=== PATIENT | male | born 1965 | race Hispanic/Latino ===

== ENCOUNTER 2019-06-17 14:10 | Emergency (ER) | payer SELFPAY ==
[~2019-06-17] VITALS: Ht 177.8 cm; Wt 99.8 kg
[2019-06-17 15:20] LABS: ANION GAP 14.8 mmol/L (8-16); CALCIUM 9.2 mg/dL (8.4-10.2); CREATININE, SERUM 4.43 mg/dL (0.72-1.25); POTASSIUM 3.8 mmol/L (3.5-5.1)
== END 2019-06-17 17:32 | disposition home or self-care (01) ==
LOC: ER 14:10
DX: R94.4 Abnormal results of kidney function studies (principal); I12.0 Hypertensive chronic kidney disease with stage 5 chronic kidney disease or end stage renal disease; E11.22 Type 2 diabetes mellitus with diabetic chronic kidney disease; N18.6 End stage renal disease; Z99.2 Dependence on renal dialysis
CPT/HCPCS: 36415; 80048; 99284

== ENCOUNTER 2019-10-18 10:16 | Inpatient (IN) | payer MEDICARE, OTHER ==
[2019-10-17 19:47] VITALS: BP 150/76
[~2019-10-18] VITALS: Ht 177.8 cm; Wt 87.8 kg
[~2019-10-18 10:16] MED LIST: CARVEDILOL12.5 MG PO; FLOMAX0.4 MG PO; LISINOPRIL10 MG PO; METFORMIN HCL500 MG PO
[2019-10-18 12:58] LABS: BASOPHILS % 0.6 % (0.0-1.0); EOSINOPHILS % 0.6 % (0.0-6.0); LYMPHOCYTES # (AUTO) 0.3 (1.0-3.2); LYMPHOCYTES % 6.4 % (18.0-39.1); MEAN CORPUSCULAR HEMOGLOBIN 33.5 pg (28-32); MEAN CORPUSCULAR HGB CONC 33.7 g/dL (31-35); MEAN CORPUSCULAR VOLUME 99.5 fL (81-99); MONOCYTES # (AUTO) 0.7 (0.2-0.8); NEUTROPHILS # (AUTO) 3.8 (2.1-6.9); NEUTROPHILS % 77.4 % (38.7-80.0); PLATELET COUNT 103 x10e3/uL (140-360); RED BLOOD COUNT 1.82 x10e6/uL (4.3-5.7); RED CELL DISTRIBUTION WIDTH 20.3 % (11.7-14.4)
[2019-10-18 13:00] LABS: HEMOGLOBIN 6.1 g/dL (14.0-18.0)
[2019-10-18 13:01] LABS: HEMATOCRIT 18.1 % (38.2-49.6)
[2019-10-18 13:02] LABS: INR 1.11
[2019-10-18 13:03] LABS: PARTIAL THROMBOPLASTIN TIME 30.1 seconds (23.8-35.5)
[2019-10-18 13:09] LABS: ALBUMIN 2.6 g/dL (3.5-5.0); ALBUMIN/GLOBULIN RATIO 0.7 (0.8-2.0); ANION GAP 16.6 mmol/L (8-16); CALCIUM 8.7 mg/dL (8.4-10.2); CREATININE, SERUM 4.43 mg/dL (0.72-1.25); POTASSIUM 4.6 mmol/L (3.5-5.1)
[2019-10-18 14:56] LABS: CREATINE KINASE MB 1.2 ng/mL (0-5.0)
[2019-10-18 15:20] VITALS: BP 142/70
--- NOTE | 2019-10-18 15:20 | NUR ---
Received patient from ER lying in bed with eyes open. Respiration even and unlabored without SOB. Call light in reach.
--- NOTE | 2019-10-18 15:20 | NUR ---
Verbal order given by Dr. Medina to call Dialysis for stat HD and transfuse 2 Units PRBC with HD.
[2019-10-18 16:02] VITALS: BP 142/70
[2019-10-18] MEDS ORDERED: ONDANSETRON HCL INJ 2MG/ML 2ML 2 MG/ML VIAL IV PRN (16:15)
[2019-10-18] MEDS ORDERED: DIPHENHYDRAMINE HCL 25 MG CAP PO PRN (16:15)
[2019-10-18] MEDS ORDERED: DEXTROSE 50% SYRINGE 50 ML IV PRN (16:45)
[2019-10-18] MEDS ORDERED: NEOMYCIN/POLYMYXIN/BACITRACIN 15 GM TUBE TOP PRN (17:15)
[2019-10-18] MEDS: INSULIN LISPRO 100 UNIT/1 ML 3ML VIAL SQ SCH ×2 (17:20→22:32)
[2019-10-18] MEDS: SALINE 0.65% NAS SOLN 1 SPRAY BTL SCH ×2 (17:25→23:54)
[2019-10-18] MEDS: CARVEDILOL 3.125 MG TAB PO SCH (17:46)
[2019-10-18] MEDS: SODIUM CHLORIDE 0.9% 250ML 250 ML IV ONE ×2 (17:46→17:47)
[2019-10-18] MEDS ORDERED: SODIUM CHLORIDE 0.9% 1000ML 2,000 ML ONE (18:42)
--- NOTE | 2019-10-18 19:03 | NUR ---
Report given to shift production supervisor. Respiratory even and unlabored without SOB. Call light in reach.
[2019-10-18 19:47] VITALS: BP 150/76
--- NOTE | 2019-10-18 19:47 | NUR ---
NOTIFIED DR. BOWLES AT THIS TIME REGARDING TEMP READING 100.8. SAID TO GIVE TYLENOL PO 975MG ONCE AND PROCEED WITH BLOOD TRANSFUSION. ALSO ORDERED CXRAY.
[2019-10-18] MEDS ORDERED: ACETAMINOPHEN 325 MG TAB PO STA (19:48)
--- NOTE | 2019-10-18 20:15 | Consultation ---
DATE OF CONSULTATION: 10/18/2019 Hospital Consultation HISTORY OF PRESENT ILLNESS: I was kindly asked to see this 54-year-old man for evaluation of epistaxis. He is known to me from his recent hospitalization at [facility], where his epistaxis was treated with silver nitrate cautery, which failed to adequately control his symptoms followed by Surgicel packing. The patient reports he presented to another physician to have the packing removed and within a half hour after removal of the nasal packing, he began having intermittent right-sided nasal bleeding. He presented to [facility] Emergency Department with a complaint of weakness and was found to be anemic and was admitted for evaluation and treatment. PAST MEDICAL HISTORY AND PAST SURGICAL HISTORY: Reviewed in detail in the chart and is pertinent for end-stage renal disease, necessitating dialysis. PHYSICAL EXAMINATION: The tympanic membranes and external auditory canals are normal bilaterally. He has a moderate nasal septal deviation to the left. There is vasodilation of fresh blood in the right nasal cavity. The nose was anesthetized with 2% Pontocaine and decongested with Afrin. On fiberoptic diagnostic rhinoscopy, the only bleeding point identified was the right mid and anterior nasal septum. This area was cauterized with silver nitrate. Oral cavity and pharyngeal examination were unremarkable. There was no palpable cervical adenopathy. ASSESSMENT: 1. Epistaxis. 2. Nasal septal deviation. 3. Status post silver nitrate cautery of right anterior nasal septum. PLAN: 1. [place] nasal spray 2 puffs each side of nose q.4 hours while awake. 2. Neosporin ointment applied to each side of the nose t.i.d. Thank you very much for this consultation. MD ELIEL Tolentino/SABINEL /[id number]
[2019-10-18] MEDS ORDERED: SODIUM CHLORIDE 0.9% 1000ML 2,000 ML IV PRN (21:00)
[2019-10-18] MEDS ORDERED: SODIUM CHLORIDE 0.9% 250ML 500 ML IV PRN (21:00)
[2019-10-18] MEDS ORDERED: HEPARIN SOD (PORCINE) 1000 UNIT/ML SDV IV PRN (21:00)
--- NOTE | 2019-10-18 21:06 | Diagnostic Imaging Report ---
EXAM: CHEST SINGLE (PORTABLE) DATE: 10/18/2019 7:48 PM INDICATION: ^FEVER ^[id number] ^2034 COMPARISON: Chest x-ray, 07/11/2019 FINDINGS: Lines and tubes: Stable appearance of tunneled right IJ dialysis catheter. Wire sternotomy sutures are again noted. There is mild enlargement of the cardiac silhouette, stable from last exam. There is mild central pulmonary vascular prominence which appears increased. No peripheral consolidation or large pleural effusion. No pneumothorax. Upper abdomen unremarkable. No acute bony abnormality. IMPRESSION: Cardiomegaly with central pulmonary vascular prominence appears increased since last exam. Likely interstitial edema asymmetrically prominent in the right lung. Signed by: Dr. Hema Zapata M.D. on 10/18/2019 9:03 PM
[2019-10-18 22:19] LABS: % IRON SATURATION 21 % (15-50); IRON 47 ug/dL (65-175); TOTAL IRON BINDING CAPACITY 223 ug/dL (261-478); TRANSFERRIN 159 mg/dL (174-364)
[2019-10-18] MEDS: NEOMYCIN/POLYMYXIN/BACITRACIN 15 GM TUBE TOP SCH (22:32)
[2019-10-18 22:55] LABS: FOLATE 9.5 ng/mL (7.0-15.4)
[2019-10-18 23:09] LABS: FERRITIN > 2000.00 ng/mL (21.81-274.66)
[2019-10-19] VITALS (8 sets, daily range): BP systolic 153–171; BP diastolic 73–79
[2019-10-19 06:14] LABS: BASOPHILS % 0.4 % (0.0-1.0); EOSINOPHILS % 0.6 % (0.0-6.0); HEMATOCRIT 24.4 % (38.2-49.6); HEMOGLOBIN 8.1 g/dL (14.0-18.0); LYMPHOCYTES # (AUTO) 0.3 (1.0-3.2); LYMPHOCYTES % 6.4 % (18.0-39.1); MEAN CORPUSCULAR HEMOGLOBIN 31.9 pg (28-32); MEAN CORPUSCULAR HGB CONC 33.2 g/dL (31-35); MEAN CORPUSCULAR VOLUME 96.1 fL (81-99); MONOCYTES # (AUTO) 0.6 (0.2-0.8); MONOCYTES % 12.5 % (4.4-11.3); NEUTROPHILS # (AUTO) 4.1 (2.1-6.9); NEUTROPHILS % 78.9 % (38.7-80.0); PLATELET COUNT 103 x10e3/uL (140-360); RED BLOOD COUNT 2.54 x10e6/uL (4.3-5.7); RED CELL DISTRIBUTION WIDTH 19.9 % (11.7-14.4)
--- NOTE | 2019-10-19 06:14 | Diagnostic Imaging Report ---
EXAMINATION: Chest AP portable INDICATION: Pulmonary edema. COMPARISON: 10/18/19 FINDINGS: TUBES and LINES: Tiny old right IJ dialysis catheter is unchanged in position. LUNGS: There is mild prominence of the central pulmonary vasculature, consistent with pulmonary venous congestion. Bibasilar subsegmental atelectasis. PLEURA: No pleural effusion or pneumothorax. HEART AND MEDIASTINUM: Cardiac size is mildly enlarged. BONES AND SOFT TISSUES: No acute osseous lesion. Median sternotomy wires. UPPER ABDOMEN: No free air under the diaphragm. Metallic wire projected on the superior left hemithorax, likely outside the patient. IMPRESSION: Bilateral pulmonary venous congestion, unchanged. Signed by: Dr. Ricki Handley M.D. on 10/19/2019 6:10 AM
[2019-10-19 06:23] LABS: PROTHROMBIN TIME 13.8 seconds (11.9-14.5)
[2019-10-19 06:30] LABS: ANION GAP 12.6 mmol/L (8-16); CALCIUM 8.9 mg/dL (8.4-10.2); CREATININE, SERUM 2.98 mg/dL (0.72-1.25); POTASSIUM 3.6 mmol/L (3.5-5.1)
[2019-10-19] MEDS: SALINE 0.65% NAS SOLN 1 SPRAY BTL SCH ×5 (06:33→21:29)
--- NOTE | 2019-10-19 06:50 | NUR ---
Received patient lying in bed with eyes open. Respiration even and unlabored without SOB. At this time noted productive coughing on patient. Last oral temperature is 99.9F. Call light in reach.
--- NOTE | 2019-10-19 07:48 | NUR ---
Patient is transferred to room 176. Report given to RNDanna. Patient's brother Stefan is notified about the room transfer.
[2019-10-19 08:02] LABS: ANISOCYTOSIS MODE; EOSINOPHILS % (MANUAL) 3 % (0-7); LYMPHOCYTES % (MANUAL) 6 % (19-48); MONOCYTES % (MANUAL) 6 % (3.4-9.0); MYELOCYTES % (MANUAL) 1 % (0-0); NEUTROPHILS % (MANUAL) 83 % (40-74); PLATELET ESTIMATE MODERATELY DECREASED; PLATELET MORPHOLOGY COMMENT NORMAL; RBC MORPHOLOGY COMMENT ABNORMAL
[2019-10-19] MEDS: INSULIN LISPRO 100 UNIT/1 ML 3ML VIAL SQ SCH ×4 (09:15→21:00)
[2019-10-19] MEDS: NEOMYCIN/POLYMYXIN/BACITRACIN 15 GM TUBE TOP SCH ×3 (09:17→21:28)
[2019-10-19] MEDS: CARVEDILOL 3.125 MG TAB PO SCH ×2 (09:17→17:39)
[2019-10-19] MEDS: CYANOCOBALAMIN INJ 1,000 MCG/ML VIAL IM SCH (09:18)
--- NOTE | 2019-10-19 10:32 | Diagnostic Imaging Report ---
EXAMINATION: CHEST SINGLE (PORTABLE) INDICATION: Cough, fever. COMPARISON: Chest radiograph 10/19/2019. FINDINGS: TUBES and LINES: Right IJ tunneled hemodialysis catheter with tip terminating at the cavoatrial junction. LUNGS: Low lung volumes with central vascular congestion. Patchy bibasilar opacities. Mild interstitial opacities. PLEURA: No pleural effusion or pneumothorax. HEART AND MEDIASTINUM: The cardiomediastinal silhouette is mildly enlarged, likely accentuated by portable technique. BONES AND SOFT TISSUES: No acute osseous abnormality. Status post median sternotomy. UPPER ABDOMEN: No free air under the diaphragm. IMPRESSION: Low lung volumes with central vascular congestion. Patchy bibasilar opacities, which may represent atelectasis or infection in the appropriate clinical setting. Signed by: Dr. Navarro Sapp MD on 10/19/2019 10:28 AM
[2019-10-19] MEDS ORDERED: CEFTRIAXONE SOD 1 GM/NS 50 ML 50 ML IV ONE (12:30)
[2019-10-19] MEDS ORDERED: DIPHENHYDRAMINE HCL 25 MG CAP PO ONE (12:30)
[2019-10-19] MEDS ORDERED: VANCOMYCIN 1GM/NS 250 ML 250 ML IV ONE (12:30)
[2019-10-19] MEDS ORDERED: DIPHENHYDRAMINE HCL 25 MG CAP PO NR (12:45)
--- NOTE | 2019-10-19 13:21 | NUR ---
DPA DONE VIA PHONE AND THROUGH RECORDS DUE TO ISOLATION.
[2019-10-19] MEDS: AZITHROMYCIN 250 MG TAB PO SCH (14:03)
--- NOTE | 2019-10-19 16:28 | NUR ---
informed receiving nurse patient with elevated temperature and call placed to MD for medication orders, no answer.
[2019-10-19] MEDS: LACTOBACILLUS ACIDOPHILUS CAPSULE PO SCH (17:43)
[2019-10-19] MEDS: EPOETIN ALFA-EPBX 10,000 UNIT/ML VIAL SC SCH (21:28)
[2019-10-20] VITALS (10 sets, daily range): BP systolic 133–185; BP diastolic 63–84
--- NOTE | 2019-10-20 01:14 | NUR ---
Dr. Lita alejandro for elevated temp.
[2019-10-20 05:43] LABS: BASOPHILS % 0.2 % (0.0-1.0); EOSINOPHILS % 0.2 % (0.0-6.0); HEMATOCRIT 22.7 % (38.2-49.6); HEMOGLOBIN 7.6 g/dL (14.0-18.0); LYMPHOCYTES # (AUTO) 0.3 (1.0-3.2); LYMPHOCYTES % 6.3 % (18.0-39.1); MEAN CORPUSCULAR HEMOGLOBIN 32.3 pg (28-32); MEAN CORPUSCULAR HGB CONC 33.5 g/dL (31-35); MEAN CORPUSCULAR VOLUME 96.6 fL (81-99); MONOCYTES # (AUTO) 0.6 (0.2-0.8); MONOCYTES % 11.2 % (4.4-11.3); NEUTROPHILS % 81.5 % (38.7-80.0); PLATELET COUNT 89 x10e3/uL (140-360); RED BLOOD COUNT 2.35 x10e6/uL (4.3-5.7); RED CELL DISTRIBUTION WIDTH 20.1 % (11.7-14.4)
[2019-10-20 05:59] LABS: ANION GAP 14.8 mmol/L (8-16); CALCIUM 8.5 mg/dL (8.4-10.2); CREATININE, SERUM 4.07 mg/dL (0.72-1.25); POTASSIUM 3.8 mmol/L (3.5-5.1)
[2019-10-20] MEDS: SALINE 0.65% NAS SOLN 1 SPRAY BTL SCH ×5 (06:38→21:13)
--- NOTE | 2019-10-20 07:00 | NUR ---
BEDSIDE SHIFT REPORT RECEIVED FROM THE SENIOR MEDIA DIRECTOR RN. EDUCATED PT ABOUT FALL PRECAUTIONS. PT VERBALIZED UNDERSTANDING. CALL LIGHT WITH IN EASY REACH. INSTRUCTED PT TO USE CALL LIGHT FOR ALL THE NEEDS. BED IS LOW AND LOCKED. SIDE RAILS X2. FAMILY MEMBER AT BEDSIDE.BED ALARM IS ON. PT DENIES NEEDS AT THIS TIME.
[2019-10-20] MEDS: NEOMYCIN/POLYMYXIN/BACITRACIN 15 GM TUBE TOP SCH ×3 (09:00→21:12)
[2019-10-20] MEDS: IRON SUCROSE 100 MG in SODIUM CHLORIDE 0.9% 100 ML 100 ML IV SCH (09:00)
[2019-10-20] MEDS: LACTOBACILLUS ACIDOPHILUS CAPSULE PO SCH ×2 (09:11→16:49)
[2019-10-20] MEDS: AZITHROMYCIN 250 MG TAB PO SCH (09:11)
[2019-10-20] MEDS: CARVEDILOL 3.125 MG TAB PO SCH ×2 (09:11→16:49)
[2019-10-20] MEDS: CYANOCOBALAMIN INJ 1,000 MCG/ML VIAL IM SCH (09:12)
[2019-10-20] MEDS: INSULIN LISPRO 100 UNIT/1 ML 3ML VIAL SQ SCH ×4 (09:29→21:00)
--- NOTE | 2019-10-20 12:10 | Consultation ---
DATE OF CONSULTATION: REASON FOR CONSULTATION: Pneumonia, bronchitis, viral. HISTORY OF PRESENT ILLNESS: This patient who is a 54-year-old male, history of diabetes mellitus, end-stage renal disease on hemodialysis, legally blind, on hemodialysis, Monday, Monday, Monday. He was recently diagnosed with liver cirrhosis. The patient comes in with nosebleed. Because of nose bleed the patient was admitted. He was already seen by ENT, by GI. Of interest, the patient also complained of cough and fever. Because we are in the mid of COVID-19 there was concern about that, so respiratory panel was sent and it came back, his human metapneumovirus was positive. The rest were all negative. The patient who is currently lying in bed comfortably. LABORATORY DATA: Reviewed. His white count is 4.86, hemoglobin 6.1 on admission, today is 7.6. He received 2 units of blood. Platelet 103, dropped to 89. His sodium 132, potassium 3.8, and creatinine 4.07. The patient was currently on insulin, probiotic, azithromycin and he received also a dose of Rocephin. His chest x-ray on October 18 showed low lung volume, congestion, patchy bibasilar opacities which may represent atelectasis. The patient is currently lying in bed comfortably. PHYSICAL EXAMINATION: GENERAL: He is currently alert, oriented, does not seem in acute distress. VITAL SIGNS: His T-max is 101.4. HEENT: Normocephalic. NECK: Supple. CHEST: Few crackles bilateral. COR: S1 and S2. No S3, S4, or murmur. ABDOMEN: Soft. Bowel sounds present. No tenderness. EXTREMITIES: No edema. SKIN: No rash. IMPRESSION: 1. Fever and the patient with liver cirrhosis, end-stage renal disease. Continue with Rocephin. Obtain blood culture. We probably have a viral pneumonitis on top of his other medical problem. 2. Liver cirrhosis. 3. End-stage renal disease, on hemodialysis. 4. Legally blind. 5. We will keep the patient on droplet isolation for the time being. We will follow. MD NERISSA Chang/MODL /[id number]
[2019-10-20] MEDS ORDERED: SODIUM CHLORIDE 0.9% 250ML 250 ML ONE (12:14)
[2019-10-20] MEDS: VANCOMYCIN 1GM/NS 250 ML 250 ML IV SCH (12:25)
[2019-10-20] MEDS: CEFTRIAXONE SOD 1 GM/NS 50 ML 50 ML IV SCH (12:25)
--- NOTE | 2019-10-20 19:45 | NUR ---
Received patient from day nurse, patient is alert and oriented x3. patient is legally blind and hence extreme fall precautions maintained.
[2019-10-21] VITALS (8 sets, daily range): BP systolic 128–159; BP diastolic 61–79
[2019-10-21] MEDS: PANTOPRAZOLE 40 MG 10ML VIAL IV SCH ×2 (02:44→10:50)
[2019-10-21 05:31] LABS: BASOPHILS % 0.1 % (0.0-1.0); HEMATOCRIT 21.6 % (38.2-49.6); HEMOGLOBIN 7.1 g/dL (14.0-18.0); LYMPHOCYTES # (AUTO) 0.4 (1.0-3.2); LYMPHOCYTES % 5.5 % (18.0-39.1); MEAN CORPUSCULAR HEMOGLOBIN 32.1 pg (28-32); MEAN CORPUSCULAR HGB CONC 32.9 g/dL (31-35); MEAN CORPUSCULAR VOLUME 97.7 fL (81-99); MONOCYTES # (AUTO) 0.6 (0.2-0.8); NEUTROPHILS # (AUTO) 6.8 (2.1-6.9); NEUTROPHILS % 86.8 % (38.7-80.0); PLATELET COUNT 81 x10e3/uL (140-360); RED BLOOD COUNT 2.21 x10e6/uL (4.3-5.7); RED CELL DISTRIBUTION WIDTH 18.9 % (11.7-14.4)
[2019-10-21 05:51] LABS: ALBUMIN 2.4 g/dL (3.5-5.0); ANION GAP 18.1 mmol/L (8-16); BILIRUBIN,DIRECT 6.8 mg/dL (0.0-0.5); CALCIUM 8.4 mg/dL (8.4-10.2); POTASSIUM 4.1 mmol/L (3.5-5.1)
--- NOTE | 2019-10-21 07:13 | NUR ---
Patient condition throughout the night was stable, patient endorsed to next shift for continuity of care.
--- NOTE | 2019-10-21 07:52 | NUR ---
Paged to notify of Hgb 7.1
[2019-10-21] MEDS ORDERED: SODIUM CHLORIDE 0.9% 250ML 250 ML IV ONE (08:30)
[2019-10-21] MEDS: AZITHROMYCIN 250 MG TAB PO SCH (08:56)
[2019-10-21] MEDS: LACTOBACILLUS ACIDOPHILUS CAPSULE PO SCH ×2 (08:56→16:38)
[2019-10-21] MEDS: NEOMYCIN/POLYMYXIN/BACITRACIN 15 GM TUBE TOP SCH ×2 (08:56→12:43)
[2019-10-21] MEDS: IRON SUCROSE 100 MG in SODIUM CHLORIDE 0.9% 100 ML 100 ML IV SCH (08:57)
[2019-10-21] MEDS: CYANOCOBALAMIN INJ 1,000 MCG/ML VIAL IM SCH (08:57)
[2019-10-21] MEDS: CARVEDILOL 3.125 MG TAB PO SCH ×2 (08:57→16:38)
[2019-10-21] MEDS: SALINE 0.65% NAS SOLN 1 SPRAY BTL SCH ×4 (09:05→22:00)
[2019-10-21] MEDS: INSULIN LISPRO 100 UNIT/1 ML 3ML VIAL SQ SCH ×4 (09:05→21:00)
[2019-10-21] MEDS ORDERED: NEOMYCIN/POLYMYXIN/BACITRACIN 15 GM TUBE TOP PRN (15:00)
[2019-10-21 15:56] LABS: ALPHA-1-ANTITRYPSIN 171 mg/dL (101-187)
[2019-10-21] MEDS: CEFTRIAXONE SOD 1 GM/NS 50 ML 50 ML IV SCH (16:38)
[2019-10-21] MEDS: EPOETIN ALFA-EPBX 10,000 UNIT/ML VIAL SC SCH (16:39)
[2019-10-21] MEDS: VANCOMYCIN 1GM/NS 250 ML 250 ML IV SCH (17:00)
--- NOTE | 2019-10-21 19:20 | NUR ---
BEDSIDE NURSING SHIFT REPORT COMPLETED WITH MORNING NURSE. PT ALERT AND ORIENTED, LYING IN BED HOB 45 DEGREES. DENIES PAIN AT THIS TIME. CALL LIGHT WITHIN REACH. WILL CONTINUE TO MONITOR.
--- NOTE | 2019-10-21 19:29 | NUR ---
Report given to oncoming nurse. No s/s of acute distress noted. Side rails upx2, call light within reach, bed alarm on.
[2019-10-22] VITALS (8 sets, daily range): BP systolic 150–169; BP diastolic 71–81
--- NOTE | 2019-10-22 00:30 | NUR ---
ROUNDS WITH DR. Alice GRAMAJO, INQUIRED ABOUT US ABDOMEN ORDERED PREVIOUSLY.
[2019-10-22] MEDS: PANTOPRAZOLE 40 MG 10ML VIAL IV SCH ×2 (00:45→12:24)
[2019-10-22] MEDS: SALINE 0.65% NAS SOLN 1 SPRAY BTL SCH ×5 (06:00→21:49)
--- NOTE | 2019-10-22 06:00 | NUR ---
SPOKE WITH SENIOR VISUAL DESIGNER X2 REGARDING US ABDOMEN ORDERED BY DR. Alice GRAMAJO. SENIOR VISUAL DESIGNER STATED HE WILL INFORM [facility] TECH THAT DOES ULTRASOUND TO FOLLOW UP WITH US ABDOMEN ORDER.
[2019-10-22] MEDS: INSULIN LISPRO 100 UNIT/1 ML 3ML VIAL SQ SCH ×4 (07:30→21:00)
--- NOTE | 2019-10-22 09:02 | Diagnostic Imaging Report ---
TECHNIQUE: Grayscale ultrasound of the right abdomen. INDICATION: 54-year-old man with jaundice. COMPARISON: Chest, abdomen, and pelvis CT 07/12/2019. FINDINGS: MIDLINE VASCULATURE: The visualized inferior vena cava is patent. Portal vein is patent. The maximum visualized aortic diameter is 2.1 cm. LIVER: The liver is normal in echogenicity with smooth contour. No focal lesions. BILIARY: Gallbladder: Small amount of sludge in the gallbladder. Gallbladder wall is thickened and measures 0.5 cm. No pericholecystic fluid or distention. Negative sonographic Fonseca sign. Common bile duct measures 0.4 cm, within normal limits. No intrahepatic biliary ductal dilatation. PANCREAS: Visualized portions of the pancreas are unremarkable. PERITONEUM: Trace ascites. RIGHT KIDNEY: The right kidney is normal in size. No hydronephrosis. No sonographically evident solid mass lesion. IMPRESSION: No biliary ductal dilatation. Small amount of gallbladder sludge. Nonspecific thickened gallbladder wall. Trace ascites. Signed by: Ana Lazo MD on 10/22/2019 8:58 AM
[2019-10-22] MEDS: CYANOCOBALAMIN INJ 1,000 MCG/ML VIAL IM SCH (09:11)
[2019-10-22] MEDS: LACTOBACILLUS ACIDOPHILUS CAPSULE PO SCH ×2 (09:13→16:34)
[2019-10-22] MEDS: CARVEDILOL 3.125 MG TAB PO SCH ×2 (09:13→16:34)
[2019-10-22] MEDS: AZITHROMYCIN 250 MG TAB PO SCH (09:13)
[2019-10-22] MEDS: IRON SUCROSE 100 MG in SODIUM CHLORIDE 0.9% 100 ML 100 ML IV SCH (09:21)
[2019-10-22] MEDS ORDERED: ONDANSETRON HCL 4 MG ORAL DISINTEGRATING TAB PO PRN (10:45)
[2019-10-22] MEDS: CEFTRIAXONE SOD 1 GM/NS 50 ML 50 ML IV SCH (11:15)
--- NOTE | 2019-10-22 19:21 | NUR ---
REPORT GIVEN TO ONCOMING NURSE, WALKING ROUNDS COMPLETE.
--- NOTE | 2019-10-22 19:32 | NUR ---
Patient received sitting up in bed. AAO x 3. Patient had no complaints of pain. No signs of respiratory distress. Fall precautions implemented. Patient instructed to call for assistance when needed. Call light within reach.
[2019-10-23] VITALS: BP 165/79
[2019-10-23] MEDS: PANTOPRAZOLE 40 MG 10ML VIAL IV SCH (03:22)
[2019-10-23 04:00] VITALS: BP 167/79
[2019-10-23 06:00] LABS: EOSINOPHILS # (AUTO) 0.1 (0.0-0.4); EOSINOPHILS % 2.1 % (0.0-6.0); HEMOGLOBIN 8.3 g/dL (14.0-18.0); LYMPHOCYTES # (AUTO) 0.5 (1.0-3.2); LYMPHOCYTES % 12.6 % (18.0-39.1); MEAN CORPUSCULAR HEMOGLOBIN 32.5 pg (28-32); MEAN CORPUSCULAR HGB CONC 33.2 g/dL (31-35); MONOCYTES # (AUTO) 0.4 (0.2-0.8); MONOCYTES % 8.6 % (4.4-11.3); NEUTROPHILS # (AUTO) 3.2 (2.1-6.9); NEUTROPHILS % 76.2 % (38.7-80.0); PLATELET COUNT 86 x10e3/uL (140-360); RED BLOOD COUNT 2.55 x10e6/uL (4.3-5.7); RED CELL DISTRIBUTION WIDTH 17.8 % (11.7-14.4)
[2019-10-23] MEDS: SALINE 0.65% NAS SOLN 1 SPRAY BTL SCH ×2 (06:13→09:49)
[2019-10-23 06:38] LABS: ALBUMIN 2.2 g/dL (3.5-5.0); ALBUMIN/GLOBULIN RATIO 0.6 (0.8-2.0); ANION GAP 12.9 mmol/L (8-16); CALCIUM 7.8 mg/dL (8.4-10.2); CREATININE, SERUM 4.25 mg/dL (0.72-1.25); POTASSIUM 3.9 mmol/L (3.5-5.1)
--- NOTE | 2019-10-23 06:57 | NUR ---
Patient resting comfortably. Walking rounds done. BSSR given to oncoming nurse.
[2019-10-23] MEDS: INSULIN LISPRO 100 UNIT/1 ML 3ML VIAL SQ SCH (07:30)
[2019-10-23 08:00] VITALS: BP 162/83
[2019-10-23 08:49] VITALS: BP 162/83
--- NOTE | 2019-10-23 09:14 | NUR ---
GOT VERBAL CONSENT DUE TO ISOLATION TO START [facility] FOR OUTPATIENT DIALYSIS FILED IN CHART. LEFT COVID LETTER ON CHART FOR DR FRIED. WILL FAX CLINICALS TO [facility] ADMISSIONS.
--- NOTE | 2019-10-23 10:53 | NUR ---
SPOKE WITH AARON [place] [facility], THIS PT IS ALREADY A [facility] PT, HE MOVED TO THIS AREA FROM [place] THIS PAST JUNE. HE HAS BEEN LIVING IN THIS AREA SINCE THEN AND HAS ESTABLISHED A RESIDENT AT THIS POINT. HE WILL RESUME HIS REGULAR TIME AND CHAIR UPON DISCHARGE FOR DIALYSIS BUT SHE WILL CALL BACK WITH THAT INFORMATION AT A LATER TIME. SW WILL CONTINUE TO MONITOR.
[2019-10-23 12:00] VITALS: BP 163/86
--- NOTE | 2019-10-23 15:22 | NUR ---
WAS CONTACTED BY [facility] REP. SHE STATES THE FAMILY REACHED OUT TO THEM TO CONSULT FOR SERVICES. LET THEM KNOW I WOULD LET THE DOCTOR AND CM KNOW.
--- NOTE | 2019-10-23 15:31 | Discharge Summary ---
PRIMARY CARE DOCTOR: Dr. Adin Faustin. FINAL DIAGNOSES: 1. Likely viral pneumonia. Cannot rule out bacterial. 2. Acute blood loss anemia due to epistaxis. 3. Recently diagnosed idiopathic cirrhosis. 4. End-stage renal disease. CONSULTANTS: 1. Dr. Murry, ENT. 2. Dr. Ritchie Boone, GI. 3. Dr. London, Infectious Disease. 4. Dr. Olivera, Nephrology. PROCEDURES AND STUDIES PERFORMED: Abdominal ultrasound. HISTORY: Per H and P. HOSPITAL COURSE: The patient was admitted for acute blood loss anemia due to epistaxis, 3 units of blood was given. His nosebleed was cauterized by Dr. Murry and currently the patient has not had any more epistaxis for 48 hours now. The patient also had a fever with cough. The patient was evaluated by Infectious Disease. His respiratory viral panel came back positive for human metapneumovirus, however empirically, the patient did get some IV antibiotics. Currently, his cough is better. I have discussed with Dr. London today. The patient will go home on three more doses of Levaquin. The patient was also dialyzed for his ESRD as far as his recently diagnosed cirrhosis, etiology is still unclear. However, his total bilirubin is coming down from 10 to 5. The patient will follow up with Dr. Murry and Dr. Boone as an outpatient. The patient was seen and examined today. It took 32 minutes in total to discharge this patient. CONDITION ON DISCHARGE: Improved. DISCHARGE MEDICATIONS: Please see medication reconciliation form. MD DEVEN Neal/FIDENCIO /[id number] cc: Adin Faustin
== END 2019-10-23 15:50 | disposition home or self-care (01) | DRG 811 ==
LOC: ER 10:16 → ERHOLD 13:12 → MED/SURG 15:37 → OBSVTOIN 22:29 → IMCU 10-19 07:55 → MED/SURG2 10-19 16:17
PROVIDERS: ADMIT Internal Medicine; ATTEND Internal Medicine
PROC: 30233N1 Transfusion of Nonautologous Red Blood Cells into Peripheral Vein, Percutaneous Approach (ICD-10-PCS; principal; 2019-10-18)
PROC: 5A1D70Z Performance of Urinary Filtration, Intermittent, Less than 6 Hours Per Day (ICD-10-PCS; 2019-10-18)
PROC: 093K8ZZ Control Bleeding in Nasal Mucosa and Soft Tissue, Via Natural or Artificial Opening Endoscopic (ICD-10-PCS; 2019-10-18)
DX: D62 Acute posthemorrhagic anemia (principal); J12.9 Viral pneumonia, unspecified; N18.6 End stage renal disease; R04.0 Epistaxis; I25.10 Atherosclerotic heart disease of native coronary artery without angina pectoris; Z95.1 Presence of aortocoronary bypass graft; Z99.2 Dependence on renal dialysis; H54.7 Unspecified visual loss; K74.60 Unspecified cirrhosis of liver; D63.1 Anemia in chronic kidney disease; J34.2 Deviated nasal septum
CPT/HCPCS: 36415; 71045; 76705; 80048; 80053; 80076; 82103; 82248; 82390; 82550; 82553; 82607; 82728; 82746; 82948; 83540; 84080; 84155; 84466; 84484; 85025; 85045; 85610; 85730; 86039; 86255; 86704; 86705; 86707; 86850; 86900; 86920; 87040; 87340; 87400; 87633; 90962; 99284; J0696; J1644; J1756; J2405; J3370; J3420; J7030; J7050; P9016

== ENCOUNTER 2019-12-23 10:09 | Emergency (ER) | payer MEDICARE, OTHER ==
[~2019-12-23] VITALS: Ht 177.8 cm; Wt 87.5 kg
--- OUTSIDE RECORDS SUMMARY | 2019-12-23 10:13 | XMS REPORT ---
Author Author [facility] t Organization [facility] Address [address] [place] [address] Phone Unavailable Care Team Providers Care Elect Equip Maint Eng Name Role Phone ADIN FAUSTIN PCP Alissa SALVADOR Attphys Unavailable CINDY ALVAREZ Attphys Unavailable Alissa SALVADORCHING Admphys Unavailable CINDY ALVAREZ Admphys Unavailable Payers Payer Name Policy Type Policy Number Effective Date Expiration Date Sarita jocelyn [facility] Medicare Complete [id number] 2019 00:00:00 [facility] [employer] [facility] [id number] 2018 00:00:00 [facility] Problems This patient has no known problems. Allergies, Adverse Reactions, Alerts Allergy Name Allergy Type Status Severity Reaction(s) Onset Date Inacti ve Date Treating Clinician Comments Source No Known Allergies DA Active U 2019-10-07 00:00:00 [facility] No Known Allergies DA Active U 2019-09-09 00:00:00 [facility] Medications Ordered Medication Name Filled Medication Name Start Date Stop Da te Current Medication? Ordering Clinician Indication Dosage Frequency Signature (SIG) Comments Components Source Carvedilol 12.5 Mg Tablet Carvedilol 12.5 Mg Tablet Yes 25 Twice A Day [facility] Lisinopril 10 Mg Tablet Lisinopril 10 Mg Tablet Yes [address] [facility] Metformin Hcl 500 Mg Tablet Metformin Hcl 500 Mg Tablet Yes 500 Daily [facility] Tamsulosin Hcl (Flomax*) 0.4 Mg Cap Tamsulosin Hcl (Flomax*) 0.4 Mg C ap Yes .4 Daily [facility] Procedures Procedure Date / Time Performed Performing Clinician Sour e US Abdomen limited 2019-10-22 00:00:00 YAJAIRA GRAMAJO [facility] Computed tomography of chest without contrast 2019-07-12 00:00:0 0 [address] [facility] CT of abdomen and pelvis without contrast 2019-07-12 00:00:00 YORDY RTUONG [facility] PERFORMANCE OF URINARY FILTRATION, <6 HRS/DAY 2019-07-12 00:00:[address] [facility] Encounters Start Date/Time End Date/Time Encounter Type Admission Type [facility] Facility Care Department Encounter ID Source 2019-10-18 22:29:00 2019-10-23 15:50:00 Discharged Inpatient 1 WES SALVADORKATELYNN [facility] [id number] [facility] 2019-09-24 15:47:00 2019-09-24 15:47:00 Outpatient [facility] [id number] [facility] 2019-08-07 08:54:00 2019-08-07 08:54:00 Registered Clinic [facility] [id number] [facility] 2019-07-12 09:43:00 2019-07-17 18:30:00 Discharged Inpatient 1 CINDY ALVAREZ [facility] [id number] [facility] 2019-06-17 14:10:00 2019-06-17 17:32:00 Departed Emergency Room [facility] [id number] [facility] Results Test Description Test Time Test Comments Results Result Comments Source Blood Culture 2019-10-25 11:35:00 Test Item Blood Culture (test code = 61821885) NO GROWTH AFTER 5 DAYS, FINAL REPORT [facility] CenterBedside Ngezrqj2195-67-54 11:41:00* Test Item Value Reference Range Interpretation Comments Bedside Glucose (test code = 45709-5) 131 70-120 Meter ID: [id number] Scott & White [facility] – BrenhamPlatelet Morphology Nngfirt1441-31-34 11:02:00* Test Item Value Reference Range Interpretation Comments Platelet Morphology Comment (test code = 30154-3) NO EDTA PLT CLUMP [facility] Dtesu8761-92-23 06:43:00* Test Item Value Reference Range Interpretation Comments Sodium Level (test code = 2951-2) 133 136-145 [facility] CenterPotassium Fsmpv4762-82-41 06:43:00* Test Item Value Reference Range Interpretation Comments Potassium Level (test code = 2823-3) 3.9 3.5-5.1 [facility] CenterChloride Vfagq2803-43-00 06:43:00* Test Item Value Reference Range Interpretation Comments Chloride Level (test code = 2075-0) 100 98-107 [facility] Medical CenterCarbon Dioxide Emhcj7784-58-55 06:43:00* Test Item Value Reference Range Interpretation Comments Carbon Dioxide Level (test code = 2028-9) 24 22-29 [facility] Medical CenterAnion Bxm7225-15-51 06:43:00* Test Item Value Reference Range Interpretation Comments Anion Gap (test code = 43304-1) 12.9 8-16 [facility] Medical CenterBlood Urea Hkkcddfu4496-63-67 06:43:00* Test Item Value Reference Range Interpretation Comments Blood Urea Nitrogen (test code = 3094-0) 54 7-26 [facility] Medical CenterCreatinine2020-03-25 06:43:00* Test Item Value Reference Range Interpretation Comments Creatinine (test code = 2160-0) 4.25 0.72-1.25 [facility] CenterBUN/Creatinine Uzznd5395-55-53 06:43:00* Test Item Value Reference Range Interpretation Comments BUN/Creatinine Ratio (test code = 3097-3) 13 6-25 [facility] Medical CenterEstimat Glomerular Filtration Rate 2019-10-23 06:43:00* Test Item Value Reference Range Interpretation Comments Estimat Glomerular Filtration Rate (test code = 334280566) 15 >60 Ranges were taken from the National Kidney Disease Education Program and the [facility] Kidney Foundation literature.Reference ranges:60 or greater: Ccdewz32-91 ( for 3 consecutive months): Chronic kidney disease 15 or less: Kidney failureSt. Luke's Health – Baylor St. Luke's Medical CenterGlucose Btuzg2532-42-36 06:43:00* Test Item Value Reference Range Interpretation Comments Glucose Level (test code = HKH6657) 158 74-118 [facility] CenterCalcium Jfeeb9563-26-36 06:43:00* Test Item Value Reference Range Interpretation Comments Calcium Level (test code = 12115-7) 7.8 8.4-10.2 [facility] Medical CenterTotal Fgakvbmqb9720-91-16 06:43:00* Test Item Value Reference Range Interpretation Comments Total Bilirubin (test code = 1975-2) 5.3 0.2-1.2 [facility] Medical CenterAspartate Amino Transf (AST/SGOT) 2019-10-23 06:43:00* Test Item Value Reference Range Interpretation Comments Aspartate Amino Transf (AST/SGOT) (test code = Aspartate Amino Transf (AST/SGOT)) 31 5-34 [facility] Medical CenterAlanine Aminotransferase (ALT/SGPT) 2019-10-23 06:43:00* Test Item Value Reference Range Interpretation Comments Alanine Aminotransferase (ALT/SGPT) (test code = 1742-6) 36 0-55 [facility] Medical CenterTotal Skkwllv4375-64-23 06:43:00* Test Item Value Reference Range Interpretation Comments Total Protein (test code = 2885-2) 5.8 6.5-8.1 [facility] Medical CenterAlbumin2020-03-25 06:43:00* Test Item Value Reference Range Interpretation Comments Albumin (test code = 1751-7) 2.2 3.5-5.0 [facility] Medical CenterGlobulin2020-03-25 06:43:00* Test Item Value Reference Range Interpretation Comments Globulin (test code = 05325-9) 3.6 2.3-3.5 [facility] Medical CenterAlbumin/Globulin Wapui0543-81-27 06:43:00 * Test Item Value Reference Range Interpretation Comments Albumin/Globulin Ratio (test code = 1759-0) 0.6 0.8-2.0 [facility] Medical CenterAlkaline Lnlpepslsfp9585-68-38 06:43:00* Test Item Value Reference Range Interpretation Comments Alkaline Phosphatase (test code = 6768-6) 630 40-150 [facility] Medical CenterWhite Blood Hrkgn7670-76-62 06:07:00* Test Item Value Reference Range Interpretation Comments White Blood Count (test code = 6690-2) 4.19 4.8-10.8 [facility] Medical CenterRed Blood Vhwwc6633-71-39 06:07:00* Test Item Value Reference Range Interpretation Comments Red Blood Count (test code = 789-8) 2.55 4.3-5.7 [facility] Medical CenterHemoglobin2020-03-25 06:07:00* Test Item Value Reference Range Interpretation Comments Hemoglobin (test code = 79497-8) 8.3 14.0-18.0 [facility] Medical CenterHematocrit2020-03-25 06:07:00* Test Item Value Reference Range Interpretation Comments Hematocrit (test code = 4544-3) 25.0 38.2-49.6 [facility] Medical CenterMean Corpuscular Mroynm0634-24-57 06:07:00* Test Item Value Reference Range Interpretation Comments Mean Corpuscular Volume (test code = 787-2) 98.0 81-99 [facility] Medical CenterMean Corpuscular Gaxvuuxukc5381-43-88 06:07:00* Test Item Value Reference Range Interpretation Comments Mean Corpuscular Hemoglobin (test code = 785-6) 32.5 28-32 [facility] Medical CenterMean Corpuscular Hemoglobin Concent 2019-10-23 06:07:00* Test Item Value Reference Range Interpretation Comments Mean Corpuscular Hemoglobin Concent (test code = 786-4) 33.2 31-35 [facility] Medical CenterRed Cell Distribution Qyoyb3494-74-01 06:07:00* Test Item Value Reference Range Interpretation Comments Red Cell Distribution Width (test code = 84737-2) 17.8 11.7 -14.4 [facility] Medical CenterPlatelet Gnxne6450-24-06 06:07:00* Test Item Value Reference Range Interpretation Comments Platelet Count (test code = 777-3) 86 140-360 [facility] Medical CenterNeutrophils (%) (Auto)2019-10-23 06:07:00 * Test Item Value Reference Range Interpretation Comments Neutrophils (%) (Auto) (test code = 68317-9) 76.2 38.7-80.0 [facility] Medical CenterLymphocytes (%) (Auto)2019-10-23 06:07:00 * Test Item Value Reference Range Interpretation Comments Lymphocytes (%) (Auto) (test code = 736-9) 12.6 18.0-39.1 [facility] Medical CenterMonocytes (%) (Auto)2019-10-23 06:07:00* Test Item Value Reference Range Interpretation Comments Monocytes (%) (Auto) (test code = 5905-5) 8.6 4.4-11.3 [facility] Medical CenterEosinophils (%) (Auto)2019-10-23 06:07:00 * Test Item Value Reference Range Interpretation Comments Eosinophils (%) (Auto) (test code = 713-8) 2.1 0.0-6.0 [facility] Medical CenterBasophils (%) (Auto)2019-10-23 06:07:00* Test Item Value Reference Range Interpretation Comments Basophils (%) (Auto) (test code = 706-2) 0.0 0.0-1.0 [facility] Medical CenterIM GRANULOCYTES %2019-10-23 06:07:00* Test Item Value Reference Range Interpretation Comments IM GRANULOCYTES % (test code = IM GRANULOCYTES %) 0.5 0.0- 1.0 [facility] Medical CenterNeutrophils # (Auto)2019-10-23 06:07:00* Test Item Value Reference Range Interpretation Comments Neutrophils # (Auto) (test code = 751-8) 3.2 2.1-6.9 [facility] Medical CenterLymphocytes # (Auto)2019-10-23 06:07:00* Test Item Value Reference Range Interpretation Comments Lymphocytes # (Auto) (test code = 45325-8) 0.5 1.0-3.2 [facility] Medical CenterMonocytes # (Auto)2019-10-23 06:07:00* Test Item Value Reference Range Interpretation Comments Monocytes # (Auto) (test code = 742-7) 0.4 0.2-0.8 [facility] Medical CenterEosinophils # (Auto)2019-10-23 06:07:00* Test Item Value Reference Range Interpretation Comments Eosinophils # (Auto) (test code = 711-2) 0.1 0.0-0.4 [facility] Medical CenterBasophils # (Auto)2019-10-23 06:07:00* Test Item Value Reference Range Interpretation Comments Basophils # (Auto) (test code = 704-7) 0.0 0.0-0.1 [facility] Medical CenterAbsolute Immature Granulocyte (auto 2019-10-23 06:07:00* Test Item Value Reference Range Interpretation Comments Absolute Immature Granulocyte (auto (rupinder t code = Absolute Immature Granulocyte (auto) 0.02 0-0.1 [facility] Medical CenterAlkaline Sqrgpxityms3914-64-29 03:42:00* Test Item Value Reference Range Interpretation Comments Alkaline Phosphatase (test code = 6768-6) 865 39-117 [facility] Medical CenterAlkaline Phosphatase Iso-Intestine 2019-10-23 03:42:00* Test Item Value Reference Range Interpretation Comments Alkaline Phosphatase Iso-Intestine (test code = 65026-7) 0 0-18 Performed at: [facility] Lab[address] [id number] Director: Roe Contreras MD, Phone: [phone] at: [address] [id number] Director: Dasha Lr MD, Ph one: [phone]. Luke's Health – [facility]lor St. Luke's Medical CenterAlkaline Phosphatase Dfa-Ksnw7375-17-25 03:42:00* Test Item Value Reference Range Interpretation Comments Alkaline Phosphatase Iso-Bone (test code = 58019-4) [address] [facility] Medical CenterAlkaline Phosphatase Vxi-Pycqt7228-90-25 03:42:00* Test Item Value Reference Range Interpretation Comments Alkaline Phosphatase Iso-Liver (test code = 53329-5) 79 1 3-88 [facility] Medical CenterHepatitis Be Oacqtvin2029-57-91 22:13:00 * Test Item Value Reference Range Interpretation Comments Hepatitis Be Antibody (test code = 92408-5) Negative Negative Performed at: [address] [id number] Hog Stomach Preparer: Dasha Lr MD, Phone: [phone]. Luke's Health – [facility]lor St. Luke's Medical CenterHepatitis B Core Total Sfplvfre0667-73-25 22:13:00* Test Item Value Reference Range Interpretation Comments Hepatitis B Core Total Antibody (test code = 41265-3) Negative Negative [facility] B Surface Zauxfmy2847-14-16 22:13:00* Test Item Value Reference Range Interpretation Comments Hepatitis B Surface Antigen (test code = 5196-1) Negative Negat [facility] B Core IgM Yjokvrio4897-92-28 22:13:00* Test Item Value Reference Range Interpretation Comments Hepatitis B Core IgM Antibody (test code = 74632-6) Negative Ne gative Performed at: - [facility] [id number] Director: Roe Contreras MD, Phone: [phone]. Luke's Health – [facility]lor St. Luke's Medical CenterAnti-Mitochondrial Smyfzxoz4715-61-20 22:13:00* Test Item Value Reference Range Interpretation Comments Anti-Mitochondrial Antibody (test code = 26118-6) <20.0 0.0- 20.0 Negative 0.0 - 20.0 Equivocal 20.1 - 24.9 Positive > 24.9Mitochondrial (M2) Antibodies are found in 90-96% ofpatients with primary bi liary cirrhosis.Performed at: - [facility] [id number] Director: Dasha Lr MD, Phone: [phone] [facility]evilleUS ABDOMEN YAYMCPF9180-59-87 08:51:00 [place] [address] Patient Name: VIOLETTE LAMB MR #: [id number] : 1965 Age/Sex: 54/M Req #: [id number] Adm Physician: PAWEL SALVADOR MD Ordered by: YAJAIRA GRAMAJO MD Report #: [id number] Location: [place] [address] Room/Bed: [facility] Procedure: 032 [id number] US/US ABDOMEN LIMITED Exam Date: 10/22/19 Exa m Time: 0745 REPORT STATUS: Signed TECHNIQUE: Grayscale ultrasound of the right abdomen. INDICATION: 54-yea r-old man with jaundice. COMPARISON: Chest, abdomen, and pelvis CT 07/12/20. FINDINGS: MIDLINE VASCULATURE: The visualized inferior vena cav a is patent. Portal vein is patent. The maximum visualized aortic diameter is 2.1 cm. LIVER: The liver is normal in echogenicity with smooth contour. No focal lesions. BILIARY: Gallbladder: Small amount of sludge in the gall bladder. Gallbladder wall is thickened and measures 0.5 cm. No pericholecystic fluid or distention. Negative sonographic Fonseca sign. Common bile duct yaya sures 0.4 cm, within normal limits. No intrahepatic biliary ductal dilatation. PANCREAS: Visualized portions of the pancreas are unremarkable. PERIT ONEUM: Trace ascites. RIGHT KIDNEY: The right kidney is normal in size. No hydronephrosis. No sonographically evident solid mass lesion. IMPRESSI ON: No biliary ductal dilatation. Small amount of gallbladder sludge. Non specific thickened gallbladder wall. Trace ascites. Signed by: Jim Lazo MD on 10/22/2019 8:58 AM Dictated By: JIM LAZO MD Electron ically Signed By: JIM LAZO MD on 10/22/19 0858 Transcribed By: DARRON on 10/22/19 0858 COPY TO: YAJAIRA GRAMAJO MD Hpzge-3-Twpfeeldhzp 2019-10-21 15:56:00* Test Item Value Reference Range Interpretation Comments Hranj-2-Ewnfefjwytr (test code = 1825-9) 171 101-187 Performed at: [facility], [place], [place] [id number] 4Lab Director: RACHELLE Singh MD, Phone: [phone]. Luke's Health – [facility]lor St. Luke's Medical CenterCeruloplasmin2020-03-23 15:56:00* Test Item Value Reference Range Interpretation Comments Ceruloplasmin (test code = 2064-4) 41.0 16.0-31.0 [facility] Medical CenterDirect Gswcbovzv9501-62-38 06:00:00* Test Item Value Reference Range Interpretation Comments Direct Bilirubin (test code = 41511-7) 6.8 0.0-0.5 [facility] Medical CenterChlamydia pneumoniae DNA (PCR)2019-10-20 05:32:00* Test Item Value Reference Range Interpretation Comments Chlamydia pneumoniae DNA (PCR) (test code = Chlamydia pneumoniae DNA (PCR)) NOT DETECTED NOT DETECT [facility] Medical CenterInfluenza Type A (RT-PCR)2019-10-20 05:32:00* Test Item Value Reference Range Interpretation Comments Influenza Type A (RT-PCR) (test code = 429861690) NOT DETECTED NOT DETECT [facility] Medical CenterMycoplasma pneumoniae (PCR)2019-10-20 05:32:00* Test Item Value Reference Range Interpretation Comments Mycoplasma pneumoniae (PCR) (test code = Mycoplasma pn eumoniae (PCR)) NOT DETECTED NOT DETECT [facility] Medical CenterInfluenza Type B (RT-PCR)2019-10-20 05:32:00* Test Item Value Reference Range Interpretation Comments Influenza Type B (RT-PCR) (test code = 011680724) NOT DETECTED NOT DETECT [facility] Medical CenterRespiratory Syncytial Virus (PCR) 2019-10-20 05:32:00* Test Item Value Reference Range Interpretation Comments Respiratory Syncytial Virus (PCR) (test code = 628144119) NO T DETECTED NOT DETECT [facility] Medical CenterBordetella pertussis DNA (PCR)2019-10-20 05:32:00* Test Item Value Reference Range Interpretation Comments Bordetella pertussis DNA (PCR) (test code = 211825190) NOT DETEC SHAGGY NOT DETECT [facility] Medical CenterParainfluenza Type 1 (PCR)2019-10-20 05:32:00* Test Item Value Reference Range Interpretation Comments Parainfluenza Type 1 (PCR) (test code = 437330619) NOT DETECTED NOT DETECT [facility] Medical CenterParainfluenza Type 2 (PCR)2019-10-20 05:32:00* Test Item Value Reference Range Interpretation Comments Parainfluenza Type 2 (PCR) (test code = 513514020) NOT DETECTED NOT DETECT [facility] Medical CenterParainfluenza Type 3 (PCR)2019-10-20 05:32:00* Test Item Value Reference Range Interpretation Comments Parainfluenza Type 3 (PCR) (test code = 523199161) NOT DETECTED NOT DETECT [facility] CenterParainfluenza Type 4 (PCR)2019-10-20 05:32:00* Test Item Value Reference Range Interpretation Comments Parainfluenza Type 4 (PCR) (test code = Parainfluenza Type 4 (PCR)) NOT DETECTED NOT DETECT [facility] Medical CenterRhinovirus (PCR)2019-10-20 05:32:00* Test Item Value Reference Range Interpretation Comments Rhinovirus (PCR) (test code = 080819424) NOT DETECTED NOT DETECT [facility] CenterHuman Metapneumovirus (PCR)2019-10-20 05:32:00* Test Item Value Reference Range Interpretation Comments Human Metapneumovirus (PCR) (test code = 579477240) DETECTED NO T DETECT [facility] CenterAden[facility] (PCR)2019-10-20 05:32:00* Test Item Value Reference Range Interpretation Comments Adenovirus (PCR) (test code = 283075161) NOT DETECTED NOT DETECT [facility] Medical CenterCoronavirus Type HKU1 (PCR)2019-10-20 05:32:00* Test Item Value Reference Range Interpretation Comments Coronavirus Type HKU1 (PCR) (test code = Coronavirus T ype HKU1 (PCR)) NOT DETECTED NOT DETECT [facility] CenterCoronavirus Type NL63 (PCR)2019-10-20 05:32:00* Test Item Value Reference Range Interpretation Comments Coronavirus Type NL63 (PCR) (test code = Coronavirus T ype NL63 (PCR)) NOT DETECTED NOT DETECT [facility] Medical CenterCoronavirus Type OC43 (PCR)2019-10-20 05:32:00* Test Item Value Reference Range Interpretation Comments Coronavirus Type OC43 (PCR) (test code = Coronavirus T ype OC43 (PCR)) NOT DETECTED NOT DETECT [facility] Medical CenterCoronavirus Type 229E (PCR)2019-10-20 05:32:00* Test Item Value Reference Range Interpretation Comments Coronavirus Type 229E (PCR) (test code = Coronavirus T ype 229E (PCR)) NOT DETECTED NOT DETECT Test performed at [facility] [place] [address] 7 1930RESULTS HAVE BEEN CALLED TO THE [facility] ([facility])2019-10-19 10:26:00 [place] [address] Patient Name: VIOLETTE LAMB MR #: [id number] : 1965 Age/Sex: 54/M Req #: [id number] Adm Physician: PAWEL SALVADOR MD Ordered by: PAWEL SALVADOR MD Report #: [id number] Location: [facility] Room/Bed: [place] [address] Procedure: [id number] -[id number] DX/CHEST SINGLE (PORTABLE) Exam Date: 10/19/19 Exam Time: 1000 REPORT STATUS: Sig nicole EXAMINATION: CHEST SINGLE (PORTABLE) INDICATION: Cough, fever. COMPARISON: Chest radiograph 10/19/2019. FINDINGS: TUBES and LI ROMAN: Right IJ tunneled hemodialysis catheter with tip terminating at the cavo atrial junction. LUNGS: Low lung volumes with central vascular congestion. Patchy bibasilar opacities. Mild interstitial opacities. PLEURA: No pleu ral effusion or pneumothorax. HEART AND MEDIASTINUM: The cardiomediastina l silhouette is mildly enlarged, likely accentuated by portable technique. BONES AND SOFT TISSUES: No acute osseous abnormality. Status post median st ernotomy. UPPER ABDOMEN: No free air under the diaphragm. IMPRESSI ON: Low lung volumes with central vascular congestion. Patchy bibasilar opaci ties, which may represent atelectasis or infection in the appropriate clinical setting. Signed by: Dr. Stephon Cortes MD on 10/19/2019 10:28 AM Dict ated By: STEPHON CORTES MD 1028 Transcribed By: DARRON on 10/19/19 1028 COPY TO: PAWEL SALVADOR MD Influenza Virus Types A,B Qugfxjc6303-70-70 09:17:00* Test Item Value Reference Range Interpretation Comments Influenza Virus Types A,B Antigen (test code = 88948-9) NEGATIVE NEGATIVE [facility] CenterDifferential Total Cells Counted 2019-10-19 08:02:00* Test Item Value Reference Range Interpretation Comments Differential Total Cells Counted (test code = Differen tial Total Cells Counted) 100 [facility] CenterNeutrophils % (Manual)2019-10-19 08:02:00 * Test Item Value Reference Range Interpretation Comments Neutrophils % (Manual) (test code = 61262-7) 83 40-74 [facility] CenterLymphocytes % (Manual)2019-10-19 08:02:00 * Test Item Value Reference Range Interpretation Comments Lymphocytes % (Manual) (test code = 737-7) 6 19-48 [facility] CenterMonocytes % (Manual)2019-10-19 08:02:00* Test Item Value Reference Range Interpretation Comments Monocytes % (Manual) (test code = 744-3) 6 3.4-9.0 [facility] CenterEosinophils % (Manual)2019-10-19 08:02:00 * Test Item Value Reference Range Interpretation Comments Eosinophils % (Manual) (test code = 714-6) 3 0-7 [facility] CenterBasophils % (Manual)2019-10-19 08:02:00* Test Item Value Reference Range Interpretation Comments Basophils % (Manual) (test code = 87797-7) 1 0-1.5 [facility] CenterMyelocytes %2019-10-19 08:02:00* Test Item Value Reference Range Interpretation Comments Myelocytes % (test code = 749-2) 1 0-0 [facility] CenterPlatelet [id number] 08:02:00* Test Item Value Reference Range Interpretation Comments Platelet Estimate (test code = 80127-2) MODERATELY DECREASED [facility] CenterAnisocytosis2020-03-21 08:02:00* Test Item Value Reference Range Interpretation Comments Anisocytosis (test code = 702-1) MODE [facility] CenterMacrocytosis2020-03-21 08:02:00* Test Item Value Reference Range Interpretation Comments Macrocytosis (test code = 738-5) SLIGHT [facility] CenterRed Cell Morphology [id number] 08:02:00* Test Item Value Reference Range Interpretation Comments Red Cell Morphology Comment (test code = 6742-1) ABNORMAL [facility] CenterProthrombin [id number] 06:23:00* Test Item Value Reference Range Interpretation Comments Prothrombin Time (test code = 5902-2) 13.8 11.9-14.5 [facility] CenterProthromb Time International Ratio 2019-10-19 06:23:00* Test Item Value Reference Range Interpretation Comments Prothromb Time International Ratio (test code = 6301-6) 1.00 Oral Anticoagulant Therapy INR Values:1. Low Intensity Therapy 1.5 - 2.02 . Moderate Intensity Therapy 2.0 - 3.03. High Intensity Therapy(1) 2.5 - 3. 54. High Intensity Therapy(2) 3.0 - 4.05. Panic Value INR > 5.0 [facility] CenterCHEST SINGLE (PORTABLE)2019-10-19 06:04:00 [place] [address] Patient Name: VIOLETTE LAMB MR #: [id number] : 1965 Age/Sex: 54/M Req #: [id number] Adm Physician: PAWEL SALVADOR MD Ordered by: PAWEL SALVADOR MD Report #: [id number] Location: MED/SURG Room/Bed: [facility] Procedure: [id number] DX/CHEST SINGLE (PORTABLE) Exam Date: 10/19/19 Exam Time: 0530 REPORT STATUS: Sig nicole EXAMINATION: Chest AP portable INDICATION: Pulmonary edema. CO MPARISON: 10/18/19 FINDINGS: TUBES and LINES: Tiny old right IJ milton lysis catheter is unchanged in position. LUNGS: There is mild prominence o f the central pulmonary vasculature, consistent with pulmonary venous congesti on. Bibasilar subsegmental atelectasis. PLEURA: No pleural effusion or p neumothorax. HEART AND MEDIASTINUM: Cardiac size is mildly enlarged. BONES AND SOFT TISSUES: No acute osseous lesion. Median sternotomy wires. UPPER ABDOMEN: No free air under the diaphragm. Metallic wire projected on the superior left hemithorax, likely outside the patient. IMPRESSION: Bilateral pulmonary venous congestion, unchanged. Signed by: Dr. Ricki Villanueva M.D. on 10/19/2019 6:10 AM Dictated By: MYRA VILLANUEVA MD, MD 9 Transc ribed By: DARRON on 10/19/19 0610 COPY TO: PAWEL SALVADOR MD Indirect [id number] 03:39:00* Test Item Value Reference Range Interpretation Comments Indirect Bilirubin (test code = 1971-1) 2.9 0.3-1.2 [facility] CenterFerritin2020-03-20 23:10:00* Test Item Value Reference Range Interpretation Comments Ferritin (test code = 2276-4) > 2000.00 21.81-274.66 [facility] CenterVitamin B12 [id number] 23:09:00* Test Item Value Reference Range Interpretation Comments Vitamin B12 Level (test code = 25635-2) 401 213-816 [facility] CenterFolate2020-03-20 23:09:00* Test Item Value Reference Range Interpretation Comments Folate (test code = 2284-8) 9.5 7.0-15.4 [facility] CenterPercent Reticulocyte [id number] 22:26:00* Test Item Value Reference Range Interpretation Comments Percent Reticulocyte Count (test code = 01763-7) 5.5 0.8-[address] CenterIron [id number] 22:25:00* Test Item Value Reference Range Interpretation Comments Iron Level (test code = 2498-4) 47 65-175 [facility] CenterTotal Iron Binding [id number] 22:25:00* Test Item Value Reference Range Interpretation Comments Total Iron Binding Capacity (test code = 2500-7) 223 261-[address] [facility] CenterPercent Iron [id number] 22:25:00* Test Item Value Reference Range Interpretation Comments Percent Iron Saturation (test code = 2502-3) 21 15-50 [facility] CenterTransferrin2020-03-20 22:25:00* Test Item Value Reference Range Interpretation Comments Transferrin (test code = 3034-6) 159 174-364 [facility] CenterCHEST SINGLE (PORTABLE)2019-10-18 21:01:00 [facility] [address] [place] [address] Patient Name: VIOLETTE LAMB MR #: [id number] : 1965 Age/Sex: 54/M Req #: [id number] Adm Physician: PAWEL SALVADOR MD Ordered by: PAWEL SALVADOR MD Report #: [id number] Location: MED/SURG Room/Bed: [facility] Procedure: [id number] DX/CHEST SINGLE (PORTABLE) Exam Date: 10/18/19 Exam Time: 2034 REPORT STATUS: Sig nicole EXAM: CHEST SINGLE (PORTABLE) DATE: 10/18/2019 7:48 PM INDICA TION: FEVER [id number] COMPARISON: Chest x-ray, 2018 FINDINGS: Lines and tubes: Stable appearance of tunneled right IJ dialysis catheter. Wire sternotomy sutures are again noted. There is mild enlargement of the cardiac silhouette, stable from last exam. There is mild central pulmonary vascular prominence which appears increased. No peripheral consolidation or large pleural effusion. No pneumothorax. Upper abdomen u nremarkable. No acute bony abnormality. IMPRESSION: Cardiomegaly with jennifer tral pulmonary vascular prominence appears increased since last exam. Likely i nterstitial edema asymmetrically prominent in the right lung. Signed by: Dr. Conrad Zapata M.D. on 10/18/2019 9:03 PM Dictated By: CONRAD ZAPATA MD 02 Transcribed By: DARRON on 10/18/192102 COPY TO: PAWEL SALVADOR MD Creatine [id number] 14:56:00* Test Item Value Reference Range Interpretation Comments Creatine Kinase (test code = 2157-6) 38 30-200 [facility] CenterCreatine Kinase [id number] 14:56:00* Test Item Value Reference Range Interpretation Comments Creatine Kinase MB (test code = 95985-5) 1.20 0-5.0 [facility] CenterTroponin [id number] 14:56:00* Test Item Value Reference Range Interpretation Comments Troponin I (test code = OWP0522) 0.059 0-0.300 [facility] CenterActivated Partial Thromboplast Time 2019-10-18 13:15:00* Test Item Value Reference Range Interpretation Comments Activated Partial Thromboplast Time (test code = 98063-4) 30.1 23.8-35.5 [facility] CenterGLUBED2020-03-14 20:09:00* Test Item Value Reference Range Interpretation Comments GLUBED (test code = GLUBED) 118 mg/dL 74-106 H Performed by certified rubber roller grinder operator at [facility] ANTINUCLEAR ANTIBODIES [id number] 18:07:00* Test Item Value Reference Range Interpretation Comments BRIDGETT SCREEN (test code = ANASCR) Negative Negative Performed At: [facility] [id number] Kyle L MD Ph:[phone] REFAB [id number] 18:07:00* Test Item Value Reference Range Interpretation Comments AB MITOCHONDRIAL (test code = MITOCHAB) <20.0 Units 0.0-20.0 Negative 0.0 - 20.0 Equivocal 20.1 - 24.9 Positive >24.9Mitochondrial (M2) Antibodies are found in 90-96% ofpatients with primary biliary cirrhosis.Performed At: [address] [id number] Lou MD Ph:[phone] [id number] 11:29:00* Test Item Value Reference Range Interpretation Comments GLUBED (test code = GLUBED) 133 mg/dL 74-106 H Performed by certified rubber roller grinder operator at [facility] [id number] 11:02:00* Test Item Value Reference Range Interpretation Comments GLUBED (test code = GLUBED) 146 mg/dL 74-106 H Performed by certified rubber roller grinder operator at [facility] AB HIV 1 09:51:00* Test Item Value Reference Range Interpretation Comments AB HIV 1 2 (test code = WLH28RX) Nonreactive NonReactive It is recognized that currently available assays for thedetection of antibodies to HIV-1 and/or HIV-2 may notdetect all infected individuals. A negative test result doesnot exclude the possibility of exposure to or infection withHIV. HIV antibodies may be undetectable in some stages ofthe infection and in some clinical conditions. AB HEPATITIS B [id number] 07:12:00* Test Item Value Reference Range Interpretation Comments AB HEPATITIS B SURFACE (test code = HBSAB) Reactive () Non Reactive: Inconsistent with immunity, less than 10 mIU/mL Reactive: Consistent with immunity, greater than 9.9 mIU/mLPerformed At: [facility] [id number] Palencia MD Ph:[phone] HEPATITIS B CORE ANTIBODY,[id number] 07:12:00* Test Item Value Reference Range Interpretation Comments HEPATITIS B CORE ANTIBODY,TOT (test code = HBCAB) Negative Nega tive Performed At: [facility] [id number] Roe Palencia MD Ph:[phone] [id number] 05:31:00* Test Item Value Reference Range Interpretation Comments HEMOGLOBIN (test code = HGB) 8.0 gram/dL 13.0-17.5 L [id number] 20:08:00* Test Item Value Reference Range Interpretation Comments GLUBED (test code = GLUBED) 135 mg/dL 74-106 H Performed by certified rubber roller grinder operator at [facility] [id number] 17:42:00* Test Item Value Reference Range Interpretation Comments GLUBED (test code = GLUBED) 237 mg/dL 74-106 H Performed by certified rubber roller grinder operator at [facility] BASIC METABOLIC [id number] 13:54:00* Test Item Value Reference Range Interpretation Comments SODIUM (test code = NA) 134 mmol/L 136-145 L POTASSIUM (test code = K) 4.3 mmol/L 3.5-5.1 N CHLORIDE (test code = CL) 101.0 mmol/L 98-107 N CARBON DIOXIDE (test code = CO2) 27.0 mmol/L 21-32 N ANION GAP (test code = GAP) 10.3 10-20 N GLUCOSE (test code = GLU) 147 mg/dL 74-106 H BLOOD UREA NITROGEN (test code = BUN) 66 mg/dL 7-18 H GLOMERULAR FILTRATION RATE (test code = GFR) 12 mL/min >=60 Estimated GFR by using Modified MDRD formula.Chronic kidney disease is defined as either kidney damageor GFR <60 mL/min/1.73 m2 for >3 months. CREATININE (test code = CREAT) 5.10 mg/dL 0.7-1.3 H BUN/CREATININE RATIO (test code = BUN/CREA) 12.9 10-20 N CALCIUM (test code = CA) 8.7 mg/dL 8.5-10.1 N BASIC METABOLIC [id number] 13:49:00* Test Item Value Reference Range Interpretation Comments SODIUM (test code = NA) 134 mmol/L 136-145 L POTASSIUM (test code = K) 4.3 mmol/L 3.5-5.1 N CHLORIDE (test code = CL) 101.0 mmol/L 98-107 N CARBON DIOXIDE (test code = CO2) mmol/L 21-32 ANION GAP (test code = GAP) 10-20 GLUCOSE (test code = GLU) mg/dL 74-106 BLOOD UREA NITROGEN (test code = BUN) mg/dL 7-18 GLOMERULAR FILTRATION RATE (test code = GFR) mL/min >=60 CREATININE (test code = CREAT) mg/dL 0.7-1.3 BUN/CREATININE RATIO (test code = BUN/CREA) 10-20 CALCIUM (test code = CA) mg/dL 8.5-10.1 CBC W/AUTO [id number] 12:42:00* Test Item Value Reference Range Interpretation Comments WHITE BLOOD CELL (test code = WBC) 5.5 K/mm3 4.5-12.5 N RED BLOOD CELL (test code = RBC) 2.55 mill/mm3 4.0-5.8 L HEMOGLOBIN (test code = HGB) 8.0 gram/dL 13.0-17.5 L HEMATOCRIT (test code = HCT) 23.8 % 42.0-52.0 L MEAN CELL VOLUME (test code = MCV) 93.3 fL 80-98 N MEAN CELL HGB (test code = MCH) 31.4 picogram 27.0-33.0 N MEAN CELL HGB CONCETRATION (test code = MCHC) 33.6 gram/dL 33.0-36. 0 N RED CELL DISTRIBUTION WIDTH (test code = RDW) 21.2 % 11.6-16. 2 H RED CELL DISTRIBUTION WIDTH SD (test code = RDW-SD) 71.8 fL 37 .0-51.0 H PLATELET COUNT (test code = PLT) 101 K/mm3 150-450 L MEAN PLATELET VOLUME (test code = MPV) 12.1 fL 6.7-11.0 H NEUTROPHIL % (test code = NT%) 78.1 % 39.0-69.0 H IMMATURE GRANULOCYTE % (test code = IG%) 0.5 % 0.0-5.0 N LYMPHOCYTE % (test code = LY%) 6.7 % 25.0-55.0 L MONOCYTE % (test code = MO%) 10.4 % 0.0-10.0 H EOSINOPHIL % (test code = EO%) 3.6 % 0.0-5.0 N BASOPHIL % (test code = BA%) 0.7 % 0.0-1.0 N NUCLEATED RBC % (test code = NRBC%) 0.0 % 0-0 N NEUTROPHIL # (test code = NT#) 4.29 K/mm3 1.8-7.7 N IMMATURE GRANULOCYTE # (test code = IG#) 0.03 x10 3/uL 0-0.03 N LYMPHOCYTE # (test code = LY#) 0.37 K/mm3 1.0-5.0 L MONOCYTE # (test code = MO#) 0.57 K/mm3 0-0.8 N EOSINOPHIL # (test code = EO#) 0.20 K/mm3 0.0-0.5 N BASOPHIL # (test code = BA#) 0.04 K/mm3 0.0-0.2 N NUCLEATED RBC # (test code = NRBC#) 0.00 K/mm3 0.0-0.1 N MANUAL DIFF REQUIRED (test code = MDIFF) NO, ONLY SCAN NEEDED DIFFERENTIAL [id number] 12:42:00* Test Item Value Reference Range Interpretation Comments STAIN ACCEPTABILITY (test code = STN ACCEPTABLE) STAIN ACCEPTABLE POLYCHROMASIA (test code = POLC) 1+ ANISOCYTOSIS (test code = ANISO) 3+ MACROCYTOSIS (test code = MACR) 3+ PLATELET ESTIMATE (test code = PLTEST) SLIGHTLY DECREASED PLATELET MORPHOLOGY (test code = PLTMORPH) NORMAL [id number] 12:13:00* Test Item Value Reference Range Interpretation Comments GLUBED (test code = GLUBED) 142 mg/dL 74-106 H Performed by certified rubber roller grinder operator at [facility] CBC W/AUTO [id number] 11:55:00* Test Item Value Reference Range Interpretation Comments WHITE BLOOD CELL (test code = WBC) 5.5 K/mm3 4.5-12.5 N RED BLOOD CELL (test code = RBC) 2.55 mill/mm3 4.0-5.8 L HEMOGLOBIN (test code = HGB) 8.0 gram/dL 13.0-17.5 L HEMATOCRIT (test code = HCT) 23.8 % 42.0-52.0 L MEAN CELL VOLUME (test code = MCV) 93.3 fL 80-98 N MEAN CELL HGB (test code = MCH) 31.4 picogram 27.0-33.0 N MEAN CELL HGB CONCETRATION (test code = MCHC) 33.6 gram/dL 33.0-36. 0 N RED CELL DISTRIBUTION WIDTH (test code = RDW) 21.2 % 11.6-16. 2 H RED CELL DISTRIBUTION WIDTH SD (test code = RDW-SD) 71.8 fL 37 .0-51.0 H PLATELET COUNT (test code = PLT) 101 K/mm3 150-450 L MEAN PLATELET VOLUME (test code = MPV) 12.1 fL 6.7-11.0 H NEUTROPHIL % (test code = NT%) 78.1 % 39.0-69.0 H IMMATURE GRANULOCYTE % (test code = IG%) 0.5 % 0.0-5.0 N LYMPHOCYTE % (test code = LY%) 6.7 % 25.0-55.0 L MONOCYTE % (test code = MO%) 10.4 % 0.0-10.0 H EOSINOPHIL % (test code = EO%) 3.6 % 0.0-5.0 N BASOPHIL % (test code = BA%) 0.7 % 0.0-1.0 N NUCLEATED RBC % (test code = NRBC%) 0.0 % 0-0 N NEUTROPHIL # (test code = NT#) 4.29 K/mm3 1.8-7.7 N IMMATURE GRANULOCYTE # (test code = IG#) 0.03 x10 3/uL 0-0.03 N LYMPHOCYTE # (test code = LY#) 0.37 K/mm3 1.0-5.0 L MONOCYTE # (test code = MO#) 0.57 K/mm3 0-0.8 N EOSINOPHIL # (test code = EO#) 0.20 K/mm3 0.0-0.5 N BASOPHIL # (test code = BA#) 0.04 K/mm3 0.0-0.2 N NUCLEATED RBC # (test code = NRBC#) 0.00 K/mm3 0.0-0.1 N MANUAL DIFF REQUIRED (test code = MDIFF) NO, ONLY SCAN NEEDED DIFFERENTIAL [id number] 11:55:00* Test Item Value Reference Range Interpretation Comments STAIN ACCEPTABILITY (test code = STN ACCEPTABLE) CABOT RINGS (test code = CAB) MORPHOLOGY COMMENT (test code = MOC) PLATELET ESTIMATE (test code = PLTEST) PLATELET MORPHOLOGY (test code = PLTMORPH) CBC W/AUTO [id number] 11:55:00* Test Item Value Reference Range Interpretation Comments WHITE BLOOD CELL (test code = WBC) 5.5 K/mm3 4.5-12.5 N RED BLOOD CELL (test code = RBC) 2.55 mill/mm3 4.0-5.8 L HEMOGLOBIN (test code = HGB) 8.0 gram/dL 13.0-17.5 L HEMATOCRIT (test code = HCT) 23.8 % 42.0-52.0 L MEAN CELL VOLUME (test code = MCV) 93.3 fL 80-98 N MEAN CELL HGB (test code = MCH) 31.4 picogram 27.0-33.0 N MEAN CELL HGB CONCETRATION (test code = MCHC) 33.6 gram/dL 33.0-36. 0 N RED CELL DISTRIBUTION WIDTH (test code = RDW) 21.2 % 11.6-16. 2 H RED CELL DISTRIBUTION WIDTH SD (test code = RDW-SD) 71.8 fL 37 .0-51.0 H PLATELET COUNT (test code = PLT) 101 K/mm3 150-450 L MEAN PLATELET VOLUME (test code = MPV) 12.1 fL 6.7-11.0 H NEUTROPHIL % (test code = NT%) 78.1 % 39.0-69.0 H IMMATURE GRANULOCYTE % (test code = IG%) 0.5 % 0.0-5.0 N LYMPHOCYTE % (test code = LY%) 6.7 % 25.0-55.0 L MONOCYTE % (test code = MO%) 10.4 % 0.0-10.0 H EOSINOPHIL % (test code = EO%) 3.6 % 0.0-5.0 N BASOPHIL % (test code = BA%) 0.7 % 0.0-1.0 N NUCLEATED RBC % (test code = NRBC%) 0.0 % 0-0 N NEUTROPHIL # (test code = NT#) 4.29 K/mm3 1.8-7.7 N IMMATURE GRANULOCYTE # (test code = IG#) 0.03 x10 3/uL 0-0.03 N LYMPHOCYTE # (test code = LY#) 0.37 K/mm3 1.0-5.0 L MONOCYTE # (test code = MO#) 0.57 K/mm3 0-0.8 N EOSINOPHIL # (test code = EO#) 0.20 K/mm3 0.0-0.5 N BASOPHIL # (test code = BA#) 0.04 K/mm3 0.0-0.2 N NUCLEATED RBC # (test code = NRBC#) 0.00 K/mm3 0.0-0.1 N MANUAL DIFF REQUIRED (test code = MDIFF) NO, ONLY SCAN NEEDED DIFFERENTIAL [id number] 11:55:00* Test Item Value Reference Range Interpretation Comments STAIN ACCEPTABILITY (test code = STN ACCEPTABLE) CABOT RINGS (test code = CAB) MORPHOLOGY COMMENT (test code = MOC) PLATELET ESTIMATE (test code = PLTEST) PLATELET MORPHOLOGY (test code = PLTMORPH) CBC W/AUTO [id number] 11:55:00* Test Item Value Reference Range Interpretation Comments WHITE BLOOD CELL (test code = WBC) 5.5 K/mm3 4.5-12.5 N RED BLOOD CELL (test code = RBC) 2.55 mill/mm3 4.0-5.8 L HEMOGLOBIN (test code = HGB) 8.0 gram/dL 13.0-17.5 L HEMATOCRIT (test code = HCT) 23.8 % 42.0-52.0 L MEAN CELL VOLUME (test code = MCV) 93.3 fL 80-98 N MEAN CELL HGB (test code = MCH) 31.4 picogram 27.0-33.0 N MEAN CELL HGB CONCETRATION (test code = MCHC) 33.6 gram/dL 33.0-36. 0 N RED CELL DISTRIBUTION WIDTH (test code = RDW) 21.2 % 11.6-16. 2 H RED CELL DISTRIBUTION WIDTH SD (test code = RDW-SD) 71.8 fL 37 .0-51.0 H PLATELET COUNT (test code = PLT) 101 K/mm3 150-450 L MEAN PLATELET VOLUME (test code = MPV) 12.1 fL 6.7-11.0 H NEUTROPHIL % (test code = NT%) 78.1 % 39.0-69.0 H IMMATURE GRANULOCYTE % (test code = IG%) 0.5 % 0.0-5.0 N LYMPHOCYTE % (test code = LY%) 6.7 % 25.0-55.0 L MONOCYTE % (test code = MO%) 10.4 % 0.0-10.0 H EOSINOPHIL % (test code = EO%) 3.6 % 0.0-5.0 N BASOPHIL % (test code = BA%) 0.7 % 0.0-1.0 N NUCLEATED RBC % (test code = NRBC%) 0.0 % 0-0 N NEUTROPHIL # (test code = NT#) 4.29 K/mm3 1.8-7.7 N IMMATURE GRANULOCYTE # (test code = IG#) 0.03 x10 3/uL 0-0.03 N LYMPHOCYTE # (test code = LY#) 0.37 K/mm3 1.0-5.0 L MONOCYTE # (test code = MO#) 0.57 K/mm3 0-0.8 N EOSINOPHIL # (test code = EO#) 0.20 K/mm3 0.0-0.5 N BASOPHIL # (test code = BA#) 0.04 K/mm3 0.0-0.2 N NUCLEATED RBC # (test code = NRBC#) 0.00 K/mm3 0.0-0.1 N MANUAL DIFF REQUIRED (test code = MDIFF) NO, ONLY SCAN NEEDED DIFFERENTIAL [id number] 11:55:00* Test Item Value Reference Range Interpretation Comments STAIN ACCEPTABILITY (test code = STN ACCEPTABLE) MORPHOLOGY COMMENT (test code = MOC) PLATELET ESTIMATE (test code = PLTEST) PLATELET MORPHOLOGY (test code = PLTMORPH) CBC W/AUTO [id number] 11:55:00* Test Item Value Reference Range Interpretation Comments WHITE BLOOD CELL (test code = WBC) 5.5 K/mm3 4.5-12.5 N RED BLOOD CELL (test code = RBC) 2.55 mill/mm3 4.0-5.8 L HEMOGLOBIN (test code = HGB) 8.0 gram/dL 13.0-17.5 L HEMATOCRIT (test code = HCT) 23.8 % 42.0-52.0 L MEAN CELL VOLUME (test code = MCV) 93.3 fL 80-98 N MEAN CELL HGB (test code = MCH) 31.4 picogram 27.0-33.0 N MEAN CELL HGB CONCETRATION (test code = MCHC) 33.6 gram/dL 33.0-36. 0 N RED CELL DISTRIBUTION WIDTH (test code = RDW) 21.2 % 11.6-16. 2 H RED CELL DISTRIBUTION WIDTH SD (test code = RDW-SD) 71.8 fL 37 .0-51.0 H PLATELET COUNT (test code = PLT) 101 K/mm3 150-450 L MEAN PLATELET VOLUME (test code = MPV) 12.1 fL 6.7-11.0 H NEUTROPHIL % (test code = NT%) 78.1 % 39.0-69.0 H IMMATURE GRANULOCYTE % (test code = IG%) 0.5 % 0.0-5.0 N LYMPHOCYTE % (test code = LY%) 6.7 % 25.0-55.0 L MONOCYTE % (test code = MO%) 10.4 % 0.0-10.0 H EOSINOPHIL % (test code = EO%) 3.6 % 0.0-5.0 N BASOPHIL % (test code = BA%) 0.7 % 0.0-1.0 N NUCLEATED RBC % (test code = NRBC%) 0.0 % 0-0 N NEUTROPHIL # (test code = NT#) 4.29 K/mm3 1.8-7.7 N IMMATURE GRANULOCYTE # (test code = IG#) 0.03 x10 3/uL 0-0.03 N LYMPHOCYTE # (test code = LY#) 0.37 K/mm3 1.0-5.0 L MONOCYTE # (test code = MO#) 0.57 K/mm3 0-0.8 N EOSINOPHIL # (test code = EO#) 0.20 K/mm3 0.0-0.5 N BASOPHIL # (test code = BA#) 0.04 K/mm3 0.0-0.2 N NUCLEATED RBC # (test code = NRBC#) 0.00 K/mm3 0.0-0.1 N MANUAL DIFF REQUIRED (test code = MDIFF) NO, ONLY SCAN NEEDED DIFFERENTIAL [id number] 11:55:00* Test Item Value Reference Range Interpretation Comments STAIN ACCEPTABILITY (test code = STN ACCEPTABLE) CABOT RINGS (test code = CAB) MORPHOLOGY COMMENT (test code = MOC) PLATELET ESTIMATE (test code = PLTEST) PLATELET MORPHOLOGY (test code = PLTMORPH) CBC W/AUTO [id number] 07:58:00* Test Item Value Reference Range Interpretation Comments WHITE BLOOD CELL (test code = WBC) 5.2 K/mm3 4.5-12.5 N RED BLOOD CELL (test code = RBC) 2.63 mill/mm3 4.0-5.8 L HEMOGLOBIN (test code = HGB) 8.3 gram/dL 13.0-17.5 L HEMATOCRIT (test code = HCT) 24.5 % 42.0-52.0 L MEAN CELL VOLUME (test code = MCV) 93.2 fL 80-98 N MEAN CELL HGB (test code = MCH) 31.6 picogram 27.0-33.0 N MEAN CELL HGB CONCETRATION (test code = MCHC) 33.9 gram/dL 33.0-36. 0 N RED CELL DISTRIBUTION WIDTH (test code = RDW) 21.1 % 11.6-16. 2 H RED CELL DISTRIBUTION WIDTH SD (test code = RDW-SD) 71.3 fL 37 .0-51.0 H PLATELET COUNT (test code = PLT) 104 K/mm3 150-450 L MEAN PLATELET VOLUME (test code = MPV) 12.6 fL 6.7-11.0 H NEUTROPHIL % (test code = NT%) 74.7 % 39.0-69.0 H IMMATURE GRANULOCYTE % (test code = IG%) 0.6 % 0.0-5.0 N LYMPHOCYTE % (test code = LY%) 8.8 % 25.0-55.0 L MONOCYTE % (test code = MO%) 11.1 % 0.0-10.0 H EOSINOPHIL % (test code = EO%) 4.0 % 0.0-5.0 N BASOPHIL % (test code = BA%) 0.8 % 0.0-1.0 N NUCLEATED RBC % (test code = NRBC%) 0.0 % 0-0 N NEUTROPHIL # (test code = NT#) 3.92 K/mm3 1.8-7.7 N IMMATURE GRANULOCYTE # (test code = IG#) 0.03 x10 3/uL 0-0.03 N LYMPHOCYTE # (test code = LY#) 0.46 K/mm3 1.0-5.0 L MONOCYTE # (test code = MO#) 0.58 K/mm3 0-0.8 N EOSINOPHIL # (test code = EO#) 0.21 K/mm3 0.0-0.5 N BASOPHIL # (test code = BA#) 0.04 K/mm3 0.0-0.2 N NUCLEATED RBC # (test code = NRBC#) 0.00 K/mm3 0.0-0.1 N MANUAL DIFF REQUIRED (test code = MDIFF) NO, ONLY SCAN NEEDED DIFFERENTIAL [id number] 07:58:00* Test Item Value Reference Range Interpretation Comments STAIN ACCEPTABILITY (test code = STN ACCEPTABLE) STAIN ACCEPTABLE POLYCHROMASIA (test code = POLC) 1+ ANISOCYTOSIS (test code = ANISO) 3+ MACROCYTOSIS (test code = MACR) 3+ PLATELET ESTIMATE (test code = PLTEST) SLIGHTLY DECREASED PLATELET MORPHOLOGY (test code = PLTMORPH) NORMAL CBC W/AUTO [id number] 07:44:00* Test Item Value Reference Range Interpretation Comments WHITE BLOOD CELL (test code = WBC) 5.2 K/mm3 4.5-12.5 N RED BLOOD CELL (test code = RBC) 2.63 mill/mm3 4.0-5.8 L HEMOGLOBIN (test code = HGB) 8.3 gram/dL 13.0-17.5 L HEMATOCRIT (test code = HCT) 24.5 % 42.0-52.0 L MEAN CELL VOLUME (test code = MCV) 93.2 fL 80-98 N MEAN CELL HGB (test code = MCH) 31.6 picogram 27.0-33.0 N MEAN CELL HGB CONCETRATION (test code = MCHC) 33.9 gram/dL 33.0-36. 0 N RED CELL DISTRIBUTION WIDTH (test code = RDW) 21.1 % 11.6-16. 2 H RED CELL DISTRIBUTION WIDTH SD (test code = RDW-SD) 71.3 fL 37 .0-51.0 H PLATELET COUNT (test code = PLT) 104 K/mm3 150-450 L MEAN PLATELET VOLUME (test code = MPV) 12.6 fL 6.7-11.0 H NEUTROPHIL % (test code = NT%) 74.7 % 39.0-69.0 H IMMATURE GRANULOCYTE % (test code = IG%) 0.6 % 0.0-5.0 N LYMPHOCYTE % (test code = LY%) 8.8 % 25.0-55.0 L MONOCYTE % (test code = MO%) 11.1 % 0.0-10.0 H EOSINOPHIL % (test code = EO%) 4.0 % 0.0-5.0 N BASOPHIL % (test code = BA%) 0.8 % 0.0-1.0 N NUCLEATED RBC % (test code = NRBC%) 0.0 % 0-0 N NEUTROPHIL # (test code = NT#) 3.92 K/mm3 1.8-7.7 N IMMATURE GRANULOCYTE # (test code = IG#) 0.03 x10 3/uL 0-0.03 N LYMPHOCYTE # (test code = LY#) 0.46 K/mm3 1.0-5.0 L MONOCYTE # (test code = MO#) 0.58 K/mm3 0-0.8 N EOSINOPHIL # (test code = EO#) 0.21 K/mm3 0.0-0.5 N BASOPHIL # (test code = BA#) 0.04 K/mm3 0.0-0.2 N NUCLEATED RBC # (test code = NRBC#) 0.00 K/mm3 0.0-0.1 N MANUAL DIFF REQUIRED (test code = MDIFF) NO, ONLY SCAN NEEDED DIFFERENTIAL [id number] 07:44:00* Test Item Value Reference Range Interpretation Comments STAIN ACCEPTABILITY (test code = STN ACCEPTABLE) CABOT RINGS (test code = CAB) MORPHOLOGY COMMENT (test code = MOC) PLATELET ESTIMATE (test code = PLTEST) PLATELET MORPHOLOGY (test code = PLTMORPH) CBC W/AUTO [id number] 07:44:00* Test Item Value Reference Range Interpretation Comments WHITE BLOOD CELL (test code = WBC) 5.2 K/mm3 4.5-12.5 N RED BLOOD CELL (test code = RBC) 2.63 mill/mm3 4.0-5.8 L HEMOGLOBIN (test code = HGB) 8.3 gram/dL 13.0-17.5 L HEMATOCRIT (test code = HCT) 24.5 % 42.0-52.0 L MEAN CELL VOLUME (test code = MCV) 93.2 fL 80-98 N MEAN CELL HGB (test code = MCH) 31.6 picogram 27.0-33.0 N MEAN CELL HGB CONCETRATION (test code = MCHC) 33.9 gram/dL 33.0-36. 0 N RED CELL DISTRIBUTION WIDTH (test code = RDW) 21.1 % 11.6-16. 2 H RED CELL DISTRIBUTION WIDTH SD (test code = RDW-SD) 71.3 fL 37 .0-51.0 H PLATELET COUNT (test code = PLT) 104 K/mm3 150-450 L MEAN PLATELET VOLUME (test code = MPV) 12.6 fL 6.7-11.0 H NEUTROPHIL % (test code = NT%) 74.7 % 39.0-69.0 H IMMATURE GRANULOCYTE % (test code = IG%) 0.6 % 0.0-5.0 N LYMPHOCYTE % (test code = LY%) 8.8 % 25.0-55.0 L MONOCYTE % (test code = MO%) 11.1 % 0.0-10.0 H EOSINOPHIL % (test code = EO%) 4.0 % 0.0-5.0 N BASOPHIL % (test code = BA%) 0.8 % 0.0-1.0 N NUCLEATED RBC % (test code = NRBC%) 0.0 % 0-0 N NEUTROPHIL # (test code = NT#) 3.92 K/mm3 1.8-7.7 N IMMATURE GRANULOCYTE # (test code = IG#) 0.03 x10 3/uL 0-0.03 N LYMPHOCYTE # (test code = LY#) 0.46 K/mm3 1.0-5.0 L MONOCYTE # (test code = MO#) 0.58 K/mm3 0-0.8 N EOSINOPHIL # (test code = EO#) 0.21 K/mm3 0.0-0.5 N BASOPHIL # (test code = BA#) 0.04 K/mm3 0.0-0.2 N NUCLEATED RBC # (test code = NRBC#) 0.00 K/mm3 0.0-0.1 N MANUAL DIFF REQUIRED (test code = MDIFF) NO, ONLY SCAN NEEDED DIFFERENTIAL [id number] 07:44:00* Test Item Value Reference Range Interpretation Comments STAIN ACCEPTABILITY (test code = STN ACCEPTABLE) CABOT RINGS (test code = CAB) MORPHOLOGY COMMENT (test code = MOC) PLATELET ESTIMATE (test code = PLTEST) PLATELET MORPHOLOGY (test code = PLTMORPH) CBC W/AUTO [id number] 07:44:00* Test Item Value Reference Range Interpretation Comments WHITE BLOOD CELL (test code = WBC) 5.2 K/mm3 4.5-12.5 N RED BLOOD CELL (test code = RBC) 2.63 mill/mm3 4.0-5.8 L HEMOGLOBIN (test code = HGB) 8.3 gram/dL 13.0-17.5 L HEMATOCRIT (test code = HCT) 24.5 % 42.0-52.0 L MEAN CELL VOLUME (test code = MCV) 93.2 fL 80-98 N MEAN CELL HGB (test code = MCH) 31.6 picogram 27.0-33.0 N MEAN CELL HGB CONCETRATION (test code = MCHC) 33.9 gram/dL 33.0-36. 0 N RED CELL DISTRIBUTION WIDTH (test code = RDW) 21.1 % 11.6-16. 2 H RED CELL DISTRIBUTION WIDTH SD (test code = RDW-SD) 71.3 fL 37 .0-51.0 H PLATELET COUNT (test code = PLT) 104 K/mm3 150-450 L MEAN PLATELET VOLUME (test code = MPV) 12.6 fL 6.7-11.0 H NEUTROPHIL % (test code = NT%) 74.7 % 39.0-69.0 H IMMATURE GRANULOCYTE % (test code = IG%) 0.6 % 0.0-5.0 N LYMPHOCYTE % (test code = LY%) 8.8 % 25.0-55.0 L MONOCYTE % (test code = MO%) 11.1 % 0.0-10.0 H EOSINOPHIL % (test code = EO%) 4.0 % 0.0-5.0 N BASOPHIL % (test code = BA%) 0.8 % 0.0-1.0 N NUCLEATED RBC % (test code = NRBC%) 0.0 % 0-0 N NEUTROPHIL # (test code = NT#) 3.92 K/mm3 1.8-7.7 N IMMATURE GRANULOCYTE # (test code = IG#) 0.03 x10 3/uL 0-0.03 N LYMPHOCYTE # (test code = LY#) 0.46 K/mm3 1.0-5.0 L MONOCYTE # (test code = MO#) 0.58 K/mm3 0-0.8 N EOSINOPHIL # (test code = EO#) 0.21 K/mm3 0.0-0.5 N BASOPHIL # (test code = BA#) 0.04 K/mm3 0.0-0.2 N NUCLEATED RBC # (test code = NRBC#) 0.00 K/mm3 0.0-0.1 N MANUAL DIFF REQUIRED (test code = MDIFF) NO, ONLY SCAN NEEDED DIFFERENTIAL [id number] 07:44:00* Test Item Value Reference Range Interpretation Comments STAIN ACCEPTABILITY (test code = STN ACCEPTABLE) MORPHOLOGY COMMENT (test code = MOC) PLATELET ESTIMATE (test code = PLTEST) PLATELET MORPHOLOGY (test code = PLTMORPH) CBC W/AUTO [id number] 07:44:00* Test Item Value Reference Range Interpretation Comments WHITE BLOOD CELL (test code = WBC) 5.2 K/mm3 4.5-12.5 N RED BLOOD CELL (test code = RBC) 2.63 mill/mm3 4.0-5.8 L HEMOGLOBIN (test code = HGB) 8.3 gram/dL 13.0-17.5 L HEMATOCRIT (test code = HCT) 24.5 % 42.0-52.0 L MEAN CELL VOLUME (test code = MCV) 93.2 fL 80-98 N MEAN CELL HGB (test code = MCH) 31.6 picogram 27.0-33.0 N MEAN CELL HGB CONCETRATION (test code = MCHC) 33.9 gram/dL 33.0-36. 0 N RED CELL DISTRIBUTION WIDTH (test code = RDW) 21.1 % 11.6-16. 2 H RED CELL DISTRIBUTION WIDTH SD (test code = RDW-SD) 71.3 fL 37 .0-51.0 H PLATELET COUNT (test code = PLT) 104 K/mm3 150-450 L MEAN PLATELET VOLUME (test code = MPV) 12.6 fL 6.7-11.0 H NEUTROPHIL % (test code = NT%) 74.7 % 39.0-69.0 H IMMATURE GRANULOCYTE % (test code = IG%) 0.6 % 0.0-5.0 N LYMPHOCYTE % (test code = LY%) 8.8 % 25.0-55.0 L MONOCYTE % (test code = MO%) 11.1 % 0.0-10.0 H EOSINOPHIL % (test code = EO%) 4.0 % 0.0-5.0 N BASOPHIL % (test code = BA%) 0.8 % 0.0-1.0 N NUCLEATED RBC % (test code = NRBC%) 0.0 % 0-0 N NEUTROPHIL # (test code = NT#) 3.92 K/mm3 1.8-7.7 N IMMATURE GRANULOCYTE # (test code = IG#) 0.03 x10 3/uL 0-0.03 N LYMPHOCYTE # (test code = LY#) 0.46 K/mm3 1.0-5.0 L MONOCYTE # (test code = MO#) 0.58 K/mm3 0-0.8 N EOSINOPHIL # (test code = EO#) 0.21 K/mm3 0.0-0.5 N BASOPHIL # (test code = BA#) 0.04 K/mm3 0.0-0.2 N NUCLEATED RBC # (test code = NRBC#) 0.00 K/mm3 0.0-0.1 N MANUAL DIFF REQUIRED (test code = MDIFF) NO, ONLY SCAN NEEDED DIFFERENTIAL [id number] 07:44:00* Test Item Value Reference Range Interpretation Comments STAIN ACCEPTABILITY (test code = STN ACCEPTABLE) CABOT RINGS (test code = CAB) MORPHOLOGY COMMENT (test code = MOC) PLATELET ESTIMATE (test code = PLTEST) PLATELET MORPHOLOGY (test code = PLTMORPH) [id number] 07:34:00* Test Item Value Reference Range Interpretation Comments GLUBED (test code = GLUBED) 204 mg/dL 74-106 H Performed by certified rubber roller grinder operator at [facility] [id number] 20:20:00* Test Item Value Reference Range Interpretation Comments GLUBED (test code = GLUBED) 234 mg/dL 74-106 H Performed by certified rubber roller grinder operator at [facility] PROTHROMBIN [id number] 17:59:00* Test Item Value Reference Range Interpretation Comments PROTHROMBIN TIME PATIENT (test code = PTP) 12.9 seconds 9.0-14.0 N INTERNATIONAL NORMAL RATIO (test code = INR) 1.1 0.8-1.2 N The therapeutic range for oral anticoagulant therapy formost indications is an international normalized ratio (INR)of between 2.0 and 3.0. The recommended therapeutic INRrange for various clinical situations is listed below: Clinical Situation INR range Pulmonary e mbolism treatment (2.0-3.0)Venous thrombosis treatmentVenous thrombosis prophylaxis (high risk surgery)Prevention of systemic embolism from: Acute myocardial infarction Valvular heart disease Atrial fibrillation Mechanical prosthetic heart valves (2.5-3.5) IS PATIENT ON ANTICOAGULANTS? NCBC W/O [id number] 17:49:00* Test Item Value Reference Range Interpretation Comments WHITE BLOOD CELL (test code = WBC) 5.3 K/mm3 4.5-12.5 N RED BLOOD CELL (test code = RBC) 2.67 mill/mm3 4.0-5.8 L HEMOGLOBIN (test code = HGB) 8.4 gram/dL 13.0-17.5 L HEMATOCRIT (test code = HCT) 25.0 % 42.0-52.0 L MEAN CELL VOLUME (test code = MCV) 93.6 fL 80-98 N MEAN CELL HGB (test code = MCH) 31.5 picogram 27.0-33.0 N MEAN CELL HGB CONCETRATION (test code = MCHC) 33.6 gram/dL 33.0-36. 0 N RED CELL DISTRIBUTION WIDTH (test code = RDW) 22.0 % 11.6-16. 2 H PLATELET COUNT (test code = PLT) 100 K/mm3 150-450 L MEAN PLATELET VOLUME (test code = MPV) 12.2 fL 6.7-11.0 H [id number] 17:21:00* Test Item Value Reference Range Interpretation Comments GLUBED (test code = GLUBED) 146 mg/dL 74-106 H Performed by certified rubber roller grinder operator at [facility] [id number] 12:20:00* Test Item Value Reference Range Interpretation Comments GLUBED (test code = GLUBED) 194 mg/dL 74-106 H Performed by certified rubber roller grinder operator at [facility] ANTINUCLEAR ANTIBODIES [id number] 11:09:00* Test Item Value Reference Range Interpretation Comments BRIDGETT SCREEN (test code = ANASCR) Negative Negative Performed At: [address] [id number] Kyle L MD Ph:[phone] REFAB [id number] 11:09:00* Test Item Value Reference Range Interpretation Comments AB MITOCHONDRIAL (test code = MITOCHAB) EIA <1.0 [id number] 08:13:00* Test Item Value Reference Range Interpretation Comments GLUBED (test code = GLUBED) 188 mg/dL 74-106 H Performed by certified rubber roller grinder operator at [facility] ALPHA FETOPROTEIN TUMOR [id number] 08:10:00* Test Item Value Reference Range Interpretation Comments ALPHA FETOPROTEIN TUMOR MARKER (test code = AFPTM) 3.9 ng/mL 0.0 -8.3 [facility] Electrochemiluminescence Immunoassay(ECLIA)Values obtained with different assay methods or kits cannotbe used interchangeably. Results cannot be interpreted asabsolute evidence of the presence or absence of malignantdisease.This test is not interpretable in females.Performed At: [facility] [id number] Palencia MD Ph:[phone] [id number] 08:07:00* Test Item Value Reference Range Interpretation Comments HEMOGLOBIN (test code = HGB) 8.3 gram/dL 13.0-17.5 L [id number] 20:38:00* Test Item Value Reference Range Interpretation Comments GLUBED (test code = GLUBED) 168 mg/dL 74-106 H Performed by certified rubber roller grinder operator at [facility] [id number] 17:29:00* Test Item Value Reference Range Interpretation Comments GLUBED (test code = GLUBED) 192 mg/dL 74-106 H Performed by certified rubber roller grinder operator at [facility] HGB [id number] 16:55:00* Test Item Value Reference Range Interpretation Comments HEMOGLOBIN (test code = HGB) 8.6 gram/dL 13.0-17.5 L RESULT VERIFIED BY REPEAT ANALYSIS HEMATOCRIT (test code = HCT) 25.4 % 42.0-52.0 L [id number] 13:43:00* Test Item Value Reference Range Interpretation Comments GLUBED (test code = GLUBED) 224 mg/dL 74-106 H Performed by certified rubber roller grinder operator at [facility] ACUTE HEPATITIS [id number] 08:10:00* Test Item Value Reference Range Interpretation Comments AB HEPATITIS A IGM (test code = HAVMAB) Negative Negative AG HEPAT B SURF (test code = HBSAG) Negative Negative HEPATITIS B CORE ANTIBODY,IGM (test code = HBCMAB) Negative Neg ative AB HEPATITIS C (test code = HCVAB) <0.1 0.0-0.9 INFCE Result Units: s/co ratio Negative: < 0.8 Indeterminate: 0.8 - 0.9 Positive: > 0.9 The CDC recommends that a positive HCV antibody result be followed up with a HCV Nucleic Acid Amplification test (063214).Performed At: [facility] [address] [place], [place] [id number] Roe Palencia MD Ph:[phone] [id number] 08:02:00* Test Item Value Reference Range Interpretation Comments GLUBED (test code = GLUBED) 197 mg/dL 74-106 H Performed by certified rubber roller grinder operator at [facility] AG HEPAT B [id number] 07:41:00* Test Item Value Reference Range Interpretation Comments AG HEPAT B SURF (test code = HBSAG) Nonreactive Index Nonreactive BASIC METABOLIC [id number] 03:15:00* Test Item Value Reference Range Interpretation Comments SODIUM (test code = NA) 138 mmol/L 136-145 N POTASSIUM (test code = K) 4.1 mmol/L 3.5-5.1 N CHLORIDE (test code = CL) 102.0 mmol/L 98-107 N CARBON DIOXIDE (test code = CO2) 29.0 mmol/L 21-32 N ANION GAP (test code = GAP) 11.1 10-20 N GLUCOSE (test code = GLU) 206 mg/dL 74-106 H BLOOD UREA NITROGEN (test code = BUN) 53 mg/dL 7-18 H RESULT VERIFIED BY REPEAT ANALYSIS GLOMERULAR FILTRATION RATE (test code = GFR) 14 mL/min >=60 Estimated GFR by using Modified MDRD formula.Chronic kidney disease is defined as either kidney damageor GFR <60 mL/min/1.73 m2 for >3 months. CREATININE (test code = CREAT) 4.50 mg/dL 0.7-1.3 H BUN/CREATININE RATIO (test code = BUN/CREA) 11.8 10-20 N CALCIUM (test code = CA) 8.8 mg/dL 8.5-10.1 N HEPATIC FUNCTION [id number] 03:15:00* Test Item Value Reference Range Interpretation Comments TOTAL PROTEIN (test code = PROT) 7.0 gram/dL 6.4-8.2 N ALBUMIN (test code = ALB) 2.7 g/dL 3.4-5.0 L GLOBULIN (test code = GLOB) 4.3 gram/dL 2.7-4.2 H ALBUMIN/GLOBULIN RATIO (test code = A/G) 0.6 0.75-1.50 L BILIRUBIN TOTAL (test code = BILT) 10.30 mg/dL 0.0-1.0 H BILIRUBIN DIRECT (test code = BILD) 8.92 mg/dL 0.0-0.20 H SGOT/AST (test code = AST) 41 IUnit/L 15-37 H SGPT/ALT (test code = ALT) 54 IUnit/L 12-78 N ALKALINE PHOSPHATASE TOTAL (test code = ALKP) 817 IUnit/L 45-117 H Note change in reference range due to change in reagent. CBC W/AUTO [id number] 02:51:00* Test Item Value Reference Range Interpretation Comments WHITE BLOOD CELL (test code = WBC) 5.2 K/mm3 4.5-12.5 N RED BLOOD CELL (test code = RBC) 2.04 mill/mm3 4.0-5.8 L HEMOGLOBIN (test code = HGB) 6.6 gram/dL 13.0-17.5 L HEMATOCRIT (test code = HCT) 19.9 % 42.0-52.0 Results called to [id number] by MORENO 10/09/19 0220Critical results verified and read back by Nurse? YES MEAN CELL VOLUME (test code = MCV) 97.5 fL 80-98 N MEAN CELL HGB (test code = MCH) 32.4 picogram 27.0-33.0 N MEAN CELL HGB CONCETRATION (test code = MCHC) 33.2 gram/dL 33.0-36. 0 N RED CELL DISTRIBUTION WIDTH (test code = RDW) 21.9 % 11.6-16. 2 H RED CELL DISTRIBUTION WIDTH SD (test code = RDW-SD) 77.4 fL 37 .0-51.0 H PLATELET COUNT (test code = PLT) 91 K/mm3 150-450 L MEAN PLATELET VOLUME (test code = MPV) 12.6 fL 6.7-11.0 H NEUTROPHIL % (test code = NT%) 79.1 % 39.0-69.0 H IMMATURE GRANULOCYTE % (test code = IG%) 1.0 % 0.0-5.0 N LYMPHOCYTE % (test code = LY%) 6.6 % 25.0-55.0 L MONOCYTE % (test code = MO%) 10.4 % 0.0-10.0 H EOSINOPHIL % (test code = EO%) 2.3 % 0.0-5.0 N BASOPHIL % (test code = BA%) 0.6 % 0.0-1.0 N NUCLEATED RBC % (test code = NRBC%) 0.0 % 0-0 N NEUTROPHIL # (test code = NT#) 4.10 K/mm3 1.8-7.7 N IMMATURE GRANULOCYTE # (test code = IG#) 0.05 x10 3/uL 0-0.03 H LYMPHOCYTE # (test code = LY#) 0.34 K/mm3 1.0-5.0 L MONOCYTE # (test code = MO#) 0.54 K/mm3 0-0.8 N EOSINOPHIL # (test code = EO#) 0.12 K/mm3 0.0-0.5 N BASOPHIL # (test code = BA#) 0.03 K/mm3 0.0-0.2 N NUCLEATED RBC # (test code = NRBC#) 0.00 K/mm3 0.0-0.1 N MANUAL DIFF REQUIRED (test code = MDIFF) NO, ONLY SCAN NEEDED DIFFERENTIAL [id number] 02:51:00* Test Item Value Reference Range Interpretation Comments STAIN ACCEPTABILITY (test code = STN ACCEPTABLE) STAIN ACCEPTABLE POLYCHROMASIA (test code = POLC) 1+ HYPOCHROMIA (test code = HYPO) 2+ POIKILOCYTOSIS (test code = POIK) 1+ ANISOCYTOSIS (test code = ANISO) 3+ MICROCYTOSIS (test code = MICR) 1+ MACROCYTOSIS (test code = MACR) 2+ TARGET CELLS (test code = TGT) 2+ STOMATOCYTES (test code = STO) 1+ PLATELET ESTIMATE (test code = PLTEST) DECREASED PLATELET MORPHOLOGY (test code = PLTMORPH) NORMAL BASIC METABOLIC [id number] 02:50:00* Test Item Value Reference Range Interpretation Comments SODIUM (test code = NA) 138 mmol/L 136-145 N POTASSIUM (test code = K) 4.1 mmol/L 3.5-5.1 N CHLORIDE (test code = CL) 102.0 mmol/L 98-107 N CARBON DIOXIDE (test code = CO2) mmol/L 21-32 ANION GAP (test code = GAP) 10-20 GLUCOSE (test code = GLU) mg/dL 74-106 BLOOD UREA NITROGEN (test code = BUN) mg/dL 7-18 GLOMERULAR FILTRATION RATE (test code = GFR) mL/min >=60 CREATININE (test code = CREAT) mg/dL 0.7-1.3 BUN/CREATININE RATIO (test code = BUN/CREA) 10-20 CALCIUM (test code = CA) mg/dL 8.5-10.1 HEPATIC FUNCTION [id number] 02:50:00* Test Item Value Reference Range Interpretation Comments TOTAL PROTEIN (test code = PROT) gram/dL 6.4-8.2 ALBUMIN (test code = ALB) g/dL 3.4-5.0 GLOBULIN (test code = GLOB) gram/dL 2.7-4.2 ALBUMIN/GLOBULIN RATIO (test code = A/G) 0.75-1.50 BILIRUBIN TOTAL (test code = BILT) mg/dL 0.0-1.0 BILIRUBIN DIRECT (test code = BILD) mg/dL 0.0-0.20 SGOT/AST (test code = AST) IUnit/L 15-37 SGPT/ALT (test code = ALT) IUnit/L 12-78 ALKALINE PHOSPHATASE TOTAL (test code = ALKP) IUnit/L 45-117 CBC W/AUTO [id number] 02:20:00* Test Item Value Reference Range Interpretation Comments WHITE BLOOD CELL (test code = WBC) 5.2 K/mm3 4.5-12.5 N RED BLOOD CELL (test code = RBC) 2.04 mill/mm3 4.0-5.8 L HEMOGLOBIN (test code = HGB) 6.6 gram/dL 13.0-17.5 L HEMATOCRIT (test code = HCT) 19.9 % 42.0-52.0 LL Results called to [id number] by [email or web address] 10/09/19 0220Critical results verified and read back by Nurse? YES MEAN CELL VOLUME (test code = MCV) 97.5 fL 80-98 N MEAN CELL HGB (test code = MCH) 32.4 picogram 27.0-33.0 N MEAN CELL HGB CONCETRATION (test code = MCHC) 33.2 gram/dL 33.0-36. 0 N RED CELL DISTRIBUTION WIDTH (test code = RDW) 21.9 % 11.6-16. 2 H RED CELL DISTRIBUTION WIDTH SD (test code = RDW-SD) 77.4 fL 37 .0-51.0 H PLATELET COUNT (test code = PLT) 91 K/mm3 150-450 L MEAN PLATELET VOLUME (test code = MPV) 12.6 fL 6.7-11.0 H NEUTROPHIL % (test code = NT%) 79.1 % 39.0-69.0 H IMMATURE GRANULOCYTE % (test code = IG%) 1.0 % 0.0-5.0 N LYMPHOCYTE % (test code = LY%) 6.6 % 25.0-55.0 L MONOCYTE % (test code = MO%) 10.4 % 0.0-10.0 H EOSINOPHIL % (test code = EO%) 2.3 % 0.0-5.0 N BASOPHIL % (test code = BA%) 0.6 % 0.0-1.0 N NUCLEATED RBC % (test code = NRBC%) 0.0 % 0-0 N NEUTROPHIL # (test code = NT#) 4.10 K/mm3 1.8-7.7 N IMMATURE GRANULOCYTE # (test code = IG#) 0.05 x10 3/uL 0-0.03 H LYMPHOCYTE # (test code = LY#) 0.34 K/mm3 1.0-5.0 L MONOCYTE # (test code = MO#) 0.54 K/mm3 0-0.8 N EOSINOPHIL # (test code = EO#) 0.12 K/mm3 0.0-0.5 N BASOPHIL # (test code = BA#) 0.03 K/mm3 0.0-0.2 N NUCLEATED RBC # (test code = NRBC#) 0.00 K/mm3 0.0-0.1 N MANUAL DIFF REQUIRED (test code = MDIFF) NO, ONLY SCAN NEEDED DIFFERENTIAL [id number] 02:20:00* Test Item Value Reference Range Interpretation Comments STAIN ACCEPTABILITY (test code = STN ACCEPTABLE) CABOT RINGS (test code = CAB) MORPHOLOGY COMMENT (test code = MOC) PLATELET ESTIMATE (test code = PLTEST) PLATELET MORPHOLOGY (test code = PLTMORPH) CBC W/AUTO [id number] 02:20:00* Test Item Value Reference Range Interpretation Comments WHITE BLOOD CELL (test code = WBC) 5.2 K/mm3 4.5-12.5 N RED BLOOD CELL (test code = RBC) 2.04 mill/mm3 4.0-5.8 L HEMOGLOBIN (test code = HGB) 6.6 gram/dL 13.0-17.5 L HEMATOCRIT (test code = HCT) 19.9 % 42.0-52.0 LL Results called to [id number] by [email or web address] 10/09/19 0220Critical results verified and read back by Nurse? YES MEAN CELL VOLUME (test code = MCV) 97.5 fL 80-98 N MEAN CELL HGB (test code = MCH) 32.4 picogram 27.0-33.0 N MEAN CELL HGB CONCETRATION (test code = MCHC) 33.2 gram/dL 33.0-36. 0 N RED CELL DISTRIBUTION WIDTH (test code = RDW) 21.9 % 11.6-16. 2 H RED CELL DISTRIBUTION WIDTH SD (test code = RDW-SD) 77.4 fL 37 .0-51.0 H PLATELET COUNT (test code = PLT) 91 K/mm3 150-450 L MEAN PLATELET VOLUME (test code = MPV) 12.6 fL 6.7-11.0 H NEUTROPHIL % (test code = NT%) 79.1 % 39.0-69.0 H IMMATURE GRANULOCYTE % (test code = IG%) 1.0 % 0.0-5.0 N LYMPHOCYTE % (test code = LY%) 6.6 % 25.0-55.0 L MONOCYTE % (test code = MO%) 10.4 % 0.0-10.0 H EOSINOPHIL % (test code = EO%) 2.3 % 0.0-5.0 N BASOPHIL % (test code = BA%) 0.6 % 0.0-1.0 N NUCLEATED RBC % (test code = NRBC%) 0.0 % 0-0 N NEUTROPHIL # (test code = NT#) 4.10 K/mm3 1.8-7.7 N IMMATURE GRANULOCYTE # (test code = IG#) 0.05 x10 3/uL 0-0.03 H LYMPHOCYTE # (test code = LY#) 0.34 K/mm3 1.0-5.0 L MONOCYTE # (test code = MO#) 0.54 K/mm3 0-0.8 N EOSINOPHIL # (test code = EO#) 0.12 K/mm3 0.0-0.5 N BASOPHIL # (test code = BA#) 0.03 K/mm3 0.0-0.2 N NUCLEATED RBC # (test code = NRBC#) 0.00 K/mm3 0.0-0.1 N MANUAL DIFF REQUIRED (test code = MDIFF) NO, ONLY SCAN NEEDED DIFFERENTIAL [id number] 02:20:00* Test Item Value Reference Range Interpretation Comments STAIN ACCEPTABILITY (test code = STN ACCEPTABLE) CABOT RINGS (test code = CAB) MORPHOLOGY COMMENT (test code = MOC) PLATELET ESTIMATE (test code = PLTEST) PLATELET MORPHOLOGY (test code = PLTMORPH) CBC W/AUTO [id number] 02:20:00* Test Item Value Reference Range Interpretation Comments WHITE BLOOD CELL (test code = WBC) 5.2 K/mm3 4.5-12.5 N RED BLOOD CELL (test code = RBC) 2.04 mill/mm3 4.0-5.8 L HEMOGLOBIN (test code = HGB) 6.6 gram/dL 13.0-17.5 L HEMATOCRIT (test code = HCT) 19.9 % 42.0-52.0 LL Results called to [id number] by [email or web address] 10/09/19 0220Critical results verified and read back by Nurse? YES MEAN CELL VOLUME (test code = MCV) 97.5 fL 80-98 N MEAN CELL HGB (test code = MCH) 32.4 picogram 27.0-33.0 N MEAN CELL HGB CONCETRATION (test code = MCHC) 33.2 gram/dL 33.0-36. 0 N RED CELL DISTRIBUTION WIDTH (test code = RDW) 21.9 % 11.6-16. 2 H RED CELL DISTRIBUTION WIDTH SD (test code = RDW-SD) 77.4 fL 37 .0-51.0 H PLATELET COUNT (test code = PLT) 91 K/mm3 150-450 L MEAN PLATELET VOLUME (test code = MPV) 12.6 fL 6.7-11.0 H NEUTROPHIL % (test code = NT%) 79.1 % 39.0-69.0 H IMMATURE GRANULOCYTE % (test code = IG%) 1.0 % 0.0-5.0 N LYMPHOCYTE % (test code = LY%) 6.6 % 25.0-55.0 L MONOCYTE % (test code = MO%) 10.4 % 0.0-10.0 H EOSINOPHIL % (test code = EO%) 2.3 % 0.0-5.0 N BASOPHIL % (test code = BA%) 0.6 % 0.0-1.0 N NUCLEATED RBC % (test code = NRBC%) 0.0 % 0-0 N NEUTROPHIL # (test code = NT#) 4.10 K/mm3 1.8-7.7 N IMMATURE GRANULOCYTE # (test code = IG#) 0.05 x10 3/uL 0-0.03 H LYMPHOCYTE # (test code = LY#) 0.34 K/mm3 1.0-5.0 L MONOCYTE # (test code = MO#) 0.54 K/mm3 0-0.8 N EOSINOPHIL # (test code = EO#) 0.12 K/mm3 0.0-0.5 N BASOPHIL # (test code = BA#) 0.03 K/mm3 0.0-0.2 N NUCLEATED RBC # (test code = NRBC#) 0.00 K/mm3 0.0-0.1 N MANUAL DIFF REQUIRED (test code = MDIFF) NO, ONLY SCAN NEEDED DIFFERENTIAL [id number] 02:20:00* Test Item Value Reference Range Interpretation Comments STAIN ACCEPTABILITY (test code = STN ACCEPTABLE) MORPHOLOGY COMMENT (test code = MOC) PLATELET ESTIMATE (test code = PLTEST) PLATELET MORPHOLOGY (test code = PLTMORPH) CBC W/AUTO [id number] 02:20:00* Test Item Value Reference Range Interpretation Comments WHITE BLOOD CELL (test code = WBC) 5.2 K/mm3 4.5-12.5 N RED BLOOD CELL (test code = RBC) 2.04 mill/mm3 4.0-5.8 L HEMOGLOBIN (test code = HGB) 6.6 gram/dL 13.0-17.5 L HEMATOCRIT (test code = HCT) 19.9 % 42.0-52.0 LL Results called to [id number] by [email or web address] 10/09/19 0220Critical results verified and read back by Nurse? YES MEAN CELL VOLUME (test code = MCV) 97.5 fL 80-98 N MEAN CELL HGB (test code = MCH) 32.4 picogram 27.0-33.0 N MEAN CELL HGB CONCETRATION (test code = MCHC) 33.2 gram/dL 33.0-36. 0 N RED CELL DISTRIBUTION WIDTH (test code = RDW) 21.9 % 11.6-16. 2 H RED CELL DISTRIBUTION WIDTH SD (test code = RDW-SD) 77.4 fL 37 .0-51.0 H PLATELET COUNT (test code = PLT) 91 K/mm3 150-450 L MEAN PLATELET VOLUME (test code = MPV) 12.6 fL 6.7-11.0 H NEUTROPHIL % (test code = NT%) 79.1 % 39.0-69.0 H IMMATURE GRANULOCYTE % (test code = IG%) 1.0 % 0.0-5.0 N LYMPHOCYTE % (test code = LY%) 6.6 % 25.0-55.0 L MONOCYTE % (test code = MO%) 10.4 % 0.0-10.0 H EOSINOPHIL % (test code = EO%) 2.3 % 0.0-5.0 N BASOPHIL % (test code = BA%) 0.6 % 0.0-1.0 N NUCLEATED RBC % (test code = NRBC%) 0.0 % 0-0 N NEUTROPHIL # (test code = NT#) 4.10 K/mm3 1.8-7.7 N IMMATURE GRANULOCYTE # (test code = IG#) 0.05 x10 3/uL 0-0.03 H LYMPHOCYTE # (test code = LY#) 0.34 K/mm3 1.0-5.0 L MONOCYTE # (test code = MO#) 0.54 K/mm3 0-0.8 N EOSINOPHIL # (test code = EO#) 0.12 K/mm3 0.0-0.5 N BASOPHIL # (test code = BA#) 0.03 K/mm3 0.0-0.2 N NUCLEATED RBC # (test code = NRBC#) 0.00 K/mm3 0.0-0.1 N MANUAL DIFF REQUIRED (test code = MDIFF) NO, ONLY SCAN NEEDED DIFFERENTIAL [id number] 02:20:00* Test Item Value Reference Range Interpretation Comments STAIN ACCEPTABILITY (test code = STN ACCEPTABLE) CABOT RINGS (test code = CAB) MORPHOLOGY COMMENT (test code = MOC) PLATELET ESTIMATE (test code = PLTEST) PLATELET MORPHOLOGY (test code = PLTMORPH) [id number] 20:19:00* Test Item Value Reference Range Interpretation Comments GLUBED (test code = GLUBED) 252 mg/dL 74-106 H Performed by certified rubber roller grinder operator at [facility] [id number] 16:04:00* Test Item Value Reference Range Interpretation Comments GLUBED (test code = GLUBED) 216 mg/dL 74-106 H Performed by certified rubber roller grinder operator at [facility] HGB [id number] 14:10:00* Test Item Value Reference Range Interpretation Comments HEMOGLOBIN (test code = HGB) 6.8 gram/dL 13.0-17.5 L HEMATOCRIT (test code = HCT) 20.7 % 42.0-52.0 LL Results called to [id number] by LESLIE 10/08/19 1410Critical results verified and read back by Nurse? Y [id number] 11:49:00* Test Item Value Reference Range Interpretation Comments GLUBED (test code = GLUBED) 197 mg/dL 74-106 H Performed by certified rubber roller grinder operator at [facility] [id number] 08:14:00* Test Item Value Reference Range Interpretation Comments GLUBED (test code = GLUBED) 222 mg/dL 74-106 H Performed by certified rubber roller grinder operator at [facility] CBC W/AUTO [id number] 08:14:00* Test Item Value Reference Range Interpretation Comments WHITE BLOOD CELL (test code = WBC) 5.4 K/mm3 4.5-12.5 N RED BLOOD CELL (test code = RBC) 2.02 mill/mm3 4.0-5.8 L HEMOGLOBIN (test code = HGB) 6.6 gram/dL 13.0-17.5 L HEMATOCRIT (test code = HCT) 19.4 % 42.0-52.0 LL Results called to [id number] by LESLIE 10/08/19 0701Critical results verified and read back by Nurse? Y MEAN CELL VOLUME (test code = MCV) 96.0 fL 80-98 N MEAN CELL HGB (test code = MCH) 32.7 picogram 27.0-33.0 N MEAN CELL HGB CONCETRATION (test code = MCHC) 34.0 gram/dL 33.0-36. 0 N RED CELL DISTRIBUTION WIDTH (test code = RDW) 21.6 % 11.6-16. 2 H RED CELL DISTRIBUTION WIDTH SD (test code = RDW-SD) 77.2 fL 37 .0-51.0 H PLATELET COUNT (test code = PLT) 91 K/mm3 150-450 L MEAN PLATELET VOLUME (test code = MPV) 12.3 fL 6.7-11.0 H NEUTROPHIL % (test code = NT%) 80.5 % 39.0-69.0 H IMMATURE GRANULOCYTE % (test code = IG%) 1.1 % 0.0-5.0 N LYMPHOCYTE % (test code = LY%) 5.8 % 25.0-55.0 L MONOCYTE % (test code = MO%) 9.6 % 0.0-10.0 N EOSINOPHIL % (test code = EO%) 2.4 % 0.0-5.0 N BASOPHIL % (test code = BA%) 0.6 % 0.0-1.0 N NUCLEATED RBC % (test code = NRBC%) 0.0 % 0-0 N NEUTROPHIL # (test code = NT#) 4.34 K/mm3 1.8-7.7 N IMMATURE GRANULOCYTE # (test code = IG#) 0.06 x10 3/uL 0-0.03 H LYMPHOCYTE # (test code = LY#) 0.31 K/mm3 1.0-5.0 L MONOCYTE # (test code = MO#) 0.52 K/mm3 0-0.8 N EOSINOPHIL # (test code = EO#) 0.13 K/mm3 0.0-0.5 N BASOPHIL # (test code = BA#) 0.03 K/mm3 0.0-0.2 N NUCLEATED RBC # (test code = NRBC#) 0.00 K/mm3 0.0-0.1 N MANUAL DIFF REQUIRED (test code = MDIFF) NO, ONLY SCAN NEEDED DIFFERENTIAL [id number] 08:14:00* Test Item Value Reference Range Interpretation Comments STAIN ACCEPTABILITY (test code = STN ACCEPTABLE) STAIN ACCEPTABLE POLYCHROMASIA (test code = POLC) 2+ HYPOCHROMIA (test code = HYPO) 2+ POIKILOCYTOSIS (test code = POIK) 2+ ANISOCYTOSIS (test code = ANISO) 2+ TARGET CELLS (test code = TGT) 2+ PLATELET ESTIMATE (test code = PLTEST) DECREASED PLATELET MORPHOLOGY (test code = PLTMORPH) NORMAL BASIC METABOLIC [id number] 07:45:00* Test Item Value Reference Range Interpretation Comments SODIUM (test code = NA) 139 mmol/L 136-145 N POTASSIUM (test code = K) 3.8 mmol/L 3.5-5.1 N CHLORIDE (test code = CL) 103.0 mmol/L 98-107 N CARBON DIOXIDE (test code = CO2) 29.0 mmol/L 21-32 N ANION GAP (test code = GAP) 10.8 10-20 N GLUCOSE (test code = GLU) 246 mg/dL 74-106 H BLOOD UREA NITROGEN (test code = BUN) 43 mg/dL 7-18 H RESULT VERIFIED BY REPEAT ANALYSIS GLOMERULAR FILTRATION RATE (test code = GFR) 16 mL/min >=60 Estimated GFR by using Modified MDRD formula.Chronic kidney disease is defined as either kidney damageor GFR <60 mL/min/1.73 m2 for >3 months. CREATININE (test code = CREAT) 4.00 mg/dL 0.7-1.3 H BUN/CREATININE RATIO (test code = BUN/CREA) 10.8 10-20 N CALCIUM (test code = CA) 8.4 mg/dL 8.5-10.1 L HEPATIC FUNCTION [id number] 07:45:00* Test Item Value Reference Range Interpretation Comments TOTAL PROTEIN (test code = PROT) 6.7 gram/dL 6.4-8.2 N ALBUMIN (test code = ALB) 2.6 g/dL 3.4-5.0 L GLOBULIN (test code = GLOB) 4.1 gram/dL 2.7-4.2 N ALBUMIN/GLOBULIN RATIO (test code = A/G) 0.6 0.75-1.50 L BILIRUBIN TOTAL (test code = BILT) 9.30 mg/dL 0.0-1.0 H BILIRUBIN DIRECT (test code = BILD) 7.99 mg/dL 0.0-0.20 H SGOT/AST (test code = AST) 39 IUnit/L 15-37 H SGPT/ALT (test code = ALT) 53 IUnit/L 12-78 N ALKALINE PHOSPHATASE TOTAL (test code = ALKP) 795 IUnit/L 45-117 H Note change in reference range due to change in reagent. BASIC METABOLIC [id number] 07:37:00* Test Item Value Reference Range Interpretation Comments SODIUM (test code = NA) 139 mmol/L 136-145 N POTASSIUM (test code = K) 3.8 mmol/L 3.5-5.1 N CHLORIDE (test code = CL) 103.0 mmol/L 98-107 N CARBON DIOXIDE (test code = CO2) mmol/L 21-32 ANION GAP (test code = GAP) 10-20 GLUCOSE (test code = GLU) mg/dL 74-106 BLOOD UREA NITROGEN (test code = BUN) mg/dL 7-18 GLOMERULAR FILTRATION RATE (test code = GFR) mL/min >=60 CREATININE (test code = CREAT) mg/dL 0.7-1.3 BUN/CREATININE RATIO (test code = BUN/CREA) 10-20 CALCIUM (test code = CA) mg/dL 8.5-10.1 HEPATIC FUNCTION [id number] 07:37:00* Test Item Value Reference Range Interpretation Comments TOTAL PROTEIN (test code = PROT) gram/dL 6.4-8.2 ALBUMIN (test code = ALB) g/dL 3.4-5.0 GLOBULIN (test code = GLOB) gram/dL 2.7-4.2 ALBUMIN/GLOBULIN RATIO (test code = A/G) 0.75-1.50 BILIRUBIN TOTAL (test code = BILT) mg/dL 0.0-1.0 BILIRUBIN DIRECT (test code = BILD) mg/dL 0.0-0.20 SGOT/AST (test code = AST) IUnit/L 15-37 SGPT/ALT (test code = ALT) IUnit/L 12-78 ALKALINE PHOSPHATASE TOTAL (test code = ALKP) IUnit/L 45-117 CBC W/AUTO [id number] 07:01:00* Test Item Value Reference Range Interpretation Comments WHITE BLOOD CELL (test code = WBC) 5.4 K/mm3 4.5-12.5 N RED BLOOD CELL (test code = RBC) 2.02 mill/mm3 4.0-5.8 L HEMOGLOBIN (test code = HGB) 6.6 gram/dL 13.0-17.5 L HEMATOCRIT (test code = HCT) 19.4 % 42.0-52.0 LL Results called to [id number] by LESLIE 10/08/19 0701Critical results verified and read back by Nurse? Y MEAN CELL VOLUME (test code = MCV) 96.0 fL 80-98 N MEAN CELL HGB (test code = MCH) 32.7 picogram 27.0-33.0 N MEAN CELL HGB CONCETRATION (test code = MCHC) 34.0 gram/dL 33.0-36. 0 N RED CELL DISTRIBUTION WIDTH (test code = RDW) 21.6 % 11.6-16. 2 H RED CELL DISTRIBUTION WIDTH SD (test code = RDW-SD) 77.2 fL 37 .0-51.0 H PLATELET COUNT (test code = PLT) 91 K/mm3 150-450 L MEAN PLATELET VOLUME (test code = MPV) 12.3 fL 6.7-11.0 H NEUTROPHIL % (test code = NT%) 80.5 % 39.0-69.0 H IMMATURE GRANULOCYTE % (test code = IG%) 1.1 % 0.0-5.0 N LYMPHOCYTE % (test code = LY%) 5.8 % 25.0-55.0 L MONOCYTE % (test code = MO%) 9.6 % 0.0-10.0 N EOSINOPHIL % (test code = EO%) 2.4 % 0.0-5.0 N BASOPHIL % (test code = BA%) 0.6 % 0.0-1.0 N NUCLEATED RBC % (test code = NRBC%) 0.0 % 0-0 N NEUTROPHIL # (test code = NT#) 4.34 K/mm3 1.8-7.7 N IMMATURE GRANULOCYTE # (test code = IG#) 0.06 x10 3/uL 0-0.03 H LYMPHOCYTE # (test code = LY#) 0.31 K/mm3 1.0-5.0 L MONOCYTE # (test code = MO#) 0.52 K/mm3 0-0.8 N EOSINOPHIL # (test code = EO#) 0.13 K/mm3 0.0-0.5 N BASOPHIL # (test code = BA#) 0.03 K/mm3 0.0-0.2 N NUCLEATED RBC # (test code = NRBC#) 0.00 K/mm3 0.0-0.1 N MANUAL DIFF REQUIRED (test code = MDIFF) NO, ONLY SCAN NEEDED DIFFERENTIAL [id number] 07:01:00* Test Item Value Reference Range Interpretation Comments STAIN ACCEPTABILITY (test code = STN ACCEPTABLE) CABOT RINGS (test code = CAB) MORPHOLOGY COMMENT (test code = MOC) PLATELET ESTIMATE (test code = PLTEST) PLATELET MORPHOLOGY (test code = PLTMORPH) CBC W/AUTO [id number] 07:01:00* Test Item Value Reference Range Interpretation Comments WHITE BLOOD CELL (test code = WBC) 5.4 K/mm3 4.5-12.5 N RED BLOOD CELL (test code = RBC) 2.02 mill/mm3 4.0-5.8 L HEMOGLOBIN (test code = HGB) 6.6 gram/dL 13.0-17.5 L HEMATOCRIT (test code = HCT) 19.4 % 42.0-52.0 LL Results called to [id number] by LORENE.TYSON 10/08/19 0701Critical results verified and read back by Nurse? Y MEAN CELL VOLUME (test code = MCV) 96.0 fL 80-98 N MEAN CELL HGB (test code = MCH) 32.7 picogram 27.0-33.0 N MEAN CELL HGB CONCETRATION (test code = MCHC) 34.0 gram/dL 33.0-36. 0 N RED CELL DISTRIBUTION WIDTH (test code = RDW) 21.6 % 11.6-16. 2 H RED CELL DISTRIBUTION WIDTH SD (test code = RDW-SD) 77.2 fL 37 .0-51.0 H PLATELET COUNT (test code = PLT) 91 K/mm3 150-450 L MEAN PLATELET VOLUME (test code = MPV) 12.3 fL 6.7-11.0 H NEUTROPHIL % (test code = NT%) 80.5 % 39.0-69.0 H IMMATURE GRANULOCYTE % (test code = IG%) 1.1 % 0.0-5.0 N LYMPHOCYTE % (test code = LY%) 5.8 % 25.0-55.0 L MONOCYTE % (test code = MO%) 9.6 % 0.0-10.0 N EOSINOPHIL % (test code = EO%) 2.4 % 0.0-5.0 N BASOPHIL % (test code = BA%) 0.6 % 0.0-1.0 N NUCLEATED RBC % (test code = NRBC%) 0.0 % 0-0 N NEUTROPHIL # (test code = NT#) 4.34 K/mm3 1.8-7.7 N IMMATURE GRANULOCYTE # (test code = IG#) 0.06 x10 3/uL 0-0.03 H LYMPHOCYTE # (test code = LY#) 0.31 K/mm3 1.0-5.0 L MONOCYTE # (test code = MO#) 0.52 K/mm3 0-0.8 N EOSINOPHIL # (test code = EO#) 0.13 K/mm3 0.0-0.5 N BASOPHIL # (test code = BA#) 0.03 K/mm3 0.0-0.2 N NUCLEATED RBC # (test code = NRBC#) 0.00 K/mm3 0.0-0.1 N MANUAL DIFF REQUIRED (test code = MDIFF) NO, ONLY SCAN NEEDED DIFFERENTIAL [id number] 07:01:00* Test Item Value Reference Range Interpretation Comments STAIN ACCEPTABILITY (test code = STN ACCEPTABLE) CABOT RINGS (test code = CAB) MORPHOLOGY COMMENT (test code = MOC) PLATELET ESTIMATE (test code = PLTEST) PLATELET MORPHOLOGY (test code = PLTMORPH) CBC W/AUTO [id number] 07:01:00* Test Item Value Reference Range Interpretation Comments WHITE BLOOD CELL (test code = WBC) 5.4 K/mm3 4.5-12.5 N RED BLOOD CELL (test code = RBC) 2.02 mill/mm3 4.0-5.8 L HEMOGLOBIN (test code = HGB) 6.6 gram/dL 13.0-17.5 L HEMATOCRIT (test code = HCT) 19.4 % 42.0-52.0 LL Results called to [id number] by LESLIE 10/08/19 0701Critical results verified and read back by Nurse? Y MEAN CELL VOLUME (test code = MCV) 96.0 fL 80-98 N MEAN CELL HGB (test code = MCH) 32.7 picogram 27.0-33.0 N MEAN CELL HGB CONCETRATION (test code = MCHC) 34.0 gram/dL 33.0-36. 0 N RED CELL DISTRIBUTION WIDTH (test code = RDW) 21.6 % 11.6-16. 2 H RED CELL DISTRIBUTION WIDTH SD (test code = RDW-SD) 77.2 fL 37 .0-51.0 H PLATELET COUNT (test code = PLT) 91 K/mm3 150-450 L MEAN PLATELET VOLUME (test code = MPV) 12.3 fL 6.7-11.0 H NEUTROPHIL % (test code = NT%) 80.5 % 39.0-69.0 H IMMATURE GRANULOCYTE % (test code = IG%) 1.1 % 0.0-5.0 N LYMPHOCYTE % (test code = LY%) 5.8 % 25.0-55.0 L MONOCYTE % (test code = MO%) 9.6 % 0.0-10.0 N EOSINOPHIL % (test code = EO%) 2.4 % 0.0-5.0 N BASOPHIL % (test code = BA%) 0.6 % 0.0-1.0 N NUCLEATED RBC % (test code = NRBC%) 0.0 % 0-0 N NEUTROPHIL # (test code = NT#) 4.34 K/mm3 1.8-7.7 N IMMATURE GRANULOCYTE # (test code = IG#) 0.06 x10 3/uL 0-0.03 H LYMPHOCYTE # (test code = LY#) 0.31 K/mm3 1.0-5.0 L MONOCYTE # (test code = MO#) 0.52 K/mm3 0-0.8 N EOSINOPHIL # (test code = EO#) 0.13 K/mm3 0.0-0.5 N BASOPHIL # (test code = BA#) 0.03 K/mm3 0.0-0.2 N NUCLEATED RBC # (test code = NRBC#) 0.00 K/mm3 0.0-0.1 N MANUAL DIFF REQUIRED (test code = MDIFF) NO, ONLY SCAN NEEDED DIFFERENTIAL [id number] 07:01:00* Test Item Value Reference Range Interpretation Comments STAIN ACCEPTABILITY (test code = STN ACCEPTABLE) MORPHOLOGY COMMENT (test code = MOC) PLATELET ESTIMATE (test code = PLTEST) PLATELET MORPHOLOGY (test code = PLTMORPH) CBC W/AUTO [id number] 07:01:00* Test Item Value Reference Range Interpretation Comments WHITE BLOOD CELL (test code = WBC) 5.4 K/mm3 4.5-12.5 N RED BLOOD CELL (test code = RBC) 2.02 mill/mm3 4.0-5.8 L HEMOGLOBIN (test code = HGB) 6.6 gram/dL 13.0-17.5 L HEMATOCRIT (test code = HCT) 19.4 % 42.0-52.0 LL Results called to [id number] by LESLIE 10/08/19 0701Critical results verified and read back by Nurse? Y MEAN CELL VOLUME (test code = MCV) 96.0 fL 80-98 N MEAN CELL HGB (test code = MCH) 32.7 picogram 27.0-33.0 N MEAN CELL HGB CONCETRATION (test code = MCHC) 34.0 gram/dL 33.0-36. 0 N RED CELL DISTRIBUTION WIDTH (test code = RDW) 21.6 % 11.6-16. 2 H RED CELL DISTRIBUTION WIDTH SD (test code = RDW-SD) 77.2 fL 37 .0-51.0 H PLATELET COUNT (test code = PLT) 91 K/mm3 150-450 L MEAN PLATELET VOLUME (test code = MPV) 12.3 fL 6.7-11.0 H NEUTROPHIL % (test code = NT%) 80.5 % 39.0-69.0 H IMMATURE GRANULOCYTE % (test code = IG%) 1.1 % 0.0-5.0 N LYMPHOCYTE % (test code = LY%) 5.8 % 25.0-55.0 L MONOCYTE % (test code = MO%) 9.6 % 0.0-10.0 N EOSINOPHIL % (test code = EO%) 2.4 % 0.0-5.0 N BASOPHIL % (test code = BA%) 0.6 % 0.0-1.0 N NUCLEATED RBC % (test code = NRBC%) 0.0 % 0-0 N NEUTROPHIL # (test code = NT#) 4.34 K/mm3 1.8-7.7 N IMMATURE GRANULOCYTE # (test code = IG#) 0.06 x10 3/uL 0-0.03 H LYMPHOCYTE # (test code = LY#) 0.31 K/mm3 1.0-5.0 L MONOCYTE # (test code = MO#) 0.52 K/mm3 0-0.8 N EOSINOPHIL # (test code = EO#) 0.13 K/mm3 0.0-0.5 N BASOPHIL # (test code = BA#) 0.03 K/mm3 0.0-0.2 N NUCLEATED RBC # (test code = NRBC#) 0.00 K/mm3 0.0-0.1 N MANUAL DIFF REQUIRED (test code = MDIFF) NO, ONLY SCAN NEEDED DIFFERENTIAL [id number] 07:01:00* Test Item Value Reference Range Interpretation Comments STAIN ACCEPTABILITY (test code = STN ACCEPTABLE) CABOT RINGS (test code = CAB) MORPHOLOGY COMMENT (test code = MOC) PLATELET ESTIMATE (test code = PLTEST) PLATELET MORPHOLOGY (test code = PLTMORPH) [id number] 23:25:00* Test Item Value Reference Range Interpretation Comments GLUBED (test code = GLUBED) 187 mg/dL 74-106 H Performed by certified rubber roller grinder operator at [facility] - US ABDOMEN [id number] 20:26:00 Name: [facility]E [facility] : 1965 Age/S: 54 / M [address] [facility] Unit #: [id number] Loc: [place] [address] Phys: Pawel Salvador MD Acct: [id number] Dis Date: Status: ADM IN PHONE #: [phone] Exam Date: 10/07/20192003 FAX #: [phone] Reason: jaundice EXAMS: CPT CODE: [id number] US ABDOMEN COMPLETE [id number] REASON FOR EXAM: jaundice EXAM ORDER DATE: 10/07/2019 7:23 PM Ordering: Pawel Salvador MD Attending:Pawel Salvador MD Location:[facility] PROCEDURE: - US ABDOMEN COMPLETE FINDINGS: The liver is mildly echogenic and nodular in contour. There is no evidence of focal mass identified. The pancreas is within normal limits. The right kidney measures 12.9 x 5.2 cm. The left kidney measures 13.3 x 6.5 cm. There is no evidence of hydronephrosis. There is no evidence of nephrolithiasis. There is no evidence of renal mass. The spleen measures 15.3 cm. The gallbladder is contracted without evidence of gallstone. No evidence of gallbladder wall thickening or pericholecystic fluid. The common bile duct measures 0.2 cm. The aorta and IVC are within normal limits. 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, spl enomegaly and minimal ascites at 2025 Reported and signed by: Mac Kemp CC: Pawel Salvador MD; Adin Faustin MD Technol ogist: Francisco Xie Trnscb Date/Time: 10/07/2019 (2025) [email or web address] Orig Print D/T: S: 10/07/2019 (2028) Probe: PAGE 1 Signed Re port - XR CHEST 1 [id number] 20:24:00 FAX: Pawel Beasley MD [place]: St: [facility] FAX: Adin Kim MD [phone] Name: VIOLETTE L[facility] : 1965 Age/S: 54/M [address] [facility] Unit #: [id number] Loc: [place] [address] Phys: Pawel Salvador MD Acct: [id number] Dis Date: Status: ADM IN PHONE #: [phone] Exam Date: 10/07/20192010 FAX #: [phone] Reason: h/o chf EXAMS: CPT CODE: [id number] XR CHEST 1 V 11467 REASON FOR EXAM: h/o chf EXAM ORDER DATE: 10/07/2019 7:34 PM Ordering: Pawel Salvador MD Attending:Joselyn Salvador MD Location: PROCEDURE: - XR CHEST 1 V COMPARISON: FINDINGS: Portable AP frontal view of the chest obtained at 8:11 PM shows clear lungs without evidence of consolidation. There is no evidence of effusion. The heart size is minimally enlarged. Pu lmonary vasculatures are minimally congested. Right IJ dialysis catheter tip is in the SVC. IMPRESSION: Minimal cardiomegaly and p ulmonary venous congestion at 2023 Reported and signed by: Jamal Peralta M.D. CC: Pawel Salvador MD; Adin Faustin MD echnologist: Thao Shelby RT(R); Ethan Harvey RT(R Trnscrd Date /Time/By: 10/07/2019 (2023) : By: KassiVTL Orig Print D/T: S: 020 (2026) PAGE 1 Signed Report FE W/TOTAL IRON BINDING CAP.2019-10-07 19:51:00* Test Item Value Reference Range Interpretation Comments SERUM IRON (test code = IRON) 87 ug/dL 50-175 N TOTAL IRON BINDING CAPACITY (test code = TIBC) 220 mcg/dL 250-450 L IRON SATURATION (test code = FESAT) 39.55 % 13-45 N HEPATIC FUNCTION [id number] 19:19:00* Test Item Value Reference Range Interpretation Comments TOTAL PROTEIN (test code = PROT) 7.3 gram/dL 6.4-8.2 N ALBUMIN (test code = ALB) 2.9 g/dL 3.4-5.0 L GLOBULIN (test code = GLOB) 4.4 gram/dL 2.7-4.2 H ALBUMIN/GLOBULIN RATIO (test code = A/G) 0.7 0.75-1.50 L BILIRUBIN TOTAL (test code = BILT) 10.80 mg/dL 0.0-1.0 H BILIRUBIN DIRECT (test code = BILD) 9.33 mg/dL 0.0-0.20 H SGOT/AST (test code = AST) 54 IUnit/L 15-37 H SGPT/ALT (test code = ALT) 64 IUnit/L 12-78 N ALKALINE PHOSPHATASE TOTAL (test code = ALKP) 941 IUnit/L 45-117 H Note change in reference range due to change in reagent. [id number] 19:19:00* Test Item Value Reference Range Interpretation Comments LIPASE (test code = LIP) 166 U/L 73.0-393.0 N [id number] 19:19:00* Test Item Value Reference Range Interpretation Comments TROPONIN-I (test code = TROPI) 0.030 ng/mL 0-0.045 N BASIC METABOLIC [id number] 18:22:00* Test Item Value Reference Range Interpretation Comments SODIUM (test code = NA) 138 mmol/L 136-145 N POTASSIUM (test code = K) 3.7 mmol/L 3.5-5.1 N CHLORIDE (test code = CL) 100.0 mmol/L 98-107 N CARBON DIOXIDE (test code = CO2) 29.0 mmol/L 21-32 N ANION GAP (test code = GAP) 12.7 10-20 N GLUCOSE (test code = GLU) 219 mg/dL 74-106 H BLOOD UREA NITROGEN (test code = BUN) 30 mg/dL 7-18 H GLOMERULAR FILTRATION RATE (test code = GFR) 20 mL/min >=60 Estimated GFR by using Modified MDRD formula.Chronic kidney disease is defined as either kidney damageor GFR <60 mL/min/1.73 m2 for >3 months. CREATININE (test code = CREAT) 3.20 mg/dL 0.7-1.3 H BUN/CREATININE RATIO (test code = BUN/CREA) 9.4 10-20 L CALCIUM (test code = CA) 8.8 mg/dL 8.5-10.1 N BASIC METABOLIC [id number] 18:18:00* Test Item Value Reference Range Interpretation Comments SODIUM (test code = NA) 138 mmol/L 136-145 N POTASSIUM (test code = K) 3.7 mmol/L 3.5-5.1 N CHLORIDE (test code = CL) 100.0 mmol/L 98-107 N CARBON DIOXIDE (test code = CO2) mmol/L 21-32 ANION GAP (test code = GAP) 10-20 GLUCOSE (test code = GLU) mg/dL 74-106 BLOOD UREA NITROGEN (test code = BUN) mg/dL 7-18 GLOMERULAR FILTRATION RATE (test code = GFR) mL/min >=60 CREATININE (test code = CREAT) mg/dL 0.7-1.3 BUN/CREATININE RATIO (test code = BUN/CREA) 10-20 CALCIUM (test code = CA) mg/dL 8.5-10.1 PROTHROMBIN [id number] 18:15:00* Test Item Value Reference Range Interpretation Comments PROTHROMBIN TIME PATIENT (test code = PTP) 12.0 seconds 9.0-14.0 N INTERNATIONAL NORMAL RATIO (test code = INR) 1.0 0.8-1.2 N The therapeutic range for oral anticoagulant therapy formost indications is an international normalized ratio (INR)of between 2.0 and 3.0. The recommended therapeutic INRrange for various clinical situations is listed below: Clinical Situation INR range Pulmonary e mbolism treatment (2.0-3.0)Venous thrombosis treatmentVenous thrombosis prophylaxis (high risk surgery)Prevention of systemic embolism from: Acute myocardial infarction Valvular heart disease Atrial fibrillation Mechanical prosthetic heart valves (2.5-3.5) IS PATIENT ON ANTICOAGULANTS? NTHROMBOPLASTIN TIME [id number] 18:15:00* Test Item Value Reference Range Interpretation Comments THROMBOPLASTIN TIME PARTIAL (test code = PTT) 34.2 seconds 25.0-36. 5 N IS PATIENT ON ANTICOAGULANTS? NCBC W/O [id number] 18:07:00* Test Item Value Reference Range Interpretation Comments WHITE BLOOD CELL (test code = WBC) 4.6 K/mm3 4.5-12.5 N RED BLOOD CELL (test code = RBC) 2.22 mill/mm3 4.0-5.8 L HEMOGLOBIN (test code = HGB) 7.2 gram/dL 13.0-17.5 L HEMATOCRIT (test code = HCT) 20.8 % 42.0-52.0 LL Results called to [id number] by MICHELET 10/07/19 1804Critical results verified and read back by Nurse? Y MEAN CELL VOLUME (test code = MCV) 93.7 fL 80-98 N MEAN CELL HGB (test code = MCH) 32.4 picogram 27.0-33.0 N MEAN CELL HGB CONCETRATION (test code = MCHC) 34.6 gram/dL 33.0-36. 0 N RED CELL DISTRIBUTION WIDTH (test code = RDW) 21.2 % 11.6-16. 2 H PLATELET COUNT (test code = PLT) 99 K/mm3 150-450 L MEAN PLATELET VOLUME (test code = MPV) 12.1 fL 6.7-11.0 H [id number] 09:59:00* Test Item Value Reference Range Interpretation Comments GLUBED (test code = GLUBED) 100 mg/dL 74-106 N Performed by certified rubber roller grinder operator at [facility] CBC W/AUTO [id number] 19:58:00* Test Item Value Reference Range Interpretation Comments WHITE BLOOD CELL (test code = WBC) 3.8 K/mm3 4.5-12.5 L RED BLOOD CELL (test code = RBC) 3.51 mill/mm3 4.0-5.8 L HEMOGLOBIN (test code = HGB) 11.1 gram/dL 13.0-17.5 L HEMATOCRIT (test code = HCT) 34.2 % 42.0-52.0 L MEAN CELL VOLUME (test code = MCV) 97.4 fL 80-98 N MEAN CELL HGB (test code = MCH) 31.6 picogram 27.0-33.0 N MEAN CELL HGB CONCETRATION (test code = MCHC) 32.5 gram/dL 33.0-36. 0 L RED CELL DISTRIBUTION WIDTH (test code = RDW) 16.9 % 11.6-16. 2 H RED CELL DISTRIBUTION WIDTH SD (test code = RDW-SD) 60.7 fL 37 .0-51.0 H PLATELET COUNT (test code = PLT) 95 K/mm3 150-450 L RESULT VERIFIED BY REPEAT ANALYSIS MEAN PLATELET VOLUME (test code = MPV) 11.8 fL 6.7-11.0 H NEUTROPHIL % (test code = NT%) 74.3 % 39.0-69.0 H IMMATURE GRANULOCYTE % (test code = IG%) 0.5 % 0.0-5.0 N LYMPHOCYTE % (test code = LY%) 9.0 % 25.0-55.0 L MONOCYTE % (test code = MO%) 11.1 % 0.0-10.0 H EOSINOPHIL % (test code = EO%) 4.0 % 0.0-5.0 N BASOPHIL % (test code = BA%) 1.1 % 0.0-1.0 H NUCLEATED RBC % (test code = NRBC%) 0.0 % 0-0 N NEUTROPHIL # (test code = NT#) 2.82 K/mm3 1.8-7.7 N IMMATURE GRANULOCYTE # (test code = IG#) 0.02 x10 3/uL 0-0.03 N LYMPHOCYTE # (test code = LY#) 0.34 K/mm3 1.0-5.0 L MONOCYTE # (test code = MO#) 0.42 K/mm3 0-0.8 N EOSINOPHIL # (test code = EO#) 0.15 K/mm3 0.0-0.5 N BASOPHIL # (test code = BA#) 0.04 K/mm3 0.0-0.2 N NUCLEATED RBC # (test code = NRBC#) 0.00 K/mm3 0.0-0.1 N MANUAL DIFF REQUIRED (test code = MDIFF) NO, ONLY SCAN NEEDED DIFFERENTIAL [id number] 19:58:00* Test Item Value Reference Range Interpretation Comments STAIN ACCEPTABILITY (test code = STN ACCEPTABLE) STAIN ACCEPTABLE ANISOCYTOSIS (test code = ANISO) 1+ PLATELET ESTIMATE (test code = PLTEST) DECREASED PLATELET MORPHOLOGY (test code = PLTMORPH) NORMAL COMPREHENSIVE METABOLIC [id number] 18:51:00* Test Item Value Reference Range Interpretation Comments SODIUM (test code = NA) 141 mmol/L 136-145 N POTASSIUM (test code = K) 3.9 mmol/L 3.5-5.1 N CHLORIDE (test code = CL) 104.0 mmol/L 98-107 N CARBON DIOXIDE (test code = CO2) 28.0 mmol/L 21-32 N ANION GAP (test code = GAP) 12.9 10-20 N GLUCOSE (test code = GLU) 111 mg/dL 74-106 H BLOOD UREA NITROGEN (test code = BUN) 31 mg/dL 7-18 H GLOMERULAR FILTRATION RATE (test code = GFR) 23 mL/min >=60 Estimated GFR by using Modified MDRD formula.Chronic kidney disease is defined as either kidney damageor GFR <60 mL/min/1.73 m2 for >3 months. CREATININE (test code = CREAT) 2.90 mg/dL 0.7-1.3 H BUN/CREATININE RATIO (test code = BUN/CREA) 10.7 10-20 N TOTAL PROTEIN (test code = PROT) 7.7 gram/dL 6.4-8.2 N ALBUMIN (test code = ALB) 3.3 g/dL 3.4-5.0 L GLOBULIN (test code = GLOB) 4.4 gram/dL 2.7-4.2 H ALBUMIN/GLOBULIN RATIO (test code = A/G) 0.8 0.75-1.50 N CALCIUM (test code = CA) 8.9 mg/dL 8.5-10.1 N BILIRUBIN TOTAL (test code = BILT) 4.80 mg/dL 0.0-1.0 H SGOT/AST (test code = AST) 71 IUnit/L 15-37 H SGPT/ALT (test code = ALT) 72 IUnit/L 12-78 N ALKALINE PHOSPHATASE TOTAL (test code = ALKP) 913 IUnit/L 45-117 H Note change in reference range due to change in reagent. LIPID PROFILE (CORONARY RISK)2019-09-09 18:51:00* Test Item Value Reference Range Interpretation Comments TRIGLYCERIDES (test code = TRIG) 83 mg/dL 20-150 N CHOLESTEROL (test code = CHOL) 261 mg/dL 0-200 H CHOLESTEROL/HDL RATIO (test code = CHOLHDL) 5.0 RATIO 0-4.9 H RISK ASSOCIATED WITH CHOL/HDL RATIOS: Risk Male Female1/2 AVERAGE 3.43 3.27AVERAGE 4.97 4.442X AVERAGE 9.55 7.053X AVERAGE 23.39 11.04 REFERENCE VALUE IS RELATED TO RISK LEVELS ASRECOMMENDED BY THE [facility]. HEART, LUNG, AND BLOOD INST. HDL CHOLESTEROL (test code = HDL) 45 mg/dL 40-60 N LIPOPROTEIN LDL (test code = LDL) 147 mg/dL 100-129 H RN PERSONNEL, CONTACT PHYSICIAN IMMEDIATELY IF THIS IS A STROKE, AMI OR CAROTID STENOSIS PATIENT WHEN THE LDL >100 (1ST OCCURENCE, THIS ADMISSION) Reference Interval: mg/dL mmol/L Optimal <100 <2.6Near/above optimal 100-129 2.6- 3.3Borderline High 130-159 3.4-4.1High 160-189 4.1-4.9Very High >=190 >=4.9========= This LDL result is a direct measurement.========= PROTHROMBIN [id number] 18:47:00* Test Item Value Reference Range Interpretation Comments PROTHROMBIN TIME PATIENT (test code = PTP) 11.4 seconds 9.0-14.0 N INTERNATIONAL NORMAL RATIO (test code = INR) 1.0 0.8-1.2 N The therapeutic range for oral anticoagulant therapy formost indications is an international normalized ratio (INR)of between 2.0 and 3.0. The recommended therapeutic INRrange for various clinical situations is listed below: Clinical Situation INR range Pulmonary e mbolism treatment (2.0-3.0)Venous thrombosis treatmentVenous thrombosis prophylaxis (high risk surgery)Prevention of systemic embolism from: Acute myocardial infarction Valvular heart disease Atrial fibrillation Mechanical prosthetic heart valves (2.5-3.5) THROMBOPLASTIN TIME [id number] 18:47:00* Test Item Value Reference Range Interpretation Comments THROMBOPLASTIN TIME PARTIAL (test code = PTT) 35.7 seconds 25.0-36. 5 N COMPREHENSIVE METABOLIC [id number] 18:43:00* Test Item Value Reference Range Interpretation Comments SODIUM (test code = NA) 141 mmol/L 136-145 N POTASSIUM (test code = K) 3.9 mmol/L 3.5-5.1 N CHLORIDE (test code = CL) 104.0 mmol/L 98-107 N CARBON DIOXIDE (test code = CO2) 28.0 mmol/L 21-32 N ANION GAP (test code = GAP) 12.9 10-20 N GLUCOSE (test code = GLU) mg/dL 74-106 BLOOD UREA NITROGEN (test code = BUN) 31 mg/dL 7-18 H GLOMERULAR FILTRATION RATE (test code = GFR) 23 mL/min >=60 Estimated GFR by using Modified MDRD formula.Chronic kidney disease is defined as either kidney damageor GFR <60 mL/min/1.73 m2 for >3 months. CREATININE (test code = CREAT) 2.90 mg/dL 0.7-1.3 H BUN/CREATININE RATIO (test code = BUN/CREA) 10.7 10-20 N TOTAL PROTEIN (test code = PROT) 7.7 gram/dL 6.4-8.2 N ALBUMIN (test code = ALB) 3.3 g/dL 3.4-5.0 L GLOBULIN (test code = GLOB) 4.4 gram/dL 2.7-4.2 H ALBUMIN/GLOBULIN RATIO (test code = A/G) 0.8 0.75-1.50 N CALCIUM (test code = CA) 8.9 mg/dL 8.5-10.1 N BILIRUBIN TOTAL (test code = BILT) 4.80 mg/dL 0.0-1.0 H SGOT/AST (test code = AST) 71 IUnit/L 15-37 H SGPT/ALT (test code = ALT) 72 IUnit/L 12-78 N ALKALINE PHOSPHATASE TOTAL (test code = ALKP) 913 IUnit/L 45-117 H Note change in reference range due to change in reagent. LIPID PROFILE (CORONARY RISK)2019-09-09 18:43:00* Test Item Value Reference Range Interpretation Comments TRIGLYCERIDES (test code = TRIG) 83 mg/dL 20-150 N CHOLESTEROL (test code = CHOL) 261 mg/dL 0-200 H CHOLESTEROL/HDL RATIO (test code = CHOLHDL) 5.0 RATIO 0-4.9 H RISK ASSOCIATED WITH CHOL/HDL RATIOS: Risk Male Female1/2 AVERAGE 3.43 3.27AVERAGE 4.97 4.442X AVERAGE 9.55 7.053X AVERAGE 23.39 11.04 REFERENCE VALUE IS RELATED TO RISK LEVELS ASRECOMMENDED BY THE [facility]. HEART, LUNG, AND BLOOD INST. HDL CHOLESTEROL (test code = HDL) 45 mg/dL 40-60 N LIPOPROTEIN LDL (test code = LDL) 147 mg/dL 100-129 H RN PERSONNEL, CONTACT PHYSICIAN IMMEDIATELY IF THIS IS A STROKE, AMI OR CAROTID STENOSIS PATIENT WHEN THE LDL >100 (1ST OCCURENCE, THIS ADMISSION) Reference Interval: mg/dL mmol/L Optimal <100 <2.6Near/above optimal 100-129 2.6- 3.3Borderline High 130-159 3.4-4.1High 160-189 4.1-4.9Very High >=190 >=4.9========= This LDL result is a direct measurement.========= CBC W/AUTO [id number] 18:39:00* Test Item Value Reference Range Interpretation Comments WHITE BLOOD CELL (test code = WBC) 3.8 K/mm3 4.5-12.5 L RED BLOOD CELL (test code = RBC) 3.51 mill/mm3 4.0-5.8 L HEMOGLOBIN (test code = HGB) 11.1 gram/dL 13.0-17.5 L HEMATOCRIT (test code = HCT) 34.2 % 42.0-52.0 L MEAN CELL VOLUME (test code = MCV) 97.4 fL 80-98 N MEAN CELL HGB (test code = MCH) 31.6 picogram 27.0-33.0 N MEAN CELL HGB CONCETRATION (test code = MCHC) 32.5 gram/dL 33.0-36. 0 L RED CELL DISTRIBUTION WIDTH (test code = RDW) 16.9 % 11.6-16. 2 H RED CELL DISTRIBUTION WIDTH SD (test code = RDW-SD) 60.7 fL 37 .0-51.0 H PLATELET COUNT (test code = PLT) 95 K/mm3 150-450 L RESULT VERIFIED BY REPEAT ANALYSIS MEAN PLATELET VOLUME (test code = MPV) 11.8 fL 6.7-11.0 H NEUTROPHIL % (test code = NT%) 74.3 % 39.0-69.0 H IMMATURE GRANULOCYTE % (test code = IG%) 0.5 % 0.0-5.0 N LYMPHOCYTE % (test code = LY%) 9.0 % 25.0-55.0 L MONOCYTE % (test code = MO%) 11.1 % 0.0-10.0 H EOSINOPHIL % (test code = EO%) 4.0 % 0.0-5.0 N BASOPHIL % (test code = BA%) 1.1 % 0.0-1.0 H NUCLEATED RBC % (test code = NRBC%) 0.0 % 0-0 N NEUTROPHIL # (test code = NT#) 2.82 K/mm3 1.8-7.7 N IMMATURE GRANULOCYTE # (test code = IG#) 0.02 x10 3/uL 0-0.03 N LYMPHOCYTE # (test code = LY#) 0.34 K/mm3 1.0-5.0 L MONOCYTE # (test code = MO#) 0.42 K/mm3 0-0.8 N EOSINOPHIL # (test code = EO#) 0.15 K/mm3 0.0-0.5 N BASOPHIL # (test code = BA#) 0.04 K/mm3 0.0-0.2 N NUCLEATED RBC # (test code = NRBC#) 0.00 K/mm3 0.0-0.1 N MANUAL DIFF REQUIRED (test code = MDIFF) NO, ONLY SCAN NEEDED DIFFERENTIAL [id number] 18:39:00* Test Item Value Reference Range Interpretation Comments STAIN ACCEPTABILITY (test code = STN ACCEPTABLE) CABOT RINGS (test code = CAB) MORPHOLOGY COMMENT (test code = MOC) PLATELET ESTIMATE (test code = PLTEST) PLATELET MORPHOLOGY (test code = PLTMORPH) CBC W/AUTO [id number] 18:39:00* Test Item Value Reference Range Interpretation Comments WHITE BLOOD CELL (test code = WBC) 3.8 K/mm3 4.5-12.5 L RED BLOOD CELL (test code = RBC) 3.51 mill/mm3 4.0-5.8 L HEMOGLOBIN (test code = HGB) 11.1 gram/dL 13.0-17.5 L HEMATOCRIT (test code = HCT) 34.2 % 42.0-52.0 L MEAN CELL VOLUME (test code = MCV) 97.4 fL 80-98 N MEAN CELL HGB (test code = MCH) 31.6 picogram 27.0-33.0 N MEAN CELL HGB CONCETRATION (test code = MCHC) 32.5 gram/dL 33.0-36. 0 L RED CELL DISTRIBUTION WIDTH (test code = RDW) 16.9 % 11.6-16. 2 H RED CELL DISTRIBUTION WIDTH SD (test code = RDW-SD) 60.7 fL 37 .0-51.0 H PLATELET COUNT (test code = PLT) 95 K/mm3 150-450 L RESULT VERIFIED BY REPEAT ANALYSIS MEAN PLATELET VOLUME (test code = MPV) 11.8 fL 6.7-11.0 H NEUTROPHIL % (test code = NT%) 74.3 % 39.0-69.0 H IMMATURE GRANULOCYTE % (test code = IG%) 0.5 % 0.0-5.0 N LYMPHOCYTE % (test code = LY%) 9.0 % 25.0-55.0 L MONOCYTE % (test code = MO%) 11.1 % 0.0-10.0 H EOSINOPHIL % (test code = EO%) 4.0 % 0.0-5.0 N BASOPHIL % (test code = BA%) 1.1 % 0.0-1.0 H NUCLEATED RBC % (test code = NRBC%) 0.0 % 0-0 N NEUTROPHIL # (test code = NT#) 2.82 K/mm3 1.8-7.7 N IMMATURE GRANULOCYTE # (test code = IG#) 0.02 x10 3/uL 0-0.03 N LYMPHOCYTE # (test code = LY#) 0.34 K/mm3 1.0-5.0 L MONOCYTE # (test code = MO#) 0.42 K/mm3 0-0.8 N EOSINOPHIL # (test code = EO#) 0.15 K/mm3 0.0-0.5 N BASOPHIL # (test code = BA#) 0.04 K/mm3 0.0-0.2 N NUCLEATED RBC # (test code = NRBC#) 0.00 K/mm3 0.0-0.1 N MANUAL DIFF REQUIRED (test code = MDIFF) NO, ONLY SCAN NEEDED DIFFERENTIAL [id number] 18:39:00* Test Item Value Reference Range Interpretation Comments STAIN ACCEPTABILITY (test code = STN ACCEPTABLE) MORPHOLOGY COMMENT (test code = MOC) PLATELET ESTIMATE (test code = PLTEST) PLATELET MORPHOLOGY (test code = PLTMORPH) CBC W/AUTO [id number] 18:39:00* Test Item Value Reference Range Interpretation Comments WHITE BLOOD CELL (test code = WBC) 3.8 K/mm3 4.5-12.5 L RED BLOOD CELL (test code = RBC) 3.51 mill/mm3 4.0-5.8 L HEMOGLOBIN (test code = HGB) 11.1 gram/dL 13.0-17.5 L HEMATOCRIT (test code = HCT) 34.2 % 42.0-52.0 L MEAN CELL VOLUME (test code = MCV) 97.4 fL 80-98 N MEAN CELL HGB (test code = MCH) 31.6 picogram 27.0-33.0 N MEAN CELL HGB CONCETRATION (test code = MCHC) 32.5 gram/dL 33.0-36. 0 L RED CELL DISTRIBUTION WIDTH (test code = RDW) 16.9 % 11.6-16. 2 H RED CELL DISTRIBUTION WIDTH SD (test code = RDW-SD) 60.7 fL 37 .0-51.0 H PLATELET COUNT (test code = PLT) 95 K/mm3 150-450 L RESULT VERIFIED BY REPEAT ANALYSIS MEAN PLATELET VOLUME (test code = MPV) 11.8 fL 6.7-11.0 H NEUTROPHIL % (test code = NT%) 74.3 % 39.0-69.0 H IMMATURE GRANULOCYTE % (test code = IG%) 0.5 % 0.0-5.0 N LYMPHOCYTE % (test code = LY%) 9.0 % 25.0-55.0 L MONOCYTE % (test code = MO%) 11.1 % 0.0-10.0 H EOSINOPHIL % (test code = EO%) 4.0 % 0.0-5.0 N BASOPHIL % (test code = BA%) 1.1 % 0.0-1.0 H NUCLEATED RBC % (test code = NRBC%) 0.0 % 0-0 N NEUTROPHIL # (test code = NT#) 2.82 K/mm3 1.8-7.7 N IMMATURE GRANULOCYTE # (test code = IG#) 0.02 x10 3/uL 0-0.03 N LYMPHOCYTE # (test code = LY#) 0.34 K/mm3 1.0-5.0 L MONOCYTE # (test code = MO#) 0.42 K/mm3 0-0.8 N EOSINOPHIL # (test code = EO#) 0.15 K/mm3 0.0-0.5 N BASOPHIL # (test code = BA#) 0.04 K/mm3 0.0-0.2 N NUCLEATED RBC # (test code = NRBC#) 0.00 K/mm3 0.0-0.1 N MANUAL DIFF REQUIRED (test code = MDIFF) NO, ONLY SCAN NEEDED DIFFERENTIAL [id number] 18:39:00* Test Item Value Reference Range Interpretation Comments STAIN ACCEPTABILITY (test code = STN ACCEPTABLE) MORPHOLOGY COMMENT (test code = MOC) PLATELET ESTIMATE (test code = PLTEST) PLATELET MORPHOLOGY (test code = PLTMORPH) CBC W/AUTO [id number] 18:39:00* Test Item Value Reference Range Interpretation Comments WHITE BLOOD CELL (test code = WBC) 3.8 K/mm3 4.5-12.5 L RED BLOOD CELL (test code = RBC) 3.51 mill/mm3 4.0-5.8 L HEMOGLOBIN (test code = HGB) 11.1 gram/dL 13.0-17.5 L HEMATOCRIT (test code = HCT) 34.2 % 42.0-52.0 L MEAN CELL VOLUME (test code = MCV) 97.4 fL 80-98 N MEAN CELL HGB (test code = MCH) 31.6 picogram 27.0-33.0 N MEAN CELL HGB CONCETRATION (test code = MCHC) 32.5 gram/dL 33.0-36. 0 L RED CELL DISTRIBUTION WIDTH (test code = RDW) 16.9 % 11.6-16. 2 H RED CELL DISTRIBUTION WIDTH SD (test code = RDW-SD) 60.7 fL 37 .0-51.0 H PLATELET COUNT (test code = PLT) 95 K/mm3 150-450 L RESULT VERIFIED BY REPEAT ANALYSIS MEAN PLATELET VOLUME (test code = MPV) 11.8 fL 6.7-11.0 H NEUTROPHIL % (test code = NT%) 74.3 % 39.0-69.0 H IMMATURE GRANULOCYTE % (test code = IG%) 0.5 % 0.0-5.0 N LYMPHOCYTE % (test code = LY%) 9.0 % 25.0-55.0 L MONOCYTE % (test code = MO%) 11.1 % 0.0-10.0 H EOSINOPHIL % (test code = EO%) 4.0 % 0.0-5.0 N BASOPHIL % (test code = BA%) 1.1 % 0.0-1.0 H NUCLEATED RBC % (test code = NRBC%) 0.0 % 0-0 N NEUTROPHIL # (test code = NT#) 2.82 K/mm3 1.8-7.7 N IMMATURE GRANULOCYTE # (test code = IG#) 0.02 x10 3/uL 0-0.03 N LYMPHOCYTE # (test code = LY#) 0.34 K/mm3 1.0-5.0 L MONOCYTE # (test code = MO#) 0.42 K/mm3 0-0.8 N EOSINOPHIL # (test code = EO#) 0.15 K/mm3 0.0-0.5 N BASOPHIL # (test code = BA#) 0.04 K/mm3 0.0-0.2 N NUCLEATED RBC # (test code = NRBC#) 0.00 K/mm3 0.0-0.1 N MANUAL DIFF REQUIRED (test code = MDIFF) NO, ONLY SCAN NEEDED DIFFERENTIAL [id number] 18:39:00* Test Item Value Reference Range Interpretation Comments STAIN ACCEPTABILITY (test code = STN ACCEPTABLE) CABOT RINGS (test code = CAB) MORPHOLOGY COMMENT (test code = MOC) PLATELET ESTIMATE (test code = PLTEST) PLATELET MORPHOLOGY (test code = PLTMORPH) COMPREHENSIVE METABOLIC [id number] 18:28:00* Test Item Value Reference Range Interpretation Comments SODIUM (test code = NA) 141 mmol/L 136-145 N POTASSIUM (test code = K) 3.9 mmol/L 3.5-5.1 N CHLORIDE (test code = CL) 104.0 mmol/L 98-107 N CARBON DIOXIDE (test code = CO2) mmol/L 21-32 ANION GAP (test code = GAP) 10-20 GLUCOSE (test code = GLU) mg/dL 74-106 BLOOD UREA NITROGEN (test code = BUN) mg/dL 7-18 GLOMERULAR FILTRATION RATE (test code = GFR) mL/min >=60 CREATININE (test code = CREAT) mg/dL 0.7-1.3 BUN/CREATININE RATIO (test code = BUN/CREA) 10-20 TOTAL PROTEIN (test code = PROT) gram/dL 6.4-8.2 ALBUMIN (test code = ALB) g/dL 3.4-5.0 GLOBULIN (test code = GLOB) gram/dL 2.7-4.2 ALBUMIN/GLOBULIN RATIO (test code = A/G) 0.75-1.50 CALCIUM (test code = CA) mg/dL 8.5-10.1 BILIRUBIN TOTAL (test code = BILT) mg/dL 0.0-1.0 SGOT/AST (test code = AST) IUnit/L 15-37 SGPT/ALT (test code = ALT) IUnit/L 12-78 ALKALINE PHOSPHATASE TOTAL (test code = ALKP) IUnit/L 45-117 LIPID PROFILE (CORONARY RISK)2019-09-09 18:28:00* Test Item Value Reference Range Interpretation Comments TRIGLYCERIDES (test code = TRIG) mg/dL 20-150 CHOLESTEROL (test code = CHOL) mg/dL 0-200 CHOLESTEROL/HDL RATIO (test code = CHOLHDL) RATIO 0-4.9 HDL CHOLESTEROL (test code = HDL) mg/dL 40-60 LIPOPROTEIN LDL (test code = LDL) mg/dL 100-129 Hepatitis B Surface Antibody, [id number] 10:55:00* Test Item Value Reference Range Interpretation Comments Hepatitis B Surface Antibody, Quant (test code = 5194-6) <3.0 Reference Range: Immunity>9.9 mIU/mLStatus of Immunity Anti-HBs Level Inconsistent with Immunity 0.0 - 9.9Consistent with Immunity >9.9[facility] [id number] 10:55:00* Test Item Value Reference Range Interpretation Comments Hepatitis Be Antigen (test code = 19373-5) Negative [facility] [id number] 09:51:00* Test Item Value Reference Range Interpretation Comments Stool Occult Blood (test code = 2335-8) NEGATIVE NEGATIVE [facility] Neutrophils %2019-07-13 08:32:00* Test Item Value Reference Range Interpretation Comments Band Neutrophils % (test code = 764-1) 1 [facility] CenterHemoglobin A1c [id number] 06:33:00 * Test Item Value Reference Range Interpretation Comments Hemoglobin A1c Percent (test code = Hemoglobin A1c Percent) 6.7 4.0-7.0 [facility] CenterCT ABDOMEN/PELVIS [id number] 15:37:00 [place] [address] Patient Name: VIOLETTE LAMB MR #: [id number] : 1965 Age/Sex: 54/M Req #: [id number] Adm Physician: CINDY ALVAREZ MD Ordered by: CINDY ALVAREZ MD Report #: [id number] Location: MED/SURG3 Room/Bed: [facility] Procedure: [id number]/CT ABDOMEN/PELVIS WO Exam Date: 07/12/19 Exam T ksenia: 1444 REPORT STATUS: Signed CT of the chest, abdomen, and pelvis History: Shortness of breath, pain, an emia Comparison: None available. Technique: Multidetector CT scanning of the ch est, abdomen and pelvis was performed from the level of the thoracic inlet to the inferior pubic ramus, without contrast DOSE REDUCTION: The examinatio n was performed according to departmental dose-optimization program which incl udes automated exposure control, adjustment of the mA and/or kV according to p atient size and/or use of iterative reconstruction technique. Discussion: Chest f indings: There is no axillary, mediastinal, or hilar lymphadenopathy. The re is a right internal jugular hemodialysis catheter placed with the distal ca theter tip terminating at the cavoatrial junction. The heart is mildly enla rged. There is no pericardial effusion. Coronary artery calcifications are not ed. The thoracic aorta is of normal course and caliber. The trachea and jennifer tral airways are clear. Small bilateral pleural effusions are present. There is mild interstitial edema. No focal consolidation is present. Dependent atelectasis is present in the bilateral lower lobes. A 6 mm pulmo nary nodule is identified in the right lower lobe on axial image 33/128. Abdomen and pelvis findings: No focal hepatic lesions are identified. The g allbladder is contracted. No radiopaque gallstones are identified. There is no intrahepatic or extrahepatic ductal dilatation. The spleen is mildly enl arged measuring 14 cm in craniocaudal dimension. The bilateral adrenal glan ds are normal. The pancreas is normal in attenuation. There is no pancreati c ductal dilatation. There is no hydroureteronephrosis bilaterally. No re nal stones are identified. The stomach, small, and large bowel are nondiste nded. There is no evidence of obstruction. The appendix is normal. The ab dominal aorta is of normal course and caliber and demonstrates moderate athero sclerotic calcifications. Moderate ascites is present. No free intraperiton eal air. The urinary bladder is normal. No acute osseous abnormalities are identified. There is diffuse soft tissue anasarca. IMPRESSION: 1. Mild cardiomegaly, interstitial edema, and small bilateral pleural effus ions. 2. Mild splenomegaly. The spleen measures 14 cm in craniocaudal dimensio n. 3. Moderate ascites. Diffuse soft tissue anasarca. 4. 6 mm right lower lo be pulmonary nodule. Recommend follow-up chest CT at 6-12 months and then at 1 8-24 months. Signed by: Cory Caputo MD on 07/12/2019 3:50 PM D ictated By: CORY CAPUTO MD 155 COPY TO: CINDY ALVAREZ MD CT CHEST [id number] 15:37:00 [place] [address] Patient Name: VIOLETTE LAMB MR #: [id number] : 1965 Age/Sex: 54/M Req #: [id number] Adm Physician: CINDY ALVAREZ MD Ordered by: CINDY ALVAREZ MD Report #: [id number] Location: [facility] Room/Bed: [facility] Procedure: [id number]/CT CHEST WO Exam Date: 07/12/19 Exam Time: 1444 REPORT STATUS: Signed CT of the chest, abdomen, and pelvis History: Shortness of breath, pain, anemia Comparison: None available. Technique: Multidetector CT scanning of the chest, abdo men and pelvis was performed from the level of the thoracic inlet to the infer ior pubic ramus, without contrast DOSE REDUCTION: The examination was per formed according to departmental dose-optimization program which includes auto mated exposure control, adjustment of the mA and/or kV according to patient si ze and/or use of iterative reconstruction technique. Discussion: Chest findings: There is no axillary, mediastinal, or hilar lymphadenopathy. There is a r ight internal jugular hemodialysis catheter placed with the distal catheter ti p terminating at the cavoatrial junction. The heart is mildly enlarged. The re is no pericardial effusion. Coronary artery calcifications are noted. The t horacic aorta is of normal course and caliber. The trachea and central airw ays are clear. Small bilateral pleural effusions are present. There is mild interstitial edema. No focal consolidation is present. Dependent atelectasis is present in the bilateral lower lobes. A 6 mm pulmonary nodu le is identified in the right lower lobe on axial image 33/128. Abdomen a nd pelvis findings: No focal hepatic lesions are identified. The gallbladde r is contracted. No radiopaque gallstones are identified. There is no intrahep atic or extrahepatic ductal dilatation. The spleen is mildly enlarged yaya suring 14 cm in craniocaudal dimension. The bilateral adrenal glands are no rmal. The pancreas is normal in attenuation. There is no pancreatic ductal dilatation. There is no hydroureteronephrosis bilaterally. No renal stones are identified. The stomach, small, and large bowel are nondistended. There is no evidence of obstruction. The appendix is normal. The abdominal a troy is of normal course and caliber and demonstrates moderate atherosclerotic calcifications. Moderate ascites is present. No free intraperitoneal air. The urinary bladder is normal. No acute osseous abnormalities are iden tified. There is diffuse soft tissue anasarca. IMPRESSION: 1. Mil d cardiomegaly, interstitial edema, and small bilateral pleural effusions. 2 . Mild splenomegaly. The spleen measures 14 cm in craniocaudal dimension. 3. M oderate ascites. Diffuse soft tissue anasarca. 4. 6 mm right lower lobe pulmon riki nodule. Recommend follow-up chest CT at 6-12 months and then at 18-24 gladis hs. Signed by: Cory Caputo MD on 07/12/2019 3:50 PM Dictated B y: CORY CAPUTO MD 1550 COPY TO: CINDY ALVAREZ MD Thyroid Stimulating Hormone (TSH)2019-07-12 10:29:00* Test Item Value Reference Range Interpretation Comments Thyroid Stimulating Hormone (TSH) (test code = 40531-2) 1.875 0.350-4.940 [facility] CenterB-Type Natriuretic [id number] 12:48:00* Test Item Value Reference Range Interpretation Comments B-Type Natriuretic Peptide (test code = 04681-1) 3663.2 0-100 [facility] CenterUrine [id number] 12:46:00* Test Item Value Reference Range Interpretation Comments Urine WBC (test code = 5821-4) 6-10 0-5 [facility] CenterUrine [id number] 12:46:00* Test Item Value Reference Range Interpretation Comments Urine RBC (test code = 20632-2) 0-5 0-5 [facility] CenterUrine [id number] 12:46:00* Test Item Value Reference Range Interpretation Comments Urine Bacteria (test code = 30535-8) FEW NONE [facility] CenterUrine Epithelial [id number] 12:46:00 * Test Item Value Reference Range Interpretation Comments Urine Epithelial Cells (test code = 49892-5) FEW NONE [facility] CenterUrine [id number] 12:43:00* Test Item Value Reference Range Interpretation Comments Urine Color (test code = 5778-6) YELLOW YELLOW [facility] CenterUrine [id number] 12:43:00* Test Item Value Reference Range Interpretation Comments Urine Clarity (test code = 52614-6) SL CLOUDY CLEAR [facility] CenterUrine Specific [id number] 12:43:00 * Test Item Value Reference Range Interpretation Comments Urine Specific [place] (test code = 5811-5) 1.025 1.010-1.[address] [facility] CenterUrine [id number] 12:43:00* Test Item Value Reference Range Interpretation Comments Urine pH (test code = 40931-9) 6 5-7 [facility] CenterUrine Leukocyte [id number] 12:43:00* Test Item Value Reference Range Interpretation Comments Urine Leukocyte Esterase (test code = 5799-2) MODERATE NEGATIVE [facility] CenterUrine [id number] 12:43:00* Test Item Value Reference Range Interpretation Comments Urine Nitrite (test code = 61992-8) NEGATIVE NEGATIVE [facility] CenterUrine [id number] 12:43:00* Test Item Value Reference Range Interpretation Comments Urine Protein (test code = 5804-0) 2+ NEGATIVE [facility] CenterUrine Glucose (UA)2019-07-11 12:43:00* Test Item Value Reference Range Interpretation Comments Urine Glucose (UA) (test code = 2349-9) 1+ NEGATIVE [facility] CenterUrine [id number] 12:43:00* Test Item Value Reference Range Interpretation Comments Urine Ketones (test code = 66029-3) NEGATIVE NEGATIVE [facility] CenterUrine [id number] 12:43:00* Test Item Value Reference Range Interpretation Comments Urine Urobilinogen (test code = 79632-2) 0.2 0.2-1 [facility] Igegaphqi6796-99-50 12:43:00* Test Item Value Reference Range Interpretation Comments Urine Bilirubin (test code = 1978-6) SMALL NEGATIVE [facility] Sjdia9480-92-40 12:43:00* Test Item Value Reference Range Interpretation Comments Urine Blood (test code = 51979-3) MODERATE NEGATIVE [facility] CenterMagnesium Fnahu4053-52-04 12:41:00* Test Item Value Reference Range Interpretation Comments Magnesium Level (test code = 93950-3) 2.0 1.3-2.1 [facility] Streptococcus Uzuugo8577-27-27 12:41:00* Test Item Value Reference Range Interpretation Comments Group A Streptococcus Screen (test code = 95516-3) NEGATIVE NEG ATIVE [facility] CenterCHEST SINGLE (PORTABLE)2019-07-11 11:31:00 [facility] [address] [address] Patient Name: VIOLETTE LAMB MR #: [id number] : 1965 Age/Sex: 54/M Req #: [id number] Adm Physician: Ordered by: GERALDINE GIRON NP Report #: [id number] Location: ER Room/Bed: Procedure: DX/CHEST SINGLE (PORTABLE) Exam Date: 07/11/19 Exam Time: 1115 REPORT STATUS: S igned Chest, 1 view, 07/11/2019. History: Shortness of breath. Comparison: None available. Findings: The cardiomediastinal silhouette and pulmonary vasculature are prominent. There is no focal consolidation or pl eural effusion. Right IJ tunneled dialysis catheter is present terminating in the superior right atrium. Median sternotomy wires are present. There are no a cute osseous or soft tissue abnormalities. Impression: Cardiomegaly a nd pulmonary vascular congestion. Signed by: Hayden Cannon on 07/11/2019 11 :32 AM Dictated By: HAYDEN CANNON MD [id number] Transcribed By: DARRON on 07/11/19 1132 COPY TO : GERALDINE GRION NP
[2019-12-23] MEDS ORDERED: OXYMETAZOLINE HCL 0.05% NAS 1 SPRAY BTL ONE ×2 (11:00→11:15)
--- NOTE | 2019-12-23 11:21 | Emergency Department Note ---
History of Present Illnes History of Present Illness Chief Complaint: General Medicine Complaints History of Present Illness This is a 54 year old male arrived to the ED for a nose bleed that happened at 3am, resolved now. Patient legally blind Historian: Patient Arrival Mode: Car Onset (how long ago): hour(s) Onset quality: sudden Past Medical/Family History Physician Review I have reviewed the patient's past medical and family history. Any updates have been documented here. Past Medical History Recent Fever: No Clinical Suspicion of Infectio: No New/Unexplained Change in Ment: No Past Medical History: Hypertension, Diabetes, ESRD, Chronic Kidney Disease Other Medical History: ESRD, dialysis, legally blind Other Surgery: Heart Surgery Other Last Tetanus: UTD Review of Systems Review of Systems Constitutional: no symptoms EENTM: other (nose bleed) Cardiovascular: no symptoms Respiratory: no symptoms Gastrointestinal: no symptoms Genitourinary: no symptoms Musculoskeletal: no symptoms Neurological: no symptoms Psychological: no symptoms Endocrine: no symptoms Hematological/Lymphatic: no symptoms Review of other systems All other systems reviewed and negative. Physical Exam Related Data Allergies: Coded Allergies: No Known Allergies (Unverified , 06/17/19) Triage Vital Signs Vital Signs Date Time Temp Pulse Resp B/P (MAP) Pulse Ox O2 Delivery O2 Flow Rate FiO2 12/23/19 10:48 98.4 61 16 147/73 100 Vital signs reviewed: Yes Physical Exam CONSTITUTIONAL Constitutional: well-developed, well-nourished HENT HENT: normocephalic, atraumatic, oropharynx clear/moist, nose normal, other HENT L/R: left ext ear normal, right ext ear normal EYES Eyes: PERRL, conjunctivae normal NECK Neck: ROM normal PULMONARY Pulmonary: effort normal, breath sounds normal CARDIOVASCULAR Cardiovascular: regular rhythm, heart sounds normal, capillary refill normal, normal rate GASTROINTESTINAL Abdominal: soft, nontender, bowel sounds normal GENITOURINARY Genitourinary: exam deferred SKIN Skin: warm, dry MUSCULOSKELETAL Musculoskeletal: ROM normal NEUROLOGICAL Neurological: alert, oriented x 3, no gross motor or sensory deficits PSYCHOLOGICAL Psychological: mood/affect normal, judgement normal Critical Care Time Subsequent provider I assumed direction of critical care for this patient from another provider of my specialty. Assessment & Plan Assessment & Plan Final Impression: (1) Epistaxis Assessment & Plan no active bleeding afrin sprayed patient educated Depart Disposition: HOME, SELF-CARE Last Vital Signs Date Time Temp Pulse Resp B/P (MAP) Pulse Ox O2 Delivery O2 Flow Rate FiO2 12/23/19 10:48 98.4 61 16 147/73 100 Home Meds Reported Medications Lisinopril (LISINOPRIL) 10 Mg Tablet, 20 MG PO DAILY, #30 TAB 07/11/19 Tamsulosin Hcl* (FLOMAX*) 0.4 Mg Cap, 0.4 MG PO DAILY, #30 CAP 07/11/19 Carvedilol (CARVEDILOL) 12.5 Mg Tablet, 25 MG PO BID, #60 TAB 07/11/19 Metformin Hcl (METFORMIN HCL) 500 Mg Tablet, 500 MG PO DAILY, #60 TAB 07/11/19 BONNIE GOVEA, December 23, 2019 11:21
== END 2019-12-23 11:07 | disposition home or self-care (01) ==
LOC: ER 10:09
DX: R04.0 Epistaxis (principal); I12.0 Hypertensive chronic kidney disease with stage 5 chronic kidney disease or end stage renal disease; E11.22 Type 2 diabetes mellitus with diabetic chronic kidney disease; N18.6 End stage renal disease; Z99.2 Dependence on renal dialysis
CPT/HCPCS: 99283

== ENCOUNTER 2019-12-25 09:16 | Emergency (ER) | payer MEDICARE ==
[~2019-12-25] VITALS: Ht 177.8 cm; Wt 87.5 kg
--- OUTSIDE RECORDS SUMMARY | 2019-12-25 09:19 | XMS REPORT ---
Author Author [facility] t Organization [facility] Address [address] [place] [address] Phone Unavailable Care Team Providers Care Plate Hanger Name Role Phone MANE FAUSTIN PCP Alissa SALVADOR Attphys Unavailable CINDY ALVAREZ Attphycristi Unavailable Alissa SALVADOR Admphys Unavailable CINDY ALVAREZ Admphys Unavailable Payers Payer Name Policy Type Policy Number Effective Date Expiration Date Cristi Ayala Medicare Complete [id number] 2019 00:00:00 [facility] Ness Mendes [facility] [id number] 2018 00:00:00 [facility] Advance Directives Directive Decision Effective Date Termination Date Comments Sour ce Yes N/A [facility] Problems Condition Name Condition Details Condition Category Status Onset Date Resolution Date Last Treatment Date Treating Clinician Comments Source Epistaxis Problem [facility] Allergies, Adverse Reactions, Alerts Allergy Name Allergy Type Status Severity Reaction(s) Onset Date Inacti ve Date Treating Clinician Comments Source No Known Allergies DA Active U 2019-10-07 00:00:00 [facility] No Known Allergies DA Active U 2019-09-09 00:00:00 [facility] Social History Social Habit Start Date Stop Date Quantity Comments Source Sex Ass[birth year] At 1965 00:00:00 1965 00:00:00 Male [facility] Medications Ordered Medication Name Filled Medication Name Start Date Stop Da te Current Medication? Ordering Clinician Indication Dosage Frequency Signature (SIG) Comments Components Source Carvedilol Carvedilol Yes 25 [facility] Lisinopril Lisinopril Yes 20 [facility] Metformin Hcl Metformin Hcl Yes 500 [facility] Tamsulosin Hcl (Flomax*) 0.4 Mg CAP Tamsulosin Hcl (Flomax*) 0.4 Mg C AP Yes .4 [facility] Vital Signs Vital Name Observation Time Observation Value Comments Source Weight 2019-12-23 10:48:00 193 [lb_av] [facility] BMI (Body Mass Index) 2019-12-23 10:48:00 27.7 kg/m2 [facility] Body Temperature 2019-10-23 12:00:00 97.6 [degF] [facility] Procedures Procedure Date / Time Performed Performing Clinician Sourc e US Abdomen limited 2019-10-22 00:00:00 YAJAIRA GRAMAJO [facility] TRANSFUSE NONAUT RED BLOOD CELLS IN PERIPH VEIN, PERC 2019-10-18 00:00:00 [facility] PERFORMANCE OF URINARY FILTRATION, <6 HRS/DAY 2019-10-18 00:00:0 0 [facility] CONTROL BLEEDING IN NASAL MUCOSA AND SOFT TISSUE, ENDO 2019-09-30 0 00:00:00 [facility] Computed tomography of chest without contrast 2019-07-12 00:00:0 0 CINDY ALVAREZ [facility] PERFORMANCE OF URINARY FILTRATION, <6 HRS/DAY 2019-07-12 00:00:0 [address] [facility] [address] of abdomen and pelvis without contrast 2019-07-12 00:00:00 [facility] Plan of Care Planned Activity Planned Date Details Comments Source Goal Patient referral [code = [id number] ] [facility] Encounters Start Date/Time End Date/Time Encounter Type Admission Type Attendi [facility] Care Department Encounter ID Source 2019-12-23 10:09:00 2019-12-23 11:07:00 Departed Emergency Room [facility] [id number] [facility] [place] 2019-10-18 22:29:00 2019-10-23 15:50:00 Discharged Inpatient [address] [facility] [id number] [facility] 2019-09-24 15:47:00 2019-09-24 15:47:00 Outpatient [facility] [id number] [facility] 2019-08-07 07:54:00 2019-08-07 07:54:00 Registered Clinic [facility] [id number] [facility] 2019-07-12 08:43:00 2019-07-17 17:30:00 Discharged Inpatient 1 CINDY ALVAREZ [facility] [id number] [facility] 2019-06-17 13:10:00 2019-06-17 16:32:00 Departed Emergency Room [facility] [id number] [facility] Results Test Description Test Time Test Comments Results Result Comments Source Capillary blood glucose measurement by glucometer (mas s/volume) 2019-10-23 10:59:00 Test Item Bedside Glucose (test code = 98865-2) 131 [facility] leukocytes automated count (number/volume)2019-10-23 05:20:00* Test Item Value Reference Range Interpretation Comments White Blood Count (test code = 6690-2) 4.19 [facility] erythrocytes automated count (number/volume)2019-10-23 05:20:00* Test Item Value Reference Range Interpretation Comments Red Blood Count (test code = 789-8) 2.55 [facility] hemoglobin measurement (moles/volume)2019-10-23 05:20:00* Test Item Value Reference Range Interpretation Comments Hemoglobin (test code = 92243-7) 8.3 [facility] CenterAutomated blood hematocrit (volume fraction)2019-10-23 05:20:00* Test Item Value Reference Range Interpretation Comments Hematocrit (test code = 4544-3) 25.0 [facility] CenterAutomated erythrocyte mean corpuscular bqcajl1800-45-35 05:20:00* Test Item Value Reference Range Interpretation Comments Mean Corpuscular Volume (test code = 787-2) 98.0 [facility] CenterAutomated erythrocyte mean corpuscular hemoglobin (mass per erythrocyte)2019-10-23 05:20:00* Test Item Value Reference Range Interpretation Comments Mean Corpuscular Hemoglobin (test code = 785-6) 32.5 [facility] CenterAutomated erythrocyte mean corpuscular hemoglobin concentration measurement (mass/volume)2019-10-23 05:20:00* Test Item Value Reference Range Interpretation Comments Mean Corpuscular Hemoglobin Concent (test code = 786-4) 33.2 [facility] CenterRDW JyuPt-Ifr1114-05-25 05:20:00* Test Item Value Reference Range Interpretation Comments Red Cell Distribution Width (test code = 02558-5) 17.8 [facility] CenterAutomated blood platelet count (count/volume)2019-10-23 05:20:00* Test Item Value Reference Range Interpretation Comments Platelet Count (test code = 777-3) 86 [facility] CenterAutomated blood segmented neutrophil count as percentage of total qcloidbjof7826-52-15 05:20:00* Test Item Value Reference Range Interpretation Comments Neutrophils (%) (Auto) (test code = 40136-0) 76.2 [facility] CenterAutomated blood lymphocyte count as percentage ot total qayucvtnif9265-07-05 05:20:00* Test Item Value Reference Range Interpretation Comments Lymphocytes (%) (Auto) (test code = 736-9) 12.6 [facility] CenterAutomated blood monocyte count as percentage of total qpdgdlgucg3548-40-63 05:20:00* Test Item Value Reference Range Interpretation Comments Monocytes (%) (Auto) (test code = 5905-5) 8.6 [facility] CenterAutformerly [facility]ed blood eosinophil count as percentage of total lkcodfhlje9061-39-74 05:20:00* Test Item Value Reference Range Interpretation Comments Eosinophils (%) (Auto) (test code = 713-8) 2.1 [facility] CenterAutomated blood basophil count as percentage of total kxyvexzsip0843-95-43 05:20:00* Test Item Value Reference Range Interpretation Comments Basophils (%) (Auto) (test code = 706-2) 0.0 [facility] CenterFluoroscopic procedure less than one hour usrpbhcq7867-26-06 05:20:00* Test Item Value Reference Range Interpretation Comments IM GRANULOCYTES % (test code = IM GRANULOCYTES %) 0.5 [facility] CenterAutomated blood neutrophil count 2019-10-23 05:20:00* Test Item Value Reference Range Interpretation Comments Neutrophils # (Auto) (test code = 751-8) 3.2 [facility] CenterBlood lymphocytes count (number/volume) 2019-10-23 05:20:00* Test Item Value Reference Range Interpretation Comments Lymphocytes # (Auto) (test code = 15966-8) 0.[address] [facility] monocytes automated count (number/volume)2019-10-23 05:20:00* Test Item Value Reference Range Interpretation Comments Monocytes # (Auto) (test code = 742-7) 0.4 [facility] CenterAutomated blood eosinophil count 2019-10-23 05:20:00* Test Item Value Reference Range Interpretation Comments Eosinophils # (Auto) (test code = 711-2) 0.1 [facility] CenterAutomated blood basophil count (count/volume)2019-10-23 05:20:00* Test Item Value Reference Range Interpretation Comments Basophils # (Auto) (test code = 704-7) 0.0 [facility] CenterFluoroscopic procedure less than one hour umaduihm2696-07-94 05:20:00* Test Item Value Reference Range Interpretation Comments Absolute Immature Granulocyte (auto (rupindre t code = Absolute Immature Granulocyte (auto) 0.02 [facility] sodium measurement (moles/volume)2019-10-23 05:20:00* Test Item Value Reference Range Interpretation Comments Sodium Level (test code = 2951-2) 133 [facility] plasma potassium measurement (moles/volume)2019-10-23 05:20:00* Test Item Value Reference Range Interpretation Comments Potassium Level (test code = 2823-3) 3.9 [facility] or plasma chloride measurement (moles/volume)2019-10-23 05:20:00* Test Item Value Reference Range Interpretation Comments Chloride Level (test code = 2075-0) 100 [facility] or plasma carbon dioxide, total measurement (moles/volume)2019-10-23 05:20:00* Test Item Value Reference Range Interpretation Comments Carbon Dioxide Level (test code = 2028-9) 24 [facility]ererum or plasma anion cqe2672-28-46 05:20:00* Test Item Value Reference Range Interpretation Comments Anion Gap (test code = 64488-2) 12.9 [facility] or plasma urea nitrogen measurement (mass/volume)2019-10-23 05:20:00* Test Item Value Reference Range Interpretation Comments Blood Urea Nitrogen (test code = 3094-0) 54 [facility]ere[facility] or plasma creatinine measurement (mass/volume)2019-10-23 05:20:00* Test Item Value Reference Range Interpretation Comments Creatinine (test code = 2160-0) 4.25 [facility] or plasma urea nitrogen/creatinine mass zahwl3615-71-03 05:20:00* Test Item Value Reference Range Interpretation Comments BUN/Creatinine Ratio (test code = 3097-3) 13 [facility] CenterEstimated glomerular filtration rate (GFR) wngjxkcmtskuf0376-15-98 05:20:00* Test Item Value Reference Range Interpretation Comments Estimat Glomerular Filtration Rate (test code = 502540445) 15 [facility] CenterGlucose xoqerwwyzhk6239-07-05 05:20:00* Test Item Value Reference Range Interpretation Comments Glucose Level (test code = YCP1895) 158 [facility]ere[facility] or plasma calcium measurement (mass/volume)2019-10-23 05:20:00* Test Item Value Reference Range Interpretation Comments Calcium Level (test code = 73349-4) 7.8 [facility]ererum or plasma total bilirubin measurement (mass/volume)2019-10-23 05:20:00* Test Item Value Reference Range Interpretation Comments Total Bilirubin (test code = 1975-2) 5.3 [facility] CenterFluoroscopic procedure less than one hour gtsntgrc7466-10-68 05:20:00* Test Item Value Reference Range Interpretation Comments Aspartate Amino Transf (AST/SGOT) (test code = Aspartate Amino Transf (AST/SGOT)) 31 [facility]ererum or plasma alanine aminotransferase measurement (enzymatic activity/volume)2019-10-23 05:20:00* Test Item Value Reference Range Interpretation Comments Alanine Aminotransferase (ALT/SGPT) (test code = 1742-6) 36 [facility]ererum or plasma protein measurement (mass/volume)2019-10-23 05:20:00* Test Item Value Reference Range Interpretation Comments Total Protein (test code = 2885-2) 5.8 [facility]ererum or plasma albumin measurement (mass/volume)2019-10-23 05:20:00* Test Item Value Reference Range Interpretation Comments Albumin (test code = 1751-7) 2.2 [facility] CenterPlasma globulin measurement (mass/volume) 2019-10-23 05:20:00* Test Item Value Reference Range Interpretation Comments Globulin (test code = 45445-1) 3.6 [facility]ere[facility] or plasma albumin/globulin mass ilbkt6741-91-46 05:20:00* Test Item Value Reference Range Interpretation Comments Albumin/Globulin Ratio (test code = 1759-0) 0.6 [facility]ererum or plasma alkaline phosphatase measurement (enzymatic activity/volume)2019-10-23 05:20:00* Test Item Value Reference Range Interpretation Comments Alkaline Phosphatase (test code = 6768-6) 630 [facility] CenterUS ABDOMEN TXUEVQP9337-68-55 08:51:00 [place] [address] Patient Name: VIOLETTE LAMB MR #: [id number] : 1965 Age/Sex: 54/M Req #: [id number] Adm Physician: LOUIE SALVADOR MD Ordered by: YAJAIRA GRAMAJO MD Report #: [id number] [facility]: [facility] Room[facility]Bed: [facility] Procedure: 032 4-0001 US/US ABDOMEN LIMITED Exam Date: 10/22/19 Exa m Time: 0745 REPORT STATUS: Signed TECHNIQUE: Grayscale ultrasound of the right abdomen. INDICATION: 54-yea r-old man with jaundice. COMPARISON: Chest, abdomen, and pelvis CT 07/12/20 19. FINDINGS: MIDLINE VASCULATURE: The visualized inferior vena [...] ically Signed By: JIM LAZO MD on 10/22/19857 Transcribed By: DARRON on 10/22/19857 COPY TO: YAJAIRA GRAMAJO MD Serum or plasma conjugated bilirubin measurement (mass/volume)2019-10-21 05:15:00* Test Item Value Reference Range Interpretation Comments Direct Bilirubin (test code = 84604-0) 6.8 [facility] CenterBlood kvadvzk6437-11-27 11:35:00* Test Item Value Reference Range Interpretation Comments Blood Culture (test code = 21559582) NO GROWTH AFTER 5 DAYS, FINAL REPORT [facility] CenterCHEST SINGLE (PORTABLE)2019-10-19 10:26:00 [place] [address] Patient Name: VIOLETTE LAMB MR #: [id number] : 1965 Age/Sex: 54/M Req #: [id number] Adm Physician: LOUIE SALVADOR MD Ordered by: LOUIE SALVADOR MD Report #: [id number] Location: [facility] Room/Bed: [place] [address] Procedure: 0321 -0009 DX/CHEST SINGLE (PORTABLE) Exam [...] By: DARRON on 10/19/19 1028 COPY TO: LOUIE SALVADOR MD Influenza virus A and B antigen identification by immunofluorescence 2019-10-19 08:45:00* Test Item Value Reference Range Interpretation Comments Influenza Virus Types A,B Antigen (test code = 80663-7) NEGATIVE [facility] CenterFluoroscopic procedure less than one hour mipwvifv7526-97-97 08:45:00* Test Item Value Reference Range Interpretation Comments Chlamydia pneumoniae DNA (PCR) (test code = Chlamydia pneumoniae DNA (PCR)) NOT DETECTED [facility] CenterRespiratory virus vpdhq1994-66-47 08:45:00* Test Item Value Reference Range Interpretation Comments Influenza Type A (RT-PCR) (test code = 656403866) NOT DETECTED [facility] CenterFluoroscopic procedure less than one hour uhubgkao7825-73-82 08:45:00* Test Item Value Reference Range Interpretation Comments Mycoplasma pneumoniae (PCR) (test code = Mycoplasma pn eumoniae (PCR)) NOT DETECTED [facility] CenterRespiratory virus hsomm2634-75-24 08:45:00* Test Item Value Reference Range Interpretation Comments Influenza Type B (RT-PCR) (test code = 957569248) NOT DETECTED [facility] CenterRespiratory virus nbyfe8513-89-09 08:45:00* Test Item Value Reference Range Interpretation Comments Respiratory Syncytial Virus (PCR) (test code = 945549758) NOT DETEC SHAGGY [facility] CenterRespiratory virus ssuwb4374-26-93 08:45:00* Test Item Value Reference Range Interpretation Comments Bordetella pertussis DNA (PCR) (test code = 148131261) NOT DETECTED [facility] CenterRespiratory virus jzcth9599-02-36 08:45:00* Test Item Value Reference Range Interpretation Comments Parainfluenza Type 1 (PCR) (test code = 630673106) NOT DETECTED [facility] CenterRespiratory virus biusw7166-84-74 08:45:00* Test Item Value Reference Range Interpretation Comments Parainfluenza Type 2 (PCR) (test code = 282518820) NOT DETECTED [facility] CenterRespiratory virus lghxe0438-71-43 08:45:00* Test Item Value Reference Range Interpretation Comments Parainfluenza Type 3 (PCR) (test code = 964507081) NOT DETECTED [facility] CenterFluoroscopic procedure less than one hour fkhfokhh4360-87-83 08:45:00* Test Item Value Reference Range Interpretation Comments Parainfluenza Type 4 (PCR) (test code = Parainfluenza Type 4 (PCR)) NOT DETECTED [facility] CenterRespiratory virus duvbf7766-54-42 08:45:00* Test Item Value Reference Range Interpretation Comments Rhinovirus (PCR) (test code = 477514967) NOT DETECTED [facility] CenterRespiratory virus uofhu0995-17-13 08:45:00* Test Item Value Reference Range Interpretation Comments Human Metapneumovirus (PCR) (test code = 055193911) DETECTED [facility] CenterRespiratory virus ufifv3291-26-15 08:45:00* Test Item Value Reference Range Interpretation Comments Adenovirus (PCR) (test code = 423330833) NOT DETECTED [facility] CenterFluoroscopic procedure less than one hour krqrkyqg3866-84-78 08:45:00* Test Item Value Reference Range Interpretation Comments Coronavirus Type 229E (PCR) (test code = Coronavirus T ype 229E (PCR)) NOT DETECTED [facility] CenterFluoroscopic procedure less than one hour skmtvogd2317-18-53 08:45:00* Test Item Value Reference Range Interpretation Comments Coronavirus Type HKU1 (PCR) (test code = Coronavirus T ype HKU1 (PCR)) NOT DETECTED [facility] CenterFluoroscopic procedure less than one hour dcqwaxjo9825-18-91 08:45:00* Test Item Value Reference Range Interpretation Comments Coronavirus Type NL63 (PCR) (test code = Coronavirus T ype NL63 (PCR)) NOT DETECTED [facility] CenterFluoroscopic procedure less than one hour vvrriwso8508-08-24 08:45:00* Test Item Value Reference Range Interpretation Comments Coronavirus Type OC43 (PCR) (test code = Coronavirus T ype OC43 (PCR)) NOT DETECTED [facility] CenterCHEST SINGLE (PORTABLE)2019-10-19 06:04:00 [place] [address] Patient Name: VIOLETTE LAMB MR #: [id number] : 1965 Age/Sex: 54/M Req #: [id number] Adm Physician: LOUIE SALVADOR MD Ordered by: LOUIE SALVADOR MD Report #: [id number] Location: [facility] Room/Bed: [facility] Procedure: 0321 -0006 DX/CHEST SINGLE (PORTABLE) Exam [...] MD 9 Transc ribed By: DARRON on 10/19/19609 COPY TO: LOUIE SALVADOR MD Fluoroscopic procedure less than one hour bzjgxhsn5026-74-04 05:30:00* Test Item Value Reference Range Interpretation Comments Differential Total Cells Counted (test code = Differen tial Total Cells Counted) 100 [facility] blood neutrophils/100 leukocytes 2019-10-19 05:30:00* Test Item Value Reference Range Interpretation Comments Neutrophils % (Manual) (test code = 01858-7) 83 [facility] blood lymphocytes/100 leukocytes 2019-10-19 05:30:00* Test Item Value Reference Range Interpretation Comments Lymphocytes % (Manual) (test code = 737-7) 6 [facility] blood monocytes/100 leukocytes 2019-10-19 05:30:00* Test Item Value Reference Range Interpretation Comments Monocytes % (Manual) (test code = 744-3) 6 [facility] eosinophil count as percentage of total povjsymqpb7571-51-90 05:30:00* Test Item Value Reference Range Interpretation Comments Eosinophils % (Manual) (test code = 714-6) 3 [facility] CenterManual basophil uwzaggkopc6165-05-99 05:30:00* Test Item Value Reference Range Interpretation Comments Basophils % (Manual) (test code = 54345-1) 1 [facility] blood myelocytes/100 leukocytes 2019-10-19 05:30:00* Test Item Value Reference Range Interpretation Comments Myelocytes % (test code = 749-2) 1 [facility] platelets count by estimate (number/volume)2019-10-19 05:30:00* Test Item Value Reference Range Interpretation Comments Platelet Estimate (test code = 53468-6) MODERATELY DECREASED [facility] anisocytosis detection by light ljrjqucfbn1371-61-54 05:30:00* Test Item Value Reference Range Interpretation Comments Anisocytosis (test code = 702-1) MODE [facility] macrocytes detection by light eylqfgwsus0871-34-71 05:30:00* Test Item Value Reference Range Interpretation Comments Macrocytosis (test code = 738-5) SLIGHT [facility] CenterRB rohllurhca1927-61-86 05:30:00* Test Item Value Reference Range Interpretation Comments Red Cell Morphology Comment (test code = 6742-1) ABNORMAL [facility] CenterProthrombin time (PT) in platelet poor plasma by coagulation mlyql9897-65-43 05:25:00* Test Item Value Reference Range Interpretation Comments Prothrombin Time (test code = 5902-2) 13.8 [facility] CenterINR in Platelet poor plasma by Coagulation gsspo4993-93-86 05:25:00* Test Item Value Reference Range Interpretation Comments Prothromb Time International Ratio (test code = 6301-6) 1.00 [facility] CenterQualitative serum or plasma hepatitis B virus e antibody by enzyme ujdzdbwqygo0862-23-92 21:30:00* Test Item Value Reference Range Interpretation Comments Hepatitis Be Antibody (test code = 44728-6) Negative [facility] alpha 1 antitrypsin measurement (mass/volume)2019-10-18 21:30:00* Test Item Value Reference Range Interpretation Comments Pxrou-6-Ortjlgsvhxs (test code = 1825-9) 171 [facility]ere[facility] or plasma ceruloplasmin measurement (mass/volume)2019-10-18 21:30:00* Test Item Value Reference Range Interpretation Comments Ceruloplasmin (test code = 2064-4) 41.0 [facility]ererum or plasma hepatitis B virus core antibody detection by umetbphglso1296-67-80 21:30:00* Test Item Value Reference Range Interpretation Comments Hepatitis B Core Total Antibody (test code = 74899-4) Negative [facility]ere[facility] or plasma hepatitis A virus IgM antibody detection by krdhxwmbzem4581-87-66 21:30:00* Test Item Value Reference Range Interpretation Comments Hepatitis A IgM Antibody (test code = 32657-0) Negative [facility] or plasma hepatitis B virus surface antigen detection by uwaddyririf0932-39-67 21:30:00* Test Item Value Reference Range Interpretation Comments Hepatitis B Surface Antigen (test code = 5196-1) Negative [facility]ere[facility] or plasma hepatitis B virus core IgM antibody detection by ciqchhksthz0484-23-92 21:30:00* Test Item Value Reference Range Interpretation Comments Hepatitis B Core IgM Antibody (test code = 64142-1) Negative [facility] hepatitis C virus antibody mmlgexbqh0441-30-74 21:30:00* Test Item Value Reference Range Interpretation Comments Hepatitis C Antibody (test code = 43761-4) <0.1 [facility]ererum mitochondria M2 IgG antibody assay (units/volume)2019-10-18 21:30:00* Test Item Value Reference Range Interpretation Comments Anti-Mitochondrial Antibody (test code = 54931-4) <20.0 [facility]ere[facility] nuclear antibody titer by clkzegvuviixnlipys7178-84-92 21:30:00* Test Item Value Reference Range Interpretation Comments Anti-Nuclear Antibody Screen (test code = 5048-4) Negative [facility]ererum or plasma alkaline phosphatase measurement (enzymatic activity/volume)2019-10-18 21:30:00* Test Item Value Reference Range Interpretation Comments Alkaline Phosphatase (test code = 6768-6) 865 [facility] Centererum or plasma intestinal alkaline phosphatase/total alkaline phosphatase axfqa5903-63-53 21:30:00* Test Item Value Reference Range Interpretation Comments Alkaline Phosphatase Iso-Intestine (test code = 93004-0) 0 [facility] alkaline phosphatase/alkaline phosphatase.[id number] 21:30:00* Test Item Value Reference Range Interpretation Comments Alkaline Phosphatase Iso-Bone (test code = 57651-1) 21 [facility] liver alkaline phosphatase/total alkaline phosphatase [id number] 21:30:00* Test Item Value Reference Range Interpretation Comments Alkaline Phosphatase Iso-Liver (test code = 24917-6) 79 [facility] 21:01:00 [facility] [address] [place] [address] Patient Name: VIOLETTE LAMB MR #: [id number] : 1965 Age/Sex: 54/M Req #: [id number] Adm Physician: LOUIE SALVADOR MD Ordered by: LOUIE SALVADOR MD Report #: [id number] Location: MED/SURG Room/Bed: [facility] Procedure: [id number] DX/CHEST SINGLE (PORTABLE) Exam Date: 10/18/19 Exam Time: 2034 REPORT STATUS: Sig nicole EXAM: CHEST SINGLE (PORTABLE) DATE: 10/18/2019 7:48 PM INDICA TION: FEVER [id number] COMPARISON: Chest x-ray, 2018 FINDINGS: Lines and [...] in the right lung. Signed by: Dr. Hema Zapata M.D. on 10/18/2019 9:03 PM Dictated By: HEMA ZAPATA MD 02 Transcribed By: DARRON on 10/18/192102 COPY TO: LOUIE SALVADOR MD Automated reticulocyte count as percentage of total [id number] 12:40:00* Test Item Value Reference Range Interpretation Comments Percent Reticulocyte Count (test code = 58564-9) 5.5 [facility] CenterAct[facility]oplast[facility] (aPTT) in platelet poor plasma by coagulation [id number] 12:40:00* Test Item Value Reference Range Interpretation Comments Activated Partial Thromboplast Time (test code = 67687-2) 30.1 [facility] iron measurement (mass/volume)2019-10-18 12:40:00* Test Item Value Reference Range Interpretation Comments Iron Level (test code = 2498-4) 47 [facility] iron binding capacity measurement (mass/volume)2019-10-18 12:40:00* Test Item Value Reference Range Interpretation Comments Total Iron Binding Capacity (test code = 2500-7) 223 [facility] iron saturation measurement (mass fraction)2019-10-18 12:40:00* Test Item Value Reference Range Interpretation Comments Percent Iron Saturation (test code = 2502-3) 21 [facility] transferrin measurement (mass/volume)2019-10-18 12:40:00* Test Item Value Reference Range Interpretation Comments Transferrin (test code = 3034-6) 159 [facility] ferritin measurement (mass/volume)2019-10-18 12:40:00* Test Item Value Reference Range Interpretation Comments Ferritin (test code = 2276-4) > 2000.00 [facility] indirect bilirubin measurement (mass/volume)2019-10-18 12:40:00* Test Item Value Reference Range Interpretation Comments Indirect Bilirubin (test code = 1971-1) 2.9 [facility] creatine kinase measurement (enzymatic activity/volume)2019-10-18 12:40:00* Test Item Value Reference Range Interpretation Comments Creatine Kinase (test code = 2157-6) 38 [facility] creatine kinase MB measurement (mass/volume)2019-10-18 12:40:00* Test Item Value Reference Range Interpretation Comments Creatine Kinase MB (test code = 57664-2) 1.20 [facility] CenterTroponin I measurement by highly sensitive enzyme areaycqqzns1142-88-31 12:40:00* Test Item Value Reference Range Interpretation Comments Troponin I (test code = 60195-5) 0.059 [facility] Center[facility] cobalamin (vitamin B12) measurement (mass/volume)2019-10-18 12:40:00* Test Item Value Reference Range Interpretation Comments Vitamin B12 Level (test code = 87657-1) 401 [facility] folate measurement (mass/volume)2019-10-18 12:40:00* Test Item Value Reference Range Interpretation Comments Folate (test code = 2284-8) 9.5 [facility] CenterGLUBED2020-03-14 20:09:00* Test Item Value Reference Range Interpretation Comments GLUBED (test code = GLUBED) 118 mg/dL 74-106 H Performed by certified vacuum plastic forming machine operator at [facility] ANTINUCLEAR ANTIBODIES [id number] 18:07:00* Test Item Value Reference Range Interpretation Comments BRIDGETT SCREEN (test code = ANASCR) Negative Negative Performed At: [facility] [id number] Kyle L MD Ph:[phone] REFAB [id number] 18:07:00* Test Item Value Reference Range Interpretation Comments AB MITOCHONDRIAL (test code = MITOCHAB) <20.0 Units 0.0-20.0 Negative 0.0 - 20.0 Equivocal 20.1 - 24.9 Positive >24.9Mitochondrial (M2) Antibodies are found in 90-96% ofpatients with primary biliary cirrhosis.Performed At: [address] [id number] Sanjai MD Ph:[phone] [id number] 11:29:00* Test Item Value Reference Range Interpretation Comments GLUBED (test code = GLUBED) 133 mg/dL 74-106 H Performed by certified vacuum plastic forming machine operator at [facility] [id number] 11:02:00* Test Item Value Reference Range Interpretation Comments GLUBED (test code = GLUBED) 146 mg/dL 74-106 H Performed by certified vacuum plastic forming machine operator at [facility] AB HIV 1 09:51:00* Test Item Value Reference Range Interpretation Comments AB HIV 1 2 (test code = FZT49CG) Nonreactive NonReactive It is recognized that currently available assays for thedetection of antibodies to HIV-1 and/or HIV-2 may notdetect all infected individuals. A negative test result doesnot exclude the possibility of exposure to or infection withHIV. HIV antibodies may be undetectable in some stages ofthe infection and in some clinical conditions. AB HEPATITIS B [id number] 07:12:00* Test Item Value Reference Range Interpretation Comments AB HEPATITIS B SURFACE (test code = HBSAB) Reactive () Non Reactive: Inconsistent with immunity, less than 10 mIU/mL Reactive: Consistent with immunity, greater than 9.9 mIU/mLPerformed At: [facility] [id number] Kyle L MD Ph:[phone] HEPATITIS B CORE ANTIBODY,[id number] 07:12:00* Test Item Value Reference Range Interpretation Comments HEPATITIS B CORE ANTIBODY,TOT (test code = HBCAB) Negative Nega tive Performed At: [facility] [id number] Palencia MD Ph:[phone] [id number] 05:31:00* Test Item Value Reference Range Interpretation Comments HEMOGLOBIN (test code = HGB) 8.0 gram/dL 13.0-17.5 L [id number] 20:08:00* Test Item Value Reference Range Interpretation Comments GLUBED (test code = GLUBED) 135 mg/dL 74-106 H Performed by certified vacuum plastic forming machine operator at [facility] [id number] 17:42:00* Test Item Value Reference Range Interpretation Comments GLUBED (test code = GLUBED) 237 mg/dL 74-106 H Performed by certified vacuum plastic forming machine operator at [facility] BASIC METABOLIC [id number] 13:54:00* Test Item Value Reference Range Interpretation [...] CA) 8.7 mg/dL 8.5-10.1 N BASIC METABOLIC [id number] 13:49:00* Test Item Value Reference Range Interpretation [...] code = CA) mg/dL 8.5-10.1 CBC W/AUTO [id number] 12:42:00* Test Item Value Reference Range Interpretation [...] = MDIFF) NO, ONLY SCAN NEEDED DIFFERENTIAL [id number] 12:42:00* Test Item Value Reference Range Interpretation Comments STAIN ACCEPTABILITY (test code = STN ACCEPTABLE) STAIN ACCEPTABLE POLYCHROMASIA (test code = POLC) 1+ ANISOCYTOSIS (test code = ANISO) 3+ MACROCYTOSIS (test code = MACR) 3+ PLATELET ESTIMATE (test code = PLTEST) SLIGHTLY DECREASED PLATELET MORPHOLOGY (test code = PLTMORPH) NORMAL [id number] 12:13:00* Test Item Value Reference Range Interpretation Comments GLUBED (test code = GLUBED) 142 mg/dL 74-106 H Performed by certified vacuum plastic forming machine operator at [facility] CBC W/AUTO [id number] 11:55:00* Test Item Value Reference Range Interpretation [...] = MDIFF) NO, ONLY SCAN NEEDED DIFFERENTIAL [id number] 11:55:00* Test Item Value Reference Range Interpretation Comments STAIN ACCEPTABILITY (test code = STN ACCEPTABLE) CABOT RINGS (test code = CAB) MORPHOLOGY COMMENT (test code = MOC) PLATELET ESTIMATE (test code = PLTEST) PLATELET MORPHOLOGY (test code = PLTMORPH) CBC W/AUTO [id number] 11:55:00* Test Item Value Reference Range Interpretation [...] = MDIFF) NO, ONLY SCAN NEEDED DIFFERENTIAL [id number] 11:55:00* Test Item Value Reference Range Interpretation Comments STAIN ACCEPTABILITY (test code = STN ACCEPTABLE) CABOT RINGS (test code = CAB) MORPHOLOGY COMMENT (test code = MOC) PLATELET ESTIMATE (test code = PLTEST) PLATELET MORPHOLOGY (test code = PLTMORPH) CBC W/AUTO [id number] 11:55:00* Test Item Value Reference Range Interpretation [...] = MDIFF) NO, ONLY SCAN NEEDED DIFFERENTIAL [id number] 11:55:00* Test Item Value Reference Range Interpretation Comments STAIN ACCEPTABILITY (test code = STN ACCEPTABLE) MORPHOLOGY COMMENT (test code = MOC) PLATELET ESTIMATE (test code = PLTEST) PLATELET MORPHOLOGY (test code = PLTMORPH) CBC W/AUTO [id number] 11:55:00* Test Item Value Reference Range Interpretation [...] = MDIFF) NO, ONLY SCAN NEEDED DIFFERENTIAL [id number] 11:55:00* Test Item Value Reference Range Interpretation Comments STAIN ACCEPTABILITY (test code = STN ACCEPTABLE) CABOT RINGS (test code = CAB) MORPHOLOGY COMMENT (test code = MOC) PLATELET ESTIMATE (test code = PLTEST) PLATELET MORPHOLOGY (test code = PLTMORPH) CBC W/AUTO [id number] 07:58:00* Test Item Value Reference Range Interpretation [...] = MDIFF) NO, ONLY SCAN NEEDED DIFFERENTIAL [id number] 07:58:00* Test Item Value Reference Range Interpretation Comments STAIN ACCEPTABILITY (test code = STN ACCEPTABLE) STAIN ACCEPTABLE POLYCHROMASIA (test code = POLC) 1+ ANISOCYTOSIS (test code = ANISO) 3+ MACROCYTOSIS (test code = MACR) 3+ PLATELET ESTIMATE (test code = PLTEST) SLIGHTLY DECREASED PLATELET MORPHOLOGY (test code = PLTMORPH) NORMAL CBC W/AUTO [id number] 07:44:00* Test Item Value Reference Range Interpretation [...] = MDIFF) NO, ONLY SCAN NEEDED DIFFERENTIAL [id number] 07:44:00* Test Item Value Reference Range Interpretation Comments STAIN ACCEPTABILITY (test code = STN ACCEPTABLE) CABOT RINGS (test code = CAB) MORPHOLOGY COMMENT (test code = MOC) PLATELET ESTIMATE (test code = PLTEST) PLATELET MORPHOLOGY (test code = PLTMORPH) CBC W/AUTO [id number] 07:44:00* Test Item Value Reference Range Interpretation [...] = MDIFF) NO, ONLY SCAN NEEDED DIFFERENTIAL [id number] 07:44:00* Test Item Value Reference Range Interpretation Comments STAIN ACCEPTABILITY (test code = STN ACCEPTABLE) CABOT RINGS (test code = CAB) MORPHOLOGY COMMENT (test code = MOC) PLATELET ESTIMATE (test code = PLTEST) PLATELET MORPHOLOGY (test code = PLTMORPH) CBC W/AUTO [id number] 07:44:00* Test Item Value Reference Range Interpretation [...] = MDIFF) NO, ONLY SCAN NEEDED DIFFERENTIAL [id number] 07:44:00* Test Item Value Reference Range Interpretation Comments STAIN ACCEPTABILITY (test code = STN ACCEPTABLE) MORPHOLOGY COMMENT (test code = MOC) PLATELET ESTIMATE (test code = PLTEST) PLATELET MORPHOLOGY (test code = PLTMORPH) CBC W/AUTO [id number] 07:44:00* Test Item Value Reference Range Interpretation [...] = MDIFF) NO, ONLY SCAN NEEDED DIFFERENTIAL [id number] 07:44:00* Test Item Value Reference Range Interpretation Comments STAIN ACCEPTABILITY (test code = STN ACCEPTABLE) CABOT RINGS (test code = CAB) MORPHOLOGY COMMENT (test code = MOC) PLATELET ESTIMATE (test code = PLTEST) PLATELET MORPHOLOGY (test code = PLTMORPH) [id number] 07:34:00* Test Item Value Reference Range Interpretation Comments GLUBED (test code = GLUBED) 204 mg/dL 74-106 H Performed by certified vacuum plastic forming machine operator at [facility] [id number] 20:20:00* Test Item Value Reference Range Interpretation Comments GLUBED (test code = GLUBED) 234 mg/dL 74-106 H Performed by certified vacuum plastic forming machine operator at [facility] PROTHROMBIN [id number] 17:59:00* Test Item Value Reference Range Interpretation [...] (2.5-3.5) IS PATIENT ON ANTICOAGULANTS? NCBC W/O [id number] 17:49:00* Test Item Value Reference Range Interpretation [...] code = MPV) 12.2 fL 6.7-11.0 H [id number] 17:21:00* Test Item Value Reference Range Interpretation Comments GLUBED (test code = GLUBED) 146 mg/dL 74-106 H Performed by certified vacuum plastic forming machine operator at [facility] [id number] 12:20:00* Test Item Value Reference Range Interpretation Comments GLUBED (test code = GLUBED) 194 mg/dL 74-106 H Performed by certified vacuum plastic forming machine operator at [facility] ANTINUCLEAR ANTIBODIES [id number] 11:09:00* Test Item Value Reference Range Interpretation Comments BRIDGETT SCREEN (test code = ANASCR) Negative Negative Performed At: [address] [id number] Kyle L MD Ph:[phone] REFAB [id number] 11:09:00* Test Item Value Reference Range Interpretation Comments AB MITOCHONDRIAL (test code = MITOCHAB) EIA <1.0 [id number] 08:13:00* Test Item Value Reference Range Interpretation Comments GLUBED (test code = GLUBED) 188 mg/dL 74-106 H Performed by certified vacuum plastic forming machine operator at [facility] ALPHA FETOPROTEIN TUMOR [id number] 08:10:00* Test Item Value Reference Range Interpretation Comments ALPHA FETOPROTEIN TUMOR MARKER (test code = AFPTM) 3.9 ng/mL 0.0 -8.3 [facility] Electrochemiluminescence Immunoassay(ECLIA)Values obtained with different assay methods or kits cannotbe used interchangeably. Results cannot be interpreted asabsolute evidence of the presence or absence of malignantdisease.This test is not interpretable in females.Performed At: [facility] [id number] Palencia MD Ph:[phone] [id number] 08:07:00* Test Item Value Reference Range Interpretation Comments HEMOGLOBIN (test code = HGB) 8.3 gram/dL 13.0-17.5 L [id number] 20:38:00* Test Item Value Reference Range Interpretation Comments GLUBED (test code = GLUBED) 168 mg/dL 74-106 H Performed by certified vacuum plastic forming machine operator at [facility] [id number] 17:29:00* Test Item Value Reference Range Interpretation Comments GLUBED (test code = GLUBED) 192 mg/dL 74-106 H Performed by certified vacuum plastic forming machine operator at [facility] HGB [id number] 16:55:00* Test Item Value Reference Range Interpretation Comments HEMOGLOBIN (test code = HGB) 8.6 gram/dL 13.0-17.5 L RESULT VERIFIED BY REPEAT ANALYSIS HEMATOCRIT (test code = HCT) 25.4 % 42.0-52.0 L [id number] 13:43:00* Test Item Value Reference Range Interpretation Comments GLUBED (test code = GLUBED) 224 mg/dL 74-106 H Performed by certified vacuum plastic forming machine operator at [facility] ACUTE HEPATITIS [id number] 08:10:00* Test Item Value Reference Range Interpretation [...] with a HCV Nucleic Acid Amplification test ([id number]).Performed At: [facility] [address] [id number] Roe Palencia MD Ph:[phone] [id number] 08:02:00* Test Item Value Reference Range Interpretation Comments GLUBED (test code = GLUBED) 197 mg/dL 74-106 H Performed by certified vacuum plastic forming machine operator at [facility] AG HEPAT B [id number] 07:41:00* Test Item Value Reference Range Interpretation Comments AG HEPAT B SURF (test code = HBSAG) Nonreactive Index Nonreactive BASIC METABOLIC [id number] 03:15:00* Test Item Value Reference Range Interpretation [...] CA) 8.8 mg/dL 8.5-10.1 N HEPATIC FUNCTION [id number] 03:15:00* Test Item Value Reference Range Interpretation [...] due to change in reagent. CBC W/AUTO [id number] 02:51:00* Test Item Value Reference Range Interpretation Comments WHITE BLOOD CELL (test code = WBC) 5.2 K/mm3 4.5-12.5 N RED BLOOD CELL (test code = RBC) 2.04 mill/mm3 4.0-5.8 L HEMOGLOBIN (test code = HGB) 6.6 gram/dL 13.0-17.5 L HEMATOCRIT (test code = HCT) 19.9 % 42.0-52.0 Results called to [id number] by LORENE.MINAL 10/09/19 0220Critical results verified and read back [...] = MDIFF) NO, ONLY SCAN NEEDED DIFFERENTIAL [id number] 02:51:00* Test Item Value Reference Range Interpretation [...] (test code = PLTMORPH) NORMAL BASIC METABOLIC [id number] 02:50:00* Test Item Value Reference Range Interpretation [...] code = CA) mg/dL 8.5-10.1 HEPATIC FUNCTION [id number] 02:50:00* Test Item Value Reference Range Interpretation [...] code = ALKP) IUnit/L 45-117 CBC W/AUTO [id number] 02:20:00* Test Item Value Reference Range Interpretation Comments WHITE BLOOD CELL (test code = WBC) 5.2 K/mm3 4.5-12.5 N RED BLOOD CELL (test code = RBC) 2.04 mill/mm3 4.0-5.8 L HEMOGLOBIN (test code = HGB) 6.6 gram/dL 13.0-17.5 L HEMATOCRIT (test code = HCT) 19.9 % 42.0-52.0 LL Results called to [id number] by DENIJP1 10/09/19 0220Critical results verified and [...] = MDIFF) NO, ONLY SCAN NEEDED DIFFERENTIAL [id number] 02:20:00* Test Item Value Reference Range Interpretation Comments STAIN ACCEPTABILITY (test code = STN ACCEPTABLE) CABOT RINGS (test code = CAB) MORPHOLOGY COMMENT (test code = MOC) PLATELET ESTIMATE (test code = PLTEST) PLATELET MORPHOLOGY (test code = PLTMORPH) CBC W/AUTO [id number] 02:20:00* Test Item Value Reference Range Interpretation Comments WHITE BLOOD CELL (test code = WBC) 5.2 K/mm3 4.5-12.5 N RED BLOOD CELL (test code = RBC) 2.04 mill/mm3 4.0-5.8 L HEMOGLOBIN (test code = HGB) 6.6 gram/dL 13.0-17.5 L HEMATOCRIT (test code = HCT) 19.9 % 42.0-52.0 LL Results called to [id number] by DENIJP1 10/09/19 0220Critical results verified and [...] = MDIFF) NO, ONLY SCAN NEEDED DIFFERENTIAL [id number] 02:20:00* Test Item Value Reference Range Interpretation Comments STAIN ACCEPTABILITY (test code = STN ACCEPTABLE) CABOT RINGS (test code = CAB) MORPHOLOGY COMMENT (test code = MOC) PLATELET ESTIMATE (test code = PLTEST) PLATELET MORPHOLOGY (test code = PLTMORPH) CBC W/AUTO [id number] 02:20:00* Test Item Value Reference Range Interpretation Comments WHITE BLOOD CELL (test code = WBC) 5.2 K/mm3 4.5-12.5 N RED BLOOD CELL (test code = RBC) 2.04 mill/mm3 4.0-5.8 L HEMOGLOBIN (test code = HGB) 6.6 gram/dL 13.0-17.5 L HEMATOCRIT (test code = HCT) 19.9 % 42.0-52.0 Results called to [id number] by LORENE.JP1 10/09/19 0220Critical results verified and [...] = MDIFF) NO, ONLY SCAN NEEDED DIFFERENTIAL [id number] 02:20:00* Test Item Value Reference Range Interpretation Comments STAIN ACCEPTABILITY (test code = STN ACCEPTABLE) MORPHOLOGY COMMENT (test code = MOC) PLATELET ESTIMATE (test code = PLTEST) PLATELET MORPHOLOGY (test code = PLTMORPH) CBC W/AUTO [id number] 02:20:00* Test Item Value Reference Range Interpretation Comments WHITE BLOOD CELL (test code = WBC) 5.2 K/mm3 4.5-12.5 N RED BLOOD CELL (test code = RBC) 2.04 mill/mm3 4.0-5.8 L HEMOGLOBIN (test code = HGB) 6.6 gram/dL 13.0-17.5 L HEMATOCRIT (test code = HCT) 19.9 % 42.0-52.0 LL Results called to [id number] by DENIJP1 10/09/19 0220Critical results verified and [...] = MDIFF) NO, ONLY SCAN NEEDED DIFFERENTIAL [id number] 02:20:00* Test Item Value Reference Range Interpretation Comments STAIN ACCEPTABILITY (test code = STN ACCEPTABLE) CABOT RINGS (test code = CAB) MORPHOLOGY COMMENT (test code = MOC) PLATELET ESTIMATE (test code = PLTEST) PLATELET MORPHOLOGY (test code = PLTMORPH) [id number] 20:19:00* Test Item Value Reference Range Interpretation Comments GLUBED (test code = GLUBED) 252 mg/dL 74-106 H Performed by certified vacuum plastic forming machine operator at [facility] [id number] 16:04:00* Test Item Value Reference Range Interpretation Comments GLUBED (test code = GLUBED) 216 mg/dL 74-106 H Performed by certified vacuum plastic forming machine operator at [facility] HGB [id number] 14:10:00* Test Item Value Reference Range Interpretation Comments HEMOGLOBIN (test code = HGB) 6.8 gram/dL 13.0-17.5 L HEMATOCRIT (test code = HCT) 20.7 % 42.0-52.0 LL Results called to [place] [address] by VAnushaLABYANN 10/08/19 1410Critical results verified and read back by Nurse? Y [id number] 11:49:00* Test Item Value Reference Range Interpretation Comments GLUBED (test code = GLUBED) 197 mg/dL 74-106 H Performed by certified vacuum plastic forming machine operator at [facility] [id number] 08:14:00* Test Item Value Reference Range Interpretation Comments GLUBED (test code = GLUBED) 222 mg/dL 74-106 H Performed by certified vacuum plastic forming machine operator at [facility] CBC W/AUTO [id number] 08:14:00* Test Item Value Reference Range Interpretation Comments WHITE BLOOD CELL (test code = WBC) 5.4 K/mm3 4.5-12.5 N RED BLOOD CELL (test code = RBC) 2.02 mill/mm3 4.0-5.8 L HEMOGLOBIN (test code = HGB) 6.6 gram/dL 13.0-17.5 L HEMATOCRIT (test code = HCT) 19.4 % 42.0-52.0 LL Results called to [id number] by LESLIE 10/08/19 0701Critical results verified and [...] = MDIFF) NO, ONLY SCAN NEEDED DIFFERENTIAL [id number] 08:14:00* Test Item Value Reference Range Interpretation [...] (test code = PLTMORPH) NORMAL BASIC METABOLIC [id number] 07:45:00* Test Item Value Reference Range Interpretation [...] CA) 8.4 mg/dL 8.5-10.1 L HEPATIC FUNCTION [id number] 07:45:00* Test Item Value Reference Range Interpretation [...] due to change in reagent. BASIC METABOLIC [id number] 07:37:00* Test Item Value Reference Range Interpretation [...] code = CA) mg/dL 8.5-10.1 HEPATIC FUNCTION [id number] 07:37:00* Test Item Value Reference Range Interpretation [...] code = ALKP) IUnit/L 45-117 CBC W/AUTO [id number] 07:01:00* Test Item Value Reference Range Interpretation Comments WHITE BLOOD CELL (test code = WBC) 5.4 K/mm3 4.5-12.5 N RED BLOOD CELL (test code = RBC) 2.02 mill/mm3 4.0-5.8 L HEMOGLOBIN (test code = HGB) 6.6 gram/dL 13.0-17.5 L HEMATOCRIT (test code = HCT) 19.4 % 42.0-52.0 LL Results called to [id number] by LESLIE 10/08/19 0701Critical results verified and [...] = MDIFF) NO, ONLY SCAN NEEDED DIFFERENTIAL [id number] 07:01:00* Test Item Value Reference Range Interpretation Comments STAIN ACCEPTABILITY (test code = STN ACCEPTABLE) CABOT RINGS (test code = CAB) MORPHOLOGY COMMENT (test code = MOC) PLATELET ESTIMATE (test code = PLTEST) PLATELET MORPHOLOGY (test code = PLTMORPH) CBC W/AUTO [id number] 07:01:00* Test Item Value Reference Range Interpretation Comments WHITE BLOOD CELL (test code = WBC) 5.4 K/mm3 4.5-12.5 N RED BLOOD CELL (test code = RBC) 2.02 mill/mm3 4.0-5.8 L HEMOGLOBIN (test code = HGB) 6.6 gram/dL 13.0-17.5 L HEMATOCRIT (test code = HCT) 19.4 % 42.0-52.0 LL Results called to [id number] by LESLIE 10/08/19 0701Critical results verified and [...] = MDIFF) NO, ONLY SCAN NEEDED DIFFERENTIAL [id number] 07:01:00* Test Item Value Reference Range Interpretation Comments STAIN ACCEPTABILITY (test code = STN ACCEPTABLE) CABOT RINGS (test code = CAB) MORPHOLOGY COMMENT (test code = MOC) PLATELET ESTIMATE (test code = PLTEST) PLATELET MORPHOLOGY (test code = PLTMORPH) CBC W/AUTO [id number] 07:01:00* Test Item Value Reference Range Interpretation Comments WHITE BLOOD CELL (test code = WBC) 5.4 K/mm3 4.5-12.5 N RED BLOOD CELL (test code = RBC) 2.02 mill/mm3 4.0-5.8 L HEMOGLOBIN (test code = HGB) 6.6 gram/dL 13.0-17.5 L HEMATOCRIT (test code = HCT) 19.4 % 42.0-52.0 LL Results called to [id number] by LESLIE 10/08/19 0701Critical results verified and [...] = MDIFF) NO, ONLY SCAN NEEDED DIFFERENTIAL [id number] 07:01:00* Test Item Value Reference Range Interpretation Comments STAIN ACCEPTABILITY (test code = STN ACCEPTABLE) MORPHOLOGY COMMENT (test code = MOC) PLATELET ESTIMATE (test code = PLTEST) PLATELET MORPHOLOGY (test code = PLTMORPH) CBC W/AUTO [id number] 07:01:00* Test Item Value Reference Range Interpretation Comments WHITE BLOOD CELL (test code = WBC) 5.4 K/mm3 4.5-12.5 N RED BLOOD CELL (test code = RBC) 2.02 mill/mm3 4.0-5.8 L HEMOGLOBIN (test code = HGB) 6.6 gram/dL 13.0-17.5 L HEMATOCRIT (test code = HCT) 19.4 % 42.0-52.0 LL Results called to [id number] by LESLIE 10/08/19 0701Critical results verified and [...] = MDIFF) NO, ONLY SCAN NEEDED DIFFERENTIAL [id number] 07:01:00* Test Item Value Reference Range Interpretation Comments STAIN ACCEPTABILITY (test code = STN ACCEPTABLE) CABOT RINGS (test code = CAB) MORPHOLOGY COMMENT (test code = MOC) PLATELET ESTIMATE (test code = PLTEST) PLATELET MORPHOLOGY (test code = PLTMORPH) [id number] 23:25:00* Test Item Value Reference Range Interpretation Comments GLUBED (test code = GLUBED) 187 mg/dL 74-106 H Performed by certified vacuum plastic forming machine operator at [facility] - US ABDOMEN [id number] 20:26:00 Name: VIOLETTE LAMB [facility] : 1965 Age/S: 54 / M [address] [facility] Unit #: [id number] [place] [address] Phys: Louie Salvador MD Acct: [id number] Dis Date: Status: ADM IN PHONE #: [phone] Exam Date: 10/07/20192003 FAX #: [phone] Reason: jaundice EXAMS: CPT CODE: [id number] US ABDOMEN COMPLETE 29703 REASON FOR EXAM: jaundice EXAM ORDER DATE: 10/07/2019 7:23 PM Ordering: Louie Salvador MD Attending:Louie Salvador MD Location:[facility] PROCEDURE: - US ABDOMEN COMPLETE FINDINGS: [...] Reported and signed by: Mac Kemp CC: Louie Salvador MD; Mane Faustin MD Technol ogist: Francisco Xie Trnscb Date/Time: 10/07/2019 (2025) t.SDR.VTL Orig Print D/T: S: 10/07/2019 (2028) Probe: PAGE 1 Signed Re port - XR CHEST 1 [id number] 20:24:00 FAX: Louie Beasley MD [place]: B St: [facility] FAX: Mane Kim MD [phone] Name: VIOLETTE LAMB [facility] : 1965 Age/S: 54/M [address] [facility] Unit #: [id number] Loc: [place] [address] Phys: Louie Salvador MD Acct: [id number] Dis Date: Status: ADM IN PHONE #: [phone] Exam Date: 10/07/20192010 FAX #: [phone] Reason: h/o chf EXAMS: CPT CODE: [id number] XR CHEST 1 V 56630 REASON FOR EXAM: h/o chf EXAM ORDER DATE: 10/07/2019 7:34 PM Ordering: Louie Salvador MD Attending:Joselyn Salvador MD Location: PROCEDURE: [...] and signed by: Jamal Peralta M.D. CC: Louie Salvador MD; Mane Faustin MD echnologist: Thao Shelby RT(R); Ethan Harvey RT(R Trnscrd Date /Time/By: 10/07/2019 (2023) : By: ThorL Orig Print D/T: S: 020 (2026) PAGE 1 Signed Report FE W/TOTAL IRON BINDING CAP.2019-10-07 19:51:00* Test Item Value Reference Range Interpretation Comments SERUM IRON (test code = IRON) 87 ug/dL 50-175 N TOTAL IRON BINDING CAPACITY (test code = TIBC) 220 mcg/dL 250-450 L IRON SATURATION (test code = FESAT) 39.55 % 13-45 N HEPATIC FUNCTION [id number] 19:19:00* Test Item Value Reference Range Interpretation [...] reference range due to change in reagent. [id number] 19:19:00* Test Item Value Reference Range Interpretation Comments LIPASE (test code = LIP) 166 U/L 73.0-393.0 N [id number] 19:19:00* Test Item Value Reference Range Interpretation Comments TROPONIN-I (test code = TROPI) 0.030 ng/mL 0-0.045 N BASIC METABOLIC [id number] 18:22:00* Test Item Value Reference Range Interpretation [...] CA) 8.8 mg/dL 8.5-10.1 N BASIC METABOLIC [id number] 18:18:00* Test Item Value Reference Range Interpretation [...] (test code = CA) mg/dL 8.5-10.1 PROTHROMBIN [id number] 18:15:00* Test Item Value Reference Range Interpretation [...] (2.5-3.5) IS PATIENT ON ANTICOAGULANTS? NTHROMBOPLASTIN TIME [id number] 18:15:00* Test Item Value Reference Range Interpretation Comments THROMBOPLASTIN TIME PARTIAL (test code = PTT) 34.2 seconds 25.0-36. 5 N IS PATIENT ON ANTICOAGULANTS? NCBC W/O [id number] 18:07:00* Test Item Value Reference Range Interpretation Comments WHITE BLOOD CELL (test code = WBC) 4.6 K/mm3 4.5-12.5 N RED BLOOD CELL (test code = RBC) 2.22 mill/mm3 4.0-5.8 L HEMOGLOBIN (test code = HGB) 7.2 gram/dL 13.0-17.5 L HEMATOCRIT (test code = HCT) 20.8 % 42.0-52.0 LL Results called to [id number] by MICHELET 10/07/19 1804Critical results verified and [...] code = MPV) 12.1 fL 6.7-11.0 H [id number] 09:59:00* Test Item Value Reference Range Interpretation Comments GLUBED (test code = GLUBED) 100 mg/dL 74-106 N Performed by certified vacuum plastic forming machine operator at [facility] CBC W/AUTO [id number] 19:58:00* Test Item Value Reference Range Interpretation [...] = MDIFF) NO, ONLY SCAN NEEDED DIFFERENTIAL [id number] 19:58:00* Test Item Value Reference Range Interpretation Comments STAIN ACCEPTABILITY (test code = STN ACCEPTABLE) STAIN ACCEPTABLE ANISOCYTOSIS (test code = ANISO) 1+ PLATELET ESTIMATE (test code = PLTEST) DECREASED PLATELET MORPHOLOGY (test code = PLTMORPH) NORMAL COMPREHENSIVE METABOLIC [id number] 18:51:00* Test Item Value Reference Range Interpretation [...] LDL result is a direct measurement.========= PROTHROMBIN [id number] 18:47:00* Test Item Value Reference Range Interpretation [...] Mechanical prosthetic heart valves (2.5-3.5) THROMBOPLASTIN TIME [id number] 18:47:00* Test Item Value Reference Range Interpretation Comments THROMBOPLASTIN TIME PARTIAL (test code = PTT) 35.7 seconds 25.0-36. 5 N COMPREHENSIVE METABOLIC [id number] 18:43:00* Test Item Value Reference Range Interpretation [...] result is a direct measurement.========= CBC W/AUTO [id number] 18:39:00* Test Item Value Reference Range Interpretation [...] = MDIFF) NO, ONLY SCAN NEEDED DIFFERENTIAL [id number] 18:39:00* Test Item Value Reference Range Interpretation Comments STAIN ACCEPTABILITY (test code = STN ACCEPTABLE) CABOT RINGS (test code = CAB) MORPHOLOGY COMMENT (test code = MOC) PLATELET ESTIMATE (test code = PLTEST) PLATELET MORPHOLOGY (test code = PLTMORPH) CBC W/AUTO [id number] 18:39:00* Test Item Value Reference Range Interpretation [...] = MDIFF) NO, ONLY SCAN NEEDED DIFFERENTIAL [id number] 18:39:00* Test Item Value Reference Range Interpretation Comments STAIN ACCEPTABILITY (test code = STN ACCEPTABLE) MORPHOLOGY COMMENT (test code = MOC) PLATELET ESTIMATE (test code = PLTEST) PLATELET MORPHOLOGY (test code = PLTMORPH) CBC W/AUTO [id number] 18:39:00* Test Item Value Reference Range Interpretation [...] = MDIFF) NO, ONLY SCAN NEEDED DIFFERENTIAL [id number] 18:39:00* Test Item Value Reference Range Interpretation Comments STAIN ACCEPTABILITY (test code = STN ACCEPTABLE) MORPHOLOGY COMMENT (test code = MOC) PLATELET ESTIMATE (test code = PLTEST) PLATELET MORPHOLOGY (test code = PLTMORPH) CBC W/AUTO [id number] 18:39:00* Test Item Value Reference Range Interpretation [...] = MDIFF) NO, ONLY SCAN NEEDED DIFFERENTIAL [id number] 18:39:00* Test Item Value Reference Range Interpretation Comments STAIN ACCEPTABILITY (test code = STN ACCEPTABLE) CABOT RINGS (test code = CAB) MORPHOLOGY COMMENT (test code = MOC) PLATELET ESTIMATE (test code = PLTEST) PLATELET MORPHOLOGY (test code = PLTMORPH) COMPREHENSIVE METABOLIC [id number] 18:28:00* Test Item Value Reference Range Interpretation [...] LDL (test code = LDL) mg/dL 100-129 Stool gastrointestinal hemoglobin [id number] 05:30:00* Test Item Value Reference Range Interpretation Comments Stool Occult Blood (test code = 2335-8) NEGATIVE [facility] neutrophils form/100 [id number] 04:15:00* Test Item Value Reference Range Interpretation Comments Band Neutrophils % (test code = 764-1) 1 [facility] CenterFluoroscopic procedure less than one hour [id number] 04:15:00* Test Item Value Reference Range Interpretation Comments Hemoglobin A1c Percent (test code = Hemoglobin A1c Percent) 6.7 [facility] [id number] 15:37:00 [place] [address] Patient Name: VIOLETTE LAMB MR #: [id number] : 1965 Age/Sex: 54/M Req #: [id number] Adm Physician: CINDY ALVAREZ MD Ordered by: CINDY ALVAREZ MD Report #: [id number] Location: [facility] Room/Bed: [facility] Procedure: 1213-[address]/CT ABDOMEN/PELVIS WO Exam [...] PM D ictated By: CORY CAPUTO MD 1550 COPY TO: CINDY ALVAREZ MD CT CHEST [id number] 15:37:00 [place] [address] Patient Name: VIOLETTE LAMB MR #: [id number] : 1965 Age/Sex: 54/M Req #: [id number] Adm Physician: CINDY ALVAREZ MD Ordered by: CINDY ALVAREZ MD Report #: [id number] Location: MED/SURG3 Room/Bed: [facility] Procedure: 1213-[address]/CT CHEST WO Exam [...] MD 1550 COPY TO: CINDY ALVAREZ MD Serum or plasma thyrotropin measurement by detection limit <= 0.005 miu/l (units/volume)2019-07-12 04:15:00* Test Item Value Reference Range Interpretation Comments Thyroid Stimulating Hormone (TSH) (test code = 06446-3) 1.875 [facility] surface antibody assay by radioimmunoassay (units/volume)2019-07-11 19:36:00* Test Item Value Reference Range Interpretation Comments Hepatitis B Surface Antibody, Quant (test code = 5194-6) <3.0 [facility] virus e antigen detection by enzyme [id number] 19:36:00* Test Item Value Reference Range Interpretation Comments Hepatitis Be Antigen (test code = 37381-8) Negative [facility]LE ([facility]ABLE)2019-07-11 11:31:00 [facility] [address] [place] [address] Patient Name: VIOLETTE LAMB MR #: [id number] : 1965 Age/Sex: 54/M Req #: [id number] Adm Physician: Ordered by: GERALDINE GIRON NP Report #: [id number] Location: ER Room/Bed: Procedure: DX/CHEST SINGLE (PORTABLE) [...] on 07/11/19 1132 COPY TO : GERALDINE GIRON NP Serum or plasma magnesium measurement (mass/volume)2019-07-11 11:00:00* Test Item Value Reference Range Interpretation Comments Magnesium Level (test code = 05392-0) 2.0 [facility] Center[facility] [id number] 11:00:00* Test Item Value Reference Range Interpretation Comments B-Type Natriuretic Peptide (test code = 63587-7) 3663.2 [facility] pyogenes antigen detection in [id number] 11:00:00* Test Item Value Reference Range Interpretation Comments Group A Streptococcus Screen (test code = 78161-9) NEGATIVE [facility] Center[facility] color wekcqfxuutvct3149-16-78 10:51:00* Test Item Value Reference Range Interpretation Comments Urine Color (test code = 5778-6) YELLOW [facility] [id number] 10:51:00* Test Item Value Reference Range Interpretation Comments Urine Clarity (test code = 50683-5) SL CLOUDY [facility] Centerpecific gravity of Urine by Test strip 2019-07-11 10:51:00* Test Item Value Reference Range Interpretation Comments Urine Specific Alliance (test code = 5811-5) 1.025 [facility] pH measurement by automated test [id number] 10:51:00* Test Item Value Reference Range Interpretation Comments Urine pH (test code = 96207-2) 6 [facility] leukocyte esterase detection by mczejzgv7804-96-27 10:51:00* Test Item Value Reference Range Interpretation Comments Urine Leukocyte Esterase (test code = 5799-2) MODERATE [facility] nitrite [id number] 10:51:00* Test Item Value Reference Range Interpretation Comments Urine Nitrite (test code = 74271-9) NEGATIVE [facility] CenterU[facility] protein measurement by test strip (mass/volume)2019-07-11 10:51:00* Test Item Value Reference Range Interpretation Comments Urine Protein (test code = 5804-0) 2+ [facility] glucose [id number] 10:51:00* Test Item Value Reference Range Interpretation Comments Urine Glucose (UA) (test code = 2349-9) 1+ [facility] ketones detection by automated test [id number] 10:51:00* Test Item Value Reference Range Interpretation Comments Urine Ketones (test code = 23504-6) NEGATIVE [facility] CenterU[facility] urobilinogen measurement by test strip (mass/volume)2019-07-11 10:51:00* Test Item Value Reference Range Interpretation Comments Urine Urobilinogen (test code = 01675-4) 0.2 [facility] total bilirubin measurement (mass/volume)2019-07-11 10:51:00* Test Item Value Reference Range Interpretation Comments Urine Bilirubin (test code = 1978-6) SMALL [facility] Center[facility] erythrocytes [id number] 10:51:00* Test Item Value Reference Range Interpretation Comments Urine Blood (test code = 82392-8) MODERATE [facility] CenterAutomated urine sediment leukocyte count by microscopy (number/high power field)2019-07-11 10:51:00* Test Item Value Reference Range Interpretation Comments Urine WBC (test code = 5821-4) 6-10 [facility] CenterErythrocytes detection in urine sediment by light [id number] 10:51:00* Test Item Value Reference Range Interpretation Comments Urine RBC (test code = 98646-3) 0-5 [facility] CenterBacteria detection in urine sediment by light ddrdidgpwk9208-97-59 10:51:00* Test Item Value Reference Range Interpretation Comments Urine Bacteria (test code = 03988-4) FEW [facility] CenterEpithelial cells detection in urine sediment by light iwllmigjnm2537-41-34 10:51:00* Test Item Value Reference Range Interpretation Comments Urine Epithelial Cells (test code = 34088-0) FEW [facility]
--- NOTE | 2019-12-25 09:45 | Emergency Department Note ---
History of Present Illnes History of Present Illness Chief Complaint: rgt nose bleed History of Present Illness This is a 54 year old male. was doing well until 1 week ago then rgt nosebleed. seen here at this er, and had a nasal packing. then pt saw ent doctor and he removed the packing. then 7 hours ago pt had a minor rgt nosebleed that resolved in 5 minutes. Historian: Patient Arrival Mode: Car Hot Kettle Tender Required: Yes (pt's son) Onset (how long ago): hour(s) (7) Location: rgt nare Quality: minor Radiation: non-radiation Severity: mild Onset quality: sudden Duration (how long): hour(s) (08/11 of an hour) Timing of current episode: other (duration= 5minutes) Progression: resolved Chronicity: recurrent Context: recent illness, recent surgery, recent immobilization, recent travel, trauma/injury, new medications, hx of DVT/PE, non-compliance w/ medications Relieving factors: none Associated symptoms: denies other symptoms Treatments prior to arrival: none Past Medical/Family History Physician Review I have reviewed the patient's past medical and family history. Any updates have been documented here. Past Medical History Recent Fever: No Clinical Suspicion of Infectio: No New/Unexplained Change in Ment: No Past Medical History: Hypertension, Diabetes, ESRD, Chronic Kidney Disease Other Medical History: ESRD, dialysis, legally blind Other Surgery: Heart Surgery Social History Smoking Cessation: Former smoker Alcohol Use: None Any Illegal Drug Use: No TB Exposure/Symptoms: No Physically hurt or threatened: No Other Last Tetanus: UTD Any Pre-Existing Lines (PICC,: No Is patient up to date on immun: Yes Last Flu: utd Last Pneumovax: utd Review of Systems Review of Systems Constitutional: no symptoms EENTM: as per HPI Cardiovascular: no symptoms Respiratory: no symptoms Gastrointestinal: no symptoms Genitourinary: no symptoms Musculoskeletal: no symptoms Neurological: no symptoms Psychological: no symptoms Endocrine: no symptoms Hematological/Lymphatic: no symptoms Review of other systems All other systems reviewed and negative. Physical Exam Related Data Allergies: Coded Allergies: No Known Allergies (Unverified , 06/17/19) Triage Vital Signs Vital Signs Date Time Temp Pulse Resp B/P (MAP) Pulse Ox O2 Delivery O2 Flow Rate FiO2 12/25/19 09:38 97.0 73 18 148/72 97 Vital signs reviewed: Yes Physical Exam CONSTITUTIONAL Constitutional: well-developed, well-nourished HENT HENT: normocephalic, atraumatic, oropharynx clear/moist, nose normal, other (+ dry blood rgt nare) HENT L/R: left ext ear normal, right ext ear normal EYES Eyes: PERRL, conjunctivae normal NECK Neck: ROM normal PULMONARY Pulmonary: effort normal, breath sounds normal CARDIOVASCULAR Cardiovascular: regular rhythm, heart sounds normal, capillary refill normal, normal rate GASTROINTESTINAL Abdominal: soft, nontender, bowel sounds normal GENITOURINARY Genitourinary: exam deferred SKIN Skin: warm, dry MUSCULOSKELETAL Musculoskeletal: ROM normal NEUROLOGICAL Neurological: alert, oriented x 3, no gross motor or sensory deficits PSYCHOLOGICAL Psychological: mood/affect normal, judgement normal Critical Care Time Subsequent provider I assumed direction of critical care for this patient from another provider of my specialty. Assessment & Plan Assessment & Plan Final Impression: (1) Epistaxis Assessment & Plan f/u with ent steve Depart Disposition: HOME, SELF-CARE Last Vital Signs Date Time Temp Pulse Resp B/P (MAP) Pulse Ox O2 Delivery O2 Flow Rate FiO2 12/25/19 09:38 97.0 73 18 148/72 97 Home Meds Reported Medications Lisinopril (LISINOPRIL) 10 Mg Tablet, 20 MG PO DAILY, #30 TAB 07/11/19 Tamsulosin Hcl* (FLOMAX*) 0.4 Mg Cap, 0.4 MG PO DAILY, #30 CAP 07/11/19 Carvedilol (CARVEDILOL) 12.5 Mg Tablet, 25 MG PO BID, #60 TAB 07/11/19 Metformin Hcl (METFORMIN HCL) 500 Mg Tablet, 500 MG PO DAILY, #60 TAB 07/11/19 DELMAR MARSHALL December 25, 2019 09:45
[2019-12-25 09:47] VITALS: BP 148/72
== END 2019-12-25 09:50 | disposition home or self-care (01) ==
LOC: ER 09:16
DX: R04.0 Epistaxis (principal); I12.0 Hypertensive chronic kidney disease with stage 5 chronic kidney disease or end stage renal disease; E11.22 Type 2 diabetes mellitus with diabetic chronic kidney disease; N18.6 End stage renal disease; Z99.2 Dependence on renal dialysis; Z79.84 Long term (current) use of oral hypoglycemic drugs; H54.8 Legal blindness, as defined in USA
CPT/HCPCS: 99282

== ENCOUNTER 2019-12-26 08:15 | Emergency (ER) | payer MEDICARE, OTHER ==
[~2019-12-26] VITALS: Ht 177.8 cm; Wt 87.5 kg
--- OUTSIDE RECORDS SUMMARY | 2019-12-26 08:20 | XMS REPORT ---
Author Author [facility] t Organization [facility] Address [address] [place] [address] Phone Unavailable Care Team Providers Care Ux Design Manager Name Role Phone MANE FAUSTIN PCP Alissa SALVADOR Attphys Unavailable ALVAREZ, CINDY Attphys Unavailable Alissa SALVADOR YICHING Admphys Unavailable ALVAREZ, CINDY Admphys Unavailable Payers Payer Name Policy Type Policy Number Effective Date Expiration Date Sarita jocelyn [facility] Medicare Complete NA 2019 00:00:00 [facility] [id number] 2018 00:00:00 [facility] Problems Condition Name Condition Details Condition Category Status Onset Date Resolution Date Last Treatment Date Treating Clinician Comments Source Epistaxis Problem Active [facility] Allergies, Adverse Reactions, Alerts Allergy Name Allergy Type Status Severity Reaction(s) Onset Date Inacti ve Date Treating Clinician Comments Source No Known Allergies DA Active U 2019-10-07 00:00:00 [facility] No Known Allergies DA Active U 2019-09-09 00:00:00 [facility] Social History Social Habit Start Date Stop Date Quantity Comments Source Sex Assigned At 1965 00:00:00 1965 00:00:[address] [facility] Medications Ordered Medication Name Filled Medication Name Start Date Stop Da te Current Medication? Ordering Clinician Indication Dosage Frequency Signature (SIG) Comments Components Source Carvedilol Carvedilol Yes 25 Twice A Day [facility] Lisinopril Lisinopril Yes 20 Daily [facility] Metformin Hcl Metformin Hcl Yes 500 Daily [facility] Tamsulosin Hcl (Flomax*) 0.4 Mg CAP Tamsulosin Hcl (Flomax*) 0.4 Mg C AP Yes .4 Daily [facility] Vital Signs Vital Name Observation Time Observation Value Comments Source Weight 2019-12-25 09:38:00 193 [lb_av] [facility] BMI (Body Mass Index) 2019-12-25 09:38:00 27.7 kg/m2 [facility] Weight 2019-12-23 10:48:00 193 [lb_av] [facility] BMI (Body Mass Index) 2019-12-23 10:48:00 27.7 kg/m2 [facility] Body Temperature 2019-10-23 12:00:00 97.6 [degF] [facility] Procedures Procedure Date / Time Performed Performing Clinician [facility] e US Abdomen limited 2019-10-22 00:00:00 YAJAIRA GRAMAJO [facility] TRANSFUSE NONAUT RED BLOOD CELLS IN PERIPH VEIN, PERC 2019-10-18 00:00:00 [facility] PERFORMANCE OF URINARY FILTRATION, <6 HRS/DAY 2019-10-18 00:00:0 0 [facility] CONTROL BLEEDING IN NASAL MUCOSA AND SOFT TISSUE, ENDO 2019-09-30 0 00:00:00 [facility] Computed tomography of chest without contrast 2019-07-12 00:00:0 0 CINDY ALVAREZ [facility] PERFORMANCE OF URINARY FILTRATION, <6 HRS/DAY 2019-07-12 00:00:0 [address] [facility] [address] of abdomen and pelvis without contrast 2019-07-12 00:00:00 [facility] Plan of Care Planned Activity Planned Date Details Comments Source Instructions Epistaxis - Adult [facility] Encounters Start Date/Time End Date/Time Encounter Type Admission Type Attendi [facility] Care Department Encounter ID Source 2019-12-25 09:16:00 2019-12-25 09:50:00 Departed Emergency Room [facility] [id number] [facility] Patients [facility] 2019-12-23 10:09:00 2019-12-23 11:07:00 Departed Emergency Room [facility] [id number] [facility] Patients [facility] 2019-10-18 22:29:00 2019-10-23 15:50:00 Discharged Inpatient 1 LOUIE SALVADOR [facility] [id number] [facility] 2019-09-24 15:47:00 2019-09-24 15:47:00 Outpatient [facility] [id number] [facility] 2019-08-07 07:54:00 2019-08-07 07:54:00 Registered Clinic [facility] [id number] [facility] 2019-07-12 08:43:00 2019-07-17 17:30:00 Discharged Inpatient 1 CINDY ALVAREZ [facility] [id number] [facility] 2019-06-17 13:10:00 2019-06-17 16:32:00 Departed Emergency Room [facility] [id number] [facility] Results Test Description Test Time Test Comments Results Result Comments Source Blood Culture 2019-10-25 11:35:00 Test Item Blood Culture (test code = 24788541) NO GROWTH AFTER 5 DAYS, FINAL REPORT [facility]eville[facility] [id number] 11:41:00* Test Item Value Reference Range Interpretation Comments Bedside Glucose (test code = 31057-1) 131 70-120 H Meter ID: [id number] Medical CenterPlatelet Morphology Wbmnywi7269-20-65 11:02:00* Test Item Value Reference Range Interpretation Comments Platelet Morphology Comment (test code = 35569-1) NO EDTA PLT CLUMP S SEEN [facility]evilleCapillary blood glucose measurement by glucometer (mass/volume)2019-10-23 10:59:00* Test Item Value Reference Range Interpretation Comments Bedside Glucose (test code = 82188-4) 131 70-120 Meter ID: [id number] [facility] Hospital[facility] glucose measurement by glucometer (mass/volume)2019-10-23 10:59:00* Test Item Value Reference Range Interpretation Comments Bedside Glucose (test code = 04086-4) 131 70-120 Meter ID: [id number] [facility] 2019-10-23 06:43:00* Test Item Value Reference Range Interpretation Comments Sodium Level (test code = 2951-2) 133 136-145 L [facility]evillePotassium Ihpog5410-99-88 06:43:00* Test Item Value Reference Range Interpretation Comments Potassium Level (test code = 2823-3) 3.9 3.5-5.1 [facility]evilleChloride Ghhdh7106-48-66 06:43:00* Test Item Value Reference Range Interpretation Comments Chloride Level (test code = 2075-0) 100 98-107 [facility]evilleCarbon Dioxide Jvckk2345-15-22 06:43:00* Test Item Value Reference Range Interpretation Comments Carbon Dioxide Level (test code = 2028-9) 24 22-29 [facility]evilleAnion Liu5376-52-71 06:43:00* Test Item Value Reference Range Interpretation Comments Anion Gap (test code = 20027-6) 12.9 8-16 [facility] Urea Eoukindt2078-28-73 06:43:00* Test Item Value Reference Range Interpretation Comments Blood Urea Nitrogen (test code = 3094-0) 54 7-26 H [facility]evilleCreatinine2020-03-25 06:43:00* Test Item Value Reference Range Interpretation Comments Creatinine (test code = 2160-0) 4.25 0.72-1.25 H [facility]evilleBUN/Creatinine Mwsti2774-64-32 06:43:00* Test Item Value Reference Range Interpretation Comments BUN/Creatinine Ratio (test code = 3097-3) 13 6-25 [facility]at Glomerular Filtration Rate 2019-10-23 06:43:00* Test Item Value Reference Range Interpretation Comments Estimat Glomerular Filtration Rate (test code = 918999243) 15 >60 L Ranges were taken from the National Kidney Disease Education Program and the [employer] [facility] [employer] literature.Reference ranges:60 or greater: Rijiry02-46 ( for 3 consecutive months): Chronic kidney disease 15 or less: Kidney failureCHI Midland Memorial HospitalGlucose Bujzj3574-13-24 06:43:00* Test Item Value Reference Range Interpretation Comments Glucose Level (test code = RKJ0253) 158 74-118 H [facility]evilleCalcium Bjuhe6618-70-69 06:43:00* Test Item Value Reference Range Interpretation Comments Calcium Level (test code = 59637-8) 7.8 8.4-10.2 L [facility]evilleTotal Qcocdjfxc0114-86-84 06:43:00* Test Item Value Reference Range Interpretation Comments Total Bilirubin (test code = 1975-2) 5.3 0.2-1.2 H [facility]evilleAspartate Amino Transf (AST/SGOT) 2019-10-23 06:43:00* Test Item Value Reference Range Interpretation Comments Aspartate Amino Transf (AST/SGOT) (test code = Aspartate Amino Transf (AST/SGOT)) 31 5-34 [facility]evilleAlanine Aminotransferase (ALT/SGPT) 2019-10-23 06:43:00* Test Item Value Reference Range Interpretation Comments Alanine Aminotransferase (ALT/SGPT) (test code = 1742-6) 36 0-55 [facility]evilleTotal Bebcths3284-65-62 06:43:00* Test Item Value Reference Range Interpretation Comments Total Protein (test code = 2885-2) 5.8 6.5-8.1 L [facility]evilleAlbumin2020-03-25 06:43:00* Test Item Value Reference Range Interpretation Comments Albumin (test code = 1751-7) 2.2 3.5-5.0 L [facility]evilleGlobulin2020-03-25 06:43:00* Test Item Value Reference Range Interpretation Comments Globulin (test code = 18812-2) 3.6 2.3-3.5 H [facility]evilleAlbumin/Globulin Rqgmy4152-20-93 06:43:00 * Test Item Value Reference Range Interpretation Comments Albumin/Globulin Ratio (test code = 1759-0) 0.6 0.8-2.0 L [facility]evilleAlkaline Abjlofdleue2991-74-41 06:43:00* Test Item Value Reference Range Interpretation Comments Alkaline Phosphatase (test code = 6768-6) 630 40-150 H [facility]evilleWhite Blood Nipdz0428-81-66 06:07:00* Test Item Value Reference Range Interpretation Comments White Blood Count (test code = 6690-2) 4.19 4.8-10.8 L [facility]evilleRed Blood Quqbx3200-56-50 06:07:00* Test Item Value Reference Range Interpretation Comments Red Blood Count (test code = 789-8) 2.55 4.3-5.7 L [facility]evilleHemoglobin2020-03-25 06:07:00* Test Item Value Reference Range Interpretation Comments Hemoglobin (test code = 63987-7) 8.3 14.0-18.0 L [facility]evilleHematocrit2020-03-25 06:07:00* Test Item Value Reference Range Interpretation Comments Hematocrit (test code = 4544-3) 25.0 38.2-49.6 L [facility]evilleMean Corpuscular Yysznt1605-88-18 06:07:00* Test Item Value Reference Range Interpretation Comments Mean Corpuscular Volume (test code = 787-2) 98.0 81-99 [facility]evilleMean Corpuscular Ygqwefbvqh7206-94-52 06:07:00* Test Item Value Reference Range Interpretation Comments Mean Corpuscular Hemoglobin (test code = 785-6) 32.5 28-32 H [facility]evilleMean Corpuscular Hemoglobin Concent 2019-10-23 06:07:00* Test Item Value Reference Range Interpretation Comments Mean Corpuscular Hemoglobin Concent (test code = 786-4) 33.2 31-35 [facility]evilleRed Cell Distribution Tfhqz5075-28-07 06:07:00* Test Item Value Reference Range Interpretation Comments Red Cell Distribution Width (test code = 75067-7) 17.8 11.7 -14.4 H [facility]evillePlatelet Rkugz2918-98-31 06:07:00* Test Item Value Reference Range Interpretation Comments Platelet Count (test code = 777-3) 86 140-360 L [facility]evilleNeutrophils (%) (Auto)2019-10-23 06:07:00 * Test Item Value Reference Range Interpretation Comments Neutrophils (%) (Auto) (test code = 02171-4) 76.2 38.7-80.0 [facility]evilleLymphocytes (%) (Auto)2019-10-23 06:07:00 * Test Item Value Reference Range Interpretation Comments Lymphocytes (%) (Auto) (test code = 736-9) 12.6 18.0-39.1 L [facility]evilleMonocytes (%) (Auto)2019-10-23 06:07:00* Test Item Value Reference Range Interpretation Comments Monocytes (%) (Auto) (test code = 5905-5) 8.6 4.4-11.3 [facility]evilleEosinophils (%) (Auto)2019-10-23 06:07:00 * Test Item Value Reference Range Interpretation Comments Eosinophils (%) (Auto) (test code = 713-8) 2.1 0.0-6.0 [facility]evilleBasophils (%) (Auto)2019-10-23 06:07:00* Test Item Value Reference Range Interpretation Comments Basophils (%) (Auto) (test code = 706-2) 0.0 0.0-1.0 [facility]evilleIM GRANULOCYTES %2019-10-23 06:07:00* Test Item Value Reference Range Interpretation Comments IM GRANULOCYTES % (test code = IM GRANULOCYTES %) 0.5 0.0- 1.0 [facility]evilleNeutrophils # (Auto)2019-10-23 06:07:00* Test Item Value Reference Range Interpretation Comments Neutrophils # (Auto) (test code = 751-8) 3.2 2.1-6.9 [facility]evilleLymphocytes # (Auto)2019-10-23 06:07:00* Test Item Value Reference Range Interpretation Comments Lymphocytes # (Auto) (test code = 90484-6) 0.5 1.0-3.2 L [facility]evilleMonocytes # (Auto)2019-10-23 06:07:00* Test Item Value Reference Range Interpretation Comments Monocytes # (Auto) (test code = 742-7) 0.4 0.2-0.8 [facility]Eosinophils # (Auto)2019-10-23 06:07:00* Test Item Value Reference Range Interpretation Comments Eosinophils # (Auto) (test code = 711-2) 0.1 0.0-0.4 [facility]evilleBasophils # (Auto)2019-10-23 06:07:00* Test Item Value Reference Range Interpretation Comments Basophils # (Auto) (test code = 704-7) 0.0 0.0-0.1 [facility]evilleAbsolute Immature Granulocyte (auto 2019-10-23 06:07:00* Test Item Value Reference Range Interpretation Comments Absolute Immature Granulocyte (auto (rupinder t code = Absolute Immature Granulocyte (auto) 0.02 0-0.1 [facility]evilleBlood leukocytes automated count (number/volume)2019-10-23 05:20:00* Test Item Value Reference Range Interpretation Comments White Blood Count (test code = 6690-2) 4.19 4.8-10.8 [facility]evilleB[facility] erythrocytes automated count (number/volume)2019-10-23 05:20:00* Test Item Value Reference Range Interpretation Comments Red Blood Count (test code = 789-8) 2.55 4.3-5.7 [facility]evilleBlood hemoglobin measurement (moles/volume)2019-10-23 05:20:00* Test Item Value Reference Range Interpretation Comments Hemoglobin (test code = 42939-8) 8.3 14.0-18.0 [facility]evilleAutomated blood hematocrit (volume fraction)2019-10-23 05:20:00* Test Item Value Reference Range Interpretation Comments Hematocrit (test code = 4544-3) 25.0 38.2-49.6 [facility]evilleAutomated erythrocyte mean corpuscular fcbdwl6542-80-17 05:20:00* Test Item Value Reference Range Interpretation Comments Mean Corpuscular Volume (test code = 787-2) 98.0 81-99 [facility]evilleAutomated erythrocyte mean corpuscular hemoglobin (mass per erythrocyte)2019-10-23 05:20:00* Test Item Value Reference Range Interpretation Comments Mean Corpuscular Hemoglobin (test code = 785-6) 32.5 28-32 [facility]evilleAutomated erythrocyte mean corpuscular hemoglobin concentration measurement (mass/volume)2019-10-23 05:20:00* Test Item Value Reference Range Interpretation Comments Mean Corpuscular Hemoglobin Concent (test code = 786-4) 33.2 31-35 [facility] BeevilleRDW FndCo-Ckj7225-11-25 05:20:00* Test Item Value Reference Range Interpretation Comments Red Cell Distribution Width (test code = 28728-0) 17.8 11.7 -14.4 [facility]evilleAutomated blood platelet count (count/volume)2019-10-23 05:20:00* Test Item Value Reference Range Interpretation Comments Platelet Count (test code = 777-3) 86 140-360 [facility]ed [facility] segmented neutrophil count as percentage of total puzwvumzpr6970-09-33 05:20:00* Test Item Value Reference Range Interpretation Comments Neutrophils (%) (Auto) (test code = 68886-8) 76.2 38.7-80.0 [facility]evilleAutnovant health new hanover orthopedic hospitaled blood lymphocyte count as percentage ot total zjoemnitnb6347-26-82 05:20:00* Test Item Value Reference Range Interpretation Comments Lymphocytes (%) (Auto) (test code = 736-9) 12.6 18.0-39.1 [facility]evilleAutomated blood monocyte count as percentage of total fgjcndetqg6469-36-42 05:20:00* Test Item Value Reference Range Interpretation Comments Monocytes (%) (Auto) (test code = 5905-5) 8.6 4.4-11.3 [facility]evilleAutomated blood eosinophil count as percentage of total gmfkyfirwb8621-01-39 05:20:00* Test Item Value Reference Range Interpretation Comments Eosinophils (%) (Auto) (test code = 713-8) 2.1 0.0-6.0 [facility] Hospitaled blood basophil count as percentage of total kmnrjhxsio2501-51-29 05:20:00* Test Item Value Reference Range Interpretation Comments Basophils (%) (Auto) (test code = 706-2) 0.0 0.0-1.0 [facility]evilleFluoroscopic procedure less than one hour fiojjwpr7913-71-17 05:20:00* Test Item Value Reference Range Interpretation Comments IM GRANULOCYTES % (test code = IM GRANULOCYTES %) 0.5 0.0- 1.0 [facility]evilleAutomated blood neutrophil count 2019-10-23 05:20:00* Test Item Value Reference Range Interpretation Comments Neutrophils # (Auto) (test code = 751-8) 3.2 2.1-6.9 [facility]evilleBlood lymphocytes count (number/volume) 2019-10-23 05:20:00* Test Item Value Reference Range Interpretation Comments Lymphocytes # (Auto) (test code = 64823-1) 0.5 1.0-3.2 [facility]evilleBlaustin [facility] monocytes automated count (number/volume)2019-10-23 05:20:00* Test Item Value Reference Range Interpretation Comments Monocytes # (Auto) (test code = 742-7) 0.4 0.2-0.8 [facility]evilleAutomated blood eosinophil count 2019-10-23 05:20:00* Test Item Value Reference Range Interpretation Comments Eosinophils # (Auto) (test code = 711-2) 0.1 0.0-0.4 [facility]evilleAutomated blood basophil count (count/volume)2019-10-23 05:20:00* Test Item Value Reference Range Interpretation Comments Basophils # (Auto) (test code = 704-7) 0.0 0.0-0.1 [facility]evilleFluoroscopic procedure less than one hour dnxgpozg7119-79-11 05:20:00* Test Item Value Reference Range Interpretation Comments Absolute Immature Granulocyte (auto (rupinder t code = Absolute Immature Granulocyte (auto) 0.02 0-0.1 [facility]evillePlatelet kcbacbbodk3573-30-61 05:20:00* Test Item Value Reference Range Interpretation Comments Platelet Morphology Comment (test code = 35020-9) See Comment NO EDTA PLT [facility] Southerum or plasma sodium measurement (moles/volume)2019-10-23 05:20:00* Test Item Value Reference Range Interpretation Comments Sodium Level (test code = 2951-2) 133 136-145 [facility] Southerum or plasma potassium measurement (moles/volume)2019-10-23 05:20:00* Test Item Value Reference Range Interpretation Comments Potassium Level (test code = 2823-3) 3.9 3.5-5.1 [facility] Southerum or plasma chloride measurement (moles/volume)2019-10-23 05:20:00* Test Item Value Reference Range Interpretation Comments Chloride Level (test code = 2075-0) 100 98-107 [facility] Southerum or plasma carbon dioxide, total measurement (moles/volume)2019-10-23 05:20:00* Test Item Value Reference Range Interpretation Comments Carbon Dioxide Level (test code = 2028-9) 24 22-29 [facility] Southerum or plasma anion qqh5253-35-44 05:20:00* Test Item Value Reference Range Interpretation Comments Anion Gap (test code = 16869-8) 12.9 8-16 [facility] Southerum or plasma urea nitrogen measurement (mass/volume)2019-10-23 05:20:00* Test Item Value Reference Range Interpretation Comments Blood Urea Nitrogen (test code = 3094-0) 54 7-26 [facility] Southerum or plasma creatinine measurement (mass/volume)2019-10-23 05:20:00* Test Item Value Reference Range Interpretation Comments Creatinine (test code = 2160-0) 4.25 0.72-1.25 [facility] Southerum or plasma urea nitrogen/creatinine mass lkawf1508-66-69 05:20:00* Test Item Value Reference Range Interpretation Comments BUN/Creatinine Ratio (test code = 3097-3) 13 6-25 [facility]evilleEstimated glomerular filtration rate (GFR) iezakplhslhjc9599-35-92 05:20:00* Test Item Value Reference Range Interpretation Comments Estimat Glomerular Filtration Rate (test code = 813215862) 15 >60 Ranges were taken from the National Kidney Disease Education Program and the [employer] [employer] literature.Reference ranges:60 or greater: Ytotmk49-71 ( for 3 consecutive months): Chronic kidney disease 15 or less: Kidney failureCHRISTUS Spohn Hospital BeevilleGlucose irwzrcoogff3525-00-96 05:20:00* Test Item Value Reference Range Interpretation Comments Glucose Level (test code = QVX9537) 158 74-118 [facility] Southerum or plasma calcium measurement (mass/volume)2019-10-23 05:20:00* Test Item Value Reference Range Interpretation Comments Calcium Level (test code = 78268-1) 7.8 8.4-10.2 [facility] Southerum or plasma total bilirubin measurement (mass/volume)2019-10-23 05:20:00* Test Item Value Reference Range Interpretation Comments Total Bilirubin (test code = 1975-2) 5.3 0.2-1.2 [facility]evilleFluoroscopic procedure less than one hour onymmmqy5237-99-27 05:20:00* Test Item Value Reference Range Interpretation Comments Aspartate Amino Transf (AST/SGOT) (test code = Aspartate Amino Transf (AST/SGOT)) 31 5-34 [facility] Southerum or plasma alanine aminotransferase measurement (enzymatic activity/volume)2019-10-23 05:20:00* Test Item Value Reference Range Interpretation Comments Alanine Aminotransferase (ALT/SGPT) (test code = 1742-6) 36 0-55 [facility] Southerum or plasma protein measurement (mass/volume)2019-10-23 05:20:00* Test Item Value Reference Range Interpretation Comments Total Protein (test code = 2885-2) 5.8 6.5-8.1 [facility] Southerum or plasma albumin measurement (mass/volume)2019-10-23 05:20:00* Test Item Value Reference Range Interpretation Comments Albumin (test code = 1751-7) 2.2 3.5-5.0 [facility]evillePlasma globulin measurement (mass/volume) 2019-10-23 05:20:00* Test Item Value Reference Range Interpretation Comments Globulin (test code = 86708-8) 3.6 2.3-3.5 [facility] Southerum or plasma albumin/globulin mass kauxw9196-27-76 05:20:00* Test Item Value Reference Range Interpretation Comments Albumin/Globulin Ratio (test code = 1759-0) 0.6 0.8-2.0 [facility] Southerum or plasma alkaline phosphatase measurement (enzymatic activity/volume)2019-10-23 05:20:00* Test Item Value Reference Range Interpretation Comments Alkaline Phosphatase (test code = 6768-6) 630 40-150 [facility]evilleBlood leukocytes automated count (number/volume)2019-10-23 05:20:00* Test Item Value Reference Range Interpretation Comments White Blood Count (test code = 6690-2) 4.19 4.8-10.8 [facility]evilleBlood erythrocytes automated count (number/volume)2019-10-23 05:20:00* Test Item Value Reference Range Interpretation Comments Red Blood Count (test code = 789-8) 2.55 4.3-5.7 [facility]evilleBlood hemoglobin measurement (moles/volume)2019-10-23 05:20:00* Test Item Value Reference Range Interpretation Comments Hemoglobin (test code = 60840-1) 8.3 14.0-18.0 [facility] BeevilleAutomated blood hematocrit (volume fraction)2019-10-23 05:20:00* Test Item Value Reference Range Interpretation Comments Hematocrit (test code = 4544-3) 25.0 38.2-49.6 [facility] BeevilleAutomated erythrocyte mean corpuscular bcqqrc6999-64-04 05:20:00* Test Item Value Reference Range Interpretation Comments Mean Corpuscular Volume (test code = 787-2) 98.0 81-99 [facility] BeevilleAutomated erythrocyte mean corpuscular hemoglobin (mass per erythrocyte)2019-10-23 05:20:00* Test Item Value Reference Range Interpretation Comments Mean Corpuscular Hemoglobin (test code = 785-6) 32.5 28-32 [facility] BeevilleAutomated erythrocyte mean corpuscular hemoglobin concentration measurement (mass/volume)2019-10-23 05:20:00* Test Item Value Reference Range Interpretation Comments Mean Corpuscular Hemoglobin Concent (test code = 786-4) 33.2 31-35 [facility] BeevilleRDW KyjSp-Wdx4074-23-25 05:20:00* Test Item Value Reference Range Interpretation Comments Red Cell Distribution Width (test code = 60324-4) 17.8 11.7 -14.4 [facility] BeevilleAutomated blood platelet count (count/volume)2019-10-23 05:20:00* Test Item Value Reference Range Interpretation Comments Platelet Count (test code = 777-3) 86 140-360 [facility]evilleAutomated blood segmented neutrophil count as percentage of total ulpkthciwp6620-42-95 05:20:00* Test Item Value Reference Range Interpretation Comments Neutrophils (%) (Auto) (test code = 01576-0) 76.2 38.7-80.0 [facility] BeevilleAutomated blood lymphocyte count as percentage ot total houukyhehj3213-48-23 05:20:00* Test Item Value Reference Range Interpretation Comments Lymphocytes (%) (Auto) (test code = 736-9) 12.6 18.0-39.1 [facility]evilleAutomated blood monocyte count as percentage of total fhtwcshxrn3038-00-25 05:20:00* Test Item Value Reference Range Interpretation Comments Monocytes (%) (Auto) (test code = 5905-5) 8.6 4.4-11.3 [facility]evilleAutomated blood eosinophil count as percentage of total vkaywitedb8281-83-99 05:20:00* Test Item Value Reference Range Interpretation Comments Eosinophils (%) (Auto) (test code = 713-8) 2.1 0.0-6.0 [facility]evilleAutomated blood basophil count as percentage of total gtwlnxfnps8867-05-19 05:20:00* Test Item Value Reference Range Interpretation Comments Basophils (%) (Auto) (test code = 706-2) 0.0 0.0-1.0 [facility] BeevilleFluoroscopic procedure less than one hour soiwugld2355-72-66 05:20:00* Test Item Value Reference Range Interpretation Comments IM GRANULOCYTES % (test code = IM GRANULOCYTES %) 0.5 0.0- 1.0 [facility]evilleAutomated blood neutrophil count 2019-10-23 05:20:00* Test Item Value Reference Range Interpretation Comments Neutrophils # (Auto) (test code = 751-8) 3.2 2.1-6.9 [facility]evilleBlood lymphocytes count (number/volume) 2019-10-23 05:20:00* Test Item Value Reference Range Interpretation Comments Lymphocytes # (Auto) (test code = 57111-7) 0.5 1.0-3.2 [facility]evilleBlood monocytes automated count (number/volume)2019-10-23 05:20:00* Test Item Value Reference Range Interpretation Comments Monocytes # (Auto) (test code = 742-7) 0.4 0.2-0.8 [facility]evilleAutomated blood eosinophil count 2019-10-23 05:20:00* Test Item Value Reference Range Interpretation Comments Eosinophils # (Auto) (test code = 711-2) 0.1 0.0-0.4 [facility]evilleAutomated blood basophil count (count/volume)2019-10-23 05:20:00* Test Item Value Reference Range Interpretation Comments Basophils # (Auto) (test code = 704-7) 0.0 0.0-0.1 [facility] BeevilleFluoroscopic procedure less than one hour ppttcbtc9883-28-29 05:20:00* Test Item Value Reference Range Interpretation Comments Absolute Immature Granulocyte (auto (rupinder t code = Absolute Immature Granulocyte (auto) 0.02 0-0.1 [facility] BeevillePlatelet srfdskwiva4253-66-58 05:20:00* Test Item Value Reference Range Interpretation Comments Platelet Morphology Comment (test code = 60605-2) See Comment NO EDTA PL[facility] Southerum or plasma sodium measurement (moles/volume)2019-10-23 05:20:00* Test Item Value Reference Range Interpretation Comments Sodium Level (test code = 2951-2) 133 136-145 [facility] Southerum or plasma potassium measurement (moles/volume)2019-10-23 05:20:00* Test Item Value Reference Range Interpretation Comments Potassium Level (test code = 2823-3) 3.9 3.5-5.1 [facility] Southerum or plasma chloride measurement (moles/volume)2019-10-23 05:20:00* Test Item Value Reference Range Interpretation Comments Chloride Level (test code = 2075-0) 100 98-107 [facility] Southerum or plasma carbon dioxide, total measurement (moles/volume)2019-10-23 05:20:00* Test Item Value Reference Range Interpretation Comments Carbon Dioxide Level (test code = 2028-9) 24 22-29 [facility] Southerum or plasma anion nqk1035-68-82 05:20:00* Test Item Value Reference Range Interpretation Comments Anion Gap (test code = 52144-6) 12.9 8-16 [facility] Southerum or plasma urea nitrogen measurement (mass/volume)2019-10-23 05:20:00* Test Item Value Reference Range Interpretation Comments Blood Urea Nitrogen (test code = 3094-0) 54 7-26 [facility] Southerum or plasma creatinine measurement (mass/volume)2019-10-23 05:20:00* Test Item Value Reference Range Interpretation Comments Creatinine (test code = 2160-0) 4.25 0.72-1.25 [facility] Southerum or plasma urea nitrogen/creatinine mass diods4694-08-79 05:20:00* Test Item Value Reference Range Interpretation Comments BUN/Creatinine Ratio (test code = 3097-3) 13 6-25 [facility] BeevilleEstimated glomerular filtration rate (GFR) xhvclkucwzvkp2080-33-80 05:20:00* Test Item Value Reference Range Interpretation Comments Estimat Glomerular Filtration Rate (test code = 571121403) 15 >60 Ranges were taken from the National Kidney Disease Education Program and the [employer] [facility] [employer] literature.Reference ranges:60 or greater: Ycazpr92-32 ( for 3 consecutive months): Chronic kidney disease 15 or less: Kidney failureCHRISTUS Spohn Hospital BeevilleGlucose xkkxfkaoyku3019-57-42 05:20:00* Test Item Value Reference Range Interpretation Comments Glucose Level (test code = EIN5840) 158 74-118 [facility] Southerum or plasma calcium measurement (mass/volume)2019-10-23 05:20:00* Test Item Value Reference Range Interpretation Comments Calcium Level (test code = 19063-3) 7.8 8.4-10.2 [facility] Southerum or plasma total bilirubin measurement (mass/volume)2019-10-23 05:20:00* Test Item Value Reference Range Interpretation Comments Total Bilirubin (test code = 1975-2) 5.3 0.2-1.2 [facility] BeevilleFluoroscopic procedure less than one hour fzcutknp9168-02-11 05:20:00* Test Item Value Reference Range Interpretation Comments Aspartate Amino Transf (AST/SGOT) (test code = Aspartate Amino Transf (AST/SGOT)) 31 5-34 [facility] Southerum or plasma alanine aminotransferase measurement (enzymatic activity/volume)2019-10-23 05:20:00* Test Item Value Reference Range Interpretation Comments Alanine Aminotransferase (ALT/SGPT) (test code = 1742-6) 36 0-55 [facility] Southerum or plasma protein measurement (mass/volume)2019-10-23 05:20:00* Test Item Value Reference Range Interpretation Comments Total Protein (test code = 2885-2) 5.8 6.5-8.1 [facility] Southerum or plasma albumin measurement (mass/volume)2019-10-23 05:20:00* Test Item Value Reference Range Interpretation Comments Albumin (test code = 1751-7) 2.2 3.5-5.0 [facility] BeevillePlasma globulin measurement (mass/volume) 2019-10-23 05:20:00* Test Item Value Reference Range Interpretation Comments Globulin (test code = 13427-7) 3.6 2.3-3.5 [facility] Southerum or plasma albumin/globulin mass ybugz7798-92-70 05:20:00* Test Item Value Reference Range Interpretation Comments Albumin/Globulin Ratio (test code = 1759-0) 0.6 0.8-2.0 [facility] Southerum or plasma alkaline phosphatase measurement (enzymatic activity/volume)2019-10-23 05:20:00* Test Item Value Reference Range Interpretation Comments Alkaline Phosphatase (test code = 6768-6) 630 40-150 [facility] BeevilleAlkaline Vvqlimffyde8547-42-18 03:42:00* Test Item Value Reference Range Interpretation Comments Alkaline Phosphatase (test code = 6768-6) 865 39-117 H [facility] BeevilleAlkaline Phosphatase Iso-Intestine 2019-10-23 03:42:00* Test Item Value Reference Range Interpretation Comments Alkaline Phosphatase Iso-Intestine (test code = 73482-9) 0 0-18 Performed at: - [facility] [address] [id number] Director: Roe Contreras MD, Phone: [phone] at: - [facility] [address] [place] [id number] Director: Dasha Lr MD, Ph one: [phone] Spohn Hospital BeevilleAlkaline Phosphatase Wsr-Mupu1049-91-25 03:42:00* Test Item Value Reference Range Interpretation Comments Alkaline Phosphatase Iso-Bone (test code = 16056-2) 21 12 -68 [facility] BeevilleAlkaline Phosphatase Nix-Ijnix5667-85-25 03:42:00* Test Item Value Reference Range Interpretation Comments Alkaline Phosphatase Iso-Liver (test code = 95491-5) 79 1 3-88 [facility] BeevilleHepatitis Be Memazmnt9909-09-34 22:13:00 * Test Item Value Reference Range Interpretation Comments Hepatitis Be Antibody (test code = 63694-3) Negative Negative Performed at: [address] [id number] [employer] Integrator: Dasha Lr MD, Phone: [phone] Spohn Hospital BeevilleHepatitis B Core Total Qxulmqau0957-79-37 22:13:00* Test Item Value Reference Range Interpretation Comments Hepatitis B Core Total Antibody (test code = 07168-3) Negative Negative [facility] B Surface Ymqityq1863-18-64 22:13:00* Test Item Value Reference Range Interpretation Comments Hepatitis B Surface Antigen (test code = 5196-1) Negative Negat [place] [facility] B Core IgM Xqjslcdj1776-27-40 22:13:00* Test Item Value Reference Range Interpretation Comments Hepatitis B Core IgM Antibody (test code = 71391-3) Negative Ne gative Performed at: [facility] [address] [id number] Director: Roe Contreras MD, Phone: [phone] Spohn Hospital BeevilleAnti-Mitochondrial Ggqccpsv5892-04-29 22:13:00* Test Item Value Reference Range Interpretation Comments Anti-Mitochondrial Antibody (test code = 71846-1) <20.0 0.0- 20.0 Negative 0.0 - 20.0 Equivocal 20.1 - 24.9 Positive > 24.9Mitochondrial (M2) Antibodies are found in 90-96% ofpatients with primary bi liary cirrhosis.Performed at: [address] [id number] Director: Dasha Lr MD, Phone: [phone] Spohn Hospital BeevilleUS ABDOMEN UNBUSYL0500-98-20 08:51:00 [place] [address] Patient Name: VIOLETTE LAMB MR #: [id number] : 1965 Age/Sex: 54/M Req #: [id number] [facility] Physician: LOUIE SALVADOR MD Ordered by: YAJAIRA GRAMAJO MD Report #: [id number] Location: MED/SURG2 Room/Bed: [facility] Procedure: 032 4-0001 US/US ABDOMEN LIMITED Exam Date: 10/22/19 Josiah alicea Time: 0745 REPORT STATUS: Signed TECHNIQUE: Grayscale [...] on 10/22/19857 COPY TO: YAJAIRA GRAMAJO MD Bvvil-2-Yhjdfpjziay 2019-10-21 15:56:00* Test Item Value Reference Range Interpretation Comments Nglwv-9-Xdwloqbwlno (test code = 1825-9) 171 101-187 Performed at: [facility] [facility] [address], [place], [place] [id number] 4Lab Director: RACHELLE Singh MD, Phone: [phone] Spohn Hospital BeevilleCeruloplasmin2020-03-23 15:56:00* Test Item Value Reference Range Interpretation Comments Ceruloplasmin (test code = 2064-4) 41.0 16.0-31.0 H [facility] BeevilleDirect Onxtiiseb7889-18-61 06:00:00* Test Item Value Reference Range Interpretation Comments Direct Bilirubin (test code = 38801-4) 6.8 0.0-0.5 H [facility] Southerum or plasma conjugated bilirubin measurement (mass/volume)2019-10-21 05:15:00* Test Item Value Reference Range Interpretation Comments Direct Bilirubin (test code = 75578-6) 6.8 0.0-0.5 [facility] Southerum or plasma conjugated bilirubin measurement (mass/volume)2019-10-21 05:15:00* Test Item Value Reference Range Interpretation Comments Direct Bilirubin (test code = 19108-9) 6.8 0.0-0.5 [facility] BeevilleBlood tewuxkh4418-15-03 11:35:00* Test Item Value Reference Range Interpretation Comments Blood Culture (test code = 95227154) NO GROWTH AFTER 5 DAYS, FINAL REPORT [facility] BeevilleBlood vvaoaut2324-70-84 11:35:00* Test Item Value Reference Range Interpretation Comments Blood Culture (test code = 33277658) NO GROWTH AFTER 5 DAYS, FINAL REPORT [facility] BeevilleChlamydia pneumoniae DNA (PCR)2019-10-20 05:32:00* Test Item Value Reference Range Interpretation Comments Chlamydia pneumoniae DNA (PCR) (test code = Chlamydia pneumoniae DNA (PCR)) NOT DETECTED NOT DETECT [facility] BeevilleInfluenza Type A (RT-PCR)2019-10-20 05:32:00* Test Item Value Reference Range Interpretation Comments Influenza Type A (RT-PCR) (test code = 514379969) NOT DETECTED NOT DETECT [facility] ([facility])2019-10-20 05:32:00* Test Item Value Reference Range Interpretation Comments Mycoplasma pneumoniae (PCR) (test code = Mycoplasma pn eumoniae (PCR)) NOT DETECTED NOT DETECT [facility] HospitalInfluenza Type B (RT-PCR)2019-10-20 05:32:00* Test Item Value Reference Range Interpretation Comments Influenza Type B (RT-PCR) (test code = 247895538) NOT DETECTED NOT DETECT [facility] HospitalRespiratory Syncytial Virus (PCR) 2019-10-20 05:32:00* Test Item Value Reference Range Interpretation Comments Respiratory Syncytial Virus (PCR) (test code = 536444491) NO T DETECTED NOT DETECT [facility] HospitalBordetella pertussis DNA (PCR)2019-10-20 05:32:00* Test Item Value Reference Range Interpretation Comments Bordetella pertussis DNA (PCR) (test code = 779779373) NOT DETEC SHAGGY NOT DETECT [facility] HospitalParainfluenza Type 1 (PCR)2019-10-20 05:32:00* Test Item Value Reference Range Interpretation Comments Parainfluenza Type 1 (PCR) (test code = 428612782) NOT DETECTED NOT DETECT [facility] HospitalParainfluenza Type 2 (PCR)2019-10-20 05:32:00* Test Item Value Reference Range Interpretation Comments Parainfluenza Type 2 (PCR) (test code = 184292793) NOT DETECTED NOT DETECT [facility] 3 (PCR)2019-10-20 05:32:00* Test Item Value Reference Range Interpretation Comments Parainfluenza Type 3 (PCR) (test code = 960765388) NOT DETECTED NOT DETECT [facility]Parainfluenza Type 4 (PCR)2019-10-20 05:32:00* Test Item Value Reference Range Interpretation Comments Parainfluenza Type 4 (PCR) (test code = Parainfluenza Type 4 (PCR)) NOT DETECTED NOT DETECT [facility]evilleRhinovirus (PCR)2019-10-20 05:32:00* Test Item Value Reference Range Interpretation Comments Rhinovirus (PCR) (test code = 227435169) NOT DETECTED NOT DETECT [facility] BeevilleHuman Metapneumovirus (PCR)2019-10-20 05:32:00* Test Item Value Reference Range Interpretation Comments Human Metapneumovirus (PCR) (test code = 657401068) DETECTED NO T DETECT ABNORMALCHRISTUS Spohn Hospital BeevilleAdenovirus (PCR)2019-10-20 05:32:00* Test Item Value Reference Range Interpretation Comments Adenovirus (PCR) (test code = 633051066) NOT DETECTED NOT DETECT [facility]evilleCoronavirus Type HKU1 (PCR)2019-10-20 05:32:00* Test Item Value Reference Range Interpretation Comments Coronavirus Type HKU1 (PCR) (test code = Coronavirus T ype HKU1 (PCR)) NOT DETECTED NOT DETECT [facility]evilleCoronavirus Type NL63 (PCR)2019-10-20 05:32:00* Test Item Value Reference Range Interpretation Comments Coronavirus Type NL63 (PCR) (test code = Coronavirus T ype NL63 (PCR)) NOT DETECTED NOT DETECT [facility]evilleCoronavirus Type OC43 (PCR)2019-10-20 05:32:00* Test Item Value Reference Range Interpretation Comments Coronavirus Type OC43 (PCR) (test code = Coronavirus T ype OC43 (PCR)) NOT DETECTED NOT DETECT [facility]evilleCoronavirus Type 229E (PCR)2019-10-20 05:32:00* Test Item Value Reference Range Interpretation Comments Coronavirus Type 229E (PCR) (test code = Coronavirus T ype 229E (PCR)) NOT DETECTED NOT DETECT Test performed at [facility] [place] [address] 7 2245RESULTS HAVE BEEN CALLED [facility] THE [facility] Center[facility] ([facility])2019-10-19 10:26:00 [facility] [address] [place] [address] Patient Name: VIOLETTE LAMB MR #: [id number] : 1965 Age/Sex: 54/M Req #: [id number] Adm Physician: LOUIE SALVADOR MD Ordered by: LOUIE SALVADOR MD Report #: [id number] Location: [facility] Room/Bed: [place] [address] Procedure: [id number] -[id number] DX/CHEST SINGLE (PORTABLE) Exam [...] 1028 COPY TO: LOUIE SALVADOR MD Influenza Virus Types A,B Zredbbu0679-14-29 09:17:00* Test Item Value Reference Range Interpretation Comments Influenza Virus Types A,B Antigen (test code = 71030-9) NEGATIVE NEGATIVE [facility] BeevilleInfluenza virus A and B antigen identification by wzwdzckivqfjvorbkx4186-31-07 08:45:00* Test Item Value Reference Range Interpretation Comments Influenza Virus Types A,B Antigen (test code = 81510-6) NEGATIVE NEGATIVE [facility] BeevilleFluoroscopic procedure less than one hour lpcajryx7705-35-76 08:45:00* Test Item Value Reference Range Interpretation Comments Chlamydia pneumoniae DNA (PCR) (test code = Chlamydia pneumoniae DNA (PCR)) NOT DETECTED NOT DETECT [facility]evilleRespiratory virus yturx7631-03-01 08:45:00* Test Item Value Reference Range Interpretation Comments Influenza Type A (RT-PCR) (test code = 920994236) NOT DETECTED NOT DETECT [facility] BeevilleFluoroscopic procedure less than one hour xkyaayot6223-18-91 08:45:00* Test Item Value Reference Range Interpretation Comments Mycoplasma pneumoniae (PCR) (test code = Mycoplasma pn eumoniae (PCR)) NOT DETECTED NOT DETECT [facility]evilleRespiratory virus jrxxe2982-43-08 08:45:00* Test Item Value Reference Range Interpretation Comments Influenza Type B (RT-PCR) (test code = 813287277) NOT DETECTED NOT DETECT [facility] BeevilleRespiratory virus ouuop7007-26-72 08:45:00* Test Item Value Reference Range Interpretation Comments Respiratory Syncytial Virus (PCR) (test code = 507201843) NO T DETECTED NOT DETECT [facility] BeevilleRespiratory virus hqdsx1976-41-02 08:45:00* Test Item Value Reference Range Interpretation Comments Bordetella pertussis DNA (PCR) (test code = 530779183) NOT DETEC SHAGGY NOT DETECT [facility] BeevilleRespiratory virus bcqdu4184-93-86 08:45:00* Test Item Value Reference Range Interpretation Comments Parainfluenza Type 1 (PCR) (test code = 309674747) NOT DETECTED NOT DETECT [facility] HospitalRespiratory virus qycns5718-94-36 08:45:00* Test Item Value Reference Range Interpretation Comments Parainfluenza Type 2 (PCR) (test code = 241614504) NOT DETECTED NOT DETECT [facility]evilleRespiratory virus lvwsf0850-89-05 08:45:00* Test Item Value Reference Range Interpretation Comments Parainfluenza Type 3 (PCR) (test code = 691882366) NOT DETECTED NOT DETECT [facility] BeevilleFluoroscopic procedure less than one hour vfqfxful9738-25-06 08:45:00* Test Item Value Reference Range Interpretation Comments Parainfluenza Type 4 (PCR) (test code = Parainfluenza Type 4 (PCR)) NOT DETECTED NOT DETECT [facility]evilleRespiratory virus xowij3111-61-12 08:45:00* Test Item Value Reference Range Interpretation Comments Rhinovirus (PCR) (test code = 058282940) NOT DETECTED NOT DETECT [facility] BeevilleRespiratory virus ksvvl4914-47-19 08:45:00* Test Item Value Reference Range Interpretation Comments Human Metapneumovirus (PCR) (test code = 337570284) DETECTED NO T DETECT ABNORMALCHRISTUS Spohn Hospital BeevilleRespiratory virus lyeuq6629-22-21 08:45:00* Test Item Value Reference Range Interpretation Comments Adenovirus (PCR) (test code = 373285461) NOT DETECTED NOT DETECT [facility] BeevilleFluoroscopic procedure less than one hour tzxokzum4711-98-09 08:45:00* Test Item Value Reference Range Interpretation Comments Coronavirus Type 229E (PCR) (test code = Coronavirus T ype 229E (PCR)) NOT DETECTED NOT DETECT Test performed at [place] [address]RESULTS HAVE BEEN CALLED TO THE PHYSICIANCHRISTUS Spohn Hospital BeevilleFluoroscopic procedure less than one hour muipmqdt5726-22-27 08:45:00* Test Item Value Reference Range Interpretation Comments Coronavirus Type HKU1 (PCR) (test code = Coronavirus T ype HKU1 (PCR)) NOT DETECTED NOT DETECT [facility] BeevilleFluoroscopic procedure less than one hour qaypupxt7779-18-93 08:45:00* Test Item Value Reference Range Interpretation Comments Coronavirus Type NL63 (PCR) (test code = Coronavirus T ype NL63 (PCR)) NOT DETECTED NOT DETECT [facility] BeevilleFluoroscopic procedure less than one hour qyvpttaw6379-07-85 08:45:00* Test Item Value Reference Range Interpretation Comments Coronavirus Type OC43 (PCR) (test code = Coronavirus T ype OC43 (PCR)) NOT DETECTED NOT DETECT [facility] BeevilleInfluenza virus A and B antigen identification by ngmwozcitxodgepelh5556-97-88 08:45:00* Test Item Value Reference Range Interpretation Comments Influenza Virus Types A,B Antigen (test code = 74712-4) NEGATIVE NEGATIVE [facility] BeevilleFluoroscopic procedure less than one hour topamvlx8700-63-06 08:45:00* Test Item Value Reference Range Interpretation Comments Chlamydia pneumoniae DNA (PCR) (test code = Chlamydia pneumoniae DNA (PCR)) NOT DETECTED NOT DETECT [facility]evilleRespiratory virus gdiko4751-19-20 08:45:00* Test Item Value Reference Range Interpretation Comments Influenza Type A (RT-PCR) (test code = 625214982) NOT DETECTED NOT DETECT [facility] BeevilleFluoroscopic procedure less than one hour qjxmfgwn8827-30-29 08:45:00* Test Item Value Reference Range Interpretation Comments Mycoplasma pneumoniae (PCR) (test code = Mycoplasma pn eumoniae (PCR)) NOT DETECTED NOT DETECT [facility] BeevilleRespiratory virus xgmcv2045-23-80 08:45:00* Test Item Value Reference Range Interpretation Comments Influenza Type B (RT-PCR) (test code = 054173114) NOT DETECTED NOT DETECT [facility] BeevilleRespiratory virus gthgp6606-84-33 08:45:00* Test Item Value Reference Range Interpretation Comments Respiratory Syncytial Virus (PCR) (test code = 073717133) NO T DETECTED NOT DETECT [facility] BeevilleRespiratory virus zmnuv6879-91-20 08:45:00* Test Item Value Reference Range Interpretation Comments Bordetella pertussis DNA (PCR) (test code = 584824696) NOT DETEC SHAGGY NOT DETECT [facility] BeevilleRespiratory virus aduxn8883-83-19 08:45:00* Test Item Value Reference Range Interpretation Comments Parainfluenza Type 1 (PCR) (test code = 086247652) NOT DETECTED NOT DETECT [facility] BeevilleRespiratory virus ynxhy4407-17-50 08:45:00* Test Item Value Reference Range Interpretation Comments Parainfluenza Type 2 (PCR) (test code = 592367090) NOT DETECTED NOT DETECT [facility] BeevilleRespiratory virus zwiib6576-04-76 08:45:00* Test Item Value Reference Range Interpretation Comments Parainfluenza Type 3 (PCR) (test code = 290419915) NOT DETECTED NOT DETECT [facility] BeevilleFluoroscopic procedure less than one hour qxsvcayv8042-35-35 08:45:00* Test Item Value Reference Range Interpretation Comments Parainfluenza Type 4 (PCR) (test code = Parainfluenza Type 4 (PCR)) NOT DETECTED NOT DETECT [facility] BeevilleRespiratory virus ouige1646-51-21 08:45:00* Test Item Value Reference Range Interpretation Comments Rhinovirus (PCR) (test code = 638048996) NOT DETECTED NOT [facility]ECT [facility]evilleRespiratory virus tvzcd5611-10-49 08:45:00* Test Item Value Reference Range Interpretation Comments Human Metapneumovirus (PCR) (test code = 454496301) DETECTED NO T DETECT ABNORMALCHRISTUS Spohn Hospital BeevilleRespiratory virus fjidj4967-06-18 08:45:00* Test Item Value Reference Range Interpretation Comments Adenovirus (PCR) (test code = 217251607) NOT DETECTED NOT DETECT [facility] BeevilleFluoroscopic procedure less than one hour axogixbn9582-22-65 08:45:00* Test Item Value Reference Range Interpretation Comments Coronavirus Type 229E (PCR) (test code = Coronavirus T ype 229E (PCR)) NOT DETECTED NOT DETECT Test performed at [place] [address] 22[address]RESULTS HAVE BEEN CALLED TO THE PHYSICIANCHRISTUS Spohn Hospital BeevilleFluoroscopic procedure less than one hour cntlmzvk0600-28-04 08:45:00* Test Item Value Reference Range Interpretation Comments Coronavirus Type HKU1 (PCR) (test code = Coronavirus T ype HKU1 (PCR)) NOT DETECTED NOT DETECT [facility] BeevilleFluoroscopic procedure less than one hour idbmltyt4812-12-03 08:45:00* Test Item Value Reference Range Interpretation Comments Coronavirus Type NL63 (PCR) (test code = Coronavirus T ype NL63 (PCR)) NOT DETECTED NOT DETECT [facility] BeevilleFluoroscopic procedure less than one hour slebgmek7564-89-98 08:45:00* Test Item Value Reference Range Interpretation Comments Coronavirus Type OC43 (PCR) (test code = Coronavirus T ype OC43 (PCR)) NOT DETECTED NOT DETECT [facility] BeevilleDifferential Total Cells Counted 2019-10-19 08:02:00* Test Item Value Reference Range Interpretation Comments Differential Total Cells Counted (test code = Differen tial Total Cells Counted) 100 [facility] BeevilleNeutrophils % (Manual)2019-10-19 08:02:00 * Test Item Value Reference Range Interpretation Comments Neutrophils % (Manual) (test code = 82520-2) 83 40-74 H [facility] BeevilleLymphocytes % (Manual)2019-10-19 08:02:00 * Test Item Value Reference Range Interpretation Comments Lymphocytes % (Manual) (test code = 737-7) 6 19-48 L [facility]evilleMonocytes % (Manual)2019-10-19 08:02:00* Test Item Value Reference Range Interpretation Comments Monocytes % (Manual) (test code = 744-3) 6 3.4-9.0 [facility]evilleEosinophils % (Manual)2019-10-19 08:02:00 * Test Item Value Reference Range Interpretation Comments Eosinophils % (Manual) (test code = 714-6) 3 0-7 [facility]evilleBasophils % (Manual)2019-10-19 08:02:00* Test Item Value Reference Range Interpretation Comments Basophils % (Manual) (test code = 07304-3) 1 0-1.5 [facility]evilleMyelocytes %2019-10-19 08:02:00* Test Item Value Reference Range Interpretation Comments Myelocytes % (test code = 749-2) 1 0-0 H [facility] BeevillePlatelet Nqzkjyoc9986-62-87 08:02:00* Test Item Value Reference Range Interpretation Comments Platelet Estimate (test code = 30406-6) MODERATELY DECREASED [facility] BeevilleAnisocytosis2020-03-21 08:02:00* Test Item Value Reference Range Interpretation Comments Anisocytosis (test code = 702-1) MODE [facility] BeevilleMacrocytosis2020-03-21 08:02:00* Test Item Value Reference Range Interpretation Comments Macrocytosis (test code = 738-5) SLIGHT [facility] BeevilleRed Cell Morphology Hosedjn9413-43-05 08:02:00* Test Item Value Reference Range Interpretation Comments Red Cell Morphology Comment (test code = 6742-1) ABNORMAL [facility] BeevilleProthrombin Uypr0909-69-74 06:23:00* Test Item Value Reference Range Interpretation Comments Prothrombin Time (test code = 5902-2) 13.8 11.9-14.5 [facility] BeevilleProthromb Time International Ratio 2019-10-19 06:23:00* Test Item Value Reference Range Interpretation Comments Prothromb Time International Ratio (test code = 6301-6) 1.00 Oral Anticoagulant Therapy INR Values:1. Low Intensity Therapy 1.5 - 2.02 . Moderate Intensity Therapy 2.0 - 3.03. High Intensity Therapy(1) 2.5 - 3. 54. High Intensity Therapy(2) 3.0 - 4.05. Panic Value INR > 5.0 [facility]evilleCHEST SINGLE (PORTABLE)2019-10-19 06:04:00 [place] [address] Patient Name: VIOLETTE LAMB MR #: [id number] : 1965 Age/Sex: 54/M Req #: [id number] Adm Physician: LOUIE SALVADOR MD Ordered by: LOUIE SALVADOR MD Report #: [id number] Location: MED/SURG Room/Bed: [facility] Procedure: [id number] -[id number] DX/CHEST SINGLE (PORTABLE) [...] free air under the diaphragm. Metallic wire project ed on the superior left hemithorax, likely outside the patient. IMPRESSIO N: Bilateral pulmonary venous congestion, unchanged. Signed by: Dr. Talha Villanueva M.D. on 10/19/2019 6:10 AM Dictated By: MYRA Ray MD, MD 9 Transc ribed By: DARRON on 10/19/19609 COPY TO: LOUIE SALVADOR MD Fluoroscopic procedure less than one hour ybtfqzfh1588-15-30 05:30:00* Test Item Value Reference Range Interpretation Comments Differential Total Cells Counted (test code = Differen tial Total Cells Counted) 100 [facility] blood neutrophils/100 leukocytes 2019-10-19 05:30:00* Test Item Value Reference Range Interpretation Comments Neutrophils % (Manual) (test code = 93808-0) 83 40-74 [facility] blood lymphocytes/100 leukocytes 2019-10-19 05:30:00* Test Item Value Reference Range Interpretation Comments Lymphocytes % (Manual) (test code = 737-7) 6 19-48 [facility] blood monocytes/100 leukocytes 2019-10-19 05:30:00* Test Item Value Reference Range Interpretation Comments Monocytes % (Manual) (test code = 744-3) 6 3.4-9.0 [facility] blood eosinophil count as percentage of total tmlxkziqzi6107-09-23 05:30:00* Test Item Value Reference Range Interpretation Comments Eosinophils % (Manual) (test code = 714-6) 3 0-7 [facility] ryztavojbr9810-91-98 05:30:00* Test Item Value Reference Range Interpretation Comments Basophils % (Manual) (test code = 85428-6) 1 0-1.5 [facility] blood myelocytes/100 leukocytes 2019-10-19 05:30:00* Test Item Value Reference Range Interpretation Comments Myelocytes % (test code = 749-2) 1 0-0 [facility] platelets count by estimate (number/volume)2019-10-19 05:30:00* Test Item Value Reference Range Interpretation Comments Platelet Estimate (test code = 93047-8) MODERATELY DECREASED [facility] anisocytosis detection by light qzkvocvmwf8893-83-37 05:30:00* Test Item Value Reference Range Interpretation Comments Anisocytosis (test code = 702-1) MODE [facility] macrocytes detection by light qwlaicabsx0449-06-22 05:30:00* Test Item Value Reference Range Interpretation Comments Macrocytosis (test code = 738-5) SLIGHT [facility] BeevilleRBC zsmkpiklcr9885-42-56 05:30:00* Test Item Value Reference Range Interpretation Comments Red Cell Morphology Comment (test code = 6742-1) ABNORMAL [facility] BeevilleFluoroscopic procedure less than one hour jelpkrdk2876-14-99 05:30:00* Test Item Value Reference Range Interpretation Comments Differential Total Cells Counted (test code = Jarret tial Total Cells Counted) 100 [facility] blood neutrophils/100 leukocytes 2019-10-19 05:30:00* Test Item Value Reference Range Interpretation Comments Neutrophils % (Manual) (test code = 25958-2) 83 40-74 [facility] blood lymphocytes/100 leukocytes 2019-10-19 05:30:00* Test Item Value Reference Range Interpretation Comments Lymphocytes % (Manual) (test code = 737-7) 6 19-48 [facility] blood monocytes/100 leukocytes 2019-10-19 05:30:00* Test Item Value Reference Range Interpretation Comments Monocytes % (Manual) (test code = 744-3) 6 3.4-9.0 [facility] blood eosinophil count as percentage of total iviaclxdou5712-82-82 05:30:00* Test Item Value Reference Range Interpretation Comments Eosinophils % (Manual) (test code = 714-6) 3 0-7 [facility] basophil hqdvausfay2938-01-91 05:30:00* Test Item Value Reference Range Interpretation Comments Basophils % (Manual) (test code = 18579-6) 1 0-1.5 [facility] blood myelocytes/100 leukocytes 2019-10-19 05:30:00* Test Item Value Reference Range Interpretation Comments Myelocytes % (test code = 749-2) 1 0-0 [facility] platelets count by estimate (number/volume)2019-10-19 05:30:00* Test Item Value Reference Range Interpretation Comments Platelet Estimate (test code = 61440-8) MODERATELY DECREASED [facility] anisocytosis detection by light mvpcnlhsrk0235-48-73 05:30:00* Test Item Value Reference Range Interpretation Comments Anisocytosis (test code = 702-1) MODE [facility] macrocytes detection by light getcladcfg3332-92-42 05:30:00* Test Item Value Reference Range Interpretation Comments Macrocytosis (test code = 738-5) SLIGHT [facility]evilleRB ptabvxqbcr7098-65-58 05:30:00* Test Item Value Reference Range Interpretation Comments Red Cell Morphology Comment (test code = 6742-1) ABNORMAL [facility] BeevilleProthrombin time (PT) in platelet poor plasma by coagulation ufzsb1107-02-77 05:25:00* Test Item Value Reference Range Interpretation Comments Prothrombin Time (test code = 5902-2) 13.8 11.9-14.5 [facility] BeevilleINR in Platelet poor plasma by Coagulation bscth2048-89-08 05:25:00* Test Item Value Reference Range Interpretation Comments Prothromb Time International Ratio (test code = 6301-6) 1.00 Oral Anticoagulant Therapy INR Values:1. Low Intensity Therapy 1.5 - 2.02 . Moderate Intensity Therapy 2.0 - 3.03. High Intensity Therapy(1) 2.5 - 3. 54. High Intensity Therapy(2) 3.0 - 4.05. Panic Value INR > 5.0 [facility] BeevilleProthrombin time (PT) in platelet poor plasma by coagulation lvckb9994-92-67 05:25:00* Test Item Value Reference Range Interpretation Comments Prothrombin Time (test code = 5902-2) 13.8 11.9-14.5 [facility] BeevilleINR in Platelet poor plasma by Coagulation comxe9857-98-31 05:25:00* Test Item Value Reference Range Interpretation Comments Prothromb Time International Ratio (test code = 6301-6) 1.00 Oral Anticoagulant Therapy INR Values:1. Low Intensity Therapy 1.5 - 2.02 . Moderate Intensity Therapy 2.0 - 3.03. High Intensity Therapy(1) 2.5 - 3. 54. High Intensity Therapy(2) 3.0 - 4.05. Panic Value INR > 5.0 [facility] BeevilleIndirect Iclxfzcpp6003-67-72 03:39:00* Test Item Value Reference Range Interpretation Comments Indirect Bilirubin (test code = 1971-1) 2.9 0.3-1.2 H [facility] BeevilleFerritin2020-03-20 23:10:00* Test Item Value Reference Range Interpretation Comments Ferritin (test code = 2276-4) > 2000.00 21.81-274.66 H [facility] BeevilleVitamin B12 Ohlsc6968-76-02 23:09:00* Test Item Value Reference Range Interpretation Comments Vitamin B12 Level (test code = 70205-7) 401 213-816 [facility] BeevilleFolate2020-03-20 23:09:00* Test Item Value Reference Range Interpretation Comments Folate (test code = 2284-8) 9.5 7.0-15.4 [facility] BeevillePercent Reticulocyte Akfey9067-17-02 22:26:00* Test Item Value Reference Range Interpretation Comments Percent Reticulocyte Count (test code = 11480-5) 5.5 0.8-2 .2 H [facility] BeevilleIron Juohs7843-88-78 22:25:00* Test Item Value Reference Range Interpretation Comments Iron Level (test code = 2498-4) 47 65-175 L [facility] BeevilleTotal Iron Binding Pntmvorf2094-79-83 22:25:00* Test Item Value Reference Range Interpretation Comments Total Iron Binding Capacity (test code = 2500-7) 223 261-4 78 L [facility] BeevillePercent Iron Rybpgpnerd6104-01-67 22:25:00* Test Item Value Reference Range Interpretation Comments Percent Iron Saturation (test code = 2502-3) 21 15-50 [facility] BeevilleTransferrin2020-03-20 22:25:00* Test Item Value Reference Range Interpretation Comments Transferrin (test code = 3034-6) 159 174-364 L [facility] BeevilleQualitative serum or plasma hepatitis B virus e antibody by enzyme tawxcuimmjj3561-79-16 21:30:00* Test Item Value Reference Range Interpretation Comments Hepatitis Be Antibody (test code = 83036-5) Negative Negative Performed at: [facility] Submittable[address] [id number] [employer] Integrator: Dasha Lr MD, Phone: [phone] Health Huguley Hospital Fort Worth Southerum or plasma alpha 1 antitrypsin measurement (mass/volume) 2019-10-18 21:30:00* Test Item Value Reference Range Interpretation Comments Xnvpr-3-Bbjxfgyyuvz (test code = 1825-9) 171 101-187 Performed at: [facility] Lab[address], [place], [place] [id number] 4Lab Director: RACHELLE Singh MD, Phone: [phone] Health Huguley Hospital [facility] Worth Southerum or plasma ceruloplasmin measurement (mass/volume)2019-10-18 21:30:00* Test Item Value Reference Range Interpretation Comments Ceruloplasmin (test code = 2064-4) 41.0 16.0-31.0 [facility] Southerum or plasma hepatitis B virus core antibody detection by berahwjiaxj9789-74-96 21:30:00* Test Item Value Reference Range Interpretation Comments Hepatitis B Core Total Antibody (test code = 80906-3) Negative Negative [facility] Southerum or plasma hepatitis A virus IgM antibody detection by btgdscyvorj0955-73-29 21:30:00* Test Item Value Reference Range Interpretation Comments Hepatitis A IgM Antibody (test code = 08828-7) Negative [facility] Southerum or plasma hepatitis B virus surface antigen detection by ceqoxxdmeje7926-55-67 21:30:00* Test Item Value Reference Range Interpretation Comments Hepatitis B Surface Antigen (test code = 5196-1) Negative [facility] Southerum or plasma hepatitis B virus core IgM antibody detection by nclzniqcekn8694-43-73 21:30:00* Test Item Value Reference Range Interpretation Comments Hepatitis B Core IgM Antibody (test code = 24849-3) Negative [facility] Southerum hepatitis C virus antibody qdajxryhc3416-67-61 21:30:00* Test Item Value Reference Range Interpretation Comments Hepatitis C Antibody (test code = 21934-5) <0.1 Reference Range: 0.0 - 0.9 s/co ratioNegative: < 0.8Indeterminate: 0.8 - 0.9Positive: > 0.9The CDC recommends that a positive HCV antibody resultbe followed up with a HCV Nucleic Acid Amplificationtest (970205).Testing performed by:LabBigTreeR[facility] HospitalKdpkjey38[address] [place], [place] [id number]: Roe Contreras [facility] Centererum mitochondria M2 IgG antibody assay (units/volume)2019-10-18 21:30:00* Test Item Value Reference Range Interpretation Comments Anti-Mitochondrial Antibody (test code = 46171-9) <20.0 0.0- 20.0 Negative 0.0 - 20.0 Equivocal 20.1 - 24.9 Positive > 24.9Mitochondrial (M2) Antibodies are found in 90-96% ofpatients with primary bi liary cirrhosis.Performed at: [facility] [id number] Director: Dasha Lr MD, Phone: [phone] Health Hugule[facility] Hospital [facility] Southerum nuclear antibody titer by xppnzphylgxcjykjhl4404-04-56 21:30:00* Test Item Value Reference Range Interpretation Comments Anti-Nuclear Antibody Screen (test code = 5048-4) Negative [facility] Southerum or plasma alkaline phosphatase measurement (enzymatic activity/volume)2019-10-18 21:30:00* Test Item Value Reference Range Interpretation Comments Alkaline Phosphatase (test code = 6768-6) 865 39-117 [facility] Southerum or plasma intestinal alkaline phosphatase/total alkaline phosphatase qizhh3525-20-35 21:30:00* Test Item Value Reference Range Interpretation Comments Alkaline Phosphatase Iso-Intestine (test code = 92115-1) 0 0-18 Performed at: [facility] Submittable[address] [id number] Director: Roe Contreras MD, Phone: [phone] at: [facility] Submittable[address] [id number] Director: Dasha Lr MD, Ph one: [phone] Health Hugule[facility] Hospital [facility] Southerum or plasma bone alkaline phosphatase/alkaline phosphatase.nzmba2273-12-65 21:30:00* Test Item Value Reference Range Interpretation Comments Alkaline Phosphatase Iso-Bone (test code = 36670-8) 21 12 -68 [facility] Southerum or plasma liver alkaline phosphatase/total alkaline phosphatase wqvta5730-89-85 21:30:00* Test Item Value Reference Range Interpretation Comments Alkaline Phosphatase Iso-Liver (test code = 63814-1) 79 1 3-88 [facility] BeevilleQualitative serum or plasma hepatitis B virus e antibody by enzyme gnnveakorbx6937-86-74 21:30:00* Test Item Value Reference Range Interpretation Comments Hepatitis Be Antibody (test code = 12887-0) Negative Negative Performed at: [facility] [id number] [employer] Integrator: Dasha Lr MD, Phone: [phone] Health Hugule[facility] Hospital [facility] Southerum or plasma alpha 1 antitrypsin measurement (mass/volume) 2019-10-18 21:30:00* Test Item Value Reference Range Interpretation Comments Joxbj-2-Llcbfkbhasb (test code = 1825-9) 171 101-187 Performed at: [facility] Lab[address], [place], [place] [id number] 4Lab Director: RACHELLE Singh MD, Phone: [phone] Health Huguley Hospital [facility] Southerum or plasma ceruloplasmin measurement (mass/volume)2019-10-18 21:30:00* Test Item Value Reference Range Interpretation Comments Ceruloplasmin (test code = 2064-4) 41.0 16.0-31.0 [facility] Southerum or plasma hepatitis B virus core antibody detection by cfawcrmcerw5543-96-93 21:30:00* Test Item Value Reference Range Interpretation Comments Hepatitis B Core Total Antibody (test code = 24814-0) Negative Negative [facility] Southerum or plasma hepatitis A virus IgM antibody detection by ikqxyqmalwq6009-26-92 21:30:00* Test Item Value Reference Range Interpretation Comments Hepatitis A IgM Antibody (test code = 09469-1) Negative [facility] Southerum or plasma hepatitis B virus surface antigen detection by pzchdqacuri6214-07-67 21:30:00* Test Item Value Reference Range Interpretation Comments Hepatitis B Surface Antigen (test code = 5196-1) Negative [facility] Southerum or plasma hepatitis B virus core IgM antibody detection by znwlztsozcr1807-73-14 21:30:00* Test Item Value Reference Range Interpretation Comments Hepatitis B Core IgM Antibody (test code = 66431-3) Negative [facility] Southerum hepatitis C virus antibody rskkppcda4364-28-14 21:30:00* Test Item Value Reference Range Interpretation Comments Hepatitis C Antibody (test code = 93772-7) <0.1 Reference Range: 0.0 - 0.9 s/co ratioNegative: < 0.8Indeterminate: 0.8 - 0.9Positive: > 0.9The CDC recommends that a positive HCV antibody resultbe followed up with a HCV Nucleic Acid Amplificationtest (624179).Testing performed by:[facility] [id number]: Roe Contreras [facility] Centererum mitochondria M2 IgG antibody assay (units/volume)2019-10-18 21:30:00* Test Item Value Reference Range Interpretation Comments Anti-Mitochondrial Antibody (test code = 36788-2) <20.0 0.0- 20.0 Negative 0.0 - 20.0 Equivocal 20.1 - 24.9 Positive > 24.9Mitochondrial (M2) Antibodies are found in 90-96% ofpatients with primary bi liary cirrhosis.Performed at: [address] [id number] Director: Dasha Lr MD, Phone: [phone] Health Huguley Hospital [facility] Southerum nuclear antibody titer by fspyugrnpuojnyseiy6758-00-89 21:30:00* Test Item Value Reference Range Interpretation Comments Anti-Nuclear Antibody Screen (test code = 5048-4) Negative [facility] Southerum or plasma alkaline phosphatase measurement (enzymatic activity/volume)2019-10-18 21:30:00* Test Item Value Reference Range Interpretation Comments Alkaline Phosphatase (test code = 6768-6) 865 39-117 [facility] Southerum or plasma intestinal alkaline phosphatase/total alkaline phosphatase ayqkg3675-14-31 21:30:00* Test Item Value Reference Range Interpretation Comments Alkaline Phosphatase Iso-Intestine (test code = 62635-7) 0 0-18 Performed at: [facility] Sub[address] [id number] Director: Roe Contreras MD, Phone: [phone] at: [facility] [address] [place] [id number] Director: Dasha Lr MD, Ph one: [phone] Health Hug[facility] Southerum or plasma bone alkaline phosphatase/alkaline phosphatase.pesvk3573-89-31 21:30:00* Test Item Value Reference Range Interpretation Comments Alkaline Phosphatase Iso-Bone (test code = 41297-4) 21 12 -68 [facility] Southerum or plasma liver alkaline phosphatase/total alkaline phosphatase kzynk9958-82-56 21:30:00* Test Item Value Reference Range Interpretation Comments Alkaline Phosphatase Iso-Liver (test code = 10014-8) 79 1 3-88 [facility]evilleCHEST [facility]INGLE ([facility]ABLE)2019-10-18 21:01:00 [facility] [address] [place] [address] Patient Name: VIOLETTE LAMB MR #: [id number] : 1965 Age/Sex: 54/M Req #: [id number] Adm Physician: LOUIE SALVADOR MD Ordered by: LOUIE SALVADOR MD Report #: [id number] Location: MED/SURG Room/Bed: [facility] Procedure: [id number] -[id number] DX/CHEST SINGLE (PORTABLE) Exam Date: 10/18/19 Exam Time: 2034 REPORT STATUS: Sig nicole EXAM: CHEST SINGLE (PORTABLE) DATE: 10/18/2019 7:48 PM INDICA TION: FEVER [id number] COMPARISON: Chest x-ray, 2018 FINDINGS: Lines and tubes: Stable appearance of tunneled right IJ dialysis catheter. Wire sternotomy sutures are again noted. There is mil d enlargement of the cardiac silhouette, stable from last exam. There is mi ld central pulmonary vascular prominence which appears increased. No periphera l consolidation or large pleural effusion. No pneumothorax. [...] on 10/18/192102 COPY TO: LOUIE SALVADOR MD Creatine Fdwgsk3133-05-39 14:56:00* Test Item Value Reference Range Interpretation Comments Creatine Kinase (test code = 2157-6) 38 30-200 [facility]evilleCreatine Kinase RW9043-42-86 14:56:00* Test Item Value Reference Range Interpretation Comments Creatine Kinase MB (test code = 43411-0) 1.20 0-5.0 [facility] BeevilleTroponin E5899-62-47 14:56:00* Test Item Value Reference Range Interpretation Comments Troponin I (test code = KYW7433) 0.059 0-0.300 [facility] BeevilleActivated Partial Thromboplast Time 2019-10-18 13:15:00* Test Item Value Reference Range Interpretation Comments Activated Partial Thromboplast Time (test code = 25606-0) 30.1 23.8-35.5 [facility] BeevilleAutomated reticulocyte count as percentage of total lisxcvwootyv8487-71-27 12:40:00* Test Item Value Reference Range Interpretation Comments Percent Reticulocyte Count (test code = 67926-6) 5.5 0.8-2 .2 [facility] BeevilleActivated partial thromboplastin time (aPTT) in platelet poor plasma by coagulation vqrgf2192-06-67 12:40:00* Test Item Value Reference Range Interpretation Comments Activated Partial Thromboplast Time (test code = 24923-1) 30.1 23.8-35.5 [facility] Southerum or plasma iron measurement (mass/volume)2019-10-18 12:40:00* Test Item Value Reference Range Interpretation Comments Iron Level (test code = 2498-4) 47 65-175 [facility] Southerum or plasma iron binding capacity measurement (mass/volume)2019-10-18 12:40:00* Test Item Value Reference Range Interpretation Comments Total Iron Binding Capacity (test code = 2500-7) 223 261-4 78 [facility] Southerum or plasma iron saturation measurement (mass fraction)2019-10-18 12:40:00* Test Item Value Reference Range Interpretation Comments Percent Iron Saturation (test code = 2502-3) 21 15-50 [facility] plasma transferrin measurement (mass/volume)2019-10-18 12:40:00* Test Item Value Reference Range Interpretation Comments Transferrin (test code = 3034-6) 159 174-364 [facility] or plasma ferritin measurement (mass/volume)2019-10-18 12:40:00* Test Item Value Reference Range Interpretation Comments Ferritin (test code = 2276-4) > 2000.00 21.81-274.66 [facility] or plasma indirect bilirubin measurement (mass/volume)2019-10-18 12:40:00* Test Item Value Reference Range Interpretation Comments Indirect Bilirubin (test code = 1971-1) 2.9 0.3-1.2 [facility] or plasma creatine kinase measurement (enzymatic activity/volume)2019-10-18 12:40:00* Test Item Value Reference Range Interpretation Comments Creatine Kinase (test code = 2157-6) 38 30-200 [facility] or plasma creatine kinase MB measurement (mass/volume)2019-10-18 12:40:00* Test Item Value Reference Range Interpretation Comments Creatine Kinase MB (test code = 77370-0) 1.20 0-5.0 [facility] by highly sensitive enzyme [id number] 12:40:00* Test Item Value Reference Range Interpretation Comments Troponin I (test code = 23500-1) 0.059 0-0.300 [facility] cobalamin (vitamin B12) measurement (mass/volume)2019-10-18 12:40:00* Test Item Value Reference Range Interpretation Comments Vitamin B12 Level (test code = 51685-9) 401 213-816 [facility] or plasma folate measurement (mass/volume)2019-10-18 12:40:00* Test Item Value Reference Range Interpretation Comments Folate (test code = 2284-8) 9.5 7.0-15.4 [facility] reticulocyte count as percentage of total [id number] 12:40:00* Test Item Value Reference Range Interpretation Comments Percent Reticulocyte Count (test code = 36288-5) 5.5 0.8-2 .2 [facility]evilleActivated partial thromboplastin time (aPTT) in platelet poor plasma by coagulation [id number] 12:40:00* Test Item Value Reference Range Interpretation Comments Activated Partial Thromboplast Time (test code = 99252-3) 30.1 23.8-35.5 [facility] plasma iron measurement (mass/volume)2019-10-18 12:40:00* Test Item Value Reference Range Interpretation Comments Iron Level (test code = 2498-4) 47 65-175 [facility] plasma iron binding capacity measurement (mass/volume)2019-10-18 12:40:00* Test Item Value Reference Range Interpretation Comments Total Iron Binding Capacity (test code = 2500-7) 223 261-4 78 [facility] plasma iron saturation measurement (mass fraction)2019-10-18 12:40:00* Test Item Value Reference Range Interpretation Comments Percent Iron Saturation (test code = 2502-3) 21 15-50 [facility] or plasma transferrin measurement (mass/volume)2019-10-18 12:40:00* Test Item Value Reference Range Interpretation Comments Transferrin (test code = 3034-6) 159 174-364 [facility] or plasma ferritin measurement (mass/volume)2019-10-18 12:40:00* Test Item Value Reference Range Interpretation Comments Ferritin (test code = 2276-4) > 2000.00 21.81-274.66 [facility] or plasma indirect bilirubin measurement (mass/volume)2019-10-18 12:40:00* Test Item Value Reference Range Interpretation Comments Indirect Bilirubin (test code = 1971-1) 2.9 0.3-1.2 [facility] plasma creatine kinase measurement (enzymatic activity/volume)2019-10-18 12:40:00* Test Item Value Reference Range Interpretation Comments Creatine Kinase (test code = 2157-6) 38 30-200 [facility] or plasma creatine kinase MB measurement (mass/volume)2019-10-18 12:40:00* Test Item Value Reference Range Interpretation Comments Creatine Kinase MB (test code = 55481-7) 1.20 0-5.0 [facility] measurement by highly sensitive enzyme kgdecmparxs1036-26-90 12:40:00* Test Item Value Reference Range Interpretation Comments Troponin I (test code = 04524-4) 0.059 0-0.300 [facility] cobalamin (vitamin B12) measurement (mass/volume)2019-10-18 12:40:00* Test Item Value Reference Range Interpretation Comments Vitamin B12 Level (test code = 21384-7) 401 213-816 [facility] or plasma folate measurement (mass/volume)2019-10-18 12:40:00* Test Item Value Reference Range Interpretation Comments Folate (test code = 2284-8) 9.5 7.0-15.4 [facility]2020-[facility]-14 20:09:00* Test Item Value Reference Range Interpretation Comments GLUBED (test code = GLUBED) 118 mg/dL 74-106 H Performed by certified coagulation operator at [facility] ANTINUCLEAR ANTIBODIES [id number] 18:07:00* Test Item Value Reference Range Interpretation Comments BRIDGETT SCREEN (test code = ANASCR) Negative Negative Performed At: [facility] [address] [id number] Kyle L MD Ph:[phone] REFAB [id number] 18:07:00* Test Item Value Reference Range Interpretation Comments AB MITOCHONDRIAL (test code = MITOCHAB) <20.0 Units 0.0-20.0 Negative 0.0 - 20.0 Equivocal 20.1 - 24.9 Positive >24.9Mitochondrial (M2) Antibodies are found in 90-96% ofpatients with primary biliary cirrhosis.Performed At: [facility] [address] [id number] Lou MD Ph:[phone] [id number] 11:29:00* Test Item Value Reference Range Interpretation Comments GLUBED (test code = GLUBED) 133 mg/dL 74-106 H Performed by certified coagulation operator at [facility] [id number] 11:02:00* Test Item Value Reference Range Interpretation Comments GLUBED (test code = GLUBED) 146 mg/dL 74-106 H Performed by certified coagulation operator at [facility] AB HIV 1 09:51:00* Test Item Value Reference Range Interpretation Comments AB HIV 1 2 (test code = IZJ09LK) Nonreactive NonReactive It is recognized that currently available assays for thedetection of antibodies to HIV-1 and/or HIV-2 may notdetect all infected individuals. A negative test result doesnot exclude the possibility of exposure to or infection withHIV. HIV antibodies may be undetectable in some stages ofthe infection and in some clinical conditions. AB HEPATITIS B [id number] 07:12:00* Test Item Value Reference Range Interpretation Comments AB HEPATITIS B SURFACE (test code = HBSAB) Reactive () Non Reactive: Inconsistent with immunity, less than 10 mIU/mL Reactive: Consistent with immunity, greater than 9.9 mIU/mLPerformed At: [facility] [address] [id number] Palencia MD Ph:[phone] HEPATITIS B CORE ANTIBODY,[id number] 07:12:00* Test Item Value Reference Range Interpretation Comments HEPATITIS B CORE ANTIBODY,TOT (test code = HBCAB) Negative Nega tive Performed At: [facility] [address] [id number] Palencia MD Ph:[phone] [id number] 05:31:00* Test Item Value Reference Range Interpretation Comments HEMOGLOBIN (test code = HGB) 8.0 gram/dL 13.0-17.5 L [id number] 20:08:00* Test Item Value Reference Range Interpretation Comments GLUBED (test code = GLUBED) 135 mg/dL 74-106 H Performed by certified coagulation operator at [facility] [id number] 17:42:00* Test Item Value Reference Range Interpretation Comments GLUBED (test code = GLUBED) 237 mg/dL 74-106 H Performed by certified coagulation operator at [facility] BASIC METABOLIC [id number] 13:54:00* Test Item Value Reference Range Interpretation [...] CA) 8.7 mg/dL 8.5-10.1 N BASIC METABOLIC [id number] 13:49:00* Test Item Value Reference Range Interpretation [...] code = CA) mg/dL 8.5-10.1 CBC W/AUTO [id number] 12:42:00* Test Item Value Reference Range Interpretation [...] = MDIFF) NO, ONLY SCAN NEEDED DIFFERENTIAL [id number] 12:42:00* Test Item Value Reference Range Interpretation Comments STAIN ACCEPTABILITY (test code = STN ACCEPTABLE) STAIN ACCEPTABLE POLYCHROMASIA (test code = POLC) 1+ ANISOCYTOSIS (test code = ANISO) 3+ MACROCYTOSIS (test code = MACR) 3+ PLATELET ESTIMATE (test code = PLTEST) SLIGHTLY DECREASED PLATELET MORPHOLOGY (test code = PLTMORPH) NORMAL [id number] 12:13:00* Test Item Value Reference Range Interpretation Comments GLUBED (test code = GLUBED) 142 mg/dL 74-106 H Performed by certified coagulation operator at [facility] CBC W/AUTO [id number] 11:55:00* Test Item Value Reference Range Interpretation [...] = MDIFF) NO, ONLY SCAN NEEDED DIFFERENTIAL [id number] 11:55:00* Test Item Value Reference Range Interpretation Comments STAIN ACCEPTABILITY (test code = STN ACCEPTABLE) CABOT RINGS (test code = CAB) MORPHOLOGY COMMENT (test code = MOC) PLATELET ESTIMATE (test code = PLTEST) PLATELET MORPHOLOGY (test code = PLTMORPH) CBC W/AUTO [id number] 11:55:00* Test Item Value Reference Range Interpretation [...] = MDIFF) NO, ONLY SCAN NEEDED DIFFERENTIAL [id number] 11:55:00* Test Item Value Reference Range Interpretation Comments STAIN ACCEPTABILITY (test code = STN ACCEPTABLE) CABOT RINGS (test code = CAB) MORPHOLOGY COMMENT (test code = MOC) PLATELET ESTIMATE (test code = PLTEST) PLATELET MORPHOLOGY (test code = PLTMORPH) CBC W/AUTO [id number] 11:55:00* Test Item Value Reference Range Interpretation [...] = MDIFF) NO, ONLY SCAN NEEDED DIFFERENTIAL [id number] 11:55:00* Test Item Value Reference Range Interpretation Comments STAIN ACCEPTABILITY (test code = STN ACCEPTABLE) MORPHOLOGY COMMENT (test code = MOC) PLATELET ESTIMATE (test code = PLTEST) PLATELET MORPHOLOGY (test code = PLTMORPH) CBC W/AUTO [id number] 11:55:00* Test Item Value Reference Range Interpretation [...] = MDIFF) NO, ONLY SCAN NEEDED DIFFERENTIAL [id number] 11:55:00* Test Item Value Reference Range Interpretation Comments STAIN ACCEPTABILITY (test code = STN ACCEPTABLE) CABOT RINGS (test code = CAB) MORPHOLOGY COMMENT (test code = MOC) PLATELET ESTIMATE (test code = PLTEST) PLATELET MORPHOLOGY (test code = PLTMORPH) CBC W/AUTO [id number] 07:58:00* Test Item Value Reference Range Interpretation [...] = MDIFF) NO, ONLY SCAN NEEDED DIFFERENTIAL [id number] 07:58:00* Test Item Value Reference Range Interpretation Comments STAIN ACCEPTABILITY (test code = STN ACCEPTABLE) STAIN ACCEPTABLE POLYCHROMASIA (test code = POLC) 1+ ANISOCYTOSIS (test code = ANISO) 3+ MACROCYTOSIS (test code = MACR) 3+ PLATELET ESTIMATE (test code = PLTEST) SLIGHTLY DECREASED PLATELET MORPHOLOGY (test code = PLTMORPH) NORMAL CBC W/AUTO [id number] 07:44:00* Test Item Value Reference Range Interpretation [...] = MDIFF) NO, ONLY SCAN NEEDED DIFFERENTIAL [id number] 07:44:00* Test Item Value Reference Range Interpretation Comments STAIN ACCEPTABILITY (test code = STN ACCEPTABLE) CABOT RINGS (test code = CAB) MORPHOLOGY COMMENT (test code = MOC) PLATELET ESTIMATE (test code = PLTEST) PLATELET MORPHOLOGY (test code = PLTMORPH) CBC W/AUTO [id number] 07:44:00* Test Item Value Reference Range Interpretation [...] = MDIFF) NO, ONLY SCAN NEEDED DIFFERENTIAL [id number] 07:44:00* Test Item Value Reference Range Interpretation Comments STAIN ACCEPTABILITY (test code = STN ACCEPTABLE) CABOT RINGS (test code = CAB) MORPHOLOGY COMMENT (test code = MOC) PLATELET ESTIMATE (test code = PLTEST) PLATELET MORPHOLOGY (test code = PLTMORPH) CBC W/AUTO [id number] 07:44:00* Test Item Value Reference Range Interpretation [...] = MDIFF) NO, ONLY SCAN NEEDED DIFFERENTIAL [id number] 07:44:00* Test Item Value Reference Range Interpretation Comments STAIN ACCEPTABILITY (test code = STN ACCEPTABLE) MORPHOLOGY COMMENT (test code = MOC) PLATELET ESTIMATE (test code = PLTEST) PLATELET MORPHOLOGY (test code = PLTMORPH) CBC W/AUTO [id number] 07:44:00* Test Item Value Reference Range Interpretation [...] = MDIFF) NO, ONLY SCAN NEEDED DIFFERENTIAL [id number] 07:44:00* Test Item Value Reference Range Interpretation Comments STAIN ACCEPTABILITY (test code = STN ACCEPTABLE) CABOT RINGS (test code = CAB) MORPHOLOGY COMMENT (test code = MOC) PLATELET ESTIMATE (test code = PLTEST) PLATELET MORPHOLOGY (test code = PLTMORPH) [id number] 07:34:00* Test Item Value Reference Range Interpretation Comments GLUBED (test code = GLUBED) 204 mg/dL 74-106 H Performed by certified coagulation operator at [facility] [id number] 20:20:00* Test Item Value Reference Range Interpretation Comments GLUBED (test code = GLUBED) 234 mg/dL 74-106 H Performed by certified coagulation operator at [facility] PROTHROMBIN [id number] 17:59:00* Test Item Value Reference Range Interpretation [...] (2.5-3.5) IS PATIENT ON ANTICOAGULANTS? NCBC W/O [id number] 17:49:00* Test Item Value Reference Range Interpretation [...] code = MPV) 12.2 fL 6.7-11.0 H [id number] 17:21:00* Test Item Value Reference Range Interpretation Comments GLUBED (test code = GLUBED) 146 mg/dL 74-106 H Performed by certified coagulation operator at [facility] [id number] 12:20:00* Test Item Value Reference Range Interpretation Comments GLUBED (test code = GLUBED) 194 mg/dL 74-106 H Performed by certified coagulation operator at [facility] ANTINUCLEAR ANTIBODIES [id number] 11:09:00* Test Item Value Reference Range Interpretation Comments BRIDGETT SCREEN (test code = ANASCR) Negative Negative Performed At: [facility] [id number] Kyle L MD Ph:[phone] REFAB [id number] 11:09:00* Test Item Value Reference Range Interpretation Comments AB MITOCHONDRIAL (test code = MITOCHAB) EIA <1.0 [id number] 08:13:00* Test Item Value Reference Range Interpretation Comments GLUBED (test code = GLUBED) 188 mg/dL 74-106 H Performed by certified coagulation operator at [facility] ALPHA FETOPROTEIN TUMOR [id number] 08:10:00* Test Item Value Reference Range Interpretation Comments ALPHA FETOPROTEIN TUMOR MARKER (test code = AFPTM) 3.9 ng/mL 0.0 -8.3 [facility] Electrochemiluminescence Immunoassay(ECLIA)Values obtained with different assay methods or kits cannotbe used interchangeably. Results cannot be interpreted asabsolute evidence of the presence or absence of malignantdisease.This test is not interpretable in females.Performed At: [facility] [address] [id number] Roe Palencia MD Ph:[phone] [id number] 08:07:00* Test Item Value Reference Range Interpretation Comments HEMOGLOBIN (test code = HGB) 8.3 gram/dL 13.0-17.5 L [id number] 20:38:00* Test Item Value Reference Range Interpretation Comments GLUBED (test code = GLUBED) 168 mg/dL 74-106 H Performed by certified coagulation operator at [facility] [id number] 17:29:00* Test Item Value Reference Range Interpretation Comments GLUBED (test code = GLUBED) 192 mg/dL 74-106 H Performed by certified coagulation operator at [facility] HGB [id number] 16:55:00* Test Item Value Reference Range Interpretation Comments HEMOGLOBIN (test code = HGB) 8.6 gram/dL 13.0-17.5 L RESULT VERIFIED BY REPEAT ANALYSIS HEMATOCRIT (test code = HCT) 25.4 % 42.0-52.0 L [id number] 13:43:00* Test Item Value Reference Range Interpretation Comments GLUBED (test code = GLUBED) 224 mg/dL 74-106 H Performed by certified coagulation operator at [facility] ACUTE HEPATITIS [id number] 08:10:00* Test Item Value Reference Range Interpretation [...] with a HCV Nucleic Acid Amplification test ([id number]).Performed At: [facility] [address], [place] [id number] Roe Palencia MD Ph:[phone] [id number] 08:02:00* Test Item Value Reference Range Interpretation Comments GLUBED (test code = GLUBED) 197 mg/dL 74-106 H Performed by certified coagulation operator at [facility] AG HEPAT B [id number] 07:41:00* Test Item Value Reference Range Interpretation Comments AG HEPAT B SURF (test code = HBSAG) Nonreactive Index Nonreactive BASIC METABOLIC [id number] 03:15:00* Test Item Value Reference Range Interpretation [...] CA) 8.8 mg/dL 8.5-10.1 N HEPATIC FUNCTION [id number] 03:15:00* Test Item Value Reference Range Interpretation [...] due to change in reagent. CBC W/AUTO [id number] 02:51:00* Test Item Value Reference Range Interpretation Comments WHITE BLOOD CELL (test code = WBC) 5.2 K/mm3 4.5-12.5 N RED BLOOD CELL (test code = RBC) 2.04 mill/mm3 4.0-5.8 L HEMOGLOBIN (test code = HGB) 6.6 gram/dL 13.0-17.5 L HEMATOCRIT (test code = HCT) 19.9 % 42.0-52.0 LL Results called to [id number] by VERONICA1 10/09/19 0220Critical results verified and [...] = MDIFF) NO, ONLY SCAN NEEDED DIFFERENTIAL [id number] 02:51:00* Test Item Value Reference Range Interpretation [...] (test code = PLTMORPH) NORMAL BASIC METABOLIC [id number] 02:50:00* Test Item Value Reference Range Interpretation [...] code = CA) mg/dL 8.5-10.1 HEPATIC FUNCTION [id number] 02:50:00* Test Item Value Reference Range Interpretation [...] code = ALKP) IUnit/L 45-117 CBC W/AUTO [id number] 02:20:00* Test Item Value Reference Range Interpretation Comments WHITE BLOOD CELL (test code = WBC) 5.2 K/mm3 4.5-12.5 N RED BLOOD CELL (test code = RBC) 2.04 mill/mm3 4.0-5.8 L HEMOGLOBIN (test code = HGB) 6.6 gram/dL 13.0-17.5 L HEMATOCRIT (test code = HCT) 19.9 % 42.0-52.0 Results called to [id number] by MORENO 10/09/19 0220Critical results verified and [...] = MDIFF) NO, ONLY SCAN NEEDED DIFFERENTIAL [id number] 02:20:00* Test Item Value Reference Range Interpretation Comments STAIN ACCEPTABILITY (test code = STN ACCEPTABLE) CABOT RINGS (test code = CAB) MORPHOLOGY COMMENT (test code = MOC) PLATELET ESTIMATE (test code = PLTEST) PLATELET MORPHOLOGY (test code = PLTMORPH) CBC W/AUTO [id number] 02:20:00* Test Item Value Reference Range Interpretation Comments WHITE BLOOD CELL (test code = WBC) 5.2 K/mm3 4.5-12.5 N RED BLOOD CELL (test code = RBC) 2.04 mill/mm3 4.0-5.8 L HEMOGLOBIN (test code = HGB) 6.6 gram/dL 13.0-17.5 L HEMATOCRIT (test code = HCT) 19.9 % 42.0-52.0 LL Results called to [id number] by VERONICA1 10/09/19 0220Critical results verified and [...] = MDIFF) NO, ONLY SCAN NEEDED DIFFERENTIAL [id number] 02:20:00* Test Item Value Reference Range Interpretation Comments STAIN ACCEPTABILITY (test code = STN ACCEPTABLE) CABOT RINGS (test code = CAB) MORPHOLOGY COMMENT (test code = MOC) PLATELET ESTIMATE (test code = PLTEST) PLATELET MORPHOLOGY (test code = PLTMORPH) CBC W/AUTO [id number] 02:20:00* Test Item Value Reference Range Interpretation Comments WHITE BLOOD CELL (test code = WBC) 5.2 K/mm3 4.5-12.5 N RED BLOOD CELL (test code = RBC) 2.04 mill/mm3 4.0-5.8 L HEMOGLOBIN (test code = HGB) 6.6 gram/dL 13.0-17.5 L HEMATOCRIT (test code = HCT) 19.9 % 42.0-52.0 LL Results called to [id number] by VERONICA1 10/09/19 0220Critical results verified and [...] = MDIFF) NO, ONLY SCAN NEEDED DIFFERENTIAL [id number] 02:20:00* Test Item Value Reference Range Interpretation Comments STAIN ACCEPTABILITY (test code = STN ACCEPTABLE) MORPHOLOGY COMMENT (test code = MOC) PLATELET ESTIMATE (test code = PLTEST) PLATELET MORPHOLOGY (test code = PLTMORPH) CBC W/AUTO [id number] 02:20:00* Test Item Value Reference Range Interpretation Comments WHITE BLOOD CELL (test code = WBC) 5.2 K/mm3 4.5-12.5 N RED BLOOD CELL (test code = RBC) 2.04 mill/mm3 4.0-5.8 L HEMOGLOBIN (test code = HGB) 6.6 gram/dL 13.0-17.5 L HEMATOCRIT (test code = HCT) 19.9 % 42.0-52.0 Results called to [id number] by MORENO 10/09/19 0220Critical results verified and [...] = MDIFF) NO, ONLY SCAN NEEDED DIFFERENTIAL [id number] 02:20:00* Test Item Value Reference Range Interpretation Comments STAIN ACCEPTABILITY (test code = STN ACCEPTABLE) CABOT RINGS (test code = CAB) MORPHOLOGY COMMENT (test code = MOC) PLATELET ESTIMATE (test code = PLTEST) PLATELET MORPHOLOGY (test code = PLTMORPH) [id number] 20:19:00* Test Item Value Reference Range Interpretation Comments GLUBED (test code = GLUBED) 252 mg/dL 74-106 H Performed by certified coagulation operator at [facility] [id number] 16:04:00* Test Item Value Reference Range Interpretation Comments GLUBED (test code = GLUBED) 216 mg/dL 74-106 H Performed by certified coagulation operator at [facility] HGB [id number] 14:10:00* Test Item Value Reference Range Interpretation Comments HEMOGLOBIN (test code = HGB) 6.8 gram/dL 13.0-17.5 L HEMATOCRIT (test code = HCT) 20.7 % 42.0-52.0 LL Results called to [id number] by V.LAB.JQ 10/08/19 1410Critical results verified and read back by Nurse? Y [id number] 11:49:00* Test Item Value Reference Range Interpretation Comments GLUBED (test code = GLUBED) 197 mg/dL 74-106 H Performed by certified coagulation operator at [facility] [id number] 08:14:00* Test Item Value Reference Range Interpretation Comments GLUBED (test code = GLUBED) 222 mg/dL 74-106 H Performed by certified coagulation operator at [facility] CBC W/AUTO [id number] 08:14:00* Test Item Value Reference Range Interpretation Comments WHITE BLOOD CELL (test code = WBC) 5.4 K/mm3 4.5-12.5 N RED BLOOD CELL (test code = RBC) 2.02 mill/mm3 4.0-5.8 L HEMOGLOBIN (test code = HGB) 6.6 gram/dL 13.0-17.5 L HEMATOCRIT (test code = HCT) 19.4 % 42.0-52.0 LL Results called to [id number] by V.LAB.JQ 10/08/19 0701Critical results verified and read back [...] = MDIFF) NO, ONLY SCAN NEEDED DIFFERENTIAL [id number] 08:14:00* Test Item Value Reference Range Interpretation [...] (test code = PLTMORPH) NORMAL BASIC METABOLIC [id number] 07:45:00* Test Item Value Reference Range Interpretation [...] CA) 8.4 mg/dL 8.5-10.1 L HEPATIC FUNCTION [id number] 07:45:00* Test Item Value Reference Range Interpretation [...] due to change in reagent. BASIC METABOLIC [id number] 07:37:00* Test Item Value Reference Range Interpretation [...] code = CA) mg/dL 8.5-10.1 HEPATIC FUNCTION [id number] 07:37:00* Test Item Value Reference Range Interpretation [...] code = ALKP) IUnit/L 45-117 CBC W/AUTO [id number] 07:01:00* Test Item Value Reference Range Interpretation Comments WHITE BLOOD CELL (test code = WBC) 5.4 K/mm3 4.5-12.5 N RED BLOOD CELL (test code = RBC) 2.02 mill/mm3 4.0-5.8 L HEMOGLOBIN (test code = HGB) 6.6 gram/dL 13.0-17.5 L HEMATOCRIT (test code = HCT) 19.4 % 42.0-52.0 Results called to [id number] by LESLIE 10/08/19 0701Critical results verified and [...] = MDIFF) NO, ONLY SCAN NEEDED DIFFERENTIAL [id number] 07:01:00* Test Item Value Reference Range Interpretation Comments STAIN ACCEPTABILITY (test code = STN ACCEPTABLE) CABOT RINGS (test code = CAB) MORPHOLOGY COMMENT (test code = MOC) PLATELET ESTIMATE (test code = PLTEST) PLATELET MORPHOLOGY (test code = PLTMORPH) CBC W/AUTO [id number] 07:01:00* Test Item Value Reference Range Interpretation Comments WHITE BLOOD CELL (test code = WBC) 5.4 K/mm3 4.5-12.5 N RED BLOOD CELL (test code = RBC) 2.02 mill/mm3 4.0-5.8 L HEMOGLOBIN (test code = HGB) 6.6 gram/dL 13.0-17.5 L HEMATOCRIT (test code = HCT) 19.4 % 42.0-52.0 LL Results called to [id number] by LESLIE 10/08/19 0701Critical results verified and [...] = MDIFF) NO, ONLY SCAN NEEDED DIFFERENTIAL [id number] 07:01:00* Test Item Value Reference Range Interpretation Comments STAIN ACCEPTABILITY (test code = STN ACCEPTABLE) CABOT RINGS (test code = CAB) MORPHOLOGY COMMENT (test code = MOC) PLATELET ESTIMATE (test code = PLTEST) PLATELET MORPHOLOGY (test code = PLTMORPH) CBC W/AUTO [id number] 07:01:00* Test Item Value Reference Range Interpretation Comments WHITE BLOOD CELL (test code = WBC) 5.4 K/mm3 4.5-12.5 N RED BLOOD CELL (test code = RBC) 2.02 mill/mm3 4.0-5.8 L HEMOGLOBIN (test code = HGB) 6.6 gram/dL 13.0-17.5 L HEMATOCRIT (test code = HCT) 19.4 % 42.0-52.0 Results called to [id number] by LESLIE 10/08/19 0701Critical results verified and [...] = MDIFF) NO, ONLY SCAN NEEDED DIFFERENTIAL [id number] 07:01:00* Test Item Value Reference Range Interpretation Comments STAIN ACCEPTABILITY (test code = STN ACCEPTABLE) MORPHOLOGY COMMENT (test code = MOC) PLATELET ESTIMATE (test code = PLTEST) PLATELET MORPHOLOGY (test code = PLTMORPH) CBC W/AUTO [id number] 07:01:00* Test Item Value Reference Range Interpretation Comments WHITE BLOOD CELL (test code = WBC) 5.4 K/mm3 4.5-12.5 N RED BLOOD CELL (test code = RBC) 2.02 mill/mm3 4.0-5.8 L HEMOGLOBIN (test code = HGB) 6.6 gram/dL 13.0-17.5 L HEMATOCRIT (test code = HCT) 19.4 % 42.0-52.0 LL Results called to [id number] by LESLIE 10/08/19 0701Critical results verified and [...] = MDIFF) NO, ONLY SCAN NEEDED DIFFERENTIAL [id number] 07:01:00* Test Item Value Reference Range Interpretation Comments STAIN ACCEPTABILITY (test code = STN ACCEPTABLE) CABOT RINGS (test code = CAB) MORPHOLOGY COMMENT (test code = MOC) PLATELET ESTIMATE (test code = PLTEST) PLATELET MORPHOLOGY (test code = PLTMORPH) [id number] 23:25:00* Test Item Value Reference Range Interpretation Comments GLUBED (test code = GLUBED) 187 mg/dL 74-106 H Performed by certified coagulation operator at [facility] - US ABDOMEN [id number] 20:26:00 Name: VIOLETTE LAMB [facility] : 1965 Age/S: 54 / M [address] [facility] Unit #: [id number] Loc: [place] [address] Phys: Louie Salvador MD Acct: [id number] Dis Date: Status: ADM IN PHONE #: [phone] Exam Date: 10/07/20192003 FAX #: [phone] Reason: jaundice EXAMS: CPT CODE: [id number] US ABDOMEN COMPLETE 48549 REASON FOR EXAM: jaundice EXAM ORDER DATE: 10/07/2019 7:23 PM Ordering: Louie Salvador MD Attending:Louie Salvador MD Location:[facility] PROCEDURE: - US ABDOMEN COMPLETE FINDINGS: The [...] Signed Re port - XR CHEST 1 [id number] 20:24:00 FAX: Louie Beasley MD [place]: St: [facility] FAX: Mane Kim MD [phone] Name: SAGE JOSEPHVIOLETTE Kenny [facility] : 1965 Age/S: 54/M [address] [facility] Unit #: [id number] Loc: [place] [address] Phys: Louie Salvador MD Acct: [id number] Dis Date: Status: ADM IN PHONE #: [phone] Exam Date: 10/07/20192010 FAX #: [phone] Reason: h/o chf EXAMS: CPT CODE: [id number] XR CHEST 1 V 76966 REASON FOR EXAM: h/o chf EXAM ORDER [...] Trnscrd Date /Time/By: 10/07/2019 (2023) : By: Ignacio Orig Print D/T: S: 020 (2026) PAGE 1 Signed Report FE W/TOTAL IRON BINDING CAP.2019-10-07 19:51:00* Test Item Value Reference Range Interpretation Comments SERUM IRON (test code = IRON) 87 ug/dL 50-175 N TOTAL IRON BINDING CAPACITY (test code = TIBC) 220 mcg/dL 250-450 L IRON SATURATION (test code = FESAT) 39.55 % 13-45 N HEPATIC FUNCTION [id number] 19:19:00* Test Item Value Reference Range Interpretation [...] reference range due to change in reagent. [id number] 19:19:00* Test Item Value Reference Range Interpretation Comments LIPASE (test code = LIP) 166 U/L 73.0-393.0 N [id number]-[id number] 19:19:00* Test Item Value Reference Range Interpretation Comments TROPONIN-I (test code = TROPI) 0.030 ng/mL 0-0.045 N BASIC METABOLIC [id number] 18:22:00* Test Item Value Reference Range Interpretation [...] CA) 8.8 mg/dL 8.5-10.1 N BASIC METABOLIC [id number] 18:18:00* Test Item Value Reference Range Interpretation [...] (test code = CA) mg/dL 8.5-10.1 PROTHROMBIN [id number] 18:15:00* Test Item Value Reference Range Interpretation [...] (2.5-3.5) IS PATIENT ON ANTICOAGULANTS? NTHROMBOPLASTIN TIME [id number] 18:15:00* Test Item Value Reference Range Interpretation Comments THROMBOPLASTIN TIME PARTIAL (test code = PTT) 34.2 seconds 25.0-36. 5 N IS PATIENT ON ANTICOAGULANTS? NCBC W/O [id number] 18:07:00* Test Item Value Reference Range Interpretation Comments WHITE BLOOD CELL (test code = WBC) 4.6 K/mm3 4.5-12.5 N RED BLOOD CELL (test code = RBC) 2.22 mill/mm3 4.0-5.8 L HEMOGLOBIN (test code = HGB) 7.2 gram/dL 13.0-17.5 L HEMATOCRIT (test code = HCT) 20.8 % 42.0-52.0 LL Results called to [id number] by MICHELET 10/07/19 1804Critical results verified and [...] code = MPV) 12.1 fL 6.7-11.0 H [id number] 09:59:00* Test Item Value Reference Range Interpretation Comments GLUBED (test code = GLUBED) 100 mg/dL 74-106 N Performed by certified coagulation operator at [facility] CBC W/AUTO [id number] 19:58:00* Test Item Value Reference Range Interpretation [...] = MDIFF) NO, ONLY SCAN NEEDED DIFFERENTIAL [id number] 19:58:00* Test Item Value Reference Range Interpretation Comments STAIN ACCEPTABILITY (test code = STN ACCEPTABLE) STAIN ACCEPTABLE ANISOCYTOSIS (test code = ANISO) 1+ PLATELET ESTIMATE (test code = PLTEST) DECREASED PLATELET MORPHOLOGY (test code = PLTMORPH) NORMAL COMPREHENSIVE METABOLIC [id number] 18:51:00* Test Item Value Reference Range Interpretation [...] RELATED TO RISK LEVELS ASRECOMMENDED BY THE JOYCE. HEART, LUNG, AND BLOOD INST. HDL CHOLESTEROL [...] LDL result is a direct measurement.========= PROTHROMBIN [id number] 18:47:00* Test Item Value Reference Range Interpretation [...] Mechanical prosthetic heart valves (2.5-3.5) THROMBOPLASTIN TIME [id number] 18:47:00* Test Item Value Reference Range Interpretation Comments THROMBOPLASTIN TIME PARTIAL (test code = PTT) 35.7 seconds 25.0-36. 5 N COMPREHENSIVE METABOLIC [id number] 18:43:00* Test Item Value Reference Range Interpretation [...] RELATED TO RISK LEVELS ASRECOMMENDED BY THE JOYCE. HEART, LUNG, AND BLOOD INST. HDL CHOLESTEROL [...] result is a direct measurement.========= CBC W/AUTO [id number] 18:39:00* Test Item Value Reference Range Interpretation [...] = MDIFF) NO, ONLY SCAN NEEDED DIFFERENTIAL [id number] 18:39:00* Test Item Value Reference Range Interpretation Comments STAIN ACCEPTABILITY (test code = STN ACCEPTABLE) CABOT RINGS (test code = CAB) MORPHOLOGY COMMENT (test code = MOC) PLATELET ESTIMATE (test code = PLTEST) PLATELET MORPHOLOGY (test code = PLTMORPH) CBC W/AUTO [id number] 18:39:00* Test Item Value Reference Range Interpretation [...] = MDIFF) NO, ONLY SCAN NEEDED DIFFERENTIAL [id number] 18:39:00* Test Item Value Reference Range Interpretation Comments STAIN ACCEPTABILITY (test code = STN ACCEPTABLE) MORPHOLOGY COMMENT (test code = MOC) PLATELET ESTIMATE (test code = PLTEST) PLATELET MORPHOLOGY (test code = PLTMORPH) CBC W/AUTO [id number] 18:39:00* Test Item Value Reference Range Interpretation [...] = MDIFF) NO, ONLY SCAN NEEDED DIFFERENTIAL [id number] 18:39:00* Test Item Value Reference Range Interpretation Comments STAIN ACCEPTABILITY (test code = STN ACCEPTABLE) MORPHOLOGY COMMENT (test code = MOC) PLATELET ESTIMATE (test code = PLTEST) PLATELET MORPHOLOGY (test code = PLTMORPH) CBC W/AUTO [id number] 18:39:00* Test Item Value Reference Range Interpretation [...] = MDIFF) NO, ONLY SCAN NEEDED DIFFERENTIAL [id number] 18:39:00* Test Item Value Reference Range Interpretation Comments STAIN ACCEPTABILITY (test code = STN ACCEPTABLE) CABOT RINGS (test code = CAB) MORPHOLOGY COMMENT (test code = MOC) PLATELET ESTIMATE (test code = PLTEST) PLATELET MORPHOLOGY (test code = PLTMORPH) COMPREHENSIVE METABOLIC [id number] 18:28:00* Test Item Value Reference Range Interpretation [...] LDL (test code = LDL) mg/dL 100-129 Bedside Uikhrzy3920-01-57 07:27:00* Test Item Value Reference Range Interpretation Comments Bedside Glucose (test code = 33357-8) 111 70-120 Meter ID: [id number] [facility] Antibody, Dstko4159-12-92 10:55:00* Test Item Value Reference Range Interpretation Comments Hepatitis B Surface Antibody, Quant (test code = 5194-6) <3.0 Reference Range: Immunity>9.9 mIU/mLStatus of Immunity Anti-HBs Level Inconsistent with Immunity 0.0 - 9.9Consistent with Immunity >9.9[facility] Be Ywwykth0716-31-35 10:55:00* Test Item Value Reference Range Interpretation Comments Hepatitis Be Antigen (test code = 28254-9) Negative [facility] B Core Total Ccxpingo1669-46-70 10:55:00* Test Item Value Reference Range Interpretation Comments Hepatitis B Core Total Antibody (test code = 53988-0) Negative [facility] B Core IgM Zwziwcus4181-58-83 10:55:00* Test Item Value Reference Range Interpretation Comments Hepatitis B Core IgM Antibody (test code = 33051-3) Negative [facility] B Surface Antibody, Quant 2019-07-16 10:55:00* Test Item Value Reference Range Interpretation Comments Hepatitis B Surface Antibody, Quant (test code = 5194-6) <3.0 Reference Range: Immunity>9.9 mIU/mLStatus of Immunity Anti-HBs Level Inconsistent with Immunity 0.0 - 9.9Consistent with Immunity >9.9[facility] Be Uqiepqp1810-30-88 10:55:00* Test Item Value Reference Range Interpretation Comments Hepatitis Be Antigen (test code = 03151-8) Negative [facility] B Surface Zwkfasj1460-77-78 08:44:00* Test Item Value Reference Range Interpretation Comments Hepatitis B Surface Antigen (test code = 5196-1) Negative Negat [place] [facility] Be Siwsxafl6199-45-08 22:26:00 * Test Item Value Reference Range Interpretation Comments Hepatitis Be Antibody (test code = 72172-6) Negative Negative Performed at: [address] [id number] [employer] Integrator: Dasha Lr MD, Phone: [phone] [facility] Southtool Occult Ffpuu4334-58-64 09:51:00* Test Item Value Reference Range Interpretation Comments Stool Occult Blood (test code = 2335-8) NEGATIVE NEGATIVE [facility] Twphm3204-07-25 09:51:00* Test Item Value Reference Range Interpretation Comments Stool Occult Blood (test code = 2335-8) NEGATIVE NEGATIVE [facility] Southodium Cscff6940-33-22 06:41:00* Test Item Value Reference Range Interpretation Comments Sodium Level (test code = 2951-2) 136 136-145 [facility]evillePotassium Fmpga5887-71-65 06:41:00* Test Item Value Reference Range Interpretation Comments Potassium Level (test code = 2823-3) 4.5 3.5-5.1 [facility] BeevilleChloride Jqylz8710-52-21 06:41:00* Test Item Value Reference Range Interpretation Comments Chloride Level (test code = 2075-0) 102 98-107 [facility] BeevilleCarbon Dioxide Ojamp0509-13-67 06:41:00* Test Item Value Reference Range Interpretation Comments Carbon Dioxide Level (test code = 2028-9) 23 22-29 [facility] BeevilleAnion [id number] 06:41:00* Test Item Value Reference Range Interpretation Comments Anion Gap (test code = 66118-5) 15.5 8-16 [facility] BeevilleBlood Urea Zvioasko7673-33-62 06:41:00* Test Item Value Reference Range Interpretation Comments Blood Urea Nitrogen (test code = 3094-0) 53 7-26 H [facility] BeevilleCreatinine2019-12-16 06:41:00* Test Item Value Reference Range Interpretation Comments Creatinine (test code = 2160-0) 4.01 0.72-1.25 H [facility]evilleBUN/Creatinine Qymnj2282-74-69 06:41:00* Test Item Value Reference Range Interpretation Comments BUN/Creatinine Ratio (test code = 3097-3) 13 6-25 [facility] BeevilleEstimat Glomerular Filtration Rate 2019-07-15 06:41:00* Test Item Value Reference Range Interpretation Comments Estimat Glomerular Filtration Rate (test code = 368653635) 16 >60 L Ranges were taken from the National Kidney Disease Education Program and the [employer] advent[employer]al [employer] literature.Reference ranges:60 or greater: Wsmtjn23-75 ( for 3 consecutive months): Chronic kidney disease 15 or less: Kidney failureCHRISTUS Spohn Hospital BeevilleGlucose Jzddw6255-47-04 06:41:00* Test Item Value Reference Range Interpretation Comments Glucose Level (test code = ADT9355) 184 74-118 H [facility] BeevilleCalcium Otwso7984-25-87 06:41:00* Test Item Value Reference Range Interpretation Comments Calcium Level (test code = 52167-4) 8.4 8.4-10.2 [facility] Southto gastrointestinal hemoglobin zhhjgiaci6296-27-53 05:30:00* Test Item Value Reference Range Interpretation Comments Stool Occult Blood (test code = 2335-8) NEGATIVE NEGATIVE [facility] Southto gastrointestinal hemoglobin hwhchzwpg4821-10-01 05:30:00* Test Item Value Reference Range Interpretation Comments Stool Occult Blood (test code = 2335-8) NEGATIVE NEGATIVE [facility] BeevilleWhite Blood Gxjry8716-76-96 08:59:00* Test Item Value Reference Range Interpretation Comments White Blood Count (test code = 6690-2) 4.18 4.8-10.8 L [facility] BeevilleRed Blood Tyoew8372-12-46 08:59:00* Test Item Value Reference Range Interpretation Comments Red Blood Count (test code = 789-8) 2.65 4.3-5.7 L [facility] BeevilleHemoglobin2019-12-15 08:59:00* Test Item Value Reference Range Interpretation Comments Hemoglobin (test code = 32882-4) 8.2 14.0-18.0 L [facility] BeevilleHematocrit2019-12-15 08:59:00* Test Item Value Reference Range Interpretation Comments Hematocrit (test code = 4544-3) 26.0 38.2-49.6 L [facility] BeevilleMean Corpuscular Zubmzf2084-85-73 08:59:00* Test Item Value Reference Range Interpretation Comments Mean Corpuscular Volume (test code = 787-2) 98.1 81-99 [facility] BeevilleMean Corpuscular Zlmukphbkm4303-59-32 08:59:00* Test Item Value Reference Range Interpretation Comments Mean Corpuscular Hemoglobin (test code = 785-6) 30.9 28-32 [facility] BeevilleMean Corpuscular Hemoglobin Concent 2019-07-14 08:59:00* Test Item Value Reference Range Interpretation Comments Mean Corpuscular Hemoglobin Concent (test code = 786-4) 31.5 31-35 [facility] BeevilleRed Cell Distribution Chylv3897-56-05 08:59:00* Test Item Value Reference Range Interpretation Comments Red Cell Distribution Width (test code = 21268-9) 18.4 11.7 -14.4 H [facility] BeevillePlatelet Nmvfm5923-11-28 08:59:00* Test Item Value Reference Range Interpretation Comments Platelet Count (test code = 777-3) 90 140-360 L [facility] BeevilleNeutrophils (%) (Auto)2019-07-14 08:59:00 * Test Item Value Reference Range Interpretation Comments Neutrophils (%) (Auto) (test code = 27910-1) 72.3 38.7-80.0 [facility] BeevilleLymphocytes (%) (Auto)2019-07-14 08:59:00 * Test Item Value Reference Range Interpretation Comments Lymphocytes (%) (Auto) (test code = 736-9) 12.2 18.0-39.1 L [facility] BeevilleMonocytes (%) (Auto)2019-07-14 08:59:00* Test Item Value Reference Range Interpretation Comments Monocytes (%) (Auto) (test code = 5905-5) 10.3 4.4-11.3 [facility]evilleEosinophils (%) (Auto)2019-07-14 08:59:00 * Test Item Value Reference Range Interpretation Comments Eosinophils (%) (Auto) (test code = 713-8) 4.5 0.0-6.0 [facility]evilleBasophils (%) (Auto)2019-07-14 08:59:00* Test Item Value Reference Range Interpretation Comments Basophils (%) (Auto) (test code = 706-2) 0.5 0.0-1.0 [facility] BeevilleIM GRANULOCYTES %2019-07-14 08:59:00* Test Item Value Reference Range Interpretation Comments IM GRANULOCYTES % (test code = IM GRANULOCYTES %) 0.2 0.0- 1.0 [facility]evilleNeutrophils # (Auto)2019-07-14 08:59:00* Test Item Value Reference Range Interpretation Comments Neutrophils # (Auto) (test code = 751-8) 3.0 2.1-6.9 [facility] BeevilleLymphocytes # (Auto)2019-07-14 08:59:00* Test Item Value Reference Range Interpretation Comments Lymphocytes # (Auto) (test code = 18807-3) 0.5 1.0-3.2 L [facility] BeevilleMonocytes # (Auto)2019-07-14 08:59:00* Test Item Value Reference Range Interpretation Comments Monocytes # (Auto) (test code = 742-7) 0.4 0.2-0.8 [facility]evilleEosinophils # (Auto)2019-07-14 08:59:00* Test Item Value Reference Range Interpretation Comments Eosinophils # (Auto) (test code = 711-2) 0.2 0.0-0.4 [facility]evilleBasophils # (Auto)2019-07-14 08:59:00* Test Item Value Reference Range Interpretation Comments Basophils # (Auto) (test code = 704-7) 0.0 0.0-0.1 [facility] BeevilleAbsolute Immature Granulocyte (auto 2019-07-14 08:59:00* Test Item Value Reference Range Interpretation Comments Absolute Immature Granulocyte (auto (rupinder t code = Absolute Immature Granulocyte (auto) 0.01 0-0.1 [facility] BeevilleFerritin2019-12-14 09:20:00* Test Item Value Reference Range Interpretation Comments Ferritin (test code = 2276-4) 225.81 21.81-274.66 [facility] BeevilleDifferential Total Cells Counted 2019-07-13 08:32:00* Test Item Value Reference Range Interpretation Comments Differential Total Cells Counted (test code = Jarret morrisl Total Cells Counted) 100 [facility] BeevilleNeutrophils % (Manual)2019-07-13 08:32:00 * Test Item Value Reference Range Interpretation Comments Neutrophils % (Manual) (test code = 63641-7) 80 40-74 H [facility] BeevilleBand Neutrophils %2019-07-13 08:32:00* Test Item Value Reference Range Interpretation Comments Band Neutrophils % (test code = 764-1) 1 [facility] BeevilleLymphocytes % (Manual)2019-07-13 08:32:00 * Test Item Value Reference Range Interpretation Comments Lymphocytes % (Manual) (test code = 737-7) 12 19-48 L [facility] BeevilleMonocytes % (Manual)2019-07-13 08:32:00* Test Item Value Reference Range Interpretation Comments Monocytes % (Manual) (test code = 744-3) 5 3.4-9.0 [facility]evilleEosinophils % (Manual)2019-07-13 08:32:00 * Test Item Value Reference Range Interpretation Comments Eosinophils % (Manual) (test code = 714-6) 2 0-7 [facility] BeevillePlatelet Ydidmfxc5508-85-68 08:32:00* Test Item Value Reference Range Interpretation Comments Platelet Estimate (test code = 52773-9) MODERATELY DECREASED [facility] BeevillePlatelet Morphology Ngbkrjz3044-25-66 08:32:00* Test Item Value Reference Range Interpretation Comments Platelet Morphology Comment (test code = 68790-6) NORMAL [facility] BeevilleRed Cell Morphology Rkfmvgo6712-58-95 08:32:00* Test Item Value Reference Range Interpretation Comments Red Cell Morphology Comment (test code = 6742-1) NORMAL [facility] BeevilleBand Neutrophils %2019-07-13 08:32:00* Test Item Value Reference Range Interpretation Comments Band Neutrophils % (test code = 764-1) 1 [facility] BeevilleIron Rdapl8056-68-29 06:35:00* Test Item Value Reference Range Interpretation Comments Iron Level (test code = 2498-4) 37 65-175 L [facility] BeevilleTotal Iron Binding Lzjcxbtj2011-88-32 06:35:00* Test Item Value Reference Range Interpretation Comments Total Iron Binding Capacity (test code = 2500-7) 246 261-4 78 L [facility] BeevillePercent Iron Yamjfivgvk7522-80-24 06:35:00* Test Item Value Reference Range Interpretation Comments Percent Iron Saturation (test code = 2502-3) 15 15-50 [facility] BeevilleTransferrin2019-12-14 06:35:00* Test Item Value Reference Range Interpretation Comments Transferrin (test code = 3034-6) 176 174-364 [facility] BeevilleHemoglobin A1c Gmthydi2026-30-52 06:33:00 * Test Item Value Reference Range Interpretation Comments Hemoglobin A1c Percent (test code = Hemoglobin A1c Percent) 6.7 4.0-7.0 [facility] BeevilleHemoglobin A1c Ydqlgat8841-26-17 06:33:00 * Test Item Value Reference Range Interpretation Comments Hemoglobin A1c Percent (test code = Hemoglobin A1c Percent) 6.7 4.0-7.0 [facility] BeevilleManual blood band neutrophils form/100 ctadxlkzxh4470-94-12 04:15:00* Test Item Value Reference Range Interpretation Comments Band Neutrophils % (test code = 764-1) 1 [facility] BeevilleFluoroscopic procedure less than one hour hiittutu3560-90-63 04:15:00* Test Item Value Reference Range Interpretation Comments Hemoglobin A1c Percent (test code = Hemoglobin A1c Percent) 6.7 4.0-7.0 [facility] BeevilleManual blood band neutrophils form/100 gknrieyive0732-64-93 04:15:00* Test Item Value Reference Range Interpretation Comments Band Neutrophils % (test code = 764-1) 1 [facility] BeevilleFluoroscopic procedure less than one hour uzujvdrw3651-12-40 04:15:00* Test Item Value Reference Range Interpretation Comments Hemoglobin A1c Percent (test code = Hemoglobin A1c Percent) 6.7 4.0-7.0 [facility] XZ3504-88-41 15:37:00 [facility] [address] [address] Patient Name: DIGNA LAMB MR #: [id number] : 1965 Age/Sex: 54/M Req #: [id number] Adm Physician: CINDY ALVAREZ MD Ordered by: CINDY ALVAREZ MD Report #: [id number] Location: MED/SURG3 Room/Bed: [facility] Procedure: 1213-[address]/CT ABDOMEN/PELVIS WO Exam [...] PM D ictated By: CORY CAPUTO MD 7969 COPY TO: CINDY ALVAREZ MD CT CHEST EZ4511-54-26 15:37:[address] [place] [address] Patient Name: VIOLETTE LAMB MR #: [id number] : 1965 Age/Sex: 54/M Req #: [id number] Adm Physician: CINYD ALVAREZ MD Ordered by: CINDY ALVAREZ MD Report #: [id number] Location: MED/SURG3 Room/Bed: 295-1 Procedure: 1213-[address]/CT CHEST WO Exam [...] There is no hydroureteronephrosis bilaterally. No renal stone s are identified. The stomach, small, and large bowel are nondistended. The re is no evidence of obstruction. The appendix [...] MD 1550 COPY TO: CINDY ALVAREZ MD Vitamin B12 Zeefa3685-23-38 10:47:00* Test Item Value Reference Range Interpretation Comments Vitamin B12 Level (test code = 65303-0) 710 213-816 [facility] BeevilleThyroid Stimulating Hormone (TSH) 2019-07-12 10:29:00* Test Item Value Reference Range Interpretation Comments Thyroid Stimulating Hormone (TSH) (test code = 29210-9) 1.875 0.350-4.940 [facility] BeevilleThyroid Stimulating Hormone (TSH) 2019-07-12 10:29:00* Test Item Value Reference Range Interpretation Comments Thyroid Stimulating Hormone (TSH) (test code = 63633-9) 1.875 0.350-4.940 [facility] Southerum or plasma thyrotropin measurement by detection limit <= 0.005 miu/l (units/volume)2019-07-12 04:15:00* Test Item Value Reference Range Interpretation Comments Thyroid Stimulating Hormone (TSH) (test code = 82737-8) 1.875 0.350-4.940 [facility] Southerum or plasma thyrotropin measurement by detection limit <= 0.005 miu/l (units/volume)2019-07-12 04:15:00* Test Item Value Reference Range Interpretation Comments Thyroid Stimulating Hormone (TSH) (test code = 29755-1) 1.875 0.350-4.940 [facility] BeevilleTotal Pdfprdwqj5082-01-10 21:11:00* Test Item Value Reference Range Interpretation Comments Total Bilirubin (test code = 1975-2) 1.7 0.2-1.2 H [facility] BeevilleDirect Quroatkit8635-11-07 21:11:00* Test Item Value Reference Range Interpretation Comments Direct Bilirubin (test code = 17443-6) 1.4 0.0-0.5 H [facility] BeevilleAspartate Amino Transf (AST/SGOT) 2019-07-11 21:11:00* Test Item Value Reference Range Interpretation Comments Aspartate Amino Transf (AST/SGOT) (test code = Aspartate Amino Transf (AST/SGOT)) 28 5-34 [facility] BeevilleAlanine Aminotransferase (ALT/SGPT) 2019-07-11 21:11:00* Test Item Value Reference Range Interpretation Comments Alanine Aminotransferase (ALT/SGPT) (test code = 1742-6) 50 0-55 [facility] BeevilleTotal Hnhmxpt6111-19-31 21:11:00* Test Item Value Reference Range Interpretation Comments Total Protein (test code = 2885-2) 6.5 6.5-8.1 [facility] BeevilleAlbumin2019-12-12 21:11:00* Test Item Value Reference Range Interpretation Comments Albumin (test code = 1751-7) 2.7 3.5-5.0 L [facility] BeevilleAlkaline Miwefbgurzz8984-98-24 21:11:00* Test Item Value Reference Range Interpretation Comments Alkaline Phosphatase (test code = 6768-6) 714 40-150 H [facility] Southerum hepatitis B virus surface antibody assay by radioimmunoassay (units/volume)2019-07-11 19:36:00* Test Item Value Reference Range Interpretation Comments Hepatitis B Surface Antibody, Quant (test code = 5194-6) <3.0 Reference Range: Immunity>9.9 mIU/mLStatus of Immunity Anti-HBs Level Inconsistent with Immunity 0.0 - 9.9Consistent with Immunity >9.9[facility] hepatitis B virus e antigen detection by enzyme immunoassay 2019-07-11 19:36:00* Test Item Value Reference Range Interpretation Comments Hepatitis Be Antigen (test code = 37943-4) Negative [facility] hepatitis B virus surface antibody assay by radioimmunoassay (units/volume)2019-07-11 19:36:00* Test Item Value Reference Range Interpretation Comments Hepatitis B Surface Antibody, Quant (test code = 5194-6) <3.0 Reference Range: Immunity>9.9 mIU/mLStatus of Immunity Anti-HBs Level Inconsistent with Immunity 0.0 - 9.9Consistent with Immunity >9.9[facility] hepatitis B virus e antigen detection by enzyme immunoassay 2019-07-11 19:36:00* Test Item Value Reference Range Interpretation Comments Hepatitis Be Antigen (test code = 44164-1) Negative [facility] PF6520-45-03 12:55:00* Test Item Value Reference Range Interpretation Comments Creatine Kinase MB (test code = 00904-0) 4.00 0-5.0 [facility]eville[facility]roponin [id number] 12:55:00* Test Item Value Reference Range Interpretation Comments Troponin I (test code = KXJ2618) 0.032 0-0.300 [facility] Natriuretic Sqrbqwv2681-17-15 12:48:00* Test Item Value Reference Range Interpretation Comments B-Type Natriuretic Peptide (test code = 56983-1) 3663.2 0-100 H [facility] Natri[facility]tic Joezmft8476-70-58 12:48:00* Test Item Value Reference Range Interpretation Comments B-Type Natriuretic Peptide (test code = 72135-2) 3663.2 0-100 H [facility]eville[facility]rine XFH2106-75-30 12:46:00* Test Item Value Reference Range Interpretation Comments Urine WBC (test code = 5821-4) 6-10 0-5 H [facility]eville[facility] DMH8689-40-16 12:46:00* Test Item Value Reference Range Interpretation Comments Urine RBC (test code = 26834-6) 0-5 0-5 [facility] Ibxqykfa3310-17-00 12:46:00* Test Item Value Reference Range Interpretation Comments Urine Bacteria (test code = 69989-0) FEW NONE [facility]eville[facility] Epithelial Jtzgp3886-67-94 12:46:00 * Test Item Value Reference Range Interpretation Comments Urine Epithelial Cells (test code = 33658-3) FEW NONE [facility]eville[facility] SOE3913-67-56 12:46:00* Test Item Value Reference Range Interpretation Comments Urine WBC (test code = 5821-4) 6-10 0-5 H [facility]eville[facility] WXF1290-09-76 12:46:00* Test Item Value Reference Range Interpretation Comments Urine RBC (test code = 24879-6) 0-5 0-5 [facility] Ogjusefl7856-48-84 12:46:00* Test Item Value Reference Range Interpretation Comments Urine Bacteria (test code = 46350-8) FEW NONE [facility]eville[facility] Epithelial Ecntq5801-40-04 12:46:00 * Test Item Value Reference Range Interpretation Comments Urine Epithelial Cells (test code = 70556-3) FEW NONE [facility]eville[facility] Ecssy7489-92-58 12:43:00* Test Item Value Reference Range Interpretation Comments Urine Color (test code = 5778-6) YELLOW YELLOW [facility] Jcglfbd1250-01-88 12:43:00* Test Item Value Reference Range Interpretation Comments Urine Clarity (test code = 04804-1) SL CLOUDY CLEAR H [facility]evilleU[facility] Specific Xuwczxs1451-39-16 12:43:00 * Test Item Value Reference Range Interpretation Comments Urine Specific [place] (test code = 5811-5) 1.025 1.010-1.02 5 [facility]eville[facility] oW0980-02-83 12:43:00* Test Item Value Reference Range Interpretation Comments Urine pH (test code = 64885-2) 6 5-7 [facility] Leukocyte Npbiknvo1567-30-59 12:43:00* Test Item Value Reference Range Interpretation Comments Urine Leukocyte Esterase (test code = 5799-2) MODERATE NEGATIVE [facility]eville[facility] Uxpvwwb1676-62-80 12:43:00* Test Item Value Reference Range Interpretation Comments Urine Nitrite (test code = 60821-3) NEGATIVE NEGATIVE [facility] Xuwmfbg2138-11-52 12:43:00* Test Item Value Reference Range Interpretation Comments Urine Protein (test code = 5804-0) 2+ NEGATIVE H [facility] Glucose (UA)2019-07-11 12:43:00* Test Item Value Reference Range Interpretation Comments Urine Glucose (UA) (test code = 2349-9) 1+ NEGATIVE H [facility] Idnnzyy4416-72-88 12:43:00* Test Item Value Reference Range Interpretation Comments Urine Ketones (test code = 69997-2) NEGATIVE NEGATIVE [facility] Favdqxlhesta5035-65-87 12:43:00* Test Item Value Reference Range Interpretation Comments Urine Urobilinogen (test code = 82467-9) 0.2 0.2-1 [facility] Ohreavmkz0498-72-59 12:43:00* Test Item Value Reference Range Interpretation Comments Urine Bilirubin (test code = 1978-6) SMALL NEGATIVE [facility] Xmqmo9218-59-94 12:43:00* Test Item Value Reference Range Interpretation Comments Urine Blood (test code = 61865-6) MODERATE NEGATIVE [facility]eville[facility] Rurgj3961-59-37 12:43:00* Test Item Value Reference Range Interpretation Comments Urine Color (test code = 5778-6) YELLOW YELLOW [facility] Dsrvszx4649-90-12 12:43:00* Test Item Value Reference Range Interpretation Comments Urine Clarity (test code = 90808-1) SL CLOUDY CLEAR H [facility]eville[facility] Specific Yotcqyp6241-61-23 12:43:00 * Test Item Value Reference Range Interpretation Comments Urine Specific [place] (test code = 5811-5) 1.025 1.010-1.02 5 [facility] uU2534-71-20 12:43:00* Test Item Value Reference Range Interpretation Comments Urine pH (test code = 31042-7) 6 5-7 [facility] Leukocyte Xoniqxgw5966-67-04 12:43:00* Test Item Value Reference Range Interpretation Comments Urine Leukocyte Esterase (test code = 5799-2) MODERATE NEGATIVE [facility] Bfmlutg7804-64-04 12:43:00* Test Item Value Reference Range Interpretation Comments Urine Nitrite (test code = 37312-3) NEGATIVE NEGATIVE [facility] Sdevrxr0871-50-06 12:43:00* Test Item Value Reference Range Interpretation Comments Urine Protein (test code = 5804-0) 2+ NEGATIVE H [facility] Glucose (UA)2019-07-11 12:43:00* Test Item Value Reference Range Interpretation Comments Urine Glucose (UA) (test code = 2349-9) 1+ NEGATIVE H [facility] Bzqfdww2126-07-18 12:43:00* Test Item Value Reference Range Interpretation Comments Urine Ketones (test code = 46666-4) NEGATIVE NEGATIVE [facility] Cmkiwulzojjv8907-71-75 12:43:00* Test Item Value Reference Range Interpretation Comments Urine Urobilinogen (test code = 35164-9) 0.2 0.2-1 [facility] Xbahizdvh4019-84-32 12:43:00* Test Item Value Reference Range Interpretation Comments Urine Bilirubin (test code = 1978-6) SMALL NEGATIVE [facility] Kbxoo8256-89-09 12:43:00* Test Item Value Reference Range Interpretation Comments Urine Blood (test code = 08854-1) MODERATE NEGATIVE [facility]evilleInfluenza Virus Types A,B Antigen 2019-07-11 12:41:00* Test Item Value Reference Range Interpretation Comments Influenza Virus Types A,B Antigen (test code = 69978-0) NEGATIVE NEGATIVE [facility]evilleMagnesium Ufcsu0267-97-54 12:41:00* Test Item Value Reference Range Interpretation Comments Magnesium Level (test code = 25465-8) 2.0 1.3-2.1 [facility]evilleGlobulin2019-12-12 12:41:00* Test Item Value Reference Range Interpretation Comments Globulin (test code = 01904-9) 3.9 2.3-3.5 H [facility]evilleAlbumin/Globulin Mpscr2295-85-00 12:41:00 * Test Item Value Reference Range Interpretation Comments Albumin/Globulin Ratio (test code = 1759-0) 0.7 0.8-2.0 L [facility]evilleCreatine Lrwosj9589-75-80 12:41:00* Test Item Value Reference Range Interpretation Comments Creatine Kinase (test code = 2157-6) 97 30-200 [facility]evilleGroup A Streptococcus Wupuab4620-13-36 12:41:00* Test Item Value Reference Range Interpretation Comments Group A Streptococcus Screen (test code = 45491-7) NEGATIVE NEG ATIVE [facility]evilleMagnesium Qtgtu1892-61-71 12:41:00* Test Item Value Reference Range Interpretation Comments Magnesium Level (test code = 49592-1) 2.0 1.3-2.1 [facility]eville[facility] A Streptococcus Kfovwm0550-03-16 12:41:00* Test Item Value Reference Range Interpretation Comments Group A Streptococcus Screen (test code = 73704-7) NEGATIVE NEG ATIVE [facility]evilleProthrombin Prca3463-89-15 12:22:00* Test Item Value Reference Range Interpretation Comments Prothrombin Time (test code = 5902-2) 14.6 11.9-14.5 H [facility]evilleProthromb Time International Ratio 2019-07-11 12:22:00* Test Item Value Reference Range Interpretation Comments Prothromb Time International Ratio (test code = 6301-6) 1.09 Oral Anticoagulant Therapy INR Values:1. Low Intensity Therapy 1.5 - 2.02 . Moderate Intensity Therapy 2.0 - 3.03. High Intensity Therapy(1) 2.5 - 3. 54. High Intensity Therapy(2) 3.0 - 4.05. Panic Value INR > 5.0 [facility]evilleAct[facility] Partial Thromboplast Time 2019-07-11 12:22:00* Test Item Value Reference Range Interpretation Comments Activated Partial Thromboplast Time (test code = 32020-7) 28.9 23.8-35.5 [facility]eville[facility]ST [facility]INGLE ([facility]ABLE)2019-07-11 11:31:00 [place] [address] Patient Name: VIOLETTE LAMB MR #: [id number] : 1965 Age/Sex: 54/M Req #: [id number] Adm Physician: Ordered by: GERALDINE GIRON TRANSPORTATION MAINTENANCE SPECIALIST Report #: [id number] Location: ER Room/Bed: Procedure: DX/CHEST SINGLE (PORTABLE) [...] :32 AM Dictated By: HAYDEN CANNON MD 31 Transcribed By: DARRON on 07/11/191131 COPY TO : GERALDINE GIRON NP Serum or plasma magnesium measurement (mass/volume)2019-07-11 11:00:00* Test Item Value Reference Range Interpretation Comments Magnesium Level (test code = 77102-1) 2.0 1.3-2.1 [facility]-xPnn9743-41-94 11:00:00* Test Item Value Reference Range Interpretation Comments B-Type Natriuretic Peptide (test code = 84013-5) 3663.2 0-100 [facility] Southtreptococcus pyogenes antigen detection in eurwvw7526-10-19 11:00:00* Test Item Value Reference Range Interpretation Comments Group A Streptococcus Screen (test code = 17560-0) NEGATIVE NEG ATIVE [facility] Southerum or plasma magnesium measurement (mass/volume)2019-07-11 11:00:00* Test Item Value Reference Range Interpretation Comments Magnesium Level (test code = 53881-4) 2.0 1.3-2.1 [facility]-dEad0088-35-22 11:00:00* Test Item Value Reference Range Interpretation Comments B-Type Natriuretic Peptide (test code = 24272-6) 3663.2 0-100 [facility] Southtreptococcus pyogenes antigen detection in xyqdeh5728-49-68 11:00:00* Test Item Value Reference Range Interpretation Comments Group A Streptococcus Screen (test code = 86053-5) NEGATIVE NEG ATIVE [facility]evilleUrine color zejiqpsfcrmzq5155-76-04 10:51:00* Test Item Value Reference Range Interpretation Comments Urine Color (test code = 5778-6) YELLOW YELLOW [facility]evilleU[facility] aiomqyx5261-98-08 10:51:00* Test Item Value Reference Range Interpretation Comments Urine Clarity (test code = 34192-8) SL CLOUDY CLEAR [facility] Southpecific gravity of Urine by Test strip 2019-07-11 10:51:00* Test Item Value Reference Range Interpretation Comments Urine Specific [place] (test code = 5811-5) 1.025 1.010-1.02 5 [facility]eville[facility] pH measurement by automated test grcdu1856-28-71 10:51:00* Test Item Value Reference Range Interpretation Comments Urine pH (test code = 33900-4) 6 5-7 [facility]eville[facility] leukocyte esterase detection by ptygtdzz8034-91-18 10:51:00* Test Item Value Reference Range Interpretation Comments Urine Leukocyte Esterase (test code = 5799-2) MODERATE NEGATIVE [facility]evilleU[facility] nitrite dmyfsjray7158-43-54 10:51:00* Test Item Value Reference Range Interpretation Comments Urine Nitrite (test code = 64209-1) NEGATIVE NEGATIVE [facility]eville[facility] protein measurement by test strip (mass/volume)2019-07-11 10:51:00* Test Item Value Reference Range Interpretation Comments Urine Protein (test code = 5804-0) 2+ NEGATIVE [facility]eville[facility] glucose qwiqcyvdf7706-01-01 10:51:00* Test Item Value Reference Range Interpretation Comments Urine Glucose (UA) (test code = 2349-9) 1+ NEGATIVE [facility]eville[facility] ketones detection by automated test drbwd2823-92-76 10:51:00* Test Item Value Reference Range Interpretation Comments Urine Ketones (test code = 71942-8) NEGATIVE NEGATIVE [facility]evilleUrine urobilinogen measurement by test strip (mass/volume)2019-07-11 10:51:00* Test Item Value Reference Range Interpretation Comments Urine Urobilinogen (test code = 75965-1) 0.2 0.2-1 [facility]eville[facility] total bilirubin measurement (mass/volume)2019-07-11 10:51:00* Test Item Value Reference Range Interpretation Comments Urine Bilirubin (test code = 1978-6) SMALL NEGATIVE [facility]evilleU[facility] erythrocytes udwqnsxur7038-17-24 10:51:00* Test Item Value Reference Range Interpretation Comments Urine Blood (test code = 48318-7) MODERATE NEGATIVE [facility]evilleAutomated urine sediment leukocyte count by microscopy (number/high power field)2019-07-11 10:51:00* Test Item Value Reference Range Interpretation Comments Urine WBC (test code = 5821-4) 6-10 0-5 [facility]evilleErythrocytes detection in urine sediment by light neiupvrgsc0710-65-43 10:51:00* Test Item Value Reference Range Interpretation Comments Urine RBC (test code = 84828-2) 0-5 0-5 [facility]evilleBacteria detection in urine sediment by light shboxddobl3733-77-54 10:51:00* Test Item Value Reference Range Interpretation Comments Urine Bacteria (test code = 99529-8) FEW NONE [facility]evilleEpithelial cells detection in urine sediment by light fzymxevsua0111-06-24 10:51:00* Test Item Value Reference Range Interpretation Comments Urine Epithelial Cells (test code = 88190-0) FEW NONE [facility]evilleUrine color gvfxtlazjcwsh7066-12-78 10:51:00* Test Item Value Reference Range Interpretation Comments Urine Color (test code = 5778-6) YELLOW YELLOW [facility]evilleUrine fmzadva9355-57-16 10:51:00* Test Item Value Reference Range Interpretation Comments Urine Clarity (test code = 08046-0) SL CLOUDY CLEAR [facility] Southpecific gravity of Urine by Test strip 2019-07-11 10:51:00* Test Item Value Reference Range Interpretation Comments Urine Specific [place] (test code = 5811-5) 1.025 1.010-1.02 5 [facility]evilleU[facility] pH measurement by automated test xcumt7073-22-46 10:51:00* Test Item Value Reference Range Interpretation Comments Urine pH (test code = 52899-5) 6 5-7 [facility]evilleU[facility] leukocyte esterase detection by whtvhxkv5293-90-69 10:51:00* Test Item Value Reference Range Interpretation Comments Urine Leukocyte Esterase (test code = 5799-2) MODERATE NEGATIVE [facility]evilleU[facility] nitrite upzwbyptm2743-03-61 10:51:00* Test Item Value Reference Range Interpretation Comments Urine Nitrite (test code = 49120-4) NEGATIVE NEGATIVE [facility]evilleUrine protein measurement by test strip (mass/volume)2019-07-11 10:51:00* Test Item Value Reference Range Interpretation Comments Urine Protein (test code = 5804-0) 2+ NEGATIVE [facility]evilleU[facility] glucose pbysolsbz3353-38-00 10:51:00* Test Item Value Reference Range Interpretation Comments Urine Glucose (UA) (test code = 2349-9) 1+ NEGATIVE [facility]evilleUrine ketones detection by automated test vnzpt8499-35-12 10:51:00* Test Item Value Reference Range Interpretation Comments Urine Ketones (test code = 46703-2) NEGATIVE NEGATIVE [facility]evilleUrine urobilinogen measurement by test strip (mass/volume)2019-07-11 10:51:00* Test Item Value Reference Range Interpretation Comments Urine Urobilinogen (test code = 68067-4) 0.2 0.2-1 [facility]eville[facility] total bilirubin measurement (mass/volume)2019-07-11 10:51:00* Test Item Value Reference Range Interpretation Comments Urine Bilirubin (test code = 1978-6) SMALL NEGATIVE [facility]evilleU[facility] erythrocytes gfpqtphkw7138-28-43 10:51:00* Test Item Value Reference Range Interpretation Comments Urine Blood (test code = 80202-8) MODERATE NEGATIVE [facility] BeevilleAutomated urine sediment leukocyte count by microscopy (number/high power field)2019-07-11 10:51:00* Test Item Value Reference Range Interpretation Comments Urine WBC (test code = 5821-4) 6-10 0-5 [facility]evilleErythrocytes detection in urine sediment by light rvmcbfiykb0705-63-59 10:51:00* Test Item Value Reference Range Interpretation Comments Urine RBC (test code = 91487-2) 0-5 0-5 [facility]evilleBacteria detection in urine sediment by light yqkrdmivfr9023-27-33 10:51:00* Test Item Value Reference Range Interpretation Comments Urine Bacteria (test code = 48353-2) FEW NONE [facility] BeevilleEpithelial cells detection in urine sediment by light ghhgkzvzvr8538-40-96 10:51:00* Test Item Value Reference Range Interpretation Comments Urine Epithelial Cells (test code = 57169-9) FEW NONE [facility] Southodium Gvlgv4224-10-02 15:21:00* Test Item Value Reference Range Interpretation Comments Sodium Level (test code = 2951-2) 137 136-145 [facility]evillePotassium Zppqy7512-37-75 15:21:00* Test Item Value Reference Range Interpretation Comments Potassium Level (test code = 2823-3) 3.8 3.5-5.1 [facility]evilleChloride Ekihs0844-30-77 15:21:00* Test Item Value Reference Range Interpretation Comments Chloride Level (test code = 2075-0) 97 98-107 L [facility] BeevilleCarbon Dioxide Jgfip7355-08-68 15:21:00* Test Item Value Reference Range Interpretation Comments Carbon Dioxide Level (test code = 2028-9) 29 22-29 [facility] BeevilleAnion Zmz9702-87-33 15:21:00* Test Item Value Reference Range Interpretation Comments Anion Gap (test code = 05311-3) 14.8 8-16 [facility]evilleBlood Urea Ikymjyct8487-39-07 15:21:00* Test Item Value Reference Range Interpretation Comments Blood Urea Nitrogen (test code = 3094-0) 28 7-26 H [facility] BeevilleCreatinine2019-11-18 15:21:00* Test Item Value Reference Range Interpretation Comments Creatinine (test code = 2160-0) 4.43 0.72-1.25 H [facility]evilleBUN/Creatinine Qqqcm5726-33-75 15:21:00* Test Item Value Reference Range Interpretation Comments BUN/Creatinine Ratio (test code = 3097-3) 6 6-25 [facility] BeevilleEstimat Glomerular Filtration Rate 2019-06-17 15:21:00* Test Item Value Reference Range Interpretation Comments Estimat Glomerular Filtration Rate (test code = 141040088) 14 >60 L Ranges were taken from the National Kidney Disease Education Program and the [employer] literature.Reference ranges:60 or greater: Jqkrwp96-86 ( for 3 consecutive months): Chronic kidney disease 15 or less: Kidney failureCHRISTUS [facility] BeevilleGlucose Wfips0312-35-12 15:21:00* Test Item Value Reference Range Interpretation Comments Glucose Level (test code = VWR0177) 125 74-118 H [facility] BeevilleCalcium Ssbka1616-00-39 15:21:00* Test Item Value Reference Range Interpretation Comments Calcium Level (test code = 58958-1) 9.2 8.4-10.2 [facility]
[2019-12-26] MEDS ORDERED: PHENYLEPHRINE HCL 1% NA SPR 15 ML BTL ONE ×2 (08:25→08:30)
[2019-12-26] MEDS ORDERED: OXYMETAZOLINE HCL 0.05% NAS 1 SPRAY BTL ONE (08:30)
[2019-12-26 08:54] LABS: BASOPHILS % 0.5 % (0.0-1.0); EOSINOPHILS # (AUTO) 0.2 (0.0-0.4); EOSINOPHILS % 2.3 % (0.0-6.0); HEMATOCRIT 24.8 % (38.2-49.6); HEMOGLOBIN 8.2 g/dL (14.0-18.0); LYMPHOCYTES # (AUTO) 0.5 (1.0-3.2); LYMPHOCYTES % 8.2 % (18.0-39.1); MEAN CORPUSCULAR HEMOGLOBIN 32.7 pg (28-32); MEAN CORPUSCULAR HGB CONC 33.1 g/dL (31-35); MEAN CORPUSCULAR VOLUME 98.8 fL (81-99); MONOCYTES # (AUTO) 0.6 (0.2-0.8); MONOCYTES % 9.8 % (4.4-11.3); NEUTROPHILS # (AUTO) 5.2 (2.1-6.9); NEUTROPHILS % 78.9 % (38.7-80.0); PLATELET COUNT 136 x10e3/uL (140-360); RED BLOOD COUNT 2.51 x10e6/uL (4.3-5.7); RED CELL DISTRIBUTION WIDTH 13.9 % (11.7-14.4)
[2019-12-26 09:10] LABS: INR 1.03; PROTHROMBIN TIME 14.1 seconds (11.9-14.5)
[2019-12-26 09:11] LABS: PARTIAL THROMBOPLASTIN TIME 31.2 seconds (23.8-35.5)
--- NOTE | 2019-12-26 09:52 | Emergency Department Note ---
History of Present Illnes History of Present Illness Chief Complaint: General Medicine Complaints History of Present Illness This is a 54 year old male pt here yesterday d/c'd with instructions to follow up with [facility] and PCP; states he went and Dr Faustin sent pt here today for ultrasound and pt nose started to bleed pt sent to er for further eval. Historian: Patient Arrival Mode: Car Acid Bath Mixer Required: No Onset (how long ago): minute(s) (15 MINS) Location: RIGHT NARE Quality: BLEEDING Radiation: non-radiation Severity: moderate Onset quality: sudden Timing of current episode: intermittent (X SEVERAL DAYS, SEEN TWICE HERE IN ED ALREADY THIS WEEK) Progression: waxing and waning Chronicity: new Context: recent illness Relieving factors: none Exacerbating factors: none Associated symptoms: denies other symptoms Treatments prior to arrival: none Past Medical/Family History Physician Review I have reviewed the patient's past medical and family history. Any updates have been documented here. Past Medical History Recent Fever: No Clinical Suspicion of Infectio: No New/Unexplained Change in Ment: No Past Medical History: Hypertension, Diabetes, ESRD, Chronic Kidney Disease Other Medical History: ESRD, dialysis, legally blind Other Surgery: Heart Surgery Social History Smoking Cessation: Former smoker Alcohol Use: Occasional Any Illegal Drug Use: No TB Exposure/Symptoms: No Physically hurt or threatened: No Other Last Tetanus: UTD Any Pre-Existing Lines (PICC,: No Is patient up to date on immun: Yes Last Flu: UTD Last Pneumovax: none Review of Systems Review of Systems Constitutional: no symptoms EENTM: as per HPI Cardiovascular: no symptoms Respiratory: no symptoms Gastrointestinal: other (ABD DISTENSION) Genitourinary: no symptoms Musculoskeletal: no symptoms Neurological: no symptoms Psychological: no symptoms Endocrine: no symptoms Hematological/Lymphatic: no symptoms Review of other systems All other systems reviewed and negative. Physical Exam Related Data Allergies: Coded Allergies: No Known Allergies (Unverified , 06/17/19) Triage Vital Signs Vital Signs Date Time Temp Pulse Resp B/P (MAP) Pulse Ox O2 Delivery O2 Flow Rate FiO2 12/26/19 08:25 98.5 71 16 154/78 98 Vital signs reviewed: Yes Physical Exam CONSTITUTIONAL Constitutional: well-developed, well-nourished HENT HENT: other (RIGHT NARE WITH MILD ACTIVE BLEEDING IN TRIAGE ) HENT L/R: left ext ear normal, right ext ear normal EYES Eyes: PERRL, conjunctivae normal NECK Neck: ROM normal PULMONARY Pulmonary: effort normal, breath sounds normal CARDIOVASCULAR Cardiovascular: regular rhythm, heart sounds normal, capillary refill normal, normal rate GASTROINTESTINAL Abdominal: nontender, bowel sounds normal, distension (MILD WITH ? FLUID WAVE) GENITOURINARY Genitourinary: exam deferred SKIN Skin: warm, dry MUSCULOSKELETAL Musculoskeletal: ROM normal NEUROLOGICAL Neurological: alert, oriented x 3, no gross motor or sensory deficits PSYCHOLOGICAL Psychological: mood/affect normal, judgement normal Results Laboratory Result Diagram: 12/26/19 0845 Laboratory Laboratory Tests Test 12/26/19 08:45 White Blood Count 6.56 x10e3/uL (4.8-10.8) Red Blood Count 2.51 x10e6/uL (4.3-5.7) Hemoglobin 8.2 g/dL (14.0-18.0) Hematocrit 24.8 % (38.2-49.6) Mean Corpuscular Volume 98.8 fL (81-99) Mean Corpuscular Hemoglobin 32.7 pg (28-32) Mean Corpuscular Hemoglobin Concent 33.1 g/dL (31-35) Red Cell Distribution Width 13.9 % (11.7-14.4) Platelet Count 136 x10e3/uL (140-360) Neutrophils (%) (Auto) 78.9 % (38.7-80.0) Lymphocytes (%) (Auto) 8.2 % (18.0-39.1) Monocytes (%) (Auto) 9.8 % (4.4-11.3) Eosinophils (%) (Auto) 2.3 % (0.0-6.0) Basophils (%) (Auto) 0.5 % (0.0-1.0) Neutrophils # (Auto) 5.2 (2.1-6.9) Lymphocytes # (Auto) 0.5 (1.0-3.2) Monocytes # (Auto) 0.6 (0.2-0.8) Eosinophils # (Auto) 0.2 (0.0-0.4) Basophils # (Auto) 0.0 (0.0-0.1) Absolute Immature Granulocyte (auto 0.02 x10e3/uL (0-0.1) Prothrombin Time 14.1 seconds (11.9-14.5) Prothromb Time International Ratio 1.03 Activated Partial Thromboplast Time 31.2 seconds (23.8-35.5) Lab results reviewed: Yes Laboratory comments CHRONIC ANEMIA, NORMAL COAG'S Diagnostics Tests Diagnostic test(s) reviewed: Yes Procedures Epistaxis Control Time out performed: Yes Nostril: right Nose prepped with: phenylephrine Direct inspection: unable to visualize Inspection method: otoscope Results of treatment: bleeding controlled, treatment well tolerated Complications: none Critical Care Time Subsequent provider I assumed direction of critical care for this patient from another provider of my specialty. Assessment & Plan Assessment & Plan Final Impression: (1) Epistaxis Assessment & Plan I SPOKE WITH DR Talha CONDON - HE WILL SEE PT NOW IN OFFICE PT WITH NO BLEEDING AFTER AFRIN, LABS STABLE Depart Disposition: HOME, SELF-CARE Last Vital Signs Date Time Temp Pulse Resp B/P (MAP) Pulse Ox O2 Delivery O2 Flow Rate FiO2 12/26/19 08:25 98.5 71 16 154/78 98 Home Meds Reported Medications Lisinopril (LISINOPRIL) 10 Mg Tablet, 20 MG PO DAILY, #30 TAB 07/11/19 Tamsulosin Hcl* (FLOMAX*) 0.4 Mg Cap, 0.4 MG PO DAILY, #30 CAP 07/11/19 Carvedilol (CARVEDILOL) 12.5 Mg Tablet, 25 MG PO BID, #60 TAB 07/11/19 Metformin Hcl (METFORMIN HCL) 500 Mg Tablet, 500 MG PO DAILY, #60 TAB 07/11/19 Medications in the ED Phenylephrine HCl 15 spray STK-MED ONCE .ROUTE ; Start 12/26/19 at 08:25; Stop 12/26/19 at 08:20; Status DC Phenylephrine HCl 2 spray ONCE ONCE NA Last administered on 12/26/19at 08:29; Admin Dose 3 SPRAY; Start 12/26/19 at 08:30; Stop 12/26/19 at 08:38; Status DC Oxymetazoline HCl ONCE ONCE NA ; Start 12/26/19 at 08:30; Stop 12/26/19 at 08:38; Status DC EMETERIO BRYANT MD December 26, 2019 09:51
== END 2019-12-26 10:08 | disposition home or self-care (01) ==
LOC: ER 08:15
DX: R04.0 Epistaxis (principal); I12.0 Hypertensive chronic kidney disease with stage 5 chronic kidney disease or end stage renal disease; E11.22 Type 2 diabetes mellitus with diabetic chronic kidney disease; N18.6 End stage renal disease; Z99.2 Dependence on renal dialysis; Z79.84 Long term (current) use of oral hypoglycemic drugs
CPT/HCPCS: 36415; 85025; 85610; 85730; 99284

== ENCOUNTER → 2019-12-26 | Outpatient (CLI) | payer MEDICARE ==
--- NOTE | 2019-12-26 09:45 | Diagnostic Imaging Report ---
EXAM: US ABDOMEN COMPLETE DATE: 12/26/2019 8:01 AM INDICATION: Liver cirrhosis COMPARISON: Chest CT 07/12/2019 TECHNIQUE: Transverse and longitudinal godlberg scale and color doppler sonographic images of the upper abdomen were obtained. FINDINGS: LIVER 18.1 cm in the right midclavicular line. Normal echogenicity of the liver with normal contour, no masses. SPLEEN 15.0 cm in maximum diameter. Normal echogenicity, no masses. GALLBLADDER 3 mm gallbladder polyp. No gallbladder wall thickening, distension, stone, or pericholecystic fluid. Negative reported sonographic Fonseca's sign. The gallbladder wall measures 4mm BILE DUCTS No intra nor extra-hepatic biliary dilation. Common bile duct measures 4mm PANCREAS: Visualized portions are normal. RIGHT KIDNEY: 13.3 cm Echogenicity: Normal Collecting System: No hydronephrosis Stones: None Cyst/Mass: None LEFT KIDNEY: 12.9 cm Echogenicity: Normal Collecting System: No hydronephrosis Stones: None Cyst/Mass: None VESSELS: Aorta: Visualized portions are within normal size limits Inferior Vena Cava: Visualized portions are normal Main Portal Vein: 1.2 cm, normal size with hepatopetal flow. FREE FLUID: Trace ascites. IMPRESSION: Hepatomegaly and splenomegaly. No definite cirrhotic liver morphology. 3 mm gallbladder polyp. Signed by: Jami Angelo MD on 12/26/2019 9:42 AM
== END ==
LOC: US 07:33
PROVIDERS: ATTEND Family Medicine
DX: K74.60 Unspecified cirrhosis of liver (principal)
CPT/HCPCS: 76700

== ENCOUNTER 2019-12-29 10:51 | Emergency (ER) | payer MEDICARE, OTHER ==
[~2019-12-29] VITALS: Ht 177.8 cm; Wt 87.5 kg
--- OUTSIDE RECORDS SUMMARY | 2019-12-29 10:54 | XMS REPORT ---
Author Author [facility] t Organization [facility] Address [address] [place] [address] Phone Unavailable Care Team Providers Care Care Process Manager Name Role Phone ADIN FAUSTIN PCP Prieto FAUSTIN MD Attphys Unavailable Alissa SALVADOR Attphys Unavailable CINDY ALVAREZ Attphys Unavailable Alissa SALVADOR Admphys Unavailable CINDY ALVAREZ Admphys Unavailable Payers Payer Name Policy Type Policy Number Effective Date Expiration Date Sarita Hoffmanp Medicare Complete NA 2019 00:00:00 [id number] 2018 00:00:00 [facility] Problems Condition Name Condition Details Condition Category Status Onset Date Resolution Date Last Treatment Date Treating Clinician Comments Source Epistaxis Problem Active [facility] Allergies, Adverse Reactions, Alerts Allergy Name Allergy Type Status Severity Reaction(s) Onset Date Inacti ve Date Treating Clinician Comments Source No Known Allergies DA Active U 2019-10-07 00:00:00 [facility] No Known Allergies DA Active U 2019-09-09 00:00:00 [facility] Social History Social Habit Start Date Stop Date Quantity Comments Source Sex Assigned At 1965 00:00:00 1965 00:00:00 Male [facility] Medications Ordered Medication Name Filled Medication Name Start Date Stop Da te Current Medication? Ordering Clinician Indication Dosage Frequency Signature (SIG) Comments Components Source Carvedilol Carvedilol Yes 25 Twice A Day [facility] Lisinopril Lisinopril Yes 20 Daily [facility] Metformin Hcl Metformin Hcl Yes 500 Daily [facility] Tamsulosin Hcl (Flomax*) 0.4 Mg CAP Tamsulosin Hcl (Flomax*) 0.4 Mg C AP Yes .4 Daily [facility] Vital Signs Vital Name Observation Time Observation Value Comments Source Weight 2019-12-26 08:25:00 193 [lb_av] [facility] BMI (Body Mass Index) 2019-12-26 08:25:00 27.7 kg/m2 [facility] Weight 2019-12-25 09:38:00 193 [lb_av] [facility] BMI (Body Mass Index) 2019-12-25 09:38:00 27.7 kg/m2 [facility] Weight 2019-12-23 10:48:00 193 [lb_av] [facility] BMI (Body Mass Index) 2019-12-23 10:48:00 27.7 kg/m2 [facility] Body Temperature 2019-10-23 12:00:00 97.6 [degF] [facility] Procedures Procedure Date / Time Performed Performing Clinician Vivien e US abdomen complete 2019-12-26 00:00:00 [facility] US Abdomen limited 2019-10-22 00:00:00 YAJAIRA GRAMAJO [facility] TRANSFUSE NONAUT RED BLOOD CELLS IN PERIPH VEIN, PERC 2019-10-18 00:00:00 [facility] PERFORMANCE OF URINARY FILTRATION, <6 HRS/DAY 2019-10-18 00:00:0 0 [facility] CONTROL BLEEDING IN NASAL MUCOSA AND SOFT TISSUE, ENDO 2019-09-30 0 00:00:00 [facility] Computed tomography of chest without contrast 2019-07-12 00:00:0 0 CINDY ALVAREZ [facility] PERFORMANCE OF URINARY FILTRATION, <6 HRS/DAY 2019-07-12 00:00:[address] [facility] [address] of abdomen and pelvis without contrast 2019-07-12 00:00:00 [facility] Plan of Care Planned Activity Planned Date Details Comments Source Instructions Epistaxis - Adult [facility] Encounters Start Date/Time End Date/Time Encounter Type Admission Type Attendi [facility] Care Department Encounter ID Source 2019-12-26 08:15:00 2019-12-26 10:08:00 Departed Emergency Room [facility] [id number] [facility] 2019-12-26 07:33:00 2019-12-26 07:33:00 Registered Clinic 3 OMKAR WILSON ADIN [facility] [id number] [facility]. Denise kes [facility] 2019-12-25 09:16:00 2019-12-25 09:50:00 Departed Emergency Room [facility] [id number] [facility] - Patients [facility] 2019-12-23 10:09:00 2019-12-23 11:07:00 Departed Emergency Room [facility] [id number] [facility] 2019-10-18 22:29:00 2019-10-23 15:50:00 Discharged Inpatient 1 PAWEL SALVADOR [facility] [id number] [facility]. Denise kes - Patients [facility] 2019-09-24 15:47:00 2019-09-24 15:47:00 Outpatient [id number] 2019-08-07 07:54:00 2019-08-07 07:54:00 Registered Clinic [facility] [id number] [facility] 2019-07-12 08:43:00 2019-07-17 17:30:00 [facility]charged [facility] 1 [facility] [id number] [facility] 2019-06-17 13:10:00 2019-06-17 16:32:00 [facility] [id number] [facility] Results Test Description Test Time Test Comments Results Result Comments Source US ABDOMEN COMPLETE 2019-12-26 09:40:00 [facility] [address] [address] Patient Name: VIOLETTE LAMB MR #: [id number] : 1965 Age/Sex: 54/M Req #: [id number] Adm Physician: Ordered by: OMKAR WILSON, ADIN Moreau MD Report #: [id number] Location: US Room/Bed: Procedure: [id number] US/US ABDOMEN COMPLETE Exam Date: 12/26/19 Exam Time: 0801 REPORT STATUS: Signed EXAM: US ABDOMEN COMPLETE DATE: 12/26/2019 8:01 AM INDICATION: Liver cirrhosis COMPARISON: Chest CT 07/12/2019 TECHNIQUE: Transverse and longitudinal goldberg scale and color doppler sonographic images of the upper abdomen were obtained. FINDINGS: LIVER 18.1 cm in the right midclavicular line. Normal echogenicity of the liver with normal contour, no masses. SPLEEN 15.0 cm in maximum diameter. Normal echogenicity, no masses. GALLBLADDER 3 mm gallbladder polyp. No gallbladder wall thickening, distension, stone, or pericholecystic fluid. Negative reported sonographic Fnoseca's sign. The gallbladder wall measures 4mm BILE DUCTS No intra nor extra-hepatic biliary dilation. Common bile duct measures 4mm PANCREAS: Visualized portions are normal. RIGHT KIDNEY: 13.3 cm Echogenicity: Normal Collecting System: No hydronephrosis Stones: None Cyst/Mass: None LEFT KIDNEY: 12.9 cm Echogenicity: Normal Collecting System: No hydronephrosis Stones: None Cyst/Mass: None VESSELS: Aorta: Visualized portions are within normal size limits Inferior Vena Cava: Visualized portions are normal Main Portal Vein: 1.2 cm, normal size with hepatopetal flow. FREE FLUID: Trace ascites. IMPRESSION: Hepatomegaly and splenomegaly. No definite cirrhotic liver morphology. 3 mm gallbladder polyp. Signed by: Lisseth Jones MD on 12/26/2019 9:42 AM Dictated By: LSISETH JONES MD 1 Transcribed By: DARRON on 12/26/19941 COPY TO: ADIN FAUSTIN leukocytes automated count (number/volume) 2019-12-26 08:45:00 Test Item White Blood Count (test code = 6690-2) 6.56 4.8-10.8 [facility] erythrocytes automated count (number/volume)2019-12-26 08:45:00* Test Item Value Reference Range Interpretation Comments Red Blood Count (test code = 789-8) 2.51 4.3-5.7 [facility]Blood hemoglobin measurement (moles/volume)2019-12-26 08:45:00* Test Item Value Reference Range Interpretation Comments Hemoglobin (test code = 97898-7) 8.2 14.0-18.0 [facility] HospitalAutomated blood hematocrit (volume fraction)2019-12-26 08:45:00* Test Item Value Reference Range Interpretation Comments Hematocrit (test code = 4544-3) 24.8 38.2-49.6 [facility] HospitalAutomated erythrocyte mean corpuscular iwopkq5370-21-49 08:45:00* Test Item Value Reference Range Interpretation Comments Mean Corpuscular Volume (test code = 787-2) 98.8 81-99 [facility] HospitalAutomated erythrocyte mean corpuscular hemoglobin (mass per erythrocyte)2019-12-26 08:45:00* Test Item Value Reference Range Interpretation Comments Mean Corpuscular Hemoglobin (test code = 785-6) 32.7 28-32 [facility] HospitalAutomated erythrocyte mean corpuscular hemoglobin concentration measurement (mass/volume)2019-12-26 08:45:00* Test Item Value Reference Range Interpretation Comments Mean Corpuscular Hemoglobin Concent (test code = 786-4) 33.1 31-35 [facility] HospitalRDW RekFj-Fqu6500-88-28 08:45:00* Test Item Value Reference Range Interpretation Comments Red Cell Distribution Width (test code = 76358-4) 13.9 11.7 -14.4 [facility] HospitalAutomated blood platelet count (count/volume)2019-12-26 08:45:00* Test Item Value Reference Range Interpretation Comments Platelet Count (test code = 777-3) 136 140-360 [facility] HospitalAutomated blood segmented neutrophil count as percentage of total msfwaggrsy4397-90-40 08:45:00* Test Item Value Reference Range Interpretation Comments Neutrophils (%) (Auto) (test code = 66450-7) 78.9 38.7-80.0 [facility] HospitalAutomated blood lymphocyte count as percentage ot total sggsrremmc8127-41-01 08:45:00* Test Item Value Reference Range Interpretation Comments Lymphocytes (%) (Auto) (test code = 736-9) 8.2 18.0-39.1 [facility] HospitalAutomated blood monocyte count as percentage of total pchflgihii3950-35-70 08:45:00* Test Item Value Reference Range Interpretation Comments Monocytes (%) (Auto) (test code = 5905-5) 9.8 4.4-11.3 [facility] HospitalAutomated blood eosinophil count as percentage of total zohisihwru5508-93-30 08:45:00* Test Item Value Reference Range Interpretation Comments Eosinophils (%) (Auto) (test code = 713-8) 2.3 0.0-6.0 [facility] HospitalAutomated blood basophil count as percentage of total buchjbrluf5059-00-54 08:45:00* Test Item Value Reference Range Interpretation Comments Basophils (%) (Auto) (test code = 706-2) 0.5 0.0-1.0 [facility] HospitalFluoroscopic procedure less than one hour aahvwsbm4456-27-32 08:45:00* Test Item Value Reference Range Interpretation Comments IM GRANULOCYTES % (test code = IM GRANULOCYTES %) 0.3 0.0- 1.0 [facility] HospitalAutomated blood neutrophil count 2019-12-26 08:45:00* Test Item Value Reference Range Interpretation Comments Neutrophils # (Auto) (test code = 751-8) 5.2 2.1-6.9 [facility] HospitalBlood lymphocytes count (number/volume) 2019-12-26 08:45:00* Test Item Value Reference Range Interpretation Comments Lymphocytes # (Auto) (test code = 93138-1) 0.5 1.0-3.2 [facility] HospitalBlood monocytes automated count (number/volume)2019-12-26 08:45:00* Test Item Value Reference Range Interpretation Comments Monocytes # (Auto) (test code = 742-7) 0.6 0.2-0.8 [facility] HospitalAutomated blood eosinophil count 2019-12-26 08:45:00* Test Item Value Reference Range Interpretation Comments Eosinophils # (Auto) (test code = 711-2) 0.2 0.0-0.4 [facility] HospitalAutomated blood basophil count (count/volume)2019-12-26 08:45:00* Test Item Value Reference Range Interpretation Comments Basophils # (Auto) (test code = 704-7) 0.0 0.0-0.1 [facility] HospitalFluoroscopic procedure less than one hour prhilugp4532-16-74 08:45:00* Test Item Value Reference Range Interpretation Comments Absolute Immature Granulocyte (auto (rupinder t code = Absolute Immature Granulocyte (auto) 0.02 0-0.1 [facility] HospitalProthrombin time (PT) in platelet poor plasma by coagulation ihbhp9789-37-41 08:45:00* Test Item Value Reference Range Interpretation Comments Prothrombin Time (test code = 5902-2) 14.1 11.9-14.5 [facility] HospitalINR in Platelet poor plasma by Coagulation jzpnw3516-33-83 08:45:00* Test Item Value Reference Range Interpretation Comments Prothromb Time International Ratio (test code = 6301-6) 1.03 Oral Anticoagulant Therapy INR Values:1. Low Intensity Therapy 1.5 - 2.02 . Moderate Intensity Therapy 2.0 - 3.03. High Intensity Therapy(1) 2.5 - 3. 54. High Intensity Therapy(2) 3.0 - 4.05. Panic Value INR > 5.0 [facility] HospitalActivated partial thromboplastin time (aPTT) in platelet poor plasma by coagulation hmkyt9254-51-38 08:45:00* Test Item Value Reference Range Interpretation Comments Activated Partial Thromboplast Time (test code = 72087-2) 31.2 23.8-35.5 [facility] HospitalBlood Fvxtoby7141-25-99 11:35:00* Test Item Value Reference Range Interpretation Comments Blood Culture (test code = 23749514) NO GROWTH AFTER 5 DAYS, FINAL REPORT [facility] HospitalBedside Irkohkh8233-50-43 11:41:00* Test Item Value Reference Range Interpretation Comments Bedside Glucose (test code = 24938-6) 131 70-120 H Meter ID: [id number] E. DeBakey Department of Veterans Affairs Medical CenterPlatelet Morphology Dxslfwr9406-76-88 11:02:00* Test Item Value Reference Range Interpretation Comments Platelet Morphology Comment (test code = 88440-7) NO EDTA PLT CLUMP S SEEN [facility] HospitalCapillary blood glucose measurement by glucometer (mass/volume)2019-10-23 10:59:00* Test Item Value Reference Range Interpretation Comments Bedside Glucose (test code = 53528-3) 131 70-120 Meter ID: [id number] E. DeBakey Department of Veterans Affairs Medical CenterCapillary blood glucose measurement by glucometer (mass/volume)2019-10-23 10:59:00* Test Item Value Reference Range Interpretation Comments Bedside Glucose (test code = 64027-9) 131 70-120 Meter ID: [id number] E. DeBakey [facility] of [facility] Affairs Medical CenterCapillary blood glucose measurement by glucometer (mass/volume)2019-10-23 10:59:00* Test Item Value Reference Range Interpretation Comments Bedside Glucose (test code = 08184-5) 131 70-120 Meter ID: [id number] [facility] Planoodium Level 2019-10-23 06:43:00* Test Item Value Reference Range Interpretation Comments Sodium Level (test code = 2951-2) 133 136-145 L [facility] HospitalPotassium Auvcf6924-21-75 06:43:00* Test Item Value Reference Range Interpretation Comments Potassium Level (test code = 2823-3) 3.9 3.5-5.1 [facility] HospitalChloride Opmef1942-41-03 06:43:00* Test Item Value Reference Range Interpretation Comments Chloride Level (test code = 2075-0) 100 98-107 [facility] HospitalCarbon Dioxide Ahqbd4725-38-38 06:43:00* Test Item Value Reference Range Interpretation Comments Carbon Dioxide Level (test code = 2028-9) 24 22-29 [facility] HospitalAnion Rxk3646-53-79 06:43:00* Test Item Value Reference Range Interpretation Comments Anion Gap (test code = 34093-8) 12.9 8-16 [facility] HospitalBlood Urea Bopfmlav8963-95-92 06:43:00* Test Item Value Reference Range Interpretation Comments Blood Urea Nitrogen (test code = 3094-0) 54 7-26 H [facility] HospitalCreatinine2020-03-25 06:43:00* Test Item Value Reference Range Interpretation Comments Creatinine (test code = 2160-0) 4.25 0.72-1.25 H [facility] HospitalBUN/Creatinine Yufvh9251-70-26 06:43:00* Test Item Value Reference Range Interpretation Comments BUN/Creatinine Ratio (test code = 3097-3) 13 6-25 [facility] HospitalEstimat Glomerular Filtration Rate 2019-10-23 06:43:00* Test Item Value Reference Range Interpretation Comments Estimat Glomerular Filtration Rate (test code = 433911648) 15 >60 L Ranges were taken from the National Kidney Disease Education Program and the [place] [employer] literature.Reference ranges:60 or greater: Pynfyg06-52 ( for 3 consecutive months): Chronic kidney disease 15 or less: Kidney failureResolute Health HospitalGlucose Jrkar5795-54-23 06:43:00* Test Item Value Reference Range Interpretation Comments Glucose Level (test code = OYT0939) 158 74-118 H [facility] HospitalCalcium Thpqn6730-29-52 06:43:00* Test Item Value Reference Range Interpretation Comments Calcium Level (test code = 06529-0) 7.8 8.4-10.2 L [facility] HospitalTotal Wjgjwigwt8774-71-46 06:43:00* Test Item Value Reference Range Interpretation Comments Total Bilirubin (test code = 1975-2) 5.3 0.2-1.2 H [facility] HospitalAspartate Amino Transf (AST/SGOT) 2019-10-23 06:43:00* Test Item Value Reference Range Interpretation Comments Aspartate Amino Transf (AST/SGOT) (test code = Aspartate Amino Transf (AST/SGOT)) 31 5-34 [facility] HospitalAlanine Aminotransferase (ALT/SGPT) 2019-10-23 06:43:00* Test Item Value Reference Range Interpretation Comments Alanine Aminotransferase (ALT/SGPT) (test code = 1742-6) 36 0-55 [facility] HospitalTotal Yasawyz8666-04-19 06:43:00* Test Item Value Reference Range Interpretation Comments Total Protein (test code = 2885-2) 5.8 6.5-8.1 L [facility] HospitalAlbumin2020-03-25 06:43:00* Test Item Value Reference Range Interpretation Comments Albumin (test code = 1751-7) 2.2 3.5-5.0 L [facility] HospitalGlobulin2020-03-25 06:43:00* Test Item Value Reference Range Interpretation Comments Globulin (test code = 79104-3) 3.6 2.3-3.5 H [facility] HospitalAlbumin/Globulin Ovtkc9933-20-49 06:43:00 * Test Item Value Reference Range Interpretation Comments Albumin/Globulin Ratio (test code = 1759-0) 0.6 0.8-2.0 L [facility] HospitalAlkaline Kbmgzxkbvdx7864-86-64 06:43:00* Test Item Value Reference Range Interpretation Comments Alkaline Phosphatase (test code = 6768-6) 630 40-150 H [facility] HospitalWhite Blood Lzfak4412-23-17 06:07:00* Test Item Value Reference Range Interpretation Comments White Blood Count (test code = 6690-2) 4.19 4.8-10.8 L [facility] HospitalRed Blood Vlrxk8097-22-78 06:07:00* Test Item Value Reference Range Interpretation Comments Red Blood Count (test code = 789-8) 2.55 4.3-5.7 L [facility] HospitalHemoglobin2020-03-25 06:07:00* Test Item Value Reference Range Interpretation Comments Hemoglobin (test code = 07477-0) 8.3 14.0-18.0 L [facility] HospitalHematocrit2020-03-25 06:07:00* Test Item Value Reference Range Interpretation Comments Hematocrit (test code = 4544-3) 25.0 38.2-49.6 L [facility] HospitalMean Corpuscular Ahvdhk8991-55-62 06:07:00* Test Item Value Reference Range Interpretation Comments Mean Corpuscular Volume (test code = 787-2) 98.0 81-99 [facility] HospitalMean Corpuscular Tovitcezck0172-16-76 06:07:00* Test Item Value Reference Range Interpretation Comments Mean Corpuscular Hemoglobin (test code = 785-6) 32.5 28-32 H [facility] HospitalMean Corpuscular Hemoglobin Concent 2019-10-23 06:07:00* Test Item Value Reference Range Interpretation Comments Mean Corpuscular Hemoglobin Concent (test code = 786-4) 33.2 31-35 [facility] HospitalRed Cell Distribution Apcig0017-21-29 06:07:00* Test Item Value Reference Range Interpretation Comments Red Cell Distribution Width (test code = 39051-2) 17.8 11.7 -14.4 H [facility] HospitalPlatelet Veszb5902-07-02 06:07:00* Test Item Value Reference Range Interpretation Comments Platelet Count (test code = 777-3) 86 140-360 L [facility] HospitalNeutrophils (%) (Auto)2019-10-23 06:07:00 * Test Item Value Reference Range Interpretation Comments Neutrophils (%) (Auto) (test code = 55367-2) 76.2 38.7-80.0 [facility] HospitalLymphocytes (%) (Auto)2019-10-23 06:07:00 * Test Item Value Reference Range Interpretation Comments Lymphocytes (%) (Auto) (test code = 736-9) 12.6 18.0-39.1 L [facility] HospitalMonocytes (%) (Auto)2019-10-23 06:07:00* Test Item Value Reference Range Interpretation Comments Monocytes (%) (Auto) (test code = 5905-5) 8.6 4.4-11.3 [facility] HospitalEosinophils (%) (Auto)2019-10-23 06:07:00 * Test Item Value Reference Range Interpretation Comments Eosinophils (%) (Auto) (test code = 713-8) 2.1 0.0-6.0 [facility] HospitalBasophils (%) (Auto)2019-10-23 06:07:00* Test Item Value Reference Range Interpretation Comments Basophils (%) (Auto) (test code = 706-2) 0.0 0.0-1.0 [facility] HospitalIM GRANULOCYTES %2019-10-23 06:07:00* Test Item Value Reference Range Interpretation Comments IM GRANULOCYTES % (test code = IM GRANULOCYTES %) 0.5 0.0- 1.0 [facility] HospitalNeutrophils # (Auto)2019-10-23 06:07:00* Test Item Value Reference Range Interpretation Comments Neutrophils # (Auto) (test code = 751-8) 3.2 2.1-6.9 [facility] HospitalLymphocytes # (Auto)2019-10-23 06:07:00* Test Item Value Reference Range Interpretation Comments Lymphocytes # (Auto) (test code = 95258-3) 0.5 1.0-3.2 L [facility] HospitalMonocytes # (Auto)2019-10-23 06:07:00* Test Item Value Reference Range Interpretation Comments Monocytes # (Auto) (test code = 742-7) 0.4 0.2-0.8 [facility] HospitalEosinophils # (Auto)2019-10-23 06:07:00* Test Item Value Reference Range Interpretation Comments Eosinophils # (Auto) (test code = 711-2) 0.1 0.0-0.4 [facility] HospitalBasophils # (Auto)2019-10-23 06:07:00* Test Item Value Reference Range Interpretation Comments Basophils # (Auto) (test code = 704-7) 0.0 0.0-0.1 [facility] HospitalAbsolute Immature Granulocyte (auto 2019-10-23 06:07:00* Test Item Value Reference Range Interpretation Comments Absolute Immature Granulocyte (auto (rupinder t code = Absolute Immature Granulocyte (auto) 0.02 0-0.1 [facility] HospitalBlood leukocytes automated count (number/volume)2019-10-23 05:20:00* Test Item Value Reference Range Interpretation Comments White Blood Count (test code = 6690-2) 4.19 4.8-10.8 [facility] HospitalBlwin[facility] erythrocytes automated count (number/volume)2019-10-23 05:20:00* Test Item Value Reference Range Interpretation Comments Red Blood Count (test code = 789-8) 2.55 4.3-5.7 [facility] HospitalBlood hemoglobin measurement (moles/volume)2019-10-23 05:20:00* Test Item Value Reference Range Interpretation Comments Hemoglobin (test code = 51679-7) 8.3 14.0-18.0 [facility] HospitalAutomated blood hematocrit (volume fraction)2019-10-23 05:20:00* Test Item Value Reference Range Interpretation Comments Hematocrit (test code = 4544-3) 25.0 38.2-49.6 [facility] HospitalAutomated erythrocyte mean corpuscular uvfmmh9475-45-53 05:20:00* Test Item Value Reference Range Interpretation Comments Mean Corpuscular Volume (test code = 787-2) 98.0 81-99 [facility] HospitalAutomated erythrocyte mean corpuscular hemoglobin (mass per erythrocyte)2019-10-23 05:20:00* Test Item Value Reference Range Interpretation Comments Mean Corpuscular Hemoglobin (test code = 785-6) 32.5 28-32 [facility] HospitalAutomated erythrocyte mean corpuscular hemoglobin concentration measurement (mass/volume)2019-10-23 05:20:00* Test Item Value Reference Range Interpretation Comments Mean Corpuscular Hemoglobin Concent (test code = 786-4) 33.2 31-35 [facility] HospitalRDW VkrVb-Qci2139-97-25 05:20:00* Test Item Value Reference Range Interpretation Comments Red Cell Distribution Width (test code = 21632-8) 17.8 11.7 -14.4 [facility] HospitalAutomated blood platelet count (count/volume)2019-10-23 05:20:00* Test Item Value Reference Range Interpretation Comments Platelet Count (test code = 777-3) 86 140-360 [facility] HospitalAutomated blood segmented neutrophil count as percentage of total gucoqfehgp6832-91-29 05:20:00* Test Item Value Reference Range Interpretation Comments Neutrophils (%) (Auto) (test code = 87159-2) 76.2 38.7-80.0 [facility] HospitalAutomated blood lymphocyte count as percentage ot total qcfnuadjex8028-30-33 05:20:00* Test Item Value Reference Range Interpretation Comments Lymphocytes (%) (Auto) (test code = 736-9) 12.6 18.0-39.1 [facility] HospitalAutomated blood monocyte count as percentage of total dgxjorertx5252-14-06 05:20:00* Test Item Value Reference Range Interpretation Comments Monocytes (%) (Auto) (test code = 5905-5) 8.6 4.4-11.3 [facility] HospitalAutomated blood eosinophil count as percentage of total ozrmufzxyb5813-00-23 05:20:00* Test Item Value Reference Range Interpretation Comments Eosinophils (%) (Auto) (test code = 713-8) 2.1 0.0-6.0 [facility] HospitalAutomated blood basophil count as percentage of total kdkhblqvuv7830-54-15 05:20:00* Test Item Value Reference Range Interpretation Comments Basophils (%) (Auto) (test code = 706-2) 0.0 0.0-1.0 [facility] HospitalFluoroscopic procedure less than one hour lvjlcjbj6887-04-84 05:20:00* Test Item Value Reference Range Interpretation Comments IM GRANULOCYTES % (test code = IM GRANULOCYTES %) 0.5 0.0- 1.0 [facility] HospitalAutomated blood neutrophil count 2019-10-23 05:20:00* Test Item Value Reference Range Interpretation Comments Neutrophils # (Auto) (test code = 751-8) 3.2 2.1-6.9 [facility] HospitalBlood lymphocytes count (number/volume) 2019-10-23 05:20:00* Test Item Value Reference Range Interpretation Comments Lymphocytes # (Auto) (test code = 29800-6) 0.5 1.0-3.2 [facility] monocytes automated count (number/volume)2019-10-23 05:20:00* Test Item Value Reference Range Interpretation Comments Monocytes # (Auto) (test code = 742-7) 0.4 0.2-0.8 [facility] HospitalAutomated blood eosinophil count 2019-10-23 05:20:00* Test Item Value Reference Range Interpretation Comments Eosinophils # (Auto) (test code = 711-2) 0.1 0.0-0.4 [facility] HospitalAutomated blood basophil count (count/volume)2019-10-23 05:20:00* Test Item Value Reference Range Interpretation Comments Basophils # (Auto) (test code = 704-7) 0.0 0.0-0.1 [facility] HospitalFluoroscopic procedure less than one hour qxplowbv4548-03-41 05:20:00* Test Item Value Reference Range Interpretation Comments Absolute Immature Granulocyte (auto (rupinder t code = Absolute Immature Granulocyte (auto) 0.02 0-0.1 [facility] HospitalPlatelet ckecaupfam0449-56-12 05:20:00* Test Item Value Reference Range Interpretation Comments Platelet Morphology Comment (test code = 48108-3) See Comment NO EDTA PLT CLUMPS SEENFormerly [facility] Hospitalerum or plasma sodium measurement (moles/volume)2019-10-23 05:20:00* Test Item Value Reference Range Interpretation Comments Sodium Level (test code = 2951-2) 133 136-145 [facility] Hospitalerum or plasma potassium measurement (moles/volume)2019-10-23 05:20:00* Test Item Value Reference Range Interpretation Comments Potassium Level (test code = 2823-3) 3.9 3.5-5.1 [facility] Hospitalerum or plasma chloride measurement (moles/volume)2019-10-23 05:20:00* Test Item Value Reference Range Interpretation Comments Chloride Level (test code = 2075-0) 100 98-107 [facility] Hospitalerum or plasma carbon dioxide, total measurement (moles/volume)2019-10-23 05:20:00* Test Item Value Reference Range Interpretation Comments Carbon Dioxide Level (test code = 2028-9) 24 22-29 [facility] Hospitalerum or plasma anion qqk5448-54-98 05:20:00* Test Item Value Reference Range Interpretation Comments Anion Gap (test code = 00096-4) 12.9 8-16 [facility] Hospitalerum or plasma urea nitrogen measurement (mass/volume)2019-10-23 05:20:00* Test Item Value Reference Range Interpretation Comments Blood Urea Nitrogen (test code = 3094-0) 54 7-26 [facility] Hospitalerum or plasma creatinine measurement (mass/volume)2019-10-23 05:20:00* Test Item Value Reference Range Interpretation Comments Creatinine (test code = 2160-0) 4.25 0.72-1.25 [facility] Hospitalerum or plasma urea nitrogen/creatinine mass mpyxs9126-50-52 05:20:00* Test Item Value Reference Range Interpretation Comments BUN/Creatinine Ratio (test code = 3097-3) 13 6-25 [facility] HospitalEstimated glomerular filtration rate (GFR) foiqkbnmqhskk9241-31-32 05:20:00* Test Item Value Reference Range Interpretation Comments Estimat Glomerular Filtration Rate (test code = 479259549) 15 >60 Ranges were taken from the National Kidney Disease Education Program and the [facility] Kid[facility] Foundation literature.Reference ranges:60 or greater: Aycjpq53-67 ( for 3 consecutive months): Chronic kidney disease 15 or less: Kidney failureResolute Health HospitalGlucose qbiyasacydx8630-06-41 05:20:00* Test Item Value Reference Range Interpretation Comments Glucose Level (test code = ARL0568) 158 74-118 [facility]er[facility] or plasma calcium measurement (mass/volume)2019-10-23 05:20:00* Test Item Value Reference Range Interpretation Comments Calcium Level (test code = 80829-7) 7.8 8.4-10.2 [facility]erum or plasma total bilirubin measurement (mass/volume)2019-10-23 05:20:00* Test Item Value Reference Range Interpretation Comments Total Bilirubin (test code = 1975-2) 5.3 0.2-1.2 [facility] HospitalFluoroscopic procedure less than one hour vibnnrzw5597-72-11 05:20:00* Test Item Value Reference Range Interpretation Comments Aspartate Amino Transf (AST/SGOT) (test code = Aspartate Amino Transf (AST/SGOT)) 31 5-34 [facility] Hospitalerum or plasma alanine aminotransferase measurement (enzymatic activity/volume)2019-10-23 05:20:00* Test Item Value Reference Range Interpretation Comments Alanine Aminotransferase (ALT/SGPT) (test code = 1742-6) 36 0-55 [facility] Hospitalerum or plasma protein measurement (mass/volume)2019-10-23 05:20:00* Test Item Value Reference Range Interpretation Comments Total Protein (test code = 2885-2) 5.8 6.5-8.1 [facility]er[facility] or plasma albumin measurement (mass/volume)2019-10-23 05:20:00* Test Item Value Reference Range Interpretation Comments Albumin (test code = 1751-7) 2.2 3.5-5.0 [facility] HospitalPlasma globulin measurement (mass/volume) 2019-10-23 05:20:00* Test Item Value Reference Range Interpretation Comments Globulin (test code = 02257-1) 3.6 2.3-3.5 [facility] Hospitalerum or plasma albumin/globulin mass xdsbh2810-49-34 05:20:00* Test Item Value Reference Range Interpretation Comments Albumin/Globulin Ratio (test code = 1759-0) 0.6 0.8-2.0 [facility] Hospitalerum or plasma alkaline phosphatase measurement (enzymatic activity/volume)2019-10-23 05:20:00* Test Item Value Reference Range Interpretation Comments Alkaline Phosphatase (test code = 6768-6) 630 40-150 [facility] HospitalBlood leukocytes automated count (number/volume)2019-10-23 05:20:00* Test Item Value Reference Range Interpretation Comments White Blood Count (test code = 6690-2) 4.19 4.8-10.8 [facility] HospitalBlood erythrocytes automated count (number/volume)2019-10-23 05:20:00* Test Item Value Reference Range Interpretation Comments Red Blood Count (test code = 789-8) 2.55 4.3-5.7 [facility] HospitalBlood hemoglobin measurement (moles/volume)2019-10-23 05:20:00* Test Item Value Reference Range Interpretation Comments Hemoglobin (test code = 98003-2) 8.3 14.0-18.0 [facility] HospitalAutomated blood hematocrit (volume fraction)2019-10-23 05:20:00* Test Item Value Reference Range Interpretation Comments Hematocrit (test code = 4544-3) 25.0 38.2-49.6 [facility] HospitalAutomated erythrocyte mean corpuscular gqvwdd5211-59-32 05:20:00* Test Item Value Reference Range Interpretation Comments Mean Corpuscular Volume (test code = 787-2) 98.0 81-99 [facility] HospitalAutomated erythrocyte mean corpuscular hemoglobin (mass per erythrocyte)2019-10-23 05:20:00* Test Item Value Reference Range Interpretation Comments Mean Corpuscular Hemoglobin (test code = 785-6) 32.5 28-32 [facility] HospitalAutec[facility] erythrocyte mean corpuscular hemoglobin concentration measurement (mass/volume)2019-10-23 05:20:00* Test Item Value Reference Range Interpretation Comments Mean Corpuscular Hemoglobin Concent (test code = 786-4) 33.2 31-35 [facility] HospitalRDW EbfAv-Bju8958-54-25 05:20:00* Test Item Value Reference Range Interpretation Comments Red Cell Distribution Width (test code = 88852-2) 17.8 11.7 -14.4 [facility] blood platelet count (count/volume)2019-10-23 05:20:00* Test Item Value Reference Range Interpretation Comments Platelet Count (test code = 777-3) 86 140-360 [facility] count as percentage of total mgnltzcyzm9450-23-82 05:20:00* Test Item Value Reference Range Interpretation Comments Neutrophils (%) (Auto) (test code = 61217-8) 76.2 38.7-80.0 [facility] blood lymphocyte count as percentage ot total mjgjvydtdo9554-78-16 05:20:00* Test Item Value Reference Range Interpretation Comments Lymphocytes (%) (Auto) (test code = 736-9) 12.6 18.0-39.1 [facility] HospitalAut[facility] blood monocyte count as percentage of total iajjqravfr8327-01-90 05:20:00* Test Item Value Reference Range Interpretation Comments Monocytes (%) (Auto) (test code = 5905-5) 8.6 4.4-11.3 [facility] blood eosinophil count as percentage of total xvdsnjczgp1285-40-30 05:20:00* Test Item Value Reference Range Interpretation Comments Eosinophils (%) (Auto) (test code = 713-8) 2.1 0.0-6.[address] [facility] basophil count as percentage of total zpojtcirpk3245-52-39 05:20:00* Test Item Value Reference Range Interpretation Comments Basophils (%) (Auto) (test code = 706-2) 0.0 0.0-1.0 [facility] HospitalFluoroscopic procedure less than one hour vldzmkoa0210-39-25 05:20:00* Test Item Value Reference Range Interpretation Comments IM GRANULOCYTES % (test code = IM GRANULOCYTES %) 0.5 0.0- 1.0 [facility] HospitalAutomated blood neutrophil count 2019-10-23 05:20:00* Test Item Value Reference Range Interpretation Comments Neutrophils # (Auto) (test code = 751-8) 3.2 2.1-6.9 [facility] count (number/volume) 2019-10-23 05:20:00* Test Item Value Reference Range Interpretation Comments Lymphocytes # (Auto) (test code = 21513-7) 0.5 1.0-3.2 [facility] monocytes automated count (number/volume)2019-10-23 05:20:00* Test Item Value Reference Range Interpretation Comments Monocytes # (Auto) (test code = 742-7) 0.4 0.2-0.8 [facility] HospitalAutomated blood eosinophil count 2019-10-23 05:20:00* Test Item Value Reference Range Interpretation Comments Eosinophils # (Auto) (test code = 711-2) 0.1 0.0-0.4 [facility] HospitalAutomated blood basophil count (count/volume)2019-10-23 05:20:00* Test Item Value Reference Range Interpretation Comments Basophils # (Auto) (test code = 704-7) 0.0 0.0-0.1 [facility] HospitalFluoroscopic procedure less than one hour dkdzgyax8139-09-99 05:20:00* Test Item Value Reference Range Interpretation Comments Absolute Immature Granulocyte (auto (rupinder t code = Absolute Immature Granulocyte (auto) 0.02 0-0.1 [facility] HospitalPlatelet dbtqjhiazz6038-66-77 05:20:00* Test Item Value Reference Range Interpretation Comments Platelet Morphology Comment (test code = 68937-7) See Comment NO EDTA PLT CLUMPS SEENFormerly [facility] Hospitalerum or plasma sodium measurement (moles/volume)2019-10-23 05:20:00* Test Item Value Reference Range Interpretation Comments Sodium Level (test code = 2951-2) 133 136-145 [facility] Hospitalerum or plasma potassium measurement (moles/volume)2019-10-23 05:20:00* Test Item Value Reference Range Interpretation Comments Potassium Level (test code = 2823-3) 3.9 3.5-5.1 [facility] Hospitalerum or plasma chloride measurement (moles/volume)2019-10-23 05:20:00* Test Item Value Reference Range Interpretation Comments Chloride Level (test code = 2075-0) 100 98-107 [facility] Hospitalerum or plasma carbon dioxide, total measurement (moles/volume)2019-10-23 05:20:00* Test Item Value Reference Range Interpretation Comments Carbon Dioxide Level (test code = 2028-9) 24 22-29 [facility] Hospitalerum or plasma anion fup1190-48-41 05:20:00* Test Item Value Reference Range Interpretation Comments Anion Gap (test code = 22715-9) 12.9 8-16 [facility] Hospitalerum or plasma urea nitrogen measurement (mass/volume)2019-10-23 05:20:00* Test Item Value Reference Range Interpretation Comments Blood Urea Nitrogen (test code = 3094-0) 54 7-26 [facility] Hospitalerum or plasma creatinine measurement (mass/volume)2019-10-23 05:20:00* Test Item Value Reference Range Interpretation Comments Creatinine (test code = 2160-0) 4.25 0.72-1.25 [facility] Hospitalerum or plasma urea nitrogen/creatinine mass frwkk6930-72-20 05:20:00* Test Item Value Reference Range Interpretation Comments BUN/Creatinine Ratio (test code = 3097-3) 13 6-25 [facility] HospitalEstimated glomerular filtration rate (GFR) wgpdiaprrdpif3097-19-74 05:20:00* Test Item Value Reference Range Interpretation Comments Estimat Glomerular Filtration Rate (test code = 547310100) 15 >60 Ranges were taken from the National Kidney Disease Education Program and the [facility] Foundation literature.Reference ranges:60 or greater: Teexxy78-57 ( for 3 consecutive months): Chronic kidney disease 15 or less: Kidney failureResolute Health HospitalGlucose egwpqtfvcyv6443-03-04 05:20:00* Test Item Value Reference Range Interpretation Comments Glucose Level (test code = RSH9975) 158 74-118 [facility]er[facility] or plasma calcium measurement (mass/volume)2019-10-23 05:20:00* Test Item Value Reference Range Interpretation Comments Calcium Level (test code = 95483-4) 7.8 8.4-10.2 [facility] Hospitalerum or plasma total bilirubin measurement (mass/volume)2019-10-23 05:20:00* Test Item Value Reference Range Interpretation Comments Total Bilirubin (test code = 1975-2) 5.3 0.2-1.2 [facility] HospitalFluoroscopic procedure less than one hour qtyoqhlj1754-42-67 05:20:00* Test Item Value Reference Range Interpretation Comments Aspartate Amino Transf (AST/SGOT) (test code = Aspartate Amino Transf (AST/SGOT)) 31 5-34 [facility] Hospitalerum or plasma alanine aminotransferase measurement (enzymatic activity/volume)2019-10-23 05:20:00* Test Item Value Reference Range Interpretation Comments Alanine Aminotransferase (ALT/SGPT) (test code = 1742-6) 36 0-55 [facility] Hospitalerum or plasma protein measurement (mass/volume)2019-10-23 05:20:00* Test Item Value Reference Range Interpretation Comments Total Protein (test code = 2885-2) 5.8 6.5-8.1 [facility]erum or plasma albumin measurement (mass/volume)2019-10-23 05:20:00* Test Item Value Reference Range Interpretation Comments Albumin (test code = 1751-7) 2.2 3.5-5.0 [facility] HospitalPlasma globulin measurement (mass/volume) 2019-10-23 05:20:00* Test Item Value Reference Range Interpretation Comments Globulin (test code = 06077-1) 3.6 2.3-3.5 [facility] Hospitalerum or plasma albumin/globulin mass satyg5957-45-67 05:20:00* Test Item Value Reference Range Interpretation Comments Albumin/Globulin Ratio (test code = 1759-0) 0.6 0.8-2.0 [facility] Hospitalerum or plasma alkaline phosphatase measurement (enzymatic activity/volume)2019-10-23 05:20:00* Test Item Value Reference Range Interpretation Comments Alkaline Phosphatase (test code = 6768-6) 630 40-150 [facility] HospitalPlatelet edebplsbdp9286-76-59 05:20:00* Test Item Value Reference Range Interpretation Comments Platelet Morphology Comment (test code = 67808-8) See Comment NO EDTA PLT CLUMPS SEENFormerly [facility] Hospitalerum or plasma sodium measurement (moles/volume)2019-10-23 05:20:00* Test Item Value Reference Range Interpretation Comments Sodium Level (test code = 2951-2) 133 136-145 [facility] Hospitalerum or plasma potassium measurement (moles/volume)2019-10-23 05:20:00* Test Item Value Reference Range Interpretation Comments Potassium Level (test code = 2823-3) 3.9 3.5-5.1 [facility] Hospitalerum or plasma chloride measurement (moles/volume)2019-10-23 05:20:00* Test Item Value Reference Range Interpretation Comments Chloride Level (test code = 2075-0) 100 98-107 [facility] Hospitalerum or plasma carbon dioxide, total measurement (moles/volume)2019-10-23 05:20:00* Test Item Value Reference Range Interpretation Comments Carbon Dioxide Level (test code = 2028-9) 24 22-29 [facility] Hospitalerum or plasma anion gwr4344-61-60 05:20:00* Test Item Value Reference Range Interpretation Comments Anion Gap (test code = 47974-5) 12.9 8-16 [facility]erum or plasma urea nitrogen measurement (mass/volume)2019-10-23 05:20:00* Test Item Value Reference Range Interpretation Comments Blood Urea Nitrogen (test code = 3094-0) 54 7-26 [facility]erum or plasma creatinine measurement (mass/volume)2019-10-23 05:20:00* Test Item Value Reference Range Interpretation Comments Creatinine (test code = 2160-0) 4.25 0.72-1.25 [facility] Hospitalerum or plasma urea nitrogen/creatinine mass cxoyw7305-49-33 05:20:00* Test Item Value Reference Range Interpretation Comments BUN/Creatinine Ratio (test code = 3097-3) 13 6-25 [facility] HospitalEstimated glomerular filtration rate (GFR) purilmfbyjvra8190-52-12 05:20:00* Test Item Value Reference Range Interpretation Comments Estimat Glomerular Filtration Rate (test code = 740014555) 15 >60 Ranges were taken from the National Kidney Disease Education Program and the [facility] literature.Reference ranges:60 or greater: Cfztxc76-50 ( for 3 consecutive months): Chronic kidney disease 15 or less: Kidney failureResolute Health HospitalGlucose bimeryauynz3733-31-99 05:20:00* Test Item Value Reference Range Interpretation Comments Glucose Level (test code = QDN6657) 158 74-118 [facility]er[facility] or plasma calcium measurement (mass/volume)2019-10-23 05:20:00* Test Item Value Reference Range Interpretation Comments Calcium Level (test code = 96747-1) 7.8 8.4-10.2 [facility]erum or plasma total bilirubin measurement (mass/volume)2019-10-23 05:20:00* Test Item Value Reference Range Interpretation Comments Total Bilirubin (test code = 1975-2) 5.3 0.2-1.2 [facility] HospitalFluoroscopic procedure less than one hour pjlwyumv5293-54-71 05:20:00* Test Item Value Reference Range Interpretation Comments Aspartate Amino Transf (AST/SGOT) (test code = Aspartate Amino Transf (AST/SGOT)) 31 5-34 [facility] Hospitalerum or plasma alanine aminotransferase measurement (enzymatic activity/volume)2019-10-23 05:20:00* Test Item Value Reference Range Interpretation Comments Alanine Aminotransferase (ALT/SGPT) (test code = 1742-6) 36 0-55 [facility]erum or plasma protein measurement (mass/volume)2019-10-23 05:20:00* Test Item Value Reference Range Interpretation Comments Total Protein (test code = 2885-2) 5.8 6.5-8.1 [facility]er[facility] or plasma albumin measurement (mass/volume)2019-10-23 05:20:00* Test Item Value Reference Range Interpretation Comments Albumin (test code = 1751-7) 2.2 3.5-5.0 [facility] HospitalPlasma globulin measurement (mass/volume) 2019-10-23 05:20:00* Test Item Value Reference Range Interpretation Comments Globulin (test code = 72511-7) 3.6 2.3-3.5 [facility]er[facility] or plasma albumin/globulin mass ovyll6772-08-92 05:20:00* Test Item Value Reference Range Interpretation Comments Albumin/Globulin Ratio (test code = 1759-0) 0.6 0.8-2.0 [facility]erum or plasma alkaline phosphatase measurement (enzymatic activity/volume)2019-10-23 05:20:00* Test Item Value Reference Range Interpretation Comments Alkaline Phosphatase (test code = 6768-6) 630 40-150 [facility] HospitalAlkaline Sqkisilmrtj9498-65-34 03:42:00* Test Item Value Reference Range Interpretation Comments Alkaline Phosphatase (test code = 6768-6) 865 39-117 H [facility] HospitalAlkaline Phosphatase Iso-Intestine 2019-10-23 03:42:00* Test Item Value Reference Range Interpretation Comments Alkaline Phosphatase Iso-Intestine (test code = 10327-5) 0 0-18 Performed at: - [facility] [address] [id number] Director: Roe Contreras MD, Phone: [phone] at: - [facility] [id number] [place] [id number] Director: Dasha Lr MD, Ph one: [phone] Health HospitalAlkaline Phosphatase Ged-Yfui2137-29-25 03:42:00* Test Item Value Reference Range Interpretation Comments Alkaline Phosphatase Iso-Bone (test code = 27025-5) 21 12 -68 [facility] HospitalAlkaline Phosphatase Ugq-Bfzrq9246-12-25 03:42:00* Test Item Value Reference Range Interpretation Comments Alkaline Phosphatase Iso-Liver (test code = 89943-0) 79 1 3-88 [facility] HospitalHepatitis Be Bigskpec3932-35-61 22:13:00 * Test Item Value Reference Range Interpretation Comments Hepatitis Be Antibody (test code = 60152-7) Negative Negative Performed at: [facility] [address] [id number] [employer] Cementer: Dasha Lr MD, Phone: [phone] Health HospitalHesharp [place] B Core Total Dpqcjotc5943-90-43 22:13:00* Test Item Value Reference Range Interpretation Comments Hepatitis B Core Total Antibody (test code = 94834-3) Negative Negative [facility] B Surface Mwphdrm9448-65-42 22:13:00* Test Item Value Reference Range Interpretation Comments Hepatitis B Surface Antigen (test code = 5196-1) Negative Negat [place] [facility] B Core IgM Ivbhvyly7507-98-82 22:13:00* Test Item Value Reference Range Interpretation Comments Hepatitis B Core IgM Antibody (test code = 31164-5) Negative Ne gative Performed at: [facility] [address] [id number] Director: Roe Contreras MD, Phone: [phone] Health HospitalAnti-Mitochondrial Xfqmeshh7843-69-46 22:13:00* Test Item Value Reference Range Interpretation Comments Anti-Mitochondrial Antibody (test code = 96701-4) <20.0 0.0- 20.0 Negative 0.0 - 20.0 Equivocal 20.1 - 24.9 Positive > 24.9Mitochondrial (M2) Antibodies are found in 90-96% ofpatients with primary bi liary cirrhosis.Performed at: [facility] [address] [id number] Director: Dasha Lr MD, Phone: [phone] Health HospitalUS ABDOMEN YPOOEKY8008-35-31 08:51:00 [facility] [address] [address] Patient Name: VIOLETTE LAMB MR #: [id number] : 1965 Age/Sex: 54/M Req #: [id number] Adm Physician: PAWEL SALVADOR MD Ordered by: YAJAIRA GRAMAJO MD Report #: [id number] Location: MED/SURG2 Room/Bed: [facility] Procedure: [id number] US/US ABDOMEN LIMITED Exam Date: 10/22/19 Exalissa m Time: 0745 REPORT STATUS: Signed TECHNIQUE: [...] on 10/22/19857 COPY TO: YAJAIRA GRAMAJO MD Xodzt-3-Wtompxdtqzg 2019-10-21 15:56:00* Test Item Value Reference Range Interpretation Comments Ceawp-1-Eghnamqnacl (test code = 1825-9) 171 101-187 Performed at: [facility] [address], [place], [place] [id number] 4Lab Director: RACHELLE Singh MD, Phone: [phone] Health HospitalCeruloplasmin2020-03-23 15:56:00* Test Item Value Reference Range Interpretation Comments Ceruloplasmin (test code = 2064-4) 41.0 16.0-31.0 H [facility] HospitalDirect Uqpxpacip5927-15-94 06:00:00* Test Item Value Reference Range Interpretation Comments Direct Bilirubin (test code = 04165-4) 6.8 0.0-0.5 H [facility] Hospitalerum or plasma conjugated bilirubin measurement (mass/volume)2019-10-21 05:15:00* Test Item Value Reference Range Interpretation Comments Direct Bilirubin (test code = 56209-9) 6.8 0.0-0.5 [facility] plasma conjugated bilirubin measurement (mass/volume)2019-10-21 05:15:00* Test Item Value Reference Range Interpretation Comments Direct Bilirubin (test code = 78065-3) 6.8 0.0-0.5 [facility]er[facility] plasma conjugated bilirubin measurement (mass/volume)2019-10-21 05:15:00* Test Item Value Reference Range Interpretation Comments Direct Bilirubin (test code = 56677-5) 6.8 0.0-0.5 [facility] HospitalBlood acxglxl7498-16-01 11:35:00* Test Item Value Reference Range Interpretation Comments Blood Culture (test code = 73787614) NO GROWTH AFTER 5 DAYS, FINAL REPORT [facility] ktowvfa9415-32-59 11:35:00* Test Item Value Reference Range Interpretation Comments Blood Culture (test code = 99910559) NO GROWTH AFTER 5 DAYS, FINAL REPORT [facility] HospitalBlood vajdlay9919-80-09 11:35:00* Test Item Value Reference Range Interpretation Comments Blood Culture (test code = 43915619) NO GROWTH AFTER 5 DAYS, FINAL REPORT [facility] HospitalChlamydia pneumoniae DNA (PCR)2019-10-20 05:32:00* Test Item Value Reference Range Interpretation Comments Chlamydia pneumoniae DNA (PCR) (test code = Chlamydia pneumoniae DNA (PCR)) NOT DETECTED NOT DETECT [facility] HospitalInfluenza Type A (RT-PCR)2019-10-20 05:32:00* Test Item Value Reference Range Interpretation Comments Influenza Type A (RT-PCR) (test code = 884015651) NOT DETECTED NOT DETECT [facility] HospitalMycoplasma pneumoniae (PCR)2019-10-20 05:32:00* Test Item Value Reference Range Interpretation Comments Mycoplasma pneumoniae (PCR) (test code = Mycoplasma pn eumoniae (PCR)) NOT DETECTED NOT DETECT [facility] HospitalInfluenza Type B (RT-PCR)2019-10-20 05:32:00* Test Item Value Reference Range Interpretation Comments Influenza Type B (RT-PCR) (test code = 200454438) NOT DETECTED NOT DETECT [facility] HospitalRespiratory Syncytial Virus (PCR) 2019-10-20 05:32:00* Test Item Value Reference Range Interpretation Comments Respiratory Syncytial Virus (PCR) (test code = 418795969) NO T DETECTED NOT DETECT [facility] HospitalBordetella pertussis DNA (PCR)2019-10-20 05:32:00* Test Item Value Reference Range Interpretation Comments Bordetella pertussis DNA (PCR) (test code = 163446703) NOT DETEC SHAGGY NOT DETECT [facility] HospitalParainfluenza Type 1 (PCR)2019-10-20 05:32:00* Test Item Value Reference Range Interpretation Comments Parainfluenza Type 1 (PCR) (test code = 230162802) NOT DETECTED NOT DETECT [facility] HospitalParainfluenza Type 2 (PCR)2019-10-20 05:32:00* Test Item Value Reference Range Interpretation Comments Parainfluenza Type 2 (PCR) (test code = 629613740) NOT DETECTED NOT DETECT [facility] HospitalParainfluenza Type 3 (PCR)2019-10-20 05:32:00* Test Item Value Reference Range Interpretation Comments Parainfluenza Type 3 (PCR) (test code = 545251852) NOT DETECTED NOT DETECT [facility] HospitalParainfluenza Type 4 (PCR)2019-10-20 05:32:00* Test Item Value Reference Range Interpretation Comments Parainfluenza Type 4 (PCR) (test code = Parainfluenza Type 4 (PCR)) NOT DETECTED NOT DETECT [facility] HospitalRhinovirus (PCR)2019-10-20 05:32:00* Test Item Value Reference Range Interpretation Comments Rhinovirus (PCR) (test code = 649850608) NOT DETECTED NOT DETECT [facility] HospitalHuhonolulu Metapneumovirus (PCR)2019-10-20 05:32:00* Test Item Value Reference Range Interpretation Comments Human Metapneumovirus (PCR) (test code = 023197940) DETECTED NO T DETECT ABNORMALCHI [facility]Adenovirus (PCR)2019-10-20 05:32:00* Test Item Value Reference Range Interpretation Comments Adenovirus (PCR) (test code = 697157852) NOT DETECTED NOT DETECT [facility] HospitalCoronavirus Type HKU1 (PCR)2019-10-20 05:32:00* Test Item Value Reference Range Interpretation Comments Coronavirus Type HKU1 (PCR) (test code = Coronavirus T ype HKU1 (PCR)) NOT DETECTED NOT DETECT [facility] HospitalCoronavirus Type NL63 (PCR)2019-10-20 05:32:00* Test Item Value Reference Range Interpretation Comments Coronavirus Type NL63 (PCR) (test code = Coronavirus T ype NL63 (PCR)) NOT DETECTED NOT DETECT [facility] HospitalCoronavirus Type OC43 (PCR)2019-10-20 05:32:00* Test Item Value Reference Range Interpretation Comments Coronavirus Type OC43 (PCR) (test code = Coronavirus T ype OC43 (PCR)) NOT DETECTED NOT DETECT [facility] HospitalCoronavirus Type 229E (PCR)2019-10-20 05:32:00* Test Item Value Reference Range Interpretation Comments Coronavirus Type 229E (PCR) (test code = Coronavirus T ype 229E (PCR)) NOT DETECTED NOT DETECT Test performed at [facility] [place] [address]RESULTS HAVE BEEN CALLED TO THE PHYSICIANResolute Health HospitalCHEST SINGLE (PORTABLE)2019-10-19 10:26:00 [facility] [address] [place] [address] Patient Name: VIOLETTE LAMB MR #: [id number] : 1965 Age/Sex: 54/M Req #: [id number] Adm Physician: PAWEL SALVADOR MD Ordered by: PAWEL SALVADOR MD Report #: [id number] Location: [facility] Room/Bed: [place] [address] Procedure: [id number] DX/CHEST SINGLE (PORTABLE) Exam [...] PAWEL SALVADOR MD Influenza Virus Types A,B Llgqzcb0284-44-61 09:17:00* Test Item Value Reference Range Interpretation Comments Influenza Virus Types A,B Antigen (test code = 05725-0) NEGATIVE NEGATIVE [facility] HospitalInfluenza virus A and B antigen identification by pnqtsyfuzhxrlwufco4970-82-45 08:45:00* Test Item Value Reference Range Interpretation Comments Influenza Virus Types A,B Antigen (test code = 62715-0) NEGATIVE NEGATIVE [facility] HospitalFluoroscopic procedure less than one hour tibtlvsr1620-66-60 08:45:00* Test Item Value Reference Range Interpretation Comments Chlamydia pneumoniae DNA (PCR) (test code = Chlamydia pneumoniae DNA (PCR)) NOT DETECTED NOT DETECT [facility] HospitalRespiratory virus jsinj1487-75-64 08:45:00* Test Item Value Reference Range Interpretation Comments Influenza Type A (RT-PCR) (test code = 119048333) NOT DETECTED NOT DETECT [facility] HospitalFluoroscopic procedure less than one hour siulqudu2183-67-19 08:45:00* Test Item Value Reference Range Interpretation Comments Mycoplasma pneumoniae (PCR) (test code = Mycoplasma pn eumoniae (PCR)) NOT DETECTED NOT DETECT [facility] HospitalRespiratory virus ozgri8245-97-14 08:45:00* Test Item Value Reference Range Interpretation Comments Influenza Type B (RT-PCR) (test code = 142992625) NOT DETECTED NOT DETECT [facility] HospitalRespiratory virus vhyza5571-84-21 08:45:00* Test Item Value Reference Range Interpretation Comments Respiratory Syncytial Virus (PCR) (test code = 339391093) NO T DETECTED NOT DETECT [facility] HospitalRespiratory virus oqidd9620-82-42 08:45:00* Test Item Value Reference Range Interpretation Comments Bordetella pertussis DNA (PCR) (test code = 724060343) NOT DETEC [facility] NOT [facility]ECT [facility] bgtvh6365-83-87 08:45:00* Test Item Value Reference Range Interpretation Comments Parainfluenza Type 1 (PCR) (test code = 084186837) NOT DETECTED NOT DETECT [facility] HospitalRespiratory virus bjujs6547-46-16 08:45:00* Test Item Value Reference Range Interpretation Comments Parainfluenza Type 2 (PCR) (test code = 213213245) NOT DETECTED NOT DETECT [facility] dzyji5077-88-93 08:45:00* Test Item Value Reference Range Interpretation Comments Parainfluenza Type 3 (PCR) (test code = 117238009) NOT DETECTED NOT DETECT [facility] HospitalFluoroscopic procedure less than one hour zdogjkna9614-75-89 08:45:00* Test Item Value Reference Range Interpretation Comments Parainfluenza Type 4 (PCR) (test code = Parainfluenza Type 4 (PCR)) NOT DETECTED NOT DETECT [facility] HospitalRespiratory virus mujse8625-71-93 08:45:00* Test Item Value Reference Range Interpretation Comments Rhinovirus (PCR) (test code = 289478118) NOT DETECTED NOT DETECT [facility] HospitalRespiratory virus pgqfy4022-50-56 08:45:00* Test Item Value Reference Range Interpretation Comments Human Metapneumovirus (PCR) (test code = 517061594) DETECTED NO T DETECT ABNORMALCHI [facility] SouthRespiratory virus xhcrp6554-27-07 08:45:00* Test Item Value Reference Range Interpretation Comments Adenovirus (PCR) (test code = 995351334) NOT DETECTED NOT DETECT [facility] HospitalFluoroscopic procedure less than one hour yeaiwvja5798-03-84 08:45:00* Test Item Value Reference Range Interpretation Comments Coronavirus Type 229E (PCR) (test code = Coronavirus T ype 229E (PCR)) NOT DETECTED NOT DETECT Test performed at [facility] [place], [place] [address]RESULTS HAVE BEEN CALLED TO THE PHYSICIANResolute Health HospitalFluoroscopic procedure less than one hour jlwjhijn8751-41-44 08:45:00* Test Item Value Reference Range Interpretation Comments Coronavirus Type HKU1 (PCR) (test code = Coronavirus T ype HKU1 (PCR)) NOT DETECTED NOT DETECT [facility] HospitalFluoroscopic procedure less than one hour auvdtmyx5448-21-55 08:45:00* Test Item Value Reference Range Interpretation Comments Coronavirus Type NL63 (PCR) (test code = Coronavirus T ype NL63 (PCR)) NOT DETECTED NOT DETECT [facility] HospitalFluoroscopic procedure less than one hour hjdegire5170-20-83 08:45:00* Test Item Value Reference Range Interpretation Comments Coronavirus Type OC43 (PCR) (test code = Coronavirus T ype OC43 (PCR)) NOT DETECTED NOT DETECT [facility] HospitalInfluenza virus A and B antigen identification by lheotsstzdykulfmjd9080-46-08 08:45:00* Test Item Value Reference Range Interpretation Comments Influenza Virus Types A,B Antigen (test code = 07508-9) NEGATIVE NEGATIVE [facility] HospitalFluoroscopic procedure less than one hour mgxxwjnk1182-47-70 08:45:00* Test Item Value Reference Range Interpretation Comments Chlamydia pneumoniae DNA (PCR) (test code = Chlamydia pneumoniae DNA (PCR)) NOT DETECTED NOT DETECT [facility] HospitalRespiratory virus yrowm6493-45-59 08:45:00* Test Item Value Reference Range Interpretation Comments Influenza Type A (RT-PCR) (test code = 604615749) NOT DETECTED NOT DETECT [facility] HospitalFluoroscopic procedure less than one hour utromnie3666-19-32 08:45:00* Test Item Value Reference Range Interpretation Comments Mycoplasma pneumoniae (PCR) (test code = Mycoplasma pn eumoniae (PCR)) NOT DETECTED NOT DETECT [facility] HospitalRespiratory virus pildy1332-37-79 08:45:00* Test Item Value Reference Range Interpretation Comments Influenza Type B (RT-PCR) (test code = 109636448) NOT DETECTED NOT DETECT [facility] HospitalRespiratory virus hymyt3004-40-04 08:45:00* Test Item Value Reference Range Interpretation Comments Respiratory Syncytial Virus (PCR) (test code = 535823093) NO T DETECTED NOT DETECT [facility] blhvx5521-79-85 08:45:00* Test Item Value Reference Range Interpretation Comments Bordetella pertussis DNA (PCR) (test code = 554693793) NOT DETEC SHAGGY NOT DETECT [facility] HospitalRespiratory virus jymir5817-76-59 08:45:00* Test Item Value Reference Range Interpretation Comments Parainfluenza Type 1 (PCR) (test code = 678009257) NOT DETECTED NOT DETECT [facility] HospitalRespiratory virus qmsjv3788-73-64 08:45:00* Test Item Value Reference Range Interpretation Comments Parainfluenza Type 2 (PCR) (test code = 647575437) NOT DETECTED NOT DETECT [facility] HospitalRespiratory virus goatz8235-12-43 08:45:00* Test Item Value Reference Range Interpretation Comments Parainfluenza Type 3 (PCR) (test code = 920105001) NOT DETECTED NOT DETECT [facility] HospitalFluoroscopic procedure less than one hour jahomdnu9166-62-41 08:45:00* Test Item Value Reference Range Interpretation Comments Parainfluenza Type 4 (PCR) (test code = Parainfluenza Type 4 (PCR)) NOT DETECTED NOT DETECT [facility] HospitalRespiratory virus zoskl0334-81-43 08:45:00* Test Item Value Reference Range Interpretation Comments Rhinovirus (PCR) (test code = 614151983) NOT DETECTED NOT DETECT [facility] HospitalRespiratory virus uuaxc1020-03-92 08:45:00* Test Item Value Reference Range Interpretation Comments Human Metapneumovirus (PCR) (test code = 311870436) DETECTED NO T DETECT ABNORMALCHI [facility] SouthRespiratory virus bfrfu8886-89-66 08:45:00* Test Item Value Reference Range Interpretation Comments Adenovirus (PCR) (test code = 671819490) NOT DETECTED NOT DETECT [facility] HospitalFluoroscopic procedure less than one hour rkdsbbby8553-54-00 08:45:00* Test Item Value Reference Range Interpretation Comments Coronavirus Type 229E (PCR) (test code = Coronavirus T ype 229E (PCR)) NOT DETECTED NOT DETECT Test performed at [facility] [place], [place] [address]RESULTS HAVE BEEN CALLED TO THE PHYSICIANCHI [facility] SouthFluoroscopic procedure less than one hour fvhqjbee4590-43-10 08:45:00* Test Item Value Reference Range Interpretation Comments Coronavirus Type HKU1 (PCR) (test code = Coronavirus T ype HKU1 (PCR)) NOT DETECTED NOT DETECT [facility] HospitalFluoroscopic procedure less than one hour uqnokasr9828-68-09 08:45:00* Test Item Value Reference Range Interpretation Comments Coronavirus Type NL63 (PCR) (test code = Coronavirus T ype NL63 (PCR)) NOT DETECTED NOT DETECT [facility] HospitalFluoroscopic procedure less than one hour whdfanbx1019-36-32 08:45:00* Test Item Value Reference Range Interpretation Comments Coronavirus Type OC43 (PCR) (test code = Coronavirus T ype OC43 (PCR)) NOT DETECTED NOT DETECT [facility] HospitalInfluenza virus A and B antigen identification by zqkwqgnccutnyjyteg6176-84-36 08:45:00* Test Item Value Reference Range Interpretation Comments Influenza Virus Types A,B Antigen (test code = 34857-4) NEGATIVE NEGATIVE [facility] HospitalFluoroscopic procedure less than one hour mjqgshui0676-14-49 08:45:00* Test Item Value Reference Range Interpretation Comments Chlamydia pneumoniae DNA (PCR) (test code = Chlamydia pneumoniae DNA (PCR)) NOT DETECTED NOT DETECT [facility] HospitalRespiratory virus nmbwl0114-24-32 08:45:00* Test Item Value Reference Range Interpretation Comments Influenza Type A (RT-PCR) (test code = 193267706) NOT DETECTED NOT DETECT [facility] HospitalFluoroscopic procedure less than one hour wxwbfabt0026-22-21 08:45:00* Test Item Value Reference Range Interpretation Comments Mycoplasma pneumoniae (PCR) (test code = Mycoplasma pn eumoniae (PCR)) NOT DETECTED NOT DETECT [facility] HospitalRespiratory virus rgtzy6541-67-00 08:45:00* Test Item Value Reference Range Interpretation Comments Influenza Type B (RT-PCR) (test code = 934642787) NOT DETECTED NOT DETECT [facility] HospitalRespiratory virus swbvx5061-20-95 08:45:00* Test Item Value Reference Range Interpretation Comments Respiratory Syncytial Virus (PCR) (test code = 597131595) NO T DETECTED NOT DETECT [facility] HospitalRespiratory virus tysuy4633-15-93 08:45:00* Test Item Value Reference Range Interpretation Comments Bordetella pertussis DNA (PCR) (test code = 919584959) NOT DETEC SHAGGY NOT DETECT [facility] HospitalRespiratory virus jdrlq2104-27-94 08:45:00* Test Item Value Reference Range Interpretation Comments Parainfluenza Type 1 (PCR) (test code = 743263977) NOT DETECTED NOT DETECT [facility] HospitalRespiratory virus eccop5162-19-60 08:45:00* Test Item Value Reference Range Interpretation Comments Parainfluenza Type 2 (PCR) (test code = 391474931) NOT DETECTED NOT DETECT [facility] HospitalRespiratory virus gbluu9623-07-26 08:45:00* Test Item Value Reference Range Interpretation Comments Parainfluenza Type 3 (PCR) (test code = 862478301) NOT DETECTED NOT DETECT [facility] HospitalFluoroscopic procedure less than one hour swfekznb2203-64-60 08:45:00* Test Item Value Reference Range Interpretation Comments Parainfluenza Type 4 (PCR) (test code = Parainfluenza Type 4 (PCR)) NOT DETECTED NOT DETECT [facility] HospitalRespiratory virus vqstl0158-15-75 08:45:00* Test Item Value Reference Range Interpretation Comments Rhinovirus (PCR) (test code = 588699503) NOT DETECTED NOT DETECT [facility] HospitalRespiratory virus uzlpo6615-39-75 08:45:00* Test Item Value Reference Range Interpretation Comments Human Metapneumovirus (PCR) (test code = 216181369) DETECTED NO T DETECT ABNORMALResolute Health HospitalRespiratory virus ifczi3867-62-33 08:45:00* Test Item Value Reference Range Interpretation Comments Adenovirus (PCR) (test code = 066938967) NOT DETECTED NOT DETECT [facility] HospitalFluoroscopic procedure less than one hour vlshetvv6185-61-50 08:45:00* Test Item Value Reference Range Interpretation Comments Coronavirus Type 229E (PCR) (test code = Coronavirus T ype 229E (PCR)) NOT DETECTED NOT DETECT Test performed at [facility] [place] [address]RESULTS [facility] BEEN [facility]Fluoroscopic procedure less than one hour myiqqldx9457-19-41 08:45:00* Test Item Value Reference Range Interpretation Comments Coronavirus Type HKU1 (PCR) (test code = Coronavirus T ype HKU1 (PCR)) NOT DETECTED NOT DETECT [facility] HospitalFluoroscopic procedure less than one hour becsgxeq5996-81-62 08:45:00* Test Item Value Reference Range Interpretation Comments Coronavirus Type NL63 (PCR) (test code = Coronavirus T ype NL63 (PCR)) NOT DETECTED NOT DETECT [facility] HospitalFluoroscopic procedure less than one hour hhdvsxfo4110-58-33 08:45:00* Test Item Value Reference Range Interpretation Comments Coronavirus Type OC43 (PCR) (test code = Coronavirus T ype OC43 (PCR)) NOT DETECTED NOT DETECT [facility] HospitalDifferential Total Cells Counted 2019-10-19 08:02:00* Test Item Value Reference Range Interpretation Comments Differential Total Cells Counted (test code = Differen tial Total Cells Counted) 100 [facility] HospitalNeutrophils % (Manual)2019-10-19 08:02:00 * Test Item Value Reference Range Interpretation Comments Neutrophils % (Manual) (test code = 37326-3) 83 40-74 H [facility] HospitalLymphocytes % (Manual)2019-10-19 08:02:00 * Test Item Value Reference Range Interpretation Comments Lymphocytes % (Manual) (test code = 737-7) 6 19-48 L [facility] HospitalMonocytes % (Manual)2019-10-19 08:02:00* Test Item Value Reference Range Interpretation Comments Monocytes % (Manual) (test code = 744-3) 6 3.4-9.0 [facility] HospitalEosinophils % (Manual)2019-10-19 08:02:00 * Test Item Value Reference Range Interpretation Comments Eosinophils % (Manual) (test code = 714-6) 3 0-7 [facility] HospitalBasophils % (Manual)2019-10-19 08:02:00* Test Item Value Reference Range Interpretation Comments Basophils % (Manual) (test code = 80463-0) 1 0-1.5 [facility] HospitalMyelocytes %2019-10-19 08:02:00* Test Item Value Reference Range Interpretation Comments Myelocytes % (test code = 749-2) 1 0-0 H [facility] HospitalPlatelet Vudxzcub7635-21-60 08:02:00* Test Item Value Reference Range Interpretation Comments Platelet Estimate (test code = 29583-3) MODERATELY DECREASED [facility] HospitalAnisocytosis2020-03-21 08:02:00* Test Item Value Reference Range Interpretation Comments Anisocytosis (test code = 702-1) MODE [facility] HospitalMacrocytosis2020-03-21 08:02:00* Test Item Value Reference Range Interpretation Comments Macrocytosis (test code = 738-5) SLIGHT [facility] HospitalRed Cell Morphology Qahszxo3197-65-63 08:02:00* Test Item Value Reference Range Interpretation Comments Red Cell Morphology Comment (test code = 6742-1) ABNORMAL [facility] HospitalProthrombin Zuiy0339-21-54 06:23:00* Test Item Value Reference Range Interpretation Comments Prothrombin Time (test code = 5902-2) 13.8 11.9-14.5 [facility] HospitalProthromb Time International Ratio 2019-10-19 06:23:00* Test Item Value Reference Range Interpretation Comments Prothromb Time International Ratio (test code = 6301-6) 1.00 Oral Anticoagulant Therapy INR Values:1. Low Intensity Therapy 1.5 - 2.02 . Moderate Intensity Therapy 2.0 - 3.03. High Intensity Therapy(1) 2.5 - 3. 54. High Intensity Therapy(2) 3.0 - 4.05. Panic Value INR > 5.0 [facility] SINGLE (PORTABLE)2019-10-19 06:04:00 [facility] [address] [place] [address] Patient Name: VIOLETTE LAMB MR #: [id number] : 1965 Age/Sex: 54/M Req #: [id number] Adm Physician: PAWEL SALVADOR MD Ordered by: PAWEL SALVADOR MD Report #: [id number] Location: MED/SURG Room/Bed: [facility] Procedure: [...] ribed By: DARRON on 10/19/19609 COPY TO: PAWEL SALVADOR MD Fluoroscopic procedure less than one hour ruiighds8193-98-88 05:30:00* Test Item Value Reference Range Interpretation Comments Differential Total Cells Counted (test code = Differen tial Total Cells Counted) [address] [facility] [place] blood neutrophils/100 leukocytes 2019-10-19 05:30:00* Test Item Value Reference Range Interpretation Comments Neutrophils % (Manual) (test code = 62910-9) 83 40-[address] [facility] [place] blood lymphocytes/100 leukocytes 2019-10-19 05:30:00* Test Item Value Reference Range Interpretation Comments Lymphocytes % (Manual) (test code = 737-7) 6 19-[address] [facility] [place] blood monocytes/100 leukocytes 2019-10-19 05:30:00* Test Item Value Reference Range Interpretation Comments Monocytes % (Manual) (test code = 744-3) 6 3.4-9.[address] [facility] [place] blood eosinophil count as percentage of total gycjzkamtg4111-77-21 05:30:00* Test Item Value Reference Range Interpretation Comments Eosinophils % (Manual) (test code = 714-6) 3 0-[address] [facility] [place] basophil tyqojthzsz6870-54-83 05:30:00* Test Item Value Reference Range Interpretation Comments Basophils % (Manual) (test code = 37000-6) 1 0-1.[address] [facility] [place] blood myelocytes/100 leukocytes 2019-10-19 05:30:00* Test Item Value Reference Range Interpretation Comments Myelocytes % (test code = 749-2) 1 0-0 [facility] platelets count by estimate (number/volume)2019-10-19 05:30:00* Test Item Value Reference Range Interpretation Comments Platelet Estimate (test code = 66118-0) MODERATELY DECREASED [facility] anisocytosis detection by light topudiabff4261-05-93 05:30:00* Test Item Value Reference Range Interpretation Comments Anisocytosis (test code = 702-1) MODE [facility] HospitalBl[facility] macrocytes detection by light wcpqostxec2211-06-05 05:30:00* Test Item Value Reference Range Interpretation Comments Macrocytosis (test code = 738-5) SLIGHT [facility] HospitalRBC pwmtrskkyo8860-21-10 05:30:00* Test Item Value Reference Range Interpretation Comments Red Cell Morphology Comment (test code = 6742-1) ABNORMAL [facility] HospitalFluoroscopic procedure less than one hour bvtrwjpg5696-81-00 05:30:00* Test Item Value Reference Range Interpretation Comments Differential Total Cells Counted (test code = Differherbert tial Total Cells Counted) [address] [facility] [place] [place] blood neutrophils/100 leukocytes 2019-10-19 05:30:00* Test Item Value Reference Range Interpretation Comments Neutrophils % (Manual) (test code = 44456-5) 83 40-[address] [facility] [place] [place] blood lymphocytes/100 leukocytes 2019-10-19 05:30:00* Test Item Value Reference Range Interpretation Comments Lymphocytes % (Manual) (test code = 737-7) 6 19-[address] [facility] [place] [place] blood monocytes/100 leukocytes 2019-10-19 05:30:00* Test Item Value Reference Range Interpretation Comments Monocytes % (Manual) (test code = 744-3) 6 3.4-9.[address] [facility] [place] blood eosinophil count as percentage of total nkzwientpb4465-38-95 05:30:00* Test Item Value Reference Range Interpretation Comments Eosinophils % (Manual) (test code = 714-6) 3 0-7 [facility] nfcjzpstaw0260-39-01 05:30:00* Test Item Value Reference Range Interpretation Comments Basophils % (Manual) (test code = 57503-1) 1 0-1.[address] [facility] [place], [place] blood myelocytes/100 leukocytes 2019-10-19 05:30:00* Test Item Value Reference Range Interpretation Comments Myelocytes % (test code = 749-2) 1 0-0 [facility] platelets count by estimate (number/volume)2019-10-19 05:30:00* Test Item Value Reference Range Interpretation Comments Platelet Estimate (test code = 56612-5) MODERATELY DECREASED [facility] anisocytosis detection by light aovplckcjr9929-93-47 05:30:00* Test Item Value Reference Range Interpretation Comments Anisocytosis (test code = 702-1) MODE [facility] macrocytes detection by light pcfvnvhnxz5229-63-01 05:30:00* Test Item Value Reference Range Interpretation Comments Macrocytosis (test code = 738-5) SLIGHT [facility] HospitalRBC cpdznfhmor3251-84-24 05:30:00* Test Item Value Reference Range Interpretation Comments Red Cell Morphology Comment (test code = 6742-1) ABNORMAL [facility] HospitalFluoroscopic procedure less than one hour sqbdrars8484-93-43 05:30:00* Test Item Value Reference Range Interpretation Comments Differential Total Cells Counted (test code = Jarret tial Total Cells Counted) [address] [facility] [place] blood neutrophils/100 leukocytes 2019-10-19 05:30:00* Test Item Value Reference Range Interpretation Comments Neutrophils % (Manual) (test code = 76008-2) 83 40-[address] [facility] [place] blood lymphocytes/100 leukocytes 2019-10-19 05:30:00* Test Item Value Reference Range Interpretation Comments Lymphocytes % (Manual) (test code = 737-7) 6 19-[address] [facility] [place] blood monocytes/100 leukocytes 2019-10-19 05:30:00* Test Item Value Reference Range Interpretation Comments Monocytes % (Manual) (test code = 744-3) 6 3.4-9.[address] [facility] [place] blood eosinophil count as percentage of total smgidymjpn1713-33-80 05:30:00* Test Item Value Reference Range Interpretation Comments Eosinophils % (Manual) (test code = 714-6) 3 0-[address] [facility] [place] basophil tvqgvbaxht4645-47-16 05:30:00* Test Item Value Reference Range Interpretation Comments Basophils % (Manual) (test code = 55764-0) 1 0-1.[address] [facility] [place] blood myelocytes/100 leukocytes 2019-10-19 05:30:00* Test Item Value Reference Range Interpretation Comments Myelocytes % (test code = 749-2) 1 0-0 [facility] platelets count by estimate (number/volume)2019-10-19 05:30:00* Test Item Value Reference Range Interpretation Comments Platelet Estimate (test code = 79090-6) MODERATELY DECREASED [facility] anisocytosis detection by light jdunyqcthr6113-68-26 05:30:00* Test Item Value Reference Range Interpretation Comments Anisocytosis (test code = 702-1) MODE [facility] macrocytes detection by light dksobystxf8831-75-95 05:30:00* Test Item Value Reference Range Interpretation Comments Macrocytosis (test code = 738-5) SLIGHT [facility] HospitalRB usfhkfuitj8688-07-41 05:30:00* Test Item Value Reference Range Interpretation Comments Red Cell Morphology Comment (test code = 6742-1) ABNORMAL [facility] HospitalProthrombin time (PT) in platelet poor plasma by coagulation bgwal1509-96-77 05:25:00* Test Item Value Reference Range Interpretation Comments Prothrombin Time (test code = 5902-2) 13.8 11.9-14.5 [facility] HospitalINR in Platelet poor plasma by Coagulation xhrhf2071-55-83 05:25:00* Test Item Value Reference Range Interpretation Comments Prothromb Time International Ratio (test code = 6301-6) 1.00 Oral Anticoagulant Therapy INR Values:1. Low Intensity Therapy 1.5 - 2.02 . Moderate Intensity Therapy 2.0 - 3.03. High Intensity Therapy(1) 2.5 - 3. 54. High Intensity Therapy(2) 3.0 - 4.05. Panic Value INR > 5.0 [facility] HospitalProthrombin time (PT) in platelet poor plasma by coagulation iltrj1217-84-92 05:25:00* Test Item Value Reference Range Interpretation Comments Prothrombin Time (test code = 5902-2) 13.8 11.9-14.5 [facility] HospitalINR in Platelet poor plasma by Coagulation szhpr4924-36-89 05:25:00* Test Item Value Reference Range Interpretation Comments Prothromb Time International Ratio (test code = 6301-6) 1.00 Oral Anticoagulant Therapy INR Values:1. Low Intensity Therapy 1.5 - 2.02 . Moderate Intensity Therapy 2.0 - 3.03. High Intensity Therapy(1) 2.5 - 3. 54. High Intensity Therapy(2) 3.0 - 4.05. Panic Value INR > 5.0 [facility] HospitalIndirect Hazxnjruh0666-46-08 03:39:00* Test Item Value Reference Range Interpretation Comments Indirect Bilirubin (test code = 1971-1) 2.9 0.3-1.2 H [facility] HospitalFerritin2020-03-20 23:10:00* Test Item Value Reference Range Interpretation Comments Ferritin (test code = 2276-4) > 2000.00 21.81-274.66 H [facility] HospitalVitamin B12 Gtluz0356-26-45 23:09:00* Test Item Value Reference Range Interpretation Comments Vitamin B12 Level (test code = 28834-6) 401 213-816 [facility] HospitalFolate2020-03-20 23:09:00* Test Item Value Reference Range Interpretation Comments Folate (test code = 2284-8) 9.5 7.0-15.4 [facility] HospitalPercent Reticulocyte Gqinh2816-92-16 22:26:00* Test Item Value Reference Range Interpretation Comments Percent Reticulocyte Count (test code = 20817-2) 5.5 0.8-2 .2 H [facility] HospitalIron Dhrvs8354-41-94 22:25:00* Test Item Value Reference Range Interpretation Comments Iron Level (test code = 2498-4) 47 65-175 L [facility] HospitalTotal Iron Binding Qubwydwk0042-64-64 22:25:00* Test Item Value Reference Range Interpretation Comments Total Iron Binding Capacity (test code = 2500-7) 223 261-4 78 L [facility] HospitalPercent Iron Raggpjotgc7267-85-58 22:25:00* Test Item Value Reference Range Interpretation Comments Percent Iron Saturation (test code = 2502-3) 21 15-50 [facility] HospitalTransferrin2020-03-20 22:25:00* Test Item Value Reference Range Interpretation Comments Transferrin (test code = 3034-6) 159 174-364 L [facility] HospitalQualitative serum or plasma hepatitis B virus e antibody by enzyme muwkrkbeoqw0318-77-52 21:30:00* Test Item Value Reference Range Interpretation Comments Hepatitis Be Antibody (test code = 71552-0) Negative Negative Performed at: [facility] [id number] [employer]er: Dasha Lr MD, Phone: [phone] [facility] Hospitalerum or plasma alpha 1 antitrypsin measurement (mass/volume) 2019-10-18 21:30:00* Test Item Value Reference Range Interpretation Comments Tpivi-8-Netgbeleisi (test code = 1825-9) 171 101-187 Performed at: [facility] [id number] 4Lab Director: RACHELLE Singh MD, Phone: [phone] [facility] Hospitalerum or plasma ceruloplasmin measurement (mass/volume)2019-10-18 21:30:00* Test Item Value Reference Range Interpretation Comments Ceruloplasmin (test code = 2064-4) 41.0 16.0-31.0 [facility] Hospitalerum or plasma hepatitis B virus core antibody detection by rgsdgnxcgha4472-76-74 21:30:00* Test Item Value Reference Range Interpretation Comments Hepatitis B Core Total Antibody (test code = 30182-7) Negative Negative [facility] Hospitalerum or plasma hepatitis A virus IgM antibody detection by ajhnmcfafzb0410-91-43 21:30:00* Test Item Value Reference Range Interpretation Comments Hepatitis A IgM Antibody (test code = 75121-0) Negative [facility] Hospitalerum or plasma hepatitis B virus surface antigen detection by yikvnllbjyz5003-93-64 21:30:00* Test Item Value Reference Range Interpretation Comments Hepatitis B Surface Antigen (test code = 5196-1) Negative [facility] Hospitalerum or plasma hepatitis B virus core IgM antibody detection by dmvzfjyhimw8997-50-20 21:30:00* Test Item Value Reference Range Interpretation Comments Hepatitis B Core IgM Antibody (test code = 51402-7) Negative [facility] Hospitalerum hepatitis C virus antibody mtbnformv8303-37-52 21:30:00* Test Item Value Reference Range Interpretation Comments Hepatitis C Antibody (test code = 57124-7) <0.1 Reference Range: 0.0 - 0.9 s/co ratioNegative: < 0.8Indeterminate: 0.8 - 0.9Positive: > 0.9The CDC recommends that a positive HCV antibody resultbe followed up with a HCV Nucleic Acid Amplificationtest (141271).Testing performed by:[employer] [address] [id number]: Roe Contreras [facility] Centererum mitochondria M2 IgG antibody assay (units/volume)2019-10-18 21:30:00* Test Item Value Reference Range Interpretation Comments Anti-Mitochondrial Antibody (test code = 40324-5) <20.0 0.0- 20.0 Negative 0.0 - 20.0 Equivocal 20.1 - 24.9 Positive > 24.9Mitochondrial (M2) Antibodies are found in 90-96% ofpatients with primary bi liary cirrhosis.Performed at: [facility] [id number] Director: Dasha Lr MD, Phone: [phone] [facility] Hospitalerum nuclear antibody titer by idmltooqcngxctixby0643-37-06 21:30:00* Test Item Value Reference Range Interpretation Comments Anti-Nuclear Antibody Screen (test code = 5048-4) Negative [facility] Hospitalerum or plasma alkaline phosphatase measurement (enzymatic activity/volume)2019-10-18 21:30:00* Test Item Value Reference Range Interpretation Comments Alkaline Phosphatase (test code = 6768-6) 865 39-117 [facility] Hospitalerum or plasma intestinal alkaline phosphatase/total alkaline phosphatase bznqm3296-40-26 21:30:00* Test Item Value Reference Range Interpretation Comments Alkaline Phosphatase Iso-Intestine (test code = 25817-1) 0 0-18 Performed at: [facility] [address] [place], [place] [id number] Director: Roe Contreras MD, Phone: [phone] at: [address] [id number] Director: Dasha Lr MD, Ph one: [phone] [facility] Hospitalerum or plasma bone alkaline phosphatase/alkaline phosphatase.ppayc2122-23-13 21:30:00* Test Item Value Reference Range Interpretation Comments Alkaline Phosphatase Iso-Bone (test code = 27476-2) 21 [facility] Hospitalerum or plasma liver alkaline phosphatase/total alkaline phosphatase ktura4384-14-98 21:30:00* Test Item Value Reference Range Interpretation Comments Alkaline Phosphatase Iso-Liver (test code = 75673-1) 79 1 [facility] HospitalQualitative serum or plasma hepatitis B virus e antibody by enzyme mjzlmztsgnr9740-79-61 21:30:00* Test Item Value Reference Range Interpretation Comments Hepatitis Be Antibody (test code = 54562-1) Negative Negative Performed at: [address] [id number] [employer]: Dasha Lr MD, Phone: [phone] [facility] Hospitalerum or plasma alpha 1 antitrypsin measurement (mass/volume) 2019-10-18 21:30:00* Test Item Value Reference Range Interpretation Comments Sdtxb-7-Vdpollgggyo (test code = 1825-9) 171 101-187 Performed at: [facility] [facility] [address], [place] [id number] 4Lab Director: RACHELLE Singh MD, Phone: [phone] [facility] Hospitalerum or plasma ceruloplasmin measurement (mass/volume)2019-10-18 21:30:00* Test Item Value Reference Range Interpretation Comments Ceruloplasmin (test code = 2064-4) 41.0 16.0-31.0 [facility] Hospitalerum or plasma hepatitis B virus core antibody detection by gpdbxlsdqpc5647-00-39 21:30:00* Test Item Value Reference Range Interpretation Comments Hepatitis B Core Total Antibody (test code = 04528-3) Negative Negative [facility] Hospitalerum or plasma hepatitis A virus IgM antibody detection by latrwdmaquh1628-00-30 21:30:00* Test Item Value Reference Range Interpretation Comments Hepatitis A IgM Antibody (test code = 87543-0) Negative [facility] Hospitalerum or plasma hepatitis B virus surface antigen detection by wpmdupobagl5883-87-70 21:30:00* Test Item Value Reference Range Interpretation Comments Hepatitis B Surface Antigen (test code = 5196-1) Negative [facility] Hospitalerum or plasma hepatitis B virus core IgM antibody detection by mwchiblcrdx7022-26-21 21:30:00* Test Item Value Reference Range Interpretation Comments Hepatitis B Core IgM Antibody (test code = 33573-7) Negative [facility] Hospitalerum hepatitis C virus antibody jenjcbrnq1344-21-31 21:30:00* Test Item Value Reference Range Interpretation Comments Hepatitis C Antibody (test code = 58700-3) <0.1 Reference Range: 0.0 - 0.9 s/co ratioNegative: < 0.8Indeterminate: 0.8 - 0.9Positive: > 0.9The CDC recommends that a positive HCV antibody resultbe followed up with a HCV Nucleic Acid Amplificationtest (601454).Testing performed by:[employer] [address] [id number]: Roe Contreras [facility] Centererum mitochondria M2 IgG antibody assay (units/volume)2019-10-18 21:30:00* Test Item Value Reference Range Interpretation Comments Anti-Mitochondrial Antibody (test code = 94660-1) <20.0 0.0- 20.0 Negative 0.0 - 20.0 Equivocal 20.1 - 24.9 Positive > 24.9Mitochondrial (M2) Antibodies are found in 90-96% ofpatients with primary bi liary cirrhosis.Performed at: [address] [id number] Director: Dasha Lr MD, Phone: [phone] [facility] Hospitalerum nuclear antibody titer by xxkzgsoyggmgcrwjhu6731-78-24 21:30:00* Test Item Value Reference Range Interpretation Comments Anti-Nuclear Antibody Screen (test code = 5048-4) Negative [facility] Hospitalerum or plasma alkaline phosphatase measurement (enzymatic activity/volume)2019-10-18 21:30:00* Test Item Value Reference Range Interpretation Comments Alkaline Phosphatase (test code = 6768-6) 865 39-117 [facility] Hospitalerum or plasma intestinal alkaline phosphatase/total alkaline phosphatase fmmau4896-92-09 21:30:00* Test Item Value Reference Range Interpretation Comments Alkaline Phosphatase Iso-Intestine (test code = 57317-5) 0 0-18 Performed at: [employer] [id number] Director: Roe Contreras MD, Phone: [phone] at: [employer] [id number] Director: Dasha Lr MD, Ph one: [phone] [facility] Hospitalerum or plasma bone alkaline phosphatase/alkaline phosphatase.idfkv4772-90-49 21:30:00* Test Item Value Reference Range Interpretation Comments Alkaline Phosphatase Iso-Bone (test code = 59165-9) 21 12 -68 [facility] Hospitalerum or plasma liver alkaline phosphatase/total alkaline phosphatase imoax9451-09-71 21:30:00* Test Item Value Reference Range Interpretation Comments Alkaline Phosphatase Iso-Liver (test code = 06405-8) 79 1 3-88 [facility] HospitalQualitative serum or plasma hepatitis B virus e antibody by enzyme repkcmpkuul0465-73-78 21:30:00* Test Item Value Reference Range Interpretation Comments Hepatitis Be Antibody (test code = 28607-9) Negative Negative Performed at: [employer] [id number] [employer]er: Dasha Lr MD, Phone: [phone] [facility] Hospitalerum or plasma alpha 1 antitrypsin measurement (mass/volume) 2019-10-18 21:30:00* Test Item Value Reference Range Interpretation Comments Woqap-3-Ihhyudxyinl (test code = 1825-9) 171 101-187 Performed at: [employer], [place], [place] [id number] 4Lab Director: RACHELLE Singh MD, Phone: [phone] [facility] Hospitalerum or plasma ceruloplasmin measurement (mass/volume)2019-10-18 21:30:00* Test Item Value Reference Range Interpretation Comments Ceruloplasmin (test code = 2064-4) 41.0 16.0-31.0 [facility] Hospitalerum or plasma hepatitis B virus core antibody detection by phourmcycfd5424-06-53 21:30:00* Test Item Value Reference Range Interpretation Comments Hepatitis B Core Total Antibody (test code = 49642-5) Negative Negative [facility] Hospitalerum or plasma hepatitis A virus IgM antibody detection by zshbdvarqro4987-59-72 21:30:00* Test Item Value Reference Range Interpretation Comments Hepatitis A IgM Antibody (test code = 23233-5) Negative [facility] Hospitalerum or plasma hepatitis B virus surface antigen detection by dyvczmenmny6653-49-12 21:30:00* Test Item Value Reference Range Interpretation Comments Hepatitis B Surface Antigen (test code = 5196-1) Negative [facility] Hospitalerum or plasma hepatitis B virus core IgM antibody detection by ttxcviugwhq0951-58-00 21:30:00* Test Item Value Reference Range Interpretation Comments Hepatitis B Core IgM Antibody (test code = 09859-6) Negative [facility] Hospitalerum hepatitis C virus antibody pksenmtpc8844-73-63 21:30:00* Test Item Value Reference Range Interpretation Comments Hepatitis C Antibody (test code = 27169-1) <0.1 Reference Range: 0.0 - 0.9 s/co ratioNegative: < 0.8Indeterminate: 0.8 - 0.9Positive: > 0.9The CDC recommends that a positive HCV antibody resultbe followed up with a HCV Nucleic Acid Amplificationtest (632846).Testing performed by:[employer] [address] [place], [place] [id number]: Roe Contreras [facility] Centererum mitochondria M2 IgG antibody assay (units/volume)2019-10-18 21:30:00* Test Item Value Reference Range Interpretation Comments Anti-Mitochondrial Antibody (test code = 51067-9) <20.0 0.0- 20.0 Negative 0.0 - 20.0 Equivocal 20.1 - 24.9 Positive > 24.9Mitochondrial (M2) Antibodies are found in 90-96% ofpatients with primary bi liary cirrhosis.Performed at: [employer] [id number] Director: Dasha Lr MD, Phone: [phone] [facility] Hospitalerum nuclear antibody titer by lqbbwcffnslqawddgi0938-29-70 21:30:00* Test Item Value Reference Range Interpretation Comments Anti-Nuclear Antibody Screen (test code = 5048-4) Negative [facility] Hospitalerum or plasma alkaline phosphatase measurement (enzymatic activity/volume)2019-10-18 21:30:00* Test Item Value Reference Range Interpretation Comments Alkaline Phosphatase (test code = 6768-6) 865 39-117 [facility] Hospitalerum or plasma intestinal alkaline phosphatase/total alkaline phosphatase uvuhq3961-54-57 21:30:00* Test Item Value Reference Range Interpretation Comments Alkaline Phosphatase Iso-Intestine (test code = 66119-3) 0 0-18 Performed at: [facility] [id number] Director: Roe Contreras MD, Phone: [phone] at: [facility] [address] [place], [place] [id number] Director: Dasha Lr MD, Ph one: [phone] [facility] Hospitalerum or plasma bone alkaline phosphatase/alkaline phosphatase.jmgng0100-65-87 21:30:00* Test Item Value Reference Range Interpretation Comments Alkaline Phosphatase Iso-Bone (test code = 37110-1) 21 12 -68 [facility] Hospitalerum or plasma liver alkaline phosphatase/total alkaline phosphatase kzjsq4742-38-75 21:30:00* Test Item Value Reference Range Interpretation Comments Alkaline Phosphatase Iso-Liver (test code = 80820-1) 79 1 3-88 [facility] HospitalCHEST SINGLE (PORTABLE)2019-10-18 21:01:00 [facility] [address] [address] Patient Name: VIOLETTE LAMB MR #: [id number] : 1965 Age/Sex: 54/M Req #: [id number] [facility] Physician: PAWEL SALVADOR MD Ordered by: PAWEL SALVADOR MD Report #: [id number] Location: MED/SURG Room/Bed: [facility] Procedure: [...] 10/18/192102 COPY TO: PAWEL SALVADOR MD Creatine Jhkwsx6274-61-68 14:56:00* Test Item Value Reference Range Interpretation Comments Creatine Kinase (test code = 2157-6) 38 30-200 [facility] HospitalCreatine Kinase WK4308-38-14 14:56:00* Test Item Value Reference Range Interpretation Comments Creatine Kinase MB (test code = 60793-7) 1.20 0-5.0 [facility] HospitalTroponin N0218-44-11 14:56:00* Test Item Value Reference Range Interpretation Comments Troponin I (test code = QGF0751) 0.059 0-0.300 [facility] HospitalActivated Partial Thromboplast Time 2019-10-18 13:15:00* Test Item Value Reference Range Interpretation Comments Activated Partial Thromboplast Time (test code = 78517-2) 30.1 23.8-35.5 [facility] HospitalAutomated reticulocyte count as percentage of total mfzimjizcfuf2582-06-19 12:40:00* Test Item Value Reference Range Interpretation Comments Percent Reticulocyte Count (test code = 59465-8) 5.5 0.8-2 .2 [facility] HospitalActivated partial thromboplastin time (aPTT) in platelet poor plasma by coagulation nkjvj4907-72-98 12:40:00* Test Item Value Reference Range Interpretation Comments Activated Partial Thromboplast Time (test code = 64215-0) 30.1 23.8-35.5 [facility] Hospitalerum or plasma iron measurement (mass/volume)2019-10-18 12:40:00* Test Item Value Reference Range Interpretation Comments Iron Level (test code = 2498-4) 47 65-175 [facility] Hospitalerum or plasma iron binding capacity measurement (mass/volume)2019-10-18 12:40:00* Test Item Value Reference Range Interpretation Comments Total Iron Binding Capacity (test code = 2500-7) 223 261-4 78 [facility] Hospitalerum or plasma iron saturation measurement (mass fraction)2019-10-18 12:40:00* Test Item Value Reference Range Interpretation Comments Percent Iron Saturation (test code = 2502-3) 21 15-50 [facility] Hospitalerum or plasma transferrin measurement (mass/volume)2019-10-18 12:40:00* Test Item Value Reference Range Interpretation Comments Transferrin (test code = 3034-6) 159 174-364 [facility] Hospitalerum or plasma ferritin measurement (mass/volume)2019-10-18 12:40:00* Test Item Value Reference Range Interpretation Comments Ferritin (test code = 2276-4) > 2000.00 21.81-274.66 [facility] Hospitalerum or plasma indirect bilirubin measurement (mass/volume)2019-10-18 12:40:00* Test Item Value Reference Range Interpretation Comments Indirect Bilirubin (test code = 1971-1) 2.9 0.3-1.2 [facility] Hospitalerum or plasma creatine kinase measurement (enzymatic activity/volume)2019-10-18 12:40:00* Test Item Value Reference Range Interpretation Comments Creatine Kinase (test code = 2157-6) 38 30-200 [facility] Hospitalerum or plasma creatine kinase MB measurement (mass/volume)2019-10-18 12:40:00* Test Item Value Reference Range Interpretation Comments Creatine Kinase MB (test code = 65968-7) 1.20 0-5.0 [facility] HospitalTroponin I measurement by highly sensitive enzyme ineelxittfe1132-49-82 12:40:00* Test Item Value Reference Range Interpretation Comments Troponin I (test code = 82051-0) 0.059 0-0.300 [facility] HospitalBlood cobalamin (vitamin B12) measurement (mass/volume)2019-10-18 12:40:00* Test Item Value Reference Range Interpretation Comments Vitamin B12 Level (test code = 38492-7) 401 213-816 [facility] Hospitalerum or plasma folate measurement (mass/volume)2019-10-18 12:40:00* Test Item Value Reference Range Interpretation Comments Folate (test code = 2284-8) 9.5 7.0-15.4 [facility] HospitalAutomated reticulocyte count as percentage of total urouomzeubut1513-23-25 12:40:00* Test Item Value Reference Range Interpretation Comments Percent Reticulocyte Count (test code = 91953-9) 5.5 0.8-2 .2 [facility] HospitalActivated partial thromboplastin time (aPTT) in platelet poor plasma by coagulation [id number] 12:40:00* Test Item Value Reference Range Interpretation Comments Activated Partial Thromboplast Time (test code = 09042-9) 30.1 23.8-35.5 [facility] (mass/volume)2019-10-18 12:40:00* Test Item Value Reference Range Interpretation Comments Iron Level (test code = 2498-4) 47 65-175 [facility] iron binding capacity measurement (mass/volume)2019-10-18 12:40:00* Test Item Value Reference Range Interpretation Comments Total Iron Binding Capacity (test code = 2500-7) 223 261-4 78 [facility] iron saturation measurement (mass fraction)2019-10-18 12:40:00* Test Item Value Reference Range Interpretation Comments Percent Iron Saturation (test code = 2502-3) 21 15-50 [facility] transferrin measurement (mass/volume)2019-10-18 12:40:00* Test Item Value Reference Range Interpretation Comments Transferrin (test code = 3034-6) 159 174-364 [facility] ferritin measurement (mass/volume)2019-10-18 12:40:00* Test Item Value Reference Range Interpretation Comments Ferritin (test code = 2276-4) > 2000.00 21.81-274.66 [facility] indirect bilirubin measurement (mass/volume)2019-10-18 12:40:00* Test Item Value Reference Range Interpretation Comments Indirect Bilirubin (test code = 1971-1) 2.9 0.3-1.2 [facility] creatine kinase measurement (enzymatic activity/volume)2019-10-18 12:40:00* Test Item Value Reference Range Interpretation Comments Creatine Kinase (test code = 2157-6) 38 30-200 [facility] creatine kinase MB measurement (mass/volume)2019-10-18 12:40:00* Test Item Value Reference Range Interpretation Comments Creatine Kinase MB (test code = 54277-1) 1.20 0-5.0 [facility] by highly sensitive enzyme [id number] 12:40:00* Test Item Value Reference Range Interpretation Comments Troponin I (test code = 29469-0) 0.059 0-0.300 [facility]Blood cobalamin (vitamin B12) measurement (mass/volume)2019-10-18 12:40:00* Test Item Value Reference Range Interpretation Comments Vitamin B12 Level (test code = 93801-1) 401 213-816 [facility] folate measurement (mass/volume)2019-10-18 12:40:00* Test Item Value Reference Range Interpretation Comments Folate (test code = 2284-8) 9.5 7.0-15.4 [facility] HospitalAutomated reticulocyte count as percentage of total [id number] 12:40:00* Test Item Value Reference Range Interpretation Comments Percent Reticulocyte Count (test code = 52159-7) 5.5 0.8-2 .2 [facility] iron measurement (mass/volume)2019-10-18 12:40:00* Test Item Value Reference Range Interpretation Comments Iron Level (test code = 2498-4) 47 65-175 [facility] iron binding capacity measurement (mass/volume)2019-10-18 12:40:00* Test Item Value Reference Range Interpretation Comments Total Iron Binding Capacity (test code = 2500-7) 223 261-4 78 [facility] iron saturation measurement (mass fraction)2019-10-18 12:40:00* Test Item Value Reference Range Interpretation Comments Percent Iron Saturation (test code = 2502-3) 21 15-50 [facility] transferrin measurement (mass/volume)2019-10-18 12:40:00* Test Item Value Reference Range Interpretation Comments Transferrin (test code = 3034-6) 159 174-364 [facility] ferritin measurement (mass/volume)2019-10-18 12:40:00* Test Item Value Reference Range Interpretation Comments Ferritin (test code = 2276-4) > 2000.00 21.81-274.66 [facility] indirect bilirubin measurement (mass/volume)2019-10-18 12:40:00* Test Item Value Reference Range Interpretation Comments Indirect Bilirubin (test code = 1971-1) 2.9 0.3-1.2 [facility] creatine kinase measurement (enzymatic activity/volume)2019-10-18 12:40:00* Test Item Value Reference Range Interpretation Comments Creatine Kinase (test code = 2157-6) 38 30-200 [facility] creatine kinase MB measurement (mass/volume)2019-10-18 12:40:00* Test Item Value Reference Range Interpretation Comments Creatine Kinase MB (test code = 78172-4) 1.20 0-5.0 [facility] HospitalTroponin I measurement by highly sensitive enzyme [id number] 12:40:00* Test Item Value Reference Range Interpretation Comments Troponin I (test code = 79334-4) 0.059 0-0.300 [facility] HospitalBlood cobalamin (vitamin B12) measurement (mass/volume)2019-10-18 12:40:00* Test Item Value Reference Range Interpretation Comments Vitamin B12 Level (test code = 68916-8) 401 213-816 [facility] folate measurement (mass/volume)2019-10-18 12:40:00* Test Item Value Reference Range Interpretation Comments Folate (test code = 2284-8) 9.5 7.0-15.4 [facility] HospitalGLUBED2020-03-14 20:09:00* Test Item Value Reference Range Interpretation Comments GLUBED (test code = GLUBED) 118 mg/dL 74-106 H Performed by certified electronic operator at [facility] ANTINUCLEAR ANTIBODIES [id number] 18:07:00* Test Item Value Reference Range Interpretation Comments BRIDGETT SCREEN (test code = ANASCR) Negative Negative Performed At: [facility] [id number] Kyle L MD Ph:[phone] REFAB [id number] 18:07:00* Test Item Value Reference Range Interpretation Comments AB MITOCHONDRIAL (test code = MITOCHAB) <20.0 Units 0.0-20.0 Negative 0.0 - 20.0 Equivocal 20.1 - 24.9 Positive >24.9Mitochondrial (M2) Antibodies are found in 90-96% ofpatients with primary biliary cirrhosis.Performed At: [address] [id number] Sanjai MD Ph:[phone] [id number] 11:29:00* Test Item Value Reference Range Interpretation Comments GLUBED (test code = GLUBED) 133 mg/dL 74-106 H Performed by certified electronic operator at [facility] [id number] 11:02:00* Test Item Value Reference Range Interpretation Comments GLUBED (test code = GLUBED) 146 mg/dL 74-106 H Performed by certified electronic operator at [facility] AB HIV 1 09:51:00* Test Item Value Reference Range Interpretation Comments AB HIV 1 2 (test code = KXR55WS) Nonreactive NonReactive It is recognized that currently available assays for thedetection of antibodies to HIV-1 and/or HIV-2 may notdetect all infected individuals. A negative test result doesnot exclude the possibility of exposure to or infection withHIV. HIV antibodies may be undetectable in some stages ofthe infection and in some clinical conditions. AB HEPATITIS B [id number] 07:12:00* Test Item Value Reference Range Interpretation Comments AB HEPATITIS B SURFACE (test code = HBSAB) Reactive () Non Reactive: Inconsistent with immunity, less than 10 mIU/mL Reactive: Consistent with immunity, greater than 9.9 mIU/mLPerformed At: [facility] [id number] Palencia MD Ph:[phone] HEPATITIS B CORE ANTIBODY,[id number] 07:12:00* Test Item Value Reference Range Interpretation Comments HEPATITIS B CORE ANTIBODY,TOT (test code = HBCAB) Negative Nega tive Performed At: [facility] [id number] Palencia MD Ph:[phone] [id number] 05:31:00* Test Item Value Reference Range Interpretation Comments HEMOGLOBIN (test code = HGB) 8.0 gram/dL 13.0-17.5 L [id number] 20:08:00* Test Item Value Reference Range Interpretation Comments GLUBED (test code = GLUBED) 135 mg/dL 74-106 H Performed by certified electronic operator at [facility] [id number] 17:42:00* Test Item Value Reference Range Interpretation Comments GLUBED (test code = GLUBED) 237 mg/dL 74-106 H Performed by certified electronic operator at [facility] BASIC METABOLIC [id number] 13:54:00* Test Item Value Reference Range Interpretation [...] CA) 8.7 mg/dL 8.5-10.1 N BASIC METABOLIC [id number] 13:49:00* Test Item Value Reference Range Interpretation [...] code = CA) mg/dL 8.5-10.1 CBC W/AUTO [id number] 12:42:00* Test Item Value Reference Range Interpretation [...] = MDIFF) NO, ONLY SCAN NEEDED DIFFERENTIAL [id number] 12:42:00* Test Item Value Reference Range Interpretation Comments STAIN ACCEPTABILITY (test code = STN ACCEPTABLE) STAIN ACCEPTABLE POLYCHROMASIA (test code = POLC) 1+ ANISOCYTOSIS (test code = ANISO) 3+ MACROCYTOSIS (test code = MACR) 3+ PLATELET ESTIMATE (test code = PLTEST) SLIGHTLY DECREASED PLATELET MORPHOLOGY (test code = PLTMORPH) NORMAL [id number] 12:13:00* Test Item Value Reference Range Interpretation Comments GLUBED (test code = GLUBED) 142 mg/dL 74-106 H Performed by certified electronic operator at [facility] CBC W/AUTO [id number] 11:55:00* Test Item Value Reference Range Interpretation [...] = MDIFF) NO, ONLY SCAN NEEDED DIFFERENTIAL [id number] 11:55:00* Test Item Value Reference Range Interpretation Comments STAIN ACCEPTABILITY (test code = STN ACCEPTABLE) CABOT RINGS (test code = CAB) MORPHOLOGY COMMENT (test code = MOC) PLATELET ESTIMATE (test code = PLTEST) PLATELET MORPHOLOGY (test code = PLTMORPH) CBC W/AUTO [id number] 11:55:00* Test Item Value Reference Range Interpretation [...] = MDIFF) NO, ONLY SCAN NEEDED DIFFERENTIAL [id number] 11:55:00* Test Item Value Reference Range Interpretation Comments STAIN ACCEPTABILITY (test code = STN ACCEPTABLE) CABOT RINGS (test code = CAB) MORPHOLOGY COMMENT (test code = MOC) PLATELET ESTIMATE (test code = PLTEST) PLATELET MORPHOLOGY (test code = PLTMORPH) CBC W/AUTO [id number] 11:55:00* Test Item Value Reference Range Interpretation [...] = MDIFF) NO, ONLY SCAN NEEDED DIFFERENTIAL [id number] 11:55:00* Test Item Value Reference Range Interpretation Comments STAIN ACCEPTABILITY (test code = STN ACCEPTABLE) MORPHOLOGY COMMENT (test code = MOC) PLATELET ESTIMATE (test code = PLTEST) PLATELET MORPHOLOGY (test code = PLTMORPH) CBC W/AUTO [id number] 11:55:00* Test Item Value Reference Range Interpretation [...] = MDIFF) NO, ONLY SCAN NEEDED DIFFERENTIAL [id number] 11:55:00* Test Item Value Reference Range Interpretation Comments STAIN ACCEPTABILITY (test code = STN ACCEPTABLE) CABOT RINGS (test code = CAB) MORPHOLOGY COMMENT (test code = MOC) PLATELET ESTIMATE (test code = PLTEST) PLATELET MORPHOLOGY (test code = PLTMORPH) CBC W/AUTO [id number] 07:58:00* Test Item Value Reference Range Interpretation [...] = MDIFF) NO, ONLY SCAN NEEDED DIFFERENTIAL [id number] 07:58:00* Test Item Value Reference Range Interpretation Comments STAIN ACCEPTABILITY (test code = STN ACCEPTABLE) STAIN ACCEPTABLE POLYCHROMASIA (test code = POLC) 1+ ANISOCYTOSIS (test code = ANISO) 3+ MACROCYTOSIS (test code = MACR) 3+ PLATELET ESTIMATE (test code = PLTEST) SLIGHTLY DECREASED PLATELET MORPHOLOGY (test code = PLTMORPH) NORMAL CBC W/AUTO [id number] 07:44:00* Test Item Value Reference Range Interpretation [...] = MDIFF) NO, ONLY SCAN NEEDED DIFFERENTIAL [id number] 07:44:00* Test Item Value Reference Range Interpretation Comments STAIN ACCEPTABILITY (test code = STN ACCEPTABLE) CABOT RINGS (test code = CAB) MORPHOLOGY COMMENT (test code = MOC) PLATELET ESTIMATE (test code = PLTEST) PLATELET MORPHOLOGY (test code = PLTMORPH) CBC W/AUTO [id number] 07:44:00* Test Item Value Reference Range Interpretation [...] = MDIFF) NO, ONLY SCAN NEEDED DIFFERENTIAL [id number] 07:44:00* Test Item Value Reference Range Interpretation Comments STAIN ACCEPTABILITY (test code = STN ACCEPTABLE) CABOT RINGS (test code = CAB) MORPHOLOGY COMMENT (test code = MOC) PLATELET ESTIMATE (test code = PLTEST) PLATELET MORPHOLOGY (test code = PLTMORPH) CBC W/AUTO [id number] 07:44:00* Test Item Value Reference Range Interpretation [...] = MDIFF) NO, ONLY SCAN NEEDED DIFFERENTIAL [id number] 07:44:00* Test Item Value Reference Range Interpretation Comments STAIN ACCEPTABILITY (test code = STN ACCEPTABLE) MORPHOLOGY COMMENT (test code = MOC) PLATELET ESTIMATE (test code = PLTEST) PLATELET MORPHOLOGY (test code = PLTMORPH) CBC W/AUTO [id number] 07:44:00* Test Item Value Reference Range Interpretation [...] = MDIFF) NO, ONLY SCAN NEEDED DIFFERENTIAL [id number] 07:44:00* Test Item Value Reference Range Interpretation Comments STAIN ACCEPTABILITY (test code = STN ACCEPTABLE) CABOT RINGS (test code = CAB) MORPHOLOGY COMMENT (test code = MOC) PLATELET ESTIMATE (test code = PLTEST) PLATELET MORPHOLOGY (test code = PLTMORPH) [id number] 07:34:00* Test Item Value Reference Range Interpretation Comments GLUBED (test code = GLUBED) 204 mg/dL 74-106 H Performed by certified electronic operator at [facility] [id number] 20:20:00* Test Item Value Reference Range Interpretation Comments GLUBED (test code = GLUBED) 234 mg/dL 74-106 H Performed by certified electronic operator at [facility] PROTHROMBIN [id number] 17:59:00* Test Item Value Reference Range Interpretation [...] (2.5-3.5) IS PATIENT ON ANTICOAGULANTS? NCBC W/O [id number] 17:49:00* Test Item Value Reference Range Interpretation [...] code = MPV) 12.2 fL 6.7-11.0 H [id number] 17:21:00* Test Item Value Reference Range Interpretation Comments GLUBED (test code = GLUBED) 146 mg/dL 74-106 H Performed by certified electronic operator at [facility] [id number] 12:20:00* Test Item Value Reference Range Interpretation Comments GLUBED (test code = GLUBED) 194 mg/dL 74-106 H Performed by certified electronic operator at [facility] ANTINUCLEAR ANTIBODIES [id number] 11:09:00* Test Item Value Reference Range Interpretation Comments BRIDGETT SCREEN (test code = ANASCR) Negative Negative Performed At: [facility] [id number] Kyle L MD Ph:[phone] REFAB [id number] 11:09:00* Test Item Value Reference Range Interpretation Comments AB MITOCHONDRIAL (test code = MITOCHAB) EIA <1.0 [id number] 08:13:00* Test Item Value Reference Range Interpretation Comments GLUBED (test code = GLUBED) 188 mg/dL 74-106 H Performed by certified electronic operator at [facility] ALPHA FETOPROTEIN TUMOR [id number] 08:10:00* Test Item Value Reference Range Interpretation Comments ALPHA FETOPROTEIN TUMOR MARKER (test code = AFPTM) 3.9 ng/mL 0.0 -8.3 [facility] Electrochemiluminescence Immunoassay(ECLIA)Values obtained with different assay methods or kits cannotbe used interchangeably. Results cannot be interpreted asabsolute evidence of the presence or absence of malignantdisease.This test is not interpretable in females.Performed At: [facility] [id number] Roe Palencia MD Ph:[phone] [id number] 08:07:00* Test Item Value Reference Range Interpretation Comments HEMOGLOBIN (test code = HGB) 8.3 gram/dL 13.0-17.5 L [id number] 20:38:00* Test Item Value Reference Range Interpretation Comments GLUBED (test code = GLUBED) 168 mg/dL 74-106 H Performed by certified electronic operator at [facility] [id number] 17:29:00* Test Item Value Reference Range Interpretation Comments GLUBED (test code = GLUBED) 192 mg/dL 74-106 H Performed by certified electronic operator at [facility] HGB [id number] 16:55:00* Test Item Value Reference Range Interpretation Comments HEMOGLOBIN (test code = HGB) 8.6 gram/dL 13.0-17.5 L RESULT VERIFIED BY REPEAT ANALYSIS HEMATOCRIT (test code = HCT) 25.4 % 42.0-52.0 L [id number] 13:43:00* Test Item Value Reference Range Interpretation Comments GLUBED (test code = GLUBED) 224 mg/dL 74-106 H Performed by certified electronic operator at [facility] ACUTE HEPATITIS [id number] 08:10:00* Test Item Value Reference Range Interpretation [...] with a HCV Nucleic Acid Amplification test ([id number]).Performed At: [facility] [address] [id number] Kyle L MD Ph:[phone] [id number] 08:02:00* Test Item Value Reference Range Interpretation Comments GLUBED (test code = GLUBED) 197 mg/dL 74-106 H Performed by certified electronic operator at [facility] AG HEPAT B [id number] 07:41:00* Test Item Value Reference Range Interpretation Comments AG HEPAT B SURF (test code = HBSAG) Nonreactive Index Nonreactive BASIC METABOLIC [id number] 03:15:00* Test Item Value Reference Range Interpretation [...] CA) 8.8 mg/dL 8.5-10.1 N HEPATIC FUNCTION [id number] 03:15:00* Test Item Value Reference Range Interpretation [...] due to change in reagent. CBC W/AUTO [id number] 02:51:00* Test Item Value Reference Range Interpretation Comments WHITE BLOOD CELL (test code = WBC) 5.2 K/mm3 4.5-12.5 N RED BLOOD CELL (test code = RBC) 2.04 mill/mm3 4.0-5.8 L HEMOGLOBIN (test code = HGB) 6.6 gram/dL 13.0-17.5 L HEMATOCRIT (test code = HCT) 19.9 % 42.0-52.0 LL Results called to [id number] by DENIJP1 10/09/19 0220Critical results verified and [...] = MDIFF) NO, ONLY SCAN NEEDED DIFFERENTIAL [id number] 02:51:00* Test Item Value Reference Range Interpretation [...] (test code = PLTMORPH) NORMAL BASIC METABOLIC [id number] 02:50:00* Test Item Value Reference Range Interpretation [...] code = CA) mg/dL 8.5-10.1 HEPATIC FUNCTION [id number] 02:50:00* Test Item Value Reference Range Interpretation [...] code = ALKP) IUnit/L 45-117 CBC W/AUTO [id number] 02:20:00* Test Item Value Reference Range Interpretation Comments WHITE BLOOD CELL (test code = WBC) 5.2 K/mm3 4.5-12.5 N RED BLOOD CELL (test code = RBC) 2.04 mill/mm3 4.0-5.8 L HEMOGLOBIN (test code = HGB) 6.6 gram/dL 13.0-17.5 L HEMATOCRIT (test code = HCT) 19.9 % 42.0-52.0 LL Results called to [id number] by DENIJP1 10/09/19 0220Critical results verified and [...] = MDIFF) NO, ONLY SCAN NEEDED DIFFERENTIAL [id number] 02:20:00* Test Item Value Reference Range Interpretation Comments STAIN ACCEPTABILITY (test code = STN ACCEPTABLE) CABOT RINGS (test code = CAB) MORPHOLOGY COMMENT (test code = MOC) PLATELET ESTIMATE (test code = PLTEST) PLATELET MORPHOLOGY (test code = PLTMORPH) CBC W/AUTO [id number] 02:20:00* Test Item Value Reference Range Interpretation Comments WHITE BLOOD CELL (test code = WBC) 5.2 K/mm3 4.5-12.5 N RED BLOOD CELL (test code = RBC) 2.04 mill/mm3 4.0-5.8 L HEMOGLOBIN (test code = HGB) 6.6 gram/dL 13.0-17.5 L HEMATOCRIT (test code = HCT) 19.9 % 42.0-52.0 LL Results called to [id number] by VERONICA1 10/09/19 0220Critical results verified and [...] = MDIFF) NO, ONLY SCAN NEEDED DIFFERENTIAL [id number] 02:20:00* Test Item Value Reference Range Interpretation Comments STAIN ACCEPTABILITY (test code = STN ACCEPTABLE) CABOT RINGS (test code = CAB) MORPHOLOGY COMMENT (test code = MOC) PLATELET ESTIMATE (test code = PLTEST) PLATELET MORPHOLOGY (test code = PLTMORPH) CBC W/AUTO [id number] 02:20:00* Test Item Value Reference Range Interpretation Comments WHITE BLOOD CELL (test code = WBC) 5.2 K/mm3 4.5-12.5 N RED BLOOD CELL (test code = RBC) 2.04 mill/mm3 4.0-5.8 L HEMOGLOBIN (test code = HGB) 6.6 gram/dL 13.0-17.5 L HEMATOCRIT (test code = HCT) 19.9 % 42.0-52.0 LL Results called to [id number] by LORENE.JP1 10/09/19 0220Critical results verified and [...] = MDIFF) NO, ONLY SCAN NEEDED DIFFERENTIAL [id number] 02:20:00* Test Item Value Reference Range Interpretation Comments STAIN ACCEPTABILITY (test code = STN ACCEPTABLE) MORPHOLOGY COMMENT (test code = MOC) PLATELET ESTIMATE (test code = PLTEST) PLATELET MORPHOLOGY (test code = PLTMORPH) CBC W/AUTO [id number] 02:20:00* Test Item Value Reference Range Interpretation Comments WHITE BLOOD CELL (test code = WBC) 5.2 K/mm3 4.5-12.5 N RED BLOOD CELL (test code = RBC) 2.04 mill/mm3 4.0-5.8 L HEMOGLOBIN (test code = HGB) 6.6 gram/dL 13.0-17.5 L HEMATOCRIT (test code = HCT) 19.9 % 42.0-52.0 LL Results called to [id number] by LORENE.JP1 10/09/19 0220Critical results verified and [...] = MDIFF) NO, ONLY SCAN NEEDED DIFFERENTIAL [id number] 02:20:00* Test Item Value Reference Range Interpretation Comments STAIN ACCEPTABILITY (test code = STN ACCEPTABLE) CABOT RINGS (test code = CAB) MORPHOLOGY COMMENT (test code = MOC) PLATELET ESTIMATE (test code = PLTEST) PLATELET MORPHOLOGY (test code = PLTMORPH) [id number] 20:19:00* Test Item Value Reference Range Interpretation Comments GLUBED (test code = GLUBED) 252 mg/dL 74-106 H Performed by certified electronic operator at [facility] [id number] 16:04:00* Test Item Value Reference Range Interpretation Comments GLUBED (test code = GLUBED) 216 mg/dL 74-106 H Performed by certified electronic operator at [facility] HGB [id number] 14:10:00* Test Item Value Reference Range Interpretation Comments HEMOGLOBIN (test code = HGB) 6.8 gram/dL 13.0-17.5 L HEMATOCRIT (test code = HCT) 20.7 % 42.0-52.0 LL Results called to [id number] by [employer].JQ 10/08/19 1410Critical results verified and read back by Nurse? Y [id number] 11:49:00* Test Item Value Reference Range Interpretation Comments GLUBED (test code = GLUBED) 197 mg/dL 74-106 H Performed by certified electronic operator at [facility] [id number] 08:14:00* Test Item Value Reference Range Interpretation Comments GLUBED (test code = GLUBED) 222 mg/dL 74-106 H Performed by certified electronic operator at [facility] CBC W/AUTO [id number] 08:14:00* Test Item Value Reference Range Interpretation Comments WHITE BLOOD CELL (test code = WBC) 5.4 K/mm3 4.5-12.5 N RED BLOOD CELL (test code = RBC) 2.02 mill/mm3 4.0-5.8 L HEMOGLOBIN (test code = HGB) 6.6 gram/dL 13.0-17.5 L HEMATOCRIT (test code = HCT) 19.4 % 42.0-52.0 LL Results called to [id number] by V.LAB.JQ 10/08/19 0701Critical results verified and [...] = MDIFF) NO, ONLY SCAN NEEDED DIFFERENTIAL [id number] 08:14:00* Test Item Value Reference Range Interpretation [...] (test code = PLTMORPH) NORMAL BASIC METABOLIC [id number] 07:45:00* Test Item Value Reference Range Interpretation [...] CA) 8.4 mg/dL 8.5-10.1 L HEPATIC FUNCTION [id number] 07:45:00* Test Item Value Reference Range Interpretation [...] due to change in reagent. BASIC METABOLIC [id number] 07:37:00* Test Item Value Reference Range Interpretation [...] code = CA) mg/dL 8.5-10.1 HEPATIC FUNCTION [id number] 07:37:00* Test Item Value Reference Range Interpretation [...] code = ALKP) IUnit/L 45-117 CBC W/AUTO [id number] 07:01:00* Test Item Value Reference Range Interpretation Comments WHITE BLOOD CELL (test code = WBC) 5.4 K/mm3 4.5-12.5 N RED BLOOD CELL (test code = RBC) 2.02 mill/mm3 4.0-5.8 L HEMOGLOBIN (test code = HGB) 6.6 gram/dL 13.0-17.5 L HEMATOCRIT (test code = HCT) 19.4 % 42.0-52.0 LL Results called to [id number] by LESLIE 10/08/19 0701Critical results verified and [...] = MDIFF) NO, ONLY SCAN NEEDED DIFFERENTIAL [id number] 07:01:00* Test Item Value Reference Range Interpretation Comments STAIN ACCEPTABILITY (test code = STN ACCEPTABLE) CABOT RINGS (test code = CAB) MORPHOLOGY COMMENT (test code = MOC) PLATELET ESTIMATE (test code = PLTEST) PLATELET MORPHOLOGY (test code = PLTMORPH) CBC W/AUTO [id number] 07:01:00* Test Item Value Reference Range Interpretation Comments WHITE BLOOD CELL (test code = WBC) 5.4 K/mm3 4.5-12.5 N RED BLOOD CELL (test code = RBC) 2.02 mill/mm3 4.0-5.8 L HEMOGLOBIN (test code = HGB) 6.6 gram/dL 13.0-17.5 L HEMATOCRIT (test code = HCT) 19.4 % 42.0-52.0 LL Results called to [id number] by V.LAB.TYSON 10/08/19 0701Critical results verified and read back [...] = MDIFF) NO, ONLY SCAN NEEDED DIFFERENTIAL [id number] 07:01:00* Test Item Value Reference Range Interpretation Comments STAIN ACCEPTABILITY (test code = STN ACCEPTABLE) CABOT RINGS (test code = CAB) MORPHOLOGY COMMENT (test code = MOC) PLATELET ESTIMATE (test code = PLTEST) PLATELET MORPHOLOGY (test code = PLTMORPH) CBC W/AUTO [id number] 07:01:00* Test Item Value Reference Range Interpretation Comments WHITE BLOOD CELL (test code = WBC) 5.4 K/mm3 4.5-12.5 N RED BLOOD CELL (test code = RBC) 2.02 mill/mm3 4.0-5.8 L HEMOGLOBIN (test code = HGB) 6.6 gram/dL 13.0-17.5 L HEMATOCRIT (test code = HCT) 19.4 % 42.0-52.0 LL Results called to [id number] by LESLIE 10/08/19 0701Critical results verified and [...] = MDIFF) NO, ONLY SCAN NEEDED DIFFERENTIAL [id number] 07:01:00* Test Item Value Reference Range Interpretation Comments STAIN ACCEPTABILITY (test code = STN ACCEPTABLE) MORPHOLOGY COMMENT (test code = MOC) PLATELET ESTIMATE (test code = PLTEST) PLATELET MORPHOLOGY (test code = PLTMORPH) CBC W/AUTO [id number] 07:01:00* Test Item Value Reference Range Interpretation Comments WHITE BLOOD CELL (test code = WBC) 5.4 K/mm3 4.5-12.5 N RED BLOOD CELL (test code = RBC) 2.02 mill/mm3 4.0-5.8 L HEMOGLOBIN (test code = HGB) 6.6 gram/dL 13.0-17.5 L HEMATOCRIT (test code = HCT) 19.4 % 42.0-52.0 LL Results called to [id number] by LESLIE 10/08/19 0701Critical results verified and [...] = MDIFF) NO, ONLY SCAN NEEDED DIFFERENTIAL [id number] 07:01:00* Test Item Value Reference Range Interpretation Comments STAIN ACCEPTABILITY (test code = STN ACCEPTABLE) CABOT RINGS (test code = CAB) MORPHOLOGY COMMENT (test code = MOC) PLATELET ESTIMATE (test code = PLTEST) PLATELET MORPHOLOGY (test code = PLTMORPH) [id number] 23:25:00* Test Item Value Reference Range Interpretation Comments GLUBED (test code = GLUBED) 187 mg/dL 74-106 H Performed by certified electronic operator at [facility] - US ABDOMEN [id number] 20:26:00 Name: VIOLETTE LAMB [facility] : 1965 Age/S: 54 / M [address] Unit #: [id number] Loc: [place] [address] Phys: Pawel Salvador MD Acct: [id number] Dis Date: Status: ADM IN PHONE #: [phone] Exam Date: 10/07/20192003 FAX #: [phone] Reason: jaundice EXAMS: CPT CODE: [id number] US ABDOMEN COMPLETE 71696 REASON FOR EXAM: jaundice EXAM ORDER DATE: 10/07/2019 7:23 PM Ordering: Pawel Salvador MD Attending:Pawel Salvador MD Location:[facility] PROCEDURE: - US ABDOMEN COMPLETE FINDINGS: The [...] ogist: Francisco Xie Trnscb Date/Time: 10/07/2019 (2025) [email or web address] Orig Print D/T: S: 10/07/2019 (2028) Probe: PAGE 1 Signed Re port - XR CHEST 1 [id number] 20:24:00 FAX: Pawel Beasley MD [place]: B St: [facility] FAX: Adin Kim MD [phone] Name: VIOLETTE LAMB [facility] : 1965 Age/S: 54/M [address] [facility] Unit #: [id number] Loc: [place] [address] Phys: Pawel Salvador MD Acct: [id number] Dis Date: Status: ADM IN PHONE #: [phone] Exam Date: 10/07/20192010 FAX #: [phone] Reason: h/o chf EXAMS: CPT CODE: [id number] XR CHEST 1 V 38775 REASON FOR EXAM: h/o chf EXAM ORDER [...] echnologist: Thao Shelby RT(R); Ethan Harvey RT(R Trngard Date /Time/By: 10/07/2019 (2023) : By: KassiVTL [...] FESAT) 39.55 % 13-45 N HEPATIC FUNCTION [id number] 19:19:00* Test Item Value Reference Range Interpretation [...] reference range due to change in reagent. [id number] 19:19:00* Test Item Value Reference Range Interpretation Comments LIPASE (test code = LIP) 166 U/L 73.0-393.0 N [id number] 19:19:00* Test Item Value Reference Range Interpretation Comments TROPONIN-I (test code = TROPI) 0.030 ng/mL 0-0.045 N BASIC METABOLIC [id number] 18:22:00* Test Item Value Reference Range Interpretation [...] CA) 8.8 mg/dL 8.5-10.1 N BASIC METABOLIC [id number] 18:18:00* Test Item Value Reference Range Interpretation [...] (test code = CA) mg/dL 8.5-10.1 PROTHROMBIN [id number] 18:15:00* Test Item Value Reference Range Interpretation [...] (2.5-3.5) IS PATIENT ON ANTICOAGULANTS? NTHROMBOPLASTIN TIME [id number] 18:15:00* Test Item Value Reference Range Interpretation Comments THROMBOPLASTIN TIME PARTIAL (test code = PTT) 34.2 seconds 25.0-36. 5 N IS PATIENT ON ANTICOAGULANTS? NCBC W/O [id number] 18:07:00* Test Item Value Reference Range Interpretation Comments WHITE BLOOD CELL (test code = WBC) 4.6 K/mm3 4.5-12.5 N RED BLOOD CELL (test code = RBC) 2.22 mill/mm3 4.0-5.8 L HEMOGLOBIN (test code = HGB) 7.2 gram/dL 13.0-17.5 L HEMATOCRIT (test code = HCT) 20.8 % 42.0-52.0 LL Results called to [id number] by MICHELET 10/07/19 1804Critical results verified and [...] code = MPV) 12.1 fL 6.7-11.0 H [id number] 09:59:00* Test Item Value Reference Range Interpretation Comments GLUBED (test code = GLUBED) 100 mg/dL 74-106 N Performed by certified electronic operator at [facility] CBC W/AUTO [id number] 19:58:00* Test Item Value Reference Range Interpretation [...] = MDIFF) NO, ONLY SCAN NEEDED DIFFERENTIAL [id number] 19:58:00* Test Item Value Reference Range Interpretation Comments STAIN ACCEPTABILITY (test code = STN ACCEPTABLE) STAIN ACCEPTABLE ANISOCYTOSIS (test code = ANISO) 1+ PLATELET ESTIMATE (test code = PLTEST) DECREASED PLATELET MORPHOLOGY (test code = PLTMORPH) NORMAL COMPREHENSIVE METABOLIC [id number] 18:51:00* Test Item Value Reference Range Interpretation [...] LDL result is a direct measurement.========= PROTHROMBIN [id number] 18:47:00* Test Item Value Reference Range Interpretation [...] Mechanical prosthetic heart valves (2.5-3.5) THROMBOPLASTIN TIME [id number] 18:47:00* Test Item Value Reference Range Interpretation Comments THROMBOPLASTIN TIME PARTIAL (test code = PTT) 35.7 seconds 25.0-36. 5 N COMPREHENSIVE METABOLIC [id number] 18:43:00* Test Item Value Reference Range Interpretation [...] result is a direct measurement.========= CBC W/AUTO [id number] 18:39:00* Test Item Value Reference Range Interpretation [...] = MDIFF) NO, ONLY SCAN NEEDED DIFFERENTIAL [id number] 18:39:00* Test Item Value Reference Range Interpretation Comments STAIN ACCEPTABILITY (test code = STN ACCEPTABLE) CABOT RINGS (test code = CAB) MORPHOLOGY COMMENT (test code = MOC) PLATELET ESTIMATE (test code = PLTEST) PLATELET MORPHOLOGY (test code = PLTMORPH) CBC W/AUTO [id number] 18:39:00* Test Item Value Reference Range Interpretation [...] = MDIFF) NO, ONLY SCAN NEEDED DIFFERENTIAL [id number] 18:39:00* Test Item Value Reference Range Interpretation Comments STAIN ACCEPTABILITY (test code = STN ACCEPTABLE) MORPHOLOGY COMMENT (test code = MOC) PLATELET ESTIMATE (test code = PLTEST) PLATELET MORPHOLOGY (test code = PLTMORPH) CBC W/AUTO [id number] 18:39:00* Test Item Value Reference Range Interpretation [...] = MDIFF) NO, ONLY SCAN NEEDED DIFFERENTIAL [id number] 18:39:00* Test Item Value Reference Range Interpretation Comments STAIN ACCEPTABILITY (test code = STN ACCEPTABLE) MORPHOLOGY COMMENT (test code = MOC) PLATELET ESTIMATE (test code = PLTEST) PLATELET MORPHOLOGY (test code = PLTMORPH) CBC W/AUTO [id number] 18:39:00* Test Item Value Reference Range Interpretation [...] = MDIFF) NO, ONLY SCAN NEEDED DIFFERENTIAL [id number] 18:39:00* Test Item Value Reference Range Interpretation Comments STAIN ACCEPTABILITY (test code = STN ACCEPTABLE) CABOT RINGS (test code = CAB) MORPHOLOGY COMMENT (test code = MOC) PLATELET ESTIMATE (test code = PLTEST) PLATELET MORPHOLOGY (test code = PLTMORPH) COMPREHENSIVE METABOLIC [id number] 18:28:00* Test Item Value Reference Range Interpretation [...] (test code = LDL) mg/dL 100-129 Bedside Qkcwqzu4854-51-71 07:27:00* Test Item Value Reference Range Interpretation Comments Bedside Glucose (test code = 55645-6) 111 70-120 Meter ID: [id number] [facility] [place] B Surface Antibody, Aithb6217-00-90 10:55:00* Test Item Value Reference Range Interpretation Comments Hepatitis B Surface Antibody, Quant (test code = 5194-6) <3.0 Reference Range: Immunity>9.9 mIU/mLStatus of Immunity Anti-HBs Level Inconsistent with Immunity 0.0 - 9.9Consistent with Immunity >9.9[facility] Be Yigllbn0482-45-79 10:55:00* Test Item Value Reference Range Interpretation Comments Hepatitis Be Antigen (test code = 38289-4) Negative [facility] B Core Total Ftucibjk0554-71-70 10:55:00* Test Item Value Reference Range Interpretation Comments Hepatitis B Core Total Antibody (test code = 13649-1) Negative [facility] B Core IgM Wcycfxzl0763-31-11 10:55:00* Test Item Value Reference Range Interpretation Comments Hepatitis B Core IgM Antibody (test code = 28092-6) Negative [facility] B Surface Antibody, Quant 2019-07-16 10:55:00* Test Item Value Reference Range Interpretation Comments Hepatitis B Surface Antibody, Quant (test code = 5194-6) <3.0 Reference Range: Immunity>9.9 mIU/mLStatus of Immunity Anti-HBs Level Inconsistent with Immunity 0.0 - 9.9Consistent with Immunity >9.9[facility] Be Rhcbvzt7470-03-90 10:55:00* Test Item Value Reference Range Interpretation Comments Hepatitis Be Antigen (test code = 75903-8) Negative [facility] B Surface Elvoltf6138-30-66 08:44:00* Test Item Value Reference Range Interpretation Comments Hepatitis B Surface Antigen (test code = 5196-1) Negative Negat [place] [facility] HospitalHep[facility] Be Cfoikywt5253-02-91 22:26:00 * Test Item Value Reference Range Interpretation Comments Hepatitis Be Antibody (test code = 33745-9) Negative Negative Performed at: [address] [id number] [employer] Cementer: Dasha Lr MD, Phone: [phone] [facility] Hospitaltool Occult Eqxmt1950-46-45 09:51:00* Test Item Value Reference Range Interpretation Comments Stool Occult Blood (test code = 2335-8) NEGATIVE NEGATIVE [facility] Occult Chiis0994-69-49 09:51:00* Test Item Value Reference Range Interpretation Comments Stool Occult Blood (test code = 2335-8) NEGATIVE NEGATIVE [facility] Hospitalodium Bllhg8649-32-30 06:41:00* Test Item Value Reference Range Interpretation Comments Sodium Level (test code = 2951-2) 136 136-145 [facility] HospitalPotassium Gznba1303-53-13 06:41:00* Test Item Value Reference Range Interpretation Comments Potassium Level (test code = 2823-3) 4.5 3.5-5.1 [facility] HospitalChloride Hecen1614-51-74 06:41:00* Test Item Value Reference Range Interpretation Comments Chloride Level (test code = 2075-0) 102 98-107 [facility] HospitalCarbon Dioxide Pofrn4502-28-00 06:41:00* Test Item Value Reference Range Interpretation Comments Carbon Dioxide Level (test code = 2028-9) 23 22-29 [facility] HospitalAnion Llb1016-68-98 06:41:00* Test Item Value Reference Range Interpretation Comments Anion Gap (test code = 70603-2) 15.5 8-16 [facility] HospitalBlood Urea Xczurfpg8305-25-52 06:41:00* Test Item Value Reference Range Interpretation Comments Blood Urea Nitrogen (test code = 3094-0) 53 7-26 H [facility] HospitalCreatinine2019-12-16 06:41:00* Test Item Value Reference Range Interpretation Comments Creatinine (test code = 2160-0) 4.01 0.72-1.25 H [facility] HospitalBUN/Creatinine Wwvnt7254-47-62 06:41:00* Test Item Value Reference Range Interpretation Comments BUN/Creatinine Ratio (test code = 3097-3) 13 6-25 [facility] HospitalEstimat Glomerular Filtration Rate 2019-07-15 06:41:00* Test Item Value Reference Range Interpretation Comments Estimat Glomerular Filtration Rate (test code = 815528503) 16 >60 L Ranges were taken from the National Kidney Disease Education Program and the [facility] literature.Reference ranges:60 or greater: Xztcue30-40 ( for 3 consecutive months): Chronic kidney disease 15 or less: Kidney failureResolute Health HospitalGlucose Pjyqx3958-13-91 06:41:00* Test Item Value Reference Range Interpretation Comments Glucose Level (test code = VFJ0550) 184 74-118 H [facility] HospitalCalcium Ckjrn1738-57-40 06:41:00* Test Item Value Reference Range Interpretation Comments Calcium Level (test code = 65534-9) 8.4 8.4-10.2 [facility] Hospitalto gastrointestinal hemoglobin zoribejia2633-93-49 05:30:00* Test Item Value Reference Range Interpretation Comments Stool Occult Blood (test code = 2335-8) NEGATIVE NEGATIVE [facility] gastrointestinal hemoglobin mwvkclrgo3886-85-39 05:30:00* Test Item Value Reference Range Interpretation Comments Stool Occult Blood (test code = 2335-8) NEGATIVE NEGATIVE [facility] gastrointestinal hemoglobin slqylibba3927-47-76 05:30:00* Test Item Value Reference Range Interpretation Comments Stool Occult Blood (test code = 2335-8) NEGATIVE NEGATIVE [facility] HospitalWhite Blood Cszdv8766-84-16 08:59:00* Test Item Value Reference Range Interpretation Comments White Blood Count (test code = 6690-2) 4.18 4.8-10.8 L [facility] HospitalRed Blood Wcsuy5288-96-11 08:59:00* Test Item Value Reference Range Interpretation Comments Red Blood Count (test code = 789-8) 2.65 4.3-5.7 L [facility] HospitalHemoglobin2019-12-15 08:59:00* Test Item Value Reference Range Interpretation Comments Hemoglobin (test code = 32971-6) 8.2 14.0-18.0 L [facility] HospitalHematocrit2019-12-15 08:59:00* Test Item Value Reference Range Interpretation Comments Hematocrit (test code = 4544-3) 26.0 38.2-49.6 L [facility] HospitalMean Corpuscular Irfiam6388-67-46 08:59:00* Test Item Value Reference Range Interpretation Comments Mean Corpuscular Volume (test code = 787-2) 98.1 81-99 [facility] HospitalMean Corpuscular Plswzdfreo9341-69-58 08:59:00* Test Item Value Reference Range Interpretation Comments Mean Corpuscular Hemoglobin (test code = 785-6) 30.9 28-32 [facility] HospitalMean Corpuscular Hemoglobin Concent 2019-07-14 08:59:00* Test Item Value Reference Range Interpretation Comments Mean Corpuscular Hemoglobin Concent (test code = 786-4) 31.5 31-35 [facility] HospitalRed Cell Distribution Ckamz7303-34-38 08:59:00* Test Item Value Reference Range Interpretation Comments Red Cell Distribution Width (test code = 75359-7) 18.4 11.7 -14.4 H [facility] HospitalPlatelet Muims1257-32-08 08:59:00* Test Item Value Reference Range Interpretation Comments Platelet Count (test code = 777-3) 90 140-360 L [facility] HospitalNeutrophils (%) (Auto)2019-07-14 08:59:00 * Test Item Value Reference Range Interpretation Comments Neutrophils (%) (Auto) (test code = 22816-4) 72.3 38.7-80.0 [facility] HospitalLymphocytes (%) (Auto)2019-07-14 08:59:00 * Test Item Value Reference Range Interpretation Comments Lymphocytes (%) (Auto) (test code = 736-9) 12.2 18.0-39.1 L [facility] HospitalMonocytes (%) (Auto)2019-07-14 08:59:00* Test Item Value Reference Range Interpretation Comments Monocytes (%) (Auto) (test code = 5905-5) 10.3 4.4-11.3 [facility] HospitalEosinophils (%) (Auto)2019-07-14 08:59:00 * Test Item Value Reference Range Interpretation Comments Eosinophils (%) (Auto) (test code = 713-8) 4.5 0.0-6.0 [facility] HospitalBasophils (%) (Auto)2019-07-14 08:59:00* Test Item Value Reference Range Interpretation Comments Basophils (%) (Auto) (test code = 706-2) 0.5 0.0-1.0 [facility] HospitalIM GRANULOCYTES %2019-07-14 08:59:00* Test Item Value Reference Range Interpretation Comments IM GRANULOCYTES % (test code = IM GRANULOCYTES %) 0.2 0.0- 1.0 [facility] HospitalNeutrophils # (Auto)2019-07-14 08:59:00* Test Item Value Reference Range Interpretation Comments Neutrophils # (Auto) (test code = 751-8) 3.0 2.1-6.9 [facility] HospitalLymphocytes # (Auto)2019-07-14 08:59:00* Test Item Value Reference Range Interpretation Comments Lymphocytes # (Auto) (test code = 52293-0) 0.5 1.0-3.2 L [facility] HospitalMonocytes # (Auto)2019-07-14 08:59:00* Test Item Value Reference Range Interpretation Comments Monocytes # (Auto) (test code = 742-7) 0.4 0.2-0.8 [facility] HospitalEosinophils # (Auto)2019-07-14 08:59:00* Test Item Value Reference Range Interpretation Comments Eosinophils # (Auto) (test code = 711-2) 0.2 0.0-0.4 [facility] HospitalBasophils # (Auto)2019-07-14 08:59:00* Test Item Value Reference Range Interpretation Comments Basophils # (Auto) (test code = 704-7) 0.0 0.0-0.1 [facility] HospitalAbsolute Immature Granulocyte (auto 2019-07-14 08:59:00* Test Item Value Reference Range Interpretation Comments Absolute Immature Granulocyte (auto (rupinder t code = Absolute Immature Granulocyte (auto) 0.01 0-0.1 [facility] HospitalFerritin2019-12-14 09:20:00* Test Item Value Reference Range Interpretation Comments Ferritin (test code = 2276-4) 225.81 21.81-274.66 [facility] HospitalDifferential Total Cells Counted 2019-07-13 08:32:00* Test Item Value Reference Range Interpretation Comments Differential Total Cells Counted (test code = Differen tial Total Cells Counted) 100 [facility] HospitalNeutrophils % (Manual)2019-07-13 08:32:00 * Test Item Value Reference Range Interpretation Comments Neutrophils % (Manual) (test code = 55337-6) 80 40-74 H [facility] HospitalBand Neutrophils %2019-07-13 08:32:00* Test Item Value Reference Range Interpretation Comments Band Neutrophils % (test code = 764-1) 1 [facility] HospitalLymphocytes % (Manual)2019-07-13 08:32:00 * Test Item Value Reference Range Interpretation Comments Lymphocytes % (Manual) (test code = 737-7) 12 19-48 L [facility] HospitalMonocytes % (Manual)2019-07-13 08:32:00* Test Item Value Reference Range Interpretation Comments Monocytes % (Manual) (test code = 744-3) 5 3.4-9.0 [facility] HospitalEosinophils % (Manual)2019-07-13 08:32:00 * Test Item Value Reference Range Interpretation Comments Eosinophils % (Manual) (test code = 714-6) 2 0-7 [facility] HospitalPlatelet Vhexsjjz8467-51-57 08:32:00* Test Item Value Reference Range Interpretation Comments Platelet Estimate (test code = 86960-5) MODERATELY DECREASED [facility] HospitalPlatelet Morphology Oogylvm1047-84-16 08:32:00* Test Item Value Reference Range Interpretation Comments Platelet Morphology Comment (test code = 54655-2) NORMAL [facility] HospitalRed Cell Morphology Nkbqxph4313-99-14 08:32:00* Test Item Value Reference Range Interpretation Comments Red Cell Morphology Comment (test code = 6742-1) NORMAL [facility] HospitalBand Neutrophils %2019-07-13 08:32:00* Test Item Value Reference Range Interpretation Comments Band Neutrophils % (test code = 764-1) 1 [facility] HospitalIron Afcyl9483-18-28 06:35:00* Test Item Value Reference Range Interpretation Comments Iron Level (test code = 2498-4) 37 65-175 L [facility] HospitalTotal Iron Binding Gpwnhjhk9068-26-06 06:35:00* Test Item Value Reference Range Interpretation Comments Total Iron Binding Capacity (test code = 2500-7) 246 261-4 78 L [facility] HospitalPercent Iron Eivjyutmfi8191-24-55 06:35:00* Test Item Value Reference Range Interpretation Comments Percent Iron Saturation (test code = 2502-3) 15 15-50 [facility] HospitalTransferrin2019-12-14 06:35:00* Test Item Value Reference Range Interpretation Comments Transferrin (test code = 3034-6) 176 174-364 [facility] HospitalHemoglobin A1c Whulfmh2673-53-65 06:33:00 * Test Item Value Reference Range Interpretation Comments Hemoglobin A1c Percent (test code = Hemoglobin A1c Percent) 6.7 4.0-7.0 [facility] HospitalHemoglobin A1c Lriasct3677-24-89 06:33:00 * Test Item Value Reference Range Interpretation Comments Hemoglobin A1c Percent (test code = Hemoglobin A1c Percent) 6.7 4.0-7.0 [facility] HospitalManual blood band neutrophils form/100 fvzjileohp6381-19-30 04:15:00* Test Item Value Reference Range Interpretation Comments Band Neutrophils % (test code = 764-1) 1 [facility] HospitalFluoroscopic procedure less than one hour dqdlgqsc8477-16-79 04:15:00* Test Item Value Reference Range Interpretation Comments Hemoglobin A1c Percent (test code = Hemoglobin A1c Percent) 6.7 4.0-7.0 [facility] HospitalManual blood band neutrophils form/100 erjxhqbrxz3995-36-14 04:15:00* Test Item Value Reference Range Interpretation Comments Band Neutrophils % (test code = 764-1) 1 [facility] HospitalFluoroscopic procedure less than one hour hsvmtgvq8201-20-79 04:15:00* Test Item Value Reference Range Interpretation Comments Hemoglobin A1c Percent (test code = Hemoglobin A1c Percent) 6.7 4.0-7.0 [facility] HospitalManual blood band neutrophils form/100 iabmqlpahc6603-36-21 04:15:00* Test Item Value Reference Range Interpretation Comments Band Neutrophils % (test code = 764-1) 1 [facility] HospitalFluoroscopic procedure less than one hour ammmyksf0838-21-15 04:15:00* Test Item Value Reference Range Interpretation Comments Hemoglobin A1c Percent (test code = Hemoglobin A1c Percent) 6.7 4.0-7.0 [facility] HospitalCT ABDOMEN/PELVIS DT2998-62-43 15:37:00 [place] [address] Patient Name: DIGNA LAMB MR #: [id number] : 1965 Age/Sex: 54/M Req #: [id number] Adm Physician: CINDY ALVAREZ MD Ordered by: CINDY ALVAREZ MD Report #: [id number] Location: [facility] Room/Bed: [facility] Procedure: 1213-[address]/CT ABDOMEN/PELVIS WO Exam Date: 07/12/19 Exam T ksenia: 1444 REPORT STATUS: Signed CT of the chest, abdomen, and pelvis History: Shortness of breath, pain, an emia Comparison: None available. Technique: Multidetector CT scanning of the est, abdomen and pelvis was performed from [...] PM D ictated By: CORY CAPUTO MD 49 COPY TO: CINDY ALVAREZ MD CT CHEST WN8767-35-24 15:37:00 [place] [address] Patient Name: VIOLETTE LAMB MR #: [id number] : 1965 Age/Sex: 54/M Req #: [id number] Adm Physician: CINDY ALVAREZ MD Ordered by: CINDY ALVAREZ MD Report #: [id number] Location: [facility] Room/Bed: [facility] Procedure: 1213-[address]/CT CHEST WO Exam [...] PM Dictated B y: CORY CAPUTO MD 6207 COPY TO: CINDY ALVAREZ MD Vitamin B12 Awmfn2019-40-62 10:47:00* Test Item Value Reference Range Interpretation Comments Vitamin B12 Level (test code = 05298-5) 520 586-416 [facility] HospitalThyroid Stimulating Hormone (TSH) 2019-07-12 10:29:00* Test Item Value Reference Range Interpretation Comments Thyroid Stimulating Hormone (TSH) (test code = 53159-0) 1.875 0.350-4.940 [facility] HospitalThyroid Stimulating Hormone (TSH) 2019-07-12 10:29:00* Test Item Value Reference Range Interpretation Comments Thyroid Stimulating Hormone (TSH) (test code = 76383-8) 1.875 0.350-4.940 [facility] Hospitalerum or plasma thyrotropin measurement by detection limit <= 0.005 miu/l (units/volume)2019-07-12 04:15:00* Test Item Value Reference Range Interpretation Comments Thyroid Stimulating Hormone (TSH) (test code = 15145-9) 1.875 0.350-4.940 [facility] Hospitalerum or plasma thyrotropin measurement by detection limit <= 0.005 miu/l (units/volume)2019-07-12 04:15:00* Test Item Value Reference Range Interpretation Comments Thyroid Stimulating Hormone (TSH) (test code = 12460-7) 1.875 0.350-4.940 [facility] Hospitalerum or plasma thyrotropin measurement by detection limit <= 0.005 miu/l (units/volume)2019-07-12 04:15:00* Test Item Value Reference Range Interpretation Comments Thyroid Stimulating Hormone (TSH) (test code = 42406-4) 1.875 0.350-4.940 [facility] HospitalTotal Yrzzbuvme7092-04-17 21:11:00* Test Item Value Reference Range Interpretation Comments Total Bilirubin (test code = 1975-2) 1.7 0.2-1.2 H [facility] HospitalDirect Fntiwdjzu6411-58-49 21:11:00* Test Item Value Reference Range Interpretation Comments Direct Bilirubin (test code = 28385-9) 1.4 0.0-0.5 H [facility] HospitalAspartate Amino Transf (AST/SGOT) 2019-07-11 21:11:00* Test Item Value Reference Range Interpretation Comments Aspartate Amino Transf (AST/SGOT) (test code = Aspartate Amino Transf (AST/SGOT)) 28 5-34 [facility] HospitalAlanine Aminotransferase (ALT/SGPT) 2019-07-11 21:11:00* Test Item Value Reference Range Interpretation Comments Alanine Aminotransferase (ALT/SGPT) (test code = 1742-6) 50 0-55 [facility] HospitalTotal Plscgcs0609-75-66 21:11:00* Test Item Value Reference Range Interpretation Comments Total Protein (test code = 2885-2) 6.5 6.5-8.1 [facility] HospitalAlbumin[facility] 21:11:00* Test Item Value Reference Range Interpretation Comments Albumin (test code = 1751-7) 2.7 3.5-5.0 L [facility] HospitalAlkaline Ufnltceuvmv7118-28-41 21:11:00* Test Item Value Reference Range Interpretation Comments Alkaline Phosphatase (test code = 6768-6) 714 40-150 H [facility] hepatitis B virus surface antibody assay by radioimmunoassay (units/volume)2019-07-11 19:36:00* Test Item Value Reference Range Interpretation Comments Hepatitis B Surface Antibody, Quant (test code = 5194-6) <3.0 Reference Range: Immunity>9.9 mIU/mLStatus of Immunity Anti-HBs Level Inconsistent with Immunity 0.0 - 9.9Consistent with Immunity >9.9[facility] virus e antigen detection by enzyme immunoassay 2019-07-11 19:36:00* Test Item Value Reference Range Interpretation Comments Hepatitis Be Antigen (test code = 36693-4) Negative [facility] B virus surface antibody assay by radioimmunoassay (units/volume)2019-07-11 19:36:00* Test Item Value Reference Range Interpretation Comments Hepatitis B Surface Antibody, Quant (test code = 5194-6) <3.0 Reference Range: Immunity>9.9 mIU/mLStatus of Immunity Anti-HBs Level Inconsistent with Immunity 0.0 - 9.9Consistent with Immunity >9.9[facility] hepatitis B virus e antigen detection by enzyme immunoassay 2019-07-11 19:36:00* Test Item Value Reference Range Interpretation Comments Hepatitis Be Antigen (test code = 24443-2) Negative [facility] hepatitis B virus surface antibody assay by radioimmunoassay (units/volume)2019-07-11 19:36:00* Test Item Value Reference Range Interpretation Comments Hepatitis B Surface Antibody, Quant (test code = 5194-6) <3.0 Reference Range: Immunity>9.9 mIU/mLStatus of Immunity Anti-HBs Level Inconsistent with Immunity 0.0 - 9.9Consistent with Immunity >9.9[facility] hepatitis B virus e antigen detection by enzyme immunoassay 2019-07-11 19:36:00* Test Item Value Reference Range Interpretation Comments Hepatitis Be Antigen (test code = 84736-1) Negative [facility] HospitalCreatine Kinase IU4477-68-04 12:55:00* Test Item Value Reference Range Interpretation Comments Creatine Kinase MB (test code = 95865-9) 4.00 0-5.0 [facility] HospitalTroponin A7915-28-09 12:55:00* Test Item Value Reference Range Interpretation Comments Troponin I (test code = LOF3831) 0.032 0-0.300 [facility] HospitalB-Type Natriuretic Ylmrjlt2777-36-97 12:48:00* Test Item Value Reference Range Interpretation Comments B-Type Natriuretic Peptide (test code = 67413-7) 3663.2 0-100 H [facility] HospitalB-Type Natriuretic Cjsheby6741-22-59 12:48:00* Test Item Value Reference Range Interpretation Comments B-Type Natriuretic Peptide (test code = 53742-5) 3663.2 0-100 H [facility] HospitalUrine [id number] 12:46:00* Test Item Value Reference Range Interpretation Comments Urine WBC (test code = 5821-4) 6-10 0-5 H [facility] HospitalUrine FOT7813-20-05 12:46:00* Test Item Value Reference Range Interpretation Comments Urine RBC (test code = 90742-3) 0-5 0-5 [facility] HospitalU[facility] Pkmunrar7064-04-91 12:46:00* Test Item Value Reference Range Interpretation Comments Urine Bacteria (test code = 54078-0) FEW NONE [facility] HospitalUrine Epithelial Jqcoh2525-89-01 12:46:00 * Test Item Value Reference Range Interpretation Comments Urine Epithelial Cells (test code = 77895-5) FEW NONE [facility] HospitalUrine TQZ1248-57-07 12:46:00* Test Item Value Reference Range Interpretation Comments Urine WBC (test code = 5821-4) 6-10 0-5 H [facility] HospitalU[facility] PDN1067-36-21 12:46:00* Test Item Value Reference Range Interpretation Comments Urine RBC (test code = 28346-3) 0-5 0-5 [facility] HospitalU[facility] Pgmetfxw9825-37-76 12:46:00* Test Item Value Reference Range Interpretation Comments Urine Bacteria (test code = 30030-1) FEW NONE [facility] HospitalUrine Epithelial Qadlp1618-26-36 12:46:00 * Test Item Value Reference Range Interpretation Comments Urine Epithelial Cells (test code = 58790-2) FEW NONE [facility] HospitalU[facility] Ktygy9161-15-63 12:43:00* Test Item Value Reference Range Interpretation Comments Urine Color (test code = 5778-6) YELLOW YELLOW [facility] HospitalU[facility] Kzgexgk1630-80-24 12:43:00* Test Item Value Reference Range Interpretation Comments Urine Clarity (test code = 54628-9) SL CLOUDY CLEAR H [facility] HospitalUrine Specific Xgwfkwf2340-93-87 12:43:00 * Test Item Value Reference Range Interpretation Comments Urine Specific [place] (test code = 5811-5) 1.025 1.010-1.02 5 [facility] HospitalU[facility] uK0209-64-28 12:43:00* Test Item Value Reference Range Interpretation Comments Urine pH (test code = 78575-7) 6 5-7 [facility] HospitalU[facility] Leukocyte Qvztogdc4164-46-34 12:43:00* Test Item Value Reference Range Interpretation Comments Urine Leukocyte Esterase (test code = 5799-2) MODERATE NEGATIVE [facility] HospitalUrine Sfasyjf9909-00-04 12:43:00* Test Item Value Reference Range Interpretation Comments Urine Nitrite (test code = 18866-8) NEGATIVE NEGATIVE [facility] Lmgrmml3143-07-53 12:43:00* Test Item Value Reference Range Interpretation Comments Urine Protein (test code = 5804-0) 2+ NEGATIVE H [facility] Glucose (UA)2019-07-11 12:43:00* Test Item Value Reference Range Interpretation Comments Urine Glucose (UA) (test code = 2349-9) 1+ NEGATIVE H [facility] Jwaebva1938-14-12 12:43:00* Test Item Value Reference Range Interpretation Comments Urine Ketones (test code = 46423-5) NEGATIVE NEGATIVE [facility] Ycthzwtolyze2962-70-04 12:43:00* Test Item Value Reference Range Interpretation Comments Urine Urobilinogen (test code = 50248-8) 0.2 0.2-1 [facility] Lfyhreema1860-31-25 12:43:00* Test Item Value Reference Range Interpretation Comments Urine Bilirubin (test code = 1978-6) SMALL NEGATIVE [facility] HospitalU[facility] Bwufn7386-61-25 12:43:00* Test Item Value Reference Range Interpretation Comments Urine Blood (test code = 63473-3) MODERATE NEGATIVE [facility] HospitalU[facility] Vqkgv8767-11-31 12:43:00* Test Item Value Reference Range Interpretation Comments Urine Color (test code = 5778-6) YELLOW YELLOW [facility] HospitalUrine Njzxnpj4322-47-78 12:43:00* Test Item Value Reference Range Interpretation Comments Urine Clarity (test code = 57820-2) SL CLOUDY CLEAR H [facility] HospitalUrine Specific Xiwtjyl0946-01-09 12:43:00 * Test Item Value Reference Range Interpretation Comments Urine Specific [place] (test code = 5811-5) 1.025 1.010-1.02 5 [facility] HospitalU[facility] tW5999-44-45 12:43:00* Test Item Value Reference Range Interpretation Comments Urine pH (test code = 49513-7) 6 5-7 [facility] Leukocyte Oowhnlhv3373-00-98 12:43:00* Test Item Value Reference Range Interpretation Comments Urine Leukocyte Esterase (test code = 5799-2) MODERATE NEGATIVE [facility] Dywlwkn9109-74-31 12:43:00* Test Item Value Reference Range Interpretation Comments Urine Nitrite (test code = 75067-5) NEGATIVE NEGATIVE [facility] Zelylob8674-08-46 12:43:00* Test Item Value Reference Range Interpretation Comments Urine Protein (test code = 5804-0) 2+ NEGATIVE H [facility] Glucose (UA)2019-07-11 12:43:00* Test Item Value Reference Range Interpretation Comments Urine Glucose (UA) (test code = 2349-9) 1+ NEGATIVE H [facility] HospitalU[facility] Vyziaot0257-43-41 12:43:00* Test Item Value Reference Range Interpretation Comments Urine Ketones (test code = 75769-7) NEGATIVE NEGATIVE [facility] Pqlhmkrdoepn2542-74-21 12:43:00* Test Item Value Reference Range Interpretation Comments Urine Urobilinogen (test code = 02829-3) 0.2 0.2-1 [facility] Szaxrzfjw7670-34-34 12:43:00* Test Item Value Reference Range Interpretation Comments Urine Bilirubin (test code = 1978-6) SMALL NEGATIVE [facility] Pgtjf8130-05-03 12:43:00* Test Item Value Reference Range Interpretation Comments Urine Blood (test code = 77667-0) MODERATE NEGATIVE [facility] HospitalInfluenza Virus Types A,B Antigen 2019-07-11 12:41:00* Test Item Value Reference Range Interpretation Comments Influenza Virus Types A,B Antigen (test code = 57999-4) NEGATIVE NEGATIVE [facility] HospitalMagnesium Qampg2163-18-60 12:41:00* Test Item Value Reference Range Interpretation Comments Magnesium Level (test code = 60711-5) 2.0 1.3-2.1 [facility] HospitalGlobulin2019-12-12 12:41:00* Test Item Value Reference Range Interpretation Comments Globulin (test code = 82567-3) 3.9 2.3-3.5 H [facility] HospitalAlbumin/Globulin Knbzo9179-58-96 12:41:00 * Test Item Value Reference Range Interpretation Comments Albumin/Globulin Ratio (test code = 1759-0) 0.7 0.8-2.0 L [facility] HospitalCreatine Ubizqu0310-59-92 12:41:00* Test Item Value Reference Range Interpretation Comments Creatine Kinase (test code = 2157-6) 97 30-200 [facility] HospitalGroup A Streptococcus Zrxujr7573-64-60 12:41:00* Test Item Value Reference Range Interpretation Comments Group A Streptococcus Screen (test code = 65572-4) NEGATIVE NEG ATIVE [facility] HospitalMagnesium Idpxo6645-74-97 12:41:00* Test Item Value Reference Range Interpretation Comments Magnesium Level (test code = 06521-6) 2.0 1.3-2.1 [facility] HospitalGroup A Streptococcus Uhyltn8679-99-61 12:41:00* Test Item Value Reference Range Interpretation Comments Group A Streptococcus Screen (test code = 97625-7) NEGATIVE NEG ATIVE [facility] HospitalProthrombin Pukt7255-30-03 12:22:00* Test Item Value Reference Range Interpretation Comments Prothrombin Time (test code = 5902-2) 14.6 11.9-14.5 H [facility] HospitalProthromb Time International Ratio 2019-07-11 12:22:00* Test Item Value Reference Range Interpretation Comments Prothromb Time International Ratio (test code = 6301-6) 1.09 Oral Anticoagulant Therapy INR Values:1. Low Intensity Therapy 1.5 - 2.02 . Moderate Intensity Therapy 2.0 - 3.03. High Intensity Therapy(1) 2.5 - 3. 54. High Intensity Therapy(2) 3.0 - 4.05. Panic Value INR > 5.0 [facility] HospitalActivated Partial Thromboplast Time 2019-07-11 12:22:00* Test Item Value Reference Range Interpretation Comments Activated Partial Thromboplast Time (test code = 71545-1) 28.9 23.8-35.5 [facility] HospitalCHEST SINGLE (PORTABLE)2019-07-11 11:31:00 [place] [address] Patient Name: VIOLETTE LAMB MR #: [id number] : 1965 Age/Sex: 54/M Req #: [id number] Adm Physician: Ordered by: GERALDINE GIRON REPORTING MANAGER Report #: [id number] Location: ER Room/Bed: Procedure: DX/CHEST SINGLE (PORTABLE) [...] Interpretation Comments Magnesium Level (test code = 04972-6) 2.0 1.3-2.1 [facility]2019-12-12 11:00:00* Test Item Value Reference Range Interpretation Comments B-Type Natriuretic Peptide (test code = 76790-6) 3663.2 0-100 [facility]trept[facility] pyogenes antigen detection in tdaizx5187-71-62 11:00:00* Test Item Value Reference Range Interpretation Comments Group A Streptococcus Screen (test code = 21799-4) NEGATIVE NEG ATIVE [facility] Hospitalerum or plasma magnesium measurement (mass/volume)2019-07-11 11:00:00* Test Item Value Reference Range Interpretation Comments Magnesium Level (test code = 64376-9) 2.0 1.3-2.1 [facility]2019-12-12 11:00:00* Test Item Value Reference Range Interpretation Comments B-Type Natriuretic Peptide (test code = 25870-4) 3663.2 0-100 [facility] Hospitaltreptococcus pyogenes antigen detection in bdlrvs3882-74-12 11:00:00* Test Item Value Reference Range Interpretation Comments Group A Streptococcus Screen (test code = 32529-0) NEGATIVE NEG ATIVE [facility] Hospitalerum or plasma magnesium measurement (mass/volume)2019-07-11 11:00:00* Test Item Value Reference Range Interpretation Comments Magnesium Level (test code = 44452-6) 2.0 1.3-2.1 [facility]2019-12-12 11:00:00* Test Item Value Reference Range Interpretation Comments B-Type Natriuretic Peptide (test code = 45499-1) 3663.2 0-100 [facility] Hospitaltreptococcus pyogenes antigen detection in dnrsmt8683-37-57 11:00:00* Test Item Value Reference Range Interpretation Comments Group A Streptococcus Screen (test code = 10563-4) NEGATIVE NEG ATIVE [facility] HospitalUrine color mgffrwklmpcit7918-63-59 10:51:00* Test Item Value Reference Range Interpretation Comments Urine Color (test code = 5778-6) YELLOW YELLOW [facility] HospitalUrine wgdzlqk8737-44-70 10:51:00* Test Item Value Reference Range Interpretation Comments Urine Clarity (test code = 38939-0) SL CLOUDY CLEAR [facility] Hospitalpecific gravity of Urine by Test strip 2019-07-11 10:51:00* Test Item Value Reference Range Interpretation Comments Urine Specific [place] (test code = 5811-5) 1.025 1.010-1.02 5 [facility] HospitalUrine pH measurement by automated test vrfml3161-72-40 10:51:00* Test Item Value Reference Range Interpretation Comments Urine pH (test code = 96980-2) 6 5-7 [facility] HospitalUrine leukocyte esterase detection by akdwxrmf9148-90-77 10:51:00* Test Item Value Reference Range Interpretation Comments Urine Leukocyte Esterase (test code = 5799-2) MODERATE NEGATIVE [facility] HospitalUrine nitrite niumowmqr1671-73-39 10:51:00* Test Item Value Reference Range Interpretation Comments Urine Nitrite (test code = 40476-0) NEGATIVE NEGATIVE [facility] HospitalUrine protein measurement by test strip (mass/volume)2019-07-11 10:51:00* Test Item Value Reference Range Interpretation Comments Urine Protein (test code = 5804-0) 2+ NEGATIVE [facility] HospitalUrine glucose hhsqiopbs1902-93-18 10:51:00* Test Item Value Reference Range Interpretation Comments Urine Glucose (UA) (test code = 2349-9) 1+ NEGATIVE [facility] HospitalUrine ketones detection by automated test fjvdj8481-85-81 10:51:00* Test Item Value Reference Range Interpretation Comments Urine Ketones (test code = 32148-9) NEGATIVE NEGATIVE [facility] HospitalUrine urobilinogen measurement by test strip (mass/volume)2019-07-11 10:51:00* Test Item Value Reference Range Interpretation Comments Urine Urobilinogen (test code = 67551-3) 0.2 0.2-1 [facility] HospitalUrine total bilirubin measurement (mass/volume)2019-07-11 10:51:00* Test Item Value Reference Range Interpretation Comments Urine Bilirubin (test code = 1978-6) SMALL NEGATIVE [facility] HospitalUrine erythrocytes ygiaruhaj7183-68-34 10:51:00* Test Item Value Reference Range Interpretation Comments Urine Blood (test code = 24413-8) MODERATE NEGATIVE [facility] HospitalAutomated urine sediment leukocyte count by microscopy (number/high power field)2019-07-11 10:51:00* Test Item Value Reference Range Interpretation Comments Urine WBC (test code = 5821-4) 6-10 0-5 [facility] HospitalErythrocytes detection in urine sediment by light ojvkoplczv4057-20-87 10:51:00* Test Item Value Reference Range Interpretation Comments Urine RBC (test code = 08427-5) 0-5 0-5 [facility] HospitalBacteria detection in urine sediment by light tdikpcussg0883-68-27 10:51:00* Test Item Value Reference Range Interpretation Comments Urine Bacteria (test code = 17909-0) FEW NONE [facility] HospitalEpithelial cells detection in urine sediment by light tnpffxjomc2473-83-08 10:51:00* Test Item Value Reference Range Interpretation Comments Urine Epithelial Cells (test code = 26563-5) FEW NONE [facility] HospitalUrine color kublobcysrfux0946-14-85 10:51:00* Test Item Value Reference Range Interpretation Comments Urine Color (test code = 5778-6) YELLOW YELLOW [facility] HospitalUrine wctrhkh1220-74-49 10:51:00* Test Item Value Reference Range Interpretation Comments Urine Clarity (test code = 27612-4) SL CLOUDY CLEAR [facility]pecific gravity of Urine by Test strip 2019-07-11 10:51:00* Test Item Value Reference Range Interpretation Comments Urine Specific [place] (test code = 5811-5) 1.025 1.010-1.02 5 [facility] HospitalUrine pH measurement by automated test psvjf2465-10-31 10:51:00* Test Item Value Reference Range Interpretation Comments Urine pH (test code = 31409-7) 6 5-7 [facility] HospitalUrine leukocyte esterase detection by csnrkymf1392-33-33 10:51:00* Test Item Value Reference Range Interpretation Comments Urine Leukocyte Esterase (test code = 5799-2) MODERATE NEGATIVE [facility] HospitalUrine nitrite cgxdcxgxg9659-36-01 10:51:00* Test Item Value Reference Range Interpretation Comments Urine Nitrite (test code = 11542-8) NEGATIVE NEGATIVE [facility] HospitalUrine protein measurement by test strip (mass/volume)2019-07-11 10:51:00* Test Item Value Reference Range Interpretation Comments Urine Protein (test code = 5804-0) 2+ NEGATIVE [facility] HospitalUrine glucose copgxhfll6509-26-72 10:51:00* Test Item Value Reference Range Interpretation Comments Urine Glucose (UA) (test code = 2349-9) 1+ NEGATIVE [facility] HospitalUrine ketones detection by automated test zushs8404-07-53 10:51:00* Test Item Value Reference Range Interpretation Comments Urine Ketones (test code = 73845-1) NEGATIVE NEGATIVE [facility] HospitalUrine urobilinogen measurement by test strip (mass/volume)2019-07-11 10:51:00* Test Item Value Reference Range Interpretation Comments Urine Urobilinogen (test code = 40020-7) 0.2 0.2-1 [facility] HospitalUrine total bilirubin measurement (mass/volume)2019-07-11 10:51:00* Test Item Value Reference Range Interpretation Comments Urine Bilirubin (test code = 1978-6) SMALL NEGATIVE [facility] HospitalUrine erythrocytes gdrbebfea3908-82-54 10:51:00* Test Item Value Reference Range Interpretation Comments Urine Blood (test code = 50632-0) MODERATE NEGATIVE [facility] HospitalAutomated urine sediment leukocyte count by microscopy (number/high power field)2019-07-11 10:51:00* Test Item Value Reference Range Interpretation Comments Urine WBC (test code = 5821-4) 6-10 0-5 [facility] HospitalErythrocytes detection in urine sediment by light yyzvccegos3686-44-56 10:51:00* Test Item Value Reference Range Interpretation Comments Urine RBC (test code = 05686-9) 0-5 0-5 [facility] HospitalBacteria detection in urine sediment by light cazjtjlzmy9475-13-92 10:51:00* Test Item Value Reference Range Interpretation Comments Urine Bacteria (test code = 55205-1) FEW NONE [facility] HospitalEpithelial cells detection in urine sediment by light trmwmugkgw9175-71-79 10:51:00* Test Item Value Reference Range Interpretation Comments Urine Epithelial Cells (test code = 00427-4) FEW NONE [facility] HospitalUrine color yddnvslycopeg9524-72-64 10:51:00* Test Item Value Reference Range Interpretation Comments Urine Color (test code = 5778-6) YELLOW YELLOW [facility] HospitalUrine kksdxhf2867-82-81 10:51:00* Test Item Value Reference Range Interpretation Comments Urine Clarity (test code = 40377-3) SL CLOUDY CLEAR [facility]pecific gravity of Urine by Test strip 2019-07-11 10:51:00* Test Item Value Reference Range Interpretation Comments Urine Specific [place] (test code = 5811-5) 1.025 1.010-1.02 5 [facility] HospitalUrine pH measurement by automated test iourv7091-13-02 10:51:00* Test Item Value Reference Range Interpretation Comments Urine pH (test code = 75993-2) 6 5-7 [facility] HospitalUrine leukocyte esterase detection by tzmvpwgi6228-28-87 10:51:00* Test Item Value Reference Range Interpretation Comments Urine Leukocyte Esterase (test code = 5799-2) MODERATE NEGATIVE [facility] HospitalUrine nitrite txxjnedev2547-26-34 10:51:00* Test Item Value Reference Range Interpretation Comments Urine Nitrite (test code = 80794-2) NEGATIVE NEGATIVE [facility] HospitalUrine protein measurement by test strip (mass/volume)2019-07-11 10:51:00* Test Item Value Reference Range Interpretation Comments Urine Protein (test code = 5804-0) 2+ NEGATIVE [facility] HospitalUrine glucose edybxcgna1108-83-91 10:51:00* Test Item Value Reference Range Interpretation Comments Urine Glucose (UA) (test code = 2349-9) 1+ NEGATIVE [facility] HospitalUrine ketones detection by automated test hipoi6192-12-24 10:51:00* Test Item Value Reference Range Interpretation Comments Urine Ketones (test code = 03262-7) NEGATIVE NEGATIVE [facility] HospitalUrine urobilinogen measurement by test strip (mass/volume)2019-07-11 10:51:00* Test Item Value Reference Range Interpretation Comments Urine Urobilinogen (test code = 63639-3) 0.2 0.2-1 [facility] HospitalUrine total bilirubin measurement (mass/volume)2019-07-11 10:51:00* Test Item Value Reference Range Interpretation Comments Urine Bilirubin (test code = 1978-6) SMALL NEGATIVE [facility] HospitalUrine erythrocytes mokhpehyb2452-65-63 10:51:00* Test Item Value Reference Range Interpretation Comments Urine Blood (test code = 06961-1) MODERATE NEGATIVE [facility] HospitalAutomated urine sediment leukocyte count by microscopy (number/high power field)2019-07-11 10:51:00* Test Item Value Reference Range Interpretation Comments Urine WBC (test code = 5821-4) 6-10 0-5 [facility] HospitalErythrocytes detection in urine sediment by light vlrbebfopc8580-47-19 10:51:00* Test Item Value Reference Range Interpretation Comments Urine RBC (test code = 17498-5) 0-5 0-5 [facility] HospitalBacteria detection in urine sediment by light vsrrgvddml9599-95-53 10:51:00* Test Item Value Reference Range Interpretation Comments Urine Bacteria (test code = 44593-5) FEW NONE [facility] HospitalEpithelial cells detection in urine sediment by light ljhlmnqjjk5583-19-05 10:51:00* Test Item Value Reference Range Interpretation Comments Urine Epithelial Cells (test code = 40412-8) FEW NONE [facility] Hospitalodium Kggtl3932-02-40 15:21:00* Test Item Value Reference Range Interpretation Comments Sodium Level (test code = 2951-2) 137 136-145 [facility] HospitalPotassium Vjmgp1848-25-72 15:21:00* Test Item Value Reference Range Interpretation Comments Potassium Level (test code = 2823-3) 3.8 3.5-5.1 [facility] HospitalChloride Xnzvb3969-85-77 15:21:00* Test Item Value Reference Range Interpretation Comments Chloride Level (test code = 2075-0) 97 98-107 L [facility] HospitalCarbon Dioxide Ixvdc6342-80-86 15:21:00* Test Item Value Reference Range Interpretation Comments Carbon Dioxide Level (test code = 2028-9) 29 22-29 [facility] HospitalAnion Dbu2817-38-33 15:21:00* Test Item Value Reference Range Interpretation Comments Anion Gap (test code = 32913-4) 14.8 8-16 [facility] HospitalBlood Urea Jazhjbau8728-25-85 15:21:00* Test Item Value Reference Range Interpretation Comments Blood Urea Nitrogen (test code = 3094-0) 28 7-26 H [facility] HospitalCreatinine2019-11-18 15:21:00* Test Item Value Reference Range Interpretation Comments Creatinine (test code = 2160-0) 4.43 0.72-1.25 H [facility] HospitalBUN/Creatinine Ghxie3431-02-61 15:21:00* Test Item Value Reference Range Interpretation Comments BUN/Creatinine Ratio (test code = 3097-3) 6 6-25 [facility] HospitalEstimat Glomerular Filtration Rate 2019-06-17 15:21:00* Test Item Value Reference Range Interpretation Comments Estimat Glomerular Filtration Rate (test code = 974570203) 14 >60 L Ranges were taken from the National Kidney Disease Education Program and the [facility] literature.Reference ranges:60 or greater: Gfutcr95-07 ( for 3 consecutive months): Chronic kidney disease 15 or less: Kidney failureResolute Health HospitalGlucose Qcmcx1302-35-40 15:21:00* Test Item Value Reference Range Interpretation Comments Glucose Level (test code = FFE9762) 125 74-118 H [facility] Hospital[facility] [id number] 15:21:00* Test Item Value Reference Range Interpretation Comments Calcium Level (test code = 77224-6) 9.2 8.4-10.2 [facility]
[2019-12-29] MEDS ORDERED: SILVER NITRATE SWABS ONE (11:46)
--- NOTE | 2019-12-29 11:55 | Emergency Department Note ---
History of Present Illnes History of Present Illness Chief Complaint: rgt nasal bleeding History of Present Illness This is a 54 year old male. h/o intermittent minor rgt nasal bleeding over the past 4 weeks. + worsening of chronic cough.seen in er multiple times with f/u with pt's ent and cauterize Historian: Patient Arrival Mode: Car History limited by: condition of the patient Onset (how long ago): hour(s) (6 hours ago(duration= 3minutes)) Location: rgt nose Quality: mild Radiation: non-radiation Severity: mild Onset quality: sudden Duration (how long): hour(s) (/12th of an hour) Timing of current episode: intermittent Progression: resolved Chronicity: recurrent Context: recent illness, recent surgery, recent immobilization, recent travel, trauma/injury, new medications, hx of DVT/PE Relieving factors: none Exacerbating factors: none Associated symptoms: denies other symptoms Treatments prior to arrival: none Past Medical/Family History Physician Review I have reviewed the patient's past medical and family history. Any updates have been documented here. Past Medical History Recent Fever: No Clinical Suspicion of Infectio: No New/Unexplained Change in Ment: No Past Medical History: Hypertension, Diabetes, ESRD, Chronic Kidney Disease Other Medical History: ESRD, dialysis, legally blind Other Surgery: Heart Surgery Social History Smoking Cessation: Never Smoker Alcohol Use: Social Any Illegal Drug Use: No TB Exposure/Symptoms: No Physically hurt or threatened: No Family History Family history of heart diseas: No Other Last Tetanus: UTD Any Pre-Existing Lines (PICC,: No Is patient up to date on immun: No Review of Systems Review of Systems Constitutional: no symptoms EENTM: as per HPI Cardiovascular: no symptoms Respiratory: no symptoms Gastrointestinal: no symptoms Genitourinary: no symptoms Musculoskeletal: no symptoms Neurological: no symptoms Psychological: no symptoms Endocrine: no symptoms Hematological/Lymphatic: no symptoms Review of other systems All other systems reviewed and negative. Physical Exam Related Data Allergies: Coded Allergies: No Known Allergies (Unverified , 06/17/19) Triage Vital Signs Vital Signs Date Time Temp Pulse Resp B/P (MAP) Pulse Ox O2 Delivery O2 Flow Rate FiO2 12/29/19 11:33 98.8 71 16 137/69 96 Vital signs reviewed: Yes Physical Exam CONSTITUTIONAL Constitutional: well-developed, well-nourished HENT HENT: normocephalic, atraumatic, oropharynx clear/moist, other (rgt nasal mucous membrane + anterior septal coagulate blood) HENT L/R: left ext ear normal, right ext ear normal EYES Eyes: PERRL, conjunctivae normal NECK Neck: ROM normal PULMONARY Pulmonary: effort normal, breath sounds normal CARDIOVASCULAR Cardiovascular: regular rhythm, heart sounds normal, capillary refill normal, normal rate GASTROINTESTINAL Abdominal: soft, nontender, bowel sounds normal GENITOURINARY Genitourinary: exam deferred SKIN Skin: warm, dry MUSCULOSKELETAL Musculoskeletal: ROM normal NEUROLOGICAL Neurological: alert, oriented x 3, no gross motor or sensory deficits PSYCHOLOGICAL Psychological: mood/affect normal, judgement normal Procedures Epistaxis Control Time out performed: Yes Nostril: right Nose prepped with: other (none) Direct inspection: anterior source identified Epistaxis treatment: silver nitrate cautery Results of treatment: bleeding controlled, treatment well tolerated Complications: none Critical Care Time Subsequent provider I assumed direction of critical care for this patient from another provider of my specialty. Assessment & Plan Assessment & Plan Final Impression: (1) EPISTAXIS (2) ACUTE BRONCHITIS, UNSPECIFIED Assessment & Plan take rxed omnicef and afrin nasal spray (prn). follow up with your ent Depart Disposition: HOME, SELF-CARE Last Vital Signs Date Time Temp Pulse Resp B/P (MAP) Pulse Ox O2 Delivery O2 Flow Rate FiO2 12/29/19 11:33 98.8 71 16 137/69 96 Home Meds Reported Medications Lisinopril (LISINOPRIL) 10 Mg Tablet, 20 MG PO DAILY, #30 TAB 07/11/19 Tamsulosin Hcl* (FLOMAX*) 0.4 Mg Cap, 0.4 MG PO DAILY, #30 CAP 07/11/19 Carvedilol (CARVEDILOL) 12.5 Mg Tablet, 25 MG PO BID, #60 TAB 07/11/19 Metformin Hcl (METFORMIN HCL) 500 Mg Tablet, 500 MG PO DAILY, #60 TAB 07/11/19 Medications in the ED Silver Nitrate 1 ea STK-MED ONCE .ROUTE ; Start 12/29/19 at 11:46; Stop 12/29/19 at 11:41; Status DC DELMAR MARSHALL December 29, 2019 11:54
== END 2019-12-29 12:17 | disposition home or self-care (01) ==
LOC: ER 10:51
DX: R04.0 Epistaxis (principal); R05 Cough; J20.9 Acute bronchitis, unspecified; I12.0 Hypertensive chronic kidney disease with stage 5 chronic kidney disease or end stage renal disease; E11.22 Type 2 diabetes mellitus with diabetic chronic kidney disease; N18.6 End stage renal disease; Z99.2 Dependence on renal dialysis; Z79.84 Long term (current) use of oral hypoglycemic drugs; H54.8 Legal blindness, as defined in USA
CPT/HCPCS: 99282

== ENCOUNTER 2020-01-03 15:24 | Observation (INO) | payer MEDICARE, OTHER ==
[~2020-01-03] VITALS: Ht 177.8 cm; Wt 87.5 kg
--- OUTSIDE RECORDS SUMMARY | 2020-01-03 15:29 | XMS REPORT | Continuity of Care Document ---
Author Author [facility] t Organization [facility] Address [address] [place] [address] Phone Unavailable Care Team Providers Care Operations General Agent Name Role Phone ADIN FAUSTIN PCP Prieto FAUSTIN MD Attphys Unavailable Alissa SALVADOR Attphys Unavailable CINDY ALVAREZ Attphys Unavailable Alissa SALVADOR Admphys Unavailable CINDY ALVAREZphys Unavailable Payers Payer Name Policy Type Policy Number Effective Date Expiration Date Sarita banks [employer] Medicare Complete NA 2019 00:00:00 [facility] [id number] 2018 00:00:00 [facility] Problems Condition Name Condition Details Condition Category Status Onset Date Resolution Date Last Treatment Date Treating Clinician Comments Source Epistaxis Problem Active [facility] Allergies, Adverse Reactions, Alerts Allergy Name Allergy Type Status Severity Reaction(s) Onset Date Inacti ve Date Treating Clinician Comments Source No Known Allergies DA Active U 2019-10-07 [facility] No Known Allergies DA Active U 2019-09-09 00:00:00 [facility] Social History Social Habit Start Date Stop Date Quantity Comments Source Sex Assigned At 1965 00:00:00 1965 00:00:00 Male [facility] Medications Ordered Medication Name Filled Medication Name Start Date Stop Da te Current Medication? Ordering Clinician Indication Dosage Frequency Signature (SIG) Comments Components Source Carvedilol Carvedilol Yes 25 Twice A Day [facility] Lisinopril Lisinopril Yes 20 Daily [facility] Metformin Hcl Metformin Hcl Yes 500 Daily [facility] Tamsulosin Hcl (Flomax*) 0.4 Mg CAP Tamsulosin Hcl (Flomax*) 0.4 Mg C AP Yes .4 Daily [facility] Vital Signs Vital Name Observation Time Observation Value Comments Source Weight 2019-12-29 11:33:00 193 [lb_av] [facility] BMI (Body Mass Index) 2019-12-29 11:33:00 27.7 kg/m2 [facility] Weight 2019-12-26 08:25:00 193 [lb_av] [facility] BMI (Body Mass Index) 2019-12-26 08:25:00 27.7 kg/m2 [facility] Weight 2019-12-25 09:38:00 193 [lb_av] [facility] BMI (Body Mass Index) 2019-12-25 09:38:00 27.7 kg/m2 [facility] Weight 2019-12-23 10:48:00 193 [lb_av] [facility] BMI (Body Mass Index) 2019-12-23 10:48:00 27.7 kg/m2 [facility] Body Temperature 2019-10-23 12:00:00 97.6 [degF] [facility] Procedures Procedure Date / Time Performed Performing Clinician Vivien deleon US abdomen complete 2019-12-26 00:00:00 [facility] US Abdomen limited 2019-10-22 00:00:00 YAJAIRA GRAMAJO [facility] Talha [facility] TRANSFUSE NONAUT RED BLOOD CELLS IN PERIPH VEIN, PERC 2019-10-18 00:00:00 [facility] PERFORMANCE OF URINARY FILTRATION, <6 HRS/DAY 2019-10-18 00:00:0 0 [facility] CONTROL BLEEDING IN NASAL MUCOSA AND SOFT TISSUE, ENDO 2019-09-30 0 00:00:00 [facility] Computed tomography of chest without contrast 2019-07-12 00:00:0 0 ALVAREZ, CINDY [facility] PERFORMANCE OF URINARY FILTRATION, <6 HRS/DAY 2019-07-12 00:00:[address] [facility] [address] of abdomen and pelvis without contrast 2019-07-12 00:00:00 [facility] Plan of Care Planned Activity Planned Date Details Comments Source Instructions Bronchitis (Acute) - Adult C [facility] Instructions Epistaxis - Adult [facility] Encounters Start Date/Time End Date/Time Encounter Type Admission Type Attendi [facility] Facility Care Department Encounter ID Source 2019-12-29 10:51:00 2019-12-29 12:17:00 Departed Emergency Room [facility] [id number] [facility] 2019-12-26 08:15:00 2019-12-26 10:08:00 Departed Emergency Room [facility] [id number] [facility] 2019-12-26 07:33:00 2019-12-26 07:33:00 Registered Clinic 3 ADIN FAUSTIN MD [facility] [id number] [facility] Denise kes [facility] 2019-12-25 09:16:00 2019-12-25 09:50:00 Departed Emergency Room [facility] [id number] [facility] 2019-12-23 10:09:00 2019-12-23 11:07:00 Departed Emergency Room [facility] [id number] [facility] 2019-10-18 22:29:00 2019-10-23 15:50:00 Discharged Inpatient 1 APWEL SALVADOR [facility] [id number] [facility] 2019-09-24 15:47:00 2019-09-24 15:47:00 Outpatient MHSE PHAN [address] [facility] 2019-08-07 07:54:00 2019-08-07 07:54:00 Registered Clinic [facility] [id number] [facility] 2019-07-12 08:43:00 2019-07-17 17:30:00 Discharged Inpatient 1 CINDY ALVAREZ [facility] [id number] [facility] 2019-06-17 13:10:00 2019-06-17 16:32:00 [facility] [id number] [facility] Results Test Description Test Time Test Comments Results Result Comments Source US ABDOMEN COMPLETE 2019-12-26 09:40:00 [facility] [address] [address] Patient Name: VIOLETTE LAMB MR #: [id number] : 1965 Age/Sex: 54/M Req #: [id number] Adm Physician: Ordered by: OMKAR WILSON, ADIN Moreau MD Report #: [id number] Location: Room/Bed: Procedure: [id number] US/US ABDOMEN COMPLETE Exam Date: 12/26/19 Exam [...] stone, or pericholecystic fluid. Negative reported sonographic Fonseca's sign. The gallbladder wall measures 4mm BILE [...] MD on 12/26/2019 9:42 AM Dictated By: LISSETH JONES MD 1 Transcribed By: DARRON on 12/26/19941 COPY TO: ADIN FAUSTIN Blood leukocytes automated count (number/volume) 2019-12-26 08:45:00 Test Item White Blood Count (test code = 6690-2) 6.56 4.8-10.8 [facility] automated count (number/volume)2019-12-26 08:45:00* Test Item Value Reference Range Interpretation Comments Red Blood Count (test code = 789-8) 2.51 4.3-5.7 [facility] hemoglobin measurement (moles/volume)2019-12-26 08:45:00* Test Item Value Reference Range Interpretation Comments Hemoglobin (test code = 19146-2) 8.2 14.0-18.0 [facility] HospitalAutomated blood hematocrit (volume fraction)2019-12-26 08:45:00* Test Item Value Reference Range Interpretation Comments Hematocrit (test code = 4544-3) 24.8 38.2-49.6 [facility] HospitalAutomated erythrocyte mean corpuscular qeelog1917-95-69 08:45:00* Test Item Value Reference Range Interpretation Comments Mean Corpuscular Volume (test code = 787-2) 98.8 81-99 [facility] HospitalAutomated erythrocyte mean corpuscular hemoglobin (mass per erythrocyte)2019-12-26 08:45:00* Test Item Value Reference Range Interpretation Comments Mean Corpuscular Hemoglobin (test code = 785-6) 32.7 28-32 [facility] HospitalAutomated erythrocyte mean corpuscular hemoglobin concentration measurement (mass/volume)2019-12-26 08:45:00* Test Item Value Reference Range Interpretation Comments Mean Corpuscular Hemoglobin Concent (test code = 786-4) 33.1 31-35 [facility] HospitalRDW OfuDd-Qaw2220-49-28 08:45:00* Test Item Value Reference Range Interpretation Comments Red Cell Distribution Width (test code = 72779-9) 13.9 11.7 -14.4 [facility] HospitalAutomated blood platelet count (count/volume)2019-12-26 08:45:00* Test Item Value Reference Range Interpretation Comments Platelet Count (test code = 777-3) 136 140-360 [facility] HospitalAutomated blood segmented neutrophil count as percentage of total oewoyimcdq6321-99-52 08:45:00* Test Item Value Reference Range Interpretation Comments Neutrophils (%) (Auto) (test code = 57949-5) 78.9 38.7-80.0 [facility] HospitalAutomated blood lymphocyte count as percentage ot total euncbcrntc0756-83-37 08:45:00* Test Item Value Reference Range Interpretation Comments Lymphocytes (%) (Auto) (test code = 736-9) 8.2 18.0-39.1 [facility] HospitalAutomated blood monocyte count as percentage of total aqhpypacqx8121-08-90 08:45:00* Test Item Value Reference Range Interpretation Comments Monocytes (%) (Auto) (test code = 5905-5) 9.8 4.4-11.3 [facility] HospitalAutomated blood eosinophil count as percentage of total jnoqbjxahj5931-98-45 08:45:00* Test Item Value Reference Range Interpretation Comments Eosinophils (%) (Auto) (test code = 713-8) 2.3 0.0-6.0 [facility] HospitalAutomated blood basophil count as percentage of total segeawxuhq9524-90-41 08:45:00* Test Item Value Reference Range Interpretation Comments Basophils (%) (Auto) (test code = 706-2) 0.5 0.0-1.0 [facility] HospitalFluoroscopic procedure less than one hour wmelyrgf6954-29-94 08:45:00* Test Item Value Reference Range Interpretation Comments IM GRANULOCYTES % (test code = IM GRANULOCYTES %) 0.3 0.0- 1.0 [facility] HospitalAutomated blood neutrophil count 2019-12-26 08:45:00* Test Item Value Reference Range Interpretation Comments Neutrophils # (Auto) (test code = 751-8) 5.2 2.1-6.9 [facility] HospitalBlood lymphocytes count (number/volume) 2019-12-26 08:45:00* Test Item Value Reference Range Interpretation Comments Lymphocytes # (Auto) (test code = 84001-5) 0.5 1.0-3.2 [facility] HospitalBlood monocytes automated count (number/volume)2019-12-26 08:45:00* Test Item Value Reference Range Interpretation Comments Monocytes # (Auto) (test code = 742-7) 0.6 0.2-0.8 [facility] HospitalAutomated blood eosinophil count 2019-12-26 08:45:00* Test Item Value Reference Range Interpretation Comments Eosinophils # (Auto) (test code = 711-2) 0.2 0.0-0.4 [facility] HospitalAutomated blood basophil count (count/volume)2019-12-26 08:45:00* Test Item Value Reference Range Interpretation Comments Basophils # (Auto) (test code = 704-7) 0.0 0.0-0.1 [facility] HospitalFluoroscopic procedure less than one hour wyurgsjt9983-29-52 08:45:00* Test Item Value Reference Range Interpretation Comments Absolute Immature Granulocyte (auto (rupinder t code = Absolute Immature Granulocyte (auto) 0.02 0-0.1 [facility] HospitalProthrombin time (PT) in platelet poor plasma by coagulation vxkjp5982-25-07 08:45:00* Test Item Value Reference Range Interpretation Comments Prothrombin Time (test code = 5902-2) 14.1 11.9-14.5 [facility] HospitalINR in Platelet poor plasma by Coagulation mpxgz4566-87-66 08:45:00* Test Item Value Reference Range Interpretation Comments Prothromb Time International Ratio (test code = 6301-6) 1.03 Oral Anticoagulant Therapy INR Values:1. Low Intensity Therapy 1.5 - 2.02 . Moderate Intensity Therapy 2.0 - 3.03. High Intensity Therapy(1) 2.5 - 3. 54. High Intensity Therapy(2) 3.0 - 4.05. Panic Value INR > 5.0 [facility] HospitalActivated partial thromboplastin time (aPTT) in platelet poor plasma by coagulation ilvcr8501-94-67 08:45:00* Test Item Value Reference Range Interpretation Comments Activated Partial Thromboplast Time (test code = 92372-0) 31.2 23.8-35.5 [facility] HospitalBlood leukocytes automated count (number/volume)2019-12-26 08:45:00* Test Item Value Reference Range Interpretation Comments White Blood Count (test code = 6690-2) 6.56 4.8-10.8 [facility] HospitalBlood erythrocytes automated count (number/volume)2019-12-26 08:45:00* Test Item Value Reference Range Interpretation Comments Red Blood Count (test code = 789-8) 2.51 4.3-5.7 [facility] HospitalBlood hemoglobin measurement (moles/volume)2019-12-26 08:45:00* Test Item Value Reference Range Interpretation Comments Hemoglobin (test code = 68667-2) 8.2 14.0-18.0 [facility] HospitalAutomated blood hematocrit (volume fraction)2019-12-26 08:45:00* Test Item Value Reference Range Interpretation Comments Hematocrit (test code = 4544-3) 24.8 38.2-49.6 [facility] HospitalAutomated erythrocyte mean corpuscular zrldqr5795-75-08 08:45:00* Test Item Value Reference Range Interpretation Comments Mean Corpuscular Volume (test code = 787-2) 98.8 81-99 [facility] HospitalAutomated erythrocyte mean corpuscular hemoglobin (mass per erythrocyte)2019-12-26 08:45:00* Test Item Value Reference Range Interpretation Comments Mean Corpuscular Hemoglobin (test code = 785-6) 32.7 28-32 [facility] HospitalAutselect [facility] hospital [facility]boroed erythrocyte mean corpuscular hemoglobin concentration measurement (mass/volume)2019-12-26 08:45:00* Test Item Value Reference Range Interpretation Comments Mean Corpuscular Hemoglobin Concent (test code = 786-4) 33.1 31-35 [facility] HospitalRDW InkPq-Qwu6997-54-28 08:45:00* Test Item Value Reference Range Interpretation Comments Red Cell Distribution Width (test code = 52134-7) 13.9 11.7 -14.4 [facility] HospitalAutselect specialty hospital - greensboroed blood platelet count (count/volume)2019-12-26 08:45:00* Test Item Value Reference Range Interpretation Comments Platelet Count (test code = 777-3) 136 140-360 [facility] HospitalAutomated blood segmented neutrophil count as percentage of total ddhkhjvirh0134-59-77 08:45:00* Test Item Value Reference Range Interpretation Comments Neutrophils (%) (Auto) (test code = 78069-5) 78.9 38.7-80.0 [facility] HospitalAutomated blood lymphocyte count as percentage ot total ypbsiealhq9092-57-83 08:45:00* Test Item Value Reference Range Interpretation Comments Lymphocytes (%) (Auto) (test code = 736-9) 8.2 18.0-39.1 [facility] HospitalAutomated blood monocyte count as percentage of total yuumndvzhv4869-48-32 08:45:00* Test Item Value Reference Range Interpretation Comments Monocytes (%) (Auto) (test code = 5905-5) 9.8 4.4-11.3 [facility] HospitalAutomated blood eosinophil count as percentage of total hmkotvfagl7522-02-88 08:45:00* Test Item Value Reference Range Interpretation Comments Eosinophils (%) (Auto) (test code = 713-8) 2.3 0.0-6.0 [facility] HospitalAutomated blood basophil count as percentage of total cmwochutvr8420-92-61 08:45:00* Test Item Value Reference Range Interpretation Comments Basophils (%) (Auto) (test code = 706-2) 0.5 0.0-1.0 [facility] HospitalFluoroscopic procedure less than one hour nvbafwun5387-46-35 08:45:00* Test Item Value Reference Range Interpretation Comments IM GRANULOCYTES % (test code = IM GRANULOCYTES %) 0.3 0.0- 1.0 [facility] HospitalAutomated blood neutrophil count 2019-12-26 08:45:00* Test Item Value Reference Range Interpretation Comments Neutrophils # (Auto) (test code = 751-8) 5.2 2.1-6.9 [facility] HospitalBlood lymphocytes count (number/volume) 2019-12-26 08:45:00* Test Item Value Reference Range Interpretation Comments Lymphocytes # (Auto) (test code = 15739-9) 0.5 1.0-3.2 [facility] HospitalBlood monocytes automated count (number/volume)2019-12-26 08:45:00* Test Item Value Reference Range Interpretation Comments Monocytes # (Auto) (test code = 742-7) 0.6 0.2-0.8 [facility] HospitalAutomated blood eosinophil count 2019-12-26 08:45:00* Test Item Value Reference Range Interpretation Comments Eosinophils # (Auto) (test code = 711-2) 0.2 0.0-0.4 [facility] HospitalAutomated blood basophil count (count/volume)2019-12-26 08:45:00* Test Item Value Reference Range Interpretation Comments Basophils # (Auto) (test code = 704-7) 0.0 0.0-0.1 [facility] HospitalFluoroscopic procedure less than one hour hkloxten8742-44-27 08:45:00* Test Item Value Reference Range Interpretation Comments Absolute Immature Granulocyte (auto (rupinder t code = Absolute Immature Granulocyte (auto) 0.02 0-0.1 [facility] HospitalProthrombin time (PT) in platelet poor plasma by coagulation dtzzo5057-54-17 08:45:00* Test Item Value Reference Range Interpretation Comments Prothrombin Time (test code = 5902-2) 14.1 11.9-14.5 [facility] HospitalINR in Platelet poor plasma by Coagulation mzawd4059-13-29 08:45:00* Test Item Value Reference Range Interpretation Comments Prothromb Time International Ratio (test code = 6301-6) 1.03 Oral Anticoagulant Therapy INR Values:1. Low Intensity Therapy 1.5 - 2.02 . Moderate Intensity Therapy 2.0 - 3.03. High Intensity Therapy(1) 2.5 - 3. 54. High Intensity Therapy(2) 3.0 - 4.05. Panic Value INR > 5.0 [facility] HospitalActivated partial thromboplastin time (aPTT) in platelet poor plasma by coagulation bfmku0693-43-06 08:45:00* Test Item Value Reference Range Interpretation Comments Activated Partial Thromboplast Time (test code = 80352-4) 31.2 23.8-35.5 [facility] HospitalBlood Rupdsjb5288-90-13 11:35:00* Test Item Value Reference Range Interpretation Comments Blood Culture (test code = 37734279) NO GROWTH AFTER 5 DAYS, FINAL REPORT [facility] HospitalBedside Tprvezz3872-68-79 11:41:00* Test Item Value Reference Range Interpretation Comments Bedside Glucose (test code = 62960-0) 131 70-120 H Meter ID: [id number] [facility] HospitalPlatelet Morphology Uzxdrcn8357-15-00 11:02:00* Test Item Value Reference Range Interpretation Comments Platelet Morphology Comment (test code = 86720-9) NO EDTA PLT CLUMP S SEEN [facility] HospitalCapillary blood glucose measurement by glucometer (mass/volume)2019-10-23 10:59:00* Test Item Value Reference Range Interpretation Comments Bedside Glucose (test code = 53922-5) 131 70-120 Meter ID: [id number] [facility] HospitalCapillary blood glucose measurement by glucometer (mass/volume)2019-10-23 10:59:00* Test Item Value Reference Range Interpretation Comments Bedside Glucose (test code = 54188-6) 131 70-120 Meter ID: [id number] [facility] HospitalCapillary blood glucose measurement by glucometer (mass/volume)2019-10-23 10:59:00* Test Item Value Reference Range Interpretation Comments Bedside Glucose (test code = 02797-6) 131 70-120 Meter ID: [id number] [facility]Cap[facility] blood glucose measurement by glucometer (mass/volume)2019-10-23 10:59:00* Test Item Value Reference Range Interpretation Comments Bedside Glucose (test code = 95189-3) 131 70-120 Meter ID: [id number] [facility] 2019-10-23 06:43:00* Test Item Value Reference Range Interpretation Comments Sodium Level (test code = 2951-2) 133 136-145 L [facility] HospitalPotassium Twrnc6855-66-72 06:43:00* Test Item Value Reference Range Interpretation Comments Potassium Level (test code = 2823-3) 3.9 3.5-5.1 [facility] HospitalChloride Xmxmm4228-40-72 06:43:00* Test Item Value Reference Range Interpretation Comments Chloride Level (test code = 2075-0) 100 98-107 [facility] HospitalCarbon Dioxide Toccg6493-25-15 06:43:00* Test Item Value Reference Range Interpretation Comments Carbon Dioxide Level (test code = 2028-9) 24 22-29 [facility] HospitalAnion Kvu1544-69-44 06:43:00* Test Item Value Reference Range Interpretation Comments Anion Gap (test code = 59610-6) 12.9 8-16 [facility] HospitalBlood Urea Nttilrke4105-89-70 06:43:00* Test Item Value Reference Range Interpretation Comments Blood Urea Nitrogen (test code = 3094-0) 54 7-26 H [facility] HospitalCreatinine2020-03-25 06:43:00* Test Item Value Reference Range Interpretation Comments Creatinine (test code = 2160-0) 4.25 0.72-1.25 H [facility] HospitalBUN/Creatinine Fvuoi0561-39-88 06:43:00* Test Item Value Reference Range Interpretation Comments BUN/Creatinine Ratio (test code = 3097-3) 13 6-25 [facility] HospitalEstimat Glomerular Filtration Rate 2019-10-23 06:43:00* Test Item Value Reference Range Interpretation Comments Estimat Glomerular Filtration Rate (test code = 321114607) 15 >60 L Ranges were taken from the National Kidney Disease Education Program and the [facility] literature.Reference ranges:60 or greater: Tqhige65-31 ( for 3 consecutive months): Chronic kidney disease 15 or less: Kidney failureHouston Methodist HospitalGlucose Aeait9237-67-38 06:43:00* Test Item Value Reference Range Interpretation Comments Glucose Level (test code = YZZ1361) 158 74-118 H [facility] HospitalCalcium Qppmu3310-59-65 06:43:00* Test Item Value Reference Range Interpretation Comments Calcium Level (test code = 32707-1) 7.8 8.4-10.2 L [facility] HospitalTotal Cldqhiflx5752-99-89 06:43:00* Test Item Value Reference Range Interpretation Comments Total Bilirubin (test code = 1975-2) 5.3 0.2-1.2 H [facility] HospitalAspartate Amino Transf (AST/SGOT) 2019-10-23 06:43:00* Test Item Value Reference Range Interpretation Comments Aspartate Amino Transf (AST/SGOT) (test code = Aspartate Amino Transf (AST/SGOT)) 31 5-34 [facility] HospitalAlanine Aminotransferase (ALT/SGPT) 2019-10-23 06:43:00* Test Item Value Reference Range Interpretation Comments Alanine Aminotransferase (ALT/SGPT) (test code = 1742-6) 36 0-55 [facility] HospitalTotal Hnkrmvu6739-97-57 06:43:00* Test Item Value Reference Range Interpretation Comments Total Protein (test code = 2885-2) 5.8 6.5-8.1 L [facility] HospitalAlbumin2020-03-25 06:43:00* Test Item Value Reference Range Interpretation Comments Albumin (test code = 1751-7) 2.2 3.5-5.0 L [facility] HospitalGlobulin2020-03-25 06:43:00* Test Item Value Reference Range Interpretation Comments Globulin (test code = 90176-3) 3.6 2.3-3.5 H [facility] HospitalAlbumin/Globulin Eddhg9557-98-37 06:43:00 * Test Item Value Reference Range Interpretation Comments Albumin/Globulin Ratio (test code = 1759-0) 0.6 0.8-2.0 L [facility] HospitalAlkaline Natztseqcet6534-85-11 06:43:00* Test Item Value Reference Range Interpretation Comments Alkaline Phosphatase (test code = 6768-6) 630 40-150 H [facility] HospitalWhite Blood Uzdkh9921-46-19 06:07:00* Test Item Value Reference Range Interpretation Comments White Blood Count (test code = 6690-2) 4.19 4.8-10.8 L [facility] HospitalRed Blood Vybjn9434-42-36 06:07:00* Test Item Value Reference Range Interpretation Comments Red Blood Count (test code = 789-8) 2.55 4.3-5.7 L [facility] HospitalHemoglobin2020-03-25 06:07:00* Test Item Value Reference Range Interpretation Comments Hemoglobin (test code = 11451-5) 8.3 14.0-18.0 L [facility] HospitalHematocrit2020-03-25 06:07:00* Test Item Value Reference Range Interpretation Comments Hematocrit (test code = 4544-3) 25.0 38.2-49.6 L [facility] HospitalMean Corpuscular Spjvya0665-36-32 06:07:00* Test Item Value Reference Range Interpretation Comments Mean Corpuscular Volume (test code = 787-2) 98.0 81-99 [facility] HospitalMean Corpuscular Yumsiywbau7565-02-39 06:07:00* Test Item Value Reference Range Interpretation Comments Mean Corpuscular Hemoglobin (test code = 785-6) 32.5 28-32 H [facility] HospitalMean Corpuscular Hemoglobin Concent 2019-10-23 06:07:00* Test Item Value Reference Range Interpretation Comments Mean Corpuscular Hemoglobin Concent (test code = 786-4) 33.2 31-35 [facility] HospitalRed Cell Distribution Hzltx2623-21-04 06:07:00* Test Item Value Reference Range Interpretation Comments Red Cell Distribution Width (test code = 90486-6) 17.8 11.7 -14.4 H [facility] HospitalPlatelet Nkbtq5189-83-88 06:07:00* Test Item Value Reference Range Interpretation Comments Platelet Count (test code = 777-3) 86 140-360 L [facility] HospitalNeutrophils (%) (Auto)2019-10-23 06:07:00 * Test Item Value Reference Range Interpretation Comments Neutrophils (%) (Auto) (test code = 21166-8) 76.2 38.7-80.0 [facility] HospitalLymphocytes (%) (Auto)2019-10-23 06:07:00 * Test Item Value Reference Range Interpretation Comments Lymphocytes (%) (Auto) (test code = 736-9) 12.6 18.0-39.1 L [facility] HospitalMonocytes (%) (Auto)2019-10-23 06:07:00* Test Item Value Reference Range Interpretation Comments Monocytes (%) (Auto) (test code = 5905-5) 8.6 4.4-11.3 [facility] HospitalEosinophils (%) (Auto)2019-10-23 06:07:00 * Test Item Value Reference Range Interpretation Comments Eosinophils (%) (Auto) (test code = 713-8) 2.1 0.0-6.0 [facility] HospitalBasophils (%) (Auto)2019-10-23 06:07:00* Test Item Value Reference Range Interpretation Comments Basophils (%) (Auto) (test code = 706-2) 0.0 0.0-1.0 [facility] HospitalIM GRANULOCYTES %2019-10-23 06:07:00* Test Item Value Reference Range Interpretation Comments IM GRANULOCYTES % (test code = IM GRANULOCYTES %) 0.5 0.0- 1.0 [facility] HospitalNeutrophils # (Auto)2019-10-23 06:07:00* Test Item Value Reference Range Interpretation Comments Neutrophils # (Auto) (test code = 751-8) 3.2 2.1-6.9 [facility] HospitalLymphocytes # (Auto)2019-10-23 06:07:00* Test Item Value Reference Range Interpretation Comments Lymphocytes # (Auto) (test code = 32621-0) 0.5 1.0-3.2 L [facility] HospitalMonocytes # (Auto)2019-10-23 06:07:00* Test Item Value Reference Range Interpretation Comments Monocytes # (Auto) (test code = 742-7) 0.4 0.2-0.8 [facility] HospitalEosinophils # (Auto)2019-10-23 06:07:00* Test Item Value Reference Range Interpretation Comments Eosinophils # (Auto) (test code = 711-2) 0.1 0.0-0.4 [facility] HospitalBasophils # (Auto)2019-10-23 06:07:00* Test Item Value Reference Range Interpretation Comments Basophils # (Auto) (test code = 704-7) 0.0 0.0-0.1 [facility] HospitalAbsolute Immature Granulocyte (auto 2019-10-23 06:07:00* Test Item Value Reference Range Interpretation Comments Absolute Immature Granulocyte (auto (rupinder t code = Absolute Immature Granulocyte (auto) 0.02 0-0.1 [facility] HospitalBlood leukocytes automated count (number/volume)2019-10-23 05:20:00* Test Item Value Reference Range Interpretation Comments White Blood Count (test code = 6690-2) 4.19 4.8-10.8 [facility]Blpay[facility] erythrocytes automated count (number/volume)2019-10-23 05:20:00* Test Item Value Reference Range Interpretation Comments Red Blood Count (test code = 789-8) 2.55 4.3-5.7 [facility] HospitalBlood hemoglobin measurement (moles/volume)2019-10-23 05:20:00* Test Item Value Reference Range Interpretation Comments Hemoglobin (test code = 29911-9) 8.3 14.0-18.0 [facility] HospitalAutomated blood hematocrit (volume fraction)2019-10-23 05:20:00* Test Item Value Reference Range Interpretation Comments Hematocrit (test code = 4544-3) 25.0 38.2-49.6 [facility] HospitalAutomated erythrocyte mean corpuscular ukbfeu4470-55-68 05:20:00* Test Item Value Reference Range Interpretation Comments Mean Corpuscular Volume (test code = 787-2) 98.0 81-99 [facility] HospitalAutomated erythrocyte mean corpuscular hemoglobin (mass per erythrocyte)2019-10-23 05:20:00* Test Item Value Reference Range Interpretation Comments Mean Corpuscular Hemoglobin (test code = 785-6) 32.5 28-32 [facility] HospitalAutomated erythrocyte mean corpuscular hemoglobin concentration measurement (mass/volume)2019-10-23 05:20:00* Test Item Value Reference Range Interpretation Comments Mean Corpuscular Hemoglobin Concent (test code = 786-4) 33.2 31-35 [facility] HospitalRDW RdpSs-Ocn4045-96-25 05:20:00* Test Item Value Reference Range Interpretation Comments Red Cell Distribution Width (test code = 06756-2) 17.8 11.7 -14.4 [facility] HospitalAutomated blood platelet count (count/volume)2019-10-23 05:20:00* Test Item Value Reference Range Interpretation Comments Platelet Count (test code = 777-3) 86 140-360 [facility] HospitalAutomated blood segmented neutrophil count as percentage of total cavpkdxjbf7016-68-37 05:20:00* Test Item Value Reference Range Interpretation Comments Neutrophils (%) (Auto) (test code = 30340-0) 76.2 38.7-80.0 [facility] HospitalAutomated blood lymphocyte count as percentage ot total eilmahdazs3110-01-48 05:20:00* Test Item Value Reference Range Interpretation Comments Lymphocytes (%) (Auto) (test code = 736-9) 12.6 18.0-39.1 [facility] HospitalAutomated blood monocyte count as percentage of total xojfizkwwa1710-09-97 05:20:00* Test Item Value Reference Range Interpretation Comments Monocytes (%) (Auto) (test code = 5905-5) 8.6 4.4-11.3 [facility] HospitalAutomated blood eosinophil count as percentage of total pnaoktvznj3643-13-65 05:20:00* Test Item Value Reference Range Interpretation Comments Eosinophils (%) (Auto) (test code = 713-8) 2.1 0.0-6.0 [facility] HospitalAutomated blood basophil count as percentage of total seynmrditn4224-48-26 05:20:00* Test Item Value Reference Range Interpretation Comments Basophils (%) (Auto) (test code = 706-2) 0.0 0.0-1.0 [facility] HospitalFluoroscopic procedure less than one hour xpmyoayl5403-24-18 05:20:00* Test Item Value Reference Range Interpretation Comments IM GRANULOCYTES % (test code = IM GRANULOCYTES %) 0.5 0.0- 1.0 [facility] HospitalAutomated blood neutrophil count 2019-10-23 05:20:00* Test Item Value Reference Range Interpretation Comments Neutrophils # (Auto) (test code = 751-8) 3.2 2.1-6.9 [facility] HospitalBlood lymphocytes count (number/volume) 2019-10-23 05:20:00* Test Item Value Reference Range Interpretation Comments Lymphocytes # (Auto) (test code = 72013-2) 0.5 1.0-3.2 [facility] HospitalBlood monocytes automated count (number/volume)2019-10-23 05:20:00* Test Item Value Reference Range Interpretation Comments Monocytes # (Auto) (test code = 742-7) 0.4 0.2-0.8 [facility] HospitalAutomated blood eosinophil count 2019-10-23 05:20:00* Test Item Value Reference Range Interpretation Comments Eosinophils # (Auto) (test code = 711-2) 0.1 0.0-0.4 [facility] HospitalAutomated blood basophil count (count/volume)2019-10-23 05:20:00* Test Item Value Reference Range Interpretation Comments Basophils # (Auto) (test code = 704-7) 0.0 0.0-0.1 [facility] HospitalFluoroscopic procedure less than one hour gvgueugi4577-07-39 05:20:00* Test Item Value Reference Range Interpretation Comments Absolute Immature Granulocyte (auto (rupinder t code = Absolute Immature Granulocyte (auto) 0.02 0-0.1 [facility] HospitalPlatelet ncdbdezkrs9839-24-81 05:20:00* Test Item Value Reference Range Interpretation Comments Platelet Morphology Comment (test code = 58267-9) See Comment NO EDTA PLT CLUMPS SEENLubbock [facility] & Surgical Hospitalerum or plasma sodium measurement (moles/volume)2019-10-23 05:20:00* Test Item Value Reference Range Interpretation Comments Sodium Level (test code = 2951-2) 133 136-145 [facility] Hospitalerum or plasma potassium measurement (moles/volume)2019-10-23 05:20:00* Test Item Value Reference Range Interpretation Comments Potassium Level (test code = 2823-3) 3.9 3.5-5.1 [facility] Hospitalerum or plasma chloride measurement (moles/volume)2019-10-23 05:20:00* Test Item Value Reference Range Interpretation Comments Chloride Level (test code = 2075-0) 100 98-107 [facility] Hospitalerum or plasma carbon dioxide, total measurement (moles/volume)2019-10-23 05:20:00* Test Item Value Reference Range Interpretation Comments Carbon Dioxide Level (test code = 2028-9) 24 22-29 [facility] Hospitalerum or plasma anion ata8382-23-20 05:20:00* Test Item Value Reference Range Interpretation Comments Anion Gap (test code = 73740-2) 12.9 8-16 [facility] Hospitalerum or plasma urea nitrogen measurement (mass/volume)2019-10-23 05:20:00* Test Item Value Reference Range Interpretation Comments Blood Urea Nitrogen (test code = 3094-0) 54 7-26 [facility] Hospitalerum or plasma creatinine measurement (mass/volume)2019-10-23 05:20:00* Test Item Value Reference Range Interpretation Comments Creatinine (test code = 2160-0) 4.25 0.72-1.25 [facility] Hospitalerum or plasma urea nitrogen/creatinine mass xvqot4188-62-31 05:20:00* Test Item Value Reference Range Interpretation Comments BUN/Creatinine Ratio (test code = 3097-3) 13 6-25 [facility] HospitalEstimated glomerular filtration rate (GFR) mywlrxknpectm4844-37-00 05:20:00* Test Item Value Reference Range Interpretation Comments Estimat Glomerular Filtration Rate (test code = 647592094) 15 >60 Ranges were taken from the National Kidney Disease Education Program and the [facility] literature.Reference ranges:60 or greater: Sltbxq61-21 ( for 3 consecutive months): Chronic kidney disease 15 or less: Kidney failureHouston Methodist HospitalGlucose mroppltajbt1177-18-41 05:20:00* Test Item Value Reference Range Interpretation Comments Glucose Level (test code = DDH2145) 158 74-118 [facility] Hospitalerum or plasma calcium measurement (mass/volume)2019-10-23 05:20:00* Test Item Value Reference Range Interpretation Comments Calcium Level (test code = 43441-5) 7.8 8.4-10.2 [facility] Hospitalerum or plasma total bilirubin measurement (mass/volume)2019-10-23 05:20:00* Test Item Value Reference Range Interpretation Comments Total Bilirubin (test code = 1975-2) 5.3 0.2-1.2 [facility] HospitalFluoroscopic procedure less than one hour urshltjc2449-69-70 05:20:00* Test Item Value Reference Range Interpretation Comments Aspartate Amino Transf (AST/SGOT) (test code = Aspartate Amino Transf (AST/SGOT)) 31 5-34 [facility] Hospitalerum or plasma alanine aminotransferase measurement (enzymatic activity/volume)2019-10-23 05:20:00* Test Item Value Reference Range Interpretation Comments Alanine Aminotransferase (ALT/SGPT) (test code = 1742-6) 36 0-55 [facility] Hospitalerum or plasma protein measurement (mass/volume)2019-10-23 05:20:00* Test Item Value Reference Range Interpretation Comments Total Protein (test code = 2885-2) 5.8 6.5-8.1 [facility] Hospitalerum or plasma albumin measurement (mass/volume)2019-10-23 05:20:00* Test Item Value Reference Range Interpretation Comments Albumin (test code = 1751-7) 2.2 3.5-5.0 [facility] HospitalPlasma globulin measurement (mass/volume) 2019-10-23 05:20:00* Test Item Value Reference Range Interpretation Comments Globulin (test code = 77136-6) 3.6 2.3-3.5 [facility] Hospitalerum or plasma albumin/globulin mass ymhxj4168-90-26 05:20:00* Test Item Value Reference Range Interpretation Comments Albumin/Globulin Ratio (test code = 1759-0) 0.6 0.8-2.0 [facility] Hospitalerum or plasma alkaline phosphatase measurement (enzymatic activity/volume)2019-10-23 05:20:00* Test Item Value Reference Range Interpretation Comments Alkaline Phosphatase (test code = 6768-6) 630 40-150 [facility] HospitalBlood leukocytes automated count (number/volume)2019-10-23 05:20:00* Test Item Value Reference Range Interpretation Comments White Blood Count (test code = 6690-2) 4.19 4.8-10.8 [facility] HospitalBlood erythrocytes automated count (number/volume)2019-10-23 05:20:00* Test Item Value Reference Range Interpretation Comments Red Blood Count (test code = 789-8) 2.55 4.3-5.7 [facility] HospitalBlood hemoglobin measurement (moles/volume)2019-10-23 05:20:00* Test Item Value Reference Range Interpretation Comments Hemoglobin (test code = 27490-1) 8.3 14.0-18.0 [facility] HospitalAutomated blood hematocrit (volume fraction)2019-10-23 05:20:00* Test Item Value Reference Range Interpretation Comments Hematocrit (test code = 4544-3) 25.0 38.2-49.6 [facility] HospitalAutomated erythrocyte mean corpuscular usqmeh5935-30-55 05:20:00* Test Item Value Reference Range Interpretation Comments Mean Corpuscular Volume (test code = 787-2) 98.0 81-99 [facility] HospitalAutomated erythrocyte mean corpuscular hemoglobin (mass per erythrocyte)2019-10-23 05:20:00* Test Item Value Reference Range Interpretation Comments Mean Corpuscular Hemoglobin (test code = 785-6) 32.5 28-32 [facility] HospitalAutomated erythrocyte mean corpuscular hemoglobin concentration measurement (mass/volume)2019-10-23 05:20:00* Test Item Value Reference Range Interpretation Comments Mean Corpuscular Hemoglobin Concent (test code = 786-4) 33.2 31-35 [facility] HospitalRDW GliJv-Rxe9342-97-25 05:20:00* Test Item Value Reference Range Interpretation Comments Red Cell Distribution Width (test code = 26002-7) 17.8 11.7 -14.4 [facility] HospitalAutomated blood platelet count (count/volume)2019-10-23 05:20:00* Test Item Value Reference Range Interpretation Comments Platelet Count (test code = 777-3) 86 140-360 [facility] HospitalAutselect [facility]boroed blood segmented neutrophil count as percentage of total bqfeaivqay7277-54-82 05:20:00* Test Item Value Reference Range Interpretation Comments Neutrophils (%) (Auto) (test code = 25013-7) 76.2 38.7-80.0 [facility] HospitalAutomated blood lymphocyte count as percentage ot total ninnagbthz2563-13-12 05:20:00* Test Item Value Reference Range Interpretation Comments Lymphocytes (%) (Auto) (test code = 736-9) 12.6 18.0-39.1 [facility] HospitalAutomated blood monocyte count as percentage of total owhvxlmuje9570-32-70 05:20:00* Test Item Value Reference Range Interpretation Comments Monocytes (%) (Auto) (test code = 5905-5) 8.6 4.4-11.3 [facility] HospitalAutomated blood eosinophil count as percentage of total ewnbfdours5290-97-61 05:20:00* Test Item Value Reference Range Interpretation Comments Eosinophils (%) (Auto) (test code = 713-8) 2.1 0.0-6.0 [facility] HospitalAutomated blood basophil count as percentage of total jecrslyhol6783-62-66 05:20:00* Test Item Value Reference Range Interpretation Comments Basophils (%) (Auto) (test code = 706-2) 0.0 0.0-1.0 [facility] HospitalFluoroscopic procedure less than one hour hiykzdpe9116-26-40 05:20:00* Test Item Value Reference Range Interpretation Comments IM GRANULOCYTES % (test code = IM GRANULOCYTES %) 0.5 0.0- 1.0 [facility] HospitalAutomated blood neutrophil count 2019-10-23 05:20:00* Test Item Value Reference Range Interpretation Comments Neutrophils # (Auto) (test code = 751-8) 3.2 2.1-6.9 [facility] HospitalBlood lymphocytes count (number/volume) 2019-10-23 05:20:00* Test Item Value Reference Range Interpretation Comments Lymphocytes # (Auto) (test code = 19931-0) 0.5 1.0-3.2 [facility] HospitalBlood monocytes automated count (number/volume)2019-10-23 05:20:00* Test Item Value Reference Range Interpretation Comments Monocytes # (Auto) (test code = 742-7) 0.4 0.2-0.8 [facility] HospitalAutomated blood eosinophil count 2019-10-23 05:20:00* Test Item Value Reference Range Interpretation Comments Eosinophils # (Auto) (test code = 711-2) 0.1 0.0-0.4 [facility] HospitalAutomated blood basophil count (count/volume)2019-10-23 05:20:00* Test Item Value Reference Range Interpretation Comments Basophils # (Auto) (test code = 704-7) 0.0 0.0-0.1 [facility] HospitalFluoroscopic procedure less than one hour yxkoybkl7944-00-28 05:20:00* Test Item Value Reference Range Interpretation Comments Absolute Immature Granulocyte (auto (rupinder t code = Absolute Immature Granulocyte (auto) 0.02 0-0.1 [facility] HospitalPlatelet egfkqutind7482-10-09 05:20:00* Test Item Value Reference Range Interpretation Comments Platelet Morphology Comment (test code = 97192-2) See Comment NO EDTA PLT CLUMPS SEENLubbock Heart & Surgical Hospitalerum or plasma sodium measurement (moles/volume)2019-10-23 05:20:00* Test Item Value Reference Range Interpretation Comments Sodium Level (test code = 2951-2) 133 136-145 [facility] Hospitalerum or plasma potassium measurement (moles/volume)2019-10-23 05:20:00* Test Item Value Reference Range Interpretation Comments Potassium Level (test code = 2823-3) 3.9 3.5-5.1 [facility] Hospitalerum or plasma chloride measurement (moles/volume)2019-10-23 05:20:00* Test Item Value Reference Range Interpretation Comments Chloride Level (test code = 2075-0) 100 98-107 [facility] Hospitalerum or plasma carbon dioxide, total measurement (moles/volume)2019-10-23 05:20:00* Test Item Value Reference Range Interpretation Comments Carbon Dioxide Level (test code = 2028-9) 24 22-29 [facility] Hospitalerum or plasma anion hiz5492-67-77 05:20:00* Test Item Value Reference Range Interpretation Comments Anion Gap (test code = 46996-8) 12.9 8-16 [facility] Hospitalerum or plasma urea nitrogen measurement (mass/volume)2019-10-23 05:20:00* Test Item Value Reference Range Interpretation Comments Blood Urea Nitrogen (test code = 3094-0) 54 7-26 [facility] Hospitalerum or plasma creatinine measurement (mass/volume)2019-10-23 05:20:00* Test Item Value Reference Range Interpretation Comments Creatinine (test code = 2160-0) 4.25 0.72-1.25 [facility] Hospitalerum or plasma urea nitrogen/creatinine mass vvizj2671-04-56 05:20:00* Test Item Value Reference Range Interpretation Comments BUN/Creatinine Ratio (test code = 3097-3) 13 6-25 [facility] HospitalEstimated glomerular filtration rate (GFR) uqxisvezztklx8097-84-45 05:20:00* Test Item Value Reference Range Interpretation Comments Estimat Glomerular Filtration Rate (test code = 876972440) 15 >60 Ranges were taken from the National Kidney Disease Education Program and the [facility] Foundation literature.Reference ranges:60 or greater: Aozflq21-72 ( for 3 consecutive months): Chronic kidney disease 15 or less: Kidney failureHouston Methodist HospitalGlucose xbxvywtqqji6513-89-01 05:20:00* Test Item Value Reference Range Interpretation Comments Glucose Level (test code = ORA1697) 158 74-118 [facility] Hospitalerum or plasma calcium measurement (mass/volume)2019-10-23 05:20:00* Test Item Value Reference Range Interpretation Comments Calcium Level (test code = 62247-5) 7.8 8.4-10.2 [facility] Hospitalerum or plasma total bilirubin measurement (mass/volume)2019-10-23 05:20:00* Test Item Value Reference Range Interpretation Comments Total Bilirubin (test code = 1975-2) 5.3 0.2-1.2 [facility] HospitalFluoroscopic procedure less than one hour vrcwaajc1570-66-45 05:20:00* Test Item Value Reference Range Interpretation Comments Aspartate Amino Transf (AST/SGOT) (test code = Aspartate Amino Transf (AST/SGOT)) 31 5-34 [facility] Hospitalerum or plasma alanine aminotransferase measurement (enzymatic activity/volume)2019-10-23 05:20:00* Test Item Value Reference Range Interpretation Comments Alanine Aminotransferase (ALT/SGPT) (test code = 1742-6) 36 0-55 [facility] Hospitalerum or plasma protein measurement (mass/volume)2019-10-23 05:20:00* Test Item Value Reference Range Interpretation Comments Total Protein (test code = 2885-2) 5.8 6.5-8.1 [facility] Hospitalerum or plasma albumin measurement (mass/volume)2019-10-23 05:20:00* Test Item Value Reference Range Interpretation Comments Albumin (test code = 1751-7) 2.2 3.5-5.0 [facility] HospitalPlasma globulin measurement (mass/volume) 2019-10-23 05:20:00* Test Item Value Reference Range Interpretation Comments Globulin (test code = 22711-2) 3.6 2.3-3.5 [facility] Hospitalerum or plasma albumin/globulin mass iebma8215-04-82 05:20:00* Test Item Value Reference Range Interpretation Comments Albumin/Globulin Ratio (test code = 1759-0) 0.6 0.8-2.0 [facility] Hospitalerum or plasma alkaline phosphatase measurement (enzymatic activity/volume)2019-10-23 05:20:00* Test Item Value Reference Range Interpretation Comments Alkaline Phosphatase (test code = 6768-6) 630 40-150 [facility] HospitalPlatelet jecrbcmpzq1922-48-31 05:20:00* Test Item Value Reference Range Interpretation Comments Platelet Morphology Comment (test code = 30177-7) See Comment NO EDTA PLT CLUMPS SEENLubbock Heart & Surgical Hospitalerum or plasma sodium measurement (moles/volume)2019-10-23 05:20:00* Test Item Value Reference Range Interpretation Comments Sodium Level (test code = 2951-2) 133 136-145 [facility] Hospitalerum or plasma potassium measurement (moles/volume)2019-10-23 05:20:00* Test Item Value Reference Range Interpretation Comments Potassium Level (test code = 2823-3) 3.9 3.5-5.1 [facility] Hospitalerum or plasma chloride measurement (moles/volume)2019-10-23 05:20:00* Test Item Value Reference Range Interpretation Comments Chloride Level (test code = 2075-0) 100 98-107 [facility] Hospitalerum or plasma carbon dioxide, total measurement (moles/volume)2019-10-23 05:20:00* Test Item Value Reference Range Interpretation Comments Carbon Dioxide Level (test code = 2028-9) 24 22-29 [facility] Hospitalerum or plasma anion jpj6311-39-85 05:20:00* Test Item Value Reference Range Interpretation Comments Anion Gap (test code = 99925-5) 12.9 8-16 [facility] Hospitalerum or plasma urea nitrogen measurement (mass/volume)2019-10-23 05:20:00* Test Item Value Reference Range Interpretation Comments Blood Urea Nitrogen (test code = 3094-0) 54 7-26 [facility] Hospitalerum or plasma creatinine measurement (mass/volume)2019-10-23 05:20:00* Test Item Value Reference Range Interpretation Comments Creatinine (test code = 2160-0) 4.25 0.72-1.25 [facility] Hospitalerum or plasma urea nitrogen/creatinine mass gjvfw3158-70-61 05:20:00* Test Item Value Reference Range Interpretation Comments BUN/Creatinine Ratio (test code = 3097-3) 13 6-25 [facility] HospitalEstimated glomerular filtration rate (GFR) udradlevrvhuc7725-29-69 05:20:00* Test Item Value Reference Range Interpretation Comments Estimat Glomerular Filtration Rate (test code = 367566244) 15 >60 Ranges were taken from the National Kidney Disease Education Program and the [facility] literature.Reference ranges:60 or greater: Tupbtq49-37 ( for 3 consecutive months): Chronic kidney disease 15 or less: Kidney failureHouston Methodist HospitalGlucose ejvsewalxkx4367-96-00 05:20:00* Test Item Value Reference Range Interpretation Comments Glucose Level (test code = PYZ9378) 158 74-118 [facility] Hospitalerum or plasma calcium measurement (mass/volume)2019-10-23 05:20:00* Test Item Value Reference Range Interpretation Comments Calcium Level (test code = 07886-0) 7.8 8.4-10.2 [facility] Hospitalerum or plasma total bilirubin measurement (mass/volume)2019-10-23 05:20:00* Test Item Value Reference Range Interpretation Comments Total Bilirubin (test code = 1975-2) 5.3 0.2-1.2 [facility] HospitalFluoroscopic procedure less than one hour qcaqtygh2693-31-70 05:20:00* Test Item Value Reference Range Interpretation Comments Aspartate Amino Transf (AST/SGOT) (test code = Aspartate Amino Transf (AST/SGOT)) 31 5-34 [facility] Hospitalerum or plasma alanine aminotransferase measurement (enzymatic activity/volume)2019-10-23 05:20:00* Test Item Value Reference Range Interpretation Comments Alanine Aminotransferase (ALT/SGPT) (test code = 1742-6) 36 0-55 [facility] Hospitalerum or plasma protein measurement (mass/volume)2019-10-23 05:20:00* Test Item Value Reference Range Interpretation Comments Total Protein (test code = 2885-2) 5.8 6.5-8.1 [facility] Hospitalerum or plasma albumin measurement (mass/volume)2019-10-23 05:20:00* Test Item Value Reference Range Interpretation Comments Albumin (test code = 1751-7) 2.2 3.5-5.0 [facility] HospitalPlasma globulin measurement (mass/volume) 2019-10-23 05:20:00* Test Item Value Reference Range Interpretation Comments Globulin (test code = 30855-1) 3.6 2.3-3.5 [facility] Hospitalerum or plasma albumin/globulin mass brfoy6372-03-33 05:20:00* Test Item Value Reference Range Interpretation Comments Albumin/Globulin Ratio (test code = 1759-0) 0.6 0.8-2.0 [facility] Hospitalerum or plasma alkaline phosphatase measurement (enzymatic activity/volume)2019-10-23 05:20:00* Test Item Value Reference Range Interpretation Comments Alkaline Phosphatase (test code = 6768-6) 630 40-150 [facility] HospitalPlatelet newdpcjggp9493-20-96 05:20:00* Test Item Value Reference Range Interpretation Comments Platelet Morphology Comment (test code = 73388-9) See Comment NO EDTA PLT CLUMPS SEENLubbock Heart & Surgical Hospitalerum or plasma sodium measurement (moles/volume)2019-10-23 05:20:00* Test Item Value Reference Range Interpretation Comments Sodium Level (test code = 2951-2) 133 136-145 [facility] Hospitalerum or plasma potassium measurement (moles/volume)2019-10-23 05:20:00* Test Item Value Reference Range Interpretation Comments Potassium Level (test code = 2823-3) 3.9 3.5-5.1 [facility] Hospitalerum or plasma chloride measurement (moles/volume)2019-10-23 05:20:00* Test Item Value Reference Range Interpretation Comments Chloride Level (test code = 2075-0) 100 98-107 [facility] Hospitalerum or plasma carbon dioxide, total measurement (moles/volume)2019-10-23 05:20:00* Test Item Value Reference Range Interpretation Comments Carbon Dioxide Level (test code = 2028-9) 24 22-29 [facility] Hospitalerum or plasma anion naa0654-89-93 05:20:00* Test Item Value Reference Range Interpretation Comments Anion Gap (test code = 11219-9) 12.9 8-16 [facility] Hospitalerum or plasma urea nitrogen measurement (mass/volume)2019-10-23 05:20:00* Test Item Value Reference Range Interpretation Comments Blood Urea Nitrogen (test code = 3094-0) 54 7-26 [facility] Hospitalerum or plasma creatinine measurement (mass/volume)2019-10-23 05:20:00* Test Item Value Reference Range Interpretation Comments Creatinine (test code = 2160-0) 4.25 0.72-1.25 [facility] Hospitalerum or plasma urea nitrogen/creatinine mass pmqmb2683-30-02 05:20:00* Test Item Value Reference Range Interpretation Comments BUN/Creatinine Ratio (test code = 3097-3) 13 6-25 [facility] HospitalEstimated glomerular filtration rate (GFR) vtdtamdhlaoxg6276-25-54 05:20:00* Test Item Value Reference Range Interpretation Comments Estimat Glomerular Filtration Rate (test code = 171604391) 15 >60 Ranges were taken from the National Kidney Disease Education Program and the [facility] [employer] literature.Reference ranges:60 or greater: Lfzbox42-36 ( for 3 consecutive months): Chronic kidney disease 15 or less: Kidney failureHouston Methodist HospitalGlucose nqgufrriobi0421-94-23 05:20:00* Test Item Value Reference Range Interpretation Comments Glucose Level (test code = BCK6800) 158 74-118 [facility] Hospitalerum or plasma calcium measurement (mass/volume)2019-10-23 05:20:00* Test Item Value Reference Range Interpretation Comments Calcium Level (test code = 59054-4) 7.8 8.4-10.2 [facility] Hospitalerum or plasma total bilirubin measurement (mass/volume)2019-10-23 05:20:00* Test Item Value Reference Range Interpretation Comments Total Bilirubin (test code = 1975-2) 5.3 0.2-1.2 [facility] HospitalFluoroscopic procedure less than one hour tpymxbxg5958-08-82 05:20:00* Test Item Value Reference Range Interpretation Comments Aspartate Amino Transf (AST/SGOT) (test code = Aspartate Amino Transf (AST/SGOT)) 31 5-34 [facility] Hospitalerum or plasma alanine aminotransferase measurement (enzymatic activity/volume)2019-10-23 05:20:00* Test Item Value Reference Range Interpretation Comments Alanine Aminotransferase (ALT/SGPT) (test code = 1742-6) 36 0-55 [facility] Hospitalerum or plasma protein measurement (mass/volume)2019-10-23 05:20:00* Test Item Value Reference Range Interpretation Comments Total Protein (test code = 2885-2) 5.8 6.5-8.1 [facility] Hospitalerum or plasma albumin measurement (mass/volume)2019-10-23 05:20:00* Test Item Value Reference Range Interpretation Comments Albumin (test code = 1751-7) 2.2 3.5-5.0 [facility] HospitalPlasma globulin measurement (mass/volume) 2019-10-23 05:20:00* Test Item Value Reference Range Interpretation Comments Globulin (test code = 29019-7) 3.6 2.3-3.5 [facility] Hospitalerum or plasma albumin/globulin mass tukpq3077-30-36 05:20:00* Test Item Value Reference Range Interpretation Comments Albumin/Globulin Ratio (test code = 1759-0) 0.6 0.8-2.0 [facility] Hospitalerum or plasma alkaline phosphatase measurement (enzymatic activity/volume)2019-10-23 05:20:00* Test Item Value Reference Range Interpretation Comments Alkaline Phosphatase (test code = 6768-6) 630 40-150 [facility] HospitalAlkaline Celrmvjbpey7074-99-76 03:42:00* Test Item Value Reference Range Interpretation Comments Alkaline Phosphatase (test code = 6768-6) 865 39-117 H [facility] HospitalAlkaline Phosphatase Iso-Intestine 2019-10-23 03:42:00* Test Item Value Reference Range Interpretation Comments Alkaline Phosphatase Iso-Intestine (test code = 66577-2) 0 0-18 Performed at: [facility] [address] [id number] Director: Roe Contreras MD, Phone: [phone] at: [facility] [address] [id number] Director: Dasha Lr MD, Ph one: [phone] Methodist HospitalAlkaline Phosphatase Vsm-Klih5603-44-25 03:42:00* Test Item Value Reference Range Interpretation Comments Alkaline Phosphatase Iso-Bone (test code = 04227-4) 21 12 -68 [facility] HospitalAlkaline Phosphatase Pdl-Pboqo7568-19-25 03:42:00* Test Item Value Reference Range Interpretation Comments Alkaline Phosphatase Iso-Liver (test code = 50130-9) 79 1 3-88 [facility] HospitalHepatitis Be Kbdnjrbb4850-48-90 22:13:00 * Test Item Value Reference Range Interpretation Comments Hepatitis Be Antibody (test code = 75426-0) Negative Negative Performed at: [facility] - [address] [id number] Lookback Coordinator: Dasha Lr MD, Phone: [phone] Methodist HospitalHepatitis B Core Total Eirblcpy1370-37-01 22:13:00* Test Item Value Reference Range Interpretation Comments Hepatitis B Core Total Antibody (test code = 72367-0) Negative Negative [facility]Hel[facility] B Surface Ktauilt4017-73-83 22:13:00* Test Item Value Reference Range Interpretation Comments Hepatitis B Surface Antigen (test code = 5196-1) Negative Negat [place] [facility] HospitalHel[facility] B Core IgM Skpymeki7305-81-53 22:13:00* Test Item Value Reference Range Interpretation Comments Hepatitis B Core IgM Antibody (test code = 85043-5) Negative Ne gative Performed at: - [facility] [id number] Director: Roe Contreras MD, Phone: [phone] Methodist HospitalAnti-Mitochondrial Sskpznkm7709-27-63 22:13:00* Test Item Value Reference Range Interpretation Comments Anti-Mitochondrial Antibody (test code = 19173-6) <20.0 0.0- 20.0 Negative 0.0 - 20.0 Equivocal 20.1 - 24.9 Positive > 24.9Mitochondrial (M2) Antibodies are found in 90-96% ofpatients with primary bi liary cirrhosis.Performed at: - [facility] [id number] Director: Dasha Lr MD, Phone: [phone] Methodist HospitalUS ABDOMEN JXQBEOO3640-01-40 08:51:00 [place] [address] Patient Name: VIOLETTE LAMB MR #: [id number] : 1965 Age/Sex: 54/M Req #: [id number] Adm Physician: PAWEL SALVADOR MD Ordered by: YAJAIRA GRAMAJO MD Report #: [id number] Location: MED/SURG2 Room/Bed: 214-1 Procedure: 032 4-0001 US/US ABDOMEN LIMITED Exam Date: 10/22/19 Josiah alicea Time: 744 REPORT STATUS: Signed TECHNIQUE: Grayscale ultrasound of [...] on 10/22/19857 COPY TO: YAJAIRA GRAMAJO MD Rdqep-1-Geentmzpbre 2019-10-21 15:56:00* Test Item Value Reference Range Interpretation Comments Vsauy-3-Xbrycykggfa (test code = 1825-9) 135 222-364 Performed at: [facility] [address] [place] [id number] 4Lab Director: RACHELLE Singh MD, Phone: [phone] Methodist HospitalCeruloplasmin2020-03-23 15:56:00* Test Item Value Reference Range Interpretation Comments Ceruloplasmin (test code = 2064-4) 41.0 16.0-31.0 H [facility] HospitalDirect Wztfhoqyd6751-69-60 06:00:00* Test Item Value Reference Range Interpretation Comments Direct Bilirubin (test code = 62044-9) 6.8 0.0-0.5 H [facility] Hospitalerum or plasma conjugated bilirubin measurement (mass/volume)2019-10-21 05:15:00* Test Item Value Reference Range Interpretation Comments Direct Bilirubin (test code = 49754-8) 6.8 0.0-0.5 [facility] Hospitalerum or plasma conjugated bilirubin measurement (mass/volume)2019-10-21 05:15:00* Test Item Value Reference Range Interpretation Comments Direct Bilirubin (test code = 64317-2) 6.8 0.0-0.5 [facility] Hospitalerum or plasma conjugated bilirubin measurement (mass/volume)2019-10-21 05:15:00* Test Item Value Reference Range Interpretation Comments Direct Bilirubin (test code = 35685-0) 6.8 0.0-0.5 [facility] Hospitalerum or plasma conjugated bilirubin measurement (mass/volume)2019-10-21 05:15:00* Test Item Value Reference Range Interpretation Comments Direct Bilirubin (test code = 12636-8) 6.8 0.0-0.5 [facility] HospitalBlood kfivden2637-96-38 11:35:00* Test Item Value Reference Range Interpretation Comments Blood Culture (test code = 69628548) NO GROWTH AFTER 5 DAYS, FINAL REPORT [facility] wakhfbj5138-60-32 11:35:00* Test Item Value Reference Range Interpretation Comments Blood Culture (test code = 28230256) NO GROWTH AFTER 5 DAYS, FINAL REPORT [facility] xfparub5598-04-32 11:35:00* Test Item Value Reference Range Interpretation Comments Blood Culture (test code = 01632842) NO GROWTH AFTER 5 DAYS, FINAL REPORT [facility] HospitalBlood zuiwmgy3424-93-77 11:35:00* Test Item Value Reference Range Interpretation Comments Blood Culture (test code = 03458575) NO GROWTH AFTER 5 DAYS, FINAL REPORT [facility] HospitalChlamydia pneumoniae DNA (PCR)2019-10-20 05:32:00* Test Item Value Reference Range Interpretation Comments Chlamydia pneumoniae DNA (PCR) (test code = Chlamydia pneumoniae DNA (PCR)) NOT DETECTED NOT DETECT [facility] HospitalInfluenza Type A (RT-PCR)2019-10-20 05:32:00* Test Item Value Reference Range Interpretation Comments Influenza Type A (RT-PCR) (test code = 143605544) NOT DETECTED NOT DETECT [facility] HospitalMycoplasma pneumoniae (PCR)2019-10-20 05:32:00* Test Item Value Reference Range Interpretation Comments Mycoplasma pneumoniae (PCR) (test code = Mycoplasma pn eumoniae (PCR)) NOT DETECTED NOT DETECT [facility] HospitalInfluenza Type B (RT-PCR)2019-10-20 05:32:00* Test Item Value Reference Range Interpretation Comments Influenza Type B (RT-PCR) (test code = 180014216) NOT DETECTED NOT DETECT [facility] HospitalRespiratory Syncytial Virus (PCR) 2019-10-20 05:32:00* Test Item Value Reference Range Interpretation Comments Respiratory Syncytial Virus (PCR) (test code = 829956175) NO T DETECTED NOT DETECT [facility] HospitalBordetella pertussis DNA (PCR)2019-10-20 05:32:00* Test Item Value Reference Range Interpretation Comments Bordetella pertussis DNA (PCR) (test code = 460200940) NOT DETEC SHAGGY NOT DETECT [facility] HospitalParainfluenza Type 1 (PCR)2019-10-20 05:32:00* Test Item Value Reference Range Interpretation Comments Parainfluenza Type 1 (PCR) (test code = 281086169) NOT DETECTED NOT DETECT [facility] HospitalParainfluenza Type 2 (PCR)2019-10-20 05:32:00* Test Item Value Reference Range Interpretation Comments Parainfluenza Type 2 (PCR) (test code = 008881737) NOT DETECTED NOT DETECT [facility] HospitalParainfluenza Type 3 (PCR)2019-10-20 05:32:00* Test Item Value Reference Range Interpretation Comments Parainfluenza Type 3 (PCR) (test code = 109036422) NOT DETECTED NOT DETECT [facility] HospitalParainfluenza Type 4 (PCR)2019-10-20 05:32:00* Test Item Value Reference Range Interpretation Comments Parainfluenza Type 4 (PCR) (test code = Parainfluenza Type 4 (PCR)) NOT DETECTED NOT DETECT [facility] HospitalRhinovirus (PCR)2019-10-20 05:32:00* Test Item Value Reference Range Interpretation Comments Rhinovirus (PCR) (test code = 980379198) NOT DETECTED NOT DETECT [facility] HospitalHusaint mary of the [facility] Metapneumovirus (PCR)2019-10-20 05:32:00* Test Item Value Reference Range Interpretation Comments Human Metapneumovirus (PCR) (test code = 743050345) DETECTED NO T DETECT ABNORMALCHI Methodist Mckinney HospitalAdenovirus (PCR)2019-10-20 05:32:00* Test Item Value Reference Range Interpretation Comments Adenovirus (PCR) (test code = 067684887) NOT DETECTED NOT DETECT [facility] HospitalCoronavirus Type HKU1 (PCR)2019-10-20 05:32:00* Test Item Value Reference Range Interpretation Comments Coronavirus Type HKU1 (PCR) (test code = Coronavirus T ype HKU1 (PCR)) NOT DETECTED NOT DETECT [facility] HospitalCoronavirus Type NL63 (PCR)2019-10-20 05:32:00* Test Item Value Reference Range Interpretation Comments Coronavirus Type NL63 (PCR) (test code = Coronavirus T ype NL63 (PCR)) NOT DETECTED NOT DETECT [facility] HospitalCoronavirus Type OC43 (PCR)2019-10-20 05:32:00* Test Item Value Reference Range Interpretation Comments Coronavirus Type OC43 (PCR) (test code = Coronavirus T ype OC43 (PCR)) NOT DETECTED NOT DETECT [facility] HospitalCoronavirus Type 229E (PCR)2019-10-20 05:32:00* Test Item Value Reference Range Interpretation Comments Coronavirus Type 229E (PCR) (test code = Coronavirus T ype 229E (PCR)) NOT DETECTED NOT DETECT Test performed at [facility], [place] [address]RESULTS HAVE BEEN CALLED TO THE PHYSICIANHouston Methodist HospitalCHEST SINGLE (PORTABLE)2019-10-19 10:26:00 [facility] [address] [place] [address] Patient Name: VIOLETTE LAMB MR #: [id number] : 1965 Age/Sex: 54/M Req #: [id number] Adm Physician: PAWEL SALVADOR MD Ordered by: PAWEL SALVADOR MD Report #: [id number] Location: [facility] Room/Bed: [place] [address] Procedure: 0321 -[id number] DX/CHEST SINGLE (PORTABLE) Exam [...] PAWEL SALVADOR MD Influenza Virus Types A,B Lnxfydw6439-32-49 09:17:00* Test Item Value Reference Range Interpretation Comments Influenza Virus Types A,B Antigen (test code = 85093-3) NEGATIVE NEGATIVE [facility] HospitalInfluenza virus A and B antigen identification by roxgxruhjpvguswmjs6663-54-79 08:45:00* Test Item Value Reference Range Interpretation Comments Influenza Virus Types A,B Antigen (test code = 23477-4) NEGATIVE NEGATIVE [facility] HospitalFluoroscopic procedure less than one hour juhnbsbd8246-64-36 08:45:00* Test Item Value Reference Range Interpretation Comments Chlamydia pneumoniae DNA (PCR) (test code = Chlamydia pneumoniae DNA (PCR)) NOT DETECTED NOT DETECT [facility] HospitalRespiratory virus ezghd6380-70-26 08:45:00* Test Item Value Reference Range Interpretation Comments Influenza Type A (RT-PCR) (test code = 943738462) NOT DETECTED NOT DETECT [facility] HospitalFluoroscopic procedure less than one hour mqksclnu9380-50-69 08:45:00* Test Item Value Reference Range Interpretation Comments Mycoplasma pneumoniae (PCR) (test code = Mycoplasma pn eumoniae (PCR)) NOT DETECTED NOT DETECT [facility] HospitalRespiratory virus ohirh0193-10-22 08:45:00* Test Item Value Reference Range Interpretation Comments Influenza Type B (RT-PCR) (test code = 266975868) NOT DETECTED NOT DETECT [facility] HospitalRespiratory virus grddk4369-71-01 08:45:00* Test Item Value Reference Range Interpretation Comments Respiratory Syncytial Virus (PCR) (test code = 639156289) NO T DETECTED NOT DETECT [facility] HospitalRespiratory virus ztknu5036-12-65 08:45:00* Test Item Value Reference Range Interpretation Comments Bordetella pertussis DNA (PCR) (test code = 946614041) NOT DETEC SHAGGY NOT DETECT [facility] HospitalRespiratory virus wxsmv3147-47-51 08:45:00* Test Item Value Reference Range Interpretation Comments Parainfluenza Type 1 (PCR) (test code = 859488225) NOT DETECTED NOT DETECT [facility] HospitalRespiratory virus ybhsn3981-68-56 08:45:00* Test Item Value Reference Range Interpretation Comments Parainfluenza Type 2 (PCR) (test code = 438753457) NOT DETECTED NOT DETECT [facility] HospitalRespiratory virus pxvvm1748-14-95 08:45:00* Test Item Value Reference Range Interpretation Comments Parainfluenza Type 3 (PCR) (test code = 484253558) NOT DETECTED NOT DETECT [facility] HospitalFluoroscopic procedure less than one hour emyzfxth3500-84-10 08:45:00* Test Item Value Reference Range Interpretation Comments Parainfluenza Type 4 (PCR) (test code = Parainfluenza Type 4 (PCR)) NOT DETECTED NOT DETECT [facility] HospitalRespiratory virus bebdl4822-54-53 08:45:00* Test Item Value Reference Range Interpretation Comments Rhinovirus (PCR) (test code = 512502099) NOT DETECTED NOT DETECT [facility] HospitalRespiratory virus orgoh7621-39-52 08:45:00* Test Item Value Reference Range Interpretation Comments Human Metapneumovirus (PCR) (test code = 156721686) DETECTED NO T DETECT ABNORMALCHI Methodist Mckinney HospitalRespiratory virus adtqn8918-83-43 08:45:00* Test Item Value Reference Range Interpretation Comments Adenovirus (PCR) (test code = 400660769) NOT DETECTED NOT DETECT [facility] HospitalFluoroscopic procedure less than one hour xscneoar3759-06-41 08:45:00* Test Item Value Reference Range Interpretation Comments Coronavirus Type 229E (PCR) (test code = Coronavirus T ype 229E (PCR)) NOT DETECTED NOT DETECT Test performed at [place] [address]RESULTS HAVE BEEN CALLED TO THE PHYSICIANHouston Methodist HospitalFluoroscopic procedure less than one hour vzmbeirg7598-50-65 08:45:00* Test Item Value Reference Range Interpretation Comments Coronavirus Type HKU1 (PCR) (test code = Coronavirus T ype HKU1 (PCR)) NOT DETECTED NOT DETECT [facility] HospitalFluoroscopic procedure less than one hour eryedbui8203-83-97 08:45:00* Test Item Value Reference Range Interpretation Comments Coronavirus Type NL63 (PCR) (test code = Coronavirus T ype NL63 (PCR)) NOT DETECTED NOT DETECT [facility] HospitalFluoroscopic procedure less than one hour qpfspzyh4110-34-57 08:45:00* Test Item Value Reference Range Interpretation Comments Coronavirus Type OC43 (PCR) (test code = Coronavirus T ype OC43 (PCR)) NOT DETECTED NOT DETECT [facility] HospitalInfluenza virus A and B antigen identification by pevtasjjfthnnmxemx5284-14-03 08:45:00* Test Item Value Reference Range Interpretation Comments Influenza Virus Types A,B Antigen (test code = 31442-0) NEGATIVE NEGATIVE [facility] HospitalFluoroscopic procedure less than one hour rjweuuab7095-76-50 08:45:00* Test Item Value Reference Range Interpretation Comments Chlamydia pneumoniae DNA (PCR) (test code = Chlamydia pneumoniae DNA (PCR)) NOT DETECTED NOT DETECT [facility] HospitalRespiratory virus fukip1773-16-76 08:45:00* Test Item Value Reference Range Interpretation Comments Influenza Type A (RT-PCR) (test code = 379357432) NOT DETECTED NOT DETECT [facility] HospitalFluoroscopic procedure less than one hour reroiykx1630-71-75 08:45:00* Test Item Value Reference Range Interpretation Comments Mycoplasma pneumoniae (PCR) (test code = Mycoplasma pn eumoniae (PCR)) NOT DETECTED NOT DETECT [facility] HospitalRespiratory virus lxdma8055-53-84 08:45:00* Test Item Value Reference Range Interpretation Comments Influenza Type B (RT-PCR) (test code = 126902041) NOT DETECTED NOT DETECT [facility] HospitalRespiratory virus ceiip7955-58-13 08:45:00* Test Item Value Reference Range Interpretation Comments Respiratory Syncytial Virus (PCR) (test code = 218388874) NO T DETECTED NOT DETECT [facility] HospitalRespiratory virus nzrgk6006-81-39 08:45:00* Test Item Value Reference Range Interpretation Comments Bordetella pertussis DNA (PCR) (test code = 715018538) NOT DETEC SHAGGY NOT DETECT [facility] HospitalRespiratory virus xiykz6378-34-42 08:45:00* Test Item Value Reference Range Interpretation Comments Parainfluenza Type 1 (PCR) (test code = 909906884) NOT DETECTED NOT DETECT [facility] virus nsdaa7988-06-18 08:45:00* Test Item Value Reference Range Interpretation Comments Parainfluenza Type 2 (PCR) (test code = 816428753) NOT DETECTED NOT DETECT [facility] kxcbg5793-24-76 08:45:00* Test Item Value Reference Range Interpretation Comments Parainfluenza Type 3 (PCR) (test code = 069347568) NOT DETECTED NOT DETECT [facility]Fluoroscopic procedure less than one hour yzyltvts8093-33-35 08:45:00* Test Item Value Reference Range Interpretation Comments Parainfluenza Type 4 (PCR) (test code = Parainfluenza Type 4 (PCR)) NOT DETECTED NOT DETECT [facility] HospitalRespiratory virus heeiw9318-75-40 08:45:00* Test Item Value Reference Range Interpretation Comments Rhinovirus (PCR) (test code = 191343079) NOT DETECTED NOT DETECT [facility]Res[facility] virus xvnbt3592-69-48 08:45:00* Test Item Value Reference Range Interpretation Comments Human Metapneumovirus (PCR) (test code = 192191096) DETECTED NO T DETECT ABNORMALCHI Methodist Mckinney HospitalRespiratory virus lscrp7840-08-52 08:45:00* Test Item Value Reference Range Interpretation Comments Adenovirus (PCR) (test code = 110563656) NOT DETECTED NOT DETECT [facility] HospitalFluoroscopic procedure less than one hour zzpumkne7950-10-19 08:45:00* Test Item Value Reference Range Interpretation Comments Coronavirus Type 229E (PCR) (test code = Coronavirus T ype 229E (PCR)) NOT DETECTED NOT DETECT Test performed at [facility] [place] [address]RESULTS HAVE BEEN CALLED TO THE PHYSICIANCHI Methodist Mckinney HospitalFluoroscopic procedure less than one hour mmymtkso9644-36-35 08:45:00* Test Item Value Reference Range Interpretation Comments Coronavirus Type HKU1 (PCR) (test code = Coronavirus T ype HKU1 (PCR)) NOT DETECTED NOT DETECT [facility] HospitalFluoroscopic procedure less than one hour lveiancj1805-89-68 08:45:00* Test Item Value Reference Range Interpretation Comments Coronavirus Type NL63 (PCR) (test code = Coronavirus T ype NL63 (PCR)) NOT DETECTED NOT DETECT [facility] HospitalFluoroscopic procedure less than one hour ibilzzoe4423-46-08 08:45:00* Test Item Value Reference Range Interpretation Comments Coronavirus Type OC43 (PCR) (test code = Coronavirus T ype OC43 (PCR)) NOT DETECTED NOT DETECT [facility] HospitalInfluenza virus A and B antigen identification by ibhpcawuomkvcvwbqj6880-05-70 08:45:00* Test Item Value Reference Range Interpretation Comments Influenza Virus Types A,B Antigen (test code = 95414-2) NEGATIVE NEGATIVE [facility] HospitalFluoroscopic procedure less than one hour rzkdekhz0185-77-28 08:45:00* Test Item Value Reference Range Interpretation Comments Chlamydia pneumoniae DNA (PCR) (test code = Chlamydia pneumoniae DNA (PCR)) NOT DETECTED NOT DETECT [facility] HospitalRespiratory virus jocka9912-82-76 08:45:00* Test Item Value Reference Range Interpretation Comments Influenza Type A (RT-PCR) (test code = 765047188) NOT DETECTED NOT DETECT [facility] HospitalFluoroscopic procedure less than one hour dmqclxsc9498-42-33 08:45:00* Test Item Value Reference Range Interpretation Comments Mycoplasma pneumoniae (PCR) (test code = Mycoplasma pn eumoniae (PCR)) NOT DETECTED NOT DETECT [facility] rxnbi3649-82-21 08:45:00* Test Item Value Reference Range Interpretation Comments Influenza Type B (RT-PCR) (test code = 838718226) NOT DETECTED NOT DETECT [facility]Res[facility] hqqbv9217-33-69 08:45:00* Test Item Value Reference Range Interpretation Comments Respiratory Syncytial Virus (PCR) (test code = 393120875) NO T DETECTED NOT DETECT [facility] ncadb8420-76-28 08:45:00* Test Item Value Reference Range Interpretation Comments Bordetella pertussis DNA (PCR) (test code = 367191760) NOT DETEC SHAGGY NOT DETECT [facility]Res[facility] virus bbsiz9232-79-88 08:45:00* Test Item Value Reference Range Interpretation Comments Parainfluenza Type 1 (PCR) (test code = 100789478) NOT DETECTED NOT DETECT [facility] kdwmb4146-20-93 08:45:00* Test Item Value Reference Range Interpretation Comments Parainfluenza Type 2 (PCR) (test code = 306021821) NOT DETECTED NOT DETECT [facility] virus auyen5153-86-80 08:45:00* Test Item Value Reference Range Interpretation Comments Parainfluenza Type 3 (PCR) (test code = 519389062) NOT DETECTED NOT DETECT [facility] HospitalFluoroscopic procedure less than one hour iaxrnhat4724-04-66 08:45:00* Test Item Value Reference Range Interpretation Comments Parainfluenza Type 4 (PCR) (test code = Parainfluenza Type 4 (PCR)) NOT DETECTED NOT DETECT [facility]Res[facility] virus msork6154-47-85 08:45:00* Test Item Value Reference Range Interpretation Comments Rhinovirus (PCR) (test code = 428201299) NOT DETECTED NOT DETECT [facility]Res[facility] virus cqzcl9938-61-82 08:45:00* Test Item Value Reference Range Interpretation Comments Human Metapneumovirus (PCR) (test code = 964624715) DETECTED NO T DETECT ABNORMAL[facility] HospitalRespiratory virus tvogy5490-64-88 08:45:00* Test Item Value Reference Range Interpretation Comments Adenovirus (PCR) (test code = 892590625) NOT DETECTED NOT DETECT [facility] HospitalFluoroscopic procedure less than one hour zesqlrar4278-73-37 08:45:00* Test Item Value Reference Range Interpretation Comments Coronavirus Type 229E (PCR) (test code = Coronavirus T ype 229E (PCR)) NOT DETECTED NOT DETECT Test performed at [place] [address]RESULTS HAVE BEEN CALLED TO THE PHYSICIANHouston [facility] HospitalFluoroscopic procedure less than one hour mecabvqm6467-16-08 08:45:00* Test Item Value Reference Range Interpretation Comments Coronavirus Type HKU1 (PCR) (test code = Coronavirus T ype HKU1 (PCR)) NOT DETECTED NOT DETECT [facility] HospitalFluoroscopic procedure less than one hour adjqvaaf2409-69-34 08:45:00* Test Item Value Reference Range Interpretation Comments Coronavirus Type NL63 (PCR) (test code = Coronavirus T ype NL63 (PCR)) NOT DETECTED NOT DETECT [facility] HospitalFluoroscopic procedure less than one hour wtdvxczg3974-73-93 08:45:00* Test Item Value Reference Range Interpretation Comments Coronavirus Type OC43 (PCR) (test code = Coronavirus T ype OC43 (PCR)) NOT DETECTED NOT DETECT [facility] HospitalInfluenza virus A and B antigen identification by nfxcyfqayqmmgrqwgv4147-37-96 08:45:00* Test Item Value Reference Range Interpretation Comments Influenza Virus Types A,B Antigen (test code = 42937-9) NEGATIVE NEGATIVE [facility] HospitalFluoroscopic procedure less than one hour gbvrezhx0773-41-83 08:45:00* Test Item Value Reference Range Interpretation Comments Chlamydia pneumoniae DNA (PCR) (test code = Chlamydia pneumoniae DNA (PCR)) NOT DETECTED NOT DETECT [facility] HospitalRespiratory virus rxqno8824-79-74 08:45:00* Test Item Value Reference Range Interpretation Comments Influenza Type A (RT-PCR) (test code = 684504497) NOT DETECTED NOT DETECT [facility] HospitalFluoroscopic procedure less than one hour htzqzyss2358-01-73 08:45:00* Test Item Value Reference Range Interpretation Comments Mycoplasma pneumoniae (PCR) (test code = Mycoplasma pn eumoniae (PCR)) NOT DETECTED NOT DETECT [facility] HospitalRespiratory virus ygenu8432-38-10 08:45:00* Test Item Value Reference Range Interpretation Comments Influenza Type B (RT-PCR) (test code = 228297954) NOT DETECTED NOT DETECT [facility] HospitalRespiratory virus dkdzu5686-65-07 08:45:00* Test Item Value Reference Range Interpretation Comments Respiratory Syncytial Virus (PCR) (test code = 956626908) NO T DETECTED NOT DETECT [facility]Res[facility] virus kxdme8785-67-44 08:45:00* Test Item Value Reference Range Interpretation Comments Bordetella pertussis DNA (PCR) (test code = 250375116) NOT DETEC SHAGGY NOT DETECT [facility]Res[facility] virus wotzd6932-42-93 08:45:00* Test Item Value Reference Range Interpretation Comments Parainfluenza Type 1 (PCR) (test code = 588328275) NOT DETECTED NOT DETECT [facility]Res[facility] virus vfima3635-93-50 08:45:00* Test Item Value Reference Range Interpretation Comments Parainfluenza Type 2 (PCR) (test code = 026002278) NOT DETECTED NOT DETECT [facility]Respiratory virus ypimw6511-47-38 08:45:00* Test Item Value Reference Range Interpretation Comments Parainfluenza Type 3 (PCR) (test code = 903850993) NOT DETECTED NOT DETECT [facility] HospitalFluoroscopic procedure less than one hour cesztcxj7910-89-50 08:45:00* Test Item Value Reference Range Interpretation Comments Parainfluenza Type 4 (PCR) (test code = Parainfluenza Type 4 (PCR)) NOT DETECTED NOT DETECT [facility]Respiratory virus qmgqg0626-70-68 08:45:00* Test Item Value Reference Range Interpretation Comments Rhinovirus (PCR) (test code = 445838613) NOT DETECTED NOT DETECT [facility] HospitalRespiratory virus izuiq9954-80-19 08:45:00* Test Item Value Reference Range Interpretation Comments Human Metapneumovirus (PCR) (test code = 916699777) DETECTED NO T DETECT ABNORMALHouston [facility] HospitalRespiratory virus ehxca8340-93-23 08:45:00* Test Item Value Reference Range Interpretation Comments Adenovirus (PCR) (test code = 308677050) NOT DETECTED NOT DETECT [facility] HospitalFluoroscopic procedure less than one hour lapzvzxb0276-96-23 08:45:00* Test Item Value Reference Range Interpretation Comments Coronavirus Type 229E (PCR) (test code = Coronavirus T ype 229E (PCR)) NOT DETECTED NOT DETECT Test performed at [place] [address] 4320RESULTS HAVE BEEN CALLED TO THE PHYSICIANHouston [facility] HospitalFluoroscopic procedure less than one hour eoeqmaqw1356-38-52 08:45:00* Test Item Value Reference Range Interpretation Comments Coronavirus Type HKU1 (PCR) (test code = Coronavirus T ype HKU1 (PCR)) NOT DETECTED NOT DETECT [facility] HospitalFluoroscopic procedure less than one hour zxutzxsn0134-55-71 08:45:00* Test Item Value Reference Range Interpretation Comments Coronavirus Type NL63 (PCR) (test code = Coronavirus T ype NL63 (PCR)) NOT DETECTED NOT DETECT [facility] HospitalFluoroscopic procedure less than one hour lomwvkce4233-67-40 08:45:00* Test Item Value Reference Range Interpretation Comments Coronavirus Type OC43 (PCR) (test code = Coronavirus T ype OC43 (PCR)) NOT DETECTED NOT DETECT [facility] HospitalDifferential Total Cells Counted 2019-10-19 08:02:00* Test Item Value Reference Range Interpretation Comments Differential Total Cells Counted (test code = Differen tial Total Cells Counted) 100 [facility] HospitalNeutrophils % (Manual)2019-10-19 08:02:00 * Test Item Value Reference Range Interpretation Comments Neutrophils % (Manual) (test code = 52627-5) 83 40-74 H [facility] HospitalLymphocytes % (Manual)2019-10-19 08:02:00 * Test Item Value Reference Range Interpretation Comments Lymphocytes % (Manual) (test code = 737-7) 6 19-48 L [facility] HospitalMonocytes % (Manual)2019-10-19 08:02:00* Test Item Value Reference Range Interpretation Comments Monocytes % (Manual) (test code = 744-3) 6 3.4-9.0 [facility] HospitalEosinophils % (Manual)2019-10-19 08:02:00 * Test Item Value Reference Range Interpretation Comments Eosinophils % (Manual) (test code = 714-6) 3 0-7 [facility] HospitalBasophils % (Manual)2019-10-19 08:02:00* Test Item Value Reference Range Interpretation Comments Basophils % (Manual) (test code = 62176-2) 1 0-1.5 [facility] HospitalMyelocytes %2019-10-19 08:02:00* Test Item Value Reference Range Interpretation Comments Myelocytes % (test code = 749-2) 1 0-0 H [facility] HospitalPlatelet Xpihtraj9865-82-96 08:02:00* Test Item Value Reference Range Interpretation Comments Platelet Estimate (test code = 42946-5) MODERATELY DECREASED [facility] HospitalAnisocytosis2020-03-21 08:02:00* Test Item Value Reference Range Interpretation Comments Anisocytosis (test code = 702-1) MODE [facility] HospitalMacrocytosis2020-03-21 08:02:00* Test Item Value Reference Range Interpretation Comments Macrocytosis (test code = 738-5) SLIGHT [facility] HospitalRed Cell Morphology Rwvkmnv0708-87-16 08:02:00* Test Item Value Reference Range Interpretation Comments Red Cell Morphology Comment (test code = 6742-1) ABNORMAL [facility] HospitalProthrombin Cama6731-46-01 06:23:00* Test Item Value Reference Range Interpretation Comments Prothrombin Time (test code = 5902-2) 13.8 11.9-14.5 [facility] HospitalProthromb Time International Ratio 2019-10-19 06:23:00* Test Item Value Reference Range Interpretation Comments Prothromb Time International Ratio (test code = 6301-6) 1.00 Oral Anticoagulant Therapy INR Values:1. Low Intensity Therapy 1.5 - 2.02 . Moderate Intensity Therapy 2.0 - 3.03. High Intensity Therapy(1) 2.5 - 3. 54. High Intensity Therapy(2) 3.0 - 4.05. Panic Value INR > 5.0 [facility] HospitalCHES SINGLE (PORTABLE)2019-10-19 06:04:00 [facility] [address] [place] [address] Patient Name: VIOLETTE LAMB MR #: [id number] : 1965 Age/Sex: 54/M Req #: [id number] Adm Physician: PAWEL SALVADOR MD Ordered by: PAWEL SALVADOR MD Report #: [id number] Location: MED/SURG Room/Bed: [facility] Procedure: [id number] -[id number] DX/CHEST SINGLE (PORTABLE) [...] MD Fluoroscopic procedure less than one hour caefgrgw6477-59-42 05:30:00* Test Item Value Reference Range Interpretation Comments Differential Total Cells Counted (test code = Differherbert tial Total Cells Counted) 100 [facility] blood neutrophils/100 leukocytes 2019-10-19 05:30:00* Test Item Value Reference Range Interpretation Comments Neutrophils % (Manual) (test code = 95146-8) 83 40-74 [facility] blood lymphocytes/100 leukocytes 2019-10-19 05:30:00* Test Item Value Reference Range Interpretation Comments Lymphocytes % (Manual) (test code = 737-7) 6 19-48 [facility] blood monocytes/100 leukocytes 2019-10-19 05:30:00* Test Item Value Reference Range Interpretation Comments Monocytes % (Manual) (test code = 744-3) 6 3.4-9.0 [facility] blood eosinophil count as percentage of total yjrgiqpxxu3512-51-23 05:30:00* Test Item Value Reference Range Interpretation Comments Eosinophils % (Manual) (test code = 714-6) 3 0-7 [facility] zkolgsrhuu3472-47-45 05:30:00* Test Item Value Reference Range Interpretation Comments Basophils % (Manual) (test code = 40092-6) 1 0-1.5 [facility] blood myelocytes/100 leukocytes 2019-10-19 05:30:00* Test Item Value Reference Range Interpretation Comments Myelocytes % (test code = 749-2) 1 0-0 [facility] platelets count by estimate (number/volume)2019-10-19 05:30:00* Test Item Value Reference Range Interpretation Comments Platelet Estimate (test code = 88318-0) MODERATELY DECREASED [facility] HospitalBlood anisocytosis detection by light jfgfkbmgjs9465-47-10 05:30:00* Test Item Value Reference Range Interpretation Comments Anisocytosis (test code = 702-1) MODE [facility]Bl[facility] macrocytes detection by light vmskfbjyvv8396-37-14 05:30:00* Test Item Value Reference Range Interpretation Comments Macrocytosis (test code = 738-5) SLIGHT [facility] HospitalRBC xkpwktplpi6030-60-76 05:30:00* Test Item Value Reference Range Interpretation Comments Red Cell Morphology Comment (test code = 6742-1) ABNORMAL [facility] HospitalFluoroscopic procedure less than one hour ixsndgsl0632-04-39 05:30:00* Test Item Value Reference Range Interpretation Comments Differential Total Cells Counted (test code = Differherbert tial Total Cells Counted) 100 [facility] blood neutrophils/100 leukocytes 2019-10-19 05:30:00* Test Item Value Reference Range Interpretation Comments Neutrophils % (Manual) (test code = 81809-0) 83 40-74 [facility] blood lymphocytes/100 leukocytes 2019-10-19 05:30:00* Test Item Value Reference Range Interpretation Comments Lymphocytes % (Manual) (test code = 737-7) 6 19-48 [facility] blood monocytes/100 leukocytes 2019-10-19 05:30:00* Test Item Value Reference Range Interpretation Comments Monocytes % (Manual) (test code = 744-3) 6 3.4-9.0 [facility] blood eosinophil count as percentage of total duvrpjkofw8221-45-20 05:30:00* Test Item Value Reference Range Interpretation Comments Eosinophils % (Manual) (test code = 714-6) 3 0-7 [facility] basophil enodtwmoxb7385-95-50 05:30:00* Test Item Value Reference Range Interpretation Comments Basophils % (Manual) (test code = 32531-9) 1 0-1.5 [facility] blood myelocytes/100 leukocytes 2019-10-19 05:30:00* Test Item Value Reference Range Interpretation Comments Myelocytes % (test code = 749-2) 1 0-0 [facility] platelets count by estimate (number/volume)2019-10-19 05:30:00* Test Item Value Reference Range Interpretation Comments Platelet Estimate (test code = 05611-8) MODERATELY DECREASED [facility] anisocytosis detection by light pxtliddbfi8942-01-61 05:30:00* Test Item Value Reference Range Interpretation Comments Anisocytosis (test code = 702-1) MODE [facility] macrocytes detection by light qfpzjlegve3730-72-74 05:30:00* Test Item Value Reference Range Interpretation Comments Macrocytosis (test code = 738-5) SLIGHT [facility] HospitalRB uggqaumkmn0447-84-23 05:30:00* Test Item Value Reference Range Interpretation Comments Red Cell Morphology Comment (test code = 6742-1) ABNORMAL [facility] HospitalFluoroscopic procedure less than one hour ujaszumf1705-51-68 05:30:00* Test Item Value Reference Range Interpretation Comments Differential Total Cells Counted (test code = Differherbert tial Total Cells Counted) 100 [facility] blood neutrophils/100 leukocytes 2019-10-19 05:30:00* Test Item Value Reference Range Interpretation Comments Neutrophils % (Manual) (test code = 18776-0) 83 40-74 [facility] blood lymphocytes/100 leukocytes 2019-10-19 05:30:00* Test Item Value Reference Range Interpretation Comments Lymphocytes % (Manual) (test code = 737-7) 6 19-48 [facility] blood monocytes/100 leukocytes 2019-10-19 05:30:00* Test Item Value Reference Range Interpretation Comments Monocytes % (Manual) (test code = 744-3) 6 3.4-9.0 [facility] blood eosinophil count as percentage of total pnwuwsxdkt8856-28-91 05:30:00* Test Item Value Reference Range Interpretation Comments Eosinophils % (Manual) (test code = 714-6) 3 0-7 [facility] basophil pctjhtiwyp5868-21-37 05:30:00* Test Item Value Reference Range Interpretation Comments Basophils % (Manual) (test code = 71664-2) 1 0-1.5 [facility] blood myelocytes/100 leukocytes 2019-10-19 05:30:00* Test Item Value Reference Range Interpretation Comments Myelocytes % (test code = 749-2) 1 0-0 [facility] platelets count by estimate (number/volume)2019-10-19 05:30:00* Test Item Value Reference Range Interpretation Comments Platelet Estimate (test code = 85627-0) MODERATELY DECREASED [facility] anisocytosis detection by light hjtbskhdtg2289-81-63 05:30:00* Test Item Value Reference Range Interpretation Comments Anisocytosis (test code = 702-1) MODE [facility] macrocytes detection by light haqrnjsmok1953-56-68 05:30:00* Test Item Value Reference Range Interpretation Comments Macrocytosis (test code = 738-5) SLIGHT [facility] HospitalRBC rkvzmxixhj0295-41-88 05:30:00* Test Item Value Reference Range Interpretation Comments Red Cell Morphology Comment (test code = 6742-1) ABNORMAL [facility] HospitalFluoroscopic procedure less than one hour rnfahmcn1004-86-18 05:30:00* Test Item Value Reference Range Interpretation Comments Differential Total Cells Counted (test code = Differen tial Total Cells Counted) 100 [facility] blood neutrophils/100 leukocytes 2019-10-19 05:30:00* Test Item Value Reference Range Interpretation Comments Neutrophils % (Manual) (test code = 55000-0) 83 40-74 [facility] blood lymphocytes/100 leukocytes 2019-10-19 05:30:00* Test Item Value Reference Range Interpretation Comments Lymphocytes % (Manual) (test code = 737-7) 6 19-48 [facility] blood monocytes/100 leukocytes 2019-10-19 05:30:00* Test Item Value Reference Range Interpretation Comments Monocytes % (Manual) (test code = 744-3) 6 3.4-[address] [facility] eosinophil count as percentage of total yhmxvbdtfv4424-76-59 05:30:00* Test Item Value Reference Range Interpretation Comments Eosinophils % (Manual) (test code = 714-6) 3 0-7 [facility] HospitalManual basophil ryufktohdn2026-80-00 05:30:00* Test Item Value Reference Range Interpretation Comments Basophils % (Manual) (test code = 26837-9) 1 0-1.5 [facility] myelocytes/100 leukocytes 2019-10-19 05:30:00* Test Item Value Reference Range Interpretation Comments Myelocytes % (test code = 749-2) 1 0-0 [facility] platelets count by estimate (number/volume)2019-10-19 05:30:00* Test Item Value Reference Range Interpretation Comments Platelet Estimate (test code = 10735-7) MODERATELY DECREASED [facility] anisocytosis detection by light siwjawtnvp0351-51-57 05:30:00* Test Item Value Reference Range Interpretation Comments Anisocytosis (test code = 702-1) MODE [facility] macrocytes detection by light jnlhsgxbmu1571-22-11 05:30:00* Test Item Value Reference Range Interpretation Comments Macrocytosis (test code = 738-5) SLIGHT [facility] HospitalRBC tnqbhftukt9242-56-68 05:30:00* Test Item Value Reference Range Interpretation Comments Red Cell Morphology Comment (test code = 6742-1) ABNORMAL [facility] HospitalProthrombin time (PT) in platelet poor plasma by coagulation cdmjf9586-10-19 05:25:00* Test Item Value Reference Range Interpretation Comments Prothrombin Time (test code = 5902-2) 13.8 11.9-14.5 [facility] HospitalINR in Platelet poor plasma by Coagulation caztv2889-80-00 05:25:00* Test Item Value Reference Range Interpretation Comments Prothromb Time International Ratio (test code = 6301-6) 1.00 Oral Anticoagulant Therapy INR Values:1. Low Intensity Therapy 1.5 - 2.02 . Moderate Intensity Therapy 2.0 - 3.03. High Intensity Therapy(1) 2.5 - 3. 54. High Intensity Therapy(2) 3.0 - 4.05. Panic Value INR > 5.0 [facility] HospitalProthrombin time (PT) in platelet poor plasma by coagulation lbxmt5877-21-43 05:25:00* Test Item Value Reference Range Interpretation Comments Prothrombin Time (test code = 5902-2) 13.8 11.9-14.5 [facility] HospitalINR in Platelet poor plasma by Coagulation xkccn4322-57-80 05:25:00* Test Item Value Reference Range Interpretation Comments Prothromb Time International Ratio (test code = 6301-6) 1.00 Oral Anticoagulant Therapy INR Values:1. Low Intensity Therapy 1.5 - 2.02 . Moderate Intensity Therapy 2.0 - 3.03. High Intensity Therapy(1) 2.5 - 3. 54. High Intensity Therapy(2) 3.0 - 4.05. Panic Value INR > 5.0 [facility] HospitalIndirect Ridxhcxak5731-58-13 03:39:00* Test Item Value Reference Range Interpretation Comments Indirect Bilirubin (test code = 1971-1) 2.9 0.3-1.2 H [facility] HospitalFerritin2020-03-20 23:10:00* Test Item Value Reference Range Interpretation Comments Ferritin (test code = 2276-4) > 2000.00 21.81-274.66 H [facility] HospitalVitamin B12 Ukizf3412-48-44 23:09:00* Test Item Value Reference Range Interpretation Comments Vitamin B12 Level (test code = 80592-0) 401 213-816 [facility] HospitalFolate2020-03-20 23:09:00* Test Item Value Reference Range Interpretation Comments Folate (test code = 2284-8) 9.5 7.0-15.4 [facility] HospitalPercent Reticulocyte Fyxke0242-29-23 22:26:00* Test Item Value Reference Range Interpretation Comments Percent Reticulocyte Count (test code = 46106-8) 5.5 0.8-2 .2 H [facility] HospitalIron Tapjx5234-17-96 22:25:00* Test Item Value Reference Range Interpretation Comments Iron Level (test code = 2498-4) 47 65-175 L [facility] HospitalTotal Iron Binding Owvsvvml3779-95-59 22:25:00* Test Item Value Reference Range Interpretation Comments Total Iron Binding Capacity (test code = 2500-7) 223 261-4 78 L [facility] HospitalPercent Iron Fsnkpqawcp9126-27-46 22:25:00* Test Item Value Reference Range Interpretation Comments Percent Iron Saturation (test code = 2502-3) 21 15-50 [facility] HospitalTransferrin2020-03-20 22:25:00* Test Item Value Reference Range Interpretation Comments Transferrin (test code = 3034-6) 159 174-364 L [facility] HospitalQualitative serum or plasma hepatitis B virus e antibody by enzyme iksyyrbwweb4526-74-79 21:30:00* Test Item Value Reference Range Interpretation Comments Hepatitis Be Antibody (test code = 28338-1) Negative Negative Performed at: - [employer] [id number] Lookback Coordinator: Dasha Lr MD, Phone: [phone] Heart & Surgical Hospitalerum or plasma alpha 1 antitrypsin measurement (mass/volume) 2019-10-18 21:30:00* Test Item Value Reference Range Interpretation Comments Yplyu-8-Goaeagbbtif (test code = 1825-9) 171 101-187 Performed at: DA - [facility] [address] [id number] 4Lab Director: RACHELLE Singh MD, Phone: [phone] Heart & Surgical Hospitalerum or plasma ceruloplasmin measurement (mass/volume)2019-10-18 21:30:00* Test Item Value Reference Range Interpretation Comments Ceruloplasmin (test code = 2064-4) 41.0 16.0-31.0 [facility] Hospitalerum or plasma hepatitis B virus core antibody detection by qaaspuaomoh4195-91-52 21:30:00* Test Item Value Reference Range Interpretation Comments Hepatitis B Core Total Antibody (test code = 07225-9) Negative Negative [facility] Hospitalerum or plasma hepatitis A virus IgM antibody detection by qcskcimgutt8859-86-07 21:30:00* Test Item Value Reference Range Interpretation Comments Hepatitis A IgM Antibody (test code = 28686-2) Negative [facility] Hospitalerum or plasma hepatitis B virus surface antigen detection by werqvalhyre9724-47-45 21:30:00* Test Item Value Reference Range Interpretation Comments Hepatitis B Surface Antigen (test code = 5196-1) Negative [facility] Hospitalerum or plasma hepatitis B virus core IgM antibody detection by xzgeyoxjcox4986-17-15 21:30:00* Test Item Value Reference Range Interpretation Comments Hepatitis B Core IgM Antibody (test code = 23420-5) Negative [facility] hepatitis C virus antibody wrypjnemn9670-44-05 21:30:00* Test Item Value Reference Range Interpretation Comments Hepatitis C Antibody (test code = 29005-8) <0.1 Reference Range: 0.0 - 0.9 s/co ratioNegative: < 0.8Indeterminate: 0.8 - 0.9Positive: > 0.9The CDC recommends that a positive HCV antibody resultbe followed up with a HCV Nucleic Acid Amplificationtest (820751).Testing performed by:[employer] [address] [phone]: Roe Contreras [facility] mitochondria M2 IgG antibody assay (units/volume)2019-10-18 21:30:00* Test Item Value Reference Range Interpretation Comments Anti-Mitochondrial Antibody (test code = 99081-2) <20.0 0.0- 20.0 Negative 0.0 - 20.0 Equivocal 20.1 - 24.9 Positive > 24.9Mitochondrial (M2) Antibodies are found in 90-96% ofpatients with primary bi liary cirrhosis.Performed at: - [facility] [id number] Director: Dasha Lr MD, Phone: [phone] Heart & Surgical Hospitalerum nuclear antibody titer by irrvlkxqaxenduuquf9083-41-80 21:30:00* Test Item Value Reference Range Interpretation Comments Anti-Nuclear Antibody Screen (test code = 5048-4) Negative [facility] or plasma alkaline phosphatase measurement (enzymatic activity/volume)2019-10-18 21:30:00* Test Item Value Reference Range Interpretation Comments Alkaline Phosphatase (test code = 6768-6) 865 39-117 [facility] or plasma intestinal alkaline phosphatase/total alkaline phosphatase dqbky7485-65-46 21:30:00* Test Item Value Reference Range Interpretation Comments Alkaline Phosphatase Iso-Intestine (test code = 51521-4) 0 0-18 Performed at: [facility] [employer] [id number] Director: Roe Contreras MD, Phone: [phone] at: [address] [id number] Director: Dasha Lr MD, Ph one: [phone] Heart & Surgical Hospitalerum or plasma bone alkaline phosphatase/alkaline phosphatase.ahari1565-81-16 21:30:00* Test Item Value Reference Range Interpretation Comments Alkaline Phosphatase Iso-Bone (test code = 75482-5) 21 12 -68 [facility] or plasma liver alkaline phosphatase/total alkaline phosphatase bxgkj8145-64-89 21:30:00* Test Item Value Reference Range Interpretation Comments Alkaline Phosphatase Iso-Liver (test code = 12998-6) 79 1 3-88 [facility] serum or plasma hepatitis B virus e antibody by enzyme xjlmvisduzw0619-61-42 21:30:00* Test Item Value Reference Range Interpretation Comments Hepatitis Be Antibody (test code = 12838-4) Negative Negative Performed at: [facility] [employer] [id number] Lookback Coordinator: Dasha Lr MD, Phone: [phone] Heart & Surgical Hospitalerum or plasma alpha 1 antitrypsin measurement (mass/volume) 2019-10-18 21:30:00* Test Item Value Reference Range Interpretation Comments Nodrh-2-Iqhiryromxb (test code = 1825-9) 171 101-187 Performed at: [facility], [place], [place] [address] 4Lab Director: RACHELLE Singh MD, Phone: [phone] Heart & Surgical Hospitalerum or plasma ceruloplasmin measurement (mass/volume)2019-10-18 21:30:00* Test Item Value Reference Range Interpretation Comments Ceruloplasmin (test code = 2064-4) 41.0 16.0-31.0 [facility] or plasma hepatitis B virus core antibody detection by bitnmbfbgpl2823-66-20 21:30:00* Test Item Value Reference Range Interpretation Comments Hepatitis B Core Total Antibody (test code = 64422-2) Negative Negative [facility] or plasma hepatitis A virus IgM antibody detection by pjzvtkhxulg4271-53-92 21:30:00* Test Item Value Reference Range Interpretation Comments Hepatitis A IgM Antibody (test code = 78421-8) Negative [facility] or plasma hepatitis B virus surface antigen detection by btbkatgctzd2221-18-35 21:30:00* Test Item Value Reference Range Interpretation Comments Hepatitis B Surface Antigen (test code = 5196-1) Negative [facility] or plasma hepatitis B virus core IgM antibody detection by lhgbqefxxgt0615-47-48 21:30:00* Test Item Value Reference Range Interpretation Comments Hepatitis B Core IgM Antibody (test code = 62768-6) Negative [facility] hepatitis C virus antibody emuqjnkni0462-37-15 21:30:00* Test Item Value Reference Range Interpretation Comments Hepatitis C Antibody (test code = 91869-9) <0.1 Reference Range: 0.0 - 0.9 s/co ratioNegative: < 0.8Indeterminate: 0.8 - 0.9Positive: > 0.9The CDC recommends that a positive HCV antibody resultbe followed up with a HCV Nucleic Acid Amplificationtest (522365).Testing performed by:[employer] [id number]: Roe Contreras [facility]le[facility] mitochondria M2 IgG antibody assay (units/volume)2019-10-18 21:30:00* Test Item Value Reference Range Interpretation Comments Anti-Mitochondrial Antibody (test code = 21486-7) <20.0 0.0- 20.0 Negative 0.0 - 20.0 Equivocal 20.1 - 24.9 Positive > 24.9Mitochondrial (M2) Antibodies are found in 90-96% ofpatients with primary bi liary cirrhosis.Performed at: [employer] [id number] Director: Dasha Lr MD, Phone: [phone] Heart & Surgical Hospitalerum nuclear antibody titer by wjxgzpbourznqthokq1378-06-80 21:30:00* Test Item Value Reference Range Interpretation Comments Anti-Nuclear Antibody Screen (test code = 5048-4) Negative [facility] or plasma alkaline phosphatase measurement (enzymatic activity/volume)2019-10-18 21:30:00* Test Item Value Reference Range Interpretation Comments Alkaline Phosphatase (test code = 6768-6) 865 39-117 [facility] or plasma intestinal alkaline phosphatase/total alkaline phosphatase gvrko8854-78-14 21:30:00* Test Item Value Reference Range Interpretation Comments Alkaline Phosphatase Iso-Intestine (test code = 45398-1) 0 0-18 Performed at: [facility] [employer] [id number] Director: Roe Contreras MD, Phone: [phone] at: [facility] [employer] [id number] Director: Dasha Lr MD, Ph one: [phone] Heart & Surgical Hospitalerum or plasma bone alkaline phosphatase/alkaline phosphatase.cwgec5217-92-69 21:30:00* Test Item Value Reference Range Interpretation Comments Alkaline Phosphatase Iso-Bone (test code = 29527-3) 21 12 -68 [facility] or plasma liver alkaline phosphatase/total alkaline phosphatase rrfuo9018-15-43 21:30:00* Test Item Value Reference Range Interpretation Comments Alkaline Phosphatase Iso-Liver (test code = 50170-6) 79 1 3-88 [facility] HospitalQualitative serum or plasma hepatitis B virus e antibody by enzyme qujrfuhlelc9935-81-84 21:30:00* Test Item Value Reference Range Interpretation Comments Hepatitis Be Antibody (test code = 50481-6) Negative Negative Performed at: [employer] [id number] Lookback Coordinator: Dasha Lr MD, Phone: [phone] Heart & Surgical Hospitalerum or plasma alpha 1 antitrypsin measurement (mass/volume) 2019-10-18 21:30:00* Test Item Value Reference Range Interpretation Comments Csmzi-5-Ehhnfjnvrpd (test code = 1825-9) 171 101-187 Performed at: [address], [place], [place] [id number] 4Lab Director: RACHELLE Singh MD, Phone: [phone] Heart & Surgical Hospitalerum or plasma ceruloplasmin measurement (mass/volume)2019-10-18 21:30:00* Test Item Value Reference Range Interpretation Comments Ceruloplasmin (test code = 2064-4) 41.0 16.0-31.0 [facility] or plasma hepatitis B virus core antibody detection by isoziulixgp8893-16-24 21:30:00* Test Item Value Reference Range Interpretation Comments Hepatitis B Core Total Antibody (test code = 93439-5) Negative Negative [facility] or plasma hepatitis A virus IgM antibody detection by vmphvedqwzi1333-47-87 21:30:00* Test Item Value Reference Range Interpretation Comments Hepatitis A IgM Antibody (test code = 96730-9) Negative [facility] or plasma hepatitis B virus surface antigen detection by xyinxgoisur6857-78-86 21:30:00* Test Item Value Reference Range Interpretation Comments Hepatitis B Surface Antigen (test code = 5196-1) Negative [facility] or plasma hepatitis B virus core IgM antibody detection by sxumvkhuetx1132-68-44 21:30:00* Test Item Value Reference Range Interpretation Comments Hepatitis B Core IgM Antibody (test code = 02779-8) Negative [facility] hepatitis C virus antibody lfpugvttu0919-80-27 21:30:00* Test Item Value Reference Range Interpretation Comments Hepatitis C Antibody (test code = 47091-3) <0.1 Reference Range: 0.0 - 0.9 s/co ratioNegative: < 0.8Indeterminate: 0.8 - 0.9Positive: > 0.9The CDC recommends that a positive HCV antibody resultbe followed up with a HCV Nucleic Acid Amplificationtest (563350).Testing performed by:[employer] [address] [phone]: Roe Contreras [facility] mitochondria M2 IgG antibody assay (units/volume)2019-10-18 21:30:00* Test Item Value Reference Range Interpretation Comments Anti-Mitochondrial Antibody (test code = 86268-9) <20.0 0.0- 20.0 Negative 0.0 - 20.0 Equivocal 20.1 - 24.9 Positive > 24.9Mitochondrial (M2) Antibodies are found in 90-96% ofpatients with primary bi liary cirrhosis.Performed at: [address] [id number] Director: Dasha Lr MD, Phone: [phone] Heart & Surgical Hospitalerum nuclear antibody titer by jzeqoejwuvhufktkjh5994-09-92 21:30:00* Test Item Value Reference Range Interpretation Comments Anti-Nuclear Antibody Screen (test code = 5048-4) Negative [facility] or plasma alkaline phosphatase measurement (enzymatic activity/volume)2019-10-18 21:30:00* Test Item Value Reference Range Interpretation Comments Alkaline Phosphatase (test code = 6768-6) 865 39-117 [facility] or plasma intestinal alkaline phosphatase/total alkaline phosphatase snfja2223-76-02 21:30:00* Test Item Value Reference Range Interpretation Comments Alkaline Phosphatase Iso-Intestine (test code = 04894-0) 0 0-18 Performed at: [facility] [employer] [id number] Director: Roe Contreras MD, Phone: [phone] at: [facility] [address] [place] [id number] Director: Dasha Lr MD, Ph one: [phone] Heart & Surgical Hospitalerum or plasma bone alkaline phosphatase/alkaline phosphatase.vysti9824-33-07 21:30:00* Test Item Value Reference Range Interpretation Comments Alkaline Phosphatase Iso-Bone (test code = 52942-4) 21 12 -68 [facility] or plasma liver alkaline phosphatase/total alkaline phosphatase mscku6896-29-28 21:30:00* Test Item Value Reference Range Interpretation Comments Alkaline Phosphatase Iso-Liver (test code = 55175-2) 79 1 3-88 [facility] HospitalQualitative serum or plasma hepatitis B virus e antibody by enzyme vkyqheiqkeo2579-08-20 21:30:00* Test Item Value Reference Range Interpretation Comments Hepatitis Be Antibody (test code = 02905-0) Negative Negative Performed at: [employer] [id number] Lookback Coordinator: Dasha Lr MD, Phone: [phone] Heart & Surgical Hospitalerum or plasma alpha 1 antitrypsin measurement (mass/volume) 2019-10-18 21:30:00* Test Item Value Reference Range Interpretation Comments Hvugn-6-Sdsehlmwftc (test code = 1825-9) 171 101-187 Performed at: [facility] CenterAjltcp8[address] [id number] 4[facility] Director: RACHELLE Singh MD, Phone: [phone] Heart & Surgical Hospitalerum or plasma ceruloplasmin measurement (mass/volume)2019-10-18 21:30:00* Test Item Value Reference Range Interpretation Comments Ceruloplasmin (test code = 2064-4) 41.0 16.0-31.0 [facility] or plasma hepatitis B virus core antibody detection by fzylrnshfqf8236-77-20 21:30:00* Test Item Value Reference Range Interpretation Comments Hepatitis B Core Total Antibody (test code = 41399-3) Negative Negative [facility] or plasma hepatitis A virus IgM antibody detection by pzonpwohsfm7731-76-35 21:30:00* Test Item Value Reference Range Interpretation Comments Hepatitis A IgM Antibody (test code = 45775-3) Negative [facility] or plasma hepatitis B virus surface antigen detection by rbwdozynpvf0216-08-37 21:30:00* Test Item Value Reference Range Interpretation Comments Hepatitis B Surface Antigen (test code = 5196-1) Negative [facility] or plasma hepatitis B virus core IgM antibody detection by hunxkkyfuyu6138-23-18 21:30:00* Test Item Value Reference Range Interpretation Comments Hepatitis B Core IgM Antibody (test code = 33929-3) Negative [facility] hepatitis C virus antibody epcwnshqw9578-27-59 21:30:00* Test Item Value Reference Range Interpretation Comments Hepatitis C Antibody (test code = 80543-3) <0.1 Reference Range: 0.0 - 0.9 s/co ratioNegative: < 0.8Indeterminate: 0.8 - 0.9Positive: > 0.9The CDC recommends that a positive HCV antibody resultbe followed up with a HCV Nucleic Acid Amplificationtest (931716).Testing performed by:[employer] [address] [phone]: Roe Contreras [facility] mitochondria M2 IgG antibody assay (units/volume)2019-10-18 21:30:00* Test Item Value Reference Range Interpretation Comments Anti-Mitochondrial Antibody (test code = 58133-0) <20.0 0.0- 20.0 Negative 0.0 - 20.0 Equivocal 20.1 - 24.9 Positive > 24.9Mitochondrial (M2) Antibodies are found in 90-96% ofpatients with primary bi liary cirrhosis.Performed at: [facility] [employer] [id number] Director: Dasha Lr MD, Phone: [phone] Heart & Surgical Hospitalerum nuclear antibody titer by hynzfxsqvqfrzswelp0119-79-85 21:30:00* Test Item Value Reference Range Interpretation Comments Anti-Nuclear Antibody Screen (test code = 5048-4) Negative [facility] or plasma alkaline phosphatase measurement (enzymatic activity/volume)2019-10-18 21:30:00* Test Item Value Reference Range Interpretation Comments Alkaline Phosphatase (test code = 6768-6) 865 39-117 [facility] or plasma intestinal alkaline phosphatase/total alkaline phosphatase ozwac6583-77-25 21:30:00* Test Item Value Reference Range Interpretation Comments Alkaline Phosphatase Iso-Intestine (test code = 54148-2) 0 0-18 Performed at: [facility] [address] [place], [place] [id number] Director: Roe Contreras MD, Phone: [phone] at: - [facility] [address] [place], [place] [id number] Director: Dasha Lr MD, Ph one: [phone] [facility] or plasma bone alkaline phosphatase/alkaline phosphatase.hesdb8743-83-50 21:30:00* Test Item Value Reference Range Interpretation Comments Alkaline Phosphatase Iso-Bone (test code = 72858-9) 21 [facility] or plasma liver alkaline phosphatase/total alkaline phosphatase qrhld0055-06-50 21:30:00* Test Item Value Reference Range Interpretation Comments Alkaline Phosphatase Iso-Liver (test code = 27463-5) 79 1 [facility] HospitalCHE[facility]INGLE ([facility])2019-10-18 21:01:00 [facility] [address] [place] [address] Patient Name: VIOLETTE LAMB MR #: [id number] : 1965 Age/Sex: 54/M Req #: [id number] Adm Physician: PAWEL SALVADOR MD Ordered by: PAWEL SALVADOR MD Report #: [id number] Location: MED/SURG Room/Bed: [facility] Procedure: [id number] DX/CHEST SINGLE (PORTABLE) [...] 10/18/192102 COPY TO: PAWEL SALVADOR MD Creatine Evsvjp4942-12-27 14:56:00* Test Item Value Reference Range Interpretation Comments Creatine Kinase (test code = 2157-6) 38 30-200 [facility] HospitalCreatine Kinase UN0091-87-89 14:56:00* Test Item Value Reference Range Interpretation Comments Creatine Kinase MB (test code = 48573-8) 1.20 0-5.0 [facility] HospitalTroponin J3038-88-09 14:56:00* Test Item Value Reference Range Interpretation Comments Troponin I (test code = KDT8679) 0.059 0-0.300 [facility] HospitalActivated Partial Thromboplast Time 2019-10-18 13:15:00* Test Item Value Reference Range Interpretation Comments Activated Partial Thromboplast Time (test code = 91409-7) 30.1 23.8-35.5 [facility] HospitalAutomated reticulocyte count as percentage of total dxpsbdulyhoq3976-82-36 12:40:00* Test Item Value Reference Range Interpretation Comments Percent Reticulocyte Count (test code = 18808-0) 5.5 0.8-2 .2 [facility] HospitalActivated partial thromboplastin time (aPTT) in platelet poor plasma by coagulation ojcwd2963-82-22 12:40:00* Test Item Value Reference Range Interpretation Comments Activated Partial Thromboplast Time (test code = 32513-7) 30.1 23.8-35.5 [facility] or plasma iron measurement (mass/volume)2019-10-18 12:40:00* Test Item Value Reference Range Interpretation Comments Iron Level (test code = 2498-4) 47 65-175 [facility]er[facility] or plasma iron binding capacity measurement (mass/volume)2019-10-18 12:40:00* Test Item Value Reference Range Interpretation Comments Total Iron Binding Capacity (test code = 2500-7) 223 261-4 78 [facility]er[facility] or plasma iron saturation measurement (mass fraction)2019-10-18 12:40:00* Test Item Value Reference Range Interpretation Comments Percent Iron Saturation (test code = 2502-3) 21 15-50 [facility]er[facility] or plasma transferrin measurement (mass/volume)2019-10-18 12:40:00* Test Item Value Reference Range Interpretation Comments Transferrin (test code = 3034-6) 159 174-364 [facility]er[facility] or plasma ferritin measurement (mass/volume)2019-10-18 12:40:00* Test Item Value Reference Range Interpretation Comments Ferritin (test code = 2276-4) > 2000.00 21.81-274.66 [facility]er[facility] or plasma indirect bilirubin measurement (mass/volume)2019-10-18 12:40:00* Test Item Value Reference Range Interpretation Comments Indirect Bilirubin (test code = 1971-1) 2.9 0.3-1.2 [facility] or plasma creatine kinase measurement (enzymatic activity/volume)2019-10-18 12:40:00* Test Item Value Reference Range Interpretation Comments Creatine Kinase (test code = 2157-6) 38 30-200 [facility]er[facility] or plasma creatine kinase MB measurement (mass/volume)2019-10-18 12:40:00* Test Item Value Reference Range Interpretation Comments Creatine Kinase MB (test code = 60550-5) 1.20 0-5.0 [facility] HospitalTroponin I measurement by highly sensitive enzyme qylqrqbbmlm9640-86-77 12:40:00* Test Item Value Reference Range Interpretation Comments Troponin I (test code = 74149-9) 0.059 0-0.300 [facility] HospitalBlood cobalamin (vitamin B12) measurement (mass/volume)2019-10-18 12:40:00* Test Item Value Reference Range Interpretation Comments Vitamin B12 Level (test code = 46069-3) 401 213-816 [facility] or plasma folate measurement (mass/volume)2019-10-18 12:40:00* Test Item Value Reference Range Interpretation Comments Folate (test code = 2284-8) 9.5 7.0-15.4 [facility] HospitalAutomated reticulocyte count as percentage of total uxagmnxpfema1743-39-61 12:40:00* Test Item Value Reference Range Interpretation Comments Percent Reticulocyte Count (test code = 58914-3) 5.5 0.8-2 .2 [facility] HospitalActivated partial thromboplastin time (aPTT) in platelet poor plasma by coagulation kulco8387-39-35 12:40:00* Test Item Value Reference Range Interpretation Comments Activated Partial Thromboplast Time (test code = 67541-3) 30.1 23.8-35.5 [facility]er[facility] or plasma iron measurement (mass/volume)2019-10-18 12:40:00* Test Item Value Reference Range Interpretation Comments Iron Level (test code = 2498-4) 47 65-175 [facility]erum or plasma iron binding capacity measurement (mass/volume)2019-10-18 12:40:00* Test Item Value Reference Range Interpretation Comments Total Iron Binding Capacity (test code = 2500-7) 223 261-4 78 [facility]er[facility] or plasma iron saturation measurement (mass fraction)2019-10-18 12:40:00* Test Item Value Reference Range Interpretation Comments Percent Iron Saturation (test code = 2502-3) 21 15-50 [facility]er[facility] or plasma transferrin measurement (mass/volume)2019-10-18 12:40:00* Test Item Value Reference Range Interpretation Comments Transferrin (test code = 3034-6) 159 174-364 [facility]er[facility] or plasma ferritin measurement (mass/volume)2019-10-18 12:40:00* Test Item Value Reference Range Interpretation Comments Ferritin (test code = 2276-4) > 2000.00 21.81-274.66 [facility]er[facility] or plasma indirect bilirubin measurement (mass/volume)2019-10-18 12:40:00* Test Item Value Reference Range Interpretation Comments Indirect Bilirubin (test code = 1971-1) 2.9 0.3-1.2 [facility]er[facility] or plasma creatine kinase measurement (enzymatic activity/volume)2019-10-18 12:40:00* Test Item Value Reference Range Interpretation Comments Creatine Kinase (test code = 2157-6) 38 30-200 [facility] Hospitalerum or plasma creatine kinase MB measurement (mass/volume)2019-10-18 12:40:00* Test Item Value Reference Range Interpretation Comments Creatine Kinase MB (test code = 36501-9) 1.20 0-5.0 [facility] HospitalTroponin I measurement by highly sensitive enzyme kkyfgolbfnp4724-45-66 12:40:00* Test Item Value Reference Range Interpretation Comments Troponin I (test code = 58676-8) 0.059 0-0.300 [facility] HospitalBlood cobalamin (vitamin B12) measurement (mass/volume)2019-10-18 12:40:00* Test Item Value Reference Range Interpretation Comments Vitamin B12 Level (test code = 45281-8) 401 213-816 [facility]er[facility] or plasma folate measurement (mass/volume)2019-10-18 12:40:00* Test Item Value Reference Range Interpretation Comments Folate (test code = 2284-8) 9.5 7.0-15.4 [facility] HospitalAutomated reticulocyte count as percentage of total tvduypdfmcjl7629-03-16 12:40:00* Test Item Value Reference Range Interpretation Comments Percent Reticulocyte Count (test code = 07707-6) 5.5 0.8-2 .2 [facility]erum or plasma iron measurement (mass/volume)2019-10-18 12:40:00* Test Item Value Reference Range Interpretation Comments Iron Level (test code = 2498-4) 47 65-175 [facility] Hospitalerum or plasma iron binding capacity measurement (mass/volume)2019-10-18 12:40:00* Test Item Value Reference Range Interpretation Comments Total Iron Binding Capacity (test code = 2500-7) 223 261-4 78 [facility] Hospitalerum or plasma iron saturation measurement (mass fraction)2019-10-18 12:40:00* Test Item Value Reference Range Interpretation Comments Percent Iron Saturation (test code = 2502-3) 21 15-50 [facility] Hospitalerum or plasma transferrin measurement (mass/volume)2019-10-18 12:40:00* Test Item Value Reference Range Interpretation Comments Transferrin (test code = 3034-6) 159 174-364 [facility]erum or plasma ferritin measurement (mass/volume)2019-10-18 12:40:00* Test Item Value Reference Range Interpretation Comments Ferritin (test code = 2276-4) > 2000.00 21.81-274.66 [facility] Hospitalerum or plasma indirect bilirubin measurement (mass/volume)2019-10-18 12:40:00* Test Item Value Reference Range Interpretation Comments Indirect Bilirubin (test code = 1971-1) 2.9 0.3-1.2 [facility] creatine kinase measurement (enzymatic activity/volume)2019-10-18 12:40:00* Test Item Value Reference Range Interpretation Comments Creatine Kinase (test code = 2157-6) 38 30-200 [facility] plasma creatine kinase MB measurement (mass/volume)2019-10-18 12:40:00* Test Item Value Reference Range Interpretation Comments Creatine Kinase MB (test code = 04913-7) 1.20 0-5.0 [facility] by highly sensitive enzyme [id number] 12:40:00* Test Item Value Reference Range Interpretation Comments Troponin I (test code = 62619-3) 0.059 0-0.300 [facility] cobalamin (vitamin B12) measurement (mass/volume)2019-10-18 12:40:00* Test Item Value Reference Range Interpretation Comments Vitamin B12 Level (test code = 85255-9) 401 213816 [facility] plasma folate measurement (mass/volume)2019-10-18 12:40:00* Test Item Value Reference Range Interpretation Comments Folate (test code = 2284-8) 9.5 7.0-15.4 [facility] HospitalAutomated reticulocyte count as percentage of total [id number] 12:40:00* Test Item Value Reference Range Interpretation Comments Percent Reticulocyte Count (test code = 52154-8) 5.5 0.8-2 .2 [facility] iron measurement (mass/volume)2019-10-18 12:40:00* Test Item Value Reference Range Interpretation Comments Iron Level (test code = 2498-4) 47 65-175 [facility] iron binding capacity measurement (mass/volume)2019-10-18 12:40:00* Test Item Value Reference Range Interpretation Comments Total Iron Binding Capacity (test code = 2500-7) 223 261-4 78 [facility] iron saturation measurement (mass fraction)2019-10-18 12:40:00* Test Item Value Reference Range Interpretation Comments Percent Iron Saturation (test code = 2502-3) 21 15-50 [facility] plasma transferrin measurement (mass/volume)2019-10-18 12:40:00* Test Item Value Reference Range Interpretation Comments Transferrin (test code = 3034-6) 159 174-364 [facility] ferritin measurement (mass/volume)2019-10-18 12:40:00* Test Item Value Reference Range Interpretation Comments Ferritin (test code = 2276-4) > 2000.00 21.81-274.66 [facility] indirect bilirubin measurement (mass/volume)2019-10-18 12:40:00* Test Item Value Reference Range Interpretation Comments Indirect Bilirubin (test code = 1971-1) 2.9 0.3-1.2 [facility] creatine kinase measurement (enzymatic activity/volume)2019-10-18 12:40:00* Test Item Value Reference Range Interpretation Comments Creatine Kinase (test code = 2157-6) 38 30-200 [facility] plasma creatine kinase MB measurement (mass/volume)2019-10-18 12:40:00* Test Item Value Reference Range Interpretation Comments Creatine Kinase MB (test code = 48378-3) 1.20 0-5.0 [facility] I measurement by highly sensitive enzyme [id number] 12:40:00* Test Item Value Reference Range Interpretation Comments Troponin I (test code = 79217-8) 0.059 0-0.300 [facility]Blood cobalamin (vitamin B12) measurement (mass/volume)2019-10-18 12:40:00* Test Item Value Reference Range Interpretation Comments Vitamin B12 Level (test code = 03390-0) 401 213-816 [facility] plasma folate measurement (mass/volume)2019-10-18 12:40:00* Test Item Value Reference Range Interpretation Comments Folate (test code = 2284-8) 9.5 7.0-15.4 [facility]GL[facility]ED2020-[facility] 20:09:00* Test Item Value Reference Range Interpretation Comments GLUBED (test code = GLUBED) 118 mg/dL 74-106 H Performed by certified piano machine operator at [facility] ANTINUCLEAR ANTIBODIES [id number] 18:07:00* Test Item Value Reference Range Interpretation Comments BRIDGETT SCREEN (test code = ANASCR) Negative Negative Performed At: [facility] [address] [id number] Kyle L MD Ph:[phone] REFAB [id number] 18:07:00* Test Item Value Reference Range Interpretation Comments AB MITOCHONDRIAL (test code = MITOCHAB) <20.0 Units 0.0-20.0 Negative 0.0 - 20.0 Equivocal 20.1 - 24.9 Positive >24.9Mitochondrial (M2) Antibodies are found in 90-96% ofpatients with primary biliary cirrhosis.Performed At: [facility] [address] [id number] Lou MD Ph:[phone] [id number] 11:29:00* Test Item Value Reference Range Interpretation Comments GLUBED (test code = GLUBED) 133 mg/dL 74-106 H Performed by certified piano machine operator at [facility] [id number] 11:02:00* Test Item Value Reference Range Interpretation Comments GLUBED (test code = GLUBED) 146 mg/dL 74-106 H Performed by certified piano machine operator at [facility] AB HIV 1 09:51:00* Test Item Value Reference Range Interpretation Comments AB HIV 1 2 (test code = VQZ74JE) Nonreactive NonReactive It is recognized that currently available assays for thedetection of antibodies to HIV-1 and/or HIV-2 may notdetect all infected individuals. A negative test result doesnot exclude the possibility of exposure to or infection withHIV. HIV antibodies may be undetectable in some stages ofthe infection and in some clinical conditions. AB HEPATITIS B [id number] 07:12:00* Test Item Value Reference Range Interpretation Comments AB HEPATITIS B SURFACE (test code = HBSAB) Reactive () Non Reactive: Inconsistent with immunity, less than 10 mIU/mL Reactive: Consistent with immunity, greater than 9.9 mIU/mLPerformed At: [facility] [id number] Palencia MD Ph:[phone] HEPATITIS B CORE ANTIBODY,[id number] 07:12:00* Test Item Value Reference Range Interpretation Comments HEPATITIS B CORE ANTIBODY,TOT (test code = HBCAB) Negative Nega tive Performed At: [facility] [address] [id number] Palencia MD Ph:[phone] [id number] 05:31:00* Test Item Value Reference Range Interpretation Comments HEMOGLOBIN (test code = HGB) 8.0 gram/dL 13.0-17.5 L [id number] 20:08:00* Test Item Value Reference Range Interpretation Comments GLUBED (test code = GLUBED) 135 mg/dL 74-106 H Performed by certified piano machine operator at [facility] [id number] 17:42:00* Test Item Value Reference Range Interpretation Comments GLUBED (test code = GLUBED) 237 mg/dL 74-106 H Performed by certified piano machine operator at [facility] BASIC METABOLIC [id number] 13:54:00* Test Item Value Reference Range Interpretation [...] CA) 8.7 mg/dL 8.5-10.1 N BASIC METABOLIC [id number] 13:49:00* Test Item Value Reference Range Interpretation [...] code = CA) mg/dL 8.5-10.1 CBC W/AUTO [id number] 12:42:00* Test Item Value Reference Range Interpretation [...] = MDIFF) NO, ONLY SCAN NEEDED DIFFERENTIAL [id number] 12:42:00* Test Item Value Reference Range Interpretation Comments STAIN ACCEPTABILITY (test code = STN ACCEPTABLE) STAIN ACCEPTABLE POLYCHROMASIA (test code = POLC) 1+ ANISOCYTOSIS (test code = ANISO) 3+ MACROCYTOSIS (test code = MACR) 3+ PLATELET ESTIMATE (test code = PLTEST) SLIGHTLY DECREASED PLATELET MORPHOLOGY (test code = PLTMORPH) NORMAL [id number] 12:13:00* Test Item Value Reference Range Interpretation Comments GLUBED (test code = GLUBED) 142 mg/dL 74-106 H Performed by certified piano machine operator at [facility] CBC W/AUTO [id number] 11:55:00* Test Item Value Reference Range Interpretation [...] = MDIFF) NO, ONLY SCAN NEEDED DIFFERENTIAL [id number] 11:55:00* Test Item Value Reference Range Interpretation Comments STAIN ACCEPTABILITY (test code = STN ACCEPTABLE) CABOT RINGS (test code = CAB) MORPHOLOGY COMMENT (test code = MOC) PLATELET ESTIMATE (test code = PLTEST) PLATELET MORPHOLOGY (test code = PLTMORPH) CBC W/AUTO [id number] 11:55:00* Test Item Value Reference Range Interpretation [...] = MDIFF) NO, ONLY SCAN NEEDED DIFFERENTIAL [id number] 11:55:00* Test Item Value Reference Range Interpretation Comments STAIN ACCEPTABILITY (test code = STN ACCEPTABLE) CABOT RINGS (test code = CAB) MORPHOLOGY COMMENT (test code = MOC) PLATELET ESTIMATE (test code = PLTEST) PLATELET MORPHOLOGY (test code = PLTMORPH) CBC W/AUTO [id number] 11:55:00* Test Item Value Reference Range Interpretation [...] = MDIFF) NO, ONLY SCAN NEEDED DIFFERENTIAL [id number] 11:55:00* Test Item Value Reference Range Interpretation Comments STAIN ACCEPTABILITY (test code = STN ACCEPTABLE) MORPHOLOGY COMMENT (test code = MOC) PLATELET ESTIMATE (test code = PLTEST) PLATELET MORPHOLOGY (test code = PLTMORPH) CBC W/AUTO [id number] 11:55:00* Test Item Value Reference Range Interpretation [...] = MDIFF) NO, ONLY SCAN NEEDED DIFFERENTIAL [id number] 11:55:00* Test Item Value Reference Range Interpretation Comments STAIN ACCEPTABILITY (test code = STN ACCEPTABLE) CABOT RINGS (test code = CAB) MORPHOLOGY COMMENT (test code = MOC) PLATELET ESTIMATE (test code = PLTEST) PLATELET MORPHOLOGY (test code = PLTMORPH) CBC W/AUTO [id number] 07:58:00* Test Item Value Reference Range Interpretation [...] = MDIFF) NO, ONLY SCAN NEEDED DIFFERENTIAL [id number] 07:58:00* Test Item Value Reference Range Interpretation Comments STAIN ACCEPTABILITY (test code = STN ACCEPTABLE) STAIN ACCEPTABLE POLYCHROMASIA (test code = POLC) 1+ ANISOCYTOSIS (test code = ANISO) 3+ MACROCYTOSIS (test code = MACR) 3+ PLATELET ESTIMATE (test code = PLTEST) SLIGHTLY DECREASED PLATELET MORPHOLOGY (test code = PLTMORPH) NORMAL CBC W/AUTO [id number] 07:44:00* Test Item Value Reference Range Interpretation [...] = MDIFF) NO, ONLY SCAN NEEDED DIFFERENTIAL [id number] 07:44:00* Test Item Value Reference Range Interpretation Comments STAIN ACCEPTABILITY (test code = STN ACCEPTABLE) CABOT RINGS (test code = CAB) MORPHOLOGY COMMENT (test code = MOC) PLATELET ESTIMATE (test code = PLTEST) PLATELET MORPHOLOGY (test code = PLTMORPH) CBC W/AUTO [id number] 07:44:00* Test Item Value Reference Range Interpretation [...] = MDIFF) NO, ONLY SCAN NEEDED DIFFERENTIAL [id number] 07:44:00* Test Item Value Reference Range Interpretation Comments STAIN ACCEPTABILITY (test code = STN ACCEPTABLE) CABOT RINGS (test code = CAB) MORPHOLOGY COMMENT (test code = MOC) PLATELET ESTIMATE (test code = PLTEST) PLATELET MORPHOLOGY (test code = PLTMORPH) CBC W/AUTO [id number] 07:44:00* Test Item Value Reference Range Interpretation [...] = MDIFF) NO, ONLY SCAN NEEDED DIFFERENTIAL [id number] 07:44:00* Test Item Value Reference Range Interpretation Comments STAIN ACCEPTABILITY (test code = STN ACCEPTABLE) MORPHOLOGY COMMENT (test code = MOC) PLATELET ESTIMATE (test code = PLTEST) PLATELET MORPHOLOGY (test code = PLTMORPH) CBC W/AUTO [id number] 07:44:00* Test Item Value Reference Range Interpretation [...] = MDIFF) NO, ONLY SCAN NEEDED DIFFERENTIAL [id number] 07:44:00* Test Item Value Reference Range Interpretation Comments STAIN ACCEPTABILITY (test code = STN ACCEPTABLE) CABOT RINGS (test code = CAB) MORPHOLOGY COMMENT (test code = MOC) PLATELET ESTIMATE (test code = PLTEST) PLATELET MORPHOLOGY (test code = PLTMORPH) [id number] 07:34:00* Test Item Value Reference Range Interpretation Comments GLUBED (test code = GLUBED) 204 mg/dL 74-106 H Performed by certified piano machine operator at [facility] [id number] 20:20:00* Test Item Value Reference Range Interpretation Comments GLUBED (test code = GLUBED) 234 mg/dL 74-106 H Performed by certified piano machine operator at [facility] PROTHROMBIN [id number] 17:59:00* Test Item Value Reference Range Interpretation [...] (2.5-3.5) IS PATIENT ON ANTICOAGULANTS? NCBC W/O [id number] 17:49:00* Test Item Value Reference Range Interpretation [...] code = MPV) 12.2 fL 6.7-11.0 H [id number] 17:21:00* Test Item Value Reference Range Interpretation Comments GLUBED (test code = GLUBED) 146 mg/dL 74-106 H Performed by certified piano machine operator at [facility] [id number] 12:20:00* Test Item Value Reference Range Interpretation Comments GLUBED (test code = GLUBED) 194 mg/dL 74-106 H Performed by certified piano machine operator at [facility] ANTINUCLEAR ANTIBODIES [id number] 11:09:00* Test Item Value Reference Range Interpretation Comments BRIDGETT SCREEN (test code = ANASCR) Negative Negative Performed At: [address] [id number] Kyle L MD Ph:[phone] REFAB [id number] 11:09:00* Test Item Value Reference Range Interpretation Comments AB MITOCHONDRIAL (test code = MITOCHAB) EIA <1.0 [id number] 08:13:00* Test Item Value Reference Range Interpretation Comments GLUBED (test code = GLUBED) 188 mg/dL 74-106 H Performed by certified piano machine operator at [facility] ALPHA FETOPROTEIN TUMOR [id number] 08:10:00* Test Item Value Reference Range Interpretation Comments ALPHA FETOPROTEIN TUMOR MARKER (test code = AFPTM) 3.9 ng/mL 0.0 -8.3 [facility] Electrochemiluminescence Immunoassay(ECLIA)Values obtained with different assay methods or kits cannotbe used interchangeably. Results cannot be interpreted asabsolute evidence of the presence or absence of malignantdisease.This test is not interpretable in females.Performed At: [facility] [address] [id number] Roe Palencia MD Ph:[phone] [id number] 08:07:00* Test Item Value Reference Range Interpretation Comments HEMOGLOBIN (test code = HGB) 8.3 gram/dL 13.0-17.5 L [id number] 20:38:00* Test Item Value Reference Range Interpretation Comments GLUBED (test code = GLUBED) 168 mg/dL 74-106 H Performed by certified piano machine operator at [facility] [id number] 17:29:00* Test Item Value Reference Range Interpretation Comments GLUBED (test code = GLUBED) 192 mg/dL 74-106 H Performed by certified piano machine operator at [facility] HGB [id number] 16:55:00* Test Item Value Reference Range Interpretation Comments HEMOGLOBIN (test code = HGB) 8.6 gram/dL 13.0-17.5 L RESULT VERIFIED BY REPEAT ANALYSIS HEMATOCRIT (test code = HCT) 25.4 % 42.0-52.0 L [id number] 13:43:00* Test Item Value Reference Range Interpretation Comments GLUBED (test code = GLUBED) 224 mg/dL 74-106 H Performed by certified piano machine operator at [facility] ACUTE HEPATITIS [id number] 08:10:00* Test Item Value Reference Range Interpretation [...] with a HCV Nucleic Acid Amplification test ([id number]).Performed At: [facility] [address] [place], [place] [id number] Roe Palencia MD Ph:[phone] [id number] 08:02:00* Test Item Value Reference Range Interpretation Comments GLUBED (test code = GLUBED) 197 mg/dL 74-106 H Performed by certified piano machine operator at [facility] AG HEPAT B [id number] 07:41:00* Test Item Value Reference Range Interpretation Comments AG HEPAT B SURF (test code = HBSAG) Nonreactive Index Nonreactive BASIC METABOLIC [id number] 03:15:00* Test Item Value Reference Range Interpretation [...] CA) 8.8 mg/dL 8.5-10.1 N HEPATIC FUNCTION [id number] 03:15:00* Test Item Value Reference Range Interpretation [...] due to change in reagent. CBC W/AUTO [id number] 02:51:00* Test Item Value Reference Range Interpretation Comments WHITE BLOOD CELL (test code = WBC) 5.2 K/mm3 4.5-12.5 N RED BLOOD CELL (test code = RBC) 2.04 mill/mm3 4.0-5.8 L HEMOGLOBIN (test code = HGB) 6.6 gram/dL 13.0-17.5 L HEMATOCRIT (test code = HCT) 19.9 % 42.0-52.0 LL Results called to [id number] by MORENO 10/09/19 0220Critical results verified and [...] = MDIFF) NO, ONLY SCAN NEEDED DIFFERENTIAL [id number] 02:51:00* Test Item Value Reference Range Interpretation [...] (test code = PLTMORPH) NORMAL BASIC METABOLIC [id number] 02:50:00* Test Item Value Reference Range Interpretation [...] code = CA) mg/dL 8.5-10.1 HEPATIC FUNCTION [id number] 02:50:00* Test Item Value Reference Range Interpretation [...] code = ALKP) IUnit/L 45-117 CBC W/AUTO [id number] 02:20:00* Test Item Value Reference Range Interpretation Comments WHITE BLOOD CELL (test code = WBC) 5.2 K/mm3 4.5-12.5 N RED BLOOD CELL (test code = RBC) 2.04 mill/mm3 4.0-5.8 L HEMOGLOBIN (test code = HGB) 6.6 gram/dL 13.0-17.5 L HEMATOCRIT (test code = HCT) 19.9 % 42.0-52.0 Results called to [id number] by MORENO 10/09/19 0220Critical results verified and [...] = MDIFF) NO, ONLY SCAN NEEDED DIFFERENTIAL [id number] 02:20:00* Test Item Value Reference Range Interpretation Comments STAIN ACCEPTABILITY (test code = STN ACCEPTABLE) CABOT RINGS (test code = CAB) MORPHOLOGY COMMENT (test code = MOC) PLATELET ESTIMATE (test code = PLTEST) PLATELET MORPHOLOGY (test code = PLTMORPH) CBC W/AUTO [id number] 02:20:00* Test Item Value Reference Range Interpretation Comments WHITE BLOOD CELL (test code = WBC) 5.2 K/mm3 4.5-12.5 N RED BLOOD CELL (test code = RBC) 2.04 mill/mm3 4.0-5.8 L HEMOGLOBIN (test code = HGB) 6.6 gram/dL 13.0-17.5 L HEMATOCRIT (test code = HCT) 19.9 % 42.0-52.0 LL Results called to [id number] by DENIJP1 10/09/19 0220Critical results verified and [...] = MDIFF) NO, ONLY SCAN NEEDED DIFFERENTIAL [id number] 02:20:00* Test Item Value Reference Range Interpretation Comments STAIN ACCEPTABILITY (test code = STN ACCEPTABLE) CABOT RINGS (test code = CAB) MORPHOLOGY COMMENT (test code = MOC) PLATELET ESTIMATE (test code = PLTEST) PLATELET MORPHOLOGY (test code = PLTMORPH) CBC W/AUTO [id number] 02:20:00* Test Item Value Reference Range Interpretation Comments WHITE BLOOD CELL (test code = WBC) 5.2 K/mm3 4.5-12.5 N RED BLOOD CELL (test code = RBC) 2.04 mill/mm3 4.0-5.8 L HEMOGLOBIN (test code = HGB) 6.6 gram/dL 13.0-17.5 L HEMATOCRIT (test code = HCT) 19.9 % 42.0-52.0 LL Results called to [id number] by VERONICA1 10/09/19 0220Critical results verified and [...] = MDIFF) NO, ONLY SCAN NEEDED DIFFERENTIAL [id number] 02:20:00* Test Item Value Reference Range Interpretation Comments STAIN ACCEPTABILITY (test code = STN ACCEPTABLE) MORPHOLOGY COMMENT (test code = MOC) PLATELET ESTIMATE (test code = PLTEST) PLATELET MORPHOLOGY (test code = PLTMORPH) CBC W/AUTO [id number] 02:20:00* Test Item Value Reference Range Interpretation Comments WHITE BLOOD CELL (test code = WBC) 5.2 K/mm3 4.5-12.5 N RED BLOOD CELL (test code = RBC) 2.04 mill/mm3 4.0-5.8 L HEMOGLOBIN (test code = HGB) 6.6 gram/dL 13.0-17.5 L HEMATOCRIT (test code = HCT) 19.9 % 42.0-52.0 Results called to [id number] by VERONICA1 10/09/19 0220Critical results verified and [...] = MDIFF) NO, ONLY SCAN NEEDED DIFFERENTIAL [id number] 02:20:00* Test Item Value Reference Range Interpretation Comments STAIN ACCEPTABILITY (test code = STN ACCEPTABLE) CABOT RINGS (test code = CAB) MORPHOLOGY COMMENT (test code = MOC) PLATELET ESTIMATE (test code = PLTEST) PLATELET MORPHOLOGY (test code = PLTMORPH) [id number] 20:19:00* Test Item Value Reference Range Interpretation Comments GLUBED (test code = GLUBED) 252 mg/dL 74-106 H Performed by certified piano machine operator at [facility] [id number] 16:04:00* Test Item Value Reference Range Interpretation Comments GLUBED (test code = GLUBED) 216 mg/dL 74-106 H Performed by certified piano machine operator at [facility] HGB [id number] 14:10:00* Test Item Value Reference Range Interpretation Comments HEMOGLOBIN (test code = HGB) 6.8 gram/dL 13.0-17.5 L HEMATOCRIT (test code = HCT) 20.7 % 42.0-52.0 LL Results called to [id number] by V.LAB.JQ 10/08/19 1410Critical results verified and read back by Nurse? Y [id number] 11:49:00* Test Item Value Reference Range Interpretation Comments GLUBED (test code = GLUBED) 197 mg/dL 74-106 H Performed by certified piano machine operator at [facility] [id number] 08:14:00* Test Item Value Reference Range Interpretation Comments GLUBED (test code = GLUBED) 222 mg/dL 74-106 H Performed by certified piano machine operator at [facility] CBC W/AUTO [id number] 08:14:00* Test Item Value Reference Range Interpretation Comments WHITE BLOOD CELL (test code = WBC) 5.4 K/mm3 4.5-12.5 N RED BLOOD CELL (test code = RBC) 2.02 mill/mm3 4.0-5.8 L HEMOGLOBIN (test code = HGB) 6.6 gram/dL 13.0-17.5 L HEMATOCRIT (test code = HCT) 19.4 % 42.0-52.0 LL Results called to [id number] by V.LAB.JQ 10/08/19 0701Critical results verified and [...] = MDIFF) NO, ONLY SCAN NEEDED DIFFERENTIAL [id number] 08:14:00* Test Item Value Reference Range Interpretation [...] (test code = PLTMORPH) NORMAL BASIC METABOLIC [id number] 07:45:00* Test Item Value Reference Range Interpretation [...] CA) 8.4 mg/dL 8.5-10.1 L HEPATIC FUNCTION [id number] 07:45:00* Test Item Value Reference Range Interpretation [...] due to change in reagent. BASIC METABOLIC [id number] 07:37:00* Test Item Value Reference Range Interpretation [...] code = CA) mg/dL 8.5-10.1 HEPATIC FUNCTION [id number] 07:37:00* Test Item Value Reference Range Interpretation [...] code = ALKP) IUnit/L 45-117 CBC W/AUTO [id number] 07:01:00* Test Item Value Reference Range Interpretation Comments WHITE BLOOD CELL (test code = WBC) 5.4 K/mm3 4.5-12.5 N RED BLOOD CELL (test code = RBC) 2.02 mill/mm3 4.0-5.8 L HEMOGLOBIN (test code = HGB) 6.6 gram/dL 13.0-17.5 L HEMATOCRIT (test code = HCT) 19.4 % 42.0-52.0 LL Results called to [id number] by LESLIE 10/08/19 0701Critical results verified and [...] = MDIFF) NO, ONLY SCAN NEEDED DIFFERENTIAL [id number] 07:01:00* Test Item Value Reference Range Interpretation Comments STAIN ACCEPTABILITY (test code = STN ACCEPTABLE) CABOT RINGS (test code = CAB) MORPHOLOGY COMMENT (test code = MOC) PLATELET ESTIMATE (test code = PLTEST) PLATELET MORPHOLOGY (test code = PLTMORPH) CBC W/AUTO [id number] 07:01:00* Test Item Value Reference Range Interpretation Comments WHITE BLOOD CELL (test code = WBC) 5.4 K/mm3 4.5-12.5 N RED BLOOD CELL (test code = RBC) 2.02 mill/mm3 4.0-5.8 L HEMOGLOBIN (test code = HGB) 6.6 gram/dL 13.0-17.5 L HEMATOCRIT (test code = HCT) 19.4 % 42.0-52.0 LL Results called to [id number] by LESLIE 10/08/19 0701Critical results verified and [...] = MDIFF) NO, ONLY SCAN NEEDED DIFFERENTIAL [id number] 07:01:00* Test Item Value Reference Range Interpretation Comments STAIN ACCEPTABILITY (test code = STN ACCEPTABLE) CABOT RINGS (test code = CAB) MORPHOLOGY COMMENT (test code = MOC) PLATELET ESTIMATE (test code = PLTEST) PLATELET MORPHOLOGY (test code = PLTMORPH) CBC W/AUTO [id number] 07:01:00* Test Item Value Reference Range Interpretation Comments WHITE BLOOD CELL (test code = WBC) 5.4 K/mm3 4.5-12.5 N RED BLOOD CELL (test code = RBC) 2.02 mill/mm3 4.0-5.8 L HEMOGLOBIN (test code = HGB) 6.6 gram/dL 13.0-17.5 L HEMATOCRIT (test code = HCT) 19.4 % 42.0-52.0 LL Results called to [id number] by LESLIE 10/08/19 0701Critical results verified and [...] = MDIFF) NO, ONLY SCAN NEEDED DIFFERENTIAL [id number] 07:01:00* Test Item Value Reference Range Interpretation Comments STAIN ACCEPTABILITY (test code = STN ACCEPTABLE) MORPHOLOGY COMMENT (test code = MOC) PLATELET ESTIMATE (test code = PLTEST) PLATELET MORPHOLOGY (test code = PLTMORPH) CBC W/AUTO [id number] 07:01:00* Test Item Value Reference Range Interpretation Comments WHITE BLOOD CELL (test code = WBC) 5.4 K/mm3 4.5-12.5 N RED BLOOD CELL (test code = RBC) 2.02 mill/mm3 4.0-5.8 L HEMOGLOBIN (test code = HGB) 6.6 gram/dL 13.0-17.5 L HEMATOCRIT (test code = HCT) 19.4 % 42.0-52.0 LL Results called to [id number] by LESLIE 10/08/19 0701Critical results verified and [...] = MDIFF) NO, ONLY SCAN NEEDED DIFFERENTIAL [id number] 07:01:00* Test Item Value Reference Range Interpretation Comments STAIN ACCEPTABILITY (test code = STN ACCEPTABLE) CABOT RINGS (test code = CAB) MORPHOLOGY COMMENT (test code = MOC) PLATELET ESTIMATE (test code = PLTEST) PLATELET MORPHOLOGY (test code = PLTMORPH) [id number] 23:25:00* Test Item Value Reference Range Interpretation Comments GLUBED (test code = GLUBED) 187 mg/dL 74-106 H Performed by certified piano machine operator at [facility] - US ABDOMEN [id number] 20:26:00 Name: VIOLETTE LAMB [facility] : 1965 Age/S: 54 / M [address] [facility] Unit [facility]: [id number] Loc: [place] [address] Phys: Pawel Salvador MD Acct: [id number] Dis Date: Status: ADM IN PHONE #: [phone] Exam Date: 10/07/20192003 FAX #: [phone] Reason: jaundice EXAMS: CPT CODE: [id number] US ABDOMEN COMPLETE 17268 REASON FOR EXAM: jaundice EXAM ORDER DATE: 10/07/2019 7:23 PM Ordering: Pawel Salvador MD Attending:Pawel Salvador MD Location:[facility] PROCEDURE: - US ABDOMEN COMPLETE FINDINGS: The [...] ogist: Francisco Xie Trnscb Date/Time: 10/07/2019 (2025) [email or web address] Orig Print D/T: S: 10/07/2019 (2028) Probe: PAGE 1 Signed Re port - XR CHEST 1 [id number] 20:24:00 FAX: Pawel Beasley MD [place]: St: [facility] FAX: Adin Kim MD [phone] Name: VIOLETTE LAMB [facility] : 1965 Age/S: 54/M [address] [facility] Unit #: [id number] Loc: [place] [address] Phys: Pawel Salvador MD Acct: [id number] Dis Date: Status: ADM IN PHONE #: [phone] Exam Date: 10/07/20192010 FAX #: [phone] Reason: h/o chf EXAMS: CPT CODE: [id number] XR CHEST 1 V 22565 REASON FOR EXAM: h/o chf EXAM ORDER [...] Faustin MD echnologist: Thao Shelby RT(R); Ethan Harvey, RT(R Trnscrd Date /Time/By: 10/07/2019 (2023) : [...] FESAT) 39.55 % 13-45 N HEPATIC FUNCTION [id number] 19:19:00* Test Item Value Reference Range Interpretation [...] reference range due to change in reagent. [id number] 19:19:00* Test Item Value Reference Range Interpretation Comments LIPASE (test code = LIP) 166 U/L 73.0-393.0 N [id number]-[id number] 19:19:00* Test Item Value Reference Range Interpretation Comments TROPONIN-I (test code = TROPI) 0.030 ng/mL 0-0.045 N BASIC METABOLIC [id number] 18:22:00* Test Item Value Reference Range Interpretation [...] CA) 8.8 mg/dL 8.5-10.1 N BASIC METABOLIC [id number] 18:18:00* Test Item Value Reference Range Interpretation [...] (test code = CA) mg/dL 8.5-10.1 PROTHROMBIN [id number] 18:15:00* Test Item Value Reference Range Interpretation [...] (2.5-3.5) IS PATIENT ON ANTICOAGULANTS? NTHROMBOPLASTIN TIME MMQEGGI0412-07-30 18:15:00* Test Item Value Reference Range Interpretation Comments THROMBOPLASTIN TIME PARTIAL (test code = PTT) 34.2 seconds 25.0-36. 5 N IS PATIENT ON ANTICOAGULANTS? NCBC W/O [id number] 18:07:00* Test Item Value Reference Range Interpretation Comments WHITE BLOOD CELL (test code = WBC) 4.6 K/mm3 4.5-12.5 N RED BLOOD CELL (test code = RBC) 2.22 mill/mm3 4.0-5.8 L HEMOGLOBIN (test code = HGB) 7.2 gram/dL 13.0-17.5 L HEMATOCRIT (test code = HCT) 20.8 % 42.0-52.0 LL Results called to [id number] by MICHELET 10/07/19 1804Critical results verified and [...] code = MPV) 12.1 fL 6.7-11.0 H [id number] 09:59:00* Test Item Value Reference Range Interpretation Comments GLUBED (test code = GLUBED) 100 mg/dL 74-106 N Performed by certified piano machine operator at [facility] CBC W/AUTO [id number] 19:58:00* Test Item Value Reference Range Interpretation [...] = MDIFF) NO, ONLY SCAN NEEDED DIFFERENTIAL [id number] 19:58:00* Test Item Value Reference Range Interpretation Comments STAIN ACCEPTABILITY (test code = STN ACCEPTABLE) STAIN ACCEPTABLE ANISOCYTOSIS (test code = ANISO) 1+ PLATELET ESTIMATE (test code = PLTEST) DECREASED PLATELET MORPHOLOGY (test code = PLTMORPH) NORMAL COMPREHENSIVE METABOLIC [id number] 18:51:00* Test Item Value Reference Range Interpretation [...] LDL result is a direct measurement.========= PROTHROMBIN [id number] 18:47:00* Test Item Value Reference Range Interpretation [...] Mechanical prosthetic heart valves (2.5-3.5) THROMBOPLASTIN TIME [id number] 18:47:00* Test Item Value Reference Range Interpretation Comments THROMBOPLASTIN TIME PARTIAL (test code = PTT) 35.7 seconds 25.0-36. 5 N COMPREHENSIVE METABOLIC [id number] 18:43:00* Test Item Value Reference Range Interpretation [...] result is a direct measurement.========= CBC W/AUTO [id number] 18:39:00* Test Item Value Reference Range Interpretation [...] = MDIFF) NO, ONLY SCAN NEEDED DIFFERENTIAL [id number] 18:39:00* Test Item Value Reference Range Interpretation Comments STAIN ACCEPTABILITY (test code = STN ACCEPTABLE) CABOT RINGS (test code = CAB) MORPHOLOGY COMMENT (test code = MOC) PLATELET ESTIMATE (test code = PLTEST) PLATELET MORPHOLOGY (test code = PLTMORPH) CBC W/AUTO [id number] 18:39:00* Test Item Value Reference Range Interpretation [...] = MDIFF) NO, ONLY SCAN NEEDED DIFFERENTIAL [id number] 18:39:00* Test Item Value Reference Range Interpretation Comments STAIN ACCEPTABILITY (test code = STN ACCEPTABLE) MORPHOLOGY COMMENT (test code = MOC) PLATELET ESTIMATE (test code = PLTEST) PLATELET MORPHOLOGY (test code = PLTMORPH) CBC W/AUTO [id number] 18:39:00* Test Item Value Reference Range Interpretation [...] = MDIFF) NO, ONLY SCAN NEEDED DIFFERENTIAL [id number] 18:39:00* Test Item Value Reference Range Interpretation Comments STAIN ACCEPTABILITY (test code = STN ACCEPTABLE) MORPHOLOGY COMMENT (test code = MOC) PLATELET ESTIMATE (test code = PLTEST) PLATELET MORPHOLOGY (test code = PLTMORPH) CBC W/AUTO [id number] 18:39:00* Test Item Value Reference Range Interpretation [...] = MDIFF) NO, ONLY SCAN NEEDED DIFFERENTIAL [id number] 18:39:00* Test Item Value Reference Range Interpretation Comments STAIN ACCEPTABILITY (test code = STN ACCEPTABLE) CABOT RINGS (test code = CAB) MORPHOLOGY COMMENT (test code = MOC) PLATELET ESTIMATE (test code = PLTEST) PLATELET MORPHOLOGY (test code = PLTMORPH) COMPREHENSIVE METABOLIC [id number] 18:28:00* Test Item Value Reference Range Interpretation [...] (test code = LDL) mg/dL 100-129 Bedside Ckjpuse8455-95-20 07:27:00* Test Item Value Reference Range Interpretation Comments Bedside Glucose (test code = 05767-4) 111 70-120 Meter ID: [id number] [facility] Antibody, Wnxdf0130-30-53 10:55:00* Test Item Value Reference Range Interpretation Comments Hepatitis B Surface Antibody, Quant (test code = 5194-6) <3.0 Reference Range: Immunity>9.9 mIU/mLStatus of Immunity Anti-HBs Level Inconsistent with Immunity 0.0 - 9.9Consistent with Immunity >9.9[facility] Be Bzdeqkv3482-23-33 10:55:00* Test Item Value Reference Range Interpretation Comments Hepatitis Be Antigen (test code = 68944-8) Negative [facility] B Core Total Ooxtaiee0749-96-40 10:55:00* Test Item Value Reference Range Interpretation Comments Hepatitis B Core Total Antibody (test code = 65261-0) Negative [facility] B Core IgM Jnzlmivf3552-29-47 10:55:00* Test Item Value Reference Range Interpretation Comments Hepatitis B Core IgM Antibody (test code = 17800-4) Negative [facility] B Surface Antibody, Quant 2019-07-16 10:55:00* Test Item Value Reference Range Interpretation Comments Hepatitis B Surface Antibody, Quant (test code = 5194-6) <3.0 Reference Range: Immunity>9.9 mIU/mLStatus of Immunity Anti-HBs Level Inconsistent with Immunity 0.0 - 9.9Consistent with Immunity >9.9[facility] Be Iikvujr9444-09-65 10:55:00* Test Item Value Reference Range Interpretation Comments Hepatitis Be Antigen (test code = 27757-9) Negative [facility] B Surface Lvhwldw1855-34-85 08:44:00* Test Item Value Reference Range Interpretation Comments Hepatitis B Surface Antigen (test code = 5196-1) Negative Negat [place] [facility] Be Qbuwclmx0164-79-93 22:26:00 * Test Item Value Reference Range Interpretation Comments Hepatitis Be Antibody (test code = 09739-6) Negative Negative Performed at: [address] [id number] Lookback Coordinator: Dasha Lr MD, Phone: [phone] Heart & Surgical Hospitaltool Occult Bradw6115-56-83 09:51:00* Test Item Value Reference Range Interpretation Comments Stool Occult Blood (test code = 2335-8) NEGATIVE NEGATIVE [facility] Hospitaltool Occult Kwmpo9613-17-01 09:51:00* Test Item Value Reference Range Interpretation Comments Stool Occult Blood (test code = 2335-8) NEGATIVE NEGATIVE [facility] Hospitalodium Omoqx0233-57-08 06:41:00* Test Item Value Reference Range Interpretation Comments Sodium Level (test code = 2951-2) 136 136-145 [facility] Zjrmc4328-61-37 06:41:00* Test Item Value Reference Range Interpretation Comments Potassium Level (test code = 2823-3) 4.5 3.5-5.1 [facility] HospitalChloride Uxqxb8158-95-52 06:41:00* Test Item Value Reference Range Interpretation Comments Chloride Level (test code = 2075-0) 102 98-107 [facility] HospitalCarbon Dioxide Akwjt5713-79-83 06:41:00* Test Item Value Reference Range Interpretation Comments Carbon Dioxide Level (test code = 2028-9) 23 22-29 [facility] HospitalAnion Koa4385-03-69 06:41:00* Test Item Value Reference Range Interpretation Comments Anion Gap (test code = 40133-1) 15.5 8-16 [facility] HospitalBlood Urea Burwlekw0615-59-36 06:41:00* Test Item Value Reference Range Interpretation Comments Blood Urea Nitrogen (test code = 3094-0) 53 7-26 H [facility] HospitalCreatinine2019-12-16 06:41:00* Test Item Value Reference Range Interpretation Comments Creatinine (test code = 2160-0) 4.01 0.72-1.25 H [facility] HospitalBUN/Creatinine Wofxm3961-39-22 06:41:00* Test Item Value Reference Range Interpretation Comments BUN/Creatinine Ratio (test code = 3097-3) 13 6-25 [facility] HospitalEstimat Glomerular Filtration Rate 2019-07-15 06:41:00* Test Item Value Reference Range Interpretation Comments Estimat Glomerular Filtration Rate (test code = 745851562) 16 >60 L Ranges were taken from the National Kidney Disease Education Program and the [facility] [employer] literature.Reference ranges:60 or greater: Omlbzu07-24 ( for 3 consecutive months): Chronic kidney disease 15 or less: Kidney failureHouston Methodist HospitalGlucose Hxpzs7802-24-67 06:41:00* Test Item Value Reference Range Interpretation Comments Glucose Level (test code = RCM5912) 184 74-118 H [facility] HospitalCalcium Fzkxu9534-10-38 06:41:00* Test Item Value Reference Range Interpretation Comments Calcium Level (test code = 88614-6) 8.4 8.4-10.2 [facility] Hospitalto gastrointestinal hemoglobin gwbgnqlwg1080-98-09 05:30:00* Test Item Value Reference Range Interpretation Comments Stool Occult Blood (test code = 2335-8) NEGATIVE NEGATIVE [facility] gastrointestinal hemoglobin bgvrygjqj8070-33-06 05:30:00* Test Item Value Reference Range Interpretation Comments Stool Occult Blood (test code = 2335-8) NEGATIVE NEGATIVE [facility] gastrointestinal hemoglobin dclyhewtv8947-47-47 05:30:00* Test Item Value Reference Range Interpretation Comments Stool Occult Blood (test code = 2335-8) NEGATIVE NEGATIVE [facility] gastrointestinal hemoglobin qgzlzbdft0003-48-14 05:30:00* Test Item Value Reference Range Interpretation Comments Stool Occult Blood (test code = 2335-8) NEGATIVE NEGATIVE [facility] HospitalWhite Blood Nvdyx5603-43-70 08:59:00* Test Item Value Reference Range Interpretation Comments White Blood Count (test code = 6690-2) 4.18 4.8-10.8 L [facility] HospitalRed Blood Lgvvn9048-16-63 08:59:00* Test Item Value Reference Range Interpretation Comments Red Blood Count (test code = 789-8) 2.65 4.3-5.7 L [facility] HospitalHemoglobin2019-12-15 08:59:00* Test Item Value Reference Range Interpretation Comments Hemoglobin (test code = 98026-8) 8.2 14.0-18.0 L [facility] HospitalHematocrit2019-12-15 08:59:00* Test Item Value Reference Range Interpretation Comments Hematocrit (test code = 4544-3) 26.0 38.2-49.6 L [facility] HospitalMean Corpuscular Qimhoy9897-31-82 08:59:00* Test Item Value Reference Range Interpretation Comments Mean Corpuscular Volume (test code = 787-2) 98.1 81-99 [facility] HospitalMean Corpuscular Snizjnqdlh6964-17-23 08:59:00* Test Item Value Reference Range Interpretation Comments Mean Corpuscular Hemoglobin (test code = 785-6) 30.9 28-32 [facility] HospitalMean Corpuscular Hemoglobin Concent 2019-07-14 08:59:00* Test Item Value Reference Range Interpretation Comments Mean Corpuscular Hemoglobin Concent (test code = 786-4) 31.5 31-35 [facility] HospitalRed Cell Distribution Wpvcm1302-75-15 08:59:00* Test Item Value Reference Range Interpretation Comments Red Cell Distribution Width (test code = 71529-9) 18.4 11.7 -14.4 H [facility] HospitalPlatelet Giibv8994-39-18 08:59:00* Test Item Value Reference Range Interpretation Comments Platelet Count (test code = 777-3) 90 140-360 L [facility] HospitalNeutrophils (%) (Auto)2019-07-14 08:59:00 * Test Item Value Reference Range Interpretation Comments Neutrophils (%) (Auto) (test code = 23386-8) 72.3 38.7-80.0 [facility] HospitalLymphocytes (%) (Auto)2019-07-14 08:59:00 * Test Item Value Reference Range Interpretation Comments Lymphocytes (%) (Auto) (test code = 736-9) 12.2 18.0-39.1 L [facility] HospitalMonocytes (%) (Auto)2019-07-14 08:59:00* Test Item Value Reference Range Interpretation Comments Monocytes (%) (Auto) (test code = 5905-5) 10.3 4.4-11.3 [facility] HospitalEosinophils (%) (Auto)2019-07-14 08:59:00 * Test Item Value Reference Range Interpretation Comments Eosinophils (%) (Auto) (test code = 713-8) 4.5 0.0-6.0 [facility] HospitalBasophils (%) (Auto)2019-07-14 08:59:00* Test Item Value Reference Range Interpretation Comments Basophils (%) (Auto) (test code = 706-2) 0.5 0.0-1.0 [facility] HospitalIM GRANULOCYTES %2019-07-14 08:59:00* Test Item Value Reference Range Interpretation Comments IM GRANULOCYTES % (test code = IM GRANULOCYTES %) 0.2 0.0- 1.0 [facility] HospitalNeutrophils # (Auto)2019-07-14 08:59:00* Test Item Value Reference Range Interpretation Comments Neutrophils # (Auto) (test code = 751-8) 3.0 2.1-6.9 [facility] HospitalLymphocytes # (Auto)2019-07-14 08:59:00* Test Item Value Reference Range Interpretation Comments Lymphocytes # (Auto) (test code = 71368-0) 0.5 1.0-3.2 L [facility] HospitalMonocytes # (Auto)2019-07-14 08:59:00* Test Item Value Reference Range Interpretation Comments Monocytes # (Auto) (test code = 742-7) 0.4 0.2-0.8 [facility] HospitalEosinophils # (Auto)2019-07-14 08:59:00* Test Item Value Reference Range Interpretation Comments Eosinophils # (Auto) (test code = 711-2) 0.2 0.0-0.4 [facility] HospitalBasophils # (Auto)2019-07-14 08:59:00* Test Item Value Reference Range Interpretation Comments Basophils # (Auto) (test code = 704-7) 0.0 0.0-0.1 [facility] HospitalAbsolute Immature Granulocyte (auto 2019-07-14 08:59:00* Test Item Value Reference Range Interpretation Comments Absolute Immature Granulocyte (auto (rupinder t code = Absolute Immature Granulocyte (auto) 0.01 0-0.1 [facility] HospitalFerritin2019-12-14 09:20:00* Test Item Value Reference Range Interpretation Comments Ferritin (test code = 2276-4) 225.81 21.81-274.66 [facility] HospitalDifferential Total Cells Counted 2019-07-13 08:32:00* Test Item Value Reference Range Interpretation Comments Differential Total Cells Counted (test code = Differen tial Total Cells Counted) 100 [facility] HospitalNeutrophils % (Manual)2019-07-13 08:32:00 * Test Item Value Reference Range Interpretation Comments Neutrophils % (Manual) (test code = 58398-3) 80 40-74 H [facility] HospitalBand Neutrophils %2019-07-13 08:32:00* Test Item Value Reference Range Interpretation Comments Band Neutrophils % (test code = 764-1) 1 [facility] HospitalLymphocytes % (Manual)2019-07-13 08:32:00 * Test Item Value Reference Range Interpretation Comments Lymphocytes % (Manual) (test code = 737-7) 12 19-48 L [facility] HospitalMonocytes % (Manual)2019-07-13 08:32:00* Test Item Value Reference Range Interpretation Comments Monocytes % (Manual) (test code = 744-3) 5 3.4-9.0 [facility] HospitalEosinophils % (Manual)2019-07-13 08:32:00 * Test Item Value Reference Range Interpretation Comments Eosinophils % (Manual) (test code = 714-6) 2 0-7 [facility] HospitalPlatelet Jzdwjven2000-65-78 08:32:00* Test Item Value Reference Range Interpretation Comments Platelet Estimate (test code = 10490-8) MODERATELY DECREASED [facility] HospitalPlatelet Morphology Kuxlihp7598-35-47 08:32:00* Test Item Value Reference Range Interpretation Comments Platelet Morphology Comment (test code = 18856-0) NORMAL [facility] HospitalRed Cell Morphology Gayfnxd6172-21-74 08:32:00* Test Item Value Reference Range Interpretation Comments Red Cell Morphology Comment (test code = 6742-1) NORMAL [facility] HospitalBand Neutrophils %2019-07-13 08:32:00* Test Item Value Reference Range Interpretation Comments Band Neutrophils % (test code = 764-1) 1 [facility] HospitalIron Contr4492-36-93 06:35:00* Test Item Value Reference Range Interpretation Comments Iron Level (test code = 2498-4) 37 65-175 L [facility] HospitalTotal Iron Binding Jxubbsjf3758-68-01 06:35:00* Test Item Value Reference Range Interpretation Comments Total Iron Binding Capacity (test code = 2500-7) 246 261-4 78 L [facility] HospitalPercent Iron Rbnqqtayrb1084-28-75 06:35:00* Test Item Value Reference Range Interpretation Comments Percent Iron Saturation (test code = 2502-3) 15 15-50 [facility] HospitalTransferrin2019-12-14 06:35:00* Test Item Value Reference Range Interpretation Comments Transferrin (test code = 3034-6) 176 174-364 [facility] HospitalHemoglobin A1c Rvqtllk6309-76-59 06:33:00 * Test Item Value Reference Range Interpretation Comments Hemoglobin A1c Percent (test code = Hemoglobin A1c Percent) 6.7 4.0-7.0 [facility] HospitalHemoglobin A1c Fdxaqyi3103-63-79 06:33:00 * Test Item Value Reference Range Interpretation Comments Hemoglobin A1c Percent (test code = Hemoglobin A1c Percent) 6.7 4.0-7.0 [facility] HospitalManual blood band neutrophils form/100 jvwkjcbfkf3211-97-36 04:15:00* Test Item Value Reference Range Interpretation Comments Band Neutrophils % (test code = 764-1) 1 [facility] HospitalFluoroscopic procedure less than one hour ephvafry0503-30-10 04:15:00* Test Item Value Reference Range Interpretation Comments Hemoglobin A1c Percent (test code = Hemoglobin A1c Percent) 6.7 4.0-7.0 [facility] HospitalManual blood band neutrophils form/100 klnlrhrenf9672-72-61 04:15:00* Test Item Value Reference Range Interpretation Comments Band Neutrophils % (test code = 764-1) 1 [facility] HospitalFluoroscopic procedure less than one hour eakbqope7969-58-49 04:15:00* Test Item Value Reference Range Interpretation Comments Hemoglobin A1c Percent (test code = Hemoglobin A1c Percent) 6.7 4.0-7.0 [facility] HospitalManual blood band neutrophils form/100 muxenodbbd3217-20-72 04:15:00* Test Item Value Reference Range Interpretation Comments Band Neutrophils % (test code = 764-1) 1 [facility] HospitalFluoroscopic procedure less than one hour okyidbfs6028-96-31 04:15:00* Test Item Value Reference Range Interpretation Comments Hemoglobin A1c Percent (test code = Hemoglobin A1c Percent) 6.7 4.0-7.0 [facility] HospitalManual blood band neutrophils form/100 sibamonfjq1221-57-06 04:15:00* Test Item Value Reference Range Interpretation Comments Band Neutrophils % (test code = 764-1) 1 [facility] HospitalFluoroscopic procedure less than one hour tfecrovx3324-43-20 04:15:00* Test Item Value Reference Range Interpretation Comments Hemoglobin A1c Percent (test code = Hemoglobin A1c Percent) 6.7 4.0-7.0 [facility] HospitalCT ABDOMEN/PELVIS UV4877-75-43 15:37:00 [place] [address] Patient Name: DIGNA LAMB MR #: [id number] : 1965 Age/Sex: 54/M Req #: [id number] Adm Physician: CINDY ALVAREZ MD Ordered by: CINDY ALVAREZ MD Report #: [id number] Location: MED/SURG3 Room/Bed: [facility] Procedure: 1213-[address]/CT ABDOMEN/PELVIS WO Exam [...] COPY TO: CINDY ALVAREZ MD CT CHEST QV6291-23-49 15:37:00 [place] [address] Patient Name: VIOLETTE LAMB MR #: [id number] : 1965 Age/Sex: 54/M Req #: [id number] Adm Physician: CINDY ALVAREZ MD Ordered by: CINDY ALVAREZ MD Report #: [id number] Location: [place] [address] Room/Bed: [facility] Procedure: 1213-[address]/CT CHEST WO Exam [...] COPY TO: CINDY ALVAREZ MD Vitamin B12 Ooqxy9336-99-48 10:47:00* Test Item Value Reference Range Interpretation Comments Vitamin B12 Level (test code = 16838-7) 710 213-248 [facility] HospitalThyroid Stimulating Hormone (TSH) 2019-07-12 10:29:00* Test Item Value Reference Range Interpretation Comments Thyroid Stimulating Hormone (TSH) (test code = 56315-2) 1.875 0.350-4.940 [facility] HospitalThyroid Stimulating Hormone (TSH) 2019-07-12 10:29:00* Test Item Value Reference Range Interpretation Comments Thyroid Stimulating Hormone (TSH) (test code = 56230-8) 1.875 0.350-4.940 [facility] Hospitalerum or plasma thyrotropin measurement by detection limit <= 0.005 miu/l (units/volume)2019-07-12 04:15:00* Test Item Value Reference Range Interpretation Comments Thyroid Stimulating Hormone (TSH) (test code = 85404-0) 1.875 0.350-4.940 [facility] Hospitalerum or plasma thyrotropin measurement by detection limit <= 0.005 miu/l (units/volume)2019-07-12 04:15:00* Test Item Value Reference Range Interpretation Comments Thyroid Stimulating Hormone (TSH) (test code = 58694-7) 1.875 0.350-4.940 [facility] Hospitalerum or plasma thyrotropin measurement by detection limit <= 0.005 miu/l (units/volume)2019-07-12 04:15:00* Test Item Value Reference Range Interpretation Comments Thyroid Stimulating Hormone (TSH) (test code = 07615-6) 1.875 0.350-4.940 [facility] Hospitalerum or plasma thyrotropin measurement by detection limit <= 0.005 miu/l (units/volume)2019-07-12 04:15:00* Test Item Value Reference Range Interpretation Comments Thyroid Stimulating Hormone (TSH) (test code = 56549-5) 1.875 0.350-4.940 [facility] HospitalTotal Nhvybtyei5265-89-64 21:11:00* Test Item Value Reference Range Interpretation Comments Total Bilirubin (test code = 1975-2) 1.7 0.2-1.2 H [facility] HospitalDirect Weqnlwovp6625-71-28 21:11:00* Test Item Value Reference Range Interpretation Comments Direct Bilirubin (test code = 37807-5) 1.4 0.0-0.5 H [facility] HospitalAspartate Amino Transf (AST/SGOT) 2019-07-11 21:11:00* Test Item Value Reference Range Interpretation Comments Aspartate Amino Transf (AST/SGOT) (test code = Aspartate Amino Transf (AST/SGOT)) 28 5-34 [facility] HospitalAlanine Aminotransferase (ALT/SGPT) 2019-07-11 21:11:00* Test Item Value Reference Range Interpretation Comments Alanine Aminotransferase (ALT/SGPT) (test code = 1742-6) 50 0-55 [facility] HospitalTotal Oszbaup5506-27-15 21:11:00* Test Item Value Reference Range Interpretation Comments Total Protein (test code = 2885-2) 6.5 6.5-8.1 [facility] HospitalAlbumin2019-12-12 21:11:00* Test Item Value Reference Range Interpretation Comments Albumin (test code = 1751-7) 2.7 3.5-5.0 L [facility] HospitalAlkaline Albhprxvemc0644-31-94 21:11:00* Test Item Value Reference Range Interpretation Comments Alkaline Phosphatase (test code = 6768-6) 714 40-150 H [facility] Hospitalerum hepatitis B virus surface antibody assay by radioimmunoassay (units/volume)2019-07-11 19:36:00* Test Item Value Reference Range Interpretation Comments Hepatitis B Surface Antibody, Quant (test code = 5194-6) <3.0 Reference Range: Immunity>9.9 mIU/mLStatus of Immunity Anti-HBs Level Inconsistent with Immunity 0.0 - 9.9Consistent with Immunity >9.9[facility] B virus e antigen detection by enzyme immunoassay 2019-07-11 19:36:00* Test Item Value Reference Range Interpretation Comments Hepatitis Be Antigen (test code = 52063-0) Negative [facility] virus surface antibody assay by radioimmunoassay (units/volume)2019-07-11 19:36:00* Test Item Value Reference Range Interpretation Comments Hepatitis B Surface Antibody, Quant (test code = 5194-6) <3.0 Reference Range: Immunity>9.9 mIU/mLStatus of Immunity Anti-HBs Level Inconsistent with Immunity 0.0 - 9.9Consistent with Immunity >9.9[facility]ererum hepatitis B virus e antigen detection by enzyme immunoassay 2019-07-11 19:36:00* Test Item Value Reference Range Interpretation Comments Hepatitis Be Antigen (test code = 27130-5) Negative [facility] hepatitis B virus surface antibody assay by radioimmunoassay (units/volume)2019-07-11 19:36:00* Test Item Value Reference Range Interpretation Comments Hepatitis B Surface Antibody, Quant (test code = 5194-6) <3.0 Reference Range: Immunity>9.9 mIU/mLStatus of Immunity Anti-HBs Level Inconsistent with Immunity 0.0 - 9.9Consistent with Immunity >9.9[facility] Centererum hepatitis B virus e antigen detection by enzyme immunoassay 2019-07-11 19:36:00* Test Item Value Reference Range Interpretation Comments Hepatitis Be Antigen (test code = 95062-9) Negative [facility] hepatitis B virus surface antibody assay by radioimmunoassay (units/volume)2019-07-11 19:36:00* Test Item Value Reference Range Interpretation Comments Hepatitis B Surface Antibody, Quant (test code = 5194-6) <3.0 Reference Range: Immunity>9.9 mIU/mLStatus of Immunity Anti-HBs Level Inconsistent with Immunity 0.0 - 9.9Consistent with Immunity >9.9[facility] B virus e antigen detection by enzyme immunoassay 2019-07-11 19:36:00* Test Item Value Reference Range Interpretation Comments Hepatitis Be Antigen (test code = 67593-4) Negative [facility] Kin[facility] [id number] 12:55:00* Test Item Value Reference Range Interpretation Comments Creatine Kinase MB (test code = 82956-7) 4.00 0-5.0 [facility] HospitalTroponin U0710-03-75 12:55:00* Test Item Value Reference Range Interpretation Comments Troponin I (test code = EQN0784) 0.032 0-0.300 [facility] HospitalB[facility] Natriuretic Oqoocms1270-69-95 12:48:00* Test Item Value Reference Range Interpretation Comments B-Type Natriuretic Peptide (test code = 92667-1) 3663.2 0-100 H [facility] Syltyib8129-82-78 12:48:00* Test Item Value Reference Range Interpretation Comments B-Type Natriuretic Peptide (test code = 30638-6) 3663.2 0-100 H [facility] HospitalUrine MQP7965-95-10 12:46:00* Test Item Value Reference Range Interpretation Comments Urine WBC (test code = 5821-4) 6-10 0-5 H [facility] HospitalU[facility] [id number] 12:46:00* Test Item Value Reference Range Interpretation Comments Urine RBC (test code = 00630-1) 0-5 0-5 [facility] HospitalU[facility] Xfcirdur5005-32-32 12:46:00* Test Item Value Reference Range Interpretation Comments Urine Bacteria (test code = 74753-4) FEW NONE [facility] HospitalUrine Epithelial Gcvac0129-04-05 12:46:00 * Test Item Value Reference Range Interpretation Comments Urine Epithelial Cells (test code = 51388-5) FEW NONE [facility] KOY7461-29-13 12:46:00* Test Item Value Reference Range Interpretation Comments Urine WBC (test code = 5821-4) 6-10 0-5 H [facility] HospitalU[facility] IDD9731-89-60 12:46:00* Test Item Value Reference Range Interpretation Comments Urine RBC (test code = 46934-8) 0-5 0-5 [facility] Krfyzukh8487-42-42 12:46:00* Test Item Value Reference Range Interpretation Comments Urine Bacteria (test code = 19648-4) FEW NONE [facility] HospitalUrine Epithelial Gcalw1015-11-65 12:46:00 * Test Item Value Reference Range Interpretation Comments Urine Epithelial Cells (test code = 45355-1) FEW NONE [facility] HospitalU[facility] Pbgss8967-59-55 12:43:00* Test Item Value Reference Range Interpretation Comments Urine Color (test code = 5778-6) YELLOW YELLOW [facility] Llmbyol6392-58-55 12:43:00* Test Item Value Reference Range Interpretation Comments Urine Clarity (test code = 77214-3) SL CLOUDY CLEAR H [facility] HospitalUrine Specific Iegkbku1331-81-70 12:43:00 * Test Item Value Reference Range Interpretation Comments Urine Specific [place] (test code = 5811-5) 1.025 1.010-1.02 5 [facility] HospitalU[facility] qB8783-52-15 12:43:00* Test Item Value Reference Range Interpretation Comments Urine pH (test code = 78513-9) 6 5-7 [facility] HospitalU[facility] Leukocyte Rvbthyol9397-73-63 12:43:00* Test Item Value Reference Range Interpretation Comments Urine Leukocyte Esterase (test code = 5799-2) MODERATE NEGATIVE [facility] HospitalU[facility] Bmkkfwr3761-92-25 12:43:00* Test Item Value Reference Range Interpretation Comments Urine Nitrite (test code = 59624-3) NEGATIVE NEGATIVE [facility] HospitalU[facility] Yuljown0986-57-08 12:43:00* Test Item Value Reference Range Interpretation Comments Urine Protein (test code = 5804-0) 2+ NEGATIVE H [facility] Glucose (UA)2019-07-11 12:43:00* Test Item Value Reference Range Interpretation Comments Urine Glucose (UA) (test code = 2349-9) 1+ NEGATIVE H [facility] Mjrwtbr8416-69-05 12:43:00* Test Item Value Reference Range Interpretation Comments Urine Ketones (test code = 19156-6) NEGATIVE NEGATIVE [facility] Imgkfhpesorh0344-85-70 12:43:00* Test Item Value Reference Range Interpretation Comments Urine Urobilinogen (test code = 17756-1) 0.2 0.2-1 [facility] Qwmixoqoy9313-65-46 12:43:00* Test Item Value Reference Range Interpretation Comments Urine Bilirubin (test code = 1978-6) SMALL NEGATIVE [facility] Lwcwn2878-38-82 12:43:00* Test Item Value Reference Range Interpretation Comments Urine Blood (test code = 19041-3) MODERATE NEGATIVE [facility] Ilwix8027-70-27 12:43:00* Test Item Value Reference Range Interpretation Comments Urine Color (test code = 5778-6) YELLOW YELLOW [facility] Xomzqft8604-96-94 12:43:00* Test Item Value Reference Range Interpretation Comments Urine Clarity (test code = 83022-9) SL CLOUDY CLEAR H [facility] HospitalUrine Specific Hnbzxvn6896-26-83 12:43:00 * Test Item Value Reference Range Interpretation Comments Urine Specific [place] (test code = 5811-5) 1.025 1.010-1.02 5 [facility] HospitalU[facility] kU0449-22-45 12:43:00* Test Item Value Reference Range Interpretation Comments Urine pH (test code = 28542-6) 6 5-7 [facility] HospitalU[facility] Leukocyte Ablmdymw7306-28-36 12:43:00* Test Item Value Reference Range Interpretation Comments Urine Leukocyte Esterase (test code = 5799-2) MODERATE NEGATIVE [facility] HospitalU[facility] Wcvzwuf7044-57-28 12:43:00* Test Item Value Reference Range Interpretation Comments Urine Nitrite (test code = 54514-1) NEGATIVE NEGATIVE [facility] HospitalU[facility] Bodblrq7279-06-21 12:43:00* Test Item Value Reference Range Interpretation Comments Urine Protein (test code = 5804-0) 2+ NEGATIVE H [facility] HospitalUrine Glucose (UA)2019-07-11 12:43:00* Test Item Value Reference Range Interpretation Comments Urine Glucose (UA) (test code = 2349-9) 1+ NEGATIVE H [facility] HospitalU[facility] Hcheuce6423-53-41 12:43:00* Test Item Value Reference Range Interpretation Comments Urine Ketones (test code = 77792-4) NEGATIVE NEGATIVE [facility] HospitalU[facility] Axlydtbjxcut9540-81-87 12:43:00* Test Item Value Reference Range Interpretation Comments Urine Urobilinogen (test code = 06714-2) 0.2 0.2-1 [facility] Kwjywfwhq6943-68-35 12:43:00* Test Item Value Reference Range Interpretation Comments Urine Bilirubin (test code = 1978-6) SMALL NEGATIVE [facility] HospitalU[facility] Vpnef5679-72-12 12:43:00* Test Item Value Reference Range Interpretation Comments Urine Blood (test code = 01165-7) MODERATE NEGATIVE [facility] HospitalInfluenza Virus Types A,B Antigen 2019-07-11 12:41:00* Test Item Value Reference Range Interpretation Comments Influenza Virus Types A,B Antigen (test code = 48657-3) NEGATIVE NEGATIVE [facility] HospitalMagnesium Iszzg2262-00-09 12:41:00* Test Item Value Reference Range Interpretation Comments Magnesium Level (test code = 69022-8) 2.0 1.3-2.1 [facility] HospitalGlobulin2019-12-12 12:41:00* Test Item Value Reference Range Interpretation Comments Globulin (test code = 76818-7) 3.9 2.3-3.5 H [facility] HospitalAlbumin/Globulin Byxuj6990-66-98 12:41:00 * Test Item Value Reference Range Interpretation Comments Albumin/Globulin Ratio (test code = 1759-0) 0.7 0.8-2.0 L [facility] HospitalCreatine Mppksy9980-58-53 12:41:00* Test Item Value Reference Range Interpretation Comments Creatine Kinase (test code = 2157-6) 97 30-200 [facility] HospitalGroup A Streptococcus Wqmkad0657-43-15 12:41:00* Test Item Value Reference Range Interpretation Comments Group A Streptococcus Screen (test code = 89225-0) NEGATIVE NEG ATIVE [facility] HospitalMagnesium Wqlmx3184-97-64 12:41:00* Test Item Value Reference Range Interpretation Comments Magnesium Level (test code = 12852-4) 2.0 1.3-2.1 [facility] HospitalGroup A Streptococcus Nbeznd0919-52-72 12:41:00* Test Item Value Reference Range Interpretation Comments Group A Streptococcus Screen (test code = 57276-5) NEGATIVE NEG ATIVE [facility] HospitalProthrombin Gwqa7297-28-97 12:22:00* Test Item Value Reference Range Interpretation Comments Prothrombin Time (test code = 5902-2) 14.6 11.9-14.5 H [facility] HospitalProthromb Time International Ratio 2019-07-11 12:22:00* Test Item Value Reference Range Interpretation Comments Prothromb Time International Ratio (test code = 6301-6) 1.09 Oral Anticoagulant Therapy INR Values:1. Low Intensity Therapy 1.5 - 2.02 . Moderate Intensity Therapy 2.0 - 3.03. High Intensity Therapy(1) 2.5 - 3. 54. High Intensity Therapy(2) 3.0 - 4.05. Panic Value INR > 5.0 [facility] HospitalActivated Partial Thromboplast Time 2019-07-11 12:22:00* Test Item Value Reference Range Interpretation Comments Activated Partial Thromboplast Time (test code = 11266-3) 28.9 23.8-35.5 [facility] HospitalCHEST [facility]INGLE (PORTABLE)2019-07-11 11:31:00 [place] [address] Patient Name: VIOLETTE LAMB MR #: [id number] : 1965 Age/Sex: 54/M Req #: [id number] Adm Physician: Ordered by: GERALDINE GIRON NP Report #: [id number] Location: ER Room/Bed: Procedure: DX/CHEST SINGLE (PORTABLE) [...] Interpretation Comments Magnesium Level (test code = 73262-6) 2.0 1.3-2.1 [facility] Elk-lNit7628-95-12 11:00:00* Test Item Value Reference Range Interpretation Comments B-Type Natriuretic Peptide (test code = 78577-4) 3663.2 0-100 [facility] Hospitaltreptococcus pyogenes antigen detection in gueqrz7161-79-42 11:00:00* Test Item Value Reference Range Interpretation Comments Group A Streptococcus Screen (test code = 56611-5) NEGATIVE NEG ATIVE [facility] Hospitalerum or plasma magnesium measurement (mass/volume)2019-07-11 11:00:00* Test Item Value Reference Range Interpretation Comments Magnesium Level (test code = 27825-4) 2.0 1.3-2.1 [facility]2019-12-12 11:00:00* Test Item Value Reference Range Interpretation Comments B-Type Natriuretic Peptide (test code = 73689-7) 3663.2 0-100 [facility] Hospitaltreptococcus pyogenes antigen detection in rghyfo1537-07-76 11:00:00* Test Item Value Reference Range Interpretation Comments Group A Streptococcus Screen (test code = 13438-3) NEGATIVE NEG ATIVE [facility] Hospitalerum or plasma magnesium measurement (mass/volume)2019-07-11 11:00:00* Test Item Value Reference Range Interpretation Comments Magnesium Level (test code = 88850-9) 2.0 1.3-2.1 [facility]2019-12-12 11:00:00* Test Item Value Reference Range Interpretation Comments B-Type Natriuretic Peptide (test code = 12299-2) 3663.2 0-100 [facility] Hospitaltreptococcus pyogenes antigen detection in kfjvdv5211-43-00 11:00:00* Test Item Value Reference Range Interpretation Comments Group A Streptococcus Screen (test code = 88879-3) NEGATIVE NEG ATIVE [facility] Hospitalerum or plasma magnesium measurement (mass/volume)2019-07-11 11:00:00* Test Item Value Reference Range Interpretation Comments Magnesium Level (test code = 04530-7) 2.0 1.3-2.1 [facility]2019-12-12 11:00:00* Test Item Value Reference Range Interpretation Comments B-Type Natriuretic Peptide (test code = 97492-4) 3663.2 0-100 [facility] Hospitaltreptococcus pyogenes antigen detection in fqsiac9412-65-83 11:00:00* Test Item Value Reference Range Interpretation Comments Group A Streptococcus Screen (test code = 63981-5) NEGATIVE NEG ATIVE [facility] HospitalUrine color bzcfpshfbnerr7471-50-17 10:51:00* Test Item Value Reference Range Interpretation Comments Urine Color (test code = 5778-6) YELLOW YELLOW [facility] HospitalUrine hraclsy6410-77-19 10:51:00* Test Item Value Reference Range Interpretation Comments Urine Clarity (test code = 86919-4) SL CLOUDY CLEAR [facility] Hospitalpecific gravity of Urine by Test strip 2019-07-11 10:51:00* Test Item Value Reference Range Interpretation Comments Urine Specific [place] (test code = 5811-5) 1.025 1.010-1.02 5 [facility] HospitalUrine pH measurement by automated test elfmd6452-46-39 10:51:00* Test Item Value Reference Range Interpretation Comments Urine pH (test code = 27114-1) 6 5-7 [facility] HospitalUrine leukocyte esterase detection by fchwgymb6041-61-99 10:51:00* Test Item Value Reference Range Interpretation Comments Urine Leukocyte Esterase (test code = 5799-2) MODERATE NEGATIVE [facility] HospitalUrine nitrite mydiavurm2350-15-02 10:51:00* Test Item Value Reference Range Interpretation Comments Urine Nitrite (test code = 57562-6) NEGATIVE NEGATIVE [facility] HospitalUrine protein measurement by test strip (mass/volume)2019-07-11 10:51:00* Test Item Value Reference Range Interpretation Comments Urine Protein (test code = 5804-0) 2+ NEGATIVE [facility] HospitalUrine glucose lxlpqzcyk3873-15-14 10:51:00* Test Item Value Reference Range Interpretation Comments Urine Glucose (UA) (test code = 2349-9) 1+ NEGATIVE [facility] HospitalUrine ketones detection by automated test ztedq6497-09-68 10:51:00* Test Item Value Reference Range Interpretation Comments Urine Ketones (test code = 30417-1) NEGATIVE NEGATIVE [facility] HospitalUrine urobilinogen measurement by test strip (mass/volume)2019-07-11 10:51:00* Test Item Value Reference Range Interpretation Comments Urine Urobilinogen (test code = 09761-6) 0.2 0.2-1 [facility] HospitalUrine total bilirubin measurement (mass/volume)2019-07-11 10:51:00* Test Item Value Reference Range Interpretation Comments Urine Bilirubin (test code = 1978-6) SMALL NEGATIVE [facility] HospitalUrine erythrocytes rxmafzcwc4027-05-67 10:51:00* Test Item Value Reference Range Interpretation Comments Urine Blood (test code = 47079-9) MODERATE NEGATIVE [facility] HospitalAutomated urine sediment leukocyte count by microscopy (number/high power field)2019-07-11 10:51:00* Test Item Value Reference Range Interpretation Comments Urine WBC (test code = 5821-4) 6-10 0-5 [facility] HospitalErythrocytes detection in urine sediment by light szygynytpm2947-06-41 10:51:00* Test Item Value Reference Range Interpretation Comments Urine RBC (test code = 03181-1) 0-5 0-5 [facility] HospitalBacteria detection in urine sediment by light sjtyistuvr6148-88-66 10:51:00* Test Item Value Reference Range Interpretation Comments Urine Bacteria (test code = 35476-8) FEW NONE [facility] HospitalEpithelial cells detection in urine sediment by light syegasqjsz9709-78-39 10:51:00* Test Item Value Reference Range Interpretation Comments Urine Epithelial Cells (test code = 23316-7) FEW NONE [facility] HospitalUrine color mktgdhgpzzlru8927-12-06 10:51:00* Test Item Value Reference Range Interpretation Comments Urine Color (test code = 5778-6) YELLOW YELLOW [facility] HospitalUrine aewjzik4932-83-32 10:51:00* Test Item Value Reference Range Interpretation Comments Urine Clarity (test code = 44034-7) SL CLOUDY CLEAR [facility] Hospitalpecific gravity of Urine by Test strip 2019-07-11 10:51:00* Test Item Value Reference Range Interpretation Comments Urine Specific [place] (test code = 5811-5) 1.025 1.010-1.02 5 [facility] HospitalUrine pH measurement by automated test wnprq3109-72-21 10:51:00* Test Item Value Reference Range Interpretation Comments Urine pH (test code = 33083-9) 6 5-7 [facility] HospitalUrine leukocyte esterase detection by baxteqpz2370-10-65 10:51:00* Test Item Value Reference Range Interpretation Comments Urine Leukocyte Esterase (test code = 5799-2) MODERATE NEGATIVE [facility] HospitalUrine nitrite yhcjqtipq9347-74-70 10:51:00* Test Item Value Reference Range Interpretation Comments Urine Nitrite (test code = 38396-8) NEGATIVE NEGATIVE [facility] HospitalUrine protein measurement by test strip (mass/volume)2019-07-11 10:51:00* Test Item Value Reference Range Interpretation Comments Urine Protein (test code = 5804-0) 2+ NEGATIVE [facility] HospitalUrine glucose qoqteicgq5176-27-22 10:51:00* Test Item Value Reference Range Interpretation Comments Urine Glucose (UA) (test code = 2349-9) 1+ NEGATIVE [facility] HospitalUrine ketones detection by automated test fhqzn3760-63-17 10:51:00* Test Item Value Reference Range Interpretation Comments Urine Ketones (test code = 62687-0) NEGATIVE NEGATIVE [facility] HospitalUrine urobilinogen measurement by test strip (mass/volume)2019-07-11 10:51:00* Test Item Value Reference Range Interpretation Comments Urine Urobilinogen (test code = 10432-7) 0.2 0.2-1 [facility] HospitalUrine total bilirubin measurement (mass/volume)2019-07-11 10:51:00* Test Item Value Reference Range Interpretation Comments Urine Bilirubin (test code = 1978-6) SMALL NEGATIVE [facility] HospitalUrine erythrocytes iswgzoczq0124-86-74 10:51:00* Test Item Value Reference Range Interpretation Comments Urine Blood (test code = 24886-8) MODERATE NEGATIVE [facility] HospitalAutomated urine sediment leukocyte count by microscopy (number/high power field)2019-07-11 10:51:00* Test Item Value Reference Range Interpretation Comments Urine WBC (test code = 5821-4) 6-10 0-5 [facility] HospitalErythrocytes detection in urine sediment by light repsoyixmu3536-23-04 10:51:00* Test Item Value Reference Range Interpretation Comments Urine RBC (test code = 51102-2) 0-5 0-5 [facility] HospitalBacteria detection in urine sediment by light rouwicussk7587-69-79 10:51:00* Test Item Value Reference Range Interpretation Comments Urine Bacteria (test code = 07792-8) FEW NONE [facility] HospitalEpithelial cells detection in urine sediment by light hbpthnlwjp7660-98-58 10:51:00* Test Item Value Reference Range Interpretation Comments Urine Epithelial Cells (test code = 05578-2) FEW NONE [facility] HospitalUrine color ylwiyewvxelfh6210-74-11 10:51:00* Test Item Value Reference Range Interpretation Comments Urine Color (test code = 5778-6) YELLOW YELLOW [facility] HospitalUrine bhgexfg8224-07-11 10:51:00* Test Item Value Reference Range Interpretation Comments Urine Clarity (test code = 95278-5) SL CLOUDY CLEAR [facility] Hospitalpecific gravity of Urine by Test strip 2019-07-11 10:51:00* Test Item Value Reference Range Interpretation Comments Urine Specific [place] (test code = 5811-5) 1.025 1.010-1.02 5 [facility] HospitalUrine pH measurement by automated test kulzk3513-59-97 10:51:00* Test Item Value Reference Range Interpretation Comments Urine pH (test code = 13219-7) 6 5-7 [facility] HospitalUrine leukocyte esterase detection by jqojiieb3923-99-94 10:51:00* Test Item Value Reference Range Interpretation Comments Urine Leukocyte Esterase (test code = 5799-2) MODERATE NEGATIVE [facility] HospitalUrine nitrite kmmyrofof5552-02-68 10:51:00* Test Item Value Reference Range Interpretation Comments Urine Nitrite (test code = 97589-5) NEGATIVE NEGATIVE [facility] HospitalUrine protein measurement by test strip (mass/volume)2019-07-11 10:51:00* Test Item Value Reference Range Interpretation Comments Urine Protein (test code = 5804-0) 2+ NEGATIVE [facility] HospitalUrine glucose tgleyewrh8689-15-95 10:51:00* Test Item Value Reference Range Interpretation Comments Urine Glucose (UA) (test code = 2349-9) 1+ NEGATIVE [facility] HospitalUrine ketones detection by automated test veqze4171-31-06 10:51:00* Test Item Value Reference Range Interpretation Comments Urine Ketones (test code = 52997-0) NEGATIVE NEGATIVE [facility] HospitalUrine urobilinogen measurement by test strip (mass/volume)2019-07-11 10:51:00* Test Item Value Reference Range Interpretation Comments Urine Urobilinogen (test code = 41722-9) 0.2 0.2-1 [facility] HospitalUrine total bilirubin measurement (mass/volume)2019-07-11 10:51:00* Test Item Value Reference Range Interpretation Comments Urine Bilirubin (test code = 1978-6) SMALL NEGATIVE [facility] HospitalUrine erythrocytes mwptdklbd6691-38-35 10:51:00* Test Item Value Reference Range Interpretation Comments Urine Blood (test code = 00820-9) MODERATE NEGATIVE [facility] HospitalAutomated urine sediment leukocyte count by microscopy (number/high power field)2019-07-11 10:51:00* Test Item Value Reference Range Interpretation Comments Urine WBC (test code = 5821-4) 6-10 0-5 [facility] HospitalErythrocytes detection in urine sediment by light khuemcmvyu6524-93-16 10:51:00* Test Item Value Reference Range Interpretation Comments Urine RBC (test code = 67457-1) 0-5 0-5 [facility] HospitalBacteria detection in urine sediment by light agszksmepr6105-77-29 10:51:00* Test Item Value Reference Range Interpretation Comments Urine Bacteria (test code = 64530-2) FEW NONE [facility] HospitalEpithelial cells detection in urine sediment by light bwvfdtrqit5989-01-38 10:51:00* Test Item Value Reference Range Interpretation Comments Urine Epithelial Cells (test code = 99571-5) FEW NONE [facility] HospitalUrine color cpagcvsypstto3128-47-84 10:51:00* Test Item Value Reference Range Interpretation Comments Urine Color (test code = 5778-6) YELLOW YELLOW [facility] HospitalUrine fqhuybi4638-67-17 10:51:00* Test Item Value Reference Range Interpretation Comments Urine Clarity (test code = 19461-0) SL CLOUDY CLEAR [facility] Hospitalpecific gravity of Urine by Test strip 2019-07-11 10:51:00* Test Item Value Reference Range Interpretation Comments Urine Specific [place] (test code = 5811-5) 1.025 1.010-1.02 5 [facility] HospitalUrine pH measurement by automated test jrhov2079-40-58 10:51:00* Test Item Value Reference Range Interpretation Comments Urine pH (test code = 04764-4) 6 5-7 [facility] HospitalUrine leukocyte esterase detection by oukfzusm1287-13-13 10:51:00* Test Item Value Reference Range Interpretation Comments Urine Leukocyte Esterase (test code = 5799-2) MODERATE NEGATIVE [facility] HospitalUrine nitrite ulfkqmorc1750-01-58 10:51:00* Test Item Value Reference Range Interpretation Comments Urine Nitrite (test code = 25661-7) NEGATIVE NEGATIVE [facility] HospitalUrine protein measurement by test strip (mass/volume)2019-07-11 10:51:00* Test Item Value Reference Range Interpretation Comments Urine Protein (test code = 5804-0) 2+ NEGATIVE [facility] HospitalUrine glucose vtzsgggix2675-61-11 10:51:00* Test Item Value Reference Range Interpretation Comments Urine Glucose (UA) (test code = 2349-9) 1+ NEGATIVE [facility] ket[facility] detection by automated test [id number] 10:51:00* Test Item Value Reference Range Interpretation Comments Urine Ketones (test code = 51587-6) NEGATIVE NEGATIVE [facility] urobilinogen measurement by test strip (mass/volume)2019-07-11 10:51:00* Test Item Value Reference Range Interpretation Comments Urine Urobilinogen (test code = 43681-7) 0.2 0.2-1 [facility] total bilirubin measurement (mass/volume)2019-07-11 10:51:00* Test Item Value Reference Range Interpretation Comments Urine Bilirubin (test code = 1978-6) SMALL NEGATIVE [facility] erythrocytes [id number] 10:51:00* Test Item Value Reference Range Interpretation Comments Urine Blood (test code = 33260-5) MODERATE NEGATIVE [facility]Automated urine sediment leukocyte count by microscopy (number/high power field)2019-07-11 10:51:00* Test Item Value Reference Range Interpretation Comments Urine WBC (test code = 5821-4) 6-10 0-5 [facility]Erythrocytes detection in urine sediment by light [id number] 10:51:00* Test Item Value Reference Range Interpretation Comments Urine RBC (test code = 84233-3) 0-5 0-5 [facility] HospitalBacteria detection in urine sediment by light [id number] 10:51:00* Test Item Value Reference Range Interpretation Comments Urine Bacteria (test code = 77808-1) FEW NONE [facility] HospitalEpithelial cells detection in urine sediment by light [id number] 10:51:00* Test Item Value Reference Range Interpretation Comments Urine Epithelial Cells (test code = 04829-7) FEW NONE [facility] [id number] 15:21:00* Test Item Value Reference Range Interpretation Comments Sodium Level (test code = 2951-2) 137 136-145 [facility]Potassium [id number] 15:21:00* Test Item Value Reference Range Interpretation Comments Potassium Level (test code = 2823-3) 3.8 3.5-5.1 [facility] HospitalChloride [id number] 15:21:00* Test Item Value Reference Range Interpretation Comments Chloride Level (test code = 2075-0) 97 98-107 L [facility] HospitalCarbon Dioxide [id number] 15:21:00* Test Item Value Reference Range Interpretation Comments Carbon Dioxide Level (test code = 2028-9) 29 22-29 [facility] HospitalAnion [id number] 15:21:00* Test Item Value Reference Range Interpretation Comments Anion Gap (test code = 92395-7) 14.8 8-16 [facility] HospitalBlood Urea [id number] 15:21:00* Test Item Value Reference Range Interpretation Comments Blood Urea Nitrogen (test code = 3094-0) 28 7-26 H [facility] HospitalCreatinine2019-11-18 15:21:00* Test Item Value Reference Range Interpretation Comments Creatinine (test code = 2160-0) 4.43 0.72-1.25 H [facility] HospitalBUN/Creatinine [id number] 15:21:00* Test Item Value Reference Range Interpretation Comments BUN/Creatinine Ratio (test code = 3097-3) 6 6-25 [facility] HospitalEstimat Glomerular Filtration Rate 2019-06-17 15:21:00* Test Item Value Reference Range Interpretation Comments Estimat Glomerular Filtration Rate (test code = 467076646) 14 >60 L Ranges were taken from the National Kidney Disease Education Program and the [facility] literature.Reference ranges:60 or greater: Iddrau00-27 ( for 3 consecutive months): Chronic kidney disease 15 or less: Kidney failureHouston Methodist HospitalGlucose [id number] 15:21:00* Test Item Value Reference Range Interpretation Comments Glucose Level (test code = UTH9792) 125 74-118 H [facility] HospitalCalcium [id number] 15:21:00* Test Item Value Reference Range Interpretation Comments Calcium Level (test code = 23661-7) 9.2 8.4-10.2 [facility]
[2020-01-03 15:49] LABS: BASOPHILS % 0.6 % (0.0-1.0); EOSINOPHILS # (AUTO) 0.1 (0.0-0.4); EOSINOPHILS % 1.7 % (0.0-6.0); LYMPHOCYTES # (AUTO) 0.5 (1.0-3.2); LYMPHOCYTES % 8.5 % (18.0-39.1); MEAN CORPUSCULAR HEMOGLOBIN 31.3 pg (28-32); MEAN CORPUSCULAR HGB CONC 31.8 g/dL (31-35); MEAN CORPUSCULAR VOLUME 98.5 fL (81-99); MONOCYTES # (AUTO) 0.6 (0.2-0.8); MONOCYTES % 9.3 % (4.4-11.3); NEUTROPHILS % 79.3 % (38.7-80.0); PLATELET COUNT 229 x10e3/uL (140-360); RED BLOOD COUNT 1.95 x10e6/uL (4.3-5.7); RED CELL DISTRIBUTION WIDTH 14.2 % (11.7-14.4)
[2020-01-03 15:52] LABS: HEMOGLOBIN 6.1 g/dL (14.0-18.0)
[2020-01-03 15:53] LABS: HEMATOCRIT 19.2 % (38.2-49.6)
[2020-01-03 16:05] LABS: ALBUMIN 2.7 g/dL (3.5-5.0); ALBUMIN/GLOBULIN RATIO 0.6 (0.8-2.0); ANION GAP 13.4 mmol/L (8-16); CALCIUM 8.3 mg/dL (8.4-10.2); CREATININE, SERUM 2.26 mg/dL (0.72-1.25); POTASSIUM 3.4 mmol/L (3.5-5.1)
--- NOTE | 2020-01-03 16:38 | Emergency Department Note ---
History of Present Illnes History of Present Illness Chief Complaint: General Medicine Complaints History of Present Illness This is a 54 year old male arrives to the ED at the request of his PCP for a low hemoglobin requiring transfusion. Patient claims generalized malaise and weakness but denies any chest pain or shortness of breath.. Historian: Patient, Family Member Arrival Mode: Car Onset (how long ago): unknown Severity: mild Onset quality: gradual Timing of current episode: constant Progression: waxing and waning Relieving factors: rest Exacerbating factors: movement Past Medical/Family History Physician Review I have reviewed the patient's past medical and family history. Any updates have been documented here. Past Medical History Recent Fever: No Clinical Suspicion of Infectio: No New/Unexplained Change in Ment: No Past Medical History: Hypertension, Diabetes, ESRD, Chronic Kidney Disease Other Medical History: ESRD, dialysis, legally blind Other Surgery: Heart Surgery Social History Smoking Cessation: Never Smoker Counseling Performed: No Alcohol Use: None Any Illegal Drug Use: No TB Exposure/Symptoms: No Physically hurt or threatened: No Family History Family history of heart diseas: No Other Last Tetanus: UTD Any Pre-Existing Lines (PICC,: No Is patient up to date on immun: Yes Last Flu: UTD Last Pneumovax: UTD Review of Systems Review of Systems Constitutional: as per HPI, malaise, weakness EENTM: no symptoms Cardiovascular: no symptoms Respiratory: no symptoms Gastrointestinal: no symptoms Genitourinary: no symptoms Musculoskeletal: no symptoms Neurological: no symptoms Psychological: no symptoms Endocrine: no symptoms Hematological/Lymphatic: no symptoms Review of other systems All other systems reviewed and negative. Physical Exam Related Data Allergies: Coded Allergies: No Known Allergies (Unverified , 06/17/19) Triage Vital Signs Vital Signs Date Time Temp Pulse Resp B/P (MAP) Pulse Ox O2 Delivery O2 Flow Rate FiO2 01/03/20 15:28 95.9 70 18 139/73 99 Vital signs reviewed: Yes Physical Exam CONSTITUTIONAL Constitutional: well-developed, well-nourished HENT HENT: normocephalic, atraumatic, oropharynx clear/moist, nose normal HENT L/R: left ext ear normal, right ext ear normal EYES Legally blind Eyes: conjunctivae normal NECK Neck: ROM normal PULMONARY Pulmonary: effort normal, breath sounds normal CARDIOVASCULAR Cardiovascular: regular rhythm, heart sounds normal, capillary refill normal, normal rate GASTROINTESTINAL Abdominal: soft, nontender, bowel sounds normal GENITOURINARY Genitourinary: exam deferred SKIN Skin: warm, dry MUSCULOSKELETAL Musculoskeletal: ROM normal NEUROLOGICAL Neurological: alert, oriented x 3, no gross motor or sensory deficits PSYCHOLOGICAL Psychological: mood/affect normal, judgement normal Results Laboratory Result Diagram: 01/03/20 1530 01/03/20 1530 Laboratory Laboratory Tests Test 01/03/20 15:30 White Blood Count 6.35 x10e3/uL (4.8-10.8) Red Blood Count 1.95 x10e6/uL (4.3-5.7) Hemoglobin 6.1 g/dL (14.0-18.0) Hematocrit 19.2 % (38.2-49.6) Mean Corpuscular Volume 98.5 fL (81-99) Mean Corpuscular Hemoglobin 31.3 pg (28-32) Mean Corpuscular Hemoglobin Concent 31.8 g/dL (31-35) Red Cell Distribution Width 14.2 % (11.7-14.4) Platelet Count 229 x10e3/uL (140-360) Neutrophils (%) (Auto) 79.3 % (38.7-80.0) Lymphocytes (%) (Auto) 8.5 % (18.0-39.1) Monocytes (%) (Auto) 9.3 % (4.4-11.3) Eosinophils (%) (Auto) 1.7 % (0.0-6.0) Basophils (%) (Auto) 0.6 % (0.0-1.0) Neutrophils # (Auto) 5.0 (2.1-6.9) Lymphocytes # (Auto) 0.5 (1.0-3.2) Monocytes # (Auto) 0.6 (0.2-0.8) Eosinophils # (Auto) 0.1 (0.0-0.4) Basophils # (Auto) 0.0 (0.0-0.1) Absolute Immature Granulocyte (auto 0.04 x10e3/uL (0-0.1) Sodium Level 139 mmol/L (136-145) Potassium Level 3.4 mmol/L (3.5-5.1) Chloride Level 101 mmol/L (98-107) Carbon Dioxide Level 28 mmol/L (22-29) Anion Gap 13.4 mmol/L (8-16) Blood Urea Nitrogen 17 mg/dL (7-26) Creatinine 2.26 mg/dL (0.72-1.25) Estimat Glomerular Filtration Rate 30 ML/MIN (60-) BUN/Creatinine Ratio 8 (6-25) Glucose Level 116 mg/dL (74-118) Calcium Level 8.3 mg/dL (8.4-10.2) Total Bilirubin 1.0 mg/dL (0.2-1.2) Aspartate Amino Transf (AST/SGOT) 15 IU/L (5-34) Alanine Aminotransferase (ALT/SGPT) 17 IU/L (0-55) Alkaline Phosphatase 617 IU/L (40-150) Total Protein 7.1 g/dL (6.5-8.1) Albumin 2.7 g/dL (3.5-5.0) Globulin 4.4 g/dL (2.3-3.5) Albumin/Globulin Ratio 0.6 (0.8-2.0) Lab results reviewed: Yes Procedures 12 Lead ECG Interpretation [employer]: Interpreted by ED physician Rhythm: sinus rhythm QRS axis: normal Clinical Impression: normal ECG Critical Care Time Subsequent provider I assumed direction of critical care for this patient from another provider of my specialty. Assessment & Plan Reassessment Reassessment 54-year-old male arrived to the ED with hemoglobin shouldn't ESRD on hemodialysis. 2 units PRBCs ordered and patient admitted for monitoring. Assessment & Plan Final Impression: (1) ANEMIA, UNSPECIFIED Assessment & Plan cbc, cmp transfuse 2 units Last Vital Signs Date Time Temp Pulse Resp B/P (MAP) Pulse Ox O2 Delivery O2 Flow Rate FiO2 01/03/20 15:28 95.9 70 18 139/73 99 Home Meds Reported Medications Lisinopril (LISINOPRIL) 10 Mg Tablet, 20 MG PO DAILY, #30 TAB 07/11/19 Tamsulosin Hcl* (FLOMAX*) 0.4 Mg Cap, 0.4 MG PO DAILY, #30 CAP 07/11/19 Carvedilol (CARVEDILOL) 12.5 Mg Tablet, 25 MG PO BID, #60 TAB 07/11/19 Metformin Hcl (METFORMIN HCL) 500 Mg Tablet, 500 MG PO DAILY, #60 TAB 07/11/19 BONNIE GOVEA DO Jan 03, 2020 16:22
--- OUTSIDE RECORDS SUMMARY | 2020-01-03 16:43 | XMS REPORT | Continuity of Care Document ---
Author Author [facility] t Organization [facility] Address [address] [place] [address] Phone Unavailable Care Team Providers Care Engine Assembly Supervisor Name Role Phone ADIN FAUSTIN PCP Prieto FAUSTIN MD Attphys Unavailable Alissa SALVADOR Attphys Unavailable CINDY ALVAREZ Attphys Unavailable Alissa SALVADOR Admphys Unavailable CINDY ALVAREZphys Unavailable Payers Payer Name Policy Type Policy Number Effective Date Expiration Date Sarita banks [employer] Medicare Complete NA 2019 00:00:00 [facility] [id number] 2018 00:00:00 [facility] Problems Condition Name Condition Details Condition Category Status Onset Date Resolution Date Last Treatment Date Treating Clinician Comments Source Epistaxis Problem Active [facility] Allergies, Adverse Reactions, Alerts Allergy Name Allergy Type Status Severity Reaction(s) Onset Date Inacti ve Date Treating Clinician Comments Source No Known Allergies DA Active U 2019-10-07 00:00:00 [facility] No Known Allergies DA Active U 2019-09-09 00:00:00 [facility] Social History Social Habit Start Date Stop Date Quantity Comments Source Sex Assigned At 1965 00:[birth year]00 1965 00:00:[address] [facility] Medications Ordered Medication Name Filled Medication Name Start Date Stop Da te Current Medication? Ordering Clinician Indication Dosage Frequency Signature (SIG) Comments Components Source Carvedilol Carvedilol Yes [address] [facility] Lisinopril Lisinopril Yes 20 Daily [facility] Metformin Hcl Metformin Hcl Yes [address] [facility] Tamsulosin Hcl (Flomax*) 0.4 Mg CAP Tamsulosin Hcl (Flomax*) 0.4 Mg C AP Yes .4 Daily [facility] Vital Signs Vital Name Observation Time Observation Value Comments Source Weight 2019-12-29 11:33:00 193 [lb_av] [facility] BMI (Body Mass Index) 2019-12-29 11:33:00 27.7 kg/m2 [facility] Weight 2019-12-26 08:25:00 193 [lb_av] [facility] BMI (Body Mass Index) 2019-12-26 08:25:00 27.7 kg/m2 [facility] Weight 2019-12-25 09:38:00 193 [lb_av] [facility] BMI (Body Mass Index) 2019-12-25 09:38:00 27.7 kg/m2 [facility] Weight 2019-12-23 10:48:00 193 [lb_av] [facility] BMI (Body Mass Index) 2019-12-23 10:48:00 27.7 kg/m2 [facility] Body Temperature 2019-10-23 12:00:00 97.6 [degF] [facility] Procedures Procedure Date / Time Performed Performing Clinician Vivien deleon US abdomen complete 2019-12-26 00:00:00 [facility] US Abdomen limited 2019-10-22 00:00:00 YAJAIRA GRAMAJO [facility] TRANSFUSE NONAUT RED BLOOD CELLS IN PERIPH VEIN, PERC 2019-10-18 00:00:00 [facility] PERFORMANCE OF URINARY FILTRATION, <6 HRS/DAY 2019-10-18 00:00:[address] [facility] CONTROL BLEEDING IN NASAL MUCOSA AND SOFT TISSUE, ENDO 2019-09-30 0 00:00:00 [facility] Computed tomography of chest without contrast 2019-07-12 00:00:0 0 ALVAREZ, CINDY [facility] PERFORMANCE OF URINARY FILTRATION, <6 HRS/DAY 2019-07-12 00:00:[address] [facility] CT of abdomen and pelvis without contrast 2019-07-12 00:00:00 [facility] Plan of Care Planned Activity Planned Date Details Comments Source Instructions Bronchitis (Acute) - [facility] Instructions Epistaxis - Adult [facility] Encounters Start Date/Time End Date/Time Encounter Type Admission Type Attendi [facility] Facility Care Department Encounter ID Source 2019-12-29 10:51:00 2019-12-29 12:17:00 Departed Emergency [facility] [id number] [facility] 2019-12-26 08:15:00 2019-12-26 10:08:00 Departed Emergency [facility] [id number] [facility] 2019-12-26 07:33:00 2019-12-26 07:33:00 Registered Clinic 3 ADIN FAUSTIN MD [facility] [id number] [facility] Denise kes [facility] 2019-12-25 09:16:00 2019-12-25 09:50:00 Departed Emergency [facility] [id number] [facility] 2019-12-23 10:09:00 2019-12-23 11:07:00 Departed Emergency [facility] [id number] [facility] 22:29:00 2019-10-23 15:50:00 Discharged Inpatient 1 PAWEL SALVADOR [facility] [id number] [facility] 2019-09-24 15:47:00 2019-09-24 15:47:00 Outpatient MHSE PHAN [address] [facility] 2019-08-07 07:54:00 2019-08-07 07:54:00 Registered Clinic [facility] [id number] [facility] 2019-07-12 08:43:00 2019-07-17 17:30:00 Discharged Inpatient 1 CINDY ALVAREZ [facility] [id number] [facility] 2019-06-17 13:10:00 2019-06-17 16:32:00 [id number] [facility] Results Test Description Test Time Test Comments Results Result Comments Source US ABDOMEN COMPLETE 2019-12-26 09:40:00 [facility] [address] [address] Patient Name: VIOLETTE LAMB MR #: [id number] : 1965 Age/Sex: 54/M Req #: [id number] Adm Physician: Ordered by: OMKAR WILSON, ADIN Moreau MD Report #: [id number] Location: Room/Bed: Procedure: [id number] US/US ABDOMEN COMPLETE Exam Date: 12/26/19 Exam [...] Count (test code = 6690-2) 6.56 4.8-10.8 [facility] erythrocytes automated count (number/volume)2019-12-26 08:45:00* Test Item Value Reference Range Interpretation Comments Red Blood Count (test code = 789-8) 2.51 4.3-5.7 [facility] hemoglobin measurement (moles/volume)2019-12-26 08:45:00* Test Item Value Reference Range Interpretation Comments Hemoglobin (test code = 31670-9) 8.2 14.0-18.0 [facility]kinAutomated blood hematocrit (volume fraction)2019-12-26 08:45:00* Test Item Value Reference Range Interpretation Comments Hematocrit (test code = 4544-3) 24.8 38.2-49.6 [facility]kinAutomated erythrocyte mean corpuscular euhyds9305-85-38 08:45:00* Test Item Value Reference Range Interpretation Comments Mean Corpuscular Volume (test code = 787-2) 98.8 81-99 [facility]kinAutomated erythrocyte mean corpuscular hemoglobin (mass per erythrocyte)2019-12-26 08:45:00* Test Item Value Reference Range Interpretation Comments Mean Corpuscular Hemoglobin (test code = 785-6) 32.7 28-32 [facility]kinAutomated erythrocyte mean corpuscular hemoglobin concentration measurement (mass/volume)2019-12-26 08:45:00* Test Item Value Reference Range Interpretation Comments Mean Corpuscular Hemoglobin Concent (test code = 786-4) 33.1 31-35 [facility] LufkinRDW RlpGz-Frh3976-77-28 08:45:00* Test Item Value Reference Range Interpretation Comments Red Cell Distribution Width (test code = 74168-0) 13.9 11.7 -14.4 [facility]kinAutomated blood platelet count (count/volume)2019-12-26 08:45:00* Test Item Value Reference Range Interpretation Comments Platelet Count (test code = 777-3) 136 140-360 [facility]kinAutomated blood segmented neutrophil count as percentage of total rtaaotkqma2333-67-95 08:45:00* Test Item Value Reference Range Interpretation Comments Neutrophils (%) (Auto) (test code = 15793-9) 78.9 38.7-80.0 [facility]kinAutomated blood lymphocyte count as percentage ot total okkziyuobx5979-18-15 08:45:00* Test Item Value Reference Range Interpretation Comments Lymphocytes (%) (Auto) (test code = 736-9) 8.2 18.0-39.1 [facility]kinAutomated blood monocyte count as percentage of total pqvyhjqewj1942-44-08 08:45:00* Test Item Value Reference Range Interpretation Comments Monocytes (%) (Auto) (test code = 5905-5) 9.8 4.4-11.3 [facility]kinAutomated blood eosinophil count as percentage of total xnrgolcwkj6947-33-17 08:45:00* Test Item Value Reference Range Interpretation Comments Eosinophils (%) (Auto) (test code = 713-8) 2.3 0.0-6.0 [facility]kinAutomated blood basophil count as percentage of total pwlyifwrmg3684-42-96 08:45:00* Test Item Value Reference Range Interpretation Comments Basophils (%) (Auto) (test code = 706-2) 0.5 0.0-1.0 [facility] LufkinFluoroscopic procedure less than one hour jhxrpsps5071-92-57 08:45:00* Test Item Value Reference Range Interpretation Comments IM GRANULOCYTES % (test code = IM GRANULOCYTES %) 0.3 0.0- 1.0 [facility]kinAutomated blood neutrophil count 2019-12-26 08:45:00* Test Item Value Reference Range Interpretation Comments Neutrophils # (Auto) (test code = 751-8) 5.2 2.1-6.9 [facility]kinBlood lymphocytes count (number/volume) 2019-12-26 08:45:00* Test Item Value Reference Range Interpretation Comments Lymphocytes # (Auto) (test code = 73250-7) 0.5 1.0-3.2 [facility]kinBlood monocytes automated count (number/volume)2019-12-26 08:45:00* Test Item Value Reference Range Interpretation Comments Monocytes # (Auto) (test code = 742-7) 0.6 0.2-0.8 [facility]kinAutomated blood eosinophil count 2019-12-26 08:45:00* Test Item Value Reference Range Interpretation Comments Eosinophils # (Auto) (test code = 711-2) 0.2 0.0-0.4 [facility]kinAutomated blood basophil count (count/volume)2019-12-26 08:45:00* Test Item Value Reference Range Interpretation Comments Basophils # (Auto) (test code = 704-7) 0.0 0.0-0.1 [facility] LufkinFluoroscopic procedure less than one hour eorzhorg4413-61-41 08:45:00* Test Item Value Reference Range Interpretation Comments Absolute Immature Granulocyte (auto (rupinder t code = Absolute Immature Granulocyte (auto) 0.02 0-0.1 [facility] L[facility]kinProthrombin time (PT) in platelet poor plasma by coagulation lijey6134-98-50 08:45:00* Test Item Value Reference Range Interpretation Comments Prothrombin Time (test code = 5902-2) 14.1 11.9-14.5 [facility] L[facility]kinINR in Platelet poor plasma by Coagulation elufq2023-07-26 08:45:00* Test Item Value Reference Range Interpretation Comments Prothromb Time International Ratio (test code = 6301-6) 1.03 Oral Anticoagulant Therapy INR Values:1. Low Intensity Therapy 1.5 - 2.02 . Moderate Intensity Therapy 2.0 - 3.03. High Intensity Therapy(1) 2.5 - 3. 54. High Intensity Therapy(2) 3.0 - 4.05. Panic Value INR > 5.0 [facility] LufkinActivated partial thromboplastin time (aPTT) in platelet poor plasma by coagulation yzwjm1246-56-91 08:45:00* Test Item Value Reference Range Interpretation Comments Activated Partial Thromboplast Time (test code = 56492-2) 31.2 23.8-35.5 [facility]kinBlood leukocytes automated count (number/volume)2019-12-26 08:45:00* Test Item Value Reference Range Interpretation Comments White Blood Count (test code = 6690-2) 6.56 4.8-10.8 [facility]kinBlood erythrocytes automated count (number/volume)2019-12-26 08:45:00* Test Item Value Reference Range Interpretation Comments Red Blood Count (test code = 789-8) 2.51 4.3-5.7 [facility]kinBlood hemoglobin measurement (moles/volume)2019-12-26 08:45:00* Test Item Value Reference Range Interpretation Comments Hemoglobin (test code = 18006-9) 8.2 14.0-18.0 [facility]kinAutomated blood hematocrit (volume fraction)2019-12-26 08:45:00* Test Item Value Reference Range Interpretation Comments Hematocrit (test code = 4544-3) 24.8 38.2-49.6 [facility]kinAutomated erythrocyte mean corpuscular xpejtg6223-27-03 08:45:00* Test Item Value Reference Range Interpretation Comments Mean Corpuscular Volume (test code = 787-2) 98.8 81-99 [facility]kinAutomated erythrocyte mean corpuscular hemoglobin (mass per erythrocyte)2019-12-26 08:45:00* Test Item Value Reference Range Interpretation Comments Mean Corpuscular Hemoglobin (test code = 785-6) 32.7 28-32 [facility]kinAuthighsmith-rainey specialty hospitaled erythrocyte mean corpuscular hemoglobin concentration measurement (mass/volume)2019-12-26 08:45:00* Test Item Value Reference Range Interpretation Comments Mean Corpuscular Hemoglobin Concent (test code = 786-4) 33.1 31-35 [facility] LufkinRDW XocGt-Rmn2681-55-28 08:45:00* Test Item Value Reference Range Interpretation Comments Red Cell Distribution Width (test code = 14413-2) 13.9 11.7 -14.4 [facility]kinAuthighsmith-rainey specialty hospitaled blood platelet count (count/volume)2019-12-26 08:45:00* Test Item Value Reference Range Interpretation Comments Platelet Count (test code = 777-3) 136 140-360 [facility]ufkinAutomated blood segmented neutrophil count as percentage of total prsuqizexg4054-46-51 08:45:00* Test Item Value Reference Range Interpretation Comments Neutrophils (%) (Auto) (test code = 15181-4) 78.9 38.7-80.0 [facility]kinAutomated blood lymphocyte count as percentage ot total wnjgjhzpbl1553-24-98 08:45:00* Test Item Value Reference Range Interpretation Comments Lymphocytes (%) (Auto) (test code = 736-9) 8.2 18.0-39.1 [facility]kinAutomated blood monocyte count as percentage of total gslkolklrl8021-31-12 08:45:00* Test Item Value Reference Range Interpretation Comments Monocytes (%) (Auto) (test code = 5905-5) 9.8 4.4-11.3 [facility]kinAutomated blood eosinophil count as percentage of total uxkfrnslbb9416-24-08 08:45:00* Test Item Value Reference Range Interpretation Comments Eosinophils (%) (Auto) (test code = 713-8) 2.3 0.0-6.0 [facility]kinAutomated blood basophil count as percentage of total pgmnnvdlwh2957-41-80 08:45:00* Test Item Value Reference Range Interpretation Comments Basophils (%) (Auto) (test code = 706-2) 0.5 0.0-1.0 [facility] LufkinFluoroscopic procedure less than one hour cfziwuqn4962-37-46 08:45:00* Test Item Value Reference Range Interpretation Comments IM GRANULOCYTES % (test code = IM GRANULOCYTES %) 0.3 0.0- 1.0 [facility]ufkinAutomated blood neutrophil count 2019-12-26 08:45:00* Test Item Value Reference Range Interpretation Comments Neutrophils # (Auto) (test code = 751-8) 5.2 2.1-6.9 [facility]kinBlood lymphocytes count (number/volume) 2019-12-26 08:45:00* Test Item Value Reference Range Interpretation Comments Lymphocytes # (Auto) (test code = 25916-4) 0.5 1.0-3.2 [facility]kinBlood monocytes automated count (number/volume)2019-12-26 08:45:00* Test Item Value Reference Range Interpretation Comments Monocytes # (Auto) (test code = 742-7) 0.6 0.2-0.8 [facility]ufkinAutomated blood eosinophil count 2019-12-26 08:45:00* Test Item Value Reference Range Interpretation Comments Eosinophils # (Auto) (test code = 711-2) 0.2 0.0-0.4 [facility]ufkinAutomated blood basophil count (count/volume)2019-12-26 08:45:00* Test Item Value Reference Range Interpretation Comments Basophils # (Auto) (test code = 704-7) 0.0 0.0-0.1 [facility] LufkinFluoroscopic procedure less than one hour qmbmroxz6171-59-94 08:45:00* Test Item Value Reference Range Interpretation Comments Absolute Immature Granulocyte (auto (rupinder t code = Absolute Immature Granulocyte (auto) 0.02 0-0.1 [facility] LufkinProthrombin time (PT) in platelet poor plasma by coagulation filgg9215-37-96 08:45:00* Test Item Value Reference Range Interpretation Comments Prothrombin Time (test code = 5902-2) 14.1 11.9-14.5 [facility] LufkinINR in Platelet poor plasma by Coagulation cfzcv5933-82-11 08:45:00* Test Item Value Reference Range Interpretation Comments Prothromb Time International Ratio (test code = 6301-6) 1.03 Oral Anticoagulant Therapy INR Values:1. Low Intensity Therapy 1.5 - 2.02 . Moderate Intensity Therapy 2.0 - 3.03. High Intensity Therapy(1) 2.5 - 3. 54. High Intensity Therapy(2) 3.0 - 4.05. Panic Value INR > 5.0 [facility] LufkinActivated partial thromboplastin time (aPTT) in platelet poor plasma by coagulation gztji7202-47-66 08:45:00* Test Item Value Reference Range Interpretation Comments Activated Partial Thromboplast Time (test code = 03213-1) 31.2 23.8-35.5 [facility] LufkinBlood Amopdwy5573-28-51 11:35:00* Test Item Value Reference Range Interpretation Comments Blood Culture (test code = 26916360) NO GROWTH AFTER 5 DAYS, FINAL REPORT [facility] LufkinBedside Walbygk3038-26-63 11:41:00* Test Item Value Reference Range Interpretation Comments Bedside Glucose (test code = 50155-6) 131 70-120 H Meter ID: [id number] [facility] CenterPlatelet Morphology Xjodoaj2318-96-57 11:02:00* Test Item Value Reference Range Interpretation Comments Platelet Morphology Comment (test code = 89263-8) NO EDTA PLT CLUMP S SEEN [facility] LufkinCapillary blood glucose measurement by glucometer (mass/volume)2019-10-23 10:59:00* Test Item Value Reference Range Interpretation Comments Bedside Glucose (test code = 75033-0) 131 70-120 Meter ID: [id number] [facility] CenterCapillary blood glucose measurement by glucometer (mass/volume)2019-10-23 10:59:00* Test Item Value Reference Range Interpretation Comments Bedside Glucose (test code = 68108-5) 131 70-120 Meter ID: [id number] [facility] CenterCapillary blood glucose measurement by glucometer (mass/volume)2019-10-23 10:59:00* Test Item Value Reference Range Interpretation Comments Bedside Glucose (test code = 92032-2) 131 70-120 Meter ID: [id number] [facility] ArlingtonCapillary blood glucose measurement by glucometer (mass/volume)2019-10-23 10:59:00* Test Item Value Reference Range Interpretation Comments Bedside Glucose (test code = 48460-6) 131 70-120 Meter ID: [id number] [facility] Hospitalodium Level 2019-10-23 06:43:00* Test Item Value Reference Range Interpretation Comments Sodium Level (test code = 2951-2) 133 136-[address] [facility]ufkinPotassium Ongtn1920-25-31 06:43:00* Test Item Value Reference Range Interpretation Comments Potassium Level (test code = 2823-3) 3.9 3.5-5.1 [facility]kinChloride Fjjfy2238-49-23 06:43:00* Test Item Value Reference Range Interpretation Comments Chloride Level (test code = 2075-0) 100 98-107 [facility] LufkinCarbon Dioxide Gtwax1430-04-82 06:43:00* Test Item Value Reference Range Interpretation Comments Carbon Dioxide Level (test code = 2028-9) 24 22-29 [facility] LufkinAnion Vzx4964-54-42 06:43:00* Test Item Value Reference Range Interpretation Comments Anion Gap (test code = 55953-2) 12.9 8-16 [facility] LufkinBlood Urea Bzzvfmki3075-26-60 06:43:00* Test Item Value Reference Range Interpretation Comments Blood Urea Nitrogen (test code = 3094-0) 54 7-[address] [facility]ufkinCreatinine2020-03-25 06:43:00* Test Item Value Reference Range Interpretation Comments Creatinine (test code = 2160-0) 4.25 0.72-1.[address] [facility] LufkinBUN/Creatinine Dxmny7571-02-54 06:43:00* Test Item Value Reference Range Interpretation Comments BUN/Creatinine Ratio (test code = 3097-3) 13 6-25 [facility] LufkinEstimat Glomerular Filtration Rate 2019-10-23 06:43:00* Test Item Value Reference Range Interpretation Comments Estimat Glomerular Filtration Rate (test code = 315187355) 15 >60 L Ranges were taken from the National Kidney Disease Education Program and the [facility] Kid[facility] Foundation literature.Reference ranges:60 or greater: Lxvcko70-62 ( for 3 consecutive months): Chronic kidney disease 15 or less: Kidney failureSt. Luke's Health – Memorial LufkinGlucose Dslbn7576-53-53 06:43:00* Test Item Value Reference Range Interpretation Comments Glucose Level (test code = YMJ0696) 158 74-[address] [facility] LufkinCalcium Qhhaa4933-78-82 06:43:00* Test Item Value Reference Range Interpretation Comments Calcium Level (test code = 00424-9) 7.8 8.4-10.[address] [facility] LufkinTotal Ntpiicxpl7302-99-02 06:43:00* Test Item Value Reference Range Interpretation Comments Total Bilirubin (test code = 1975-2) 5.3 0.2-1.[address] [facility] LufkinAspartate Amino Transf (AST/SGOT) 2019-10-23 06:43:00* Test Item Value Reference Range Interpretation Comments Aspartate Amino Transf (AST/SGOT) (test code = Aspartate Amino Transf (AST/SGOT)) 31 5-34 [facility] LufkinAlanine Aminotransferase (ALT/SGPT) 2019-10-23 06:43:00* Test Item Value Reference Range Interpretation Comments Alanine Aminotransferase (ALT/SGPT) (test code = 1742-6) 36 0-55 [facility] LufkinTotal Wijjlqj9322-14-74 06:43:00* Test Item Value Reference Range Interpretation Comments Total Protein (test code = 2885-2) 5.8 6.5-8.[address] [facility] LufkinAlbumin2020-03-25 06:43:00* Test Item Value Reference Range Interpretation Comments Albumin (test code = 1751-7) 2.2 3.5-5.[address] [facility] LufkinGlobulin2020-03-25 06:43:00* Test Item Value Reference Range Interpretation Comments Globulin (test code = 35423-4) 3.6 2.3-3.[address] [facility] LufkinAlbumin/Globulin Wgaaj8316-76-18 06:43:00 * Test Item Value Reference Range Interpretation Comments Albumin/Globulin Ratio (test code = 1759-0) 0.6 0.8-2.[address] [facility] LufkinAlkaline Gfkoztvwqry2545-29-75 06:43:00* Test Item Value Reference Range Interpretation Comments Alkaline Phosphatase (test code = 6768-6) 630 40-[address] [facility] LufkinWhite Blood Lkcqq8397-87-63 06:07:00* Test Item Value Reference Range Interpretation Comments White Blood Count (test code = 6690-2) 4.19 4.8-10.[address] [facility] LufkinRed Blood Fkcpf6924-72-84 06:07:00* Test Item Value Reference Range Interpretation Comments Red Blood Count (test code = 789-8) 2.55 4.3-5.[address] [facility] LufkinHemoglobin2020-03-25 06:07:00* Test Item Value Reference Range Interpretation Comments Hemoglobin (test code = 11614-2) 8.3 14.0-18.[address] [facility] LufkinHematocrit2020-03-25 06:07:00* Test Item Value Reference Range Interpretation Comments Hematocrit (test code = 4544-3) 25.0 38.2-49.[address] [facility] LufkinMean Corpuscular Uhuwxv7247-36-69 06:07:00* Test Item Value Reference Range Interpretation Comments Mean Corpuscular Volume (test code = 787-2) 98.0 81-99 [facility] LufkinMean Corpuscular Epspjhzocb1296-18-72 06:07:00* Test Item Value Reference Range Interpretation Comments Mean Corpuscular Hemoglobin (test code = 785-6) 32.5 28-[address] [facility]kinMean Corpuscular Hemoglobin Concent 2019-10-23 06:07:00* Test Item Value Reference Range Interpretation Comments Mean Corpuscular Hemoglobin Concent (test code = 786-4) 33.2 31-35 [facility]kinRed Cell Distribution [id number] 06:07:00* Test Item Value Reference Range Interpretation Comments Red Cell Distribution Width (test code = 91661-0) 17.8 11.7 -14.[address] [facility] LufkinPlatelet Mjukk8398-69-90 06:07:00* Test Item Value Reference Range Interpretation Comments Platelet Count (test code = 777-3) 86 140-[address] [facility]kinNeutrophils (%) (Auto)2019-10-23 06:07:00 * Test Item Value Reference Range Interpretation Comments Neutrophils (%) (Auto) (test code = 55257-6) 76.2 38.7-80.0 [facility]kinLymphocytes (%) (Auto)2019-10-23 06:07:00 * Test Item Value Reference Range Interpretation Comments Lymphocytes (%) (Auto) (test code = 736-9) 12.6 18.0-39.[address] [facility]kinMonocytes (%) (Auto)2019-10-23 06:07:00* Test Item Value Reference Range Interpretation Comments Monocytes (%) (Auto) (test code = 5905-5) 8.6 4.4-11.3 [facility]kinEosinophils (%) (Auto)2019-10-23 06:07:00 * Test Item Value Reference Range Interpretation Comments Eosinophils (%) (Auto) (test code = 713-8) 2.1 0.0-6.0 [facility]kinBasophils (%) (Auto)2019-10-23 06:07:00* Test Item Value Reference Range Interpretation Comments Basophils (%) (Auto) (test code = 706-2) 0.0 0.0-1.0 [facility]kinIM GRANULOCYTES %2019-10-23 06:07:00* Test Item Value Reference Range Interpretation Comments IM GRANULOCYTES % (test code = IM GRANULOCYTES %) 0.5 0.0- 1.0 [facility]kinNeutrophils # (Auto)2019-10-23 06:07:00* Test Item Value Reference Range Interpretation Comments Neutrophils # (Auto) (test code = 751-8) 3.2 2.1-6.9 [facility]kinLymphocytes # (Auto)2019-10-23 06:07:00* Test Item Value Reference Range Interpretation Comments Lymphocytes # (Auto) (test code = 61502-9) 0.5 1.0-3.[address] [facility]kinMonocytes # (Auto)2019-10-23 06:07:00* Test Item Value Reference Range Interpretation Comments Monocytes # (Auto) (test code = 742-7) 0.4 0.2-0.8 [facility]kinEosinophils # (Auto)2019-10-23 06:07:00* Test Item Value Reference Range Interpretation Comments Eosinophils # (Auto) (test code = 711-2) 0.1 0.0-0.4 [facility]kinBasophils # (Auto)2019-10-23 06:07:00* Test Item Value Reference Range Interpretation Comments Basophils # (Auto) (test code = 704-7) 0.0 0.0-0.1 [facility] LufkinAbsolute Immature Granulocyte (auto 2019-10-23 06:07:00* Test Item Value Reference Range Interpretation Comments Absolute Immature Granulocyte (auto (rupinder t code = Absolute Immature Granulocyte (auto) 0.02 0-0.1 [facility] LufkinBlood leukocytes automated count (number/volume)2019-10-23 05:20:00* Test Item Value Reference Range Interpretation Comments White Blood Count (test code = 6690-2) 4.19 4.8-10.8 [facility]kinBlm[facility] erythrocytes automated count (number/volume)2019-10-23 05:20:00* Test Item Value Reference Range Interpretation Comments Red Blood Count (test code = 789-8) 2.55 4.3-5.7 [facility]kinBlood hemoglobin measurement (moles/volume)2019-10-23 05:20:00* Test Item Value Reference Range Interpretation Comments Hemoglobin (test code = 42205-7) 8.3 14.0-18.0 [facility]ufkinAutomated blood hematocrit (volume fraction)2019-10-23 05:20:00* Test Item Value Reference Range Interpretation Comments Hematocrit (test code = 4544-3) 25.0 38.2-49.6 [facility] LufkinAutomated erythrocyte mean corpuscular yxxnmf3840-12-02 05:20:00* Test Item Value Reference Range Interpretation Comments Mean Corpuscular Volume (test code = 787-2) 98.0 81-99 [facility]ufkinAutomated erythrocyte mean corpuscular hemoglobin (mass per erythrocyte)2019-10-23 05:20:00* Test Item Value Reference Range Interpretation Comments Mean Corpuscular Hemoglobin (test code = 785-6) 32.5 28-32 [facility]ufkinAutomated erythrocyte mean corpuscular hemoglobin concentration measurement (mass/volume)2019-10-23 05:20:00* Test Item Value Reference Range Interpretation Comments Mean Corpuscular Hemoglobin Concent (test code = 786-4) 33.2 31-35 [facility] LufkinRDW GcyHg-[id number] 05:20:00* Test Item Value Reference Range Interpretation Comments Red Cell Distribution Width (test code = 34382-8) 17.8 11.7 -14.4 [facility]ufkinAutomated blood platelet count (count/volume)2019-10-23 05:20:00* Test Item Value Reference Range Interpretation Comments Platelet Count (test code = 777-3) 86 140-360 [facility]ufkinAutomated blood segmented neutrophil count as percentage of total mppfpcacvk4407-18-33 05:20:00* Test Item Value Reference Range Interpretation Comments Neutrophils (%) (Auto) (test code = 55967-7) 76.2 38.7-80.0 [facility]ufkinAutomated blood lymphocyte count as percentage ot total gftqswmmwk6590-56-01 05:20:00* Test Item Value Reference Range Interpretation Comments Lymphocytes (%) (Auto) (test code = 736-9) 12.6 18.0-39.1 [facility]ufkinAutomated blood monocyte count as percentage of total fhmfpvxpgf2785-32-20 05:20:00* Test Item Value Reference Range Interpretation Comments Monocytes (%) (Auto) (test code = 5905-5) 8.6 4.4-11.3 [facility]kinAutomated blood eosinophil count as percentage of total kfzamcuywn4805-16-81 05:20:00* Test Item Value Reference Range Interpretation Comments Eosinophils (%) (Auto) (test code = 713-8) 2.1 0.0-6.0 [facility]kinAutomated blood basophil count as percentage of total aupdqlvczn7263-58-56 05:20:00* Test Item Value Reference Range Interpretation Comments Basophils (%) (Auto) (test code = 706-2) 0.0 0.0-1.0 [facility]kinFluoroscopic procedure less than one hour tkzrgvjg1863-44-26 05:20:00* Test Item Value Reference Range Interpretation Comments IM GRANULOCYTES % (test code = IM GRANULOCYTES %) 0.5 0.0- 1.0 [facility]kinAutomated blood neutrophil count 2019-10-23 05:20:00* Test Item Value Reference Range Interpretation Comments Neutrophils # (Auto) (test code = 751-8) 3.2 2.1-6.9 [facility]kinBlood lymphocytes count (number/volume) 2019-10-23 05:20:00* Test Item Value Reference Range Interpretation Comments Lymphocytes # (Auto) (test code = 09350-7) 0.5 1.0-3.2 [facility]kinBlood monocytes automated count (number/volume)2019-10-23 05:20:00* Test Item Value Reference Range Interpretation Comments Monocytes # (Auto) (test code = 742-7) 0.4 0.2-0.8 [facility]kinAutomated blood eosinophil count 2019-10-23 05:20:00* Test Item Value Reference Range Interpretation Comments Eosinophils # (Auto) (test code = 711-2) 0.1 0.0-0.4 [facility]kinAutomated blood basophil count (count/volume)2019-10-23 05:20:00* Test Item Value Reference Range Interpretation Comments Basophils # (Auto) (test code = 704-7) 0.0 0.0-0.1 [facility]ufkinFluoroscopic procedure less than one hour qujbtlqh7535-43-31 05:20:00* Test Item Value Reference Range Interpretation Comments Absolute Immature Granulocyte (auto (rupinder t code = Absolute Immature Granulocyte (auto) 0.02 0-0.1 [facility] LufkinPlatelet etlisspask0830-50-37 05:20:00* Test Item Value Reference Range Interpretation Comments Platelet Morphology Comment (test code = 78813-4) See Comment NO EDTA PLT [facility]ex[facility] Arlingtonerum or plasma sodium measurement (moles/volume)2019-10-23 05:20:00* Test Item Value Reference Range Interpretation Comments Sodium Level (test code = 2951-2) 133 136-145 [facility] Arlingtonerum or plasma potassium measurement (moles/volume)2019-10-23 05:20:00* Test Item Value Reference Range Interpretation Comments Potassium Level (test code = 2823-3) 3.9 3.5-5.1 [facility] Arlingtonerum or plasma chloride measurement (moles/volume)2019-10-23 05:20:00* Test Item Value Reference Range Interpretation Comments Chloride Level (test code = 2075-0) 100 98-107 [facility] Arlingtonerum or plasma carbon dioxide, total measurement (moles/volume)2019-10-23 05:20:00* Test Item Value Reference Range Interpretation Comments Carbon Dioxide Level (test code = 2028-9) 24 22-29 [facility] Arlingtonerum or plasma anion [id number] 05:20:00* Test Item Value Reference Range Interpretation Comments Anion Gap (test code = 28447-5) 12.9 8-16 [facility] Arlingtonerum or plasma urea nitrogen measurement (mass/volume)2019-10-23 05:20:00* Test Item Value Reference Range Interpretation Comments Blood Urea Nitrogen (test code = 3094-0) 54 7-26 [facility] Arlingtonerum or plasma creatinine measurement (mass/volume)2019-10-23 05:20:00* Test Item Value Reference Range Interpretation Comments Creatinine (test code = 2160-0) 4.25 0.72-1.25 [facility] Arlingtonerum or plasma urea nitrogen/creatinine mass gahlk4377-44-13 05:20:00* Test Item Value Reference Range Interpretation Comments BUN/Creatinine Ratio (test code = 3097-3) 13 6-25 [facility]kinEstimated glomerular filtration rate (GFR) zqwwidurccnoh1989-35-62 05:20:00* Test Item Value Reference Range Interpretation Comments Estimat Glomerular Filtration Rate (test code = 473876584) 15 >60 Ranges were taken from the National Kidney Disease Education Program and the [facility] Kid[facility] Foundation literature.Reference ranges:60 or greater: Twaqke11-63 ( for 3 consecutive months): Chronic kidney disease 15 or less: Kidney failureSt. Luke's Health – [facility] LufkinGlucose lpjvpnwxwly4390-53-71 05:20:00* Test Item Value Reference Range Interpretation Comments Glucose Level (test code = BNM5157) 158 74-118 [facility] Arlingtonerum or plasma calcium measurement (mass/volume)2019-10-23 05:20:00* Test Item Value Reference Range Interpretation Comments Calcium Level (test code = 29935-1) 7.8 8.4-10.2 [facility] Arlingtonerum or plasma total bilirubin measurement (mass/volume)2019-10-23 05:20:00* Test Item Value Reference Range Interpretation Comments Total Bilirubin (test code = 1975-2) 5.3 0.2-1.2 [facility]ufkinFluoroscopic procedure less than one hour bpuxvdxn0514-32-86 05:20:00* Test Item Value Reference Range Interpretation Comments Aspartate Amino Transf (AST/SGOT) (test code = Aspartate Amino Transf (AST/SGOT)) 31 5-34 [facility] Arlingtonerum or plasma alanine aminotransferase measurement (enzymatic activity/volume)2019-10-23 05:20:00* Test Item Value Reference Range Interpretation Comments Alanine Aminotransferase (ALT/SGPT) (test code = 1742-6) 36 0-55 [facility] Arlingtonerum or plasma protein measurement (mass/volume)2019-10-23 05:20:00* Test Item Value Reference Range Interpretation Comments Total Protein (test code = 2885-2) 5.8 6.5-8.1 [facility] Arlingtonerum or plasma albumin measurement (mass/volume)2019-10-23 05:20:00* Test Item Value Reference Range Interpretation Comments Albumin (test code = 1751-7) 2.2 3.5-5.0 [facility]kinPlasma globulin measurement (mass/volume) 2019-10-23 05:20:00* Test Item Value Reference Range Interpretation Comments Globulin (test code = 11514-9) 3.6 2.3-3.5 [facility] Arlingtonerum or plasma albumin/globulin mass emckm7308-79-12 05:20:00* Test Item Value Reference Range Interpretation Comments Albumin/Globulin Ratio (test code = 1759-0) 0.6 0.8-2.0 [facility] Arlingtonerum or plasma alkaline phosphatase measurement (enzymatic activity/volume)2019-10-23 05:20:00* Test Item Value Reference Range Interpretation Comments Alkaline Phosphatase (test code = 6768-6) 630 40-150 [facility]kinBlood leukocytes automated count (number/volume)2019-10-23 05:20:00* Test Item Value Reference Range Interpretation Comments White Blood Count (test code = 6690-2) 4.19 4.8-10.8 [facility]kinBlood erythrocytes automated count (number/volume)2019-10-23 05:20:00* Test Item Value Reference Range Interpretation Comments Red Blood Count (test code = 789-8) 2.55 4.3-5.7 [facility]kinBlood hemoglobin measurement (moles/volume)2019-10-23 05:20:00* Test Item Value Reference Range Interpretation Comments Hemoglobin (test code = 97252-7) 8.3 14.0-18.0 [facility]kinAutomated blood hematocrit (volume fraction)2019-10-23 05:20:00* Test Item Value Reference Range Interpretation Comments Hematocrit (test code = 4544-3) 25.0 38.2-49.6 [facility]ufkinAutomated erythrocyte mean corpuscular anfusy4768-01-23 05:20:00* Test Item Value Reference Range Interpretation Comments Mean Corpuscular Volume (test code = 787-2) 98.0 81-99 [facility]ufkinAutomated erythrocyte mean corpuscular hemoglobin (mass per erythrocyte)2019-10-23 05:20:00* Test Item Value Reference Range Interpretation Comments Mean Corpuscular Hemoglobin (test code = 785-6) 32.5 28-32 [facility]ufkinAutomated erythrocyte mean corpuscular hemoglobin concentration measurement (mass/volume)2019-10-23 05:20:00* Test Item Value Reference Range Interpretation Comments Mean Corpuscular Hemoglobin Concent (test code = 786-4) 33.2 31-35 [facility] LufkinRDW PamRb-Fwl8088-50-25 05:20:00* Test Item Value Reference Range Interpretation Comments Red Cell Distribution Width (test code = 12600-4) 17.8 11.7 -14.4 [facility]ufkinAutomated blood platelet count (count/volume)2019-10-23 05:20:00* Test Item Value Reference Range Interpretation Comments Platelet Count (test code = 777-3) 86 140-360 [facility]kinAuthighsmith-rainey specialty hospitaled blood segmented neutrophil count as percentage of total plobfymshl7590-92-65 05:20:00* Test Item Value Reference Range Interpretation Comments Neutrophils (%) (Auto) (test code = 14829-8) 76.2 38.7-80.0 [facility]ufkinAutomated blood lymphocyte count as percentage ot total ysusqxtpua5561-73-17 05:20:00* Test Item Value Reference Range Interpretation Comments Lymphocytes (%) (Auto) (test code = 736-9) 12.6 18.0-39.1 [facility]kinAutomated blood monocyte count as percentage of total aocoxvvydp1589-73-22 05:20:00* Test Item Value Reference Range Interpretation Comments Monocytes (%) (Auto) (test code = 5905-5) 8.6 4.4-11.3 [facility]kinAutomated blood eosinophil count as percentage of total igjmvkknba3049-99-55 05:20:00* Test Item Value Reference Range Interpretation Comments Eosinophils (%) (Auto) (test code = 713-8) 2.1 0.0-6.0 [facility]ufkinAutomated blood basophil count as percentage of total wkniqxmzhx5596-68-78 05:20:00* Test Item Value Reference Range Interpretation Comments Basophils (%) (Auto) (test code = 706-2) 0.0 0.0-1.0 [facility]ufkinFluoroscopic procedure less than one hour ajmdjjnr3364-30-00 05:20:00* Test Item Value Reference Range Interpretation Comments IM GRANULOCYTES % (test code = IM GRANULOCYTES %) 0.5 0.0- 1.0 [facility]ufkinAutomated blood neutrophil count 2019-10-23 05:20:00* Test Item Value Reference Range Interpretation Comments Neutrophils # (Auto) (test code = 751-8) 3.2 2.1-6.9 [facility]kinBlood lymphocytes count (number/volume) 2019-10-23 05:20:00* Test Item Value Reference Range Interpretation Comments Lymphocytes # (Auto) (test code = 28370-1) 0.5 1.0-3.2 [facility]kinBlood monocytes automated count (number/volume)2019-10-23 05:20:00* Test Item Value Reference Range Interpretation Comments Monocytes # (Auto) (test code = 742-7) 0.4 0.2-0.8 [facility]ufkinAutomated blood eosinophil count 2019-10-23 05:20:00* Test Item Value Reference Range Interpretation Comments Eosinophils # (Auto) (test code = 711-2) 0.1 0.0-0.4 [facility]ufkinAutomated blood basophil count (count/volume)2019-10-23 05:20:00* Test Item Value Reference Range Interpretation Comments Basophils # (Auto) (test code = 704-7) 0.0 0.0-0.1 [facility] LufkinFluoroscopic procedure less than one hour axopynwq8481-93-58 05:20:00* Test Item Value Reference Range Interpretation Comments Absolute Immature Granulocyte (auto (rupinder t code = Absolute Immature Granulocyte (auto) 0.02 0-0.1 [facility] LufkinPlatelet usfzqphqcq2228-99-43 05:20:00* Test Item Value Reference Range Interpretation Comments Platelet Morphology Comment (test code = 34011-9) See Comment NO EDTA PLT CLUMPS [facility]exas [facility] Arlingtonerum or plasma sodium measurement (moles/volume)2019-10-23 05:20:00* Test Item Value Reference Range Interpretation Comments Sodium Level (test code = 2951-2) 133 136-145 [facility] Arlingtonerum or plasma potassium measurement (moles/volume)2019-10-23 05:20:00* Test Item Value Reference Range Interpretation Comments Potassium Level (test code = 2823-3) 3.9 3.5-5.1 [facility] Arlingtonerum or plasma chloride measurement (moles/volume)2019-10-23 05:20:00* Test Item Value Reference Range Interpretation Comments Chloride Level (test code = 2075-0) 100 98-107 [facility] Arlingtonerum or plasma carbon dioxide, total measurement (moles/volume)2019-10-23 05:20:00* Test Item Value Reference Range Interpretation Comments Carbon Dioxide Level (test code = 2028-9) 24 22-29 [facility] Arlingtonerum or plasma anion njk1732-02-05 05:20:00* Test Item Value Reference Range Interpretation Comments Anion Gap (test code = 15526-0) 12.9 8-16 [facility] Arlingtonerum or plasma urea nitrogen measurement (mass/volume)2019-10-23 05:20:00* Test Item Value Reference Range Interpretation Comments Blood Urea Nitrogen (test code = 3094-0) 54 7-26 [facility] Arlingtonerum or plasma creatinine measurement (mass/volume)2019-10-23 05:20:00* Test Item Value Reference Range Interpretation Comments Creatinine (test code = 2160-0) 4.25 0.72-1.25 [facility] Arlingtonerum or plasma urea nitrogen/creatinine mass kczal9565-70-44 05:20:00* Test Item Value Reference Range Interpretation Comments BUN/Creatinine Ratio (test code = 3097-3) 13 6-25 [facility]ufkinEstimated glomerular filtration rate (GFR) rryjizwemzwfx8557-63-93 05:20:00* Test Item Value Reference Range Interpretation Comments Estimat Glomerular Filtration Rate (test code = 979377073) 15 >60 Ranges were taken from the National Kidney Disease Education Program and the [facility] Kidney Foundation literature.Reference ranges:60 or greater: Syagma26-61 ( for 3 consecutive months): Chronic kidney disease 15 or less: Kidney failureSt. Luke's Health – Memorial LufkinGlucose nnytefuahii8097-73-45 05:20:00* Test Item Value Reference Range Interpretation Comments Glucose Level (test code = GTS4158) 158 74-118 [facility] Arlingtonerum or plasma calcium measurement (mass/volume)2019-10-23 05:20:00* Test Item Value Reference Range Interpretation Comments Calcium Level (test code = 93882-9) 7.8 8.4-10.2 [facility] Arlingtonerum or plasma total bilirubin measurement (mass/volume)2019-10-23 05:20:00* Test Item Value Reference Range Interpretation Comments Total Bilirubin (test code = 1975-2) 5.3 0.2-1.2 [facility]ufkinFluoroscopic procedure less than one hour loeknjft4246-96-50 05:20:00* Test Item Value Reference Range Interpretation Comments Aspartate Amino Transf (AST/SGOT) (test code = Aspartate Amino Transf (AST/SGOT)) 31 5-34 [facility] Arlingtonerum or plasma alanine aminotransferase measurement (enzymatic activity/volume)2019-10-23 05:20:00* Test Item Value Reference Range Interpretation Comments Alanine Aminotransferase (ALT/SGPT) (test code = 1742-6) 36 0-55 [facility] Arlingtonerum or plasma protein measurement (mass/volume)2019-10-23 05:20:00* Test Item Value Reference Range Interpretation Comments Total Protein (test code = 2885-2) 5.8 6.5-8.1 [facility] Arlingtonerum or plasma albumin measurement (mass/volume)2019-10-23 05:20:00* Test Item Value Reference Range Interpretation Comments Albumin (test code = 1751-7) 2.2 3.5-5.0 [facility]ufkinPlasma globulin measurement (mass/volume) 2019-10-23 05:20:00* Test Item Value Reference Range Interpretation Comments Globulin (test code = 19105-0) 3.6 2.3-3.5 [facility] Arlingtonerum or plasma albumin/globulin mass plraj7069-74-23 05:20:00* Test Item Value Reference Range Interpretation Comments Albumin/Globulin Ratio (test code = 1759-0) 0.6 0.8-2.0 [facility] Arlingtonerum or plasma alkaline phosphatase measurement (enzymatic activity/volume)2019-10-23 05:20:00* Test Item Value Reference Range Interpretation Comments Alkaline Phosphatase (test code = 6768-6) 630 40-150 [facility] LufkinPlatelet vrblynwqev8972-09-14 05:20:00* Test Item Value Reference Range Interpretation Comments Platelet Morphology Comment (test code = 72844-6) See Comment NO EDTA PLT CLUMPS [facility]ENTexas [facility] Arlingtonerum or plasma sodium measurement (moles/volume)2019-10-23 05:20:00* Test Item Value Reference Range Interpretation Comments Sodium Level (test code = 2951-2) 133 136-145 [facility] Arlingtonerum or plasma potassium measurement (moles/volume)2019-10-23 05:20:00* Test Item Value Reference Range Interpretation Comments Potassium Level (test code = 2823-3) 3.9 3.5-5.1 [facility] Arlingtonerum or plasma chloride measurement (moles/volume)2019-10-23 05:20:00* Test Item Value Reference Range Interpretation Comments Chloride Level (test code = 2075-0) 100 98-107 [facility] Arlingtonerum or plasma carbon dioxide, total measurement (moles/volume)2019-10-23 05:20:00* Test Item Value Reference Range Interpretation Comments Carbon Dioxide Level (test code = 2028-9) 24 22-29 [facility] Arlingtonerum or plasma anion jzq1411-15-41 05:20:00* Test Item Value Reference Range Interpretation Comments Anion Gap (test code = 82541-4) 12.9 8-16 [facility] Arlingtonerum or plasma urea nitrogen measurement (mass/volume)2019-10-23 05:20:00* Test Item Value Reference Range Interpretation Comments Blood Urea Nitrogen (test code = 3094-0) 54 7-26 [facility] Arlingtonerum or plasma creatinine measurement (mass/volume)2019-10-23 05:20:00* Test Item Value Reference Range Interpretation Comments Creatinine (test code = 2160-0) 4.25 0.72-1.25 [facility] Arlingtonerum or plasma urea nitrogen/creatinine mass nduyn5949-06-31 05:20:00* Test Item Value Reference Range Interpretation Comments BUN/Creatinine Ratio (test code = 3097-3) 13 6-25 [facility]ufkinEstimated glomerular filtration rate (GFR) noypkdhlnnunh8214-21-27 05:20:00* Test Item Value Reference Range Interpretation Comments Estimat Glomerular Filtration Rate (test code = 219966884) 15 >60 Ranges were taken from the National Kidney Disease Education Program and the [facility] literature.Reference ranges:60 or greater: Duicpe77-48 ( for 3 consecutive months): Chronic kidney disease 15 or less: Kidney failureSt. Luke's Health – Memorial LufkinGlucose opbqipiywow5100-84-74 05:20:00* Test Item Value Reference Range Interpretation Comments Glucose Level (test code = FEG1073) 158 74-118 [facility]erum or plasma calcium measurement (mass/volume)2019-10-23 05:20:00* Test Item Value Reference Range Interpretation Comments Calcium Level (test code = 22340-4) 7.8 8.4-10.2 [facility] Arlingtonerum or plasma total bilirubin measurement (mass/volume)2019-10-23 05:20:00* Test Item Value Reference Range Interpretation Comments Total Bilirubin (test code = 1975-2) 5.3 0.2-1.2 [facility] LufkinFluoroscopic procedure less than one hour yxwrzddk0609-99-75 05:20:00* Test Item Value Reference Range Interpretation Comments Aspartate Amino Transf (AST/SGOT) (test code = Aspartate Amino Transf (AST/SGOT)) 31 5-34 [facility] Arlingtonerum or plasma alanine aminotransferase measurement (enzymatic activity/volume)2019-10-23 05:20:00* Test Item Value Reference Range Interpretation Comments Alanine Aminotransferase (ALT/SGPT) (test code = 1742-6) 36 0-55 [facility] Arlingtonerum or plasma protein measurement (mass/volume)2019-10-23 05:20:00* Test Item Value Reference Range Interpretation Comments Total Protein (test code = 2885-2) 5.8 6.5-8.1 [facility] Arlingtonerum or plasma albumin measurement (mass/volume)2019-10-23 05:20:00* Test Item Value Reference Range Interpretation Comments Albumin (test code = 1751-7) 2.2 3.5-5.0 [facility] LufkinPlasma globulin measurement (mass/volume) 2019-10-23 05:20:00* Test Item Value Reference Range Interpretation Comments Globulin (test code = 35366-5) 3.6 2.3-3.5 [facility] Arlingtonerum or plasma albumin/globulin mass onamq5082-75-60 05:20:00* Test Item Value Reference Range Interpretation Comments Albumin/Globulin Ratio (test code = 1759-0) 0.6 0.8-2.0 [facility] Arlingtonerum or plasma alkaline phosphatase measurement (enzymatic activity/volume)2019-10-23 05:20:00* Test Item Value Reference Range Interpretation Comments Alkaline Phosphatase (test code = 6768-6) 630 40-150 [facility] LufkinPlatelet cjllojymnm3575-23-09 05:20:00* Test Item Value Reference Range Interpretation Comments Platelet Morphology Comment (test code = 43087-4) See Comment NO EDTA PLT CLUMPS SEENTexas Health [facility] Arlingtonerum or plasma sodium measurement (moles/volume)2019-10-23 05:20:00* Test Item Value Reference Range Interpretation Comments Sodium Level (test code = 2951-2) 133 136-145 [facility] Arlingtonerum or plasma potassium measurement (moles/volume)2019-10-23 05:20:00* Test Item Value Reference Range Interpretation Comments Potassium Level (test code = 2823-3) 3.9 3.5-5.1 [facility] Arlingtonerum or plasma chloride measurement (moles/volume)2019-10-23 05:20:00* Test Item Value Reference Range Interpretation Comments Chloride Level (test code = 2075-0) 100 98-107 [facility] Arlingtonerum or plasma carbon dioxide, total measurement (moles/volume)2019-10-23 05:20:00* Test Item Value Reference Range Interpretation Comments Carbon Dioxide Level (test code = 2028-9) 24 22-29 [facility] Arlingtonerum or plasma anion mal3793-40-69 05:20:00* Test Item Value Reference Range Interpretation Comments Anion Gap (test code = 93307-5) 12.9 8-16 [facility]er[facility] or plasma urea nitrogen measurement (mass/volume)2019-10-23 05:20:00* Test Item Value Reference Range Interpretation Comments Blood Urea Nitrogen (test code = 3094-0) 54 7-26 [facility] Arlingtonerum or plasma creatinine measurement (mass/volume)2019-10-23 05:20:00* Test Item Value Reference Range Interpretation Comments Creatinine (test code = 2160-0) 4.25 0.72-1.25 [facility] Arlingtonerum or plasma urea nitrogen/creatinine mass agsxg9491-59-73 05:20:00* Test Item Value Reference Range Interpretation Comments BUN/Creatinine Ratio (test code = 3097-3) 13 6-25 [facility] LufkinEstimated glomerular filtration rate (GFR) dhzmnjukjvxtt3536-76-52 05:20:00* Test Item Value Reference Range Interpretation Comments Estimat Glomerular Filtration Rate (test code = 355956541) 15 >60 Ranges were taken from the National Kidney Disease Education Program and the [facility] Kidney Foundation literature.Reference ranges:60 or greater: Okftwt51-55 ( for 3 consecutive months): Chronic kidney disease 15 or less: Kidney failureSt. Luke's Health – Memorial LufkinGlucose qlfzroupjxi0310-59-79 05:20:00* Test Item Value Reference Range Interpretation Comments Glucose Level (test code = LQK1286) 158 74-118 [facility]erum or plasma calcium measurement (mass/volume)2019-10-23 05:20:00* Test Item Value Reference Range Interpretation Comments Calcium Level (test code = 25854-8) 7.8 8.4-10.2 [facility] Arlingtonerum or plasma total bilirubin measurement (mass/volume)2019-10-23 05:20:00* Test Item Value Reference Range Interpretation Comments Total Bilirubin (test code = 1975-2) 5.3 0.2-1.2 [facility] LufkinFluoroscopic procedure less than one hour ofgciayy4642-86-54 05:20:00* Test Item Value Reference Range Interpretation Comments Aspartate Amino Transf (AST/SGOT) (test code = Aspartate Amino Transf (AST/SGOT)) 31 5-34 [facility] Arlingtonerum or plasma alanine aminotransferase measurement (enzymatic activity/volume)2019-10-23 05:20:00* Test Item Value Reference Range Interpretation Comments Alanine Aminotransferase (ALT/SGPT) (test code = 1742-6) 36 0-55 [facility] Arlingtonerum or plasma protein measurement (mass/volume)2019-10-23 05:20:00* Test Item Value Reference Range Interpretation Comments Total Protein (test code = 2885-2) 5.8 6.5-8.1 [facility] Arlingtonerum or plasma albumin measurement (mass/volume)2019-10-23 05:20:00* Test Item Value Reference Range Interpretation Comments Albumin (test code = 1751-7) 2.2 3.5-5.0 [facility] LufkinPlasma globulin measurement (mass/volume) 2019-10-23 05:20:00* Test Item Value Reference Range Interpretation Comments Globulin (test code = 00480-5) 3.6 2.3-3.5 [facility] Arlingtonerum or plasma albumin/globulin mass cvorx8349-25-42 05:20:00* Test Item Value Reference Range Interpretation Comments Albumin/Globulin Ratio (test code = 1759-0) 0.6 0.8-2.0 [facility] Arlingtonerum or plasma alkaline phosphatase measurement (enzymatic activity/volume)2019-10-23 05:20:00* Test Item Value Reference Range Interpretation Comments Alkaline Phosphatase (test code = 6768-6) 630 40-150 [facility] LufkinAlkaline Kmnftgflvbs7897-11-76 03:42:00* Test Item Value Reference Range Interpretation Comments Alkaline Phosphatase (test code = 6768-6) 865 39-[address] [facility] Memorial LufkinAlkaline Phosphatase Iso-Intestine 2019-10-23 03:42:00* Test Item Value Reference Range Interpretation Comments Alkaline Phosphatase Iso-Intestine (test code = 58007-3) 0 0-18 Performed at: [facility] [address] [id number] Director: Roe Contreras MD, Phone: [phone] at: [facility] [address] [id number] Director: Dasha Lr MD, Ph one: [phone]. Luke's Health – Memorial LufkinAlkaline Phosphatase Ire-Iaym6700-12-25 03:42:00* Test Item Value Reference Range Interpretation Comments Alkaline Phosphatase Iso-Bone (test code = 26487-2) 21 12 -68 [facility] LufkinAlkaline Phosphatase Grx-Kwgya2389-48-25 03:42:00* Test Item Value Reference Range Interpretation Comments Alkaline Phosphatase Iso-Liver (test code = 63416-8) 79 1 3-88 [facility] LufkinHepatitis Be Naugzeqa6774-25-70 22:13:00 * Test Item Value Reference Range Interpretation Comments Hepatitis Be Antibody (test code = 03918-0) Negative Negative Performed at: [facility] - [address] [id number] Ophthalmic Medical Technologist: Dasha Lr MD, Phone: [phone]. Luke's Health – Memorial LufkinHepatitis B Core Total Volxhgxx9041-39-53 22:13:00* Test Item Value Reference Range Interpretation Comments Hepatitis B Core Total Antibody (test code = 78256-1) Negative Negative [facility]kinH[facility] B Surface Xuohjlw2027-12-89 22:13:00* Test Item Value Reference Range Interpretation Comments Hepatitis B Surface Antigen (test code = 5196-1) Negative Negat [address] [facility]kinHesan [facility] B Core IgM Ncnfwgfm6753-04-09 22:13:00* Test Item Value Reference Range Interpretation Comments Hepatitis B Core IgM Antibody (test code = 25437-0) Negative Ne gative Performed at: - [facility] [id number] Director: Roe Contreras MD, Phone: [phone]. Luke's Health – Memorial LufkinAnti-Mitochondrial Jlwmapge6444-75-57 22:13:00* Test Item Value Reference Range Interpretation Comments Anti-Mitochondrial Antibody (test code = 70825-3) <20.0 0.0- 20.0 Negative 0.0 - 20.0 Equivocal 20.1 - 24.9 Positive > 24.9Mitochondrial (M2) Antibodies are found in 90-96% ofpatients with primary bi liary cirrhosis.Performed at: - [address] [id number] Director: Dasha Lr MD, Phone: [phone]. Luke's Health – Memorial LufkinUS ABDOMEN XOCCBIC3982-20-52 08:51:00 [place] [address] Patient Name: VIOLETTE LAMB MR #: [id number] : 1965 Age/Sex: 54/M Req #: [id number] Adm Physician: PAWEL SALVADOR MD Ordered by: YAJAIRA GRAMAJO MD Report #: [id number] Location: MED/SURG2 Room/Bed: 214-1 Procedure: 032 4-0001 US/US ABDOMEN LIMITED Exam Date: 10/22/19 Jsoiah alicea Time: 744 REPORT STATUS: Signed TECHNIQUE: [...] on 10/22/19857 COPY TO: YAJAIRA GRAMAJO MD Vqkxd-7-Sjrxucxmyfn 2019-10-21 15:56:00* Test Item Value Reference Range Interpretation Comments Fuqwl-2-Ebxvtsxrpoj (test code = 1825-9) 992 168-032 Performed at: [facility] [address] [place] [id number] 4Lab Director: RACHELLE Singh MD, Phone: [phone]. Luke's Health – Memorial LufkinCeruloplasmin2020-03-23 15:56:00* Test Item Value Reference Range Interpretation Comments Ceruloplasmin (test code = 2064-4) 41.0 16.0-31.[address] [facility] LufkinDirect Zetolhysh6197-89-06 06:00:00* Test Item Value Reference Range Interpretation Comments Direct Bilirubin (test code = 04586-1) 6.8 0.0-0.5 H [facility]er[facility] or plasma conjugated bilirubin measurement (mass/volume)2019-10-21 05:15:00* Test Item Value Reference Range Interpretation Comments Direct Bilirubin (test code = 97248-6) 6.8 0.0-0.5 [facility] Arlingtonerum or plasma conjugated bilirubin measurement (mass/volume)2019-10-21 05:15:00* Test Item Value Reference Range Interpretation Comments Direct Bilirubin (test code = 00042-1) 6.8 0.0-0.5 [facility] Arlingtonerum or plasma conjugated bilirubin measurement (mass/volume)2019-10-21 05:15:00* Test Item Value Reference Range Interpretation Comments Direct Bilirubin (test code = 53449-5) 6.8 0.0-0.5 [facility] Arlingtonerum or plasma conjugated bilirubin measurement (mass/volume)2019-10-21 05:15:00* Test Item Value Reference Range Interpretation Comments Direct Bilirubin (test code = 37852-2) 6.8 0.0-0.5 [facility] Memorial LufkinBlood suvyehm5678-96-59 11:35:00* Test Item Value Reference Range Interpretation Comments Blood Culture (test code = 25874345) NO GROWTH AFTER 5 DAYS, FINAL REPORT [facility] tuuukdl9653-02-08 11:35:00* Test Item Value Reference Range Interpretation Comments Blood Culture (test code = 70692470) NO GROWTH AFTER 5 DAYS, FINAL REPORT [facility] jtrfoos0613-67-87 11:35:00* Test Item Value Reference Range Interpretation Comments Blood Culture (test code = 04256031) NO GROWTH AFTER 5 DAYS, FINAL REPORT [facility] LufkinBlood uehbxzk5272-67-12 11:35:00* Test Item Value Reference Range Interpretation Comments Blood Culture (test code = 65475894) NO GROWTH AFTER 5 DAYS, FINAL REPORT [facility]ufkinChlamydia pneumoniae DNA (PCR)2019-10-20 05:32:00* Test Item Value Reference Range Interpretation Comments Chlamydia pneumoniae DNA (PCR) (test code = Chlamydia pneumoniae DNA (PCR)) NOT DETECTED NOT DETECT [facility] LufkinInfluenza Type A (RT-PCR)2019-10-20 05:32:00* Test Item Value Reference Range Interpretation Comments Influenza Type A (RT-PCR) (test code = 064311059) NOT DETECTED NOT DETECT [facility] LufkinMycoplasma pneumoniae (PCR)2019-10-20 05:32:00* Test Item Value Reference Range Interpretation Comments Mycoplasma pneumoniae (PCR) (test code = Mycoplasma pn eumoniae (PCR)) NOT DETECTED NOT DETECT [facility] LufkinInfluenza Type B (RT-PCR)2019-10-20 05:32:00* Test Item Value Reference Range Interpretation Comments Influenza Type B (RT-PCR) (test code = 557545952) NOT DETECTED NOT DETECT [facility] LufkinRespiratory Syncytial Virus (PCR) 2019-10-20 05:32:00* Test Item Value Reference Range Interpretation Comments Respiratory Syncytial Virus (PCR) (test code = 996244073) NO T DETECTED NOT DETECT [facility] LufkinBordetella pertussis DNA (PCR)2019-10-20 05:32:00* Test Item Value Reference Range Interpretation Comments Bordetella pertussis DNA (PCR) (test code = 700284167) NOT DETEC SHAGGY NOT DETECT [facility] LufkinParainfluenza Type 1 (PCR)2019-10-20 05:32:00* Test Item Value Reference Range Interpretation Comments Parainfluenza Type 1 (PCR) (test code = 611325687) NOT DETECTED NOT DETECT [facility] LufkinParainfluenza Type 2 (PCR)2019-10-20 05:32:00* Test Item Value Reference Range Interpretation Comments Parainfluenza Type 2 (PCR) (test code = 447028838) NOT DETECTED NOT DETECT [facility]ufkinParainfluenza Type 3 (PCR)2019-10-20 05:32:00* Test Item Value Reference Range Interpretation Comments Parainfluenza Type 3 (PCR) (test code = 558968745) NOT DETECTED NOT DETECT [facility]ufkinParainfluenza Type 4 (PCR)2019-10-20 05:32:00* Test Item Value Reference Range Interpretation Comments Parainfluenza Type 4 (PCR) (test code = Parainfluenza Type 4 (PCR)) NOT DETECTED NOT DETECT [facility] LufkinRhinovirus (PCR)2019-10-20 05:32:00* Test Item Value Reference Range Interpretation Comments Rhinovirus (PCR) (test code = 493754760) NOT DETECTED NOT DETECT [facility] [place]kinHuatl[place] Metapneumovirus (PCR)2019-10-20 05:32:00* Test Item Value Reference Range Interpretation Comments Human Metapneumovirus (PCR) (test code = 844420968) DETECTED NO T DETECT ABNORMALCHI Matagorda Regional Medical CenterAdenovirus (PCR)2019-10-20 05:32:00* Test Item Value Reference Range Interpretation Comments Adenovirus (PCR) (test code = 827438052) NOT DETECTED NOT DETECT [facility]kinCoronavirus Type HKU1 (PCR)2019-10-20 05:32:00* Test Item Value Reference Range Interpretation Comments Coronavirus Type HKU1 (PCR) (test code = Coronavirus T ype HKU1 (PCR)) NOT DETECTED NOT DETECT [facility]kinCoronavirus Type NL63 (PCR)2019-10-20 05:32:00* Test Item Value Reference Range Interpretation Comments Coronavirus Type NL63 (PCR) (test code = Coronavirus T ype NL63 (PCR)) NOT DETECTED NOT DETECT [facility]kinCoronavirus Type OC43 (PCR)2019-10-20 05:32:00* Test Item Value Reference Range Interpretation Comments Coronavirus Type OC43 (PCR) (test code = Coronavirus T ype OC43 (PCR)) NOT DETECTED NOT DETECT [facility]ufkinCoronavirus Type 229E (PCR)2019-10-20 05:32:00* Test Item Value Reference Range Interpretation Comments Coronavirus Type 229E (PCR) (test code = Coronavirus T ype 229E (PCR)) NOT DETECTED NOT DETECT [facility] [place], [place] [address]RESULTS HAVE BEEN CALLED TO THE PHYSICIANSt. Luke's Health – Memorial LufkinCHEST SINGLE (PORTABLE)2019-10-19 10:26:00 [facility] [address] [place] [address] Patient Name: VIOLETTE LAMB MR #: [id number] : 1965 Age/Sex: 54/M Req #: [id number] Adm Physician: PAWEL SALVADOR MD Ordered by: PAWEL SALVADOR MD Report #: [id number] Location: [facility] Room/Bed: [place] [address] Procedure: 0321 -0009 DX/CHEST SINGLE (PORTABLE) Exam [...] PAWEL SALVADOR MD Influenza Virus Types A,B Opmwqtq8692-79-51 09:17:00* Test Item Value Reference Range Interpretation Comments Influenza Virus Types A,B Antigen (test code = 83743-3) NEGATIVE NEGATIVE [facility]ufkinInfluenza virus A and B antigen identification by itxexvupqikfqauoig7859-97-76 08:45:00* Test Item Value Reference Range Interpretation Comments Influenza Virus Types A,B Antigen (test code = 65167-3) NEGATIVE NEGATIVE [facility] LufkinFluoroscopic procedure less than one hour mwfjlbvd9719-08-20 08:45:00* Test Item Value Reference Range Interpretation Comments Chlamydia pneumoniae DNA (PCR) (test code = Chlamydia pneumoniae DNA (PCR)) NOT DETECTED NOT DETECT [facility]ufkinRespiratory virus azjkp9678-61-87 08:45:00* Test Item Value Reference Range Interpretation Comments Influenza Type A (RT-PCR) (test code = 647365167) NOT DETECTED NOT DETECT [facility]ufkinFluoroscopic procedure less than one hour mfjlekzc1109-40-42 08:45:00* Test Item Value Reference Range Interpretation Comments Mycoplasma pneumoniae (PCR) (test code = Mycoplasma pn eumoniae (PCR)) NOT DETECTED NOT DETECT [facility] CenterRespiratory virus clggt5047-28-79 08:45:00* Test Item Value Reference Range Interpretation Comments Influenza Type B (RT-PCR) (test code = 194014642) NOT DETECTED NOT DETECT [facility]kinRespiratory virus xghdf0657-40-93 08:45:00* Test Item Value Reference Range Interpretation Comments Respiratory Syncytial Virus (PCR) (test code = 080233135) NO T DETECTED NOT DETECT [facility]kinRespiratory virus uyfcb8872-78-76 08:45:00* Test Item Value Reference Range Interpretation Comments Bordetella pertussis DNA (PCR) (test code = 442147366) NOT DETEC SHAGGY NOT DETECT [facility]ufkinRespiratory virus uuspi2579-32-75 08:45:00* Test Item Value Reference Range Interpretation Comments Parainfluenza Type 1 (PCR) (test code = 610317697) NOT DETECTED NOT DETECT [facility] CenterRespiratory virus gdnkh8077-85-57 08:45:00* Test Item Value Reference Range Interpretation Comments Parainfluenza Type 2 (PCR) (test code = 409798524) NOT DETECTED NOT DETECT [facility] CenterRespiratory virus zaucr3387-75-77 08:45:00* Test Item Value Reference Range Interpretation Comments Parainfluenza Type 3 (PCR) (test code = 085985125) NOT DETECTED NOT DETECT [facility] CenterFluoroscopic procedure less than one hour ajjxuxuk8980-78-09 08:45:00* Test Item Value Reference Range Interpretation Comments Parainfluenza Type 4 (PCR) (test code = Parainfluenza Type 4 (PCR)) NOT DETECTED NOT DETECT [facility] CenterRespiratory virus rwfir1665-74-90 08:45:00* Test Item Value Reference Range Interpretation Comments Rhinovirus (PCR) (test code = 160286026) NOT DETECTED NOT DETECT [facility] CenterRespiratory virus mkqyp6070-10-00 08:45:00* Test Item Value Reference Range Interpretation Comments Human Metapneumovirus (PCR) (test code = 929721713) DETECTED NO T DETECT ABNORMALCHI Matagorda Regional Medical CenterRespiratory virus hjrkl8075-85-52 08:45:00* Test Item Value Reference Range Interpretation Comments Adenovirus (PCR) (test code = 370130206) NOT DETECTED NOT DETECT [facility] CenterFluoroscopic procedure less than one hour dmixdhlb1887-60-28 08:45:00* Test Item Value Reference Range Interpretation Comments Coronavirus Type 229E (PCR) (test code = Coronavirus T ype 229E (PCR)) NOT DETECTED NOT DETECT Test performed at [place] [address]RESULTS HAVE BEEN CALLED TO THE PHYSICIANSt. Luke's Health – [facility] LufkinFluoroscopic procedure less than one hour zexrcett0814-94-96 08:45:00* Test Item Value Reference Range Interpretation Comments Coronavirus Type HKU1 (PCR) (test code = Coronavirus T ype HKU1 (PCR)) NOT DETECTED NOT DETECT [facility]ufkinFluoroscopic procedure less than one hour orilntho6122-53-14 08:45:00* Test Item Value Reference Range Interpretation Comments Coronavirus Type NL63 (PCR) (test code = Coronavirus T ype NL63 (PCR)) NOT DETECTED NOT DETECT [facility]ufkinFluoroscopic procedure less than one hour cfcngoxs8692-44-15 08:45:00* Test Item Value Reference Range Interpretation Comments Coronavirus Type OC43 (PCR) (test code = Coronavirus T ype OC43 (PCR)) NOT DETECTED NOT DETECT [facility] LufkinInfluenza virus A and B antigen identification by gbgelegrfbvbanhfuy7752-82-40 08:45:00* Test Item Value Reference Range Interpretation Comments Influenza Virus Types A,B Antigen (test code = 43284-5) NEGATIVE NEGATIVE [facility]ufkinFluoroscopic procedure less than one hour wzpesztn1459-09-00 08:45:00* Test Item Value Reference Range Interpretation Comments Chlamydia pneumoniae DNA (PCR) (test code = Chlamydia pneumoniae DNA (PCR)) NOT DETECTED NOT DETECT [facility]ufkinRespiratory virus sudfy4453-32-74 08:45:00* Test Item Value Reference Range Interpretation Comments Influenza Type A (RT-PCR) (test code = 782109808) NOT DETECTED NOT DETECT [facility]ufkinFluoroscopic procedure less than one hour drfzzrru3432-61-49 08:45:00* Test Item Value Reference Range Interpretation Comments Mycoplasma pneumoniae (PCR) (test code = Mycoplasma pn eumoniae (PCR)) NOT DETECTED NOT DETECT [facility]kinRespiratory virus bcpsv5117-06-49 08:45:00* Test Item Value Reference Range Interpretation Comments Influenza Type B (RT-PCR) (test code = 163608679) NOT DETECTED NOT DETECT [facility]kinRespiratory virus tfgfg1327-28-65 08:45:00* Test Item Value Reference Range Interpretation Comments Respiratory Syncytial Virus (PCR) (test code = 433624216) NO T DETECTED NOT DETECT [facility] CenterRespiratory virus ehjtm1759-85-03 08:45:00* Test Item Value Reference Range Interpretation Comments Bordetella pertussis DNA (PCR) (test code = 409614574) NOT DETEC SHAGGY NOT DETECT [facility]kinRespiratory virus zfixy5451-40-40 08:45:00* Test Item Value Reference Range Interpretation Comments Parainfluenza Type 1 (PCR) (test code = 021512581) NOT DETECTED NOT DETECT [facility] shkao3749-37-20 08:45:00* Test Item Value Reference Range Interpretation Comments Parainfluenza Type 2 (PCR) (test code = 627456318) NOT DETECTED NOT DETECT [facility]iratory [facility] pixbb1458-08-18 08:45:00* Test Item Value Reference Range Interpretation Comments Parainfluenza Type 3 (PCR) (test code = 694904936) NOT DETECTED NOT DETECT [facility] CenterFluoroscopic procedure less than one hour gjgcqdbe8703-63-44 08:45:00* Test Item Value Reference Range Interpretation Comments Parainfluenza Type 4 (PCR) (test code = Parainfluenza Type 4 (PCR)) NOT DETECTED NOT DETECT [facility] jkkba3984-19-43 08:45:00* Test Item Value Reference Range Interpretation Comments Rhinovirus (PCR) (test code = 802544089) NOT DETECTED NOT [facility]ECT [facility] vyfjr9534-30-33 08:45:00* Test Item Value Reference Range Interpretation Comments Human Metapneumovirus (PCR) (test code = 211695870) DETECTED NO T DETECT ABNORMALCHI [facility] CenterRespiratory virus rgige1635-05-46 08:45:00* Test Item Value Reference Range Interpretation Comments Adenovirus (PCR) (test code = 723243783) NOT DETECTED NOT DETECT [facility] CenterFluoroscopic procedure less than one hour funzvutg0527-80-30 08:45:00* Test Item Value Reference Range Interpretation Comments Coronavirus Type 229E (PCR) (test code = Coronavirus T ype 229E (PCR)) NOT DETECTED NOT DETECT Test performed at [facility] [place] [address] 7 7570RESULTS HAVE BEEN CALLED TO THE PHYSICIANCH[facility] CenterFluoroscopic procedure less than one hour ciuhykyu4700-37-49 08:45:00* Test Item Value Reference Range Interpretation Comments Coronavirus Type HKU1 (PCR) (test code = Coronavirus T ype HKU1 (PCR)) NOT DETECTED NOT DETECT [facility]kinFluoroscopic procedure less than one hour kyxkjamf9191-44-75 08:45:00* Test Item Value Reference Range Interpretation Comments Coronavirus Type NL63 (PCR) (test code = Coronavirus T ype NL63 (PCR)) NOT DETECTED NOT DETECT [facility]kinFluoroscopic procedure less than one hour nnsjjbqj8714-04-72 08:45:00* Test Item Value Reference Range Interpretation Comments Coronavirus Type OC43 (PCR) (test code = Coronavirus T ype OC43 (PCR)) NOT DETECTED NOT DETECT [facility]kinInfluenza virus A and B antigen identification by bvpppfeonymnvgodts7750-88-58 08:45:00* Test Item Value Reference Range Interpretation Comments Influenza Virus Types A,B Antigen (test code = 73829-0) NEGATIVE NEGATIVE [facility]kinFluoroscopic procedure less than one hour sqlgvytu4532-35-15 08:45:00* Test Item Value Reference Range Interpretation Comments Chlamydia pneumoniae DNA (PCR) (test code = Chlamydia pneumoniae DNA (PCR)) NOT DETECTED NOT DETECT [facility]kinRespiratory virus phdou6680-77-35 08:45:00* Test Item Value Reference Range Interpretation Comments Influenza Type A (RT-PCR) (test code = 724855592) NOT DETECTED NOT DETECT [facility]kinFluoroscopic procedure less than one hour llqkiecr0362-21-16 08:45:00* Test Item Value Reference Range Interpretation Comments Mycoplasma pneumoniae (PCR) (test code = Mycoplasma pn eumoniae (PCR)) NOT DETECTED NOT DETECT [facility]kinRespiratory virus fcdmm1362-82-12 08:45:00* Test Item Value Reference Range Interpretation Comments Influenza Type B (RT-PCR) (test code = 668149379) NOT DETECTED NOT DETECT [facility]kinRespiratory virus ifqgz5038-90-09 08:45:00* Test Item Value Reference Range Interpretation Comments Respiratory Syncytial Virus (PCR) (test code = 882329097) NO T DETECTED NOT DETECT [facility] CenterRes[facility] virus kkdsb8470-41-20 08:45:00* Test Item Value Reference Range Interpretation Comments Bordetella pertussis DNA (PCR) (test code = 355625935) NOT DETEC SHAGGY NOT DETECT [facility] CenterRespiratory virus bfpww9727-18-83 08:45:00* Test Item Value Reference Range Interpretation Comments Parainfluenza Type 1 (PCR) (test code = 162931507) NOT DETECTED NOT DETECT [facility] CenterRes[facility] virus trwci5935-94-02 08:45:00* Test Item Value Reference Range Interpretation Comments Parainfluenza Type 2 (PCR) (test code = 507683564) NOT DETECTED NOT DETECT [facility] CenterRespiratory virus kvrne4758-09-59 08:45:00* Test Item Value Reference Range Interpretation Comments Parainfluenza Type 3 (PCR) (test code = 346073152) NOT DETECTED NOT DETECT [facility] CenterFluoroscopic procedure less than one hour xskmzers0440-56-26 08:45:00* Test Item Value Reference Range Interpretation Comments Parainfluenza Type 4 (PCR) (test code = Parainfluenza Type 4 (PCR)) NOT DETECTED NOT DETECT [facility] CenterRes[facility] virus xxtci2153-92-34 08:45:00* Test Item Value Reference Range Interpretation Comments Rhinovirus (PCR) (test code = 797513261) NOT DETECTED NOT DETECT [facility] CenterRes[facility] virus kxork2167-36-39 08:45:00* Test Item Value Reference Range Interpretation Comments Human Metapneumovirus (PCR) (test code = 313084527) DETECTED NO T DETECT ABNORMALCH[facility] CenterRespiratory virus megqx2417-13-78 08:45:00* Test Item Value Reference Range Interpretation Comments Adenovirus (PCR) (test code = 059794929) NOT DETECTED NOT DETECT [facility]kinFluoroscopic procedure less than one hour jkdzkzjy4418-82-15 08:45:00* Test Item Value Reference Range Interpretation Comments Coronavirus Type 229E (PCR) (test code = Coronavirus T ype 229E (PCR)) NOT DETECTED NOT DETECT Test performed at [place] [address] 9950RESULTS HAVE BEEN CALLED TO THE PHYSICIANSt. [facility]ufkinFluoroscopic procedure less than one hour ejimgpfk4818-42-25 08:45:00* Test Item Value Reference Range Interpretation Comments Coronavirus Type HKU1 (PCR) (test code = Coronavirus T ype HKU1 (PCR)) NOT DETECTED NOT DETECT [facility]kinFluoroscopic procedure less than one hour ehcutbua9112-93-14 08:45:00* Test Item Value Reference Range Interpretation Comments Coronavirus Type NL63 (PCR) (test code = Coronavirus T ype NL63 (PCR)) NOT DETECTED NOT DETECT [facility]kinFluoroscopic procedure less than one hour kfnywuyi1349-88-64 08:45:00* Test Item Value Reference Range Interpretation Comments Coronavirus Type OC43 (PCR) (test code = Coronavirus T ype OC43 (PCR)) NOT DETECTED NOT DETECT [facility]kinInfluenza virus A and B antigen identification by hqrqjvhdsptdopcqvl7807-61-91 08:45:00* Test Item Value Reference Range Interpretation Comments Influenza Virus Types A,B Antigen (test code = 72237-5) NEGATIVE NEGATIVE [facility]kinFluoroscopic procedure less than one hour rmhpeteo6279-74-35 08:45:00* Test Item Value Reference Range Interpretation Comments Chlamydia pneumoniae DNA (PCR) (test code = Chlamydia pneumoniae DNA (PCR)) NOT DETECTED NOT DETECT [facility]kinRespiratory virus wmduw7325-67-23 08:45:00* Test Item Value Reference Range Interpretation Comments Influenza Type A (RT-PCR) (test code = 322999952) NOT DETECTED NOT DETECT [facility]kinFluoroscopic procedure less than one hour xqsmrrrc8629-08-74 08:45:00* Test Item Value Reference Range Interpretation Comments Mycoplasma pneumoniae (PCR) (test code = Mycoplasma pn eumoniae (PCR)) NOT DETECTED NOT DETECT [facility]kinRespiratory virus ypzao1282-37-43 08:45:00* Test Item Value Reference Range Interpretation Comments Influenza Type B (RT-PCR) (test code = 185451989) NOT DETECTED NOT DETECT [facility]kinRespiratory virus lsxpn4502-84-26 08:45:00* Test Item Value Reference Range Interpretation Comments Respiratory Syncytial Virus (PCR) (test code = 714538246) NO T DETECTED NOT DETECT [facility]kinRespiratory virus jlbxv6669-17-15 08:45:00* Test Item Value Reference Range Interpretation Comments Bordetella pertussis DNA (PCR) (test code = 912228201) NOT DETEC SHAGGY NOT DETECT [facility]kinRespiratory virus kyusa3499-89-28 08:45:00* Test Item Value Reference Range Interpretation Comments Parainfluenza Type 1 (PCR) (test code = 218407989) NOT DETECTED NOT DETECT [facility]kinRespiratory virus weesp5026-35-92 08:45:00* Test Item Value Reference Range Interpretation Comments Parainfluenza Type 2 (PCR) (test code = 939099207) NOT DETECTED NOT DETECT [facility]kinRespiratory virus aespa3826-38-23 08:45:00* Test Item Value Reference Range Interpretation Comments Parainfluenza Type 3 (PCR) (test code = 054031670) NOT DETECTED NOT DETECT [facility]kinFluoroscopic procedure less than one hour vxsbuoii1355-53-49 08:45:00* Test Item Value Reference Range Interpretation Comments Parainfluenza Type 4 (PCR) (test code = Parainfluenza Type 4 (PCR)) NOT DETECTED NOT DETECT [facility]kinRespiratory virus mfjtx6162-53-49 08:45:00* Test Item Value Reference Range Interpretation Comments Rhinovirus (PCR) (test code = 040840449) NOT DETECTED NOT DETECT [facility]kinRespiratory virus neseu8992-75-97 08:45:00* Test Item Value Reference Range Interpretation Comments Human Metapneumovirus (PCR) (test code = 888673869) DETECTED NO T DETECT ABNORMALSt. [facility] LufkinRespiratory virus gathw7552-20-97 08:45:00* Test Item Value Reference Range Interpretation Comments Adenovirus (PCR) (test code = 422499849) NOT DETECTED NOT DETECT [facility]kinFluoroscopic procedure less than one hour frtrtwur0676-76-25 08:45:00* Test Item Value Reference Range Interpretation Comments Coronavirus Type 229E (PCR) (test code = Coronavirus T ype 229E (PCR)) NOT DETECTED NOT DETECT Test performed at [place] [address] 6073RESULTS HAVE BEEN CALLED TO THE PHYSICIANSt. [facility]ufkinFluoroscopic procedure less than one hour tzyhjhoo0996-05-41 08:45:00* Test Item Value Reference Range Interpretation Comments Coronavirus Type HKU1 (PCR) (test code = Coronavirus T ype HKU1 (PCR)) NOT DETECTED NOT DETECT [facility]kinFluoroscopic procedure less than one hour qojzkjna5436-61-74 08:45:00* Test Item Value Reference Range Interpretation Comments Coronavirus Type NL63 (PCR) (test code = Coronavirus T ype NL63 (PCR)) NOT DETECTED NOT DETECT [facility]kinFluoroscopic procedure less than one hour xdjufzqh2857-30-10 08:45:00* Test Item Value Reference Range Interpretation Comments Coronavirus Type OC43 (PCR) (test code = Coronavirus T ype OC43 (PCR)) NOT DETECTED NOT DETECT [facility] LufkinDifferential Total Cells Counted 2019-10-19 08:02:00* Test Item Value Reference Range Interpretation Comments Differential Total Cells Counted (test code = Differen tial Total Cells Counted) 100 [facility] LufkinNeutrophils % (Manual)2019-10-19 08:02:00 * Test Item Value Reference Range Interpretation Comments Neutrophils % (Manual) (test code = 46092-2) 83 40-[address] [facility] LufkinLymphocytes % (Manual)2019-10-19 08:02:00 * Test Item Value Reference Range Interpretation Comments Lymphocytes % (Manual) (test code = 737-7) 6 19-[address] [facility] LufkinMonocytes % (Manual)2019-10-19 08:02:00* Test Item Value Reference Range Interpretation Comments Monocytes % (Manual) (test code = 744-3) 6 3.4-9.0 [facility]kinEosinophils % (Manual)2019-10-19 08:02:00 * Test Item Value Reference Range Interpretation Comments Eosinophils % (Manual) (test code = 714-6) 3 0-7 [facility]kinBasophils % (Manual)2019-10-19 08:02:00* Test Item Value Reference Range Interpretation Comments Basophils % (Manual) (test code = 16724-0) 1 0-1.5 [facility]ufkinMyelocytes %2019-10-19 08:02:00* Test Item Value Reference Range Interpretation Comments Myelocytes % (test code = 749-2) 1 0-[address] [facility] LufkinPlatelet Hfnmyzwa6698-25-21 08:02:00* Test Item Value Reference Range Interpretation Comments Platelet Estimate (test code = 43413-7) MODERATELY DECREASED [facility] LufkinAnisocytosis2020-03-21 08:02:00* Test Item Value Reference Range Interpretation Comments Anisocytosis (test code = 702-1) MODE [facility] LufkinMacrocytosis2020-03-21 08:02:00* Test Item Value Reference Range Interpretation Comments Macrocytosis (test code = 738-5) SLIGHT [facility] LufkinRed Cell Morphology Qfukhbr2914-08-31 08:02:00* Test Item Value Reference Range Interpretation Comments Red Cell Morphology Comment (test code = 6742-1) ABNORMAL [facility] LufkinProthrombin Qdcv7425-41-63 06:23:00* Test Item Value Reference Range Interpretation Comments Prothrombin Time (test code = 5902-2) 13.8 11.9-14.5 [facility] LufkinProthromb Time International Ratio 2019-10-19 06:23:00* Test Item Value Reference Range Interpretation Comments Prothromb Time International Ratio (test code = 6301-6) 1.00 Oral Anticoagulant Therapy INR Values:1. Low Intensity Therapy 1.5 - 2.02 . Moderate Intensity Therapy 2.0 - 3.03. High Intensity Therapy(1) 2.5 - 3. 54. High Intensity Therapy(2) 3.0 - 4.05. Panic Value INR > 5.0 [facility] LufkinCHES SINGLE (PORTABLE)2019-10-19 06:04:00 [facility] [address] [place] [address] Patient Name: VIOLETTE LAMB MR #: [id number] : 1965 Age/Sex: 54/M Req #: [id number] Adm Physician: PAWEL SALVADOR MD Ordered by: PAWEL SALVADOR MD Report #: [id number] Location: MED/SURG Room/Bed: [facility] Procedure: [id number] -[id number] DX/CHEST SINGLE (PORTABLE) Exam [...] MD Fluoroscopic procedure less than one hour uiblzdcm8110-64-72 05:30:00* Test Item Value Reference Range Interpretation Comments Differential Total Cells Counted (test code = Differherbert tial Total Cells Counted) 100 [facility] blood neutrophils/100 leukocytes 2019-10-19 05:30:00* Test Item Value Reference Range Interpretation Comments Neutrophils % (Manual) (test code = 38265-3) 83 40-74 [facility] blood lymphocytes/100 leukocytes 2019-10-19 05:30:00* Test Item Value Reference Range Interpretation Comments Lymphocytes % (Manual) (test code = 737-7) 6 19-48 [facility] blood monocytes/100 leukocytes 2019-10-19 05:30:00* Test Item Value Reference Range Interpretation Comments Monocytes % (Manual) (test code = 744-3) 6 3.4-9.0 [facility] blood eosinophil count as percentage of total usqirblyem4051-23-85 05:30:00* Test Item Value Reference Range Interpretation Comments Eosinophils % (Manual) (test code = 714-6) 3 0-7 [facility] basophil vfrlrkpdio0839-56-18 05:30:00* Test Item Value Reference Range Interpretation Comments Basophils % (Manual) (test code = 75679-7) 1 0-1.5 [facility] blood myelocytes/100 leukocytes 2019-10-19 05:30:00* Test Item Value Reference Range Interpretation Comments Myelocytes % (test code = 749-2) 1 0-0 [facility] platelets count by estimate (number/volume)2019-10-19 05:30:00* Test Item Value Reference Range Interpretation Comments Platelet Estimate (test code = 98231-7) MODERATELY DECREASED [facility]ufkinBlood anisocytosis detection by light ffqxpvukwa7300-52-04 05:30:00* Test Item Value Reference Range Interpretation Comments Anisocytosis (test code = 702-1) MODE [facility]kinBlm[facility] macrocytes detection by light eheuwziknb8083-06-53 05:30:00* Test Item Value Reference Range Interpretation Comments Macrocytosis (test code = 738-5) SLIGHT [facility] LufkinRBC jhwsruqxhr3944-36-68 05:30:00* Test Item Value Reference Range Interpretation Comments Red Cell Morphology Comment (test code = 6742-1) ABNORMAL [facility]ufkinFluoroscopic procedure less than one hour fqoirkkj5037-25-98 05:30:00* Test Item Value Reference Range Interpretation Comments Differential Total Cells Counted (test code = Differherbert tial Total Cells Counted) 100 [facility] blood neutrophils/100 leukocytes 2019-10-19 05:30:00* Test Item Value Reference Range Interpretation Comments Neutrophils % (Manual) (test code = 95089-2) 83 40-74 [facility] blood lymphocytes/100 leukocytes 2019-10-19 05:30:00* Test Item Value Reference Range Interpretation Comments Lymphocytes % (Manual) (test code = 737-7) 6 19-48 [facility] blood monocytes/100 leukocytes 2019-10-19 05:30:00* Test Item Value Reference Range Interpretation Comments Monocytes % (Manual) (test code = 744-3) 6 3.4-9.0 [facility] blood eosinophil count as percentage of total ookwmhyofn2238-96-13 05:30:00* Test Item Value Reference Range Interpretation Comments Eosinophils % (Manual) (test code = 714-6) 3 0-7 [facility] basophil lrffqfuzhb6807-13-05 05:30:00* Test Item Value Reference Range Interpretation Comments Basophils % (Manual) (test code = 11550-3) 1 0-1.5 [facility] blood myelocytes/100 leukocytes 2019-10-19 05:30:00* Test Item Value Reference Range Interpretation Comments Myelocytes % (test code = 749-2) 1 0-0 [facility] platelets count by estimate (number/volume)2019-10-19 05:30:00* Test Item Value Reference Range Interpretation Comments Platelet Estimate (test code = 81060-2) MODERATELY DECREASED [facility] anisocytosis detection by light dpuklylipv8660-75-30 05:30:00* Test Item Value Reference Range Interpretation Comments Anisocytosis (test code = 702-1) MODE [facility] macrocytes detection by light xelmrchiwp4617-30-72 05:30:00* Test Item Value Reference Range Interpretation Comments Macrocytosis (test code = 738-5) SLIGHT [facility] LufkinRB xnuejvnlnl9726-91-72 05:30:00* Test Item Value Reference Range Interpretation Comments Red Cell Morphology Comment (test code = 6742-1) ABNORMAL [facility]ufkinFluoroscopic procedure less than one hour gctrzwda5405-26-40 05:30:00* Test Item Value Reference Range Interpretation Comments Differential Total Cells Counted (test code = Differherbert tial Total Cells Counted) 100 [facility] blood neutrophils/100 leukocytes 2019-10-19 05:30:00* Test Item Value Reference Range Interpretation Comments Neutrophils % (Manual) (test code = 61871-0) 83 40-74 [facility] blood lymphocytes/100 leukocytes 2019-10-19 05:30:00* Test Item Value Reference Range Interpretation Comments Lymphocytes % (Manual) (test code = 737-7) 6 19-48 [facility] blood monocytes/100 leukocytes 2019-10-19 05:30:00* Test Item Value Reference Range Interpretation Comments Monocytes % (Manual) (test code = 744-3) 6 3.4-9.0 [facility] blood eosinophil count as percentage of total ggddvrfxkp1988-83-59 05:30:00* Test Item Value Reference Range Interpretation Comments Eosinophils % (Manual) (test code = 714-6) 3 0-7 [facility] basophil wnnlepuirr6474-66-08 05:30:00* Test Item Value Reference Range Interpretation Comments Basophils % (Manual) (test code = 72639-3) 1 0-1.5 [facility] blood myelocytes/100 leukocytes 2019-10-19 05:30:00* Test Item Value Reference Range Interpretation Comments Myelocytes % (test code = 749-2) 1 0-0 [facility] platelets count by estimate (number/volume)2019-10-19 05:30:00* Test Item Value Reference Range Interpretation Comments Platelet Estimate (test code = 63057-5) MODERATELY DECREASED [facility] anisocytosis detection by light nwurdytcnj6165-48-77 05:30:00* Test Item Value Reference Range Interpretation Comments Anisocytosis (test code = 702-1) MODE [facility] macrocytes detection by light ljuvafpzgx0425-96-28 05:30:00* Test Item Value Reference Range Interpretation Comments Macrocytosis (test code = 738-5) SLIGHT [facility] LufkinRBC lqzctjlmvx3480-00-75 05:30:00* Test Item Value Reference Range Interpretation Comments Red Cell Morphology Comment (test code = 6742-1) ABNORMAL [facility]ufkinFluoroscopic procedure less than one hour pwklodjw9936-18-72 05:30:00* Test Item Value Reference Range Interpretation Comments Differential Total Cells Counted (test code = Differen tial Total Cells Counted) 100 [facility] blood neutrophils/100 leukocytes 2019-10-19 05:30:00* Test Item Value Reference Range Interpretation Comments Neutrophils % (Manual) (test code = 47832-6) 83 40-74 [facility] blood lymphocytes/100 leukocytes 2019-10-19 05:30:00* Test Item Value Reference Range Interpretation Comments Lymphocytes % (Manual) (test code = 737-7) 6 19-48 [facility] blood monocytes/100 leukocytes 2019-10-19 05:30:00* Test Item Value Reference Range Interpretation Comments Monocytes % (Manual) (test code = 744-3) 6 3.4-9.[address] [facility]Man[facility] blood eosinophil count as percentage of total cktradluoi2665-72-83 05:30:00* Test Item Value Reference Range Interpretation Comments Eosinophils % (Manual) (test code = 714-6) 3 0-7 [facility]ufkinManual basophil pcneitjgii9533-84-70 05:30:00* Test Item Value Reference Range Interpretation Comments Basophils % (Manual) (test code = 57472-4) 1 0-1.5 [facility] blood myelocytes/100 leukocytes 2019-10-19 05:30:00* Test Item Value Reference Range Interpretation Comments Myelocytes % (test code = 749-2) 1 0-0 [facility] platelets count by estimate (number/volume)2019-10-19 05:30:00* Test Item Value Reference Range Interpretation Comments Platelet Estimate (test code = 73607-6) MODERATELY DECREASED [facility] anisocytosis detection by light ybazetvjxk2623-93-00 05:30:00* Test Item Value Reference Range Interpretation Comments Anisocytosis (test code = 702-1) MODE [facility] macrocytes detection by light rawjqqetwn5250-12-51 05:30:00* Test Item Value Reference Range Interpretation Comments Macrocytosis (test code = 738-5) SLIGHT [facility] LufkinRBC oyszbqktgg8484-23-15 05:30:00* Test Item Value Reference Range Interpretation Comments Red Cell Morphology Comment (test code = 6742-1) ABNORMAL [facility] LufkinProthrombin time (PT) in platelet poor plasma by coagulation ixcem8576-82-23 05:25:00* Test Item Value Reference Range Interpretation Comments Prothrombin Time (test code = 5902-2) 13.8 11.9-14.5 [facility]kinINR in Platelet poor plasma by Coagulation buxxv0583-70-89 05:25:00* Test Item Value Reference Range Interpretation Comments Prothromb Time International Ratio (test code = 6301-6) 1.00 Oral Anticoagulant Therapy INR Values:1. Low Intensity Therapy 1.5 - 2.02 . Moderate Intensity Therapy 2.0 - 3.03. High Intensity Therapy(1) 2.5 - 3. 54. High Intensity Therapy(2) 3.0 - 4.05. Panic Value INR > 5.0 [facility]kinProthrombin time (PT) in platelet poor plasma by coagulation ukhyj2494-80-32 05:25:00* Test Item Value Reference Range Interpretation Comments Prothrombin Time (test code = 5902-2) 13.8 11.9-14.5 [facility]kinINR in Platelet poor plasma by Coagulation aidvq0439-56-80 05:25:00* Test Item Value Reference Range Interpretation Comments Prothromb Time International Ratio (test code = 6301-6) 1.00 Oral Anticoagulant Therapy INR Values:1. Low Intensity Therapy 1.5 - 2.02 . Moderate Intensity Therapy 2.0 - 3.03. High Intensity Therapy(1) 2.5 - 3. 54. High Intensity Therapy(2) 3.0 - 4.05. Panic Value INR > 5.0 [facility]ufkinIndirect Jqbydyesl6685-35-37 03:39:00* Test Item Value Reference Range Interpretation Comments Indirect Bilirubin (test code = 1971-1) 2.9 0.3-1.[address] [facility]kinFerritin2020-03-20 23:10:00* Test Item Value Reference Range Interpretation Comments Ferritin (test code = 2276-4) > 2000.00 21.81-274.[address] [facility]kinVitamin B12 Tokld0055-26-43 23:09:00* Test Item Value Reference Range Interpretation Comments Vitamin B12 Level (test code = 40688-9) 401 213-816 [facility]kinFolate2020-03-20 23:09:00* Test Item Value Reference Range Interpretation Comments Folate (test code = 2284-8) 9.5 7.0-15.4 [facility]ufkinPercent Reticulocyte Wqmar2299-43-93 22:26:00* Test Item Value Reference Range Interpretation Comments Percent Reticulocyte Count (test code = 60716-6) 5.5 0.8-[address] [facility]ufkinIron Auoqq8208-90-43 22:25:00* Test Item Value Reference Range Interpretation Comments Iron Level (test code = 2498-4) 47 65-[address] [facility] LufkinTotal Iron Binding Egrhioiv0004-62-71 22:25:00* Test Item Value Reference Range Interpretation Comments Total Iron Binding Capacity (test code = 2500-7) 223 261-[address] [facility] LufkinPercent Iron Qagflukkyx6683-85-10 22:25:00* Test Item Value Reference Range Interpretation Comments Percent Iron Saturation (test code = 2502-3) 21 15-50 [facility]kinTransferrin2020-03-20 22:25:00* Test Item Value Reference Range Interpretation Comments Transferrin (test code = 3034-6) 159 174-[address] [facility] LufkinQualitative serum or plasma hepatitis B virus e antibody by enzyme ptvmnpaoxyn4924-43-00 21:30:00* Test Item Value Reference Range Interpretation Comments Hepatitis Be Antibody (test code = 83743-4) Negative Negative Performed at: - [employer] [id number] Ophthalmic Medical Technologist: Dasha Lr MD, Phone: [phone] Health Heart & Vascular Hospital Arlingtonerum or plasma alpha 1 antitrypsin measurement (mass/volume) 2019-10-18 21:30:00* Test Item Value Reference Range Interpretation Comments Neepp-2-Uopttyvaqpy (test code = 1825-9) 171 101-187 Performed at: DA - [facility] [address] [id number] 4Lab Director: RACHELLE Singh MD, Phone: [phone] Health Heart & Vascular Hospital Arlingtonerum or plasma ceruloplasmin measurement (mass/volume)2019-10-18 21:30:00* Test Item Value Reference Range Interpretation Comments Ceruloplasmin (test code = 2064-4) 41.0 16.0-31.0 [facility] Arlingtonerum or plasma hepatitis B virus core antibody detection by fqyhxediuol8327-61-66 21:30:00* Test Item Value Reference Range Interpretation Comments Hepatitis B Core Total Antibody (test code = 73084-0) Negative Negative [facility] Arlingtonerum or plasma hepatitis A virus IgM antibody detection by vhdjzzootsz7684-80-17 21:30:00* Test Item Value Reference Range Interpretation Comments Hepatitis A IgM Antibody (test code = 94072-8) Negative [facility] Arlingtonerum or plasma hepatitis B virus surface antigen detection by ikvseuouahl2254-73-70 21:30:00* Test Item Value Reference Range Interpretation Comments Hepatitis B Surface Antigen (test code = 5196-1) Negative [facility] Arlingtonerum or plasma hepatitis B virus core IgM antibody detection by efvfmavqesg6866-07-26 21:30:00* Test Item Value Reference Range Interpretation Comments Hepatitis B Core IgM Antibody (test code = 08775-5) Negative [facility] Arlingtonerum hepatitis C virus antibody gfyjxovew2390-53-43 21:30:00* Test Item Value Reference Range Interpretation Comments Hepatitis C Antibody (test code = 03616-3) <0.1 Reference Range: 0.0 - 0.9 s/co ratioNegative: < 0.8Indeterminate: 0.8 - 0.9Positive: > 0.9The CDC recommends that a positive HCV antibody resultbe followed up with a HCV Nucleic Acid Amplificationtest (116939).Testing performed by:[employer] [address] [phone]: Roe Contreras [facility] Hospitalerum mitochondria M2 IgG antibody assay (units/volume)2019-10-18 21:30:00* Test Item Value Reference Range Interpretation Comments Anti-Mitochondrial Antibody (test code = 70969-3) <20.0 0.0- 20.0 Negative 0.0 - 20.0 Equivocal 20.1 - 24.9 Positive > 24.9Mitochondrial (M2) Antibodies are found in 90-96% ofpatients with primary bi liary cirrhosis.Performed at: - [facility] [id number] Director: Dasha Lr MD, Phone: [phone] Health Heart & Vascular Hospital Arlingtonerum nuclear antibody titer by fdiaqtuzlxodnirixa9827-85-08 21:30:00* Test Item Value Reference Range Interpretation Comments Anti-Nuclear Antibody Screen (test code = 5048-4) Negative [facility] Arlingtonerum or plasma alkaline phosphatase measurement (enzymatic activity/volume)2019-10-18 21:30:00* Test Item Value Reference Range Interpretation Comments Alkaline Phosphatase (test code = 6768-6) 865 39-117 [facility] Arlingtonerum or plasma intestinal alkaline phosphatase/total alkaline phosphatase nigib5913-75-77 21:30:00* Test Item Value Reference Range Interpretation Comments Alkaline Phosphatase Iso-Intestine (test code = 27321-5) 0 0-18 Performed at: [facility] [employer] [id number] Director: Roe Contreras MD, Phone: [phone] at: [address] [id number] Director: Dasha Lr MD, Ph one: [phone] Health Heart & Vascular Hospital Arlingtonerum or plasma bone alkaline phosphatase/alkaline phosphatase.uvjsl4309-21-00 21:30:00* Test Item Value Reference Range Interpretation Comments Alkaline Phosphatase Iso-Bone (test code = 03437-7) 21 12 -68 [facility] Arlingtonerum or plasma liver alkaline phosphatase/total alkaline phosphatase ykfxk1427-65-56 21:30:00* Test Item Value Reference Range Interpretation Comments Alkaline Phosphatase Iso-Liver (test code = 82656-2) 79 1 3-88 [facility] LufkinQualitative serum or plasma hepatitis B virus e antibody by enzyme fexkovixgff0083-76-15 21:30:00* Test Item Value Reference Range Interpretation Comments Hepatitis Be Antibody (test code = 88483-8) Negative Negative Performed at: [facility] [employer] [id number] Ophthalmic Medical Technologist: Dasha Lr MD, Phone: [phone] Health Heart & Vascular Hospital Arlingtonerum or plasma alpha 1 antitrypsin measurement (mass/volume) 2019-10-18 21:30:00* Test Item Value Reference Range Interpretation Comments Cokow-5-Zvcdacxxjms (test code = 1825-9) 171 101-187 Performed at: [facility] [facility] [address], [place], [place] [id number] 4Lab Director: RACHELLE Singh MD, Phone: [phone] Health Heart & Vascular Hospital Arlingtonerum or plasma ceruloplasmin measurement (mass/volume)2019-10-18 21:30:00* Test Item Value Reference Range Interpretation Comments Ceruloplasmin (test code = 2064-4) 41.0 16.0-31.0 [facility] Arlingtonerum or plasma hepatitis B virus core antibody detection by bzpgzjzximf9504-72-28 21:30:00* Test Item Value Reference Range Interpretation Comments Hepatitis B Core Total Antibody (test code = 55863-9) Negative Negative [facility] Arlingtonerum or plasma hepatitis A virus IgM antibody detection by rcxqwenhwcp2660-97-32 21:30:00* Test Item Value Reference Range Interpretation Comments Hepatitis A IgM Antibody (test code = 70663-5) Negative [facility] Arlingtonerum or plasma hepatitis B virus surface antigen detection by pqvflzjtrsv4261-50-90 21:30:00* Test Item Value Reference Range Interpretation Comments Hepatitis B Surface Antigen (test code = 5196-1) Negative [facility] Arlingtonerum or plasma hepatitis B virus core IgM antibody detection by czcgcylvwos5710-66-57 21:30:00* Test Item Value Reference Range Interpretation Comments Hepatitis B Core IgM Antibody (test code = 96880-1) Negative [facility] Arlingtonerum hepatitis C virus antibody xhyfyofhc2122-96-83 21:30:00* Test Item Value Reference Range Interpretation Comments Hepatitis C Antibody (test code = 88305-7) <0.1 Reference Range: 0.0 - 0.9 s/co ratioNegative: < 0.8Indeterminate: 0.8 - 0.9Positive: > 0.9The CDC recommends that a positive HCV antibody resultbe followed up with a HCV Nucleic Acid Amplificationtest (902590).Testing performed by:[facility] [phone]: Roe Contreras [facility] Hospitalerum mitochondria M2 IgG antibody assay (units/volume)2019-10-18 21:30:00* Test Item Value Reference Range Interpretation Comments Anti-Mitochondrial Antibody (test code = 74945-1) <20.0 0.0- 20.0 Negative 0.0 - 20.0 Equivocal 20.1 - 24.9 Positive > 24.9Mitochondrial (M2) Antibodies are found in 90-96% ofpatients with primary bi liary cirrhosis.Performed at: [employer] [id number] Director: Dasha Lr MD, Phone: [phone] Health Heart & Vascular Hospital Arlingtonerum nuclear antibody titer by mwftztsqctvpltsttx8746-48-95 21:30:00* Test Item Value Reference Range Interpretation Comments Anti-Nuclear Antibody Screen (test code = 5048-4) Negative [facility] Arlingtonerum or plasma alkaline phosphatase measurement (enzymatic activity/volume)2019-10-18 21:30:00* Test Item Value Reference Range Interpretation Comments Alkaline Phosphatase (test code = 6768-6) 865 39-117 [facility] Arlingtonerum or plasma intestinal alkaline phosphatase/total alkaline phosphatase zyqgd1754-24-05 21:30:00* Test Item Value Reference Range Interpretation Comments Alkaline Phosphatase Iso-Intestine (test code = 41896-4) 0 0-18 Performed at: [facility] [employer] [id number] Director: Roe Contreras MD, Phone: [phone] at: [facility] [employer] [id number] Director: Dasha Lr MD, Ph one: [phone] Health Heart & Vascular Hospital Arlingtonerum or plasma bone alkaline phosphatase/alkaline phosphatase.uucwq2430-50-40 21:30:00* Test Item Value Reference Range Interpretation Comments Alkaline Phosphatase Iso-Bone (test code = 59464-4) 21 12 -68 [facility] Arlingtonerum or plasma liver alkaline phosphatase/total alkaline phosphatase uccll3468-29-53 21:30:00* Test Item Value Reference Range Interpretation Comments Alkaline Phosphatase Iso-Liver (test code = 18888-1) 79 1 3-88 [facility]kinQualitative serum or plasma hepatitis B virus e antibody by enzyme lwidpojlaem1958-40-82 21:30:00* Test Item Value Reference Range Interpretation Comments Hepatitis Be Antibody (test code = 74526-1) Negative Negative Performed at: [facility] [id number] Ophthalmic Medical Technologist: Dasha Lr MD, Phone: [phone] Health Heart & Vascular Hospital Arlingtonerum or plasma alpha 1 antitrypsin measurement (mass/volume) 2019-10-18 21:30:00* Test Item Value Reference Range Interpretation Comments Fqcgm-2-Tgqyywksxkh (test code = 1825-9) 171 101-187 Performed at: [address], [place], [place] [id number] 4Lab Director: RACHELLE Singh MD, Phone: [phone] Health Heart & Vascular Hospital Arlingtonerum or plasma ceruloplasmin measurement (mass/volume)2019-10-18 21:30:00* Test Item Value Reference Range Interpretation Comments Ceruloplasmin (test code = 2064-4) 41.0 16.0-31.0 [facility] Arlingtonerum or plasma hepatitis B virus core antibody detection by mknjrdrzxdr7268-81-45 21:30:00* Test Item Value Reference Range Interpretation Comments Hepatitis B Core Total Antibody (test code = 34034-8) Negative Negative [facility] Arlingtonerum or plasma hepatitis A virus IgM antibody detection by thmnscjoyic5363-56-29 21:30:00* Test Item Value Reference Range Interpretation Comments Hepatitis A IgM Antibody (test code = 02544-5) Negative [facility] Arlingtonerum or plasma hepatitis B virus surface antigen detection by blikxplzskm5160-00-43 21:30:00* Test Item Value Reference Range Interpretation Comments Hepatitis B Surface Antigen (test code = 5196-1) Negative [facility] Arlingtonerum or plasma hepatitis B virus core IgM antibody detection by hlxsgyppspj5035-81-38 21:30:00* Test Item Value Reference Range Interpretation Comments Hepatitis B Core IgM Antibody (test code = 60103-1) Negative [facility] Arlingtonerum hepatitis C virus antibody ezhnyyolb2145-51-44 21:30:00* Test Item Value Reference Range Interpretation Comments Hepatitis C Antibody (test code = 55601-6) <0.1 Reference Range: 0.0 - 0.9 s/co ratioNegative: < 0.8Indeterminate: 0.8 - 0.9Positive: > 0.9The CDC recommends that a positive HCV antibody resultbe followed up with a HCV Nucleic Acid Amplificationtest (716308).Testing performed by:[employer] [address] [phone]: Roe Contreras [facility] Hospitalerum mitochondria M2 IgG antibody assay (units/volume)2019-10-18 21:30:00* Test Item Value Reference Range Interpretation Comments Anti-Mitochondrial Antibody (test code = 07633-6) <20.0 0.0- 20.0 Negative 0.0 - 20.0 Equivocal 20.1 - 24.9 Positive > 24.9Mitochondrial (M2) Antibodies are found in 90-96% ofpatients with primary bi liary cirrhosis.Performed at: [address] [id number] Director: Dasha Lr MD, Phone: [phone] Health Heart & Vascular Hospital Arlingtonerum nuclear antibody titer by vicpjdvmmivqjfmeds1876-19-04 21:30:00* Test Item Value Reference Range Interpretation Comments Anti-Nuclear Antibody Screen (test code = 5048-4) Negative [facility] Arlingtonerum or plasma alkaline phosphatase measurement (enzymatic activity/volume)2019-10-18 21:30:00* Test Item Value Reference Range Interpretation Comments Alkaline Phosphatase (test code = 6768-6) 865 39-117 [facility] Arlingtonerum or plasma intestinal alkaline phosphatase/total alkaline phosphatase nyouc3718-71-90 21:30:00* Test Item Value Reference Range Interpretation Comments Alkaline Phosphatase Iso-Intestine (test code = 14804-9) 0 0-18 Performed at: [facility] [employer] [id number] Director: Roe Contreras MD, Phone: [phone] at: [facility] [address] [place] [id number] Director: Dasha Lr MD, Ph one: [phone] Health Heart & Vascular Hospital Arlingtonerum or plasma bone alkaline phosphatase/alkaline phosphatase.bnywx8360-74-15 21:30:00* Test Item Value Reference Range Interpretation Comments Alkaline Phosphatase Iso-Bone (test code = 13413-6) 21 12 -68 [facility] Arlingtonerum or plasma liver alkaline phosphatase/total alkaline phosphatase nvewe7444-25-18 21:30:00* Test Item Value Reference Range Interpretation Comments Alkaline Phosphatase Iso-Liver (test code = 70878-7) 79 1 3-88 [facility]kinQualitative serum or plasma hepatitis B virus e antibody by enzyme tvhakvpukgr1445-48-07 21:30:00* Test Item Value Reference Range Interpretation Comments Hepatitis Be Antibody (test code = 57072-2) Negative Negative Performed at: [employer] [id number] Ophthalmic Medical Technologist: Dasha Lr MD, Phone: [phone] Health Heart & Vascular Hospital Arlingtonerum or plasma alpha 1 antitrypsin measurement (mass/volume) 2019-10-18 21:30:00* Test Item Value Reference Range Interpretation Comments Vblby-6-Nognobadmrk (test code = 1825-9) 171 101-187 Performed at: [facility] CapitalOlive [facility] CenterQuojjo7[address] [id number] 4[facility] Director: RACHELLE Singh MD, Phone: [phone] Health Heart & Vascular Hospital Arlingtonerum or plasma ceruloplasmin measurement (mass/volume)2019-10-18 21:30:00* Test Item Value Reference Range Interpretation Comments Ceruloplasmin (test code = 2064-4) 41.0 16.0-31.0 [facility] Arlingtonerum or plasma hepatitis B virus core antibody detection by ovubrljtjvt1379-77-56 21:30:00* Test Item Value Reference Range Interpretation Comments Hepatitis B Core Total Antibody (test code = 25927-3) Negative Negative [facility] Arlingtonerum or plasma hepatitis A virus IgM antibody detection by alvemipwurn3221-88-54 21:30:00* Test Item Value Reference Range Interpretation Comments Hepatitis A IgM Antibody (test code = 43447-0) Negative [facility] Arlingtonerum or plasma hepatitis B virus surface antigen detection by xqshzerstbu6105-59-85 21:30:00* Test Item Value Reference Range Interpretation Comments Hepatitis B Surface Antigen (test code = 5196-1) Negative [facility] Arlingtonerum or plasma hepatitis B virus core IgM antibody detection by jchljdwpfdk4967-16-21 21:30:00* Test Item Value Reference Range Interpretation Comments Hepatitis B Core IgM Antibody (test code = 29092-3) Negative [facility] Arlingtonerum hepatitis C virus antibody czfygpejb0300-49-46 21:30:00* Test Item Value Reference Range Interpretation Comments Hepatitis C Antibody (test code = 72585-5) <0.1 Reference Range: 0.0 - 0.9 s/co ratioNegative: < 0.8Indeterminate: 0.8 - 0.9Positive: > 0.9The CDC recommends that a positive HCV antibody resultbe followed up with a HCV Nucleic Acid Amplificationtest (685941).Testing performed by:[employer] [address] [phone]: Roe Contreras [facility] Hospitalerum mitochondria M2 IgG antibody assay (units/volume)2019-10-18 21:30:00* Test Item Value Reference Range Interpretation Comments Anti-Mitochondrial Antibody (test code = 97913-4) <20.0 0.0- 20.0 Negative 0.0 - 20.0 Equivocal 20.1 - 24.9 Positive > 24.9Mitochondrial (M2) Antibodies are found in 90-96% ofpatients with primary bi liary cirrhosis.Performed at: [facility] [employer] [id number] Director: Dasha Lr MD, Phone: [phone] Health Heart & Vascular Hospital Arlingtonerum nuclear antibody titer by rjwfcgdjvwirwobwhg9132-11-93 21:30:00* Test Item Value Reference Range Interpretation Comments Anti-Nuclear Antibody Screen (test code = 5048-4) Negative [facility]erum or plasma alkaline phosphatase measurement (enzymatic activity/volume)2019-10-18 21:30:00* Test Item Value Reference Range Interpretation Comments Alkaline Phosphatase (test code = 6768-6) 865 39-117 [facility] Arlingtonerum or plasma intestinal alkaline phosphatase/total alkaline phosphatase lkiwy6936-28-95 21:30:00* Test Item Value Reference Range Interpretation Comments Alkaline Phosphatase Iso-Intestine (test code = 05250-4) 0 0-18 Performed at: [facility] [address] [place], [place] [id number] Director: Roe Contreras MD, Phone: [phone] at: - [facility] [address] [place], [place] [id number] Director: Dasha Lr MD, Ph one: [phone] [facility] Hospitalerum or plasma bone alkaline phosphatase/alkaline phosphatase.ablxo3562-18-22 21:30:00* Test Item Value Reference Range Interpretation Comments Alkaline Phosphatase Iso-Bone (test code = 29591-5) 21 [facility]erum or plasma liver alkaline phosphatase/total alkaline phosphatase trucu3304-19-52 21:30:00* Test Item Value Reference Range Interpretation Comments Alkaline Phosphatase Iso-Liver (test code = 41400-6) [address] [facility] LufkinCHEST SINGLE (PORTABLE)2019-10-18 21:01:00 [facility] [address] [place] [address] Patient Name: VIOLETTE LAMB MR #: [id number] : 1965 Age/Sex: 54/M Req #: [id number] Adm Physician: PAWEL SALVADOR MD Ordered by: PAWEL SALVADOR MD Report #: [id number] Location: MED/SURG Room/Bed: [facility] Procedure: [id number] DX/CHEST SINGLE (PORTABLE) Exam [...] 10/18/192102 COPY TO: PAWEL SALVADOR MD Creatine Ehzlzd7597-24-85 14:56:00* Test Item Value Reference Range Interpretation Comments Creatine Kinase (test code = 2157-6) 38 30-200 [facility]ufkinCreatine Kinase YY7726-05-71 14:56:00* Test Item Value Reference Range Interpretation Comments Creatine Kinase MB (test code = 61613-0) 1.20 0-5.0 [facility] LufkinTroponin U3488-32-62 14:56:00* Test Item Value Reference Range Interpretation Comments Troponin I (test code = SDI4620) 0.059 0-0.300 [facility] LufkinActivated Partial Thromboplast Time 2019-10-18 13:15:00* Test Item Value Reference Range Interpretation Comments Activated Partial Thromboplast Time (test code = 77048-4) 30.1 23.8-35.5 [facility] LufkinAutomated reticulocyte count as percentage of total klllribhhwfq8537-57-13 12:40:00* Test Item Value Reference Range Interpretation Comments Percent Reticulocyte Count (test code = 57229-1) 5.5 0.8-[address] [facility] LufkinActivated partial thromboplastin time (aPTT) in platelet poor plasma by coagulation hlntv4988-56-40 12:40:00* Test Item Value Reference Range Interpretation Comments Activated Partial Thromboplast Time (test code = 82126-6) 30.1 23.8-35.5 [facility] Arlingtonerum or plasma iron measurement (mass/volume)2019-10-18 12:40:00* Test Item Value Reference Range Interpretation Comments Iron Level (test code = 2498-4) 47 65-175 [facility] Arlingtonerum or plasma iron binding capacity measurement (mass/volume)2019-10-18 12:40:00* Test Item Value Reference Range Interpretation Comments Total Iron Binding Capacity (test code = 2500-7) 223 261-4 78 [facility] Arlingtonerum or plasma iron saturation measurement (mass fraction)2019-10-18 12:40:00* Test Item Value Reference Range Interpretation Comments Percent Iron Saturation (test code = 2502-3) 21 15-50 [facility] Arlingtonerum or plasma transferrin measurement (mass/volume)2019-10-18 12:40:00* Test Item Value Reference Range Interpretation Comments Transferrin (test code = 3034-6) 159 174-364 [facility] Arlingtonerum or plasma ferritin measurement (mass/volume)2019-10-18 12:40:00* Test Item Value Reference Range Interpretation Comments Ferritin (test code = 2276-4) > 2000.00 21.81-274.66 [facility] Arlingtonerum or plasma indirect bilirubin measurement (mass/volume)2019-10-18 12:40:00* Test Item Value Reference Range Interpretation Comments Indirect Bilirubin (test code = 1971-1) 2.9 0.3-1.2 [facility] Arlingtonerum or plasma creatine kinase measurement (enzymatic activity/volume)2019-10-18 12:40:00* Test Item Value Reference Range Interpretation Comments Creatine Kinase (test code = 2157-6) 38 30-200 [facility] Arlingtonerum or plasma creatine kinase MB measurement (mass/volume)2019-10-18 12:40:00* Test Item Value Reference Range Interpretation Comments Creatine Kinase MB (test code = 36639-1) 1.20 0-5.0 [facility]ufkinTroponin I measurement by highly sensitive enzyme jkhddzowlib8220-59-09 12:40:00* Test Item Value Reference Range Interpretation Comments Troponin I (test code = 24898-0) 0.059 0-0.300 [facility] LufkinBlood cobalamin (vitamin B12) measurement (mass/volume)2019-10-18 12:40:00* Test Item Value Reference Range Interpretation Comments Vitamin B12 Level (test code = 81573-1) 401 213-816 [facility] Arlingtonerum or plasma folate measurement (mass/volume)2019-10-18 12:40:00* Test Item Value Reference Range Interpretation Comments Folate (test code = 2284-8) 9.5 7.0-15.4 [facility]ufkinAutomated reticulocyte count as percentage of total ngtknrxzjupv9726-55-87 12:40:00* Test Item Value Reference Range Interpretation Comments Percent Reticulocyte Count (test code = 23489-2) 5.5 0.8-[address] [facility]ufkinActivated partial thromboplastin time (aPTT) in platelet poor plasma by coagulation [id number] 12:40:00* Test Item Value Reference Range Interpretation Comments Activated Partial Thromboplast Time (test code = 60816-8) 30.1 23.8-35.5 [facility] iron measurement (mass/volume)2019-10-18 12:40:00* Test Item Value Reference Range Interpretation Comments Iron Level (test code = 2498-4) 47 65-175 [facility] iron binding capacity measurement (mass/volume)2019-10-18 12:40:00* Test Item Value Reference Range Interpretation Comments Total Iron Binding Capacity (test code = 2500-7) 223 261-4 78 [facility] iron saturation measurement (mass fraction)2019-10-18 12:40:00* Test Item Value Reference Range Interpretation Comments Percent Iron Saturation (test code = 2502-3) 21 15-50 [facility] plasma transferrin measurement (mass/volume)2019-10-18 12:40:00* Test Item Value Reference Range Interpretation Comments Transferrin (test code = 3034-6) 159 174-364 [facility] plasma ferritin measurement (mass/volume)2019-10-18 12:40:00* Test Item Value Reference Range Interpretation Comments Ferritin (test code = 2276-4) > 2000.00 21.81-274.66 [facility] plasma indirect bilirubin measurement (mass/volume)2019-10-18 12:40:00* Test Item Value Reference Range Interpretation Comments Indirect Bilirubin (test code = 1971-1) 2.9 0.3-1.2 [facility] plasma creatine kinase measurement (enzymatic activity/volume)2019-10-18 12:40:00* Test Item Value Reference Range Interpretation Comments Creatine Kinase (test code = 2157-6) 38 30-200 [facility] plasma creatine kinase MB measurement (mass/volume)2019-10-18 12:40:00* Test Item Value Reference Range Interpretation Comments Creatine Kinase MB (test code = 78617-1) 1.20 0-5.0 [facility]kinTroponin I measurement by highly sensitive enzyme [id number] 12:40:00* Test Item Value Reference Range Interpretation Comments Troponin I (test code = 42372-1) 0.059 0-0.300 [facility]kinBlood cobalamin (vitamin B12) measurement (mass/volume)2019-10-18 12:40:00* Test Item Value Reference Range Interpretation Comments Vitamin B12 Level (test code = 09470-1) 401 213-816 [facility] plasma folate measurement (mass/volume)2019-10-18 12:40:00* Test Item Value Reference Range Interpretation Comments Folate (test code = 2284-8) 9.5 7.0-15.4 [facility]kinAutomated reticulocyte count as percentage of total [id number] 12:40:00* Test Item Value Reference Range Interpretation Comments Percent Reticulocyte Count (test code = 53330-1) 5.5 0.8-2 .2 [facility] iron measurement (mass/volume)2019-10-18 12:40:00* Test Item Value Reference Range Interpretation Comments Iron Level (test code = 2498-4) 47 65-175 [facility] plasma iron binding capacity measurement (mass/volume)2019-10-18 12:40:00* Test Item Value Reference Range Interpretation Comments Total Iron Binding Capacity (test code = 2500-7) 223 261-4 78 [facility] iron saturation measurement (mass fraction)2019-10-18 12:40:00* Test Item Value Reference Range Interpretation Comments Percent Iron Saturation (test code = 2502-3) 21 15-50 [facility] plasma transferrin measurement (mass/volume)2019-10-18 12:40:00* Test Item Value Reference Range Interpretation Comments Transferrin (test code = 3034-6) 159 174-364 [facility] plasma ferritin measurement (mass/volume)2019-10-18 12:40:00* Test Item Value Reference Range Interpretation Comments Ferritin (test code = 2276-4) > 2000.00 21.81-274.66 [facility] plasma indirect bilirubin measurement (mass/volume)2019-10-18 12:40:00* Test Item Value Reference Range Interpretation Comments Indirect Bilirubin (test code = 1971-1) 2.9 0.3-1.2 [facility] plasma creatine kinase measurement (enzymatic activity/volume)2019-10-18 12:40:00* Test Item Value Reference Range Interpretation Comments Creatine Kinase (test code = 2157-6) 38 30-200 [facility] plasma creatine kinase MB measurement (mass/volume)2019-10-18 12:40:00* Test Item Value Reference Range Interpretation Comments Creatine Kinase MB (test code = 00511-0) 1.20 0-5.0 [facility]kinTroponin I measurement by highly sensitive enzyme [id number] 12:40:00* Test Item Value Reference Range Interpretation Comments Troponin I (test code = 12079-1) 0.059 0-0.300 [facility]kinBlood cobalamin (vitamin B12) measurement (mass/volume)2019-10-18 12:40:00* Test Item Value Reference Range Interpretation Comments Vitamin B12 Level (test code = 12490-6) 401 213816 [facility] plasma folate measurement (mass/volume)2019-10-18 12:40:00* Test Item Value Reference Range Interpretation Comments Folate (test code = 2284-8) 9.5 7.0-15.4 [facility]kinAutomated reticulocyte count as percentage of total [id number] 12:40:00* Test Item Value Reference Range Interpretation Comments Percent Reticulocyte Count (test code = 88514-4) 5.5 0.8-2 .2 [facility] iron measurement (mass/volume)2019-10-18 12:40:00* Test Item Value Reference Range Interpretation Comments Iron Level (test code = 2498-4) 47 65-175 [facility] plasma iron binding capacity measurement (mass/volume)2019-10-18 12:40:00* Test Item Value Reference Range Interpretation Comments Total Iron Binding Capacity (test code = 2500-7) 223 261-4 78 [facility] plasma iron saturation measurement (mass fraction)2019-10-18 12:40:00* Test Item Value Reference Range Interpretation Comments Percent Iron Saturation (test code = 2502-3) 21 15-50 [facility] plasma transferrin measurement (mass/volume)2019-10-18 12:40:00* Test Item Value Reference Range Interpretation Comments Transferrin (test code = 3034-6) 159 174-364 [facility] plasma ferritin measurement (mass/volume)2019-10-18 12:40:00* Test Item Value Reference Range Interpretation Comments Ferritin (test code = 2276-4) > 2000.00 21.81-274.66 [facility] plasma indirect bilirubin measurement (mass/volume)2019-10-18 12:40:00* Test Item Value Reference Range Interpretation Comments Indirect Bilirubin (test code = 1971-1) 2.9 0.3-1.2 [facility] plasma creatine kinase measurement (enzymatic activity/volume)2019-10-18 12:40:00* Test Item Value Reference Range Interpretation Comments Creatine Kinase (test code = 2157-6) 38 30-200 [facility] plasma creatine kinase MB measurement (mass/volume)2019-10-18 12:40:00* Test Item Value Reference Range Interpretation Comments Creatine Kinase MB (test code = 85119-5) 1.20 0-5.0 [facility]kinTroponin I measurement by highly sensitive enzyme zhmduxgnoth3559-12-30 12:40:00* Test Item Value Reference Range Interpretation Comments Troponin I (test code = 24467-3) 0.059 0-0.300 [facility]kinBlood cobalamin (vitamin B12) measurement (mass/volume)2019-10-18 12:40:00* Test Item Value Reference Range Interpretation Comments Vitamin B12 Level (test code = 44759-1) 401 213-816 [facility] plasma folate measurement (mass/volume)2019-10-18 12:40:00* Test Item Value Reference Range Interpretation Comments Folate (test code = 2284-8) 9.5 7.0-15.4 [facility]kinGLUBED2020-03-14 20:09:00* Test Item Value Reference Range Interpretation Comments GLUBED (test code = GLUBED) 118 mg/dL 74-106 H Performed by certified can bander operator at [facility] ANTINUCLEAR ANTIBODIES [id number] 18:07:00* Test Item Value Reference Range Interpretation Comments BRIDGETT SCREEN (test code = ANASCR) Negative Negative Performed At: [facility] [address] [id number] Kyle L MD Ph:[phone] REFAB [id number] 18:07:00* Test Item Value Reference Range Interpretation Comments AB MITOCHONDRIAL (test code = MITOCHAB) <20.0 Units 0.0-20.0 Negative 0.0 - 20.0 Equivocal 20.1 - 24.9 Positive >24.9Mitochondrial (M2) Antibodies are found in 90-96% ofpatients with primary biliary cirrhosis.Performed At: [facility] [address] [id number] Lou MD Ph:[phone] [id number] 11:29:00* Test Item Value Reference Range Interpretation Comments GLUBED (test code = GLUBED) 133 mg/dL 74-106 H Performed by certified can bander operator at [facility] [id number] 11:02:00* Test Item Value Reference Range Interpretation Comments GLUBED (test code = GLUBED) 146 mg/dL 74-106 H Performed by certified can bander operator at [facility] AB HIV 1 09:51:00* Test Item Value Reference Range Interpretation Comments AB HIV 1 2 (test code = BOT68OA) Nonreactive NonReactive It is recognized that currently available assays for thedetection of antibodies to HIV-1 and/or HIV-2 may notdetect all infected individuals. A negative test result doesnot exclude the possibility of exposure to or infection withHIV. HIV antibodies may be undetectable in some stages ofthe infection and in some clinical conditions. AB HEPATITIS B [id number] 07:12:00* Test Item Value Reference Range Interpretation Comments AB HEPATITIS B SURFACE (test code = HBSAB) Reactive () Non Reactive: Inconsistent with immunity, less than 10 mIU/mL Reactive: Consistent with immunity, greater than 9.9 mIU/mLPerformed At: [facility] [id number] Palencia MD Ph:[phone] HEPATITIS B CORE ANTIBODY,[id number] 07:12:00* Test Item Value Reference Range Interpretation Comments HEPATITIS B CORE ANTIBODY,TOT (test code = HBCAB) Negative Nega tive Performed At: [facility] [address] [id number] Palencia MD Ph:[phone] [id number] 05:31:00* Test Item Value Reference Range Interpretation Comments HEMOGLOBIN (test code = HGB) 8.0 gram/dL 13.0-17.5 L [id number] 20:08:00* Test Item Value Reference Range Interpretation Comments GLUBED (test code = GLUBED) 135 mg/dL 74-106 H Performed by certified can bander operator at [facility] [id number] 17:42:00* Test Item Value Reference Range Interpretation Comments GLUBED (test code = GLUBED) 237 mg/dL 74-106 H Performed by certified can bander operator at [facility] BASIC METABOLIC [id number] 13:54:00* Test Item Value Reference Range Interpretation [...] CA) 8.7 mg/dL 8.5-10.1 N BASIC METABOLIC [id number] 13:49:00* Test Item Value Reference Range Interpretation [...] code = CA) mg/dL 8.5-10.1 CBC W/AUTO [id number] 12:42:00* Test Item Value Reference Range Interpretation [...] = MDIFF) NO, ONLY SCAN NEEDED DIFFERENTIAL [id number] 12:42:00* Test Item Value Reference Range Interpretation Comments STAIN ACCEPTABILITY (test code = STN ACCEPTABLE) STAIN ACCEPTABLE POLYCHROMASIA (test code = POLC) 1+ ANISOCYTOSIS (test code = ANISO) 3+ MACROCYTOSIS (test code = MACR) 3+ PLATELET ESTIMATE (test code = PLTEST) SLIGHTLY DECREASED PLATELET MORPHOLOGY (test code = PLTMORPH) NORMAL [id number] 12:13:00* Test Item Value Reference Range Interpretation Comments GLUBED (test code = GLUBED) 142 mg/dL 74-106 H Performed by certified can bander operator at [facility] CBC W/AUTO [id number] 11:55:00* Test Item Value Reference Range Interpretation [...] = MDIFF) NO, ONLY SCAN NEEDED DIFFERENTIAL [id number] 11:55:00* Test Item Value Reference Range Interpretation Comments STAIN ACCEPTABILITY (test code = STN ACCEPTABLE) CABOT RINGS (test code = CAB) MORPHOLOGY COMMENT (test code = MOC) PLATELET ESTIMATE (test code = PLTEST) PLATELET MORPHOLOGY (test code = PLTMORPH) CBC W/AUTO [id number] 11:55:00* Test Item Value Reference Range Interpretation [...] = MDIFF) NO, ONLY SCAN NEEDED DIFFERENTIAL [id number] 11:55:00* Test Item Value Reference Range Interpretation Comments STAIN ACCEPTABILITY (test code = STN ACCEPTABLE) CABOT RINGS (test code = CAB) MORPHOLOGY COMMENT (test code = MOC) PLATELET ESTIMATE (test code = PLTEST) PLATELET MORPHOLOGY (test code = PLTMORPH) CBC W/AUTO [id number] 11:55:00* Test Item Value Reference Range Interpretation [...] = MDIFF) NO, ONLY SCAN NEEDED DIFFERENTIAL [id number] 11:55:00* Test Item Value Reference Range Interpretation Comments STAIN ACCEPTABILITY (test code = STN ACCEPTABLE) MORPHOLOGY COMMENT (test code = MOC) PLATELET ESTIMATE (test code = PLTEST) PLATELET MORPHOLOGY (test code = PLTMORPH) CBC W/AUTO [id number] 11:55:00* Test Item Value Reference Range Interpretation [...] = MDIFF) NO, ONLY SCAN NEEDED DIFFERENTIAL [id number] 11:55:00* Test Item Value Reference Range Interpretation Comments STAIN ACCEPTABILITY (test code = STN ACCEPTABLE) CABOT RINGS (test code = CAB) MORPHOLOGY COMMENT (test code = MOC) PLATELET ESTIMATE (test code = PLTEST) PLATELET MORPHOLOGY (test code = PLTMORPH) CBC W/AUTO [id number] 07:58:00* Test Item Value Reference Range Interpretation [...] = MDIFF) NO, ONLY SCAN NEEDED DIFFERENTIAL [id number] 07:58:00* Test Item Value Reference Range Interpretation Comments STAIN ACCEPTABILITY (test code = STN ACCEPTABLE) STAIN ACCEPTABLE POLYCHROMASIA (test code = POLC) 1+ ANISOCYTOSIS (test code = ANISO) 3+ MACROCYTOSIS (test code = MACR) 3+ PLATELET ESTIMATE (test code = PLTEST) SLIGHTLY DECREASED PLATELET MORPHOLOGY (test code = PLTMORPH) NORMAL CBC W/AUTO [id number] 07:44:00* Test Item Value Reference Range Interpretation [...] = MDIFF) NO, ONLY SCAN NEEDED DIFFERENTIAL [id number] 07:44:00* Test Item Value Reference Range Interpretation Comments STAIN ACCEPTABILITY (test code = STN ACCEPTABLE) CABOT RINGS (test code = CAB) MORPHOLOGY COMMENT (test code = MOC) PLATELET ESTIMATE (test code = PLTEST) PLATELET MORPHOLOGY (test code = PLTMORPH) CBC W/AUTO [id number] 07:44:00* Test Item Value Reference Range Interpretation [...] = MDIFF) NO, ONLY SCAN NEEDED DIFFERENTIAL [id number] 07:44:00* Test Item Value Reference Range Interpretation Comments STAIN ACCEPTABILITY (test code = STN ACCEPTABLE) CABOT RINGS (test code = CAB) MORPHOLOGY COMMENT (test code = MOC) PLATELET ESTIMATE (test code = PLTEST) PLATELET MORPHOLOGY (test code = PLTMORPH) CBC W/AUTO [id number] 07:44:00* Test Item Value Reference Range Interpretation [...] = MDIFF) NO, ONLY SCAN NEEDED DIFFERENTIAL [id number] 07:44:00* Test Item Value Reference Range Interpretation Comments STAIN ACCEPTABILITY (test code = STN ACCEPTABLE) MORPHOLOGY COMMENT (test code = MOC) PLATELET ESTIMATE (test code = PLTEST) PLATELET MORPHOLOGY (test code = PLTMORPH) CBC W/AUTO [id number] 07:44:00* Test Item Value Reference Range Interpretation [...] = MDIFF) NO, ONLY SCAN NEEDED DIFFERENTIAL [id number] 07:44:00* Test Item Value Reference Range Interpretation Comments STAIN ACCEPTABILITY (test code = STN ACCEPTABLE) CABOT RINGS (test code = CAB) MORPHOLOGY COMMENT (test code = MOC) PLATELET ESTIMATE (test code = PLTEST) PLATELET MORPHOLOGY (test code = PLTMORPH) [id number] 07:34:00* Test Item Value Reference Range Interpretation Comments GLUBED (test code = GLUBED) 204 mg/dL 74-106 H Performed by certified can bander operator at [facility] [id number] 20:20:00* Test Item Value Reference Range Interpretation Comments GLUBED (test code = GLUBED) 234 mg/dL 74-106 H Performed by certified can bander operator at [facility] PROTHROMBIN [id number] 17:59:00* Test Item Value Reference Range Interpretation [...] (2.5-3.5) IS PATIENT ON ANTICOAGULANTS? NCBC W/O [id number] 17:49:00* Test Item Value Reference Range Interpretation [...] code = MPV) 12.2 fL 6.7-11.0 H [id number] 17:21:00* Test Item Value Reference Range Interpretation Comments GLUBED (test code = GLUBED) 146 mg/dL 74-106 H Performed by certified can bander operator at [facility] [id number] 12:20:00* Test Item Value Reference Range Interpretation Comments GLUBED (test code = GLUBED) 194 mg/dL 74-106 H Performed by certified can bander operator at [facility] ANTINUCLEAR ANTIBODIES [id number] 11:09:00* Test Item Value Reference Range Interpretation Comments BRIDGETT SCREEN (test code = ANASCR) Negative Negative Performed At: [address] [id number] Kyle L MD Ph:[phone] REFAB [id number] 11:09:00* Test Item Value Reference Range Interpretation Comments AB MITOCHONDRIAL (test code = MITOCHAB) EIA <1.0 [id number] 08:13:00* Test Item Value Reference Range Interpretation Comments GLUBED (test code = GLUBED) 188 mg/dL 74-106 H Performed by certified can bander operator at [facility] ALPHA FETOPROTEIN TUMOR [id number] 08:10:00* Test Item Value Reference Range Interpretation Comments ALPHA FETOPROTEIN TUMOR MARKER (test code = AFPTM) 3.9 ng/mL 0.0 -8.3 [facility] Electrochemiluminescence Immunoassay(ECLIA)Values obtained with different assay methods or kits cannotbe used interchangeably. Results cannot be interpreted asabsolute evidence of the presence or absence of malignantdisease.This test is not interpretable in females.Performed At: [facility] [address] [id number] Roe Palencia MD Ph:[phone] [id number] 08:07:00* Test Item Value Reference Range Interpretation Comments HEMOGLOBIN (test code = HGB) 8.3 gram/dL 13.0-17.5 L [id number] 20:38:00* Test Item Value Reference Range Interpretation Comments GLUBED (test code = GLUBED) 168 mg/dL 74-106 H Performed by certified can bander operator at [facility] [id number] 17:29:00* Test Item Value Reference Range Interpretation Comments GLUBED (test code = GLUBED) 192 mg/dL 74-106 H Performed by certified can bander operator at [facility] HGB [id number] 16:55:00* Test Item Value Reference Range Interpretation Comments HEMOGLOBIN (test code = HGB) 8.6 gram/dL 13.0-17.5 L RESULT VERIFIED BY REPEAT ANALYSIS HEMATOCRIT (test code = HCT) 25.4 % 42.0-52.0 L [id number] 13:43:00* Test Item Value Reference Range Interpretation Comments GLUBED (test code = GLUBED) 224 mg/dL 74-106 H Performed by certified can bander operator at [facility] ACUTE HEPATITIS [id number] 08:10:00* Test Item Value Reference Range Interpretation [...] with a HCV Nucleic Acid Amplification test ([id number]).Performed At: [facility] [address] [place], [place] [id number] Roe Palencia MD Ph:[phone] [id number] 08:02:00* Test Item Value Reference Range Interpretation Comments GLUBED (test code = GLUBED) 197 mg/dL 74-106 H Performed by certified can bander operator at [facility] AG HEPAT B [id number] 07:41:00* Test Item Value Reference Range Interpretation Comments AG HEPAT B SURF (test code = HBSAG) Nonreactive Index Nonreactive BASIC METABOLIC [id number] 03:15:00* Test Item Value Reference Range Interpretation [...] CA) 8.8 mg/dL 8.5-10.1 N HEPATIC FUNCTION [id number] 03:15:00* Test Item Value Reference Range Interpretation [...] due to change in reagent. CBC W/AUTO [id number] 02:51:00* Test Item Value Reference Range Interpretation Comments WHITE BLOOD CELL (test code = WBC) 5.2 K/mm3 4.5-12.5 N RED BLOOD CELL (test code = RBC) 2.04 mill/mm3 4.0-5.8 L HEMOGLOBIN (test code = HGB) 6.6 gram/dL 13.0-17.5 L HEMATOCRIT (test code = HCT) 19.9 % 42.0-52.0 LL Results called to [id number] by MORENO 10/09/19 0220Critical results verified and [...] = MDIFF) NO, ONLY SCAN NEEDED DIFFERENTIAL [id number] 02:51:00* Test Item Value Reference Range Interpretation [...] (test code = PLTMORPH) NORMAL BASIC METABOLIC [id number] 02:50:00* Test Item Value Reference Range Interpretation [...] code = CA) mg/dL 8.5-10.1 HEPATIC FUNCTION [id number] 02:50:00* Test Item Value Reference Range Interpretation [...] code = ALKP) IUnit/L 45-117 CBC W/AUTO [id number] 02:20:00* Test Item Value Reference Range Interpretation Comments WHITE BLOOD CELL (test code = WBC) 5.2 K/mm3 4.5-12.5 N RED BLOOD CELL (test code = RBC) 2.04 mill/mm3 4.0-5.8 L HEMOGLOBIN (test code = HGB) 6.6 gram/dL 13.0-17.5 L HEMATOCRIT (test code = HCT) 19.9 % 42.0-52.0 Results called to [id number] by MORENO 10/09/19 0220Critical results verified and [...] = MDIFF) NO, ONLY SCAN NEEDED DIFFERENTIAL [id number] 02:20:00* Test Item Value Reference Range Interpretation Comments STAIN ACCEPTABILITY (test code = STN ACCEPTABLE) CABOT RINGS (test code = CAB) MORPHOLOGY COMMENT (test code = MOC) PLATELET ESTIMATE (test code = PLTEST) PLATELET MORPHOLOGY (test code = PLTMORPH) CBC W/AUTO [id number] 02:20:00* Test Item Value Reference Range Interpretation Comments WHITE BLOOD CELL (test code = WBC) 5.2 K/mm3 4.5-12.5 N RED BLOOD CELL (test code = RBC) 2.04 mill/mm3 4.0-5.8 L HEMOGLOBIN (test code = HGB) 6.6 gram/dL 13.0-17.5 L HEMATOCRIT (test code = HCT) 19.9 % 42.0-52.0 LL Results called to [id number] by DENIJP1 10/09/19 0220Critical results verified and [...] = MDIFF) NO, ONLY SCAN NEEDED DIFFERENTIAL [id number] 02:20:00* Test Item Value Reference Range Interpretation Comments STAIN ACCEPTABILITY (test code = STN ACCEPTABLE) CABOT RINGS (test code = CAB) MORPHOLOGY COMMENT (test code = MOC) PLATELET ESTIMATE (test code = PLTEST) PLATELET MORPHOLOGY (test code = PLTMORPH) CBC W/AUTO [id number] 02:20:00* Test Item Value Reference Range Interpretation Comments WHITE BLOOD CELL (test code = WBC) 5.2 K/mm3 4.5-12.5 N RED BLOOD CELL (test code = RBC) 2.04 mill/mm3 4.0-5.8 L HEMOGLOBIN (test code = HGB) 6.6 gram/dL 13.0-17.5 L HEMATOCRIT (test code = HCT) 19.9 % 42.0-52.0 LL Results called to [id number] by VERONICA1 10/09/19 0220Critical results verified and [...] = MDIFF) NO, ONLY SCAN NEEDED DIFFERENTIAL [id number] 02:20:00* Test Item Value Reference Range Interpretation Comments STAIN ACCEPTABILITY (test code = STN ACCEPTABLE) MORPHOLOGY COMMENT (test code = MOC) PLATELET ESTIMATE (test code = PLTEST) PLATELET MORPHOLOGY (test code = PLTMORPH) CBC W/AUTO [id number] 02:20:00* Test Item Value Reference Range Interpretation Comments WHITE BLOOD CELL (test code = WBC) 5.2 K/mm3 4.5-12.5 N RED BLOOD CELL (test code = RBC) 2.04 mill/mm3 4.0-5.8 L HEMOGLOBIN (test code = HGB) 6.6 gram/dL 13.0-17.5 L HEMATOCRIT (test code = HCT) 19.9 % 42.0-52.0 Results called to [id number] by VERONICA1 10/09/19 0220Critical results verified and [...] = MDIFF) NO, ONLY SCAN NEEDED DIFFERENTIAL [id number] 02:20:00* Test Item Value Reference Range Interpretation Comments STAIN ACCEPTABILITY (test code = STN ACCEPTABLE) CABOT RINGS (test code = CAB) MORPHOLOGY COMMENT (test code = MOC) PLATELET ESTIMATE (test code = PLTEST) PLATELET MORPHOLOGY (test code = PLTMORPH) [id number] 20:19:00* Test Item Value Reference Range Interpretation Comments GLUBED (test code = GLUBED) 252 mg/dL 74-106 H Performed by certified can bander operator at [facility] [id number] 16:04:00* Test Item Value Reference Range Interpretation Comments GLUBED (test code = GLUBED) 216 mg/dL 74-106 H Performed by certified can bander operator at [facility] HGB [id number] 14:10:00* Test Item Value Reference Range Interpretation Comments HEMOGLOBIN (test code = HGB) 6.8 gram/dL 13.0-17.5 L HEMATOCRIT (test code = HCT) 20.7 % 42.0-52.0 LL Results called to [id number] by V.LAB.JQ 10/08/19 1410Critical results verified and read back by Nurse? Y [id number] 11:49:00* Test Item Value Reference Range Interpretation Comments GLUBED (test code = GLUBED) 197 mg/dL 74-106 H Performed by certified can bander operator at [facility] [id number] 08:14:00* Test Item Value Reference Range Interpretation Comments GLUBED (test code = GLUBED) 222 mg/dL 74-106 H Performed by certified can bander operator at [facility] CBC W/AUTO [id number] 08:14:00* Test Item Value Reference Range Interpretation Comments WHITE BLOOD CELL (test code = WBC) 5.4 K/mm3 4.5-12.5 N RED BLOOD CELL (test code = RBC) 2.02 mill/mm3 4.0-5.8 L HEMOGLOBIN (test code = HGB) 6.6 gram/dL 13.0-17.5 L HEMATOCRIT (test code = HCT) 19.4 % 42.0-52.0 LL Results called to [id number] by V.LAB.JQ 10/08/19 0701Critical results verified and [...] = MDIFF) NO, ONLY SCAN NEEDED DIFFERENTIAL [id number] 08:14:00* Test Item Value Reference Range Interpretation [...] (test code = PLTMORPH) NORMAL BASIC METABOLIC [id number] 07:45:00* Test Item Value Reference Range Interpretation [...] CA) 8.4 mg/dL 8.5-10.1 L HEPATIC FUNCTION [id number] 07:45:00* Test Item Value Reference Range Interpretation [...] due to change in reagent. BASIC METABOLIC [id number] 07:37:00* Test Item Value Reference Range Interpretation [...] code = CA) mg/dL 8.5-10.1 HEPATIC FUNCTION [id number] 07:37:00* Test Item Value Reference Range Interpretation [...] code = ALKP) IUnit/L 45-117 CBC W/AUTO [id number] 07:01:00* Test Item Value Reference Range Interpretation Comments WHITE BLOOD CELL (test code = WBC) 5.4 K/mm3 4.5-12.5 N RED BLOOD CELL (test code = RBC) 2.02 mill/mm3 4.0-5.8 L HEMOGLOBIN (test code = HGB) 6.6 gram/dL 13.0-17.5 L HEMATOCRIT (test code = HCT) 19.4 % 42.0-52.0 LL Results called to [id number] by LESLIE 10/08/19 0701Critical results verified and [...] = MDIFF) NO, ONLY SCAN NEEDED DIFFERENTIAL [id number] 07:01:00* Test Item Value Reference Range Interpretation Comments STAIN ACCEPTABILITY (test code = STN ACCEPTABLE) CABOT RINGS (test code = CAB) MORPHOLOGY COMMENT (test code = MOC) PLATELET ESTIMATE (test code = PLTEST) PLATELET MORPHOLOGY (test code = PLTMORPH) CBC W/AUTO [id number] 07:01:00* Test Item Value Reference Range Interpretation Comments WHITE BLOOD CELL (test code = WBC) 5.4 K/mm3 4.5-12.5 N RED BLOOD CELL (test code = RBC) 2.02 mill/mm3 4.0-5.8 L HEMOGLOBIN (test code = HGB) 6.6 gram/dL 13.0-17.5 L HEMATOCRIT (test code = HCT) 19.4 % 42.0-52.0 LL Results called to [id number] by LESLIE 10/08/19 0701Critical results verified and [...] = MDIFF) NO, ONLY SCAN NEEDED DIFFERENTIAL [id number] 07:01:00* Test Item Value Reference Range Interpretation Comments STAIN ACCEPTABILITY (test code = STN ACCEPTABLE) CABOT RINGS (test code = CAB) MORPHOLOGY COMMENT (test code = MOC) PLATELET ESTIMATE (test code = PLTEST) PLATELET MORPHOLOGY (test code = PLTMORPH) CBC W/AUTO [id number] 07:01:00* Test Item Value Reference Range Interpretation Comments WHITE BLOOD CELL (test code = WBC) 5.4 K/mm3 4.5-12.5 N RED BLOOD CELL (test code = RBC) 2.02 mill/mm3 4.0-5.8 L HEMOGLOBIN (test code = HGB) 6.6 gram/dL 13.0-17.5 L HEMATOCRIT (test code = HCT) 19.4 % 42.0-52.0 LL Results called to [id number] by LESLIE 10/08/19 0701Critical results verified and [...] = MDIFF) NO, ONLY SCAN NEEDED DIFFERENTIAL [id number] 07:01:00* Test Item Value Reference Range Interpretation Comments STAIN ACCEPTABILITY (test code = STN ACCEPTABLE) MORPHOLOGY COMMENT (test code = MOC) PLATELET ESTIMATE (test code = PLTEST) PLATELET MORPHOLOGY (test code = PLTMORPH) CBC W/AUTO [id number] 07:01:00* Test Item Value Reference Range Interpretation Comments WHITE BLOOD CELL (test code = WBC) 5.4 K/mm3 4.5-12.5 N RED BLOOD CELL (test code = RBC) 2.02 mill/mm3 4.0-5.8 L HEMOGLOBIN (test code = HGB) 6.6 gram/dL 13.0-17.5 L HEMATOCRIT (test code = HCT) 19.4 % 42.0-52.0 LL Results called to [id number] by LESLIE 10/08/19 0701Critical results verified and [...] = MDIFF) NO, ONLY SCAN NEEDED DIFFERENTIAL [id number] 07:01:00* Test Item Value Reference Range Interpretation Comments STAIN ACCEPTABILITY (test code = STN ACCEPTABLE) CABOT RINGS (test code = CAB) MORPHOLOGY COMMENT (test code = MOC) PLATELET ESTIMATE (test code = PLTEST) PLATELET MORPHOLOGY (test code = PLTMORPH) [id number] 23:25:00* Test Item Value Reference Range Interpretation Comments GLUBED (test code = GLUBED) 187 mg/dL 74-106 H Performed by certified can bander operator at [facility] - US ABDOMEN [id number] 20:26:00 Name: VIOLETTE LAMB [facility] : 1965 Age/S: 54 / M [address] [facility] Unit #: [id number] Loc: [place] [address] Phys: Pawel Salvador MD Acct: [id number] Dis Date: Status: ADM IN PHONE #: [phone] Exam Date: 10/07/20192003 FAX #: [phone] Reason: jaundice EXAMS: CPT CODE: [id number] US ABDOMEN COMPLETE [id number] REASON FOR EXAM: jaundice EXAM ORDER DATE: 10/07/2019 7:23 PM Ordering: Pawel Salvador MD Attending:Pawel Salvador MD Location:[facility] PROCEDURE: - US ABDOMEN COMPLETE FINDINGS: The [...] Signed Re port - XR CHEST 1 [id number] 20:24:00 FAX: Pawel Beasley MD [place]: St: [facility] FAX: Adin Kim MD [phone] Name: VIOLETTE LAMB [facility] : 1965 Age/S: 54/M [address] [facility] Unit #: [id number] Loc: [place] [address] Phys: Pawel Salvador MD Acct: [id number] Dis Date: Status: ADM IN PHONE #: [phone] Exam Date: 10/07/20192010 FAX #: [phone] Reason: h/o chf EXAMS: CPT CODE: [id number] XR CHEST 1 V 66022 REASON FOR EXAM: h/o chf EXAM ORDER [...] FESAT) 39.55 % 13-45 N HEPATIC FUNCTION [id number] 19:19:00* Test Item Value Reference Range Interpretation [...] reference range due to change in reagent. [id number] 19:19:00* Test Item Value Reference Range Interpretation Comments LIPASE (test code = LIP) 166 U/L 73.0-393.0 N [id number] 19:19:00* Test Item Value Reference Range Interpretation Comments TROPONIN-I (test code = TROPI) 0.030 ng/mL 0-0.045 N BASIC METABOLIC [id number] 18:22:00* Test Item Value Reference Range Interpretation [...] CA) 8.8 mg/dL 8.5-10.1 N BASIC METABOLIC [id number] 18:18:00* Test Item Value Reference Range Interpretation [...] (test code = CA) mg/dL 8.5-10.1 PROTHROMBIN [id number] 18:15:00* Test Item Value Reference Range Interpretation [...] (2.5-3.5) IS PATIENT ON ANTICOAGULANTS? NTHROMBOPLASTIN TIME [id number] 18:15:00* Test Item Value Reference Range Interpretation Comments THROMBOPLASTIN TIME PARTIAL (test code = PTT) 34.2 seconds 25.0-36. 5 N IS PATIENT ON ANTICOAGULANTS? NCBC W/O [id number] 18:07:00* Test Item Value Reference Range Interpretation Comments WHITE BLOOD CELL (test code = WBC) 4.6 K/mm3 4.5-12.5 N RED BLOOD CELL (test code = RBC) 2.22 mill/mm3 4.0-5.8 L HEMOGLOBIN (test code = HGB) 7.2 gram/dL 13.0-17.5 L HEMATOCRIT (test code = HCT) 20.8 % 42.0-52.0 LL Results called to [id number] by MICHELET 10/07/19 1804Critical results verified and [...] code = MPV) 12.1 fL 6.7-11.0 H [id number] 09:59:00* Test Item Value Reference Range Interpretation Comments GLUBED (test code = GLUBED) 100 mg/dL 74-106 N Performed by certified can bander operator at [facility] CBC W/AUTO [id number] 19:58:00* Test Item Value Reference Range Interpretation [...] = MDIFF) NO, ONLY SCAN NEEDED DIFFERENTIAL [id number] 19:58:00* Test Item Value Reference Range Interpretation Comments STAIN ACCEPTABILITY (test code = STN ACCEPTABLE) STAIN ACCEPTABLE ANISOCYTOSIS (test code = ANISO) 1+ PLATELET ESTIMATE (test code = PLTEST) DECREASED PLATELET MORPHOLOGY (test code = PLTMORPH) NORMAL COMPREHENSIVE METABOLIC [id number] 18:51:00* Test Item Value Reference Range Interpretation [...] LDL result is a direct measurement.========= PROTHROMBIN [id number] 18:47:00* Test Item Value Reference Range Interpretation [...] Mechanical prosthetic heart valves (2.5-3.5) THROMBOPLASTIN TIME [id number] 18:47:00* Test Item Value Reference Range Interpretation Comments THROMBOPLASTIN TIME PARTIAL (test code = PTT) 35.7 seconds 25.0-36. 5 N COMPREHENSIVE METABOLIC [id number] 18:43:00* Test Item Value Reference Range Interpretation [...] result is a direct measurement.========= CBC W/AUTO [id number] 18:39:00* Test Item Value Reference Range Interpretation [...] = MDIFF) NO, ONLY SCAN NEEDED DIFFERENTIAL [id number] 18:39:00* Test Item Value Reference Range Interpretation Comments STAIN ACCEPTABILITY (test code = STN ACCEPTABLE) CABOT RINGS (test code = CAB) MORPHOLOGY COMMENT (test code = MOC) PLATELET ESTIMATE (test code = PLTEST) PLATELET MORPHOLOGY (test code = PLTMORPH) CBC W/AUTO [id number] 18:39:00* Test Item Value Reference Range Interpretation [...] = MDIFF) NO, ONLY SCAN NEEDED DIFFERENTIAL [id number] 18:39:00* Test Item Value Reference Range Interpretation Comments STAIN ACCEPTABILITY (test code = STN ACCEPTABLE) MORPHOLOGY COMMENT (test code = MOC) PLATELET ESTIMATE (test code = PLTEST) PLATELET MORPHOLOGY (test code = PLTMORPH) CBC W/AUTO [id number] 18:39:00* Test Item Value Reference Range Interpretation [...] = MDIFF) NO, ONLY SCAN NEEDED DIFFERENTIAL [id number] 18:39:00* Test Item Value Reference Range Interpretation Comments STAIN ACCEPTABILITY (test code = STN ACCEPTABLE) MORPHOLOGY COMMENT (test code = MOC) PLATELET ESTIMATE (test code = PLTEST) PLATELET MORPHOLOGY (test code = PLTMORPH) CBC W/AUTO [id number] 18:39:00* Test Item Value Reference Range Interpretation [...] = MDIFF) NO, ONLY SCAN NEEDED DIFFERENTIAL [id number] 18:39:00* Test Item Value Reference Range Interpretation Comments STAIN ACCEPTABILITY (test code = STN ACCEPTABLE) CABOT RINGS (test code = CAB) MORPHOLOGY COMMENT (test code = MOC) PLATELET ESTIMATE (test code = PLTEST) PLATELET MORPHOLOGY (test code = PLTMORPH) COMPREHENSIVE METABOLIC [id number] 18:28:00* Test Item Value Reference Range Interpretation [...] (test code = LDL) mg/dL 100-129 Bedside [id number] 07:27:00* Test Item Value Reference Range Interpretation Comments Bedside Glucose (test code = 83360-8) 111 70-120 Meter ID: [id number] [facility], [id number] 10:55:00* Test Item Value Reference Range Interpretation Comments Hepatitis B Surface Antibody, Quant (test code = 5194-6) <3.0 Reference Range: Immunity>9.9 mIU/mLStatus of Immunity Anti-HBs Level Inconsistent with Immunity 0.0 - 9.9Consistent with Immunity >9.9[facility] Be Vijfwcg6486-62-65 10:55:00* Test Item Value Reference Range Interpretation Comments Hepatitis Be Antigen (test code = 97635-4) Negative [facility] B Core Total [id number] 10:55:00* Test Item Value Reference Range Interpretation Comments Hepatitis B Core Total Antibody (test code = 21295-4) Negative [facility] B Core IgM [id number] 10:55:00* Test Item Value Reference Range Interpretation Comments Hepatitis B Core IgM Antibody (test code = 84252-9) Negative [facility] B Surface Antibody, Quant 2019-07-16 10:55:00* Test Item Value Reference Range Interpretation Comments Hepatitis B Surface Antibody, Quant (test code = 5194-6) <3.0 Reference Range: Immunity>9.9 mIU/mLStatus of Immunity Anti-HBs Level Inconsistent with Immunity 0.0 - 9.9Consistent with Immunity >9.9[facility] Be Bldnsed0790-13-48 10:55:00* Test Item Value Reference Range Interpretation Comments Hepatitis Be Antigen (test code = 25077-9) Negative [facility] B Surface Cqmkaju4739-60-56 08:44:00* Test Item Value Reference Range Interpretation Comments Hepatitis B Surface Antigen (test code = 5196-1) Negative Negat [place] [facility] Be Rmpqpysv0921-28-37 22:26:00 * Test Item Value Reference Range Interpretation Comments Hepatitis Be Antibody (test code = 89831-9) Negative Negative Performed at: [address] [id number] Ophthalmic Medical Technologist: Dasha Lr MD, Phone: [phone] Health [facility] & [facility] Arlingtontool Occult [id number] 09:51:00* Test Item Value Reference Range Interpretation Comments Stool Occult Blood (test code = 2335-8) NEGATIVE NEGATIVE [facility] Arlingtontool Occult [id number] 09:51:00* Test Item Value Reference Range Interpretation Comments Stool Occult Blood (test code = 2335-8) NEGATIVE NEGATIVE [facility] Arlingtonodium Xqkpk9063-40-41 06:41:00* Test Item Value Reference Range Interpretation Comments Sodium Level (test code = 2951-2) 136 136-145 [facility]kinPotassium Isgpt7183-16-61 06:41:00* Test Item Value Reference Range Interpretation Comments Potassium Level (test code = 2823-3) 4.5 3.5-5.1 [facility] LufkinChloride Cottc3978-27-99 06:41:00* Test Item Value Reference Range Interpretation Comments Chloride Level (test code = 2075-0) 102 98-107 [facility] LufkinCarbon Dioxide Xbgmk3390-27-88 06:41:00* Test Item Value Reference Range Interpretation Comments Carbon Dioxide Level (test code = 2028-9) 23 22-29 [facility] LufkinAnion [id number] 06:41:00* Test Item Value Reference Range Interpretation Comments Anion Gap (test code = 90203-4) 15.5 8-16 [facility] LufkinBlood Urea Zfbccnwf7985-57-70 06:41:00* Test Item Value Reference Range Interpretation Comments Blood Urea Nitrogen (test code = 3094-0) 53 7-[address] [facility] LufkinCreatinine2019-12-16 06:41:00* Test Item Value Reference Range Interpretation Comments Creatinine (test code = 2160-0) 4.01 0.72-1.[address] [facility] LufkinBUN/Creatinine Fgjsa8404-27-65 06:41:00* Test Item Value Reference Range Interpretation Comments BUN/Creatinine Ratio (test code = 3097-3) 13 6-25 [facility] LufkinEstimat Glomerular Filtration Rate 2019-07-15 06:41:00* Test Item Value Reference Range Interpretation Comments Estimat Glomerular Filtration Rate (test code = 813548546) 16 >60 L Ranges were taken from the National Kidney Disease Education Program and the [facility] Kidney Foundation literature.Reference ranges:60 or greater: Zkiobr23-57 ( for 3 consecutive months): Chronic kidney disease 15 or less: Kidney failureSt. Luke's Health – Memorial LufkinGlucose Bdwao4270-78-92 06:41:00* Test Item Value Reference Range Interpretation Comments Glucose Level (test code = WKO7765) 184 74-[address] [facility] LufkinCalcium Aqhko8988-13-59 06:41:00* Test Item Value Reference Range Interpretation Comments Calcium Level (test code = 65133-3) 8.4 8.4-10.2 [facility] [place] gastrointestinal hemoglobin lbjorkzgm3241-25-85 05:30:00* Test Item Value Reference Range Interpretation Comments Stool Occult Blood (test code = 2335-8) NEGATIVE NEGATIVE [facility] gastrointestinal hemoglobin wbbfbjohm0373-93-14 05:30:00* Test Item Value Reference Range Interpretation Comments Stool Occult Blood (test code = 2335-8) NEGATIVE NEGATIVE [facility] gastrointestinal hemoglobin jipempiwo7425-85-59 05:30:00* Test Item Value Reference Range Interpretation Comments Stool Occult Blood (test code = 2335-8) NEGATIVE NEGATIVE [facility] gastrointestinal hemoglobin saraqhxsm9034-59-22 05:30:00* Test Item Value Reference Range Interpretation Comments Stool Occult Blood (test code = 2335-8) NEGATIVE NEGATIVE [facility] LufkinWhite Blood Tgqck5736-31-54 08:59:00* Test Item Value Reference Range Interpretation Comments White Blood Count (test code = 6690-2) 4.18 4.8-10.[address] [facility] Memorial LufkinRed Blood Qmivx9607-58-37 08:59:00* Test Item Value Reference Range Interpretation Comments Red Blood Count (test code = 789-8) 2.65 4.3-5.[address] [facility] LufkinHemoglobin2019-12-15 08:59:00* Test Item Value Reference Range Interpretation Comments Hemoglobin (test code = 09506-9) 8.2 14.0-18.[address] [facility] LufkinHematocrit2019-12-15 08:59:00* Test Item Value Reference Range Interpretation Comments Hematocrit (test code = 4544-3) 26.0 38.2-49.[address] [facility] Memorial LufkinMean Corpuscular Khcxsr2439-04-00 08:59:00* Test Item Value Reference Range Interpretation Comments Mean Corpuscular Volume (test code = 787-2) 98.1 81-99 [facility] LufkinMean Corpuscular Rnparhleuu8906-65-13 08:59:00* Test Item Value Reference Range Interpretation Comments Mean Corpuscular Hemoglobin (test code = 785-6) 30.9 28-32 [facility] LufkinMean Corpuscular Hemoglobin Concent 2019-07-14 08:59:00* Test Item Value Reference Range Interpretation Comments Mean Corpuscular Hemoglobin Concent (test code = 786-4) 31.5 31-35 [facility] LufkinRed Cell Distribution Hadmj6793-77-64 08:59:00* Test Item Value Reference Range Interpretation Comments Red Cell Distribution Width (test code = 60607-7) 18.4 11.7 -14.[address] [facility] Memorial LufkinPlatelet Ftkhi2534-37-04 08:59:00* Test Item Value Reference Range Interpretation Comments Platelet Count (test code = 777-3) 90 140-[address] [facility] LufkinNeutrophils (%) (Auto)2019-07-14 08:59:00 * Test Item Value Reference Range Interpretation Comments Neutrophils (%) (Auto) (test code = 06082-0) 72.3 38.7-80.0 [facility] LufkinLymphocytes (%) (Auto)2019-07-14 08:59:00 * Test Item Value Reference Range Interpretation Comments Lymphocytes (%) (Auto) (test code = 736-9) 12.2 18.0-39.[address] [facility] LufkinMonocytes (%) (Auto)2019-07-14 08:59:00* Test Item Value Reference Range Interpretation Comments Monocytes (%) (Auto) (test code = 5905-5) 10.3 4.4-11.3 [facility] LufkinEosinophils (%) (Auto)2019-07-14 08:59:00 * Test Item Value Reference Range Interpretation Comments Eosinophils (%) (Auto) (test code = 713-8) 4.5 0.0-6.0 [facility] LufkinBasophils (%) (Auto)2019-07-14 08:59:00* Test Item Value Reference Range Interpretation Comments Basophils (%) (Auto) (test code = 706-2) 0.5 0.0-1.0 [facility] Memorial LufkinIM GRANULOCYTES %2019-07-14 08:59:00* Test Item Value Reference Range Interpretation Comments IM GRANULOCYTES % (test code = IM GRANULOCYTES %) 0.2 0.0- 1.0 [facility] LufkinNeutrophils # (Auto)2019-07-14 08:59:00* Test Item Value Reference Range Interpretation Comments Neutrophils # (Auto) (test code = 751-8) 3.0 2.1-6.9 [facility] LufkinLymphocytes # (Auto)2019-07-14 08:59:00* Test Item Value Reference Range Interpretation Comments Lymphocytes # (Auto) (test code = 86121-9) 0.5 1.0-3.[address] [facility] LufkinMonocytes # (Auto)2019-07-14 08:59:00* Test Item Value Reference Range Interpretation Comments Monocytes # (Auto) (test code = 742-7) 0.4 0.2-0.8 [facility]ufkinEosinophils # (Auto)2019-07-14 08:59:00* Test Item Value Reference Range Interpretation Comments Eosinophils # (Auto) (test code = 711-2) 0.2 0.0-0.4 [facility]ufkinBasophils # (Auto)2019-07-14 08:59:00* Test Item Value Reference Range Interpretation Comments Basophils # (Auto) (test code = 704-7) 0.0 0.0-0.1 [facility] LufkinAbsolute Immature Granulocyte (auto 2019-07-14 08:59:00* Test Item Value Reference Range Interpretation Comments Absolute Immature Granulocyte (auto (rupinder t code = Absolute Immature Granulocyte (auto) 0.01 0-0.1 [facility] LufkinFerritin2019-12-14 09:20:00* Test Item Value Reference Range Interpretation Comments Ferritin (test code = 2276-4) 225.81 21.81-274.66 [facility] LufkinDifferential Total Cells Counted 2019-07-13 08:32:00* Test Item Value Reference Range Interpretation Comments Differential Total Cells Counted (test code = Differen tial Total Cells Counted) 100 [facility] LufkinNeutrophils % (Manual)2019-07-13 08:32:00 * Test Item Value Reference Range Interpretation Comments Neutrophils % (Manual) (test code = 92486-2) 80 40-[address] [facility] LufkinBand Neutrophils %2019-07-13 08:32:00* Test Item Value Reference Range Interpretation Comments Band Neutrophils % (test code = 764-1) 1 [facility] LufkinLymphocytes % (Manual)2019-07-13 08:32:00 * Test Item Value Reference Range Interpretation Comments Lymphocytes % (Manual) (test code = 737-7) 12 19-[address] [facility] LufkinMonocytes % (Manual)2019-07-13 08:32:00* Test Item Value Reference Range Interpretation Comments Monocytes % (Manual) (test code = 744-3) 5 3.4-9.0 [facility]ufkinEosinophils % (Manual)2019-07-13 08:32:00 * Test Item Value Reference Range Interpretation Comments Eosinophils % (Manual) (test code = 714-6) 2 0-7 [facility] Memorial LufkinPlatelet Fxxbznby0482-65-36 08:32:00* Test Item Value Reference Range Interpretation Comments Platelet Estimate (test code = 57255-7) MODERATELY DECREASED [facility] Memorial LufkinPlatelet Morphology Oeujxeg7984-83-03 08:32:00* Test Item Value Reference Range Interpretation Comments Platelet Morphology Comment (test code = 11680-3) NORMAL [facility] LufkinRed Cell Morphology Isyzksl3929-12-31 08:32:00* Test Item Value Reference Range Interpretation Comments Red Cell Morphology Comment (test code = 6742-1) NORMAL [facility] LufkinBand Neutrophils %2019-07-13 08:32:00* Test Item Value Reference Range Interpretation Comments Band Neutrophils % (test code = 764-1) 1 [facility] LufkinIron Ytabc0534-89-06 06:35:00* Test Item Value Reference Range Interpretation Comments Iron Level (test code = 2498-4) 37 65-[address] [facility] LufkinTotal Iron Binding Tgssqodv6506-30-08 06:35:00* Test Item Value Reference Range Interpretation Comments Total Iron Binding Capacity (test code = 2500-7) 246 261-[address] [facility] LufkinPercent Iron Eumczxhyly5341-38-93 06:35:00* Test Item Value Reference Range Interpretation Comments Percent Iron Saturation (test code = 2502-3) 15 15-50 [facility] LufkinTransferrin2019-12-14 06:35:00* Test Item Value Reference Range Interpretation Comments Transferrin (test code = 3034-6) 176 174-364 [facility] LufkinHemoglobin A1c Dnxqnhe1309-37-80 06:33:00 * Test Item Value Reference Range Interpretation Comments Hemoglobin A1c Percent (test code = Hemoglobin A1c Percent) 6.7 4.0-7.0 [facility] LufkinHemoglobin A1c Nlrthkd0763-03-19 06:33:00 * Test Item Value Reference Range Interpretation Comments Hemoglobin A1c Percent (test code = Hemoglobin A1c Percent) 6.7 4.0-7.0 [facility] LufkinManual blood band neutrophils form/100 rimqonwfyx3402-38-56 04:15:00* Test Item Value Reference Range Interpretation Comments Band Neutrophils % (test code = 764-1) 1 [facility] LufkinFluoroscopic procedure less than one hour ghxcchaf1467-92-88 04:15:00* Test Item Value Reference Range Interpretation Comments Hemoglobin A1c Percent (test code = Hemoglobin A1c Percent) 6.7 4.0-7.0 [facility] LufkinManual blood band neutrophils form/100 dczvwjkdxu5766-45-03 04:15:00* Test Item Value Reference Range Interpretation Comments Band Neutrophils % (test code = 764-1) 1 [facility] LufkinFluoroscopic procedure less than one hour njffpfrw8375-01-22 04:15:00* Test Item Value Reference Range Interpretation Comments Hemoglobin A1c Percent (test code = Hemoglobin A1c Percent) 6.7 4.0-7.0 [facility]ufkinManual blood band neutrophils form/100 aonbqihkob6968-30-20 04:15:00* Test Item Value Reference Range Interpretation Comments Band Neutrophils % (test code = 764-1) 1 [facility] LufkinFluoroscopic procedure less than one hour kpwbctke2198-95-57 04:15:00* Test Item Value Reference Range Interpretation Comments Hemoglobin A1c Percent (test code = Hemoglobin A1c Percent) 6.7 4.0-7.0 [facility] LufkinManual blood band neutrophils form/100 gaxembgres9069-99-71 04:15:00* Test Item Value Reference Range Interpretation Comments Band Neutrophils % (test code = 764-1) 1 [facility] LufkinFluoroscopic procedure less than one hour zkuirhys7235-08-89 04:15:00* Test Item Value Reference Range Interpretation Comments Hemoglobin A1c Percent (test code = Hemoglobin A1c Percent) 6.7 4.0-7.0 [facility] LufkinCT ABDOMEN/PELVIS NV1079-18-09 15:37:00 [place] [address] Patient Name: DIGNA LAMB MR #: [id number] : 1965 Age/Sex: 54/M Req #: [id number] Adm Physician: CINDY ALVAREZ MD Ordered by: CINDY ALVAREZ MD Report #: [id number] Location: MED/SURG3 Room/Bed: [facility] Procedure: [id number]/CT ABDOMEN/PELVIS WO Exam [...] COPY TO: CINDY ALVAREZ MD CT CHEST KC9210-03-12 15:37:00 [place] [address] Patient Name: VIOLETTE LAMB MR #: [id number] : 1965 Age/Sex: 54/M Req #: [id number] Adm Physician: CINDY ALVAREZ MD Ordered by: CINDY ALVAREZ MD Report #: [id number] Location: [place] [address] Room/Bed: [facility] Procedure: 1213-[address]/CT CHEST WO Exam [...] COPY TO: CINDY ALVAREZ MD Vitamin B12 Zdbwf6665-16-93 10:47:00* Test Item Value Reference Range Interpretation Comments Vitamin B12 Level (test code = 34031-6) 710 213-294 [facility] LufkinThyroid Stimulating Hormone (TSH) 2019-07-12 10:29:00* Test Item Value Reference Range Interpretation Comments Thyroid Stimulating Hormone (TSH) (test code = 07798-5) 1.875 0.350-4.940 [facility] LufkinThyroid Stimulating Hormone (TSH) 2019-07-12 10:29:00* Test Item Value Reference Range Interpretation Comments Thyroid Stimulating Hormone (TSH) (test code = 99632-9) 1.875 0.350-4.940 [facility] Arlingtonerum or plasma thyrotropin measurement by detection limit <= 0.005 miu/l (units/volume)2019-07-12 04:15:00* Test Item Value Reference Range Interpretation Comments Thyroid Stimulating Hormone (TSH) (test code = 54872-0) 1.875 0.350-4.940 [facility] Arlingtonerum or plasma thyrotropin measurement by detection limit <= 0.005 miu/l (units/volume)2019-07-12 04:15:00* Test Item Value Reference Range Interpretation Comments Thyroid Stimulating Hormone (TSH) (test code = 34821-8) 1.875 0.350-4.940 [facility] Arlingtonerum or plasma thyrotropin measurement by detection limit <= 0.005 miu/l (units/volume)2019-07-12 04:15:00* Test Item Value Reference Range Interpretation Comments Thyroid Stimulating Hormone (TSH) (test code = 13374-7) 1.875 0.350-4.940 [facility] Arlingtonerum or plasma thyrotropin measurement by detection limit <= 0.005 miu/l (units/volume)2019-07-12 04:15:00* Test Item Value Reference Range Interpretation Comments Thyroid Stimulating Hormone (TSH) (test code = 93382-5) 1.875 0.350-4.940 [facility] LufkinTotal Zutcypcnw5022-80-29 21:11:00* Test Item Value Reference Range Interpretation Comments Total Bilirubin (test code = 1975-2) 1.7 0.2-1.[address] [facility] LufkinDirect Urkmmtqhd1833-73-84 21:11:00* Test Item Value Reference Range Interpretation Comments Direct Bilirubin (test code = 53662-4) 1.4 0.0-0.[address] [facility] LufkinAspartate Amino Transf (AST/SGOT) 2019-07-11 21:11:00* Test Item Value Reference Range Interpretation Comments Aspartate Amino Transf (AST/SGOT) (test code = Aspartate Amino Transf (AST/SGOT)) 28 5-34 [facility] LufkinAlanine Aminotransferase (ALT/SGPT) 2019-07-11 21:11:00* Test Item Value Reference Range Interpretation Comments Alanine Aminotransferase (ALT/SGPT) (test code = 1742-6) 50 0-55 [facility] LufkinTotal Tqpadgr7986-47-09 21:11:00* Test Item Value Reference Range Interpretation Comments Total Protein (test code = 2885-2) 6.5 6.5-8.1 [facility] LufkinAlbumin2019-12-12 21:11:00* Test Item Value Reference Range Interpretation Comments Albumin (test code = 1751-7) 2.7 3.5-5.[address] [facility] LufkinAlkaline Eioctpqoude1580-42-43 21:11:00* Test Item Value Reference Range Interpretation Comments Alkaline Phosphatase (test code = 6768-6) 714 40-150 H [facility] Arlingtonerum hepatitis B virus surface antibody assay by radioimmunoassay (units/volume)2019-07-11 19:36:00* Test Item Value Reference Range Interpretation Comments Hepatitis B Surface Antibody, Quant (test code = 5194-6) <3.0 Reference Range: Immunity>9.9 mIU/mLStatus of Immunity Anti-HBs Level Inconsistent with Immunity 0.0 - 9.9Consistent with Immunity >9.9[facility] Hospitalerum hepatitis B virus e antigen detection by enzyme immunoassay 2019-07-11 19:36:00* Test Item Value Reference Range Interpretation Comments Hepatitis Be Antigen (test code = 92988-4) Negative [facility] Arlingtonerum hepatitis B virus surface antibody assay by radioimmunoassay (units/volume)2019-07-11 19:36:00* Test Item Value Reference Range Interpretation Comments Hepatitis B Surface Antibody, Quant (test code = 5194-6) <3.0 Reference Range: Immunity>9.9 mIU/mLStatus of Immunity Anti-HBs Level Inconsistent with Immunity 0.0 - 9.9Consistent with Immunity >9.9CA[facility] Austinerum hepatitis B virus e antigen detection by enzyme immunoassay 2019-07-11 19:36:00* Test Item Value Reference Range Interpretation Comments Hepatitis Be Antigen (test code = 38240-9) Negative [facility] Arlingtonerum hepatitis B virus surface antibody assay by radioimmunoassay (units/volume)2019-07-11 19:36:00* Test Item Value Reference Range Interpretation Comments Hepatitis B Surface Antibody, Quant (test code = 5194-6) <3.0 Reference Range: Immunity>9.9 mIU/mLStatus of Immunity Anti-HBs Level Inconsistent with Immunity 0.0 - 9.9Consistent with Immunity >9.9CA[facility] Austinerum hepatitis B virus e antigen detection by enzyme immunoassay 2019-07-11 19:36:00* Test Item Value Reference Range Interpretation Comments Hepatitis Be Antigen (test code = 63380-8) Negative [facility] Arlingtonerum hepatitis B virus surface antibody assay by radioimmunoassay (units/volume)2019-07-11 19:36:00* Test Item Value Reference Range Interpretation Comments Hepatitis B Surface Antibody, Quant (test code = 5194-6) <3.0 Reference Range: Immunity>9.9 mIU/mLStatus of Immunity Anti-HBs Level Inconsistent with Immunity 0.0 - 9.9Consistent with Immunity >9.9[facility] Hospitalerum hepatitis B virus e antigen detection by enzyme immunoassay 2019-07-11 19:36:00* Test Item Value Reference Range Interpretation Comments Hepatitis Be Antigen (test code = 39878-7) Negative [facility] LufkinCreatine Kinase DW8442-91-31 12:55:00* Test Item Value Reference Range Interpretation Comments Creatine Kinase MB (test code = 75700-5) 4.00 0-5.0 [facility] LufkinTroponin [id number] 12:55:00* Test Item Value Reference Range Interpretation Comments Troponin I (test code = PAQ6814) 0.032 0-0.300 [facility] LufkinB-Type Natriuretic Rsgifur5372-67-37 12:48:00* Test Item Value Reference Range Interpretation Comments B-Type Natriuretic Peptide (test code = 42332-5) 3663.2 0-[address] [facility] LufkinB-Type Natriuretic Ilbpsmz2503-86-89 12:48:00* Test Item Value Reference Range Interpretation Comments B-Type Natriuretic Peptide (test code = 79548-4) 3663.2 0-[address] [facility] LufkinUrine BOU0854-06-85 12:46:00* Test Item Value Reference Range Interpretation Comments Urine WBC (test code = 5821-4) 6-10 0-[address] [facility] LufkinUrine TZI6288-08-88 12:46:00* Test Item Value Reference Range Interpretation Comments Urine RBC (test code = 06563-6) 0-5 0-5 [facility] LufkinUrine Znorcabu0333-51-68 12:46:00* Test Item Value Reference Range Interpretation Comments Urine Bacteria (test code = 00616-7) FEW NONE [facility] LufkinUrine Epithelial Lysgf0864-72-67 12:46:00 * Test Item Value Reference Range Interpretation Comments Urine Epithelial Cells (test code = 44259-2) FEW NONE [facility] LufkinUrine JRY4733-76-95 12:46:00* Test Item Value Reference Range Interpretation Comments Urine WBC (test code = 5821-4) 6-10 0-[address] [facility]ufkinUrine FCA1061-05-22 12:46:00* Test Item Value Reference Range Interpretation Comments Urine RBC (test code = 88629-2) 0-5 0-5 [facility]kinUrine Zwstkmgf2881-83-36 12:46:00* Test Item Value Reference Range Interpretation Comments Urine Bacteria (test code = 84308-6) FEW NONE [facility]ufkinUrine Epithelial Wnjax0070-72-70 12:46:00 * Test Item Value Reference Range Interpretation Comments Urine Epithelial Cells (test code = 51246-4) FEW NONE [facility] LufkinUrine Ncnhs2136-80-99 12:43:00* Test Item Value Reference Range Interpretation Comments Urine Color (test code = 5778-6) YELLOW YELLOW [facility]ufkinUrine Poepwbp0017-15-46 12:43:00* Test Item Value Reference Range Interpretation Comments Urine Clarity (test code = 92083-5) SL CLOUDY CLEAR H [facility]ufkinUrine Specific Wpphhpg2046-39-97 12:43:00 * Test Item Value Reference Range Interpretation Comments Urine Specific University (test code = 5811-5) 1.025 1.010-1.[address] [facility]kinUrine cX7561-52-26 12:43:00* Test Item Value Reference Range Interpretation Comments Urine pH (test code = 30121-6) 6 5-7 [facility]kinUrine Leukocyte Dhmoakaq2531-68-24 12:43:00* Test Item Value Reference Range Interpretation Comments Urine Leukocyte Esterase (test code = 5799-2) MODERATE NEGATIVE [facility]kinUrine Prxpkkv9516-89-96 12:43:00* Test Item Value Reference Range Interpretation Comments Urine Nitrite (test code = 82431-2) NEGATIVE NEGATIVE [facility]kinUrine Xcvkkdr3155-24-94 12:43:00* Test Item Value Reference Range Interpretation Comments Urine Protein (test code = 5804-0) 2+ NEGATIVE H [facility] Glucose (UA)2019-07-11 12:43:00* Test Item Value Reference Range Interpretation Comments Urine Glucose (UA) (test code = 2349-9) 1+ NEGATIVE H [facility] Wxujpgd8142-37-03 12:43:00* Test Item Value Reference Range Interpretation Comments Urine Ketones (test code = 72655-5) NEGATIVE NEGATIVE [facility] Seoikeirvmbb5674-95-86 12:43:00* Test Item Value Reference Range Interpretation Comments Urine Urobilinogen (test code = 01073-9) 0.2 0.2-1 [facility] Mnrnjudbf0956-30-02 12:43:00* Test Item Value Reference Range Interpretation Comments Urine Bilirubin (test code = 1978-6) SMALL NEGATIVE [facility] Ypzdm0269-91-52 12:43:00* Test Item Value Reference Range Interpretation Comments Urine Blood (test code = 54275-8) MODERATE NEGATIVE [facility] Fvdji3682-58-79 12:43:00* Test Item Value Reference Range Interpretation Comments Urine Color (test code = 5778-6) YELLOW YELLOW [facility] Dtyoevw5088-28-51 12:43:00* Test Item Value Reference Range Interpretation Comments Urine Clarity (test code = 68479-7) SL CLOUDY CLEAR H [facility]kinUrine Specific Xejiguf5080-71-82 12:43:00 * Test Item Value Reference Range Interpretation Comments Urine Specific University (test code = 5811-5) 1.025 1.010-1.[address] [facility]kinUrine iC5931-98-77 12:43:00* Test Item Value Reference Range Interpretation Comments Urine pH (test code = 62404-6) 6 5-7 [facility]kinUrine Leukocyte Zkijzgoz3824-21-58 12:43:00* Test Item Value Reference Range Interpretation Comments Urine Leukocyte Esterase (test code = 5799-2) MODERATE NEGATIVE [facility]kinUrine Zhyxcxc3327-13-67 12:43:00* Test Item Value Reference Range Interpretation Comments Urine Nitrite (test code = 47887-6) NEGATIVE NEGATIVE [facility]kinUrine Vmepfri3749-99-55 12:43:00* Test Item Value Reference Range Interpretation Comments Urine Protein (test code = 5804-0) 2+ NEGATIVE H [facility]kinUrine Glucose (UA)2019-07-11 12:43:00* Test Item Value Reference Range Interpretation Comments Urine Glucose (UA) (test code = 2349-9) 1+ NEGATIVE H [facility]kinUrine Htgnrtd8189-44-39 12:43:00* Test Item Value Reference Range Interpretation Comments Urine Ketones (test code = 45179-5) NEGATIVE NEGATIVE [facility]kinUrine Djwunrhefusj9404-64-29 12:43:00* Test Item Value Reference Range Interpretation Comments Urine Urobilinogen (test code = 98230-2) 0.2 0.2-1 [facility]kinUrine Ommvnihjn6198-27-03 12:43:00* Test Item Value Reference Range Interpretation Comments Urine Bilirubin (test code = 1978-6) SMALL NEGATIVE [facility]kinUrine Gtows3686-28-33 12:43:00* Test Item Value Reference Range Interpretation Comments Urine Blood (test code = 78031-2) MODERATE NEGATIVE [facility] LufkinInfluenza Virus Types A,B Antigen 2019-07-11 12:41:00* Test Item Value Reference Range Interpretation Comments Influenza Virus Types A,B Antigen (test code = 73033-2) NEGATIVE NEGATIVE [facility]kinMagnesium Kcftz4534-10-34 12:41:00* Test Item Value Reference Range Interpretation Comments Magnesium Level (test code = 14563-5) 2.0 1.3-2.1 [facility] LufkinGlobulin2019-12-12 12:41:00* Test Item Value Reference Range Interpretation Comments Globulin (test code = 97182-9) 3.9 2.3-3.[address] [facility]ufkinAlbumin/Globulin Euhoj0617-50-33 12:41:00 * Test Item Value Reference Range Interpretation Comments Albumin/Globulin Ratio (test code = 1759-0) 0.7 0.8-2.[address] [facility] LufkinCreatine Ousnor2151-62-28 12:41:00* Test Item Value Reference Range Interpretation Comments Creatine Kinase (test code = 2157-6) 97 30-200 [facility] LufkinGroup A Streptococcus Yvqurx6458-56-44 12:41:00* Test Item Value Reference Range Interpretation Comments Group A Streptococcus Screen (test code = 94522-3) NEGATIVE NEG ATIVE [facility] LufkinMagnesium Meujf8726-02-18 12:41:00* Test Item Value Reference Range Interpretation Comments Magnesium Level (test code = 67537-2) 2.0 1.3-2.1 [facility]ufkinGroup A Streptococcus Motmtb7381-02-86 12:41:00* Test Item Value Reference Range Interpretation Comments Group A Streptococcus Screen (test code = 96072-9) NEGATIVE NEG ATIVE [facility]ufkinProthrombin Kyvb6982-73-24 12:22:00* Test Item Value Reference Range Interpretation Comments Prothrombin Time (test code = 5902-2) 14.6 11.9-14.[address] [facility] LufkinProthromb Time International Ratio 2019-07-11 12:22:00* Test Item Value Reference Range Interpretation Comments Prothromb Time International Ratio (test code = 6301-6) 1.09 Oral Anticoagulant Therapy INR Values:1. Low Intensity Therapy 1.5 - 2.02 . Moderate Intensity Therapy 2.0 - 3.03. High Intensity Therapy(1) 2.5 - 3. 54. High Intensity Therapy(2) 3.0 - 4.05. Panic Value INR > 5.0 [facility] LufkinActivated Partial Thromboplast Time 2019-07-11 12:22:00* Test Item Value Reference Range Interpretation Comments Activated Partial Thromboplast Time (test code = 90771-5) 28.9 23.8-35.5 [facility]ufkinCHEST SINGLE (PORTABLE)2019-07-11 11:31:00 [place] [address] Patient Name: VIOLETTE LAMB MR #: [id number] : 1965 Age/Sex: 54/M Req #: [id number] Adm Physician: Ordered by: GERALDINE GIRON NP Report #: [id number] Location: ER Room/Bed: Procedure: DX/CHEST SINGLE (PORTABLE) [...] Interpretation Comments Magnesium Level (test code = 26673-9) 2.0 1.3-2.1 [facility] Mxs-qDmv2588-03-12 11:00:00* Test Item Value Reference Range Interpretation Comments B-Type Natriuretic Peptide (test code = 43010-2) 3663.2 0-100 [facility] Arlingtontreptococcus pyogenes antigen detection in enqhgg7210-78-69 11:00:00* Test Item Value Reference Range Interpretation Comments Group A Streptococcus Screen (test code = 16333-1) NEGATIVE NEG ATIVE [facility] Arlingtonerum or plasma magnesium measurement (mass/volume)2019-07-11 11:00:00* Test Item Value Reference Range Interpretation Comments Magnesium Level (test code = 00973-1) 2.0 1.3-2.1 [facility]2019-12-12 11:00:00* Test Item Value Reference Range Interpretation Comments B-Type Natriuretic Peptide (test code = 82318-0) 3663.2 0-100 [facility] Arlingtontreptococcus pyogenes antigen detection in bfhrro3177-11-92 11:00:00* Test Item Value Reference Range Interpretation Comments Group A Streptococcus Screen (test code = 28497-7) NEGATIVE NEG ATIVE [facility] Arlingtonerum or plasma magnesium measurement (mass/volume)2019-07-11 11:00:00* Test Item Value Reference Range Interpretation Comments Magnesium Level (test code = 52798-2) 2.0 1.3-2.1 [facility]2019-12-12 11:00:00* Test Item Value Reference Range Interpretation Comments B-Type Natriuretic Peptide (test code = 34243-5) 3663.2 0-100 [facility] Arlingtontreptococcus pyogenes antigen detection in aqdgga0702-84-44 11:00:00* Test Item Value Reference Range Interpretation Comments Group A Streptococcus Screen (test code = 87639-8) NEGATIVE NEG ATIVE [facility] Arlingtonerum or plasma magnesium measurement (mass/volume)2019-07-11 11:00:00* Test Item Value Reference Range Interpretation Comments Magnesium Level (test code = 86047-8) 2.0 1.3-2.1 [facility]2019-12-12 11:00:00* Test Item Value Reference Range Interpretation Comments B-Type Natriuretic Peptide (test code = 00161-4) 3663.2 0-100 [facility] Arlingtontreptococcus pyogenes antigen detection in vfkusj8391-68-33 11:00:00* Test Item Value Reference Range Interpretation Comments Group A Streptococcus Screen (test code = 46807-3) NEGATIVE NEG ATIVE [facility]ufkinUrine color fabqzzplwxlaq0941-87-77 10:51:00* Test Item Value Reference Range Interpretation Comments Urine Color (test code = 5778-6) YELLOW YELLOW [facility]ufkinUrine axqbpci4929-16-43 10:51:00* Test Item Value Reference Range Interpretation Comments Urine Clarity (test code = 52422-6) SL CLOUDY CLEAR [facility] Arlingtonpecific gravity of Urine by Test strip 2019-07-11 10:51:00* Test Item Value Reference Range Interpretation Comments Urine Specific University (test code = 5811-5) 1.025 1.010-1.[address] [facility]kinUrine pH measurement by automated test utsry6377-63-69 10:51:00* Test Item Value Reference Range Interpretation Comments Urine pH (test code = 78589-2) 6 5-7 [facility]ufkinUrine leukocyte esterase detection by swozapob6371-16-36 10:51:00* Test Item Value Reference Range Interpretation Comments Urine Leukocyte Esterase (test code = 5799-2) MODERATE NEGATIVE [facility]ufkinUrine nitrite ggsxvetve7914-45-06 10:51:00* Test Item Value Reference Range Interpretation Comments Urine Nitrite (test code = 75195-4) NEGATIVE NEGATIVE [facility]ufkinUrine protein measurement by test strip (mass/volume)2019-07-11 10:51:00* Test Item Value Reference Range Interpretation Comments Urine Protein (test code = 5804-0) 2+ NEGATIVE [facility]ufkinUrine glucose gguwpeqti6181-57-01 10:51:00* Test Item Value Reference Range Interpretation Comments Urine Glucose (UA) (test code = 2349-9) 1+ NEGATIVE [facility]kinUrine ketones detection by automated test miqni5335-20-18 10:51:00* Test Item Value Reference Range Interpretation Comments Urine Ketones (test code = 06281-5) NEGATIVE NEGATIVE [facility] LufkinUrine urobilinogen measurement by test strip (mass/volume)2019-07-11 10:51:00* Test Item Value Reference Range Interpretation Comments Urine Urobilinogen (test code = 12563-7) 0.2 0.2-1 [facility]kinUrine total bilirubin measurement (mass/volume)2019-07-11 10:51:00* Test Item Value Reference Range Interpretation Comments Urine Bilirubin (test code = 1978-6) SMALL NEGATIVE [facility]ufkinUrine erythrocytes avucncmac2023-56-96 10:51:00* Test Item Value Reference Range Interpretation Comments Urine Blood (test code = 89619-7) MODERATE NEGATIVE [facility]ufkinAutomated urine sediment leukocyte count by microscopy (number/high power field)2019-07-11 10:51:00* Test Item Value Reference Range Interpretation Comments Urine WBC (test code = 5821-4) 6-10 0-5 [facility]ufkinErythrocytes detection in urine sediment by light voestyruym5443-58-18 10:51:00* Test Item Value Reference Range Interpretation Comments Urine RBC (test code = 75520-5) 0-5 0-5 [facility]ufkinBacteria detection in urine sediment by light vxefcpcylu7266-23-79 10:51:00* Test Item Value Reference Range Interpretation Comments Urine Bacteria (test code = 98231-0) FEW NONE [facility] LufkinEpithelial cells detection in urine sediment by light iyyrrtmghu6324-80-85 10:51:00* Test Item Value Reference Range Interpretation Comments Urine Epithelial Cells (test code = 52762-7) FEW NONE [facility]kinUrine color zbfywfgvoaeni8860-51-32 10:51:00* Test Item Value Reference Range Interpretation Comments Urine Color (test code = 5778-6) YELLOW YELLOW [facility]kinUrine wvucwfr6002-96-40 10:51:00* Test Item Value Reference Range Interpretation Comments Urine Clarity (test code = 73034-2) SL CLOUDY CLEAR [facility] Arlingtonpecific gravity of Urine by Test strip 2019-07-11 10:51:00* Test Item Value Reference Range Interpretation Comments Urine Specific University (test code = 5811-5) 1.025 1.010-1.[address] [facility]kinUrine pH measurement by automated test orgjb1921-92-43 10:51:00* Test Item Value Reference Range Interpretation Comments Urine pH (test code = 28212-3) 6 5-7 [facility]kinUrine leukocyte esterase detection by brcvinro1566-17-30 10:51:00* Test Item Value Reference Range Interpretation Comments Urine Leukocyte Esterase (test code = 5799-2) MODERATE NEGATIVE [facility]kinUrine nitrite rhxvhrnks8276-78-44 10:51:00* Test Item Value Reference Range Interpretation Comments Urine Nitrite (test code = 36988-8) NEGATIVE NEGATIVE [facility]kinUrine protein measurement by test strip (mass/volume)2019-07-11 10:51:00* Test Item Value Reference Range Interpretation Comments Urine Protein (test code = 5804-0) 2+ NEGATIVE [facility]kinUrine glucose niaqopfik2356-31-43 10:51:00* Test Item Value Reference Range Interpretation Comments Urine Glucose (UA) (test code = 2349-9) 1+ NEGATIVE [facility]ufkinUrine ketones detection by automated test dtxvx3876-08-82 10:51:00* Test Item Value Reference Range Interpretation Comments Urine Ketones (test code = 76280-3) NEGATIVE NEGATIVE [facility] LufkinUrine urobilinogen measurement by test strip (mass/volume)2019-07-11 10:51:00* Test Item Value Reference Range Interpretation Comments Urine Urobilinogen (test code = 29746-2) 0.2 0.2-1 [facility] total bilirubin measurement (mass/volume)2019-07-11 10:51:00* Test Item Value Reference Range Interpretation Comments Urine Bilirubin (test code = 1978-6) SMALL NEGATIVE [facility] erythrocytes [id number] 10:51:00* Test Item Value Reference Range Interpretation Comments Urine Blood (test code = 55319-6) MODERATE NEGATIVE [facility]kinAutomated urine sediment leukocyte count by microscopy (number/high power field)2019-07-11 10:51:00* Test Item Value Reference Range Interpretation Comments Urine WBC (test code = 5821-4) 6-10 0-5 [facility]kinErythrocytes detection in urine sediment by light [id number] 10:51:00* Test Item Value Reference Range Interpretation Comments Urine RBC (test code = 95515-7) 0-5 0-5 [facility]kinBacteria detection in urine sediment by light [id number] 10:51:00* Test Item Value Reference Range Interpretation Comments Urine Bacteria (test code = 40362-6) FEW NONE [facility]kinEpithelial cells detection in urine sediment by light [id number] 10:51:00* Test Item Value Reference Range Interpretation Comments Urine Epithelial Cells (test code = 98398-3) FEW NONE [facility] color [id number] 10:51:00* Test Item Value Reference Range Interpretation Comments Urine Color (test code = 5778-6) YELLOW YELLOW [facility]kinUrine [id number] 10:51:00* Test Item Value Reference Range Interpretation Comments Urine Clarity (test code = 70537-2) SL CLOUDY CLEAR [facility] Arlingtonpecific gravity of Urine by Test strip 2019-07-11 10:51:00* Test Item Value Reference Range Interpretation Comments Urine Specific University (test code = 5811-5) 1.025 1.010-1.[address] [facility] pH measurement by automated test [id number] 10:51:00* Test Item Value Reference Range Interpretation Comments Urine pH (test code = 17237-7) 6 5-7 [facility] leukocyte esterase detection by [id number] 10:51:00* Test Item Value Reference Range Interpretation Comments Urine Leukocyte Esterase (test code = 5799-2) MODERATE NEGATIVE [facility] nitrite ifgflscmc4343-94-55 10:51:00* Test Item Value Reference Range Interpretation Comments Urine Nitrite (test code = 62311-5) NEGATIVE NEGATIVE [facility] protein measurement by test strip (mass/volume)2019-07-11 10:51:00* Test Item Value Reference Range Interpretation Comments Urine Protein (test code = 5804-0) 2+ NEGATIVE [facility] glucose [id number] 10:51:00* Test Item Value Reference Range Interpretation Comments Urine Glucose (UA) (test code = 2349-9) 1+ NEGATIVE [facility] ketones detection by automated test [id number] 10:51:00* Test Item Value Reference Range Interpretation Comments Urine Ketones (test code = 66113-5) NEGATIVE NEGATIVE [facility]rine urobilinogen measurement by test strip (mass/volume)2019-07-11 10:51:00* Test Item Value Reference Range Interpretation Comments Urine Urobilinogen (test code = 95860-4) 0.2 0.2-1 [facility] total bilirubin measurement (mass/volume)2019-07-11 10:51:00* Test Item Value Reference Range Interpretation Comments Urine Bilirubin (test code = 1978-6) SMALL NEGATIVE [facility] erythrocytes [id number] 10:51:00* Test Item Value Reference Range Interpretation Comments Urine Blood (test code = 94181-1) MODERATE NEGATIVE [facility]kinAutom[facility] urine sediment leukocyte count by microscopy (number/high power field)2019-07-11 10:51:00* Test Item Value Reference Range Interpretation Comments Urine WBC (test code = 5821-4) 6-10 0-5 [facility]kinErythrocytes detection in urine sediment by light [id number] 10:51:00* Test Item Value Reference Range Interpretation Comments Urine RBC (test code = 63465-7) 0-5 0-5 [facility]kinBacteria detection in urine sediment by light mumositjms2373-57-50 10:51:00* Test Item Value Reference Range Interpretation Comments Urine Bacteria (test code = 39690-9) FEW NONE [facility]kinEpithelial cells detection in urine sediment by light wxwnasgnjj1279-73-30 10:51:00* Test Item Value Reference Range Interpretation Comments Urine Epithelial Cells (test code = 24329-0) FEW NONE [facility]Urine color lpefapguserdm1467-19-00 10:51:00* Test Item Value Reference Range Interpretation Comments Urine Color (test code = 5778-6) YELLOW YELLOW [facility]kinUrine [id number] 10:51:00* Test Item Value Reference Range Interpretation Comments Urine Clarity (test code = 50267-5) SL CLOUDY CLEAR [facility] Arlingtonpecific gravity of Urine by Test strip 2019-07-11 10:51:00* Test Item Value Reference Range Interpretation Comments Urine Specific University (test code = 5811-5) 1.025 1.010-1.[address] [facility] pH measurement by automated test [id number] 10:51:00* Test Item Value Reference Range Interpretation Comments Urine pH (test code = 78397-0) 6 5-7 [facility]kinUrine leukocyte esterase detection by guijqeqy1270-71-60 10:51:00* Test Item Value Reference Range Interpretation Comments Urine Leukocyte Esterase (test code = 5799-2) MODERATE NEGATIVE [facility]Urine nitrite [id number] 10:51:00* Test Item Value Reference Range Interpretation Comments Urine Nitrite (test code = 49670-9) NEGATIVE NEGATIVE [facility] protein measurement by test strip (mass/volume)2019-07-11 10:51:00* Test Item Value Reference Range Interpretation Comments Urine Protein (test code = 5804-0) 2+ NEGATIVE [facility]Urine glucose oziogblvi8631-39-49 10:51:00* Test Item Value Reference Range Interpretation Comments Urine Glucose (UA) (test code = 2349-9) 1+ NEGATIVE [facility]kinUrine ketones detection by automated test qkjjj6414-87-01 10:51:00* Test Item Value Reference Range Interpretation Comments Urine Ketones (test code = 62167-9) NEGATIVE NEGATIVE [facility]kinUrine urobilinogen measurement by test strip (mass/volume)2019-07-11 10:51:00* Test Item Value Reference Range Interpretation Comments Urine Urobilinogen (test code = 59040-2) 0.2 0.2-1 [facility] total bilirubin measurement (mass/volume)2019-07-11 10:51:00* Test Item Value Reference Range Interpretation Comments Urine Bilirubin (test code = 1978-6) SMALL NEGATIVE [facility]kinUrine erythrocytes iwsxpmira3935-35-12 10:51:00* Test Item Value Reference Range Interpretation Comments Urine Blood (test code = 43055-2) MODERATE NEGATIVE [facility]kinAutomated urine sediment leukocyte count by microscopy (number/high power field)2019-07-11 10:51:00* Test Item Value Reference Range Interpretation Comments Urine WBC (test code = 5821-4) 6-10 0-5 [facility]kinErythrocytes detection in urine sediment by light fppbtufqnr4766-43-06 10:51:00* Test Item Value Reference Range Interpretation Comments Urine RBC (test code = 77771-9) 0-5 0-5 [facility]kinBacteria detection in urine sediment by light qzwutfvxfv7066-15-66 10:51:00* Test Item Value Reference Range Interpretation Comments Urine Bacteria (test code = 65234-7) FEW NONE [facility]kinEpithelial cells detection in urine sediment by light [id number] 10:51:00* Test Item Value Reference Range Interpretation Comments Urine Epithelial Cells (test code = 93417-3) FEW NONE [facility] Arlingtonodium Ofhvu8215-22-89 15:21:00* Test Item Value Reference Range Interpretation Comments Sodium Level (test code = 2951-2) 137 136-145 [facility]kinPotassium Hnqoe5467-44-88 15:21:00* Test Item Value Reference Range Interpretation Comments Potassium Level (test code = 2823-3) 3.8 3.5-5.1 [facility]kinChloride Honoj5625-50-14 15:21:00* Test Item Value Reference Range Interpretation Comments Chloride Level (test code = 2075-0) 97 98-[address] [facility]kinCarbon Dioxide Rgchu4330-60-71 15:21:00* Test Item Value Reference Range Interpretation Comments Carbon Dioxide Level (test code = 2028-9) 29 22-29 [facility] LufkinAnion [id number] 15:21:00* Test Item Value Reference Range Interpretation Comments Anion Gap (test code = 27776-0) 14.8 8-16 [facility]kinBlood Urea [id number] 15:21:00* Test Item Value Reference Range Interpretation Comments Blood Urea Nitrogen (test code = 3094-0) 28 7-[address] [facility] LufkinCreatinine2019-11-18 15:21:00* Test Item Value Reference Range Interpretation Comments Creatinine (test code = 2160-0) 4.43 0.72-1.[address] [facility]kinBUN/Creatinine Uoais1223-17-90 15:21:00* Test Item Value Reference Range Interpretation Comments BUN/Creatinine Ratio (test code = 3097-3) 6 6-25 [facility] LufkinEstimat Glomerular Filtration Rate 2019-06-17 15:21:00* Test Item Value Reference Range Interpretation Comments Estimat Glomerular Filtration Rate (test code = 470351415) 14 >60 L Ranges were taken from the National Kidney Disease Education Program and the [facility] literature.Reference ranges:60 or greater: Gzfkkh54-02 ( for 3 consecutive months): Chronic kidney disease 15 or less: Kidney failureSt. Luke's Health – Memorial LufkinGlucose Gcymu2058-14-03 15:21:00* Test Item Value Reference Range Interpretation Comments Glucose Level (test code = MGO5832) 125 74-[address] [facility]ufkinCalcium Lhxrq4779-04-25 15:21:00* Test Item Value Reference Range Interpretation Comments Calcium Level (test code = 72978-8) 9.2 8.4-10.2 [facility]
[2020-01-03] MEDS ORDERED: NIFEDIPINE ER30 MG PO (17:07)
[2020-01-03] MEDS ORDERED: FUROSEMIDE40 MG PO (17:07)
[2020-01-03] MEDS ORDERED: ATORVASTATIN CA20 MG PO (17:07)
[2020-01-03 18:39] VITALS: BP 119/59
--- NOTE | 2020-01-03 18:59 | NUR ---
Patient arrived from ER. Patient has bilateral 18g IVs. Patient is blind and was assisted to bed. Dr. Thomas was called and he consulted Dr. Ley. Dr. Ley talked to this marine underwriter and gave new orders. New orders were placed. This marine underwriter gave report to oncoming nurse and patient is aware of plan of care. Addendum: 01/03/20 at 1905 by Ramonita Martino RN Dr. Ley ordered 1 unit of blood to be given tonight. He ordered for the other 2 units of blood to be given TOMORROW, 01/03 with dialysis. Oncoming nurse aware, updated lab order for 3 units total.
--- NOTE | 2020-01-03 19:32 | NUR ---
Patient leaving unit for CT.
--- NOTE | 2020-01-03 19:35 | NUR ---
Called lab and confirmed that patient will be receiving 1 unit of blood tonight and 2 units tomorrow with hemodialysis, for a total of 3 units. Per lab, type and cross has already been done.
--- NOTE | 2020-01-03 19:43 | NUR ---
Called patient's brother (Stefan) and verified home medications.
[2020-01-03 20:00] VITALS: BP 125/64
--- NOTE | 2020-01-03 20:30 | NUR ---
Patient resting quietly in bed, respirations even and unlabored, vital signs stable, no s/s of distress at this time. Patient and family made aware of plan for blood transfusion tonight. Patient verbalized understanding. Will continue to monitor.
[2020-01-03] MEDS ORDERED: CEFDINIR300 MG PO (20:32)
[2020-01-03 20:38] VITALS: BP 125/64
--- NOTE | 2020-01-03 20:46 | NUR ---
Paged Dr. Thomas to ask if he wants to continue patient's home meds. Awaiting return call at this time.
[2020-01-03 20:50] VITALS: BP 125/64
--- NOTE | 2020-01-03 20:54 | NUR ---
Spoke to Dr. Thomas and informed him on plan of care, i.e. 1 unit of blood tonight and 2 units of blood tomorrow with dialysis. Per Dr. Thomas, he will review home meds later. Notified him that patient's blood glucose level is 233. Received orders to put patient on low dose insulin sliding scale.
[2020-01-03] MEDS ORDERED: DEXTROSE 50% SYRINGE 50 ML IV PRN (21:00)
[2020-01-03] MEDS: INSULIN REGULAR, HUMAN 100 UNIT/1 ML 3ML VIAL SQ SCH (21:24)
--- NOTE | 2020-01-03 21:51 | Diagnostic Imaging Report ---
EXAM: CT Abdomen and Pelvis WITHOUT contrast INDICATION: Gastrointestinal bleeding. COMPARISON: 07/12/2019. TECHNIQUE: Abdomen and pelvis were scanned utilizing a multidetector helical scanner from the lung base to the pubic symphysis without administration of IV contrast. Absence of intravenous contrast decreases sensitivity for detection of focal lesions and vascular pathology. Coronal and sagittal reformations were obtained. Routine protocol was performed. IV CONTRAST: None. ORAL CONTRAST: Water RADIATION DOSE: Total DLP: ... mGy*cm Estimated effective dose: (DLP x 0.015 x size factor) mSv COMPLICATIONS: None FINDINGS: LINES and TUBES: Distal tip of a central venous catheter is identified in the high right atrium. LOWER THORAX: Bilateral trace pleural effusions appear decreases the prior exam. Bibasilar subsegmental atelectasis. 7.5 mm groundglass nodule in the lung base laterally on image 80 series 2, previously measured 5 mm. The heart is mildly enlarged. Multi vessel coronary artery calcifications. HEPATOBILIARY: No focal hepatic lesions. No biliary ductal dilation. GALLBLADDER: No radio-opaque stones or sludge. No wall thickening. SPLEEN: Enlarged measuring 14.9 cm in craniocaudal dimension. PANCREAS: No focal masses or ductal dilatation. ADRENALS: No adrenal nodules KIDNEYS/URETERS: No hydronephrosis. No cystic or solid mass lesions. No stones. GI TRACT: No abnormal distention, wall thickening, or evidence of bowel obstruction. Appendix is normal. PELVIC ORGANS/BLADDER: The prostate is mildly enlarged measuring 5.0 cm in transverse dimension. LYMPH NODES: Mildly prominent bilateral inguinal lymph nodes again observed, the largest on the right measuring 1.4 cm in short axis. VESSELS: There is moderate atherosclerotic disease in the aorta and major arterial branches. PERITONEUM / RETROPERITONEUM: Mild interval increase in volume of moderate ascites. BONES: Unremarkable. SOFT TISSUES: Bilateral small fat-containing inguinal hernias. Previously present anasarca has resolved. IMPRESSION: 1. Mild interval increase in moderate volume ascites. 2. Mild splenomegaly again observed. 3. Interval resolution of anasarca. 4. Bilateral small pleural effusions appear decreased. Signed by: Dr. Ricki Handley M.D. on 01/03/2020 9:48 PM
[2020-01-03] MEDS ORDERED: SODIUM CHLORIDE 0.9% 250ML 250 ML ONE (22:49)
--- NOTE | 2020-01-03 23:21 | NUR ---
Patient seen and evaluated, Events noted Reason for hospitalization: Severe anemia. Generalized History of present illness: 54-year-old gentleman who was referred to the emergency room department with extremely low hemoglobin of 6.0. The patient been complaining of general malaise and weakness. The patient denies having chest pain or shortness of breath. He is known to have a history of end-stage renal disease. He had hemodialysis earlier during the day and was referred to the emergency room department for further evaluation and treatment. The patient cannot tell who his client account representative is. There is been no history of fever chills. Stated that he was recently seen by his wood grainer Dr. Fowler a few days ago. Has not had recent GI work-up. He is legally blind. I went ahead and consulted nephrology is and perfusion over unit of packed red blood cells was ordered. Past medical history: End-stage renal disease, diabetes, hypertension. Legally blind. No myocardial infarction. No CVA in the past. No pulmonary issues. Social History Smoking Cessation: Never Smoker Alcohol Use: None Any Illegal Drug Use: No TB Exposure/Symptoms: No Physically hurt or threatened: No Family History Family history of heart diseas: No Reported Medications Lisinopril (LISINOPRIL) 10 Mg Tablet, 20 MG PO DAILY, #30 TAB 07/11/19 Tamsulosin Hcl* (FLOMAX*) 0.4 Mg Cap, 0.4 MG PO DAILY, #30 CAP 07/11/19 Carvedilol (CARVEDILOL) 12.5 Mg Tablet, 25 MG PO BID, #60 TAB 07/11/19 Metformin Hcl (METFORMIN HCL) 500 Mg Tablet, 500 MG PO DAILY, #60 TAB Allergies: No known drug allergies. Review of Systems Constitutional: as per HPI, malaise, weakness EENTM: no symptoms Cardiovascular: no symptoms Respiratory: no symptoms Gastrointestinal: no symptoms Genitourinary: no symptoms Musculoskeletal: no symptoms Neurological: no symptoms Psychological: no symptoms Endocrine: no symptoms Hematological/Lymphatic: no symptoms Review of other systems All other systems reviewed and negative. Physical exam: Patient alert oriented person time place. Patient no distress. Vital signs blood pressure 139/73, respiration 18, pulse 70, temperature 95.9 HEENT: No gross abnormalities Neck: Supple no JVD Lungs: Clear to auscultation Heart: Regular rate and rhythm, no murmurs no gallops Abdomen: Soft non tender, no guarding. Extremities: No edema Neurologic: Alert oriented 3, no focal weakness. Psychiatrist: Normal mood, normal judgment. Skin: No rashes Lab data: Hemoglobin 6.1, WBC 6.35, platelet count 229,000, Sodium 139, potassium 3.4, chloride 101, CO2 28, BUN 17, creatinine 2.26, blood sugar 116 12 Lead ECG Interpretation Acid Bleacher: Interpreted by ED physician Rhythm: sinus rhythm QRS axis: normal Clinical Impression: normal ECG Assessment: Anemia, unspecified Generalized weakness End-stage renal disease Diabetes mellitus type 2 Hypertension BPH Nearly blind Plan of care: 1. Transfusion of packed red blood cells. 2. Consult nephrology. 3. Consult GI. 4. Reconcile home medications. 5.Monitor blood pressure and pulse 6. Monitor labs
--- NOTE | 2020-01-03 23:22 | NUR ---
Started blood transfusion at 2302. Vital signs stable from baseline, no s/s of distress at this time. Patient tolerating well. Will continue to monitor.
--- NOTE | 2020-01-03 23:57 | NUR ---
Dr. Thomas here to see patient. Received orders to change GI consult to Dr. Chadwick because patient is known to him. Dr. Thomas speaking with Dr. Chadwick on the phone and discussing plan of care.
--- NOTE | 2020-01-04 00:05 | NUR ---
Per Dr. Thomas, he spoke with Dr. Fowler and they decided to change the GI consult back to Dr. Alice Boone.
--- NOTE | 2020-01-04 00:26 | NUR ---
Informed Dr. Thomas that patient's home meds have been entered into the chart. Per MD he will review them later.
[2020-01-04 00:29] VITALS: BP 122/62
--- NOTE | 2020-01-04 00:47 | NUR ---
Called [facility] and confirmed that Dr. Ley would like patient to receive 2 units of blood with hemodialysis.
--- NOTE | 2020-01-04 02:56 | NUR ---
Dr. Alice Boone on unit and clarified consult. No new orders received at this time.
--- NOTE | 2020-01-04 03:16 | NUR ---
Dr. Alice Boone at bedside. Patient c/o nasal congestion. Received orders for Afrin.
[2020-01-04 05:04] VITALS: BP 135/68
[2020-01-04 06:58] LABS: ALBUMIN 2.7 g/dL (3.5-5.0); ALBUMIN/GLOBULIN RATIO 0.6 (0.8-2.0); ANION GAP 15.1 mmol/L (8-16); CALCIUM 8.6 mg/dL (8.4-10.2); CREATININE, SERUM 3.17 mg/dL (0.72-1.25); POTASSIUM 4.1 mmol/L (3.5-5.1)
[2020-01-04] MEDS: INSULIN REGULAR, HUMAN 100 UNIT/1 ML 3ML VIAL SQ SCH ×3 (07:30→16:45)
[2020-01-04 08:00] VITALS: BP 136/67
[2020-01-04] MEDS ORDERED: SODIUM CHLORIDE 0.9% 1000ML 2,000 ML ONE (08:45)
[2020-01-04] MEDS ORDERED: OXYMETAZOLINE HCL 0.05% NAS 1 SPRAY BTL SCH (09:00)
[2020-01-04] MEDS ORDERED: FUROSEMIDE 40 MG TAB PO SCH (09:00)
[2020-01-04] MEDS ORDERED: NIFEDIPINE 30 MG PO SCH (09:00)
[2020-01-04] MEDS ORDERED: SODIUM CHLORIDE 0.9% 250ML 250 ML ONE (09:53)
[2020-01-04] MEDS ORDERED: EPOETIN ALFA-EPBX 10,000 UNIT/ML VIAL SC SCH (10:30)
[2020-01-04] MEDS ORDERED: HEPARIN SOD (PORCINE) 1000 UNIT/ML SDV IV PRN (11:45)
[2020-01-04 12:00] VITALS: BP 153/72
--- NOTE | 2020-01-04 15:04 | Consultation ---
DATE OF CONSULTATION: 01/04/2020 Nephrology Consultation Note REASON FOR CONSULTATION: ESRD. REFERRING PHYSICIAN: ER physician. HISTORY OF PRESENT ILLNESS: This is a 54-year-old gentleman with past medical history of ESRD on hemodialysis on Monday, Monday, Monday schedule through right chest PermaCath with last dialysis yesterday, hypertension, diabetes, status post right PermCath placement, was admitted by his PCP for low hemoglobin, requiring transfusion. His hemoglobin was noted to be 6.1. At the time of examination, he appeared in no acute distress and denied any headache, nausea, vomiting, chest pain, shortness of breath, cough, phlegm, abdominal pain, diarrhea, bleeding in the stool or any focal weakness. PAST MEDICAL HISTORY: As above. SOCIAL HISTORY: No history of alcohol or tobacco. MEDICATIONS: See the medication sheet that was reviewed. PHYSICAL EXAMINATION: GENERAL: He appeared in no acute distress. VITAL SIGNS: Blood pressure 136/67, respirations 17, heart rate 71, temperature 97. HEENT: Head was atraumatic, normocephalic. Pupils are reactive to light. NECK: Supple. CHEST: Revealed fair air entry. HEART: S1, S2. ABDOMEN: Soft. Bowel sounds are positive. EXTREMITIES: No edema. TRANSITION SPECIALIST: He was awake and alert. Cranial nerves were intact. There was no gross motor deficits noted. LABORATORY DATA: White cell count 6.3, hemoglobin 6.1, hematocrit 19.2, platelets 229. Sodium 138, potassium 4.1, chloride 100, CO2 27, BUN 24, creatinine 3.1, glucose 109. CT of the abdomen and pelvis revealed mild splenomegaly, mild interval increase in moderate volume ascites, bilateral small pleural effusions . IMPRESSION: 1. End-stage renal disease on hemodialysis on a Monday, Monday, Monday schedule with no evidence of volume overload or hyperkalemia. 2. Profound anemia of unclear etiology, suspect GI bleed? 3. Stable electrolyte, metabolic profile and volume status. 4. On dialysis now. Plan strict I and Os, Epogen 10,000 units subcu after dialysis. On dialysis for 3 hours with 2 units of packed RBCs to be transfused on dialysis. CBC, BMP in a.m. Further recommendations to follow. Thank you for the consultation. Greta Jay MD SA/FIDENCIO /[id number]
--- NOTE | 2020-01-04 15:09 | Diagnostic Imaging Report ---
EXAM: US ABDOMEN COMPLETE DATE: 01/04/2020 2:16 PM INDICATION: Ascites. COMPARISON: CT abdomen/pelvis 01/03/2020. TECHNIQUE: Transverse and longitudinal goldberg scale and color doppler sonographic images of the abdomen were obtained. FINDINGS: LIVER 20.1 cm in the right midclavicular line. Normal echogenicity of the liver with normal contour, no masses. SPLEEN 13.3 cm in maximum diameter. Normal echogenicity, no masses. GALLBLADDER Partially decompressed. No gallbladder distention, stone, or pericholecystic fluid. Mild wall thickening measuring 0.4 cm. Minimal sludge. Negative reported sonographic Fnoseca's sign. BILE DUCTS No intra nor extra-hepatic biliary dilation. Common bile duct measures 0.4 cm PANCREAS: Not visualized due to overlying bowel gas. RIGHT KIDNEY: cm Echogenicity: Normal Collecting System: No hydronephrosis Stones: None Cyst/Mass: None LEFT KIDNEY: cm Echogenicity: Normal Collecting System: No hydronephrosis Stones: None Cyst/Mass: None VESSELS: Aorta: Not visualized due to overlying bowel gas. Inferior Vena Cava: Visualized portions are normal Main Portal Vein: 1.4 cm, normal size with hepatopetal flow. FREE FLUID: Small volume right upper quadrant ascites. IMPRESSION: Hepatosplenomegaly with small volume right upper quadrant ascites. Mild gallbladder wall thickening with minimal sludge. No specific evidence of cholecystitis. Suggest clinical correlation. Signed by: Dr. Navarro Sapp MD on 01/04/2020 3:06 PM
[2020-01-04 15:16] LABS: BASOPHILS % 0.5 % (0.0-1.0); EOSINOPHILS % 1.6 % (0.0-6.0); HEMATOCRIT 25.8 % (38.2-49.6); HEMOGLOBIN 8.4 g/dL (14.0-18.0); LYMPHOCYTES # (AUTO) 0.5 (1.0-3.2); LYMPHOCYTES % 6.7 % (18.0-39.1); MEAN CORPUSCULAR HEMOGLOBIN 31.8 pg (28-32); MEAN CORPUSCULAR HGB CONC 32.6 g/dL (31-35); MEAN CORPUSCULAR VOLUME 97.7 fL (81-99); MONOCYTES % 9.3 % (4.4-11.3); NEUTROPHILS # (AUTO) 6.1 (2.1-6.9); NEUTROPHILS % 81.4 % (38.7-80.0); PLATELET COUNT 210 x10e3/uL (140-360); RED BLOOD COUNT 2.64 x10e6/uL (4.3-5.7); RED CELL DISTRIBUTION WIDTH 16.1 % (11.7-14.4)
[2020-01-04 15:17] LABS: EOSINOPHILS # (AUTO) 0.1 (0.0-0.4); MONOCYTES # (AUTO) 0.7 (0.2-0.8)
[2020-01-04 16:00] VITALS: BP 145/71
[2020-01-04 16:05] LABS: LYMPHOCYTES % (MANUAL) 6 % (19-48); MONOCYTES % (MANUAL) 6 % (3.4-9.0); NEUTROPHILS % (MANUAL) 88 % (40-74); PLATELET ESTIMATE ADEQUATE; PLATELET MORPHOLOGY COMMENT NORMAL; RBC MORPHOLOGY COMMENT NORMAL
--- NOTE | 2020-01-04 16:29 | NUR ---
Assisted patient to restroom, denies any pain, no distress, keep monitoring
[2020-01-04] MEDS ORDERED: TAMSULOSIN HCL 0.4 MG CAP PO SCH (17:00)
--- NOTE | 2020-01-04 19:14 | NUR ---
Patient discharged home in stable condition, no s/s of distress.
--- NOTE | 2020-01-04 20:41 | Discharge Summary ---
FINAL DIAGNOSES: 1. Anemia unclear etiology, likely related to the patient's chronic renal failure. 2. Possible liver cirrhosis. 3. End-stage renal disease. HOSPITAL COURSE: The patient was admitted to the hospital with a history of feeling weak and having anemia, HGB 6.1. The patient was given 3 units of packed red blood cells, has done well. Hemoglobin has come up to 8.0 or so. The patient has done well. Hence, he has been discharged in stable condition. GI consultation was requested with Dr. Boone who felt that in view of his stability and no evidence of GI bleeding, the patient could be discharged from GI standpoint in followup. The patient was seen by a pattern vault clerk and Dr. Epstein and did receive hemodialysis. He has been discharged in stable condition. He is to continue hemodialysis as advised. DIET: Renal diet. ACTIVITY LEVEL: As tolerated. CONDITION AT TIME OF DISCHARGE: Stable. MEDICATIONS: Per reconciliation list. DISPOSITION: Follow up with the patient's primary care physician. Also advised to follow up with renal. MD LOREN Stanley/FIDENCIO /[id number]
[2020-01-04] MEDS ORDERED: ATORVASTATIN 20 MG TAB PO SCH (21:00)
== END 2020-01-04 19:06 | disposition home or self-care (01) ==
LOC: ER 15:24 → ERHOLD 16:29 → MED/SURG3 17:25
PROVIDERS: ADMIT Internal Medicine; ATTEND Internal Medicine
DX: D64.9 Anemia, unspecified (principal); E11.22 Type 2 diabetes mellitus with diabetic chronic kidney disease; I12.0 Hypertensive chronic kidney disease with stage 5 chronic kidney disease or end stage renal disease; N18.6 End stage renal disease; Z99.2 Dependence on renal dialysis; H54.8 Legal blindness, as defined in USA; I25.10 Atherosclerotic heart disease of native coronary artery without angina pectoris; Z95.5 Presence of coronary angioplasty implant and graft; Z79.84 Long term (current) use of oral hypoglycemic drugs
CPT/HCPCS: 36415 ×2; 36430; 74176; 76700; 80053 ×2; 82607; 82728; 82746; 82948 ×2; 84080; 85025 ×2; 85045; 86850; 86900; 86920; 87635; 90935; 93005; 96372; 99284; G0378 ×2; J1644; J1817; J7030; J7050 ×2; P9016 ×2

== ENCOUNTER 2020-01-05 15:47 | Emergency (ER) | payer MEDICARE ==
[~2020-01-05] VITALS: Ht 177.8 cm; Wt 87.5 kg
[~2020-01-05 15:47] MED LIST changes: +ATORVASTATIN CA20 MG PO; +CEFDINIR300 MG PO; +FUROSEMIDE40 MG PO; +NIFEDIPINE ER30 MG PO
--- OUTSIDE RECORDS SUMMARY | 2020-01-05 15:52 | XMS REPORT | Continuity of Care Document ---
Author Author [facility] t Organization [facility] Address [address] [place] [address] Phone Unavailable Care Team Providers Care Betting Clerks Name Role Phone ADIN FAUSTIN PCP Flor FIELD Attphys Unavailable Prieto FAUSTIN MD Attphys Unavailable Alissa SALVADOR Attphys Unavailable CINDY ALVAREZ Attphys Unavailable Flor FIELD Admphys Unavailable Alissa SALVADOR Admphys Unavailable CINDY ALVAREZ Admphys Unavailable Payers Payer Name Policy Type Policy Number Effective Date Expiration Date [employer] [facility] Medicare Complete [id number] 2019 00:00:00 [facility] [id number] 2018 00:00:00 [facility] Problems Condition Name Condition Details Condition Category Status Onset Date Resolution Date Last Treatment Date Treating Clinician Comments Source Epistaxis Problem Active [facility] Allergies, Adverse Reactions, Alerts Allergy Name Allergy Type Status Severity Reaction(s) Onset Date Inacti ve Date Treating Clinician Comments Source No Known Allergies DA Active U 2019-10-07 00:00:00 [facility] No Known Allergies DA Active U 2019-09-09 00:00:00 [facility] Social History Social Habit Start Date Stop Date Quantity Comments Source Sex Assigned At 1965 00:00:00 1965 00:00:00 Male [facility] Medications Ordered Medication Name Filled Medication Name Start Date Stop Da te Current Medication? Ordering Clinician Indication Dosage Frequency Signature (SIG) Comments Components Source Atorvastatin Calcium Atorvastatin Calcium Yes 20 Bedtime [facility] Carvedilol Carvedilol Yes 12.5 Twice A Day [facility] Cefdinir (Omnicef) 300 Mg CAPSULE Cefdinir (Omnicef) 300 Mg CAPSULE Yes 300 Every 12 Hours [facility] Furosemide Furosemide Yes 40 Daily [facility] Lisinopril Lisinopril Yes 20 Daily [facility] Metformin Hcl Metformin Hcl Yes 1000 Bedtime [facility] Nifedipine (Nifedipine Er) 30 Mg TABLET.ER Nifedipine (Nifedipine Er) 30 Mg TABLET.ER Yes 30 Daily [facility] Tamsulosin Hcl (Flomax*) 0.4 Mg CAP Tamsulosin Hcl (Flomax*) 0.4 Mg C AP Yes .4 Daily@1700 [facility] Vital Signs Vital Name Observation Time Observation Value Comments Source Body Temperature 2020-01-04 16:00:00 97.9 [degF] [facility] Weight 2020-01-03 15:28:00 193 [lb_av] [facility] BMI (Body Mass Index) 2020-01-03 15:28:00 27.7 kg/m2 [facility] Weight 2019-12-29 11:33:00 193 [lb_av] [facility] BMI (Body Mass Index) 2019-12-29 11:33:00 27.7 kg/m2 [facility] Weight 2019-12-26 08:25:00 193 [lb_av] [facility] BMI (Body Mass Index) 2019-12-26 08:25:00 27.7 kg/m2 [facility] Weight 2019-12-25 09:38:00 193 [lb_av] [facility] BMI (Body Mass Index) 2019-12-25 09:38:00 27.7 kg/m2 [facility] Weight 2019-12-23 10:48:00 193 [lb_av] [facility] BMI (Body Mass Index) 2019-12-23 10:48:00 27.7 kg/m2 [facility] Body Temperature 2019-10-23 12:00:00 97.6 [degF] [facility] Procedures Procedure Date / Time Performed Performing Clinician [facility] e US abdomen complete 2020-01-04 00:00:[address] [facility] CT of abdomen and pelvis without contrast 2020-01-03 00:00:00 [facility] CONTROL OF NOSEBLEED 2019-12-29 00:00:00 [facility] US abdomen complete 2019-12-26 00:00:00 [facility] US Abdomen limited 2019-10-22 00:00:00 YAJAIRA GRAMAJO [facility] TRANSFUSE NONAUT RED BLOOD CELLS IN PERIPH VEIN, PERC 2019-10-18 00:00:00 [facility] PERFORMANCE OF URINARY FILTRATION, <6 HRS/DAY 2019-10-18 00:00:0 0 [facility] CONTROL BLEEDING IN NASAL MUCOSA AND SOFT TISSUE, ENDO 2019-09-30 0 00:00:00 [facility] Computed tomography of chest without contrast 2019-07-12 00:00:0 0 CINDY ALVAREZ [facility] PERFORMANCE OF URINARY FILTRATION, <6 HRS/DAY 2019-07-12 00:00:0 [address] [facility] [address] of abdomen and pelvis without contrast 2019-07-12 00:00:00 [facility] Plan of Care Planned Activity Planned Date Details Comments Source Instructions Anemia [facility] Encounters Start Date/Time End Date/Time Encounter Type Admission Type Attendi [facility] Care Department Encounter ID Source 2020-01-03 16:29:00 2020-01-04 19:06:00 Discharged Inpatient (obs) [address] [facility] [id number] [facility]ICKI [facility] 2019-12-29 10:51:00 2019-12-29 12:17:[address] [facility] [id number] [facility] 2019-12-26 08:15:00 2019-12-26 10:08:[address] [facility] [id number] [facility] 2019-12-26 07:33:00 2019-12-26 07:33:00 Registered Clinic [address] [facility] [id number] [facility] 2019-12-25 09:16:00 2019-12-25 09:50:[address] [facility] [id number] [facility] 2019-12-23 10:09:00 2019-12-23 11:07:[address] [facility] [id number] [facility] 2019-10-18 22:29:00 2019-10-23 15:50:00 Discharged Inpatient [address] [facility] [id number] [facility] 2019-09-24 15:47:00 2019-09-24 15:47:00 Outpatient [facility] [address] [place] [address] 2019-08-07 07:54:00 2019-08-07 07:54:[address] [facility] [id number] [facility] 2019-07-12 08:43:00 2019-07-17 17:30:00 Discharged Inpatient [address] [facility] [id number] [facility] 2019-06-17 13:10:00 2019-06-17 16:32:00 Departed Emergency Room [facility] [place] [id number] [facility] Results Test Description Test Time Test Comments Results Result Comments Source Capillary blood glucose measurement by glucometer (mas s/volume) 2020-01-04 16:13:00 Test Item Bedside Glucose (test code = 11627-1) 185 70-120 Meter ID: [id number] Health Hospital [facility]fieldUS ABDOMEN COMPLETE 2020-01-04 15:03:00 [facility] [address] [address] Patient Name: VIOLETTE LAMB MR #: [id number] : 1965 Age/Sex: 54/M Req #: [id number] Adm Physician: VIOLETTE FIELD MD Ordered by: YAJAIRA GRAMAJO MD Report #: [id number] Location: MED/SURG3 Room/Bed: [facility] Procedure: [id number] US/US ABDOMEN COMPLETE Exam Date: 01/04/20 Exam Time : 1416 REPORT STATUS: Signed EXA M: US ABDOMEN COMPLETE DATE: 01/04/2020 2:16 PM INDICATION: Ascites. COMPARISON: CT abdomen/pelvis 01/03/2020. TECHNIQUE: Transverse and genaro gitudinal goldberg scale and color doppler sonographic images of the abdomen were obtained. FINDINGS: LIVER 20.1 cm in the right midclavicular line. Normal echogenicity of the liver with normal contour, no masses. SPLEEN 1 3.3 cm in maximum diameter. Normal echogenicity, no masses. GALLBLADDER Partially decompressed. No gallbladder distention, stone, or pericholecystic fluid. Mild wall thickening measuring 0.4 cm. Minimal sludge. Negative reported sonographic Fonseca's sign. BILE DUCTS No intra nor extra-hepatic biliar y dilation. Common bile duct measures 0.4 cm PANCREAS: Not visualized due to overlying bowel gas. RIGHT KIDNEY: cm Echogenicity: Normal [place] ecting System: No hydronephrosis Stones: None Cyst/Mass: None LEFT KI DNEY: cm Echogenicity: Normal Collecting System: No hydronephrosis St ones: None Cyst/Mass: None VESSELS: Aorta: Not visualized due to overl bernadette bowel gas. Inferior Vena Cava: Visualized portions are normal Main Port al Vein: 1.4 cm, normal size with hepatopetal flow. FREE FLUID: Small volum e right upper quadrant ascites. IMPRESSION: Hepatosplenomegaly with small volume right upper quadrant ascites. Mild gallbladder wall thickening with minimal sludge. No specific evidence of cholecystitis. Suggest clinical corre lation. Signed by: Dr. Stephon Cortes MD on 01/04/2020 3:06 PM Dictated B y: STEPHON CORTES MD [address] scribed By: DARRON on 01/04/20 1506 COPY TO: YAJAIRA GRAMAJO MD Blood leukocytes automated count (number/volume)2020-01-04 14:30:00* Test Item Value Reference Range Interpretation Comments White Blood Count (test code = 6690-2) 7.45 4.8-10.8 [facility] erythrocytes automated count (number/volume)2020-01-04 14:30:00* Test Item Value Reference Range Interpretation Comments Red Blood Count (test code = 789-8) 2.64 4.3-5.7 [facility]field[facility] hemoglobin measurement (moles/volume)2020-01-04 14:30:00* Test Item Value Reference Range Interpretation Comments Hemoglobin (test code = 29935-4) 8.4 14.0-18.0 [facility]fieldAutomated blood hematocrit (volume fraction)2020-01-04 14:30:00* Test Item Value Reference Range Interpretation Comments Hematocrit (test code = 4544-3) 25.8 38.2-49.6 [facility]fieldAutomated erythrocyte mean corpuscular tqdvvw7094-98-51 14:30:00* Test Item Value Reference Range Interpretation Comments Mean Corpuscular Volume (test code = 787-2) 97.7 81-99 [facility]fieldAutomated erythrocyte mean corpuscular hemoglobin (mass per erythrocyte)2020-01-04 14:30:00* Test Item Value Reference Range Interpretation Comments Mean Corpuscular Hemoglobin (test code = 785-6) 31.8 28-32 [facility]fieldAutomated erythrocyte mean corpuscular hemoglobin concentration measurement (mass/volume)2020-01-04 14:30:00* Test Item Value Reference Range Interpretation Comments Mean Corpuscular Hemoglobin Concent (test code = 786-4) 32.6 31-35 [facility] MansfieldRDW FakXe-Cry5536-40-06 14:30:00* Test Item Value Reference Range Interpretation Comments Red Cell Distribution Width (test code = 14489-9) 16.1 11.7 -14.4 [facility]fieldAutomated blood platelet count (count/volume)2020-01-04 14:30:00* Test Item Value Reference Range Interpretation Comments Platelet Count (test code = 777-3) 210 140-360 [facility] segmented neutrophil count as percentage of total zfvuwadzpd1216-94-37 14:30:00* Test Item Value Reference Range Interpretation Comments Neutrophils (%) (Auto) (test code = 77584-2) 81.4 38.7-80.0 [facility]fieldAutomated blood lymphocyte count as percentage ot total ievcrlmcrq0179-30-26 14:30:00* Test Item Value Reference Range Interpretation Comments Lymphocytes (%) (Auto) (test code = 736-9) 6.7 18.0-39.1 [facility]fieldAutcol[facility] systemed blood monocyte count as percentage of total lbfhnuylmw9346-77-40 14:30:00* Test Item Value Reference Range Interpretation Comments Monocytes (%) (Auto) (test code = 5905-5) 9.3 4.4-11.3 [facility]fieldAutomated blood eosinophil count as percentage of total wkjkbzxgwj7171-09-51 14:30:00* Test Item Value Reference Range Interpretation Comments Eosinophils (%) (Auto) (test code = 713-8) 1.6 0.0-6.0 [facility]fieldAutomated blood basophil count as percentage of total wckonzjzuf8723-40-59 14:30:00* Test Item Value Reference Range Interpretation Comments Basophils (%) (Auto) (test code = 706-2) 0.5 0.0-1.0 [facility]fieldFluoroscopic procedure less than one hour fvxtuupf8756-82-89 14:30:00* Test Item Value Reference Range Interpretation Comments IM GRANULOCYTES % (test code = IM GRANULOCYTES %) 0.5 0.0- 1.0 [facility]fieldAutom[facility] blood neutrophil count 2020-01-04 14:30:00* Test Item Value Reference Range Interpretation Comments Neutrophils # (Auto) (test code = 751-8) 6.1 2.1-6.9 [facility]field[facility] lymphocytes count (number/volume) 2020-01-04 14:30:00* Test Item Value Reference Range Interpretation Comments Lymphocytes # (Auto) (test code = 72587-4) 0.5 1.0-3.2 [facility] monocytes automated count (number/volume)2020-01-04 14:30:00* Test Item Value Reference Range Interpretation Comments Monocytes # (Auto) (test code = 742-7) 0.7 0.2-0.8 [facility]fieldAutom[facility] blood eosinophil count 2020-01-04 14:30:00* Test Item Value Reference Range Interpretation Comments Eosinophils # (Auto) (test code = 711-2) 0.1 0.0-0.4 [facility]fieldAutomated blood basophil count (count/volume)2020-01-04 14:30:00* Test Item Value Reference Range Interpretation Comments Basophils # (Auto) (test code = 704-7) 0.0 0.0-0.1 [facility]fieldFluoroscopic procedure less than one hour vnpptgbi5328-84-27 14:30:00* Test Item Value Reference Range Interpretation Comments Absolute Immature Granulocyte (auto (rupinder t code = Absolute Immature Granulocyte (auto) 0.04 0-0.1 [facility]fieldFluoroscopic procedure less than one hour witfbajp6096-48-70 14:30:00* Test Item Value Reference Range Interpretation Comments Differential Total Cells Counted (test code = Jarret tial Total Cells Counted) 100 [facility] MansfieldManual blood neutrophils/100 leukocytes 2020-01-04 14:30:00* Test Item Value Reference Range Interpretation Comments Neutrophils % (Manual) (test code = 60047-1) 88 40-74 [facility]fieldManual blood lymphocytes/100 leukocytes 2020-01-04 14:30:00* Test Item Value Reference Range Interpretation Comments Lymphocytes % (Manual) (test code = 737-7) 6 19-48 [facility] blood monocytes/100 leukocytes 2020-01-04 14:30:00* Test Item Value Reference Range Interpretation Comments Monocytes % (Manual) (test code = 744-3) 6 3.4-9.0 [facility]fieldBlood platelets count by estimate (number/volume)2020-01-04 14:30:00* Test Item Value Reference Range Interpretation Comments Platelet Estimate (test code = 47171-7) ADEQUATE [facility] MansfieldPlatelet fesyrsxzpz7649-85-75 14:30:00* Test Item Value Reference Range Interpretation Comments Platelet Morphology Comment (test code = 24269-1) NORMAL [facility] MansfieldRBC ihnxelvkhi6776-04-98 14:30:00* Test Item Value Reference Range Interpretation Comments Red Cell Morphology Comment (test code = 6742-1) NORMAL [facility]fieldAutomated reticulocyte count as percentage of total xdyibulpfvao9500-71-15 06:15:00* Test Item Value Reference Range Interpretation Comments Percent Reticulocyte Count (test code = 71244-6) 3.3 0.8-2 .2 [facility]ville[facility] or plasma sodium measurement (moles/volume)2020-01-04 06:15:00* Test Item Value Reference Range Interpretation Comments Sodium Level (test code = 2951-2) 138 136-145 [facility]villeerum or plasma potassium measurement (moles/volume)2020-01-04 06:15:00* Test Item Value Reference Range Interpretation Comments Potassium Level (test code = 2823-3) 4.1 3.5-5.1 [facility]ville[facility]um or plasma chloride measurement (moles/volume)2020-01-04 06:15:00* Test Item Value Reference Range Interpretation Comments Chloride Level (test code = 2075-0) 100 98-107 [facility]villeerum or plasma carbon dioxide, total measurement (moles/volume)2020-01-04 06:15:00* Test Item Value Reference Range Interpretation Comments Carbon Dioxide Level (test code = 2028-9) 27 22-29 [facility]villeerum or plasma anion hmh2314-57-89 06:15:00* Test Item Value Reference Range Interpretation Comments Anion Gap (test code = 38766-3) 15.1 8-16 [facility]villeerum or plasma urea nitrogen measurement (mass/volume)2020-01-04 06:15:00* Test Item Value Reference Range Interpretation Comments Blood Urea Nitrogen (test code = 3094-0) 24 7-26 [facility]villeerum or plasma creatinine measurement (mass/volume)2020-01-04 06:15:00* Test Item Value Reference Range Interpretation Comments Creatinine (test code = 2160-0) 3.17 0.72-1.25 [facility]villeerum or plasma urea nitrogen/creatinine mass jipit4170-08-78 06:15:00* Test Item Value Reference Range Interpretation Comments BUN/Creatinine Ratio (test code = 3097-3) 8 6-25 [facility]fieldEstimated glomerular filtration rate (GFR) ipyzduobjztsa5582-50-09 06:15:00* Test Item Value Reference Range Interpretation Comments Estimat Glomerular Filtration Rate (test code = 172821322) 20 >60 Ranges were taken from the National Kidney Disease Education Program and the [facility] literature.Reference ranges:60 or greater: Spcglw50-83 ( for 3 consecutive months): Chronic kidney disease 15 or less: Kidney failureTexas Health Hospital MansfieldGlucose cwrxdtbahnp3299-59-33 06:15:00* Test Item Value Reference Range Interpretation Comments Glucose Level (test code = NAL2196) 109 74-118 [facility]ville[facility] or plasma calcium measurement (mass/volume)2020-01-04 06:15:00* Test Item Value Reference Range Interpretation Comments Calcium Level (test code = 84160-4) 8.6 8.4-10.2 [facility]ville[facility] or plasma ferritin measurement (mass/volume)2020-01-04 06:15:00* Test Item Value Reference Range Interpretation Comments Ferritin (test code = 2276-4) 846.33 21.81-274.66 [facility]villeer[facility] or plasma total bilirubin measurement (mass/volume)2020-01-04 06:15:00* Test Item Value Reference Range Interpretation Comments Total Bilirubin (test code = 1975-2) 1.0 0.2-1.2 [facility] MansfieldFluoroscopic procedure less than one hour fsbasith2073-46-82 06:15:00* Test Item Value Reference Range Interpretation Comments Aspartate Amino Transf (AST/SGOT) (test code = Aspartate Amino Transf (AST/SGOT)) 15 5-34 [facility]ville[facility] or plasma alanine aminotransferase measurement (enzymatic activity/volume)2020-01-04 06:15:00* Test Item Value Reference Range Interpretation Comments Alanine Aminotransferase (ALT/SGPT) (test code = 1742-6) 17 0-55 [facility]ville[facility]um or plasma protein measurement (mass/volume)2020-01-04 06:15:00* Test Item Value Reference Range Interpretation Comments Total Protein (test code = 2885-2) 6.9 6.5-8.1 [facility]ville[facility] or plasma albumin measurement (mass/volume)2020-01-04 06:15:00* Test Item Value Reference Range Interpretation Comments Albumin (test code = 1751-7) 2.7 3.5-5.0 [facility]fieldPlasma globulin measurement (mass/volume) 2020-01-04 06:15:00* Test Item Value Reference Range Interpretation Comments Globulin (test code = 09153-7) 4.2 2.3-3.5 [facility]ville[facility] or plasma albumin/globulin mass fcaqy1445-40-68 06:15:00* Test Item Value Reference Range Interpretation Comments Albumin/Globulin Ratio (test code = 1759-0) 0.6 0.8-2.0 [facility]ville[facility] or plasma alkaline phosphatase measurement (enzymatic activity/volume)2020-01-04 06:15:00* Test Item Value Reference Range Interpretation Comments Alkaline Phosphatase (test code = 6768-6) 616 40-150 [facility]fieldBlood cobalamin (vitamin B12) measurement (mass/volume)2020-01-04 06:15:00* Test Item Value Reference Range Interpretation Comments Vitamin B12 Level (test code = 10493-9) 570 885-934 [facility]fieldCT ABDOMEN/PELVIS [id number] 21:17:[address] [address] Patient Name: DIGNA LAMB MR #: [id number] : [birth year] Age/Sex: 54/M Req #: [id number] Adm Physician: VIOLETTE FIELD Ordered by: MICHELLE WILSON, STACY WILSON Report #: [id number] [facility] Room/Bed: [facility] Procedure: [id number] CT/CT ABDOMEN/PELVIS WO Exam Date: 01/03/20 Exam Tiago e: 1940 REPORT STATUS: Signed EX AM: CT Abdomen and Pelvis WITHOUT contrast INDICATION: Gastrointestinal blee ding. COMPARISON: 07/12/2019. TECHNIQUE: Abdomen and pelvis were scanned uti lizing a multidetector helical scanner from the lung base to the pubic symphys is without administration of IV contrast. Absence of intravenous contrast decr eases sensitivity for detection of focal lesions and vascular pathology. Coron al and sagittal reformations were obtained. Routine protocol was performed. IV CONTRAST: None. ORAL CONTRAST: Water RADIATION DOSE: Total DLP: ... mGy*cm Estimated effective dose: (DLP x 0.015 x size factor) mSv COMPLICATIONS: None FINDINGS: LINES and TUBES: Distal tip of a central venous catheter is identified in the high right atrium. LOWER THORAX: Bilateral trace pleural effusions a ppear decreases the prior exam. Bibasilar subsegmental atelectasis. 7.5 mm garret undglass nodule in the lung base laterally on image 80 series 2, previously me asured 5 mm. The heart is mildly enlarged. Multi vessel coronary artery calcif ications. HEPATOBILIARY: No focal hepatic lesions. No biliary ductal d ilation. GALLBLADDER: No radio-opaque stones or sludge. No wall thickenin g. SPLEEN: Enlarged measuring 14.9 cm in craniocaudal dimension. PANCR EAS: No focal masses or ductal dilatation. ADRENALS: No adrenal nodules KIDNEYS/URETERS: No hydronephrosis. No cystic or solid mass lesions. N o stones. GI TRACT: No abnormal distention, wall thickening, or evidence of bowel obstruction. Appendix is normal. PELVIC ORGANS/BLADDER: Th e prostate is mildly enlarged measuring 5.0 cm in transverse dimension. L YMPH NODES: Mildly prominent bilateral inguinal lymph nodes again observed, th e largest on the right measuring 1.4 cm in short axis. VESSELS: There is mo derate atherosclerotic disease in the aorta and major arterial branches. PERITONEUM / RETROPERITONEUM: Mild interval increase in volume of moderate asc ites. BONES: Unremarkable. SOFT TISSUES: Bilateral small fat-containin g inguinal hernias. Previously present anasarca has resolved. IMPRESSION: 1. Mild interval increase in moderate volume ascites. 2. Mild splenomega ly again observed. 3. Interval resolution of anasarca. 4. Bilateral small pleural effusions appear decreased. Signed by: Alice Mendez on 01/03/2020 9:48 PM Dictated By: MYRA VILLANUEVA MD, MD 47 Transcribed By: DARRON on 12/178 COPY TO: MARTINEZ,STACY US ABDOMEN [id number] 09:40:[address] [address] Patient Name: VIOLETTE LAMB MR #: [id number] : 1965 Age/Sex: 54/M Req #: [id number] Adm Physician: Ordered by: OMKAR WILSON, ADIN Moreau MD Report #: [id number] Location: US Room/Bed: Procedure: [id number] US/US ABDOMEN COMPLETE Exam Date: 12/26/19 Exam Ti me: 0801 REPORT STATUS: Signed E XAM: US ABDOMEN COMPLETE DATE: 12/26/2019 8:01 AM INDICATION: Liver cirrh osis COMPARISON: Chest CT 07/12/2019 TECHNIQUE: Transverse and longitudinal goldberg scale and color doppler sonographic images of the upper abdomen were obt ained. FINDINGS: LIVER 18.1 cm in the right midclavicular line . Normal echogenicity of the liver with normal contour, no masses. SPLEEN 15.0 cm in maximum diameter. Normal echogenicity, no masses. GALLBLADD ER 3 mm gallbladder polyp. No gallbladder wall thickening, distension, stone, or pericholecystic fluid. Negative reported sonographic Fonseca's sign. The g allbladder wall measures 4mm BILE DUCTS No intra nor extra-hepatic biliar y dilation. Common bile duct measures 4mm PANCREAS: Visualized portions a re normal. RIGHT KIDNEY: 13.3 cm Echogenicity: Normal Collecting System : No hydronephrosis Stones: None Cyst/Mass: None LEFT KIDNEY: 12.9 cm Echogenicity: Normal Collecting System: No hydronephrosis Stones: None Cyst/Mass: None VESSELS: Aorta: Visualized portions are within normal s ize limits Inferior Vena Cava: Visualized portions are normal Main Portal Ve in: 1.2 cm, normal size with hepatopetal flow. FREE FLUID: Trace ascites. IMPRESSION: Hepatomegaly and splenomegaly. No definite cirrhotic live r morphology. 3 mm gallbladder polyp. Signed by: Lisseth Jones MD on 11/29 9:42 AM Dictated By: LISSETH JONES MD 1 Transcribed By: DARRON on 12/26/19941 COPY TO: ADIN FAUSTIN Blood leukocytes automated count (number/volume) 2019-12-26 08:45:00* Test Item Value Reference Range Interpretation Comments White Blood Count (test code = 6690-2) 6.56 4.8-10.8 [facility] erythrocytes automated count (number/volume)2019-12-26 08:45:00* Test Item Value Reference Range Interpretation Comments Red Blood Count (test code = 789-8) 2.51 4.3-5.7 [facility]Blood hemoglobin measurement (moles/volume)2019-12-26 08:45:00* Test Item Value Reference Range Interpretation Comments Hemoglobin (test code = 22618-9) 8.2 14.0-18.0 [facility]fieldAutomated blood hematocrit (volume fraction)2019-12-26 08:45:00* Test Item Value Reference Range Interpretation Comments Hematocrit (test code = 4544-3) 24.8 38.2-49.6 [facility]fieldAutomated erythrocyte mean corpuscular vegyey1734-19-09 08:45:00* Test Item Value Reference Range Interpretation Comments Mean Corpuscular Volume (test code = 787-2) 98.8 81-99 [facility]fieldAutomated erythrocyte mean corpuscular hemoglobin (mass per erythrocyte)2019-12-26 08:45:00* Test Item Value Reference Range Interpretation Comments Mean Corpuscular Hemoglobin (test code = 785-6) 32.7 28-32 [facility]fieldAutomated erythrocyte mean corpuscular hemoglobin concentration measurement (mass/volume)2019-12-26 08:45:00* Test Item Value Reference Range Interpretation Comments Mean Corpuscular Hemoglobin Concent (test code = 786-4) 33.1 31-35 [facility]fieldRDW XhiAo-Mku3122-21-28 08:45:00* Test Item Value Reference Range Interpretation Comments Red Cell Distribution Width (test code = 63008-9) 13.9 11.7 -14.4 [facility]fieldAutomated blood platelet count (count/volume)2019-12-26 08:45:00* Test Item Value Reference Range Interpretation Comments Platelet Count (test code = 777-3) 136 140-360 [facility]fieldAutomated blood segmented neutrophil count as percentage of total fxzjkygpnw0831-90-12 08:45:00* Test Item Value Reference Range Interpretation Comments Neutrophils (%) (Auto) (test code = 88620-9) 78.9 38.7-80.0 [facility]fieldAutomated blood lymphocyte count as percentage ot total idtluqxxyw3485-69-89 08:45:00* Test Item Value Reference Range Interpretation Comments Lymphocytes (%) (Auto) (test code = 736-9) 8.2 18.0-39.1 [facility]fieldAutomated blood monocyte count as percentage of total krrrjghxvx6243-28-78 08:45:00* Test Item Value Reference Range Interpretation Comments Monocytes (%) (Auto) (test code = 5905-5) 9.8 4.4-11.3 [facility]fieldAutomated blood eosinophil count as percentage of total bpgbyekotz8548-40-50 08:45:00* Test Item Value Reference Range Interpretation Comments Eosinophils (%) (Auto) (test code = 713-8) 2.3 0.0-6.0 [facility]fieldAutomated blood basophil count as percentage of total zjpxwfmyqc3147-31-18 08:45:00* Test Item Value Reference Range Interpretation Comments Basophils (%) (Auto) (test code = 706-2) 0.5 0.0-1.0 [facility]fieldFluoroscopic procedure less than one hour bbrhmuus0714-63-26 08:45:00* Test Item Value Reference Range Interpretation Comments IM GRANULOCYTES % (test code = IM GRANULOCYTES %) 0.3 0.0- 1.0 [facility]fieldAutomated blood neutrophil count 2019-12-26 08:45:00* Test Item Value Reference Range Interpretation Comments Neutrophils # (Auto) (test code = 751-8) 5.2 2.1-6.9 [facility]fieldBlood lymphocytes count (number/volume) 2019-12-26 08:45:00* Test Item Value Reference Range Interpretation Comments Lymphocytes # (Auto) (test code = 01020-6) 0.5 1.0-3.2 [facility]fieldBlood monocytes automated count (number/volume)2019-12-26 08:45:00* Test Item Value Reference Range Interpretation Comments Monocytes # (Auto) (test code = 742-7) 0.6 0.2-0.8 [facility]fieldAutomated blood eosinophil count 2019-12-26 08:45:00* Test Item Value Reference Range Interpretation Comments Eosinophils # (Auto) (test code = 711-2) 0.2 0.0-0.4 [facility]fieldAutomated blood basophil count (count/volume)2019-12-26 08:45:00* Test Item Value Reference Range Interpretation Comments Basophils # (Auto) (test code = 704-7) 0.0 0.0-0.1 [facility]fieldFluoroscopic procedure less than one hour ttxiqaod8061-47-20 08:45:00* Test Item Value Reference Range Interpretation Comments Absolute Immature Granulocyte (auto (rupinder t code = Absolute Immature Granulocyte (auto) 0.02 0-0.1 [facility]fieldProthrombin time (PT) in platelet poor plasma by coagulation fvmpq9668-72-72 08:45:00* Test Item Value Reference Range Interpretation Comments Prothrombin Time (test code = 5902-2) 14.1 11.9-14.5 [facility]fieldINR in Platelet poor plasma by Coagulation jvgfj9146-81-98 08:45:00* Test Item Value Reference Range Interpretation Comments Prothromb Time International Ratio (test code = 6301-6) 1.03 Oral Anticoagulant Therapy INR Values:1. Low Intensity Therapy 1.5 - 2.02 . Moderate Intensity Therapy 2.0 - 3.03. High Intensity Therapy(1) 2.5 - 3. 54. High Intensity Therapy(2) 3.0 - 4.05. Panic Value INR > 5.0 [facility]fieldActivated partial thromboplastin time (aPTT) in platelet poor plasma by coagulation kzubp2675-46-23 08:45:00* Test Item Value Reference Range Interpretation Comments Activated Partial Thromboplast Time (test code = 10743-9) 31.2 23.8-35.5 [facility]fieldBlood leukocytes automated count (number/volume)2019-12-26 08:45:00* Test Item Value Reference Range Interpretation Comments White Blood Count (test code = 6690-2) 6.56 4.8-10.8 [facility] erythrocytes automated count (number/volume)2019-12-26 08:45:00* Test Item Value Reference Range Interpretation Comments Red Blood Count (test code = 789-8) 2.51 4.3-5.7 [facility]fieldBlood hemoglobin measurement (moles/volume)2019-12-26 08:45:00* Test Item Value Reference Range Interpretation Comments Hemoglobin (test code = 84436-1) 8.2 14.0-18.0 [facility]fieldAutomated blood hematocrit (volume fraction)2019-12-26 08:45:00* Test Item Value Reference Range Interpretation Comments Hematocrit (test code = 4544-3) 24.8 38.2-49.6 [facility]fieldAutomated erythrocyte mean corpuscular rzbudk9304-35-89 08:45:00* Test Item Value Reference Range Interpretation Comments Mean Corpuscular Volume (test code = 787-2) 98.8 81-99 [facility]fieldAutomated erythrocyte mean corpuscular hemoglobin (mass per erythrocyte)2019-12-26 08:45:00* Test Item Value Reference Range Interpretation Comments Mean Corpuscular Hemoglobin (test code = 785-6) 32.7 28-32 [facility]fieldAutomated erythrocyte mean corpuscular hemoglobin concentration measurement (mass/volume)2019-12-26 08:45:00* Test Item Value Reference Range Interpretation Comments Mean Corpuscular Hemoglobin Concent (test code = 786-4) 33.1 31-35 [facility] MansfieldRDW LxwQw-Eva8158-44-28 08:45:00* Test Item Value Reference Range Interpretation Comments Red Cell Distribution Width (test code = 03422-2) 13.9 11.7 -14.4 [facility]fieldAutomated blood platelet count (count/volume)2019-12-26 08:45:00* Test Item Value Reference Range Interpretation Comments Platelet Count (test code = 777-3) 136 140-360 [facility]fieldAutomated blood segmented neutrophil count as percentage of total cwnlwlqrzn1035-42-29 08:45:00* Test Item Value Reference Range Interpretation Comments Neutrophils (%) (Auto) (test code = 06310-3) 78.9 38.7-80.0 [facility]fieldAutomated blood lymphocyte count as percentage ot total bugcjktefh8013-35-76 08:45:00* Test Item Value Reference Range Interpretation Comments Lymphocytes (%) (Auto) (test code = 736-9) 8.2 18.0-39.1 [facility]fieldAutomated blood monocyte count as percentage of total pvmgxjrjrh5101-61-02 08:45:00* Test Item Value Reference Range Interpretation Comments Monocytes (%) (Auto) (test code = 5905-5) 9.8 4.4-11.3 [facility]fieldAutomated blood eosinophil count as percentage of total lfutfooxxc2112-69-39 08:45:00* Test Item Value Reference Range Interpretation Comments Eosinophils (%) (Auto) (test code = 713-8) 2.3 0.0-6.0 [facility]fieldAutomated blood basophil count as percentage of total cnircbgawl7221-29-63 08:45:00* Test Item Value Reference Range Interpretation Comments Basophils (%) (Auto) (test code = 706-2) 0.5 0.0-1.0 [facility]fieldFluoroscopic procedure less than one hour lnipsjwr9661-88-17 08:45:00* Test Item Value Reference Range Interpretation Comments IM GRANULOCYTES % (test code = IM GRANULOCYTES %) 0.3 0.0- 1.0 [facility]fieldAutomated blood neutrophil count 2019-12-26 08:45:00* Test Item Value Reference Range Interpretation Comments Neutrophils # (Auto) (test code = 751-8) 5.2 2.1-6.9 [facility]fieldBlood lymphocytes count (number/volume) 2019-12-26 08:45:00* Test Item Value Reference Range Interpretation Comments Lymphocytes # (Auto) (test code = 98181-2) 0.5 1.0-3.2 [facility] monocytes automated count (number/volume)2019-12-26 08:45:00* Test Item Value Reference Range Interpretation Comments Monocytes # (Auto) (test code = 742-7) 0.6 0.2-0.8 [facility]fieldAutomated blood eosinophil count 2019-12-26 08:45:00* Test Item Value Reference Range Interpretation Comments Eosinophils # (Auto) (test code = 711-2) 0.2 0.0-0.4 [facility]fieldAutomated blood basophil count (count/volume)2019-12-26 08:45:00* Test Item Value Reference Range Interpretation Comments Basophils # (Auto) (test code = 704-7) 0.0 0.0-0.1 [facility]fieldFluoroscopic procedure less than one hour bqjjlkqg9090-60-03 08:45:00* Test Item Value Reference Range Interpretation Comments Absolute Immature Granulocyte (auto (rupinder t code = Absolute Immature Granulocyte (auto) 0.02 0-0.1 [facility]fieldProthrombin time (PT) in platelet poor plasma by coagulation rabur3230-14-45 08:45:00* Test Item Value Reference Range Interpretation Comments Prothrombin Time (test code = 5902-2) 14.1 11.9-14.5 [facility]fieldINR in Platelet poor plasma by Coagulation abuho2826-68-84 08:45:00* Test Item Value Reference Range Interpretation Comments Prothromb Time International Ratio (test code = 6301-6) 1.03 Oral Anticoagulant Therapy INR Values:1. Low Intensity Therapy 1.5 - 2.02 . Moderate Intensity Therapy 2.0 - 3.03. High Intensity Therapy(1) 2.5 - 3. 54. High Intensity Therapy(2) 3.0 - 4.05. Panic Value INR > 5.0 [facility]fieldActivated partial thromboplastin time (aPTT) in platelet poor plasma by coagulation bwdmj3748-31-96 08:45:00* Test Item Value Reference Range Interpretation Comments Activated Partial Thromboplast Time (test code = 27529-0) 31.2 23.8-35.5 [facility]fieldProthrombin time (PT) in platelet poor plasma by coagulation ntxgr7044-98-62 08:45:00* Test Item Value Reference Range Interpretation Comments Prothrombin Time (test code = 5902-2) 14.1 11.9-14.5 [facility]fieldINR in Platelet poor plasma by Coagulation vlkvy6909-69-45 08:45:00* Test Item Value Reference Range Interpretation Comments Prothromb Time International Ratio (test code = 6301-6) 1.03 Oral Anticoagulant Therapy INR Values:1. Low Intensity Therapy 1.5 - 2.02 . Moderate Intensity Therapy 2.0 - 3.03. High Intensity Therapy(1) 2.5 - 3. 54. High Intensity Therapy(2) 3.0 - 4.05. Panic Value INR > 5.0 [facility]fieldActivated partial thromboplastin time (aPTT) in platelet poor plasma by coagulation rnnfi0170-41-96 08:45:00* Test Item Value Reference Range Interpretation Comments Activated Partial Thromboplast Time (test code = 85359-8) 31.2 23.8-35.5 [facility]fieldBlood Nnyxmck6217-15-78 11:35:00* Test Item Value Reference Range Interpretation Comments Blood Culture (test code = 93677150) NO GROWTH AFTER 5 DAYS, FINAL REPORT [facility]fieldBedside Lyksyfz7535-92-94 11:41:00* Test Item Value Reference Range Interpretation Comments Bedside Glucose (test code = 36183-3) 131 70-120 H Meter ID: [id number] [facility] HospitalPlatelet Morphology Ybndniy6171-14-19 11:02:00* Test Item Value Reference Range Interpretation Comments Platelet Morphology Comment (test code = 55461-0) NO EDTA PLT CLUMP S SEEN [facility]fieldCapillary blood glucose measurement by glucometer (mass/volume)2019-10-23 10:59:00* Test Item Value Reference Range Interpretation Comments Bedside Glucose (test code = 52089-3) 131 70-120 Meter ID: [id number] [facility] HospitalCapillary blood glucose measurement by glucometer (mass/volume)2019-10-23 10:59:00* Test Item Value Reference Range Interpretation Comments Bedside Glucose (test code = 76027-1) 131 70-120 Meter ID: [id number] [facility] HospitalCapillary blood glucose measurement by glucometer (mass/volume)2019-10-23 10:59:00* Test Item Value Reference Range Interpretation Comments Bedside Glucose (test code = 79003-2) 131 70-120 Meter ID: [id number] [facility] HospitalCapillary blood glucose measurement by glucometer (mass/volume)2019-10-23 10:59:00* Test Item Value Reference Range Interpretation Comments Bedside Glucose (test code = 79508-9) 131 70-120 Meter ID: [id number] [facility]odium [facility] 2019-10-23 06:43:00* Test Item Value Reference Range Interpretation Comments Sodium Level (test code = 2951-2) 133 136-145 L [facility]fieldPotassium Wlfmx9825-86-70 06:43:00* Test Item Value Reference Range Interpretation Comments Potassium Level (test code = 2823-3) 3.9 3.5-5.1 [facility]fieldChloride Ywmec8766-57-32 06:43:00* Test Item Value Reference Range Interpretation Comments Chloride Level (test code = 2075-0) 100 98-107 [facility]fieldCarbon Dioxide Wxhus4001-50-05 06:43:00* Test Item Value Reference Range Interpretation Comments Carbon Dioxide Level (test code = 2028-9) 24 22-29 [facility]fieldAnion Iqv7063-53-52 06:43:00* Test Item Value Reference Range Interpretation Comments Anion Gap (test code = 36651-8) 12.9 8-16 [facility]fieldBlood Urea Canmclpb8243-66-29 06:43:00* Test Item Value Reference Range Interpretation Comments Blood Urea Nitrogen (test code = 3094-0) 54 7-26 H [facility]fieldCreatinine2020-03-25 06:43:00* Test Item Value Reference Range Interpretation Comments Creatinine (test code = 2160-0) 4.25 0.72-1.25 H [facility]fieldBUN/Creatinine Fybko9660-41-57 06:43:00* Test Item Value Reference Range Interpretation Comments BUN/Creatinine Ratio (test code = 3097-3) 13 -25 [facility] MansfieldEstimat Glomerular Filtration Rate 2019-10-23 06:43:00* Test Item Value Reference Range Interpretation Comments Estimat Glomerular Filtration Rate (test code = 835181306) 15 >60 L Ranges were taken from the National Kidney Disease Education Program and the [facility] [employer] literature.Reference ranges:60 or greater: Zrvkun05-76 ( for 3 consecutive months): Chronic kidney disease 15 or less: Kidney failureTexas Health Hospital MansfieldGlucose Igqmz5594-17-47 06:43:00* Test Item Value Reference Range Interpretation Comments Glucose Level (test code = QJO3244) 158 74-118 H [facility]fieldCalcium Jxnem1785-37-58 06:43:00* Test Item Value Reference Range Interpretation Comments Calcium Level (test code = 99221-9) 7.8 8.4-10.2 L [facility]fieldTotal Qvwvcohcm4252-10-75 06:43:00* Test Item Value Reference Range Interpretation Comments Total Bilirubin (test code = 1975-2) 5.3 0.2-1.2 H [facility] MansfieldAspartate Amino Transf (AST/SGOT) 2019-10-23 06:43:00* Test Item Value Reference Range Interpretation Comments Aspartate Amino Transf (AST/SGOT) (test code = Aspartate Amino Transf (AST/SGOT)) 31 5-34 [facility]fieldAlanine Aminotransferase (ALT/SGPT) 2019-10-23 06:43:00* Test Item Value Reference Range Interpretation Comments Alanine Aminotransferase (ALT/SGPT) (test code = 1742-6) 36 0-55 [facility]fieldTotal Gdzwwdo5241-58-22 06:43:00* Test Item Value Reference Range Interpretation Comments Total Protein (test code = 2885-2) 5.8 6.5-8.1 L [facility]fieldAlbumin2020-03-25 06:43:00* Test Item Value Reference Range Interpretation Comments Albumin (test code = 1751-7) 2.2 3.5-5.0 L [facility]fieldGlobulin2020-03-25 06:43:00* Test Item Value Reference Range Interpretation Comments Globulin (test code = 92949-3) 3.6 2.3-3.5 H [facility]fieldAlbumin/Globulin Unzjl9599-52-70 06:43:00 * Test Item Value Reference Range Interpretation Comments Albumin/Globulin Ratio (test code = 1759-0) 0.6 0.8-2.0 L [facility]fieldAlkaline Kfgpkvwhukq7463-71-44 06:43:00* Test Item Value Reference Range Interpretation Comments Alkaline Phosphatase (test code = 6768-6) 630 40-150 H [facility]fieldWhite Blood Htywt4917-62-88 06:07:00* Test Item Value Reference Range Interpretation Comments White Blood Count (test code = 6690-2) 4.19 4.8-10.8 L [facility]fieldRed Blood Gafjo8988-44-44 06:07:00* Test Item Value Reference Range Interpretation Comments Red Blood Count (test code = 789-8) 2.55 4.3-5.7 L [facility]fieldHemoglobin2020-03-25 06:07:00* Test Item Value Reference Range Interpretation Comments Hemoglobin (test code = 52303-7) 8.3 14.0-18.0 L [facility]fieldHematocrit2020-03-25 06:07:00* Test Item Value Reference Range Interpretation Comments Hematocrit (test code = 4544-3) 25.0 38.2-49.6 L [facility]fieldMean Corpuscular Jwqodo5846-89-94 06:07:00* Test Item Value Reference Range Interpretation Comments Mean Corpuscular Volume (test code = 787-2) 98.0 81-99 [facility]fieldMean Corpuscular Freulasrvr7876-91-63 06:07:00* Test Item Value Reference Range Interpretation Comments Mean Corpuscular Hemoglobin (test code = 785-6) 32.5 28-32 H [facility]fieldMean Corpuscular Hemoglobin Concent 2019-10-23 06:07:00* Test Item Value Reference Range Interpretation Comments Mean Corpuscular Hemoglobin Concent (test code = 786-4) 33.2 31-35 [facility]fieldRed Cell Distribution Phwan8073-84-35 06:07:00* Test Item Value Reference Range Interpretation Comments Red Cell Distribution Width (test code = 72393-5) 17.8 11.7 -14.4 H [facility] MansfieldPlatelet Rsapp1236-24-98 06:07:00* Test Item Value Reference Range Interpretation Comments Platelet Count (test code = 777-3) 86 140-360 L [facility]fieldNeutrophils (%) (Auto)2019-10-23 06:07:00 * Test Item Value Reference Range Interpretation Comments Neutrophils (%) (Auto) (test code = 20737-0) 76.2 38.7-80.0 [facility]fieldLymphocytes (%) (Auto)2019-10-23 06:07:00 * Test Item Value Reference Range Interpretation Comments Lymphocytes (%) (Auto) (test code = 736-9) 12.6 18.0-39.1 L [facility]fieldMonocytes (%) (Auto)2019-10-23 06:07:00* Test Item Value Reference Range Interpretation Comments Monocytes (%) (Auto) (test code = 5905-5) 8.6 4.4-11.3 [facility]fieldEosinophils (%) (Auto)2019-10-23 06:07:00 * Test Item Value Reference Range Interpretation Comments Eosinophils (%) (Auto) (test code = 713-8) 2.1 0.0-6.0 [facility]fieldBasophils (%) (Auto)2019-10-23 06:07:00* Test Item Value Reference Range Interpretation Comments Basophils (%) (Auto) (test code = 706-2) 0.0 0.0-1.0 [facility]fieldIM GRANULOCYTES %2019-10-23 06:07:00* Test Item Value Reference Range Interpretation Comments IM GRANULOCYTES % (test code = IM GRANULOCYTES %) 0.5 0.0- 1.0 [facility]fieldNeutrophils # (Auto)2019-10-23 06:07:00* Test Item Value Reference Range Interpretation Comments Neutrophils # (Auto) (test code = 751-8) 3.2 2.1-6.9 [facility]fieldLymphocytes # (Auto)2019-10-23 06:07:00* Test Item Value Reference Range Interpretation Comments Lymphocytes # (Auto) (test code = 09999-7) 0.5 1.0-3.2 L [facility]fieldMonocytes # (Auto)2019-10-23 06:07:00* Test Item Value Reference Range Interpretation Comments Monocytes # (Auto) (test code = 742-7) 0.4 0.2-0.8 [facility]fieldEosinophils # (Auto)2019-10-23 06:07:00* Test Item Value Reference Range Interpretation Comments Eosinophils # (Auto) (test code = 711-2) 0.1 0.0-0.4 [facility]fieldBasophils # (Auto)2019-10-23 06:07:00* Test Item Value Reference Range Interpretation Comments Basophils # (Auto) (test code = 704-7) 0.0 0.0-0.1 [facility]fieldAbsolute Immature Granulocyte (auto 2019-10-23 06:07:00* Test Item Value Reference Range Interpretation Comments Absolute Immature Granulocyte (auto (rupinder t code = Absolute Immature Granulocyte (auto) 0.02 0-0.1 [facility] health leukocytes automated count (number/volume)2019-10-23 05:20:00* Test Item Value Reference Range Interpretation Comments White Blood Count (test code = 6690-2) 4.19 4.8-10.8 [facility]fieldBlood erythrocytes automated count (number/volume)2019-10-23 05:20:00* Test Item Value Reference Range Interpretation Comments Red Blood Count (test code = 789-8) 2.55 4.3-5.7 [facility] hemoglobin measurement (moles/volume)2019-10-23 05:20:00* Test Item Value Reference Range Interpretation Comments Hemoglobin (test code = 22802-1) 8.3 14.0-18.0 [facility]fieldAutomated blood hematocrit (volume fraction)2019-10-23 05:20:00* Test Item Value Reference Range Interpretation Comments Hematocrit (test code = 4544-3) 25.0 38.2-49.6 [facility]fieldAutomated erythrocyte mean corpuscular orngsr4553-94-92 05:20:00* Test Item Value Reference Range Interpretation Comments Mean Corpuscular Volume (test code = 787-2) 98.0 81-99 [facility]fieldAutomated erythrocyte mean corpuscular hemoglobin (mass per erythrocyte)2019-10-23 05:20:00* Test Item Value Reference Range Interpretation Comments Mean Corpuscular Hemoglobin (test code = 785-6) 32.5 28-32 [facility]fieldAutomated erythrocyte mean corpuscular hemoglobin concentration measurement (mass/volume)2019-10-23 05:20:00* Test Item Value Reference Range Interpretation Comments Mean Corpuscular Hemoglobin Concent (test code = 786-4) 33.2 31-35 [facility] MansfieldRDW XziGq-Gpr3935-95-25 05:20:00* Test Item Value Reference Range Interpretation Comments Red Cell Distribution Width (test code = 21341-6) 17.8 11.7 -14.4 [facility]fieldAutomated blood platelet count (count/volume)2019-10-23 05:20:00* Test Item Value Reference Range Interpretation Comments Platelet Count (test code = 777-3) 86 140-360 [facility]fieldAutomated blood segmented neutrophil count as percentage of total czmiiigtka4073-09-04 05:20:00* Test Item Value Reference Range Interpretation Comments Neutrophils (%) (Auto) (test code = 34390-2) 76.2 38.7-80.0 [facility] count as percentage ot total lanhopamtz5892-60-77 05:20:00* Test Item Value Reference Range Interpretation Comments Lymphocytes (%) (Auto) (test code = 736-9) 12.6 18.0-39.1 [facility] monocyte count as percentage of total ncaevxgium2554-29-13 05:20:00* Test Item Value Reference Range Interpretation Comments Monocytes (%) (Auto) (test code = 5905-5) 8.6 4.4-11.3 [facility]fieldAutom[facility] blood eosinophil count as percentage of total jjmwzcnpgd1682-02-41 05:20:00* Test Item Value Reference Range Interpretation Comments Eosinophils (%) (Auto) (test code = 713-8) 2.1 0.0-6.0 [facility]fieldAutom[facility] blood basophil count as percentage of total ncklbqnmyd1456-12-86 05:20:00* Test Item Value Reference Range Interpretation Comments Basophils (%) (Auto) (test code = 706-2) 0.0 0.0-1.0 [facility]fieldFluoroscopic procedure less than one hour hubdhhuj6421-28-75 05:20:00* Test Item Value Reference Range Interpretation Comments IM GRANULOCYTES % (test code = IM GRANULOCYTES %) 0.5 0.0- 1.0 [facility]fieldAutom[facility] blood neutrophil count 2019-10-23 05:20:00* Test Item Value Reference Range Interpretation Comments Neutrophils # (Auto) (test code = 751-8) 3.2 2.1-6.9 [facility]fieldBlood lymphocytes count (number/volume) 2019-10-23 05:20:00* Test Item Value Reference Range Interpretation Comments Lymphocytes # (Auto) (test code = 60166-4) 0.5 1.0-3.2 [facility]fieldBlood monocytes automated count (number/volume)2019-10-23 05:20:00* Test Item Value Reference Range Interpretation Comments Monocytes # (Auto) (test code = 742-7) 0.4 0.2-0.8 [facility]fieldAutom[facility] blood eosinophil count 2019-10-23 05:20:00* Test Item Value Reference Range Interpretation Comments Eosinophils # (Auto) (test code = 711-2) 0.1 0.0-0.4 [facility]fieldAutom[facility] blood basophil count (count/volume)2019-10-23 05:20:00* Test Item Value Reference Range Interpretation Comments Basophils # (Auto) (test code = 704-7) 0.0 0.0-0.1 [facility]fieldFluoroscopic procedure less than one hour bfeelevj7667-93-82 05:20:00* Test Item Value Reference Range Interpretation Comments Absolute Immature Granulocyte (auto (rupinder t code = Absolute Immature Granulocyte (auto) 0.02 0-0.1 [facility]fieldPlatelet wtxcwsynkg0059-20-45 05:20:00* Test Item Value Reference Range Interpretation Comments Platelet Morphology Comment (test code = 99695-9) See Comment NO EDTA PLT CLUMPS SEENVal[facility]villeerum or plasma sodium measurement (moles/volume)2019-10-23 05:20:00* Test Item Value Reference Range Interpretation Comments Sodium Level (test code = 2951-2) 133 136-145 [facility]villeerum or plasma potassium measurement (moles/volume)2019-10-23 05:20:00* Test Item Value Reference Range Interpretation Comments Potassium Level (test code = 2823-3) 3.9 3.5-5.1 [facility]villeerum or plasma chloride measurement (moles/volume)2019-10-23 05:20:00* Test Item Value Reference Range Interpretation Comments Chloride Level (test code = 2075-0) 100 98-107 [facility]villeerum or plasma carbon dioxide, total measurement (moles/volume)2019-10-23 05:20:00* Test Item Value Reference Range Interpretation Comments Carbon Dioxide Level (test code = 2028-9) 24 22-29 [facility]villeerum or plasma anion nrc8943-93-89 05:20:00* Test Item Value Reference Range Interpretation Comments Anion Gap (test code = 23356-6) 12.9 8-16 [facility]villeerum or plasma urea nitrogen measurement (mass/volume)2019-10-23 05:20:00* Test Item Value Reference Range Interpretation Comments Blood Urea Nitrogen (test code = 3094-0) 54 7-26 [facility]villeerum or plasma creatinine measurement (mass/volume)2019-10-23 05:20:00* Test Item Value Reference Range Interpretation Comments Creatinine (test code = 2160-0) 4.25 0.72-1.25 [facility]villeerum or plasma urea nitrogen/creatinine mass ehhcy0559-61-13 05:20:00* Test Item Value Reference Range Interpretation Comments BUN/Creatinine Ratio (test code = 3097-3) 13 6-25 [facility]fieldEstimated glomerular filtration rate (GFR) issojfowhrjsw7638-71-84 05:20:00* Test Item Value Reference Range Interpretation Comments Estimat Glomerular Filtration Rate (test code = 922281017) 15 >60 Ranges were taken from the National Kidney Disease Education Program and the [facility] literature.Reference ranges:60 or greater: Nkdmew55-33 ( for 3 consecutive months): Chronic kidney disease 15 or less: Kidney failureTexas Health Hospital MansfieldGlucose mpxbrjahfqm5938-51-58 05:20:00* Test Item Value Reference Range Interpretation Comments Glucose Level (test code = KWA4822) 158 74-118 [facility]erum or plasma calcium measurement (mass/volume)2019-10-23 05:20:00* Test Item Value Reference Range Interpretation Comments Calcium Level (test code = 48955-7) 7.8 8.4-10.2 [facility]erum or plasma total bilirubin measurement (mass/volume)2019-10-23 05:20:00* Test Item Value Reference Range Interpretation Comments Total Bilirubin (test code = 1975-2) 5.3 0.2-1.2 [facility]fieldFluoroscopic procedure less than one hour cqdumesj4395-53-20 05:20:00* Test Item Value Reference Range Interpretation Comments Aspartate Amino Transf (AST/SGOT) (test code = Aspartate Amino Transf (AST/SGOT)) 31 5-34 [facility]villeerum or plasma alanine aminotransferase measurement (enzymatic activity/volume)2019-10-23 05:20:00* Test Item Value Reference Range Interpretation Comments Alanine Aminotransferase (ALT/SGPT) (test code = 1742-6) 36 0-55 [facility]erum or plasma protein measurement (mass/volume)2019-10-23 05:20:00* Test Item Value Reference Range Interpretation Comments Total Protein (test code = 2885-2) 5.8 6.5-8.1 [facility]erum or plasma albumin measurement (mass/volume)2019-10-23 05:20:00* Test Item Value Reference Range Interpretation Comments Albumin (test code = 1751-7) 2.2 3.5-5.0 [facility]fieldPlasma globulin measurement (mass/volume) 2019-10-23 05:20:00* Test Item Value Reference Range Interpretation Comments Globulin (test code = 87908-0) 3.6 2.3-3.5 [facility]erum or plasma albumin/globulin mass lgvpf2126-66-02 05:20:00* Test Item Value Reference Range Interpretation Comments Albumin/Globulin Ratio (test code = 1759-0) 0.6 0.8-2.0 [facility]erum or plasma alkaline phosphatase measurement (enzymatic activity/volume)2019-10-23 05:20:00* Test Item Value Reference Range Interpretation Comments Alkaline Phosphatase (test code = 6768-6) 630 40-150 [facility]fieldBlood leukocytes automated count (number/volume)2019-10-23 05:20:00* Test Item Value Reference Range Interpretation Comments White Blood Count (test code = 6690-2) 4.19 4.8-10.8 [facility]fieldBlood erythrocytes automated count (number/volume)2019-10-23 05:20:00* Test Item Value Reference Range Interpretation Comments Red Blood Count (test code = 789-8) 2.55 4.3-5.7 [facility]fieldBlood hemoglobin measurement (moles/volume)2019-10-23 05:20:00* Test Item Value Reference Range Interpretation Comments Hemoglobin (test code = 10414-5) 8.3 14.0-18.0 [facility]fieldAutomated blood hematocrit (volume fraction)2019-10-23 05:20:00* Test Item Value Reference Range Interpretation Comments Hematocrit (test code = 4544-3) 25.0 38.2-49.6 [facility]fieldAutomated erythrocyte mean corpuscular hkijdq6347-29-15 05:20:00* Test Item Value Reference Range Interpretation Comments Mean Corpuscular Volume (test code = 787-2) 98.0 81-99 [facility]fieldAutomated erythrocyte mean corpuscular hemoglobin (mass per erythrocyte)2019-10-23 05:20:00* Test Item Value Reference Range Interpretation Comments Mean Corpuscular Hemoglobin (test code = 785-6) 32.5 28-32 [facility]fieldAutomated erythrocyte mean corpuscular hemoglobin concentration measurement (mass/volume)2019-10-23 05:20:00* Test Item Value Reference Range Interpretation Comments Mean Corpuscular Hemoglobin Concent (test code = 786-4) 33.2 31-35 [facility] MansfieldRDW HydSq-Krj0299-51-25 05:20:00* Test Item Value Reference Range Interpretation Comments Red Cell Distribution Width (test code = 48768-2) 17.8 11.7 -14.4 [facility]fieldAutomated blood platelet count (count/volume)2019-10-23 05:20:00* Test Item Value Reference Range Interpretation Comments Platelet Count (test code = 777-3) 86 140-360 [facility]fieldAutomated blood segmented neutrophil count as percentage of total iovfiznvvj3878-24-02 05:20:00* Test Item Value Reference Range Interpretation Comments Neutrophils (%) (Auto) (test code = 92439-9) 76.2 38.7-80.0 [facility]fieldAutomated blood lymphocyte count as percentage ot total gnvyyerays0031-21-25 05:20:00* Test Item Value Reference Range Interpretation Comments Lymphocytes (%) (Auto) (test code = 736-9) 12.6 18.0-39.1 [facility]fieldAutomated blood monocyte count as percentage of total iiwojiwqfm3494-80-95 05:20:00* Test Item Value Reference Range Interpretation Comments Monocytes (%) (Auto) (test code = 5905-5) 8.6 4.4-11.3 [facility]fieldAutomated blood eosinophil count as percentage of total nrtmbxsrqm8433-19-40 05:20:00* Test Item Value Reference Range Interpretation Comments Eosinophils (%) (Auto) (test code = 713-8) 2.1 0.0-6.0 [facility]fieldAutom[facility] blood basophil count as percentage of total eutuyqoaqu9864-29-21 05:20:00* Test Item Value Reference Range Interpretation Comments Basophils (%) (Auto) (test code = 706-2) 0.0 0.0-1.0 [facility]fieldFluoroscopic procedure less than one hour bfcxnxak4722-56-00 05:20:00* Test Item Value Reference Range Interpretation Comments IM GRANULOCYTES % (test code = IM GRANULOCYTES %) 0.5 0.0- 1.0 [facility]fieldAutom[facility] blood neutrophil count 2019-10-23 05:20:00* Test Item Value Reference Range Interpretation Comments Neutrophils # (Auto) (test code = 751-8) 3.2 2.1-6.9 [facility]fieldBlood lymphocytes count (number/volume) 2019-10-23 05:20:00* Test Item Value Reference Range Interpretation Comments Lymphocytes # (Auto) (test code = 92582-9) 0.5 1.0-3.2 [facility]fieldBlood monocytes automated count (number/volume)2019-10-23 05:20:00* Test Item Value Reference Range Interpretation Comments Monocytes # (Auto) (test code = 742-7) 0.4 0.2-0.8 [facility]fieldAutom[facility] blood eosinophil count 2019-10-23 05:20:00* Test Item Value Reference Range Interpretation Comments Eosinophils # (Auto) (test code = 711-2) 0.1 0.0-0.4 [facility]fieldAutom[facility] blood basophil count (count/volume)2019-10-23 05:20:00* Test Item Value Reference Range Interpretation Comments Basophils # (Auto) (test code = 704-7) 0.0 0.0-0.1 [facility]fieldFluoroscopic procedure less than one hour xbiqlyzy2393-91-89 05:20:00* Test Item Value Reference Range Interpretation Comments Absolute Immature Granulocyte (auto (rupinder t code = Absolute Immature Granulocyte (auto) 0.02 0-0.1 [facility]fieldPlatelet zbbmgflxbp2921-38-15 05:20:00* Test Item Value Reference Range Interpretation Comments Platelet Morphology Comment (test code = 49009-4) See Comment NO EDTA PLT CLUMPS SEENVal[facility]villeerum or plasma sodium measurement (moles/volume)2019-10-23 05:20:00* Test Item Value Reference Range Interpretation Comments Sodium Level (test code = 2951-2) 133 136-145 [facility]villeerum or plasma potassium measurement (moles/volume)2019-10-23 05:20:00* Test Item Value Reference Range Interpretation Comments Potassium Level (test code = 2823-3) 3.9 3.5-5.1 [facility]erum or plasma chloride measurement (moles/volume)2019-10-23 05:20:00* Test Item Value Reference Range Interpretation Comments Chloride Level (test code = 2075-0) 100 98-107 [facility]villeerum or plasma carbon dioxide, total measurement (moles/volume)2019-10-23 05:20:00* Test Item Value Reference Range Interpretation Comments Carbon Dioxide Level (test code = 2028-9) 24 22-29 [facility]villeerum or plasma anion ukw4809-51-27 05:20:00* Test Item Value Reference Range Interpretation Comments Anion Gap (test code = 35047-0) 12.9 8-16 [facility]erum or plasma urea nitrogen measurement (mass/volume)2019-10-23 05:20:00* Test Item Value Reference Range Interpretation Comments Blood Urea Nitrogen (test code = 3094-0) 54 7-26 [facility]erum or plasma creatinine measurement (mass/volume)2019-10-23 05:20:00* Test Item Value Reference Range Interpretation Comments Creatinine (test code = 2160-0) 4.25 0.72-1.25 [facility]villeerum or plasma urea nitrogen/creatinine mass blkxe0182-84-89 05:20:00* Test Item Value Reference Range Interpretation Comments BUN/Creatinine Ratio (test code = 3097-3) 13 6-25 [facility]fieldEstimated glomerular filtration rate (GFR) rqhilrwhtphbm4989-71-68 05:20:00* Test Item Value Reference Range Interpretation Comments Estimat Glomerular Filtration Rate (test code = 421294337) 15 >60 Ranges were taken from the National Kidney Disease Education Program and the [facility] Kidney Foundation literature.Reference ranges:60 or greater: Twoyxc66-18 ( for 3 consecutive months): Chronic kidney disease 15 or less: Kidney failureTexas Health Hospital MansfieldGlucose harvluwjtlj9083-62-59 05:20:00* Test Item Value Reference Range Interpretation Comments Glucose Level (test code = HQF9044) 158 74-118 [facility]erum or plasma calcium measurement (mass/volume)2019-10-23 05:20:00* Test Item Value Reference Range Interpretation Comments Calcium Level (test code = 69436-5) 7.8 8.4-10.2 [facility]erum or plasma total bilirubin measurement (mass/volume)2019-10-23 05:20:00* Test Item Value Reference Range Interpretation Comments Total Bilirubin (test code = 1975-2) 5.3 0.2-1.2 [facility]fieldFluoroscopic procedure less than one hour zacxsfbx8123-68-12 05:20:00* Test Item Value Reference Range Interpretation Comments Aspartate Amino Transf (AST/SGOT) (test code = Aspartate Amino Transf (AST/SGOT)) 31 5-34 [facility]erum or plasma alanine aminotransferase measurement (enzymatic activity/volume)2019-10-23 05:20:00* Test Item Value Reference Range Interpretation Comments Alanine Aminotransferase (ALT/SGPT) (test code = 1742-6) 36 0-55 [facility]erum or plasma protein measurement (mass/volume)2019-10-23 05:20:00* Test Item Value Reference Range Interpretation Comments Total Protein (test code = 2885-2) 5.8 6.5-8.1 [facility]villeerum or plasma albumin measurement (mass/volume)2019-10-23 05:20:00* Test Item Value Reference Range Interpretation Comments Albumin (test code = 1751-7) 2.2 3.5-5.0 [facility]fieldPlasma globulin measurement (mass/volume) 2019-10-23 05:20:00* Test Item Value Reference Range Interpretation Comments Globulin (test code = 09184-2) 3.6 2.3-3.5 [facility]villeerum or plasma albumin/globulin mass pmyps8350-21-78 05:20:00* Test Item Value Reference Range Interpretation Comments Albumin/Globulin Ratio (test code = 1759-0) 0.6 0.8-2.0 [facility]villeerum or plasma alkaline phosphatase measurement (enzymatic activity/volume)2019-10-23 05:20:00* Test Item Value Reference Range Interpretation Comments Alkaline Phosphatase (test code = 6768-6) 630 40-150 [facility]fieldPlatelet tyayrcmbbd5555-87-26 05:20:00* Test Item Value Reference Range Interpretation Comments Platelet Morphology Comment (test code = 93299-0) See Comment NO EDTA PLT CLUMPS SEENVal[facility]villeerum or plasma sodium measurement (moles/volume)2019-10-23 05:20:00* Test Item Value Reference Range Interpretation Comments Sodium Level (test code = 2951-2) 133 136-145 [facility]villeerum or plasma potassium measurement (moles/volume)2019-10-23 05:20:00* Test Item Value Reference Range Interpretation Comments Potassium Level (test code = 2823-3) 3.9 3.5-5.1 [facility]villeerum or plasma chloride measurement (moles/volume)2019-10-23 05:20:00* Test Item Value Reference Range Interpretation Comments Chloride Level (test code = 2075-0) 100 98-107 [facility]villeerum or plasma carbon dioxide, total measurement (moles/volume)2019-10-23 05:20:00* Test Item Value Reference Range Interpretation Comments Carbon Dioxide Level (test code = 2028-9) 24 22-29 [facility]villeerum or plasma anion jyz8675-26-14 05:20:00* Test Item Value Reference Range Interpretation Comments Anion Gap (test code = 69919-9) 12.9 8-16 [facility]villeerum or plasma urea nitrogen measurement (mass/volume)2019-10-23 05:20:00* Test Item Value Reference Range Interpretation Comments Blood Urea Nitrogen (test code = 3094-0) 54 7-26 [facility]erum or plasma creatinine measurement (mass/volume)2019-10-23 05:20:00* Test Item Value Reference Range Interpretation Comments Creatinine (test code = 2160-0) 4.25 0.72-1.25 [facility]erum or plasma urea nitrogen/creatinine mass flqsi8100-01-45 05:20:00* Test Item Value Reference Range Interpretation Comments BUN/Creatinine Ratio (test code = 3097-3) 13 6-25 [facility]fieldEstimated glomerular filtration rate (GFR) orhnfbpunvtep9741-08-13 05:20:00* Test Item Value Reference Range Interpretation Comments Estimat Glomerular Filtration Rate (test code = 190804890) 15 >60 Ranges were taken from the National Kidney Disease Education Program and the [facility] literature.Reference ranges:60 or greater: Yajwxc69-45 ( for 3 consecutive months): Chronic kidney disease 15 or less: Kidney failureTexas Health Hospital MansfieldGlucose refgzjhdeue9116-33-56 05:20:00* Test Item Value Reference Range Interpretation Comments Glucose Level (test code = AYA6403) 158 74-118 [facility]erum or plasma calcium measurement (mass/volume)2019-10-23 05:20:00* Test Item Value Reference Range Interpretation Comments Calcium Level (test code = 34583-1) 7.8 8.4-10.2 [facility]erum or plasma total bilirubin measurement (mass/volume)2019-10-23 05:20:00* Test Item Value Reference Range Interpretation Comments Total Bilirubin (test code = 1975-2) 5.3 0.2-1.2 [facility]fieldFluoroscopic procedure less than one hour hesmpysq0467-35-13 05:20:00* Test Item Value Reference Range Interpretation Comments Aspartate Amino Transf (AST/SGOT) (test code = Aspartate Amino Transf (AST/SGOT)) 31 5-34 [facility]villeerum or plasma alanine aminotransferase measurement (enzymatic activity/volume)2019-10-23 05:20:00* Test Item Value Reference Range Interpretation Comments Alanine Aminotransferase (ALT/SGPT) (test code = 1742-6) 36 0-55 [facility]villeerum or plasma protein measurement (mass/volume)2019-10-23 05:20:00* Test Item Value Reference Range Interpretation Comments Total Protein (test code = 2885-2) 5.8 6.5-8.1 [facility]villeerum or plasma albumin measurement (mass/volume)2019-10-23 05:20:00* Test Item Value Reference Range Interpretation Comments Albumin (test code = 1751-7) 2.2 3.5-5.0 [facility]fieldPlasma globulin measurement (mass/volume) 2019-10-23 05:20:00* Test Item Value Reference Range Interpretation Comments Globulin (test code = 53107-9) 3.6 2.3-3.5 [facility]villeerum or plasma albumin/globulin mass belyl0949-81-16 05:20:00* Test Item Value Reference Range Interpretation Comments Albumin/Globulin Ratio (test code = 1759-0) 0.6 0.8-2.0 [facility]erum or plasma alkaline phosphatase measurement (enzymatic activity/volume)2019-10-23 05:20:00* Test Item Value Reference Range Interpretation Comments Alkaline Phosphatase (test code = 6768-6) 630 40-150 [facility]fieldPlatelet xeesnouwrd6944-03-82 05:20:00* Test Item Value Reference Range Interpretation Comments Platelet Morphology Comment (test code = 56111-7) See Comment NO EDTA PLT CLUMPS SEENVal[facility] Brownsvilleerum or plasma sodium measurement (moles/volume)2019-10-23 05:20:00* Test Item Value Reference Range Interpretation Comments Sodium Level (test code = 2951-2) 133 136-145 [facility]villeerum or plasma potassium measurement (moles/volume)2019-10-23 05:20:00* Test Item Value Reference Range Interpretation Comments Potassium Level (test code = 2823-3) 3.9 3.5-5.1 [facility]villeerum or plasma chloride measurement (moles/volume)2019-10-23 05:20:00* Test Item Value Reference Range Interpretation Comments Chloride Level (test code = 2075-0) 100 98-107 [facility]villeerum or plasma carbon dioxide, total measurement (moles/volume)2019-10-23 05:20:00* Test Item Value Reference Range Interpretation Comments Carbon Dioxide Level (test code = 2028-9) 24 22-29 [facility]villeerum or plasma anion tzu3945-86-01 05:20:00* Test Item Value Reference Range Interpretation Comments Anion Gap (test code = 04810-2) 12.9 8-16 [facility]villeerum or plasma urea nitrogen measurement (mass/volume)2019-10-23 05:20:00* Test Item Value Reference Range Interpretation Comments Blood Urea Nitrogen (test code = 3094-0) 54 7-26 [facility]villeerum or plasma creatinine measurement (mass/volume)2019-10-23 05:20:00* Test Item Value Reference Range Interpretation Comments Creatinine (test code = 2160-0) 4.25 0.72-1.25 [facility]villeerum or plasma urea nitrogen/creatinine mass jxpaa8580-00-73 05:20:00* Test Item Value Reference Range Interpretation Comments BUN/Creatinine Ratio (test code = 3097-3) 13 6-25 [facility]fieldEstimated glomerular filtration rate (GFR) szsxqxzmiatwo7728-36-14 05:20:00* Test Item Value Reference Range Interpretation Comments Estimat Glomerular Filtration Rate (test code = 760119607) 15 >60 Ranges were taken from the National Kidney Disease Education Program and the [facility] Kidney Foundation literature.Reference ranges:60 or greater: Xhyxki20-22 ( for 3 consecutive months): Chronic kidney disease 15 or less: Kidney failureTexas [facility] Hospital MansfieldGlucose eppcdvjccnb4660-59-92 05:20:00* Test Item Value Reference Range Interpretation Comments Glucose Level (test code = RZD4993) 158 74-118 [facility]villeerum or plasma calcium measurement (mass/volume)2019-10-23 05:20:00* Test Item Value Reference Range Interpretation Comments Calcium Level (test code = 70067-1) 7.8 8.4-10.2 [facility]villeerum or plasma total bilirubin measurement (mass/volume)2019-10-23 05:20:00* Test Item Value Reference Range Interpretation Comments Total Bilirubin (test code = 1975-2) 5.3 0.2-1.2 [facility]fieldFluoroscopic procedure less than one hour lwaaepcb0567-34-61 05:20:00* Test Item Value Reference Range Interpretation Comments Aspartate Amino Transf (AST/SGOT) (test code = Aspartate Amino Transf (AST/SGOT)) 31 5-34 [facility] plasma alanine aminotransferase measurement (enzymatic activity/volume)2019-10-23 05:20:00* Test Item Value Reference Range Interpretation Comments Alanine Aminotransferase (ALT/SGPT) (test code = 1742-6) 36 0-55 [facility]ville[facility] or plasma protein measurement (mass/volume)2019-10-23 05:20:00* Test Item Value Reference Range Interpretation Comments Total Protein (test code = 2885-2) 5.8 6.5-8.1 [facility]villeer[facility] or plasma albumin measurement (mass/volume)2019-10-23 05:20:00* Test Item Value Reference Range Interpretation Comments Albumin (test code = 1751-7) 2.2 3.5-5.0 [facility]fieldPlasma globulin measurement (mass/volume) 2019-10-23 05:20:00* Test Item Value Reference Range Interpretation Comments Globulin (test code = 91254-3) 3.6 2.3-3.5 [facility]villeer[facility] or plasma albumin/globulin mass kabrv6999-56-06 05:20:00* Test Item Value Reference Range Interpretation Comments Albumin/Globulin Ratio (test code = 1759-0) 0.6 0.8-2.0 [facility] or plasma alkaline phosphatase measurement (enzymatic activity/volume)2019-10-23 05:20:00* Test Item Value Reference Range Interpretation Comments Alkaline Phosphatase (test code = 6768-6) 630 40-150 [facility]fieldAlkaline Pagguzidvbi7881-99-29 03:42:00* Test Item Value Reference Range Interpretation Comments Alkaline Phosphatase (test code = 6768-6) 865 39-117 H [facility]fieldAlkaline Phosphatase Iso-Intestine 2019-10-23 03:42:00* Test Item Value Reference Range Interpretation Comments Alkaline Phosphatase Iso-Intestine (test code = 72597-6) 0 0-18 Performed at: HD - [facility] [address] [id number] Director: Roe Contreras MD, Phone: [phone] at: - [facility] [id number] [place] [address] [id number] Director: Dasha Lr MD, Ph one: [phone] Health Hospital MansfieldAlkaline Phosphatase Tup-Keoe3406-42-25 03:42:00* Test Item Value Reference Range Interpretation Comments Alkaline Phosphatase Iso-Bone (test code = 69882-0) 21 12 - [facility]fieldAlkaline Phosphatase Jfp-Aldry2075-25-25 03:42:00* Test Item Value Reference Range Interpretation Comments Alkaline Phosphatase Iso-Liver (test code = 77896-2) 79 1 3-88 [facility]fieldHepatitis Be Glxeylsl9364-82-98 22:13:00 * Test Item Value Reference Range Interpretation Comments Hepatitis Be Antibody (test code = 32991-0) Negative Negative Performed at: [address] [id number] Senior Safety Support Manager: Dasha Lr MD, Phone: [phone] Health Hospital MansfieldHepatitis B Core Total Tcjoskrn6055-21-90 22:13:00* Test Item Value Reference Range Interpretation Comments Hepatitis B Core Total Antibody (test code = 57985-9) Negative Negative [facility] B Surface Ebabxxh1640-52-53 22:13:00* Test Item Value Reference Range Interpretation Comments Hepatitis B Surface Antigen (test code = 5196-1) Negative Negat [place] [facility]fieldHeshriners hospitals [facility] [place] B Core IgM Icbeurjn8253-49-29 22:13:00* Test Item Value Reference Range Interpretation Comments Hepatitis B Core IgM Antibody (test code = 85048-3) Negative Ne gative Performed at: [facility] [address] [id number] Director: Roe Contreras MD, Phone: [phone] Health Hospital MansfieldAnti-Mitochondrial Nzjsjrfv6301-05-78 22:13:00* Test Item Value Reference Range Interpretation Comments Anti-Mitochondrial Antibody (test code = 23238-8) <20.0 0.0- 20.0 Negative 0.0 - 20.0 Equivocal 20.1 - 24.9 Positive > 24.9Mitochondrial (M2) Antibodies are found in 90-96% ofpatients with primary bi liary cirrhosis.Performed at: [facility] [address] [id number] Director: Dasha Lr MD, Phone: [phone] Health Hospital MansfieldUS ABDOMEN DUONHZK0969-64-18 08:51:00 [place] [address] Patient Name: VIOLETTE LAMB MR #: [id number] : 1965 Age/Sex: 54/M Req #: [id number] Adm Physician: PAWEL SALVADOR MD Ordered by: YAJAIRA GRAMAJO MD Report #: [id number] Location: MED/SURG2 Room/Bed: [facility] Procedure: [id number] [id number] US/US ABDOMEN LIMITED Exam [...] on 10/22/19857 COPY TO: YAJAIRA GRAMAJO MD Nlusw-9-Afqlpucnmbp 2019-10-21 15:56:00* Test Item Value Reference Range Interpretation Comments Tnach-2-Frrfxpthyxc (test code = 1825-9) 406 540-433 Performed at: [facility] [id number] [facility] [address], [place], [place] [id number] 4Lab Director: RACHELLE Singh MD, Phone: [phone] Health Hospital MansfieldCeruloplasmin2020-03-23 15:56:00* Test Item Value Reference Range Interpretation Comments Ceruloplasmin (test code = 2064-4) 41.0 16.0-31.0 H [facility]fieldDirect Itqmdkeqg3574-56-64 06:00:00* Test Item Value Reference Range Interpretation Comments Direct Bilirubin (test code = 64579-2) 6.8 0.0-0.5 H [facility]villeer[facility] or plasma conjugated bilirubin measurement (mass/volume)2019-10-21 05:15:00* Test Item Value Reference Range Interpretation Comments Direct Bilirubin (test code = 85103-7) 6.8 0.0-0.5 [facility]villeerum or plasma conjugated bilirubin measurement (mass/volume)2019-10-21 05:15:00* Test Item Value Reference Range Interpretation Comments Direct Bilirubin (test code = 42580-0) 6.8 0.0-0.5 [facility]villeerum or plasma conjugated bilirubin measurement (mass/volume)2019-10-21 05:15:00* Test Item Value Reference Range Interpretation Comments Direct Bilirubin (test code = 83134-1) 6.8 0.0-0.5 [facility]villeerum or plasma conjugated bilirubin measurement (mass/volume)2019-10-21 05:15:00* Test Item Value Reference Range Interpretation Comments Direct Bilirubin (test code = 48495-2) 6.8 0.0-0.5 [facility]villeerum or plasma conjugated bilirubin measurement (mass/volume)2019-10-21 05:15:00* Test Item Value Reference Range Interpretation Comments Direct Bilirubin (test code = 87940-6) 6.8 0.0-0.5 [facility]fieldBlood gaueuok4095-64-99 11:35:00* Test Item Value Reference Range Interpretation Comments Blood Culture (test code = 01811111) NO GROWTH AFTER 5 DAYS, FINAL REPORT [facility] argigrw1438-88-16 11:35:00* Test Item Value Reference Range Interpretation Comments Blood Culture (test code = 03923692) NO GROWTH AFTER 5 DAYS, FINAL REPORT [facility]2020-03-22 11:35:00* Test Item Value Reference Range Interpretation Comments Blood Culture (test code = 98322651) NO GROWTH AFTER 5 DAYS, FINAL REPORT [facility] zveduod1746-58-09 11:35:00* Test Item Value Reference Range Interpretation Comments Blood Culture (test code = 16008616) NO GROWTH AFTER 5 DAYS, FINAL REPORT [facility]2020-03-22 11:35:00* Test Item Value Reference Range Interpretation Comments Blood Culture (test code = 09439273) NO GROWTH AFTER 5 DAYS, FINAL REPORT [facility]fieldChlamydia pneumoniae DNA (PCR)2019-10-20 05:32:00* Test Item Value Reference Range Interpretation Comments Chlamydia pneumoniae DNA (PCR) (test code = Chlamydia pneumoniae DNA (PCR)) NOT DETECTED NOT DETECT [facility]fieldInfluenza Type A (RT-PCR)2019-10-20 05:32:00* Test Item Value Reference Range Interpretation Comments Influenza Type A (RT-PCR) (test code = 558346248) NOT DETECTED NOT DETECT [facility]fieldMycoplasma pneumoniae (PCR)2019-10-20 05:32:00* Test Item Value Reference Range Interpretation Comments Mycoplasma pneumoniae (PCR) (test code = Mycoplasma pn eumoniae (PCR)) NOT DETECTED NOT DETECT [facility]fieldInfluenza Type B (RT-PCR)2019-10-20 05:32:00* Test Item Value Reference Range Interpretation Comments Influenza Type B (RT-PCR) (test code = 749719042) NOT DETECTED NOT DETECT [facility]fieldRespiratory Syncytial Virus (PCR) 2019-10-20 05:32:00* Test Item Value Reference Range Interpretation Comments Respiratory Syncytial Virus (PCR) (test code = 092793213) NO T DETECTED NOT DETECT [facility] MansfieldBordetella pertussis DNA (PCR)2019-10-20 05:32:00* Test Item Value Reference Range Interpretation Comments Bordetella pertussis DNA (PCR) (test code = 802849740) NOT DETEC SHAGGY NOT DETECT [facility]fieldParainfluenza Type 1 (PCR)2019-10-20 05:32:00* Test Item Value Reference Range Interpretation Comments Parainfluenza Type 1 (PCR) (test code = 188910146) NOT DETECTED NOT DETECT [facility]flu[facility] Type 2 (PCR)2019-10-20 05:32:00* Test Item Value Reference Range Interpretation Comments Parainfluenza Type 2 (PCR) (test code = 280031700) NOT DETECTED NOT DETECT [facility]fieldParainfluenza Type 3 (PCR)2019-10-20 05:32:00* Test Item Value Reference Range Interpretation Comments Parainfluenza Type 3 (PCR) (test code = 408809350) NOT DETECTED NOT DETECT [facility]fieldParainfluenza Type 4 (PCR)2019-10-20 05:32:00* Test Item Value Reference Range Interpretation Comments Parainfluenza Type 4 (PCR) (test code = Parainfluenza Type 4 (PCR)) NOT DETECTED NOT DETECT [facility]fieldRhinovirus (PCR)2019-10-20 05:32:00* Test Item Value Reference Range Interpretation Comments Rhinovirus (PCR) (test code = 242465477) NOT DETECTED NOT DETECT [facility] HospitalHuman Metapneumovirus (PCR)2019-10-20 05:32:00* Test Item Value Reference Range Interpretation Comments Human Metapneumovirus (PCR) (test code = 023047766) DETECTED NO T DETECT ABNORMALCHI [facility]land Memorial HospitalAdenovirus (PCR)2019-10-20 05:32:00* Test Item Value Reference Range Interpretation Comments Adenovirus (PCR) (test code = 522033608) NOT DETECTED NOT DETECT [facility]fieldCoronavirus Type HKU1 (PCR)2019-10-20 05:32:00* Test Item Value Reference Range Interpretation Comments Coronavirus Type HKU1 (PCR) (test code = Coronavirus T ype HKU1 (PCR)) NOT DETECTED NOT DETECT [facility]fieldCoronavirus Type NL63 (PCR)2019-10-20 05:32:00* Test Item Value Reference Range Interpretation Comments Coronavirus Type NL63 (PCR) (test code = Coronavirus T ype NL63 (PCR)) NOT DETECTED NOT DETECT [facility]fieldCoronavirus Type OC43 (PCR)2019-10-20 05:32:00* Test Item Value Reference Range Interpretation Comments Coronavirus Type OC43 (PCR) (test code = Coronavirus T ype OC43 (PCR)) NOT DETECTED NOT DETECT [facility]fieldCoronavirus Type 229E (PCR)2019-10-20 05:32:00* Test Item Value Reference Range Interpretation Comments Coronavirus Type 229E (PCR) (test code = Coronavirus T ype 229E (PCR)) NOT DETECTED NOT DETECT Test performed at [place] [address]RESULTS HAVE BEEN CALLED TO THE PHYSICIANTexas Health Hospital MansfieldCHEST SINGLE (PORTABLE)2019-10-19 10:26:00 [place] [address] Patient Name: VIOLETTE LAMB MR #: [id number] : 1965 Age/Sex: 54/M Req #: [id number] [facility] Physician: PAWEL SALVADOR MD Ordered by: PAWEL SALVADOR MD Report #: [id number] Location: [facility] Room/[place] [address] Procedure: [id number] -[id number] DX/CHEST SINGLE (PORTABLE) Exam [...] PAWEL SALVADOR MD Influenza Virus Types A,B Hftpfyk1909-68-93 09:17:00* Test Item Value Reference Range Interpretation Comments Influenza Virus Types A,B Antigen (test code = 15711-2) NEGATIVE NEGATIVE [facility]fieldInfluenza virus A and B antigen identification by gkdwykhhnzavogtqsv6945-22-81 08:45:00* Test Item Value Reference Range Interpretation Comments Influenza Virus Types A,B Antigen (test code = 65184-8) NEGATIVE NEGATIVE [facility]fieldFluoroscopic procedure less than one hour vlkdjekz6332-31-41 08:45:00* Test Item Value Reference Range Interpretation Comments Chlamydia pneumoniae DNA (PCR) (test code = Chlamydia pneumoniae DNA (PCR)) NOT DETECTED NOT DETECT [facility]fieldRespiratory virus wikcp0249-13-72 08:45:00* Test Item Value Reference Range Interpretation Comments Influenza Type A (RT-PCR) (test code = 017506778) NOT DETECTED NOT DETECT [facility]fieldFluoroscopic procedure less than one hour nbgumtdq0359-42-72 08:45:00* Test Item Value Reference Range Interpretation Comments Mycoplasma pneumoniae (PCR) (test code = Mycoplasma pn eumoniae (PCR)) NOT DETECTED NOT DETECT [facility]Res[facility] virus xemmu6945-89-79 08:45:00* Test Item Value Reference Range Interpretation Comments Influenza Type B (RT-PCR) (test code = 248421712) NOT DETECTED NOT DETECT [facility] CenterRespiratory virus hgzso9412-23-10 08:45:00* Test Item Value Reference Range Interpretation Comments Respiratory Syncytial Virus (PCR) (test code = 772045363) NO T DETECTED NOT DETECT [facility] hclme1216-87-02 08:45:00* Test Item Value Reference Range Interpretation Comments Bordetella pertussis DNA (PCR) (test code = 086601442) NOT DETEC SHAGGY NOT DETECT [facility] CenterRespiratory virus rifqp4154-37-64 08:45:00* Test Item Value Reference Range Interpretation Comments Parainfluenza Type 1 (PCR) (test code = 451068210) NOT DETECTED NOT DETECT [facility] CenterRespiratory virus kzfaa1501-89-81 08:45:00* Test Item Value Reference Range Interpretation Comments Parainfluenza Type 2 (PCR) (test code = 798576019) NOT DETECTED NOT DETECT [facility] virus tnrns1530-76-43 08:45:00* Test Item Value Reference Range Interpretation Comments Parainfluenza Type 3 (PCR) (test code = 545968929) NOT DETECTED NOT DETECT [facility] CenterFluoroscopic procedure less than one hour arzfxnpk1946-62-39 08:45:00* Test Item Value Reference Range Interpretation Comments Parainfluenza Type 4 (PCR) (test code = Parainfluenza Type 4 (PCR)) NOT DETECTED NOT DETECT [facility] CenterRespiratory virus lsqtz6421-97-98 08:45:00* Test Item Value Reference Range Interpretation Comments Rhinovirus (PCR) (test code = 347982653) NOT DETECTED NOT DETECT [facility] CenterRespiratory virus fhhau3859-50-76 08:45:00* Test Item Value Reference Range Interpretation Comments Human Metapneumovirus (PCR) (test code = 267060933) DETECTED NO T DETECT ABNORMALTexas Health Hospital MansfieldRespiratory virus swjbf7445-54-75 08:45:00* Test Item Value Reference Range Interpretation Comments Adenovirus (PCR) (test code = 473616160) NOT DETECTED NOT DETECT [facility]fieldFluoroscopic procedure less than one hour esmclldl1031-51-73 08:45:00* Test Item Value Reference Range Interpretation Comments Coronavirus Type 229E (PCR) (test code = Coronavirus T ype 229E (PCR)) NOT DETECTED NOT DETECT Test performed at [place] [address]RESULTS HAVE BEEN CALLED TO THE PHYSICIANTexas Health Hospital MansfieldFluoroscopic procedure less than one hour udgntzia2347-31-88 08:45:00* Test Item Value Reference Range Interpretation Comments Coronavirus Type HKU1 (PCR) (test code = Coronavirus T ype HKU1 (PCR)) NOT DETECTED NOT DETECT [facility]fieldFluoroscopic procedure less than one hour rwltlvfz8291-47-61 08:45:00* Test Item Value Reference Range Interpretation Comments Coronavirus Type NL63 (PCR) (test code = Coronavirus T ype NL63 (PCR)) NOT DETECTED NOT DETECT [facility]fieldFluoroscopic procedure less than one hour audodenw3200-57-60 08:45:00* Test Item Value Reference Range Interpretation Comments Coronavirus Type OC43 (PCR) (test code = Coronavirus T ype OC43 (PCR)) NOT DETECTED NOT DETECT [facility]fieldInfluenza virus A and B antigen identification by qievercfpcomqrjjuv4320-34-35 08:45:00* Test Item Value Reference Range Interpretation Comments Influenza Virus Types A,B Antigen (test code = 77095-6) NEGATIVE NEGATIVE [facility]fieldFluoroscopic procedure less than one hour mxpkqnrt5018-66-29 08:45:00* Test Item Value Reference Range Interpretation Comments Chlamydia pneumoniae DNA (PCR) (test code = Chlamydia pneumoniae DNA (PCR)) NOT DETECTED NOT DETECT [facility]fieldRespiratory virus lnqau4525-08-81 08:45:00* Test Item Value Reference Range Interpretation Comments Influenza Type A (RT-PCR) (test code = 293195589) NOT DETECTED NOT DETECT [facility] CenterFluoroscopic procedure less than one hour cjulmexv2704-11-41 08:45:00* Test Item Value Reference Range Interpretation Comments Mycoplasma pneumoniae (PCR) (test code = Mycoplasma pn eumoniae (PCR)) NOT DETECTED NOT DETECT [facility] CenterRespiratory virus cxawf3379-18-93 08:45:00* Test Item Value Reference Range Interpretation Comments Influenza Type B (RT-PCR) (test code = 488759483) NOT DETECTED NOT DETECT [facility] tlnmv4324-05-81 08:45:00* Test Item Value Reference Range Interpretation Comments Respiratory Syncytial Virus (PCR) (test code = 206744711) NO T DETECTED NOT DETECT [facility]iratory virus shsca4667-55-78 08:45:00* Test Item Value Reference Range Interpretation Comments Bordetella pertussis DNA (PCR) (test code = 116540866) NOT DETEC SHAGGY NOT DETECT [facility] HospitalRespiratory virus bbhyr5473-52-75 08:45:00* Test Item Value Reference Range Interpretation Comments Parainfluenza Type 1 (PCR) (test code = 829932161) NOT DETECTED NOT DETECT [facility] virus ijnyb6061-01-28 08:45:00* Test Item Value Reference Range Interpretation Comments Parainfluenza Type 2 (PCR) (test code = 346251964) NOT DETECTED NOT DETECT [facility] CenterRespiratory virus vxmpd0557-47-84 08:45:00* Test Item Value Reference Range Interpretation Comments Parainfluenza Type 3 (PCR) (test code = 636832136) NOT DETECTED NOT DETECT [facility] CenterFluoroscopic procedure less than one hour nwocasit0366-31-06 08:45:00* Test Item Value Reference Range Interpretation Comments Parainfluenza Type 4 (PCR) (test code = Parainfluenza Type 4 (PCR)) NOT DETECTED NOT DETECT [facility] CenterRespiratory virus pryfi5832-52-05 08:45:00* Test Item Value Reference Range Interpretation Comments Rhinovirus (PCR) (test code = 292030570) NOT DETECTED NOT DETECT [facility]fieldRespiratory virus iaulg4124-57-80 08:45:00* Test Item Value Reference Range Interpretation Comments Human Metapneumovirus (PCR) (test code = 973525310) DETECTED NO T DETECT ABNORMALCH[facility] HospitalRespiratory virus dslou5914-97-00 08:45:00* Test Item Value Reference Range Interpretation Comments Adenovirus (PCR) (test code = 949862720) NOT DETECTED NOT DETECT [facility]fieldFluoroscopic procedure less than one hour akgitjby3406-44-60 08:45:00* Test Item Value Reference Range Interpretation Comments Coronavirus Type 229E (PCR) (test code = Coronavirus T ype 229E (PCR)) NOT DETECTED NOT DETECT Test performed at [place] [address] 7030RESULTS HAVE BEEN CALLED TO THE PHYSICIANTexas Health Hospital MansfieldFluoroscopic procedure less than one hour jsukfdke6062-29-90 08:45:00* Test Item Value Reference Range Interpretation Comments Coronavirus Type HKU1 (PCR) (test code = Coronavirus T ype HKU1 (PCR)) NOT DETECTED NOT DETECT [facility]fieldFluoroscopic procedure less than one hour wfvwnhup0331-62-64 08:45:00* Test Item Value Reference Range Interpretation Comments Coronavirus Type NL63 (PCR) (test code = Coronavirus T ype NL63 (PCR)) NOT DETECTED NOT DETECT [facility]fieldFluoroscopic procedure less than one hour vnoixtyt9137-45-70 08:45:00* Test Item Value Reference Range Interpretation Comments Coronavirus Type OC43 (PCR) (test code = Coronavirus T ype OC43 (PCR)) NOT DETECTED NOT DETECT [facility]fieldInfluenza virus A and B antigen identification by lgqsoqagfsscgjvbai7772-78-23 08:45:00* Test Item Value Reference Range Interpretation Comments Influenza Virus Types A,B Antigen (test code = 16105-2) NEGATIVE NEGATIVE [facility]fieldFluoroscopic procedure less than one hour bfewjrmf0157-74-46 08:45:00* Test Item Value Reference Range Interpretation Comments Chlamydia pneumoniae DNA (PCR) (test code = Chlamydia pneumoniae DNA (PCR)) NOT DETECTED NOT DETECT [facility] HospitalRes[facility] robso9402-30-27 08:45:00* Test Item Value Reference Range Interpretation Comments Influenza Type A (RT-PCR) (test code = 169605313) NOT DETECTED NOT DETECT [facility] CenterFluoroscopic procedure less than one hour gllcgydz8262-62-06 08:45:00* Test Item Value Reference Range Interpretation Comments Mycoplasma pneumoniae (PCR) (test code = Mycoplasma pn eumoniae (PCR)) NOT DETECTED NOT DETECT [facility] CenterRespiratory virus syade7246-82-61 08:45:00* Test Item Value Reference Range Interpretation Comments Influenza Type B (RT-PCR) (test code = 867711244) NOT DETECTED NOT DETECT [facility] CenterRespiratory virus gwqus6555-10-76 08:45:00* Test Item Value Reference Range Interpretation Comments Respiratory Syncytial Virus (PCR) (test code = 266179840) NO T DETECTED NOT DETECT [facility] CenterRespiratory virus jmgsz8407-42-92 08:45:00* Test Item Value Reference Range Interpretation Comments Bordetella pertussis DNA (PCR) (test code = 300335381) NOT DETEC SHAGGY NOT DETECT [facility] virus ehtan4423-35-32 08:45:00* Test Item Value Reference Range Interpretation Comments Parainfluenza Type 1 (PCR) (test code = 474296529) NOT DETECTED NOT DETECT [facility] CenterRespiratory virus cpfer6696-46-34 08:45:00* Test Item Value Reference Range Interpretation Comments Parainfluenza Type 2 (PCR) (test code = 868251319) NOT DETECTED NOT DETECT [facility] virus nhado6178-91-56 08:45:00* Test Item Value Reference Range Interpretation Comments Parainfluenza Type 3 (PCR) (test code = 539543330) NOT DETECTED NOT DETECT [facility] HospitalFluoroscopic procedure less than one hour eqanttuz1047-69-62 08:45:00* Test Item Value Reference Range Interpretation Comments Parainfluenza Type 4 (PCR) (test code = Parainfluenza Type 4 (PCR)) NOT DETECTED NOT DETECT [facility]fieldRespiratory virus oyfzf1630-67-31 08:45:00* Test Item Value Reference Range Interpretation Comments Rhinovirus (PCR) (test code = 523084924) NOT DETECTED NOT DETECT [facility]fieldRespiratory virus uhadq6496-30-95 08:45:00* Test Item Value Reference Range Interpretation Comments Human Metapneumovirus (PCR) (test code = 029496135) DETECTED NO T DETECT ABNORMALTexas Health Hospital MansfieldRespiratory virus paqnw8196-87-61 08:45:00* Test Item Value Reference Range Interpretation Comments Adenovirus (PCR) (test code = 598864691) NOT DETECTED NOT DETECT [facility] MansfieldFluoroscopic procedure less than one hour qqijjxih2368-39-60 08:45:00* Test Item Value Reference Range Interpretation Comments Coronavirus Type 229E (PCR) (test code = Coronavirus T ype 229E (PCR)) NOT DETECTED NOT DETECT Test performed at [place] [address]RESULTS HAVE BE[facility]Fluoroscopic procedure less than one hour wsknkfrp4285-04-15 08:45:00* Test Item Value Reference Range Interpretation Comments Coronavirus Type HKU1 (PCR) (test code = Coronavirus T ype HKU1 (PCR)) NOT DETECTED NOT DETECT [facility] less than one hour raqjufzy5638-00-61 08:45:00* Test Item Value Reference Range Interpretation Comments Coronavirus Type NL63 (PCR) (test code = Coronavirus T ype NL63 (PCR)) NOT DETECTED NOT DETECT [facility]fieldFluoroscopic procedure less than one hour qshyfuut5420-75-40 08:45:00* Test Item Value Reference Range Interpretation Comments Coronavirus Type OC43 (PCR) (test code = Coronavirus T ype OC43 (PCR)) NOT DETECTED NOT DETECT [facility]fieldInfluenza virus A and B antigen identification by oxvgnhyrmtrawbolow8674-65-52 08:45:00* Test Item Value Reference Range Interpretation Comments Influenza Virus Types A,B Antigen (test code = 80533-5) NEGATIVE NEGATIVE [facility] pbnuzynx3892-37-82 08:45:00* Test Item Value Reference Range Interpretation Comments Chlamydia pneumoniae DNA (PCR) (test code = Chlamydia pneumoniae DNA (PCR)) NOT DETECTED NOT DETECT [facility] HospitalRes[facility] virus gwstx1581-79-25 08:45:00* Test Item Value Reference Range Interpretation Comments Influenza Type A (RT-PCR) (test code = 011405650) NOT DETECTED NOT DETECT [facility] HospitalFluoroscopic procedure less than one hour leurjifq9792-46-52 08:45:00* Test Item Value Reference Range Interpretation Comments Mycoplasma pneumoniae (PCR) (test code = Mycoplasma pn eumoniae (PCR)) NOT DETECTED NOT DETECT [facility] buhtw7803-59-65 08:45:00* Test Item Value Reference Range Interpretation Comments Influenza Type B (RT-PCR) (test code = 777927616) NOT DETECTED NOT DETECT [facility] HospitalRes[facility] virus ipcrp8365-23-31 08:45:00* Test Item Value Reference Range Interpretation Comments Respiratory Syncytial Virus (PCR) (test code = 200943567) NO T DETECTED NOT DETECT [facility] virus gxkky7205-13-14 08:45:00* Test Item Value Reference Range Interpretation Comments Bordetella pertussis DNA (PCR) (test code = 208785153) NOT DETEC SHAGGY NOT DETECT [facility] HospitalRes[facility] virus pcwxi9740-04-48 08:45:00* Test Item Value Reference Range Interpretation Comments Parainfluenza Type 1 (PCR) (test code = 638125621) NOT DETECTED NOT DETECT [facility] virus gmxwk5554-44-63 08:45:00* Test Item Value Reference Range Interpretation Comments Parainfluenza Type 2 (PCR) (test code = 955434208) NOT DETECTED NOT DETECT [facility] HospitalRes[facility] virus seztm5739-92-06 08:45:00* Test Item Value Reference Range Interpretation Comments Parainfluenza Type 3 (PCR) (test code = 138505145) NOT DETECTED NOT DETECT [facility]fieldFlu[facility] procedure less than one hour bjnurbif9265-43-48 08:45:00* Test Item Value Reference Range Interpretation Comments Parainfluenza Type 4 (PCR) (test code = Parainfluenza Type 4 (PCR)) NOT DETECTED NOT DETECT [facility]fieldRespiratory virus yegrg8874-86-37 08:45:00* Test Item Value Reference Range Interpretation Comments Rhinovirus (PCR) (test code = 747730778) NOT DETECTED NOT DETECT [facility]fieldRespiratory virus pzhmr9441-12-67 08:45:00* Test Item Value Reference Range Interpretation Comments Human Metapneumovirus (PCR) (test code = 013581462) DETECTED NO T DETECT [facility]AL[facility] HospitalRespiratory virus athmr4504-65-72 08:45:00* Test Item Value Reference Range Interpretation Comments Adenovirus (PCR) (test code = 325070470) NOT DETECTED NOT DETECT [facility]fieldFluoroscopic procedure less than one hour lpovcuiq7108-73-68 08:45:00* Test Item Value Reference Range Interpretation Comments Coronavirus Type 229E (PCR) (test code = Coronavirus T ype 229E (PCR)) NOT DETECTED NOT DETECT Test performed at [address] [address]RESULTS HAVE BEEN CALLED TO THE PHYSICIANCH[facility] HospitalFluoroscopic procedure less than one hour ijsjswds9663-04-64 08:45:00* Test Item Value Reference Range Interpretation Comments Coronavirus Type HKU1 (PCR) (test code = Coronavirus T ype HKU1 (PCR)) NOT DETECTED NOT DETECT [facility]fieldFlu[facility] procedure less than one hour ulwrtgwb2198-32-72 08:45:00* Test Item Value Reference Range Interpretation Comments Coronavirus Type NL63 (PCR) (test code = Coronavirus T ype NL63 (PCR)) NOT DETECTED NOT DETECT [facility]fieldFluoroscopic procedure less than one hour pvajikni3066-88-57 08:45:00* Test Item Value Reference Range Interpretation Comments Coronavirus Type OC43 (PCR) (test code = Coronavirus T ype OC43 (PCR)) NOT DETECTED NOT DETECT [facility]fieldInfluenza virus A and B antigen identification by pdhvqzmjwzjvuiiwuc4665-51-47 08:45:00* Test Item Value Reference Range Interpretation Comments Influenza Virus Types A,B Antigen (test code = 35901-8) NEGATIVE NEGATIVE [facility]fieldFluoroscopic procedure less than one hour rsgeunwf3732-56-60 08:45:00* Test Item Value Reference Range Interpretation Comments Chlamydia pneumoniae DNA (PCR) (test code = Chlamydia pneumoniae DNA (PCR)) NOT DETECTED NOT DETECT [facility]fieldRespiratory virus zvkgs3618-48-71 08:45:00* Test Item Value Reference Range Interpretation Comments Influenza Type A (RT-PCR) (test code = 214448782) NOT DETECTED NOT DETECT [facility]fieldFluoroscopic procedure less than one hour ciwoguvj5743-12-38 08:45:00* Test Item Value Reference Range Interpretation Comments Mycoplasma pneumoniae (PCR) (test code = Mycoplasma pn eumoniae (PCR)) NOT DETECTED NOT DETECT [facility]fieldRespiratory virus druva4865-50-73 08:45:00* Test Item Value Reference Range Interpretation Comments Influenza Type B (RT-PCR) (test code = 560559844) NOT DETECTED NOT DETECT [facility]fieldRespiratory virus mrqfy2298-81-03 08:45:00* Test Item Value Reference Range Interpretation Comments Respiratory Syncytial Virus (PCR) (test code = 655070415) NO T DETECTED NOT DETECT [facility]fieldRespiratory virus sqajz6205-56-76 08:45:00* Test Item Value Reference Range Interpretation Comments Bordetella pertussis DNA (PCR) (test code = 662387525) NOT DETEC SHAGGY NOT DETECT [facility]fieldRespiratory virus blyhb8688-83-29 08:45:00* Test Item Value Reference Range Interpretation Comments Parainfluenza Type 1 (PCR) (test code = 720997405) NOT DETECTED NOT DETECT [facility]fieldRespiratory virus ouayt6126-14-43 08:45:00* Test Item Value Reference Range Interpretation Comments Parainfluenza Type 2 (PCR) (test code = 486060750) NOT DETECTED NOT DETECT [facility]fieldRespiratory virus scryi6570-86-88 08:45:00* Test Item Value Reference Range Interpretation Comments Parainfluenza Type 3 (PCR) (test code = 343345763) NOT DETECTED NOT DETECT [facility]fieldFluoroscopic procedure less than one hour yfstdzxf9840-23-27 08:45:00* Test Item Value Reference Range Interpretation Comments Parainfluenza Type 4 (PCR) (test code = Parainfluenza Type 4 (PCR)) NOT DETECTED NOT DETECT [facility]fieldRespiratory virus sntzx7817-35-75 08:45:00* Test Item Value Reference Range Interpretation Comments Rhinovirus (PCR) (test code = 507878719) NOT DETECTED NOT DETECT [facility] wrstj3698-70-88 08:45:00* Test Item Value Reference Range Interpretation Comments Human Metapneumovirus (PCR) (test code = 685815779) DETECTED NO T DETECT ABNORMALCHI [facility] HospitalRespiratory virus shzfi2088-49-06 08:45:00* Test Item Value Reference Range Interpretation Comments Adenovirus (PCR) (test code = 110003713) NOT DETECTED NOT DETECT [facility]fieldFluoroscopic procedure less than one hour hxizfobm6256-71-78 08:45:00* Test Item Value Reference Range Interpretation Comments Coronavirus Type 229E (PCR) (test code = Coronavirus T ype 229E (PCR)) NOT DETECTED NOT DETECT Test performed [facility] [place] [address]RESULTS HAVE BEEN [facility]ED [facility]fieldFluoroscopic procedure less than one hour hyipfxfu1952-16-23 08:45:00* Test Item Value Reference Range Interpretation Comments Coronavirus Type HKU1 (PCR) (test code = Coronavirus T ype HKU1 (PCR)) NOT DETECTED NOT DETECT [facility]fieldFluoroscopic procedure less than one hour kiphbgea8378-19-21 08:45:00* Test Item Value Reference Range Interpretation Comments Coronavirus Type NL63 (PCR) (test code = Coronavirus T ype NL63 (PCR)) NOT DETECTED NOT DETECT [facility]fieldFluoroscopic procedure less than one hour vhgbhrhk4174-02-21 08:45:00* Test Item Value Reference Range Interpretation Comments Coronavirus Type OC43 (PCR) (test code = Coronavirus T ype OC43 (PCR)) NOT DETECTED NOT DETECT [facility]fieldDifferential Total Cells Counted 2019-10-19 08:02:00* Test Item Value Reference Range Interpretation Comments Differential Total Cells Counted (test code = Differen tial Total Cells Counted) 100 [facility]fieldNeutrophils % (Manual)2019-10-19 08:02:00 * Test Item Value Reference Range Interpretation Comments Neutrophils % (Manual) (test code = 84927-2) 83 40-74 H [facility]fieldLymphocytes % (Manual)2019-10-19 08:02:00 * Test Item Value Reference Range Interpretation Comments Lymphocytes % (Manual) (test code = 737-7) 6 19-48 L [facility]fieldMonocytes % (Manual)2019-10-19 08:02:00* Test Item Value Reference Range Interpretation Comments Monocytes % (Manual) (test code = 744-3) 6 3.4-9.0 [facility]fieldEosinophils % (Manual)2019-10-19 08:02:00 * Test Item Value Reference Range Interpretation Comments Eosinophils % (Manual) (test code = 714-6) 3 0-7 [facility]fieldBasophils % (Manual)2019-10-19 08:02:00* Test Item Value Reference Range Interpretation Comments Basophils % (Manual) (test code = 27939-5) 1 0-1.5 [facility]fieldMyelocytes %2019-10-19 08:02:00* Test Item Value Reference Range Interpretation Comments Myelocytes % (test code = 749-2) 1 0-0 H [facility]fieldPlatelet Rrtfargn5602-04-40 08:02:00* Test Item Value Reference Range Interpretation Comments Platelet Estimate (test code = 27373-2) MODERATELY DECREASED [facility]fieldAnisocytosis2020-03-21 08:02:00* Test Item Value Reference Range Interpretation Comments Anisocytosis (test code = 702-1) MODE [facility]fieldMacrocytosis2020-03-21 08:02:00* Test Item Value Reference Range Interpretation Comments Macrocytosis (test code = 738-5) SLIGHT [facility]fieldRed Cell Morphology Anxtjkd5364-25-01 08:02:00* Test Item Value Reference Range Interpretation Comments Red Cell Morphology Comment (test code = 6742-1) ABNORMAL [facility]fieldProthrombin Eldu0723-86-18 06:23:00* Test Item Value Reference Range Interpretation Comments Prothrombin Time (test code = 5902-2) 13.8 11.9-14.5 [facility]fieldProthromb Time International Ratio 2019-10-19 06:23:00* Test Item Value Reference Range Interpretation Comments Prothromb Time International Ratio (test code = 6301-6) 1.00 Oral Anticoagulant Therapy INR Values:1. Low Intensity Therapy 1.5 - 2.02 . Moderate Intensity Therapy 2.0 - 3.03. High Intensity Therapy(1) 2.5 - 3. 54. High Intensity Therapy(2) 3.0 - 4.05. Panic Value INR > 5.0 [facility]field[facility]2019-10-19 06:04:00 [place] [address] Patient Name: VIOLETTE LAMB MR #: [id number] : 1965 Age/Sex: 54/M Req #: [id number] Adm Physician: PAWEL SALVADOR MD Ordered by: PAWEL SALVADOR MD Report #: [id number] Location: MED/SURG Room/Bed: [facility] Procedure: [id number] -[id number] DX/CHEST SINGLE (PORTABLE) Exam [...] MD Fluoroscopic procedure less than one hour xgrewxgm3921-92-62 05:30:00* Test Item Value Reference Range Interpretation Comments Differential Total Cells Counted (test code = Differen tial Total Cells Counted) 100 [facility] blood neutrophils/100 leukocytes 2019-10-19 05:30:00* Test Item Value Reference Range Interpretation Comments Neutrophils % (Manual) (test code = 37122-3) 83 40-74 [facility] blood lymphocytes/100 leukocytes 2019-10-19 05:30:00* Test Item Value Reference Range Interpretation Comments Lymphocytes % (Manual) (test code = 737-7) 6 19-48 [facility] blood monocytes/100 leukocytes 2019-10-19 05:30:00* Test Item Value Reference Range Interpretation Comments Monocytes % (Manual) (test code = 744-3) 6 3.4-9.0 [facility] blood eosinophil count as percentage of total fapaqvhmdp7344-00-75 05:30:00* Test Item Value Reference Range Interpretation Comments Eosinophils % (Manual) (test code = 714-6) 3 0-7 [facility] basophil trhdirvuot7058-75-09 05:30:00* Test Item Value Reference Range Interpretation Comments Basophils % (Manual) (test code = 77582-7) 1 0-1.5 [facility] blood myelocytes/100 leukocytes 2019-10-19 05:30:00* Test Item Value Reference Range Interpretation Comments Myelocytes % (test code = 749-2) 1 0-0 [facility] platelets count by estimate (number/volume)2019-10-19 05:30:00* Test Item Value Reference Range Interpretation Comments Platelet Estimate (test code = 52892-3) MODERATELY DECREASED [facility] anisocytosis detection by light ttfwtszivy6073-10-52 05:30:00* Test Item Value Reference Range Interpretation Comments Anisocytosis (test code = 702-1) MODE [facility] macrocytes detection by light xkrolqptnx2049-68-89 05:30:00* Test Item Value Reference Range Interpretation Comments Macrocytosis (test code = 738-5) SLIGHT [facility]fieldRB nnwuxmlpbm2278-26-81 05:30:00* Test Item Value Reference Range Interpretation Comments Red Cell Morphology Comment (test code = 6742-1) ABNORMAL [facility]fieldFluoroscopic procedure less than one hour wemrizun2679-96-90 05:30:00* Test Item Value Reference Range Interpretation Comments Differential Total Cells Counted (test code = Jarret tial Total Cells Counted) 100 [facility] blood neutrophils/100 leukocytes 2019-10-19 05:30:00* Test Item Value Reference Range Interpretation Comments Neutrophils % (Manual) (test code = 24138-7) 83 40-74 [facility] blood lymphocytes/100 leukocytes 2019-10-19 05:30:00* Test Item Value Reference Range Interpretation Comments Lymphocytes % (Manual) (test code = 737-7) 6 19-48 [facility] blood monocytes/100 leukocytes 2019-10-19 05:30:00* Test Item Value Reference Range Interpretation Comments Monocytes % (Manual) (test code = 744-3) 6 3.4-9.0 [facility] blood eosinophil count as percentage of total ipbqakryne3753-45-09 05:30:00* Test Item Value Reference Range Interpretation Comments Eosinophils % (Manual) (test code = 714-6) 3 0-7 [facility]fieldManual basophil wkxlpdufzf9563-66-86 05:30:00* Test Item Value Reference Range Interpretation Comments Basophils % (Manual) (test code = 74081-9) 1 0-1.5 [facility] blood myelocytes/100 leukocytes 2019-10-19 05:30:00* Test Item Value Reference Range Interpretation Comments Myelocytes % (test code = 749-2) 1 0-0 [facility] platelets count by estimate (number/volume)2019-10-19 05:30:00* Test Item Value Reference Range Interpretation Comments Platelet Estimate (test code = 12703-5) MODERATELY DECREASED [facility] anisocytosis detection by light xrknbvmenx8879-53-78 05:30:00* Test Item Value Reference Range Interpretation Comments Anisocytosis (test code = 702-1) MODE [facility] macrocytes detection by light wsynnketeh3284-44-02 05:30:00* Test Item Value Reference Range Interpretation Comments Macrocytosis (test code = 738-5) SLIGHT [facility] MansfieldRBC wznrdkkfpj6483-07-59 05:30:00* Test Item Value Reference Range Interpretation Comments Red Cell Morphology Comment (test code = 6742-1) ABNORMAL [facility]fieldFluoroscopic procedure less than one hour uhgwwiog9796-97-10 05:30:00* Test Item Value Reference Range Interpretation Comments Differential Total Cells Counted (test code = Differherbert tial Total Cells Counted) 100 [facility] blood neutrophils/100 leukocytes 2019-10-19 05:30:00* Test Item Value Reference Range Interpretation Comments Neutrophils % (Manual) (test code = 06883-7) 83 40-74 [facility] blood lymphocytes/100 leukocytes 2019-10-19 05:30:00* Test Item Value Reference Range Interpretation Comments Lymphocytes % (Manual) (test code = 737-7) 6 19-48 [facility] blood monocytes/100 leukocytes 2019-10-19 05:30:00* Test Item Value Reference Range Interpretation Comments Monocytes % (Manual) (test code = 744-3) 6 3.4-9.0 [facility] blood eosinophil count as percentage of total crqdajwnaz5868-32-85 05:30:00* Test Item Value Reference Range Interpretation Comments Eosinophils % (Manual) (test code = 714-6) 3 0-7 [facility] basophil begtbcoatn3878-99-75 05:30:00* Test Item Value Reference Range Interpretation Comments Basophils % (Manual) (test code = 45797-4) 1 0-1.5 [facility] blood myelocytes/100 leukocytes 2019-10-19 05:30:00* Test Item Value Reference Range Interpretation Comments Myelocytes % (test code = 749-2) 1 0-0 [facility] platelets count by estimate (number/volume)2019-10-19 05:30:00* Test Item Value Reference Range Interpretation Comments Platelet Estimate (test code = 56457-0) MODERATELY DECREASED [facility] anisocytosis detection by light apnkkhpeaz4569-70-63 05:30:00* Test Item Value Reference Range Interpretation Comments Anisocytosis (test code = 702-1) MODE [facility] macrocytes detection by light viuyiinqur6302-02-89 05:30:00* Test Item Value Reference Range Interpretation Comments Macrocytosis (test code = 738-5) SLIGHT [facility]field[facility] imrqbfkila6608-11-92 05:30:00* Test Item Value Reference Range Interpretation Comments Red Cell Morphology Comment (test code = 6742-1) ABNORMAL [facility]fieldFluoroscopic procedure less than one hour eloydgpp6118-19-97 05:30:00* Test Item Value Reference Range Interpretation Comments Differential Total Cells Counted (test code = Jarret morrisl Total Cells Counted) 100 [facility] blood neutrophils/100 leukocytes 2019-10-19 05:30:00* Test Item Value Reference Range Interpretation Comments Neutrophils % (Manual) (test code = 15119-1) 83 40-74 [facility] blood lymphocytes/100 leukocytes 2019-10-19 05:30:00* Test Item Value Reference Range Interpretation Comments Lymphocytes % (Manual) (test code = 737-7) 6 19-48 [facility] blood monocytes/100 leukocytes 2019-10-19 05:30:00* Test Item Value Reference Range Interpretation Comments Monocytes % (Manual) (test code = 744-3) 6 3.4-9.0 [facility] blood eosinophil count as percentage of total azmqjjiysk2445-55-75 05:30:00* Test Item Value Reference Range Interpretation Comments Eosinophils % (Manual) (test code = 714-6) 3 0-7 [facility] basophil netpyvvuqb9722-63-64 05:30:00* Test Item Value Reference Range Interpretation Comments Basophils % (Manual) (test code = 30810-1) 1 0-1.5 [facility] blood myelocytes/100 leukocytes 2019-10-19 05:30:00* Test Item Value Reference Range Interpretation Comments Myelocytes % (test code = 749-2) 1 0-0 [facility] platelets count by estimate (number/volume)2019-10-19 05:30:00* Test Item Value Reference Range Interpretation Comments Platelet Estimate (test code = 24917-4) MODERATELY DECREASED [facility] anisocytosis detection by light zxzpgjsfdb7646-50-12 05:30:00* Test Item Value Reference Range Interpretation Comments Anisocytosis (test code = 702-1) MODE [facility] macrocytes detection by light zepywzpigt2250-14-76 05:30:00* Test Item Value Reference Range Interpretation Comments Macrocytosis (test code = 738-5) SLIGHT [facility]fieldRBC cziknvjbkg4933-26-82 05:30:00* Test Item Value Reference Range Interpretation Comments Red Cell Morphology Comment (test code = 6742-1) ABNORMAL [facility] blood eosinophil count as percentage of total ovaouxzjmz3232-87-14 05:30:00* Test Item Value Reference Range Interpretation Comments Eosinophils % (Manual) (test code = 714-6) 3 0-7 [facility]fieldMan[facility] basophil yrnmydwbuf4004-49-05 05:30:00* Test Item Value Reference Range Interpretation Comments Basophils % (Manual) (test code = 50276-8) 1 0-1.5 [facility] blood myelocytes/100 leukocytes 2019-10-19 05:30:00* Test Item Value Reference Range Interpretation Comments Myelocytes % (test code = 749-2) 1 0-0 [facility]field[facility] anisocytosis detection by light huuhfmpxmg4485-58-57 05:30:00* Test Item Value Reference Range Interpretation Comments Anisocytosis (test code = 702-1) [facility] macrocytes detection by light dkqukwoxek0177-87-77 05:30:00* Test Item Value Reference Range Interpretation Comments Macrocytosis (test code = 738-5) SLIGHT [facility]fieldProthrombin time (PT) in platelet poor plasma by coagulation yitgk9055-66-33 05:25:00* Test Item Value Reference Range Interpretation Comments Prothrombin Time (test code = 5902-2) 13.8 11.9-14.5 [facility]fieldINR in Platelet poor plasma by Coagulation ndtzt8178-87-02 05:25:00* Test Item Value Reference Range Interpretation Comments Prothromb Time International Ratio (test code = 6301-6) 1.00 Oral Anticoagulant Therapy INR Values:1. Low Intensity Therapy 1.5 - 2.02 . Moderate Intensity Therapy 2.0 - 3.03. High Intensity Therapy(1) 2.5 - 3. 54. High Intensity Therapy(2) 3.0 - 4.05. Panic Value INR > 5.0 [facility]fieldProthrombin time (PT) in platelet poor plasma by coagulation vwitr6931-62-00 05:25:00* Test Item Value Reference Range Interpretation Comments Prothrombin Time (test code = 5902-2) 13.8 11.9-14.5 [facility]fieldINR in Platelet poor plasma by Coagulation mchbc0706-52-09 05:25:00* Test Item Value Reference Range Interpretation Comments Prothromb Time International Ratio (test code = 6301-6) 1.00 Oral Anticoagulant Therapy INR Values:1. Low Intensity Therapy 1.5 - 2.02 . Moderate Intensity Therapy 2.0 - 3.03. High Intensity Therapy(1) 2.5 - 3. 54. High Intensity Therapy(2) 3.0 - 4.05. Panic Value INR > 5.0 [facility]fieldIndirect Wemzfcktk9040-51-33 03:39:00* Test Item Value Reference Range Interpretation Comments Indirect Bilirubin (test code = 1971-1) 2.9 0.3-1.2 H [facility]fieldFerritin2020-03-20 23:10:00* Test Item Value Reference Range Interpretation Comments Ferritin (test code = 2276-4) > 2000.00 21.81-274.66 [facility] [facility]fieldVitamin [facility]12 Tngcv1503-37-40 23:09:00* Test Item Value Reference Range Interpretation Comments Vitamin B12 Level (test code = 07700-1) 401 213-816 [facility]Folate2020-[facility] 23:09:00* Test Item Value Reference Range Interpretation Comments Folate (test code = 2284-8) 9.5 7.0-15.4 [facility]fieldPercent Reticulocyte Ejzno6570-64-65 22:26:00* Test Item Value Reference Range Interpretation Comments Percent Reticulocyte Count (test code = 46931-2) 5.5 0.8-2 .2 H [facility]fieldIron Apcqj3621-82-50 22:25:00* Test Item Value Reference Range Interpretation Comments Iron Level (test code = 2498-4) 47 65-175 L [facility]fieldTotal Iron Binding Eqovddvr4323-06-91 22:25:00* Test Item Value Reference Range Interpretation Comments Total Iron Binding Capacity (test code = 2500-7) 223 261-4 78 L [facility]fieldPercent Iron Btcceemsjc6836-14-19 22:25:00* Test Item Value Reference Range Interpretation Comments Percent Iron Saturation (test code = 2502-3) 21 15-50 [facility]fieldTransferrin2020-03-20 22:25:00* Test Item Value Reference Range Interpretation Comments Transferrin (test code = 3034-6) 159 174-364 L [facility]fieldQualitative serum or plasma hepatitis B virus e antibody by enzyme mqzprnqhrsq5464-50-66 21:30:00* Test Item Value Reference Range Interpretation Comments Hepatitis Be Antibody (test code = 08227-5) Negative Negative Performed at: - [address] [id number] Senior Safety Support Manager: Dasha Lr MD, Phone: [phone] [facility] Medical Center – Brownsvilleerum or plasma alpha 1 antitrypsin measurement (mass/volume) 2019-10-18 21:30:00* Test Item Value Reference Range Interpretation Comments Modmc-6-Ejoqlybqtwj (test code = 1825-9) 171 101-187 Performed at: - [address] [place] [id number] 4Lab Director: RACHELLE Singh MD, Phone: [phone] [facility] Center – Brownsvilleerum or plasma ceruloplasmin measurement (mass/volume)2019-10-18 21:30:00* Test Item Value Reference Range Interpretation Comments Ceruloplasmin (test code = 2064-4) 41.0 16.0-31.0 [facility]villeerum or plasma hepatitis B virus core antibody detection by nawnzxhsiko7398-52-54 21:30:00* Test Item Value Reference Range Interpretation Comments Hepatitis B Core Total Antibody (test code = 37917-2) Negative Negative [facility] Brownsvilleerum or plasma hepatitis A virus IgM antibody detection by iyvnuyzyzvb6105-23-79 21:30:00* Test Item Value Reference Range Interpretation Comments Hepatitis A IgM Antibody (test code = 65794-3) Negative [facility]villeerum or plasma hepatitis B virus surface antigen detection by hqlmjymrdad1366-28-04 21:30:00* Test Item Value Reference Range Interpretation Comments Hepatitis B Surface Antigen (test code = 5196-1) Negative [facility]villeerum or plasma hepatitis B virus core IgM antibody detection by abingpfvoyp4320-90-56 21:30:00* Test Item Value Reference Range Interpretation Comments Hepatitis B Core IgM Antibody (test code = 83701-3) Negative [facility]villeerum hepatitis C virus antibody guqvuwjql2525-05-98 21:30:00* Test Item Value Reference Range Interpretation Comments Hepatitis C Antibody (test code = 24685-0) <0.1 Reference Range: 0.0 - 0.9 s/co ratioNegative: < 0.8Indeterminate: 0.8 - 0.9Positive: > 0.9The CDC recommends that a positive HCV antibody resultbe followed up with a HCV Nucleic Acid Amplificationtest (741158).Testing performed by:[employer] [address] [id number]: Roe Contreras [facility] Hillcresterum mitochondria M2 IgG antibody assay (units/volume)2019-10-18 21:30:00* Test Item Value Reference Range Interpretation Comments Anti-Mitochondrial Antibody (test code = 29262-4) <20.0 0.0- 20.0 Negative 0.0 - 20.0 Equivocal 20.1 - 24.9 Positive > 24.9Mitochondrial (M2) Antibodies are found in 90-96% ofpatients with primary bi liary cirrhosis.Performed at: - [address] [id number] Director: Dasha Lr MD, Phone: [phone] Baptist Medical Center – Brownsvilleerum nuclear antibody titer by cnvrbqajiiidwsiosy6521-94-60 21:30:00* Test Item Value Reference Range Interpretation Comments Anti-Nuclear Antibody Screen (test code = 5048-4) Negative [facility]villeerum or plasma alkaline phosphatase measurement (enzymatic activity/volume)2019-10-18 21:30:00* Test Item Value Reference Range Interpretation Comments Alkaline Phosphatase (test code = 6768-6) 865 39-117 [facility]villeerum or plasma intestinal alkaline phosphatase/total alkaline phosphatase oiaqo9950-42-54 21:30:00* Test Item Value Reference Range Interpretation Comments Alkaline Phosphatase Iso-Intestine (test code = 12620-8) 0 0-18 Performed at: [facility] [address] [id number] Director: Roe Contreras MD, Phone: [phone] at: [address] [id number] Director: Dasha Lr MD, Ph one: [phone] Baptist Medical Center – Brownsvilleerum or plasma bone alkaline phosphatase/alkaline phosphatase.mhaeb8855-69-07 21:30:00* Test Item Value Reference Range Interpretation Comments Alkaline Phosphatase Iso-Bone (test code = 58985-6) 21 12 -68 [facility]villeerum or plasma liver alkaline phosphatase/total alkaline phosphatase ywwpd8836-04-59 21:30:00* Test Item Value Reference Range Interpretation Comments Alkaline Phosphatase Iso-Liver (test code = 79968-8) 79 1 3-88 [facility]fieldQualitative serum or plasma hepatitis B virus e antibody by enzyme exuvnfvqbff0512-62-85 21:30:00* Test Item Value Reference Range Interpretation Comments Hepatitis Be Antibody (test code = 45610-2) Negative Negative Performed at: [address] [id number] Senior Safety Support Manager: Dasha Lr MD, Phone: [phone] Baptist Medical Center – Brownsvilleerum or plasma alpha 1 antitrypsin measurement (mass/volume) 2019-10-18 21:30:00* Test Item Value Reference Range Interpretation Comments Okova-2-Wyukfwgvutd (test code = 1825-9) 171 101-187 Performed at: [facility] [address], [place], [place] [id number] 4Lab Director: RACHELLE Singh MD, Phone: [phone] Baptist Medical Center – Brownsvilleerum or plasma ceruloplasmin measurement (mass/volume)2019-10-18 21:30:00* Test Item Value Reference Range Interpretation Comments Ceruloplasmin (test code = 2064-4) 41.0 16.0-31.0 [facility]villeerum or plasma hepatitis B virus core antibody detection by ivurplkhldu4223-24-56 21:30:00* Test Item Value Reference Range Interpretation Comments Hepatitis B Core Total Antibody (test code = 10812-0) Negative Negative [facility]villeerum or plasma hepatitis A virus IgM antibody detection by mypmoitmcwp8345-50-36 21:30:00* Test Item Value Reference Range Interpretation Comments Hepatitis A IgM Antibody (test code = 53475-2) Negative [facility]villeerum or plasma hepatitis B virus surface antigen detection by mxxbwiujphc3218-82-34 21:30:00* Test Item Value Reference Range Interpretation Comments Hepatitis B Surface Antigen (test code = 5196-1) Negative [facility]villeerum or plasma hepatitis B virus core IgM antibody detection by cgdcrqzecpi0340-87-89 21:30:00* Test Item Value Reference Range Interpretation Comments Hepatitis B Core IgM Antibody (test code = 07977-7) Negative [facility]villeerum hepatitis C virus antibody jacdgzbwo9285-14-78 21:30:00* Test Item Value Reference Range Interpretation Comments Hepatitis C Antibody (test code = 06851-0) <0.1 Reference Range: 0.0 - 0.9 s/co ratioNegative: < 0.8Indeterminate: 0.8 - 0.9Positive: > 0.9The CDC recommends that a positive HCV antibody resultbe followed up with a HCV Nucleic Acid Amplificationtest (550355).Testing performed by:[facility] [address] [place], [place] [phone]: Roe Contreras [facility] Hillcresterum mitochondria M2 IgG antibody assay (units/volume)2019-10-18 21:30:00* Test Item Value Reference Range Interpretation Comments Anti-Mitochondrial Antibody (test code = 97527-8) <20.0 0.0- 20.0 Negative 0.0 - 20.0 Equivocal 20.1 - 24.9 Positive > 24.9Mitochondrial (M2) Antibodies are found in 90-96% ofpatients with primary bi liary cirrhosis.Performed at: [facility] [address] [id number] Director: Dasha Lr MD, Phone: [phone] Baptist Medical Center – Brownsvilleerum nuclear antibody titer by rojiexrcmsmzjirsep5003-48-08 21:30:00* Test Item Value Reference Range Interpretation Comments Anti-Nuclear Antibody Screen (test code = 5048-4) Negative [facility]villeerum or plasma alkaline phosphatase measurement (enzymatic activity/volume)2019-10-18 21:30:00* Test Item Value Reference Range Interpretation Comments Alkaline Phosphatase (test code = 6768-6) 865 39-117 [facility]villeerum or plasma intestinal alkaline phosphatase/total alkaline phosphatase etazs8370-71-22 21:30:00* Test Item Value Reference Range Interpretation Comments Alkaline Phosphatase Iso-Intestine (test code = 10455-3) 0 0-18 Performed at: [facility] [address] [id number] Director: Roe Contreras MD, Phone: [phone] at: [address] [id number] Director: Dasha Lr MD, Ph one: [phone] [facility] Medical Center – Brownsvilleerum or plasma bone alkaline phosphatase/alkaline phosphatase.qpyae4663-53-37 21:30:00* Test Item Value Reference Range Interpretation Comments Alkaline Phosphatase Iso-Bone (test code = 98917-2) 21 12 -68 [facility]villeerum or plasma liver alkaline phosphatase/total alkaline phosphatase apunu6161-88-01 21:30:00* Test Item Value Reference Range Interpretation Comments Alkaline Phosphatase Iso-Liver (test code = 56740-6) 79 1 3-88 [facility]fieldQualitative serum or plasma hepatitis B virus e antibody by enzyme oaxdqydzqvy5282-55-00 21:30:00* Test Item Value Reference Range Interpretation Comments Hepatitis Be Antibody (test code = 23581-2) Negative Negative Performed at: [facility] [address] [id number] Senior Safety Support Manager: Dasha Lr MD, Phone: [phone] Baptist Medical Center – Brownsvilleerum or plasma alpha 1 antitrypsin measurement (mass/volume) 2019-10-18 21:30:00* Test Item Value Reference Range Interpretation Comments Yveaa-2-Ksoharoypuv (test code = 1825-9) 171 101-187 Performed at: [facility] [address], [place], [place] [id number] 4Lab Director: RACHELLE Singh MD, Phone: [phone] Baptist Medical Center – Brownsvilleerum or plasma ceruloplasmin measurement (mass/volume)2019-10-18 21:30:00* Test Item Value Reference Range Interpretation Comments Ceruloplasmin (test code = 2064-4) 41.0 16.0-31.0 [facility]villeerum or plasma hepatitis B virus core antibody detection by dyngrkmmdvp4975-14-71 21:30:00* Test Item Value Reference Range Interpretation Comments Hepatitis B Core Total Antibody (test code = 04170-2) Negative Negative [facility]villeerum or plasma hepatitis A virus IgM antibody detection by epueohrhnsh4093-28-35 21:30:00* Test Item Value Reference Range Interpretation Comments Hepatitis A IgM Antibody (test code = 48666-5) Negative [facility]villeerum or plasma hepatitis B virus surface antigen detection by vaqujcavvpp1900-31-55 21:30:00* Test Item Value Reference Range Interpretation Comments Hepatitis B Surface Antigen (test code = 5196-1) Negative [facility]villeerum or plasma hepatitis B virus core IgM antibody detection by qlnvlmqwixn3127-56-46 21:30:00* Test Item Value Reference Range Interpretation Comments Hepatitis B Core IgM Antibody (test code = 16706-0) Negative [facility]villeerum hepatitis C virus antibody fswvfsmrg9625-04-51 21:30:00* Test Item Value Reference Range Interpretation Comments Hepatitis C Antibody (test code = 55380-6) <0.1 Reference Range: 0.0 - 0.9 s/co ratioNegative: < 0.8Indeterminate: 0.8 - 0.9Positive: > 0.9The CDC recommends that a positive HCV antibody resultbe followed up with a HCV Nucleic Acid Amplificationtest (833403).Testing performed by:[employer] [address] [phone]: Roe Contreras [facility] Hillcresterum mitochondria M2 IgG antibody assay (units/volume)2019-10-18 21:30:00* Test Item Value Reference Range Interpretation Comments Anti-Mitochondrial Antibody (test code = 15869-3) <20.0 0.0- 20.0 Negative 0.0 - 20.0 Equivocal 20.1 - 24.9 Positive > 24.9Mitochondrial (M2) Antibodies are found in 90-96% ofpatients with primary bi liary cirrhosis.Performed at: [address] [id number] Director: Dasha Lr MD, Phone: [phone] Baptist Medical Center – Brownsvilleerum nuclear antibody titer by eascdhwmdlpcohzjzm1077-41-06 21:30:00* Test Item Value Reference Range Interpretation Comments Anti-Nuclear Antibody Screen (test code = 5048-4) Negative [facility]villeerum or plasma alkaline phosphatase measurement (enzymatic activity/volume)2019-10-18 21:30:00* Test Item Value Reference Range Interpretation Comments Alkaline Phosphatase (test code = 6768-6) 865 39-117 [facility]villeerum or plasma intestinal alkaline phosphatase/total alkaline phosphatase oggie2243-58-06 21:30:00* Test Item Value Reference Range Interpretation Comments Alkaline Phosphatase Iso-Intestine (test code = 10041-2) 0 0-18 Performed at: [facility] [address] [id number] Director: Roe Contreras MD, Phone: [phone] at: [facility] [address] [place], [place] [id number] Director: Dasha Lr MD, Ph one: [phone] Baptist Medical Center – Brownsvilleerum or plasma bone alkaline phosphatase/alkaline phosphatase.wefrd6595-84-55 21:30:00* Test Item Value Reference Range Interpretation Comments Alkaline Phosphatase Iso-Bone (test code = 00229-0) 21 12 -68 [facility]villeerum or plasma liver alkaline phosphatase/total alkaline phosphatase pbbdz6412-76-40 21:30:00* Test Item Value Reference Range Interpretation Comments Alkaline Phosphatase Iso-Liver (test code = 83911-0) 79 1 3-88 [facility]fieldQualitative serum or plasma hepatitis B virus e antibody by enzyme xovhwnwofvn0204-78-10 21:30:00* Test Item Value Reference Range Interpretation Comments Hepatitis Be Antibody (test code = 19316-9) Negative Negative Performed at: [employer] [id number] Senior Safety Support Manager: Dasha Lr MD, Phone: [phone] Baptist Medical Center – Brownsvilleerum or plasma alpha 1 antitrypsin measurement (mass/volume) 2019-10-18 21:30:00* Test Item Value Reference Range Interpretation Comments Zdvbv-0-Crbyoncddvx (test code = 1825-9) 171 101-187 Performed at: [employer] [facility] [id number] 4Lab Director: RACHELLE Singh MD, Phone: [phone] Baptist Medical Center – Brownsvilleerum or plasma ceruloplasmin measurement (mass/volume)2019-10-18 21:30:00* Test Item Value Reference Range Interpretation Comments Ceruloplasmin (test code = 2064-4) 41.0 16.0-31.0 [facility]villeerum or plasma hepatitis B virus core antibody detection by zaueryeegfq2731-40-77 21:30:00* Test Item Value Reference Range Interpretation Comments Hepatitis B Core Total Antibody (test code = 45585-5) Negative Negative [facility]villeerum or plasma hepatitis A virus IgM antibody detection by bewlslctblk7723-20-54 21:30:00* Test Item Value Reference Range Interpretation Comments Hepatitis A IgM Antibody (test code = 76905-4) Negative [facility]villeerum or plasma hepatitis B virus surface antigen detection by hinlqbemnmh3560-86-25 21:30:00* Test Item Value Reference Range Interpretation Comments Hepatitis B Surface Antigen (test code = 5196-1) Negative [facility]villeerum or plasma hepatitis B virus core IgM antibody detection by frnscnpiseb8538-96-08 21:30:00* Test Item Value Reference Range Interpretation Comments Hepatitis B Core IgM Antibody (test code = 86941-2) Negative [facility]villeerum hepatitis C virus antibody ftngqugjz7115-64-23 21:30:00* Test Item Value Reference Range Interpretation Comments Hepatitis C Antibody (test code = 65950-7) <0.1 Reference Range: 0.0 - 0.9 s/co ratioNegative: < 0.8Indeterminate: 0.8 - 0.9Positive: > 0.9The CDC recommends that a positive HCV antibody resultbe followed up with a HCV Nucleic Acid Amplificationtest (341445).Testing performed by:[employer] [address] [phone]: Roe Contreras [facility] Hillcresterum mitochondria M2 IgG antibody assay (units/volume)2019-10-18 21:30:00* Test Item Value Reference Range Interpretation Comments Anti-Mitochondrial Antibody (test code = 53195-2) <20.0 0.0- 20.0 Negative 0.0 - 20.0 Equivocal 20.1 - 24.9 Positive > 24.9Mitochondrial (M2) Antibodies are found in 90-96% ofpatients with primary bi liary cirrhosis.Performed at: [facility] [place]lyN[place] [address] [place], [place] [id number] Director: Dasha Lr MD, Phone: [phone] Baptist Medical Center – Brownsvilleerum nuclear antibody titer by jnhdtczztsvtdzqlms4710-19-63 21:30:00* Test Item Value Reference Range Interpretation Comments Anti-Nuclear Antibody Screen (test code = 5048-4) Negative [facility]villeerum or plasma alkaline phosphatase measurement (enzymatic activity/volume)2019-10-18 21:30:00* Test Item Value Reference Range Interpretation Comments Alkaline Phosphatase (test code = 6768-6) 865 39-117 [facility]villeerum or plasma intestinal alkaline phosphatase/total alkaline phosphatase awquv0652-73-76 21:30:00* Test Item Value Reference Range Interpretation Comments Alkaline Phosphatase Iso-Intestine (test code = 54033-1) 0 0-18 Performed at: - [employer] [id number] Director: Roe Contreras MD, Phone: [phone] at: [address] [id number] Director: Dasha Lr MD, Ph one: [phone] Baptist Medical Center – Brownsvilleerum or plasma bone alkaline phosphatase/alkaline phosphatase.wtfkj2923-32-20 21:30:00* Test Item Value Reference Range Interpretation Comments Alkaline Phosphatase Iso-Bone (test code = 24823-1) 21 [facility]villeerum or plasma liver alkaline phosphatase/total alkaline phosphatase taxee8641-32-39 21:30:00* Test Item Value Reference Range Interpretation Comments Alkaline Phosphatase Iso-Liver (test code = 89096-1) 79 1 3-88 [facility]fieldQualitative serum or plasma hepatitis B virus e antibody by enzyme qhzhbqkefxf0476-08-86 21:30:00* Test Item Value Reference Range Interpretation Comments Hepatitis Be Antibody (test code = 30604-1) Negative Negative Performed at: [address] [id number] Senior Safety Support Manager: Dasha Lr MD, Phone: [phone] Baptist Medical Center – Brownsvilleerum or plasma alpha 1 antitrypsin measurement (mass/volume) 2019-10-18 21:30:00* Test Item Value Reference Range Interpretation Comments Srqnj-0-Qaurkprarbc (test code = 1825-9) 171 101-187 Performed at: [facility] [address], [place] [id number] 4Lab Director: RACHELLE Singh MD, Phone: [phone] Baptist Medical Center – Brownsvilleerum or plasma ceruloplasmin measurement (mass/volume)2019-10-18 21:30:00* Test Item Value Reference Range Interpretation Comments Ceruloplasmin (test code = 2064-4) 41.0 16.0-31.0 [facility]villeerum or plasma hepatitis B virus core antibody detection by fmgqvanpzch9298-17-02 21:30:00* Test Item Value Reference Range Interpretation Comments Hepatitis B Core Total Antibody (test code = 09501-7) Negative Negative [facility]villeerum or plasma hepatitis A virus IgM antibody detection by dhbfwfekxwv5192-37-80 21:30:00* Test Item Value Reference Range Interpretation Comments Hepatitis A IgM Antibody (test code = 90424-4) Negative [facility]villeerum or plasma hepatitis B virus surface antigen detection by tdwxippfzhw0794-28-33 21:30:00* Test Item Value Reference Range Interpretation Comments Hepatitis B Surface Antigen (test code = 5196-1) Negative [facility]villeerum or plasma hepatitis B virus core IgM antibody detection by pubvyuidapk8000-24-89 21:30:00* Test Item Value Reference Range Interpretation Comments Hepatitis B Core IgM Antibody (test code = 37589-8) Negative [facility]villeerum hepatitis C virus antibody kswetcrpt2668-13-73 21:30:00* Test Item Value Reference Range Interpretation Comments Hepatitis C Antibody (test code = 15197-9) <0.1 Reference Range: 0.0 - 0.9 s/co ratioNegative: < 0.8Indeterminate: 0.8 - 0.9Positive: > 0.9The CDC recommends that a positive HCV antibody resultbe followed up with a HCV Nucleic Acid Amplificationtest (817145).Testing performed by:[facility] [id number]: Roe Contreras [facility] Hillcresterum mitochondria M2 IgG antibody assay (units/volume)2019-10-18 21:30:00* Test Item Value Reference Range Interpretation Comments Anti-Mitochondrial Antibody (test code = 16176-2) <20.0 0.0- 20.0 Negative 0.0 - 20.0 Equivocal 20.1 - 24.9 Positive > 24.9Mitochondrial (M2) Antibodies are found in 90-96% ofpatients with primary bi liary cirrhosis.Performed at: - [address] [id number] Director: Dasha Lr MD, Phone: [phone] [facility] Center – Brownsvilleerum nuclear antibody titer by qcxsyctzxwwkbcejxc6965-37-14 21:30:00* Test Item Value Reference Range Interpretation Comments Anti-Nuclear Antibody Screen (test code = 5048-4) Negative [facility]villeerum or plasma alkaline phosphatase measurement (enzymatic activity/volume)2019-10-18 21:30:00* Test Item Value Reference Range Interpretation Comments Alkaline Phosphatase (test code = 6768-6) 865 39-117 [facility]villeerum or plasma intestinal alkaline phosphatase/total alkaline phosphatase vzgnf6978-97-84 21:30:00* Test Item Value Reference Range Interpretation Comments Alkaline Phosphatase Iso-Intestine (test code = 18081-4) 0 0-18 Performed at: [facility] [id number] Director: Roe Contreras MD, Phone: [phone] at: - [facility] [id number] Director: Dasha Lr MD, Ph one: [phone] Baptist Medical Center – Brownsvilleerum or plasma bone alkaline phosphatase/alkaline phosphatase.ocxpk2454-40-84 21:30:00* Test Item Value Reference Range Interpretation Comments Alkaline Phosphatase Iso-Bone (test code = 28552-8) 21 12 -68 [facility]villeerum or plasma liver alkaline phosphatase/total alkaline phosphatase kbtvg7752-68-95 21:30:00* Test Item Value Reference Range Interpretation Comments Alkaline Phosphatase Iso-Liver (test code = 02936-0) 79 1 3-88 [facility]2019-10-18 21:01:[address] [place] [address] Patient Name: VIOLETTE LAMB MR #: [id number] : 1965 Age/Sex: 54/M Req #: [id number] Adm Physician: PAWEL SALVADOR MD Ordered by: PAWEL SALVADOR MD Report #: [id number] Location: MED/SURG Room/Bed: [facility] Procedure: [id number] DX/CHEST SINGLE (PORTABLE) Exam [...] 10/18/192102 COPY TO: PAWEL SALVADOR MD Creatine Kgheyb1143-97-08 14:56:00* Test Item Value Reference Range Interpretation Comments Creatine Kinase (test code = 2157-6) 38 30-200 [place] [facility]fieldCreat[facility] Kin[facility] [id number] 14:56:00* Test Item Value Reference Range Interpretation Comments Creatine Kinase MB (test code = 57339-6) 1.20 0-5.0 [facility] [id number] 14:56:00* Test Item Value Reference Range Interpretation Comments Troponin I (test code = RMV4017) 0.059 0-0.300 [facility]Act[facility] Partial Thromboplast Time 2019-10-18 13:15:00* Test Item Value Reference Range Interpretation Comments Activated Partial Thromboplast Time (test code = 80828-0) 30.1 23.8-35.5 [facility]fieldAutomated reticulocyte count as percentage of total dxpvzmdwrdcu9237-76-52 12:40:00* Test Item Value Reference Range Interpretation Comments Percent Reticulocyte Count (test code = 51499-9) 5.5 0.8-2 .2 [facility]fieldActivated partial thromboplastin time (aPTT) in platelet poor plasma by coagulation gmahc1457-89-90 12:40:00* Test Item Value Reference Range Interpretation Comments Activated Partial Thromboplast Time (test code = 04466-3) 30.1 23.8-35.5 [facility] iron measurement (mass/volume)2019-10-18 12:40:00* Test Item Value Reference Range Interpretation Comments Iron Level (test code = 2498-4) 47 65-175 [facility]ville[facility] plasma iron binding capacity measurement (mass/volume)2019-10-18 12:40:00* Test Item Value Reference Range Interpretation Comments Total Iron Binding Capacity (test code = 2500-7) 223 261-4 78 [facility]ville[facility]um or plasma iron saturation measurement (mass fraction)2019-10-18 12:40:00* Test Item Value Reference Range Interpretation Comments Percent Iron Saturation (test code = 2502-3) 21 15-50 [facility] or plasma transferrin measurement (mass/volume)2019-10-18 12:40:00* Test Item Value Reference Range Interpretation Comments Transferrin (test code = 3034-6) 159 174-364 [facility] or plasma ferritin measurement (mass/volume)2019-10-18 12:40:00* Test Item Value Reference Range Interpretation Comments Ferritin (test code = 2276-4) > 2000.00 21.81-274.66 [facility] or plasma indirect bilirubin measurement (mass/volume)2019-10-18 12:40:00* Test Item Value Reference Range Interpretation Comments Indirect Bilirubin (test code = 1971-1) 2.9 0.3-1.2 [facility] or plasma creatine kinase measurement (enzymatic activity/volume)2019-10-18 12:40:00* Test Item Value Reference Range Interpretation Comments Creatine Kinase (test code = 2157-6) 38 30-200 [facility]ville[facility] or plasma creatine kinase MB measurement (mass/volume)2019-10-18 12:40:00* Test Item Value Reference Range Interpretation Comments Creatine Kinase MB (test code = 22698-5) 1.20 0-5.0 [facility]fieldT[facility] I measurement by highly sensitive enzyme ebkfclovcjq0089-17-94 12:40:00* Test Item Value Reference Range Interpretation Comments Troponin I (test code = 82439-7) 0.059 0-0.300 [facility]Blood cobalamin (vitamin B12) measurement (mass/volume)2019-10-18 12:40:00* Test Item Value Reference Range Interpretation Comments Vitamin B12 Level (test code = 18073-0) 401 213-816 [facility] or plasma folate measurement (mass/volume)2019-10-18 12:40:00* Test Item Value Reference Range Interpretation Comments Folate (test code = 2284-8) 9.5 7.0-15.4 [facility]fieldAutomated reticulocyte count as percentage of total trlsqcjhrtyz2265-91-89 12:40:00* Test Item Value Reference Range Interpretation Comments Percent Reticulocyte Count (test code = 92997-1) 5.5 0.8-2 .2 [facility]fieldAct[facility] partial thromboplastin time (aPTT) in platelet poor plasma by coagulation [id number] 12:40:00* Test Item Value Reference Range Interpretation Comments Activated Partial Thromboplast Time (test code = 02027-7) 30.1 23.8-35.5 [facility] iron measurement (mass/volume)2019-10-18 12:40:00* Test Item Value Reference Range Interpretation Comments Iron Level (test code = 2498-4) 47 65-175 [facility]er[facility] or plasma iron binding capacity measurement (mass/volume)2019-10-18 12:40:00* Test Item Value Reference Range Interpretation Comments Total Iron Binding Capacity (test code = 2500-7) 223 261-4 78 [facility]villeerum or plasma iron saturation measurement (mass fraction)2019-10-18 12:40:00* Test Item Value Reference Range Interpretation Comments Percent Iron Saturation (test code = 2502-3) 21 15-50 [facility]er[facility] or plasma transferrin measurement (mass/volume)2019-10-18 12:40:00* Test Item Value Reference Range Interpretation Comments Transferrin (test code = 3034-6) 159 174-364 [facility]erum or plasma ferritin measurement (mass/volume)2019-10-18 12:40:00* Test Item Value Reference Range Interpretation Comments Ferritin (test code = 2276-4) > 2000.00 21.81-274.66 [facility]er[facility] or plasma indirect bilirubin measurement (mass/volume)2019-10-18 12:40:00* Test Item Value Reference Range Interpretation Comments Indirect Bilirubin (test code = 1971-1) 2.9 0.3-1.2 [facility] or plasma creatine kinase measurement (enzymatic activity/volume)2019-10-18 12:40:00* Test Item Value Reference Range Interpretation Comments Creatine Kinase (test code = 2157-6) 38 30-200 [facility]villeerum or plasma creatine kinase MB measurement (mass/volume)2019-10-18 12:40:00* Test Item Value Reference Range Interpretation Comments Creatine Kinase MB (test code = 66689-9) 1.20 0-5.0 [facility]fieldT[facility] I measurement by highly sensitive enzyme chuwdustjwx6598-16-48 12:40:00* Test Item Value Reference Range Interpretation Comments Troponin I (test code = 61490-0) 0.059 0-0.300 [facility]fieldBlood cobalamin (vitamin B12) measurement (mass/volume)2019-10-18 12:40:00* Test Item Value Reference Range Interpretation Comments Vitamin B12 Level (test code = 50193-8) 401 213-816 [facility]er[facility] or plasma folate measurement (mass/volume)2019-10-18 12:40:00* Test Item Value Reference Range Interpretation Comments Folate (test code = 2284-8) 9.5 7.0-15.4 [facility]fieldAutomated reticulocyte count as percentage of total fpnaqvajmqxt5541-32-18 12:40:00* Test Item Value Reference Range Interpretation Comments Percent Reticulocyte Count (test code = 26231-0) 5.5 0.8-2 .2 [facility] or plasma iron measurement (mass/volume)2019-10-18 12:40:00* Test Item Value Reference Range Interpretation Comments Iron Level (test code = 2498-4) 47 65-175 [facility]erum or plasma iron binding capacity measurement (mass/volume)2019-10-18 12:40:00* Test Item Value Reference Range Interpretation Comments Total Iron Binding Capacity (test code = 2500-7) 223 261-4 78 [facility]villeerum or plasma iron saturation measurement (mass fraction)2019-10-18 12:40:00* Test Item Value Reference Range Interpretation Comments Percent Iron Saturation (test code = 2502-3) 21 15-50 [facility]er[facility] or plasma transferrin measurement (mass/volume)2019-10-18 12:40:00* Test Item Value Reference Range Interpretation Comments Transferrin (test code = 3034-6) 159 174-364 [facility]erum or plasma ferritin measurement (mass/volume)2019-10-18 12:40:00* Test Item Value Reference Range Interpretation Comments Ferritin (test code = 2276-4) > 2000.00 21.81-274.66 [facility]er[facility] or plasma indirect bilirubin measurement (mass/volume)2019-10-18 12:40:00* Test Item Value Reference Range Interpretation Comments Indirect Bilirubin (test code = 1971-1) 2.9 0.3-1.2 [facility]er[facility] or plasma creatine kinase measurement (enzymatic activity/volume)2019-10-18 12:40:00* Test Item Value Reference Range Interpretation Comments Creatine Kinase (test code = 2157-6) 38 30-200 [facility]villeerum or plasma creatine kinase MB measurement (mass/volume)2019-10-18 12:40:00* Test Item Value Reference Range Interpretation Comments Creatine Kinase MB (test code = 62388-8) 1.20 0-5.0 [facility]fieldT[facility] I measurement by highly sensitive enzyme amngweosaqu8564-23-13 12:40:00* Test Item Value Reference Range Interpretation Comments Troponin I (test code = 37719-1) 0.059 0-0.300 [facility]fieldBlood cobalamin (vitamin B12) measurement (mass/volume)2019-10-18 12:40:00* Test Item Value Reference Range Interpretation Comments Vitamin B12 Level (test code = 95146-3) 401 213-816 [facility]er[facility] or plasma folate measurement (mass/volume)2019-10-18 12:40:00* Test Item Value Reference Range Interpretation Comments Folate (test code = 2284-8) 9.5 7.0-15.4 [facility]fieldAutomated reticulocyte count as percentage of total jgxloybrvxwu2094-98-31 12:40:00* Test Item Value Reference Range Interpretation Comments Percent Reticulocyte Count (test code = 78014-3) 5.5 0.8-2 .2 [facility] or plasma iron measurement (mass/volume)2019-10-18 12:40:00* Test Item Value Reference Range Interpretation Comments Iron Level (test code = 2498-4) 47 65-175 [facility]erum or plasma iron binding capacity measurement (mass/volume)2019-10-18 12:40:00* Test Item Value Reference Range Interpretation Comments Total Iron Binding Capacity (test code = 2500-7) 223 261-4 78 [facility]villeerum or plasma iron saturation measurement (mass fraction)2019-10-18 12:40:00* Test Item Value Reference Range Interpretation Comments Percent Iron Saturation (test code = 2502-3) 21 15-50 [facility]er[facility] or plasma transferrin measurement (mass/volume)2019-10-18 12:40:00* Test Item Value Reference Range Interpretation Comments Transferrin (test code = 3034-6) 159 174-364 [facility] or plasma ferritin measurement (mass/volume)2019-10-18 12:40:00* Test Item Value Reference Range Interpretation Comments Ferritin (test code = 2276-4) > 2000.00 21.81-274.66 [facility]er[facility] or plasma indirect bilirubin measurement (mass/volume)2019-10-18 12:40:00* Test Item Value Reference Range Interpretation Comments Indirect Bilirubin (test code = 1971-1) 2.9 0.3-1.2 [facility]er[facility] or plasma creatine kinase measurement (enzymatic activity/volume)2019-10-18 12:40:00* Test Item Value Reference Range Interpretation Comments Creatine Kinase (test code = 2157-6) 38 30-200 [facility]er[facility] or plasma creatine kinase MB measurement (mass/volume)2019-10-18 12:40:00* Test Item Value Reference Range Interpretation Comments Creatine Kinase MB (test code = 87397-4) 1.20 0-5.0 [facility] I measurement by highly sensitive enzyme cfchbobqqgl5610-91-47 12:40:00* Test Item Value Reference Range Interpretation Comments Troponin I (test code = 96835-1) 0.059 0-0.300 [facility]Blood cobalamin (vitamin B12) measurement (mass/volume)2019-10-18 12:40:00* Test Item Value Reference Range Interpretation Comments Vitamin B12 Level (test code = 08416-0) 401 213-816 [facility] or plasma folate measurement (mass/volume)2019-10-18 12:40:00* Test Item Value Reference Range Interpretation Comments Folate (test code = 2284-8) 9.5 7.0-15.4 [facility] plasma iron measurement (mass/volume)2019-10-18 12:40:00* Test Item Value Reference Range Interpretation Comments Iron Level (test code = 2498-4) 47 65-175 [facility]er[facility] or plasma iron binding capacity measurement (mass/volume)2019-10-18 12:40:00* Test Item Value Reference Range Interpretation Comments Total Iron Binding Capacity (test code = 2500-7) 223 261-4 78 [facility] plasma iron saturation measurement (mass fraction)2019-10-18 12:40:00* Test Item Value Reference Range Interpretation Comments Percent Iron Saturation (test code = 2502-3) 21 15-50 [facility] or plasma transferrin measurement (mass/volume)2019-10-18 12:40:00* Test Item Value Reference Range Interpretation Comments Transferrin (test code = 3034-6) 159 174-364 [facility] or plasma indirect bilirubin measurement (mass/volume)2019-10-18 12:40:00* Test Item Value Reference Range Interpretation Comments Indirect Bilirubin (test code = 1971-1) 2.9 0.3-1.2 [facility] or plasma creatine kinase measurement (enzymatic activity/volume)2019-10-18 12:40:00* Test Item Value Reference Range Interpretation Comments Creatine Kinase (test code = 2157-6) 38 30-200 [facility] or plasma creatine kinase MB measurement (mass/volume)2019-10-18 12:40:00* Test Item Value Reference Range Interpretation Comments Creatine Kinase MB (test code = 50225-9) 1.20 0-5.0 [facility] measurement by highly sensitive enzyme szelzkogisx8106-39-57 12:40:00* Test Item Value Reference Range Interpretation Comments Troponin I (test code = 45134-9) 0.059 0-0.300 [facility] or plasma folate measurement (mass/volume)2019-10-18 12:40:00* Test Item Value Reference Range Interpretation Comments Folate (test code = 2284-8) 9.5 7.0-15.4 [facility]GL[facility]ED2020-[facility] 20:09:00* Test Item Value Reference Range Interpretation Comments GLUBED (test code = GLUBED) 118 mg/dL 74-106 H Performed by certified wet process operator at [facility] ANTINUCLEAR ANTIBODIES [id number] 18:07:00* Test Item Value Reference Range Interpretation Comments BRIDGETT SCREEN (test code = ANASCR) Negative Negative Performed At: [facility] [address] [id number] Kyle L MD Ph:[phone] REFAB [id number] 18:07:00* Test Item Value Reference Range Interpretation Comments AB MITOCHONDRIAL (test code = MITOCHAB) <20.0 Units 0.0-20.0 Negative 0.0 - 20.0 Equivocal 20.1 - 24.9 Positive >24.9Mitochondrial (M2) Antibodies are found in 90-96% ofpatients with primary biliary cirrhosis.Performed At: [facility] [id number] Sanjai MD Ph:[phone] [id number] 11:29:00* Test Item Value Reference Range Interpretation Comments GLUBED (test code = GLUBED) 133 mg/dL 74-106 H Performed by certified wet process operator at [facility] [id number] 11:02:00* Test Item Value Reference Range Interpretation Comments GLUBED (test code = GLUBED) 146 mg/dL 74-106 H Performed by certified wet process operator at [facility] AB HIV 1 09:51:00* Test Item Value Reference Range Interpretation Comments AB HIV 1 2 (test code = VGH33UM) Nonreactive NonReactive It is recognized that currently available assays for thedetection of antibodies to HIV-1 and/or HIV-2 may notdetect all infected individuals. A negative test result doesnot exclude the possibility of exposure to or infection withHIV. HIV antibodies may be undetectable in some stages ofthe infection and in some clinical conditions. AB HEPATITIS B [id number] 07:12:00* Test Item Value Reference Range Interpretation Comments AB HEPATITIS B SURFACE (test code = HBSAB) Reactive () Non Reactive: Inconsistent with immunity, less than 10 mIU/mL Reactive: Consistent with immunity, greater than 9.9 mIU/mLPerformed At: [facility] [address] [id number] Kyle L MD Ph:[phone] HEPATITIS B CORE ANTIBODY,[id number] 07:12:00* Test Item Value Reference Range Interpretation Comments HEPATITIS B CORE ANTIBODY,TOT (test code = HBCAB) Negative Nega tive Performed At: [facility] [id number] Palencia MD Ph:[phone] [id number] 05:31:00* Test Item Value Reference Range Interpretation Comments HEMOGLOBIN (test code = HGB) 8.0 gram/dL 13.0-17.5 L [id number] 20:08:00* Test Item Value Reference Range Interpretation Comments GLUBED (test code = GLUBED) 135 mg/dL 74-106 H Performed by certified wet process operator at [facility] [id number] 17:42:00* Test Item Value Reference Range Interpretation Comments GLUBED (test code = GLUBED) 237 mg/dL 74-106 H Performed by certified wet process operator at [facility] BASIC METABOLIC [id number] 13:54:00* Test Item Value Reference Range Interpretation [...] CA) 8.7 mg/dL 8.5-10.1 N BASIC METABOLIC [id number] 13:49:00* Test Item Value Reference Range Interpretation [...] code = CA) mg/dL 8.5-10.1 CBC W/AUTO [id number] 12:42:00* Test Item Value Reference Range Interpretation [...] = MDIFF) NO, ONLY SCAN NEEDED DIFFERENTIAL [id number] 12:42:00* Test Item Value Reference Range Interpretation Comments STAIN ACCEPTABILITY (test code = STN ACCEPTABLE) STAIN ACCEPTABLE POLYCHROMASIA (test code = POLC) 1+ ANISOCYTOSIS (test code = ANISO) 3+ MACROCYTOSIS (test code = MACR) 3+ PLATELET ESTIMATE (test code = PLTEST) SLIGHTLY DECREASED PLATELET MORPHOLOGY (test code = PLTMORPH) NORMAL [id number] 12:13:00* Test Item Value Reference Range Interpretation Comments GLUBED (test code = GLUBED) 142 mg/dL 74-106 H Performed by certified wet process operator at [facility] CBC W/AUTO [id number] 11:55:00* Test Item Value Reference Range Interpretation [...] = MDIFF) NO, ONLY SCAN NEEDED DIFFERENTIAL [id number] 11:55:00* Test Item Value Reference Range Interpretation Comments STAIN ACCEPTABILITY (test code = STN ACCEPTABLE) CABOT RINGS (test code = CAB) MORPHOLOGY COMMENT (test code = MOC) PLATELET ESTIMATE (test code = PLTEST) PLATELET MORPHOLOGY (test code = PLTMORPH) CBC W/AUTO [id number] 11:55:00* Test Item Value Reference Range Interpretation [...] = MDIFF) NO, ONLY SCAN NEEDED DIFFERENTIAL [id number] 11:55:00* Test Item Value Reference Range Interpretation Comments STAIN ACCEPTABILITY (test code = STN ACCEPTABLE) CABOT RINGS (test code = CAB) MORPHOLOGY COMMENT (test code = MOC) PLATELET ESTIMATE (test code = PLTEST) PLATELET MORPHOLOGY (test code = PLTMORPH) CBC W/AUTO [id number] 11:55:00* Test Item Value Reference Range Interpretation [...] = MDIFF) NO, ONLY SCAN NEEDED DIFFERENTIAL [id number] 11:55:00* Test Item Value Reference Range Interpretation Comments STAIN ACCEPTABILITY (test code = STN ACCEPTABLE) MORPHOLOGY COMMENT (test code = MOC) PLATELET ESTIMATE (test code = PLTEST) PLATELET MORPHOLOGY (test code = PLTMORPH) CBC W/AUTO [id number] 11:55:00* Test Item Value Reference Range Interpretation [...] = MDIFF) NO, ONLY SCAN NEEDED DIFFERENTIAL [id number] 11:55:00* Test Item Value Reference Range Interpretation Comments STAIN ACCEPTABILITY (test code = STN ACCEPTABLE) CABOT RINGS (test code = CAB) MORPHOLOGY COMMENT (test code = MOC) PLATELET ESTIMATE (test code = PLTEST) PLATELET MORPHOLOGY (test code = PLTMORPH) CBC W/AUTO [id number] 07:58:00* Test Item Value Reference Range Interpretation [...] = MDIFF) NO, ONLY SCAN NEEDED DIFFERENTIAL [id number] 07:58:00* Test Item Value Reference Range Interpretation Comments STAIN ACCEPTABILITY (test code = STN ACCEPTABLE) STAIN ACCEPTABLE POLYCHROMASIA (test code = POLC) 1+ ANISOCYTOSIS (test code = ANISO) 3+ MACROCYTOSIS (test code = MACR) 3+ PLATELET ESTIMATE (test code = PLTEST) SLIGHTLY DECREASED PLATELET MORPHOLOGY (test code = PLTMORPH) NORMAL CBC W/AUTO [id number] 07:44:00* Test Item Value Reference Range Interpretation [...] = MDIFF) NO, ONLY SCAN NEEDED DIFFERENTIAL [id number] 07:44:00* Test Item Value Reference Range Interpretation Comments STAIN ACCEPTABILITY (test code = STN ACCEPTABLE) CABOT RINGS (test code = CAB) MORPHOLOGY COMMENT (test code = MOC) PLATELET ESTIMATE (test code = PLTEST) PLATELET MORPHOLOGY (test code = PLTMORPH) CBC W/AUTO [id number] 07:44:00* Test Item Value Reference Range Interpretation [...] = MDIFF) NO, ONLY SCAN NEEDED DIFFERENTIAL [id number] 07:44:00* Test Item Value Reference Range Interpretation Comments STAIN ACCEPTABILITY (test code = STN ACCEPTABLE) CABOT RINGS (test code = CAB) MORPHOLOGY COMMENT (test code = MOC) PLATELET ESTIMATE (test code = PLTEST) PLATELET MORPHOLOGY (test code = PLTMORPH) CBC W/AUTO [id number] 07:44:00* Test Item Value Reference Range Interpretation [...] = MDIFF) NO, ONLY SCAN NEEDED DIFFERENTIAL [id number] 07:44:00* Test Item Value Reference Range Interpretation Comments STAIN ACCEPTABILITY (test code = STN ACCEPTABLE) MORPHOLOGY COMMENT (test code = MOC) PLATELET ESTIMATE (test code = PLTEST) PLATELET MORPHOLOGY (test code = PLTMORPH) CBC W/AUTO [id number] 07:44:00* Test Item Value Reference Range Interpretation [...] = MDIFF) NO, ONLY SCAN NEEDED DIFFERENTIAL [id number] 07:44:00* Test Item Value Reference Range Interpretation Comments STAIN ACCEPTABILITY (test code = STN ACCEPTABLE) CABOT RINGS (test code = CAB) MORPHOLOGY COMMENT (test code = MOC) PLATELET ESTIMATE (test code = PLTEST) PLATELET MORPHOLOGY (test code = PLTMORPH) [id number] 07:34:00* Test Item Value Reference Range Interpretation Comments GLUBED (test code = GLUBED) 204 mg/dL 74-106 H Performed by certified wet process operator at [facility] [id number] 20:20:00* Test Item Value Reference Range Interpretation Comments GLUBED (test code = GLUBED) 234 mg/dL 74-106 H Performed by certified wet process operator at [facility] PROTHROMBIN [id number] 17:59:00* Test Item Value Reference Range Interpretation [...] (2.5-3.5) IS PATIENT ON ANTICOAGULANTS? NCBC W/O [id number] 17:49:00* Test Item Value Reference Range Interpretation [...] code = MPV) 12.2 fL 6.7-11.0 H [id number] 17:21:00* Test Item Value Reference Range Interpretation Comments GLUBED (test code = GLUBED) 146 mg/dL 74-106 H Performed by certified wet process operator at [facility] [id number] 12:20:00* Test Item Value Reference Range Interpretation Comments GLUBED (test code = GLUBED) 194 mg/dL 74-106 H Performed by certified wet process operator at [facility] ANTINUCLEAR ANTIBODIES [id number] 11:09:00* Test Item Value Reference Range Interpretation Comments BRIDGETT SCREEN (test code = ANASCR) Negative Negative Performed At: [facility] [id number] Kyle L MD Ph:[phone] REFAB [id number] 11:09:00* Test Item Value Reference Range Interpretation Comments AB MITOCHONDRIAL (test code = MITOCHAB) EIA <1.0 [id number] 08:13:00* Test Item Value Reference Range Interpretation Comments GLUBED (test code = GLUBED) 188 mg/dL 74-106 H Performed by certified wet process operator at [facility] ALPHA FETOPROTEIN TUMOR [id number] 08:10:00* Test Item Value Reference Range Interpretation Comments ALPHA FETOPROTEIN TUMOR MARKER (test code = AFPTM) 3.9 ng/mL 0.0 -8.3 [facility] Electrochemiluminescence Immunoassay(ECLIA)Values obtained with different assay methods or kits cannotbe used interchangeably. Results cannot be interpreted asabsolute evidence of the presence or absence of malignantdisease.This test is not interpretable in females.Performed At: [facility] [address] [id number] Roe Palencia MD Ph:[phone] [id number] 08:07:00* Test Item Value Reference Range Interpretation Comments HEMOGLOBIN (test code = HGB) 8.3 gram/dL 13.0-17.5 L [id number] 20:38:00* Test Item Value Reference Range Interpretation Comments GLUBED (test code = GLUBED) 168 mg/dL 74-106 H Performed by certified wet process operator at [facility] [id number] 17:29:00* Test Item Value Reference Range Interpretation Comments GLUBED (test code = GLUBED) 192 mg/dL 74-106 H Performed by certified wet process operator at [facility] HGB [id number] 16:55:00* Test Item Value Reference Range Interpretation Comments HEMOGLOBIN (test code = HGB) 8.6 gram/dL 13.0-17.5 L RESULT VERIFIED BY REPEAT ANALYSIS HEMATOCRIT (test code = HCT) 25.4 % 42.0-52.0 L [id number] 13:43:00* Test Item Value Reference Range Interpretation Comments GLUBED (test code = GLUBED) 224 mg/dL 74-106 H Performed by certified wet process operator at [facility] ACUTE HEPATITIS [id number] 08:10:00* Test Item Value Reference Range Interpretation [...] with a HCV Nucleic Acid Amplification test (443674).Performed At: [facility] [id number] Roe Palencia MD Ph:[phone] [id number] 08:02:00* Test Item Value Reference Range Interpretation Comments GLUBED (test code = GLUBED) 197 mg/dL 74-106 H Performed by certified wet process operator at [facility] AG HEPAT B [id number] 07:41:00* Test Item Value Reference Range Interpretation Comments AG HEPAT B SURF (test code = HBSAG) Nonreactive Index Nonreactive BASIC METABOLIC [id number] 03:15:00* Test Item Value Reference Range Interpretation [...] CA) 8.8 mg/dL 8.5-10.1 N HEPATIC FUNCTION [id number] 03:15:00* Test Item Value Reference Range Interpretation [...] due to change in reagent. CBC W/AUTO [id number] 02:51:00* Test Item Value Reference Range Interpretation Comments WHITE BLOOD CELL (test code = WBC) 5.2 K/mm3 4.5-12.5 N RED BLOOD CELL (test code = RBC) 2.04 mill/mm3 4.0-5.8 L HEMOGLOBIN (test code = HGB) 6.6 gram/dL 13.0-17.5 L HEMATOCRIT (test code = HCT) 19.9 % 42.0-52.0 LL Results called to [id number] by LORENE.JP1 10/09/19 0220Critical results verified and [...] = MDIFF) NO, ONLY SCAN NEEDED DIFFERENTIAL [id number] 02:51:00* Test Item Value Reference Range Interpretation [...] (test code = PLTMORPH) NORMAL BASIC METABOLIC [id number] 02:50:00* Test Item Value Reference Range Interpretation [...] code = CA) mg/dL 8.5-10.1 HEPATIC FUNCTION [id number] 02:50:00* Test Item Value Reference Range Interpretation [...] code = ALKP) IUnit/L 45-117 CBC W/AUTO [id number] 02:20:00* Test Item Value Reference Range Interpretation Comments WHITE BLOOD CELL (test code = WBC) 5.2 K/mm3 4.5-12.5 N RED BLOOD CELL (test code = RBC) 2.04 mill/mm3 4.0-5.8 L HEMOGLOBIN (test code = HGB) 6.6 gram/dL 13.0-17.5 L HEMATOCRIT (test code = HCT) 19.9 % 42.0-52.0 Results called to [id number] by MORENO 10/09/19 0220Critical results verified and [...] = MDIFF) NO, ONLY SCAN NEEDED DIFFERENTIAL [id number] 02:20:00* Test Item Value Reference Range Interpretation Comments STAIN ACCEPTABILITY (test code = STN ACCEPTABLE) CABOT RINGS (test code = CAB) MORPHOLOGY COMMENT (test code = MOC) PLATELET ESTIMATE (test code = PLTEST) PLATELET MORPHOLOGY (test code = PLTMORPH) CBC W/AUTO [id number] 02:20:00* Test Item Value Reference Range Interpretation Comments WHITE BLOOD CELL (test code = WBC) 5.2 K/mm3 4.5-12.5 N RED BLOOD CELL (test code = RBC) 2.04 mill/mm3 4.0-5.8 L HEMOGLOBIN (test code = HGB) 6.6 gram/dL 13.0-17.5 L HEMATOCRIT (test code = HCT) 19.9 % 42.0-52.0 LL Results called to [id number] by MORENO 10/09/19 0220Critical results verified and [...] = MDIFF) NO, ONLY SCAN NEEDED DIFFERENTIAL [id number] 02:20:00* Test Item Value Reference Range Interpretation Comments STAIN ACCEPTABILITY (test code = STN ACCEPTABLE) CABOT RINGS (test code = CAB) MORPHOLOGY COMMENT (test code = MOC) PLATELET ESTIMATE (test code = PLTEST) PLATELET MORPHOLOGY (test code = PLTMORPH) CBC W/AUTO [id number] 02:20:00* Test Item Value Reference Range Interpretation Comments WHITE BLOOD CELL (test code = WBC) 5.2 K/mm3 4.5-12.5 N RED BLOOD CELL (test code = RBC) 2.04 mill/mm3 4.0-5.8 L HEMOGLOBIN (test code = HGB) 6.6 gram/dL 13.0-17.5 L HEMATOCRIT (test code = HCT) 19.9 % 42.0-52.0 Results called to [id number] by MORENO 10/09/19 0220Critical results verified and [...] = MDIFF) NO, ONLY SCAN NEEDED DIFFERENTIAL [id number] 02:20:00* Test Item Value Reference Range Interpretation Comments STAIN ACCEPTABILITY (test code = STN ACCEPTABLE) MORPHOLOGY COMMENT (test code = MOC) PLATELET ESTIMATE (test code = PLTEST) PLATELET MORPHOLOGY (test code = PLTMORPH) CBC W/AUTO [id number] 02:20:00* Test Item Value Reference Range Interpretation Comments WHITE BLOOD CELL (test code = WBC) 5.2 K/mm3 4.5-12.5 N RED BLOOD CELL (test code = RBC) 2.04 mill/mm3 4.0-5.8 L HEMOGLOBIN (test code = HGB) 6.6 gram/dL 13.0-17.5 L HEMATOCRIT (test code = HCT) 19.9 % 42.0-52.0 LL Results called to [id number] by MORENO 10/09/19 0220Critical results verified and [...] = MDIFF) NO, ONLY SCAN NEEDED DIFFERENTIAL [id number] 02:20:00* Test Item Value Reference Range Interpretation Comments STAIN ACCEPTABILITY (test code = STN ACCEPTABLE) CABOT RINGS (test code = CAB) MORPHOLOGY COMMENT (test code = MOC) PLATELET ESTIMATE (test code = PLTEST) PLATELET MORPHOLOGY (test code = PLTMORPH) [id number] 20:19:00* Test Item Value Reference Range Interpretation Comments GLUBED (test code = GLUBED) 252 mg/dL 74-106 H Performed by certified wet process operator at [facility] [id number] 16:04:00* Test Item Value Reference Range Interpretation Comments GLUBED (test code = GLUBED) 216 mg/dL 74-106 H Performed by certified wet process operator at [facility] HGB [id number] 14:10:00* Test Item Value Reference Range Interpretation Comments HEMOGLOBIN (test code = HGB) 6.8 gram/dL 13.0-17.5 L HEMATOCRIT (test code = HCT) 20.7 % 42.0-52.0 LL Results called to [place] [address] by V.LAB.TYSON 10/08/19 1410Critical results verified and read back by Nurse? Y [id number] 11:49:00* Test Item Value Reference Range Interpretation Comments GLUBED (test code = GLUBED) 197 mg/dL 74-106 H Performed by certified wet process operator at [facility] [id number] 08:14:00* Test Item Value Reference Range Interpretation Comments GLUBED (test code = GLUBED) 222 mg/dL 74-106 H Performed by certified wet process operator at [facility] CBC W/AUTO [id number] 08:14:00* Test Item Value Reference Range Interpretation Comments WHITE BLOOD CELL (test code = WBC) 5.4 K/mm3 4.5-12.5 N RED BLOOD CELL (test code = RBC) 2.02 mill/mm3 4.0-5.8 L HEMOGLOBIN (test code = HGB) 6.6 gram/dL 13.0-17.5 L HEMATOCRIT (test code = HCT) 19.4 % 42.0-52.0 LL Results called to [id number] by DENIJRebecca 10/08/19 0701Critical results verified and read back [...] = MDIFF) NO, ONLY SCAN NEEDED DIFFERENTIAL [id number] 08:14:00* Test Item Value Reference Range Interpretation [...] (test code = PLTMORPH) NORMAL BASIC METABOLIC [id number] 07:45:00* Test Item Value Reference Range Interpretation [...] CA) 8.4 mg/dL 8.5-10.1 L HEPATIC FUNCTION [id number] 07:45:00* Test Item Value Reference Range Interpretation [...] due to change in reagent. BASIC METABOLIC [id number] 07:37:00* Test Item Value Reference Range Interpretation [...] code = CA) mg/dL 8.5-10.1 HEPATIC FUNCTION [id number] 07:37:00* Test Item Value Reference Range Interpretation [...] code = ALKP) IUnit/L 45-117 CBC W/AUTO [id number] 07:01:00* Test Item Value Reference Range Interpretation Comments WHITE BLOOD CELL (test code = WBC) 5.4 K/mm3 4.5-12.5 N RED BLOOD CELL (test code = RBC) 2.02 mill/mm3 4.0-5.8 L HEMOGLOBIN (test code = HGB) 6.6 gram/dL 13.0-17.5 L HEMATOCRIT (test code = HCT) 19.4 % 42.0-52.0 LL Results called to [id number] by LESLIE 10/08/19 0701Critical results verified and [...] = MDIFF) NO, ONLY SCAN NEEDED DIFFERENTIAL [id number] 07:01:00* Test Item Value Reference Range Interpretation Comments STAIN ACCEPTABILITY (test code = STN ACCEPTABLE) CABOT RINGS (test code = CAB) MORPHOLOGY COMMENT (test code = MOC) PLATELET ESTIMATE (test code = PLTEST) PLATELET MORPHOLOGY (test code = PLTMORPH) CBC W/AUTO [id number] 07:01:00* Test Item Value Reference Range Interpretation Comments WHITE BLOOD CELL (test code = WBC) 5.4 K/mm3 4.5-12.5 N RED BLOOD CELL (test code = RBC) 2.02 mill/mm3 4.0-5.8 L HEMOGLOBIN (test code = HGB) 6.6 gram/dL 13.0-17.5 L HEMATOCRIT (test code = HCT) 19.4 % 42.0-52.0 LL Results called to [id number] by LESLIE 10/08/19 0701Critical results verified and [...] = MDIFF) NO, ONLY SCAN NEEDED DIFFERENTIAL [id number] 07:01:00* Test Item Value Reference Range Interpretation Comments STAIN ACCEPTABILITY (test code = STN ACCEPTABLE) CABOT RINGS (test code = CAB) MORPHOLOGY COMMENT (test code = MOC) PLATELET ESTIMATE (test code = PLTEST) PLATELET MORPHOLOGY (test code = PLTMORPH) CBC W/AUTO [id number] 07:01:00* Test Item Value Reference Range Interpretation Comments WHITE BLOOD CELL (test code = WBC) 5.4 K/mm3 4.5-12.5 N RED BLOOD CELL (test code = RBC) 2.02 mill/mm3 4.0-5.8 L HEMOGLOBIN (test code = HGB) 6.6 gram/dL 13.0-17.5 L HEMATOCRIT (test code = HCT) 19.4 % 42.0-52.0 LL Results called to [id number] by LESLIE 10/08/19 0701Critical results verified and [...] = MDIFF) NO, ONLY SCAN NEEDED DIFFERENTIAL [id number] 07:01:00* Test Item Value Reference Range Interpretation Comments STAIN ACCEPTABILITY (test code = STN ACCEPTABLE) MORPHOLOGY COMMENT (test code = MOC) PLATELET ESTIMATE (test code = PLTEST) PLATELET MORPHOLOGY (test code = PLTMORPH) CBC W/AUTO [id number] 07:01:00* Test Item Value Reference Range Interpretation Comments WHITE BLOOD CELL (test code = WBC) 5.4 K/mm3 4.5-12.5 N RED BLOOD CELL (test code = RBC) 2.02 mill/mm3 4.0-5.8 L HEMOGLOBIN (test code = HGB) 6.6 gram/dL 13.0-17.5 L HEMATOCRIT (test code = HCT) 19.4 % 42.0-52.0 LL Results called to [id number] by LESLIE 10/08/19 0701Critical results verified and [...] = MDIFF) NO, ONLY SCAN NEEDED DIFFERENTIAL [id number] 07:01:00* Test Item Value Reference Range Interpretation Comments STAIN ACCEPTABILITY (test code = STN ACCEPTABLE) CABOT RINGS (test code = CAB) MORPHOLOGY COMMENT (test code = MOC) PLATELET ESTIMATE (test code = PLTEST) PLATELET MORPHOLOGY (test code = PLTMORPH) [id number] 23:25:00* Test Item Value Reference Range Interpretation Comments GLUBED (test code = GLUBED) 187 mg/dL 74-106 H Performed by certified wet process operator at [facility] - US ABDOMEN [id number] 20:26:00 Name: VIOLETTE LAMB [facility] : 1965 Age/S: 54 / M [address] [facility] Unit #: [id number] Loc: [place] [address] Phys: Pawel Salvador MD Acct: [id number] Dis Date: Status: ADM IN PHONE #: [phone] Exam Date: 10/07/20192003 FAX #: [phone] Reason: jaundice EXAMS: CPT CODE: [id number] US ABDOMEN COMPLETE 68586 REASON FOR EXAM: jaundice EXAM ORDER DATE: 10/07/2019 7:23 PM Ordering: Pawel Salvador MD Attending:Pawel Salvador MD Location:[facility] PROCEDURE: - US ABDOMEN COMPLETE [...] Signed Re port - XR CHEST 1 [id number] 20:24:00 FAX: Pawel Beasley MD [place]: St: ADM FAX: Adin Kim MD [phone] Name: VIOLETTE LAMB [facility] : 1965 Age/S: 54/M [address] [facility] Unit #: [id number] Loc: [place] [address] Phys: Pawel Salvador MD Acct: [id number] Dis Date: Status: ADM IN PHONE #: [phone] Exam Date: 10/07/20192010 FAX #: [phone] Reason: h/o chf EXAMS: CPT CODE: [id number] XR CHEST 1 V 99833 REASON FOR EXAM: h/o chf EXAM ORDER [...] FESAT) 39.55 % 13-45 N HEPATIC FUNCTION [id number] 19:19:00* Test Item Value Reference Range Interpretation [...] reference range due to change in reagent. [id number] 19:19:00* Test Item Value Reference Range Interpretation Comments LIPASE (test code = LIP) 166 U/L 73.0-393.0 N [id number] 19:19:00* Test Item Value Reference Range Interpretation Comments TROPONIN-I (test code = TROPI) 0.030 ng/mL 0-0.045 N BASIC METABOLIC [id number] 18:22:00* Test Item Value Reference Range Interpretation [...] CA) 8.8 mg/dL 8.5-10.1 N BASIC METABOLIC [id number] 18:18:00* Test Item Value Reference Range Interpretation [...] (test code = CA) mg/dL 8.5-10.1 PROTHROMBIN [id number] 18:15:00* Test Item Value Reference Range Interpretation [...] (2.5-3.5) IS PATIENT ON ANTICOAGULANTS? NTHROMBOPLASTIN TIME [id number] 18:15:00* Test Item Value Reference Range Interpretation Comments THROMBOPLASTIN TIME PARTIAL (test code = PTT) 34.2 seconds 25.0-36. 5 N IS PATIENT ON ANTICOAGULANTS? NCBC W/O [id number] 18:07:00* Test Item Value Reference Range Interpretation Comments WHITE BLOOD CELL (test code = WBC) 4.6 K/mm3 4.5-12.5 N RED BLOOD CELL (test code = RBC) 2.22 mill/mm3 4.0-5.8 L HEMOGLOBIN (test code = HGB) 7.2 gram/dL 13.0-17.5 L HEMATOCRIT (test code = HCT) 20.8 % 42.0-52.0 LL Results called to [id number] by MICHELET 10/07/19 1804Critical results verified and [...] code = MPV) 12.1 fL 6.7-11.0 H [id number] 09:59:00* Test Item Value Reference Range Interpretation Comments GLUBED (test code = GLUBED) 100 mg/dL 74-106 N Performed by certified wet process operator at [facility] CBC W/AUTO [id number] 19:58:00* Test Item Value Reference Range Interpretation [...] = MDIFF) NO, ONLY SCAN NEEDED DIFFERENTIAL [id number] 19:58:00* Test Item Value Reference Range Interpretation Comments STAIN ACCEPTABILITY (test code = STN ACCEPTABLE) STAIN ACCEPTABLE ANISOCYTOSIS (test code = ANISO) 1+ PLATELET ESTIMATE (test code = PLTEST) DECREASED PLATELET MORPHOLOGY (test code = PLTMORPH) NORMAL COMPREHENSIVE METABOLIC [id number] 18:51:00* Test Item Value Reference Range Interpretation [...] LDL result is a direct measurement.========= PROTHROMBIN [id number] 18:47:00* Test Item Value Reference Range Interpretation [...] Mechanical prosthetic heart valves (2.5-3.5) THROMBOPLASTIN TIME [id number] 18:47:00* Test Item Value Reference Range Interpretation Comments THROMBOPLASTIN TIME PARTIAL (test code = PTT) 35.7 seconds 25.0-36. 5 N COMPREHENSIVE METABOLIC [id number] 18:43:00* Test Item Value Reference Range Interpretation [...] result is a direct measurement.========= CBC W/AUTO [id number] 18:39:00* Test Item Value Reference Range Interpretation [...] = MDIFF) NO, ONLY SCAN NEEDED DIFFERENTIAL [id number] 18:39:00* Test Item Value Reference Range Interpretation Comments STAIN ACCEPTABILITY (test code = STN ACCEPTABLE) CABOT RINGS (test code = CAB) MORPHOLOGY COMMENT (test code = MOC) PLATELET ESTIMATE (test code = PLTEST) PLATELET MORPHOLOGY (test code = PLTMORPH) CBC W/AUTO [id number] 18:39:00* Test Item Value Reference Range Interpretation [...] = MDIFF) NO, ONLY SCAN NEEDED DIFFERENTIAL [id number] 18:39:00* Test Item Value Reference Range Interpretation Comments STAIN ACCEPTABILITY (test code = STN ACCEPTABLE) MORPHOLOGY COMMENT (test code = MOC) PLATELET ESTIMATE (test code = PLTEST) PLATELET MORPHOLOGY (test code = PLTMORPH) CBC W/AUTO [id number] 18:39:00* Test Item Value Reference Range Interpretation [...] = MDIFF) NO, ONLY SCAN NEEDED DIFFERENTIAL [id number] 18:39:00* Test Item Value Reference Range Interpretation Comments STAIN ACCEPTABILITY (test code = STN ACCEPTABLE) MORPHOLOGY COMMENT (test code = MOC) PLATELET ESTIMATE (test code = PLTEST) PLATELET MORPHOLOGY (test code = PLTMORPH) CBC W/AUTO [id number] 18:39:00* Test Item Value Reference Range Interpretation [...] = MDIFF) NO, ONLY SCAN NEEDED DIFFERENTIAL [id number] 18:39:00* Test Item Value Reference Range Interpretation Comments STAIN ACCEPTABILITY (test code = STN ACCEPTABLE) CABOT RINGS (test code = CAB) MORPHOLOGY COMMENT (test code = MOC) PLATELET ESTIMATE (test code = PLTEST) PLATELET MORPHOLOGY (test code = PLTMORPH) COMPREHENSIVE METABOLIC [id number] 18:28:00* Test Item Value Reference Range Interpretation [...] (test code = LDL) mg/dL 100-129 Bedside [id number] 07:27:00* Test Item Value Reference Range Interpretation Comments Bedside Glucose (test code = 88601-2) 111 70-120 Meter ID: [id number] [facility] B Surface Antibody, [id number] 10:55:00* Test Item Value Reference Range Interpretation Comments Hepatitis B Surface Antibody, Quant (test code = 5194-6) <3.0 Reference Range: Immunity>9.9 mIU/mLStatus of Immunity Anti-HBs Level Inconsistent with Immunity 0.0 - 9.9Consistent with Immunity >9.9[facility] Be Fimjeuw5642-60-03 10:55:00* Test Item Value Reference Range Interpretation Comments Hepatitis Be Antigen (test code = 59417-7) Negative [facility] B Core Total Xiiceshy1898-28-80 10:55:00* Test Item Value Reference Range Interpretation Comments Hepatitis B Core Total Antibody (test code = 39903-8) Negative [facility] B Core IgM [id number] 10:55:00* Test Item Value Reference Range Interpretation Comments Hepatitis B Core IgM Antibody (test code = 79473-6) Negative [facility] B Surface Antibody, Quant 2019-07-16 10:55:00* Test Item Value Reference Range Interpretation Comments Hepatitis B Surface Antibody, Quant (test code = 5194-6) <3.0 Reference Range: Immunity>9.9 mIU/mLStatus of Immunity Anti-HBs Level Inconsistent with Immunity 0.0 - 9.9Consistent with Immunity >9.9[facility] Be Scuxarv4384-94-25 10:55:00* Test Item Value Reference Range Interpretation Comments Hepatitis Be Antigen (test code = 03952-1) Negative [facility] B Surface Iizvosu9021-31-91 08:44:00* Test Item Value Reference Range Interpretation Comments Hepatitis B Surface Antigen (test code = 5196-1) Negative Negat [facility] Be Bkaqmilp8265-69-48 22:26:00 * Test Item Value Reference Range Interpretation Comments Hepatitis Be Antibody (test code = 98864-9) Negative Negative Performed at: [facility] Lab[address] [id number] Senior Safety Support Manager: Dasha Lr MD, Phone: [phone] [facility] Brownsvilletool Occult [id number] 09:51:00* Test Item Value Reference Range Interpretation Comments Stool Occult Blood (test code = 2335-8) NEGATIVE NEGATIVE [facility] Occult Pggul2996-35-04 09:51:00* Test Item Value Reference Range Interpretation Comments Stool Occult Blood (test code = 2335-8) NEGATIVE NEGATIVE [facility]villeodium Mldgv8534-87-36 06:41:00* Test Item Value Reference Range Interpretation Comments Sodium Level (test code = 2951-2) 136 136-145 [facility]field[facility] Oddak8783-19-72 06:41:00* Test Item Value Reference Range Interpretation Comments Potassium Level (test code = 2823-3) 4.5 3.5-5.1 [facility]loride Wbsbx9789-71-72 06:41:00* Test Item Value Reference Range Interpretation Comments Chloride Level (test code = 2075-0) 102 98-107 [facility]field[facility] Dioxide Qvlbt7529-61-11 06:41:00* Test Item Value Reference Range Interpretation Comments Carbon Dioxide Level (test code = 2028-9) 23 22-29 [facility]fieldAnion Tbm4031-77-08 06:41:00* Test Item Value Reference Range Interpretation Comments Anion Gap (test code = 23623-7) 15.5 8-16 [facility]field[facility] Urea Kuvytpzw3089-54-96 06:41:00* Test Item Value Reference Range Interpretation Comments Blood Urea Nitrogen (test code = 3094-0) 53 7-26 H [facility]field[facility]inine2019-12-16 06:41:00* Test Item Value Reference Range Interpretation Comments Creatinine (test code = 2160-0) 4.01 0.72-1.25 H [facility]field[facility]UN/Creatinine Nwvvx8920-11-01 06:41:00* Test Item Value Reference Range Interpretation Comments BUN/Creatinine Ratio (test code = 3097-3) 13 6-25 [facility]fieldEstimat Glomerular Filtration Rate 2019-07-15 06:41:00* Test Item Value Reference Range Interpretation Comments Estimat Glomerular Filtration Rate (test code = 635247441) 16 >60 L Ranges were taken from the National Kidney Disease Education Program and the [employer] literature.Reference ranges:60 or greater: Sghmxv66-43 ( for 3 consecutive months): Chronic kidney disease 15 or less: Kidney failureTexas Health Hospital MansfieldGlucose Dpczg9616-31-63 06:41:00* Test Item Value Reference Range Interpretation Comments Glucose Level (test code = ZSQ7550) 184 74-118 H [facility]fieldCalcium Bytkv7622-62-97 06:41:00* Test Item Value Reference Range Interpretation Comments Calcium Level (test code = 47281-1) 8.4 8.4-10.2 [facility]villeto gastrointestinal hemoglobin rdqudauza4879-78-47 05:30:00* Test Item Value Reference Range Interpretation Comments Stool Occult Blood (test code = 2335-8) NEGATIVE NEGATIVE [facility] gastrointestinal hemoglobin extjamtsw9191-99-96 05:30:00* Test Item Value Reference Range Interpretation Comments Stool Occult Blood (test code = 2335-8) NEGATIVE NEGATIVE [facility] gastrointestinal hemoglobin gssblfgpj4635-79-51 05:30:00* Test Item Value Reference Range Interpretation Comments Stool Occult Blood (test code = 2335-8) NEGATIVE NEGATIVE [facility] gastrointestinal hemoglobin ntrxeidag8206-42-04 05:30:00* Test Item Value Reference Range Interpretation Comments Stool Occult Blood (test code = 2335-8) NEGATIVE NEGATIVE [facility] gastrointestinal hemoglobin pkkksmnhw2899-52-75 05:30:00* Test Item Value Reference Range Interpretation Comments Stool Occult Blood (test code = 2335-8) NEGATIVE NEGATIVE [facility]field[facility] Blood Cpwmr8445-95-11 08:59:00* Test Item Value Reference Range Interpretation Comments White Blood Count (test code = 6690-2) 4.18 4.8-10.8 L [facility]fieldRed Blood Szbex2400-92-45 08:59:00* Test Item Value Reference Range Interpretation Comments Red Blood Count (test code = 789-8) 2.65 4.3-5.7 L [facility]fieldHemoglobin2019-12-15 08:59:00* Test Item Value Reference Range Interpretation Comments Hemoglobin (test code = 65427-2) 8.2 14.0-18.0 L [facility]fieldHematocrit2019-12-15 08:59:00* Test Item Value Reference Range Interpretation Comments Hematocrit (test code = 4544-3) 26.0 38.2-49.6 L [facility]fieldMean Corpuscular Duowad1862-04-94 08:59:00* Test Item Value Reference Range Interpretation Comments Mean Corpuscular Volume (test code = 787-2) 98.1 81-99 [facility]fieldMean Corpuscular Xcxctvpruo7342-95-78 08:59:00* Test Item Value Reference Range Interpretation Comments Mean Corpuscular Hemoglobin (test code = 785-6) 30.9 28-32 [facility]fieldMean Corpuscular Hemoglobin Concent 2019-07-14 08:59:00* Test Item Value Reference Range Interpretation Comments Mean Corpuscular Hemoglobin Concent (test code = 786-4) 31.5 31-35 [facility]fieldRed Cell Distribution Ghjfl1852-32-95 08:59:00* Test Item Value Reference Range Interpretation Comments Red Cell Distribution Width (test code = 43902-7) 18.4 11.7 -14.4 H [facility]fieldPlatelet Gxiin0824-82-85 08:59:00* Test Item Value Reference Range Interpretation Comments Platelet Count (test code = 777-3) 90 140-360 L [facility]fieldNeutrophils (%) (Auto)2019-07-14 08:59:00 * Test Item Value Reference Range Interpretation Comments Neutrophils (%) (Auto) (test code = 66567-9) 72.3 38.7-80.0 [facility]fieldLymphocytes (%) (Auto)2019-07-14 08:59:00 * Test Item Value Reference Range Interpretation Comments Lymphocytes (%) (Auto) (test code = 736-9) 12.2 18.0-39.1 L [facility]fieldMonocytes (%) (Auto)2019-07-14 08:59:00* Test Item Value Reference Range Interpretation Comments Monocytes (%) (Auto) (test code = 5905-5) 10.3 4.4-11.3 [facility]fieldEosinophils (%) (Auto)2019-07-14 08:59:00 * Test Item Value Reference Range Interpretation Comments Eosinophils (%) (Auto) (test code = 713-8) 4.5 0.0-6.0 [facility]field[facility]ophils (%) (Auto)2019-07-14 08:59:00* Test Item Value Reference Range Interpretation Comments Basophils (%) (Auto) (test code = 706-2) 0.5 0.0-1.0 [facility]fieldIM GRANULOCYTES %2019-07-14 08:59:00* Test Item Value Reference Range Interpretation Comments IM GRANULOCYTES % (test code = IM GRANULOCYTES %) 0.2 0.0- 1.0 [facility] [place]fieldNeutrophils # (Auto)2019-07-14 08:59:00* Test Item Value Reference Range Interpretation Comments Neutrophils # (Auto) (test code = 751-8) 3.0 2.1-6.9 [facility]fieldLymphocytes # (Auto)2019-07-14 08:59:00* Test Item Value Reference Range Interpretation Comments Lymphocytes # (Auto) (test code = 04128-0) 0.5 1.0-3.2 L [facility]fieldMonocytes # (Auto)2019-07-14 08:59:00* Test Item Value Reference Range Interpretation Comments Monocytes # (Auto) (test code = 742-7) 0.4 0.2-0.8 [facility] [place]fieldEosinophils # (Auto)2019-07-14 08:59:00* Test Item Value Reference Range Interpretation Comments Eosinophils # (Auto) (test code = 711-2) 0.2 0.0-0.4 [facility] [place]fieldBasophils # (Auto)2019-07-14 08:59:00* Test Item Value Reference Range Interpretation Comments Basophils # (Auto) (test code = 704-7) 0.0 0.0-0.1 [facility] [place]fieldAbsolute Immature Granulocyte (auto 2019-07-14 08:59:00* Test Item Value Reference Range Interpretation Comments Absolute Immature Granulocyte (auto (rupinder t code = Absolute Immature Granulocyte (auto) 0.01 0-0.1 [facility] [place]fieldFerritin2019-12-14 09:20:00* Test Item Value Reference Range Interpretation Comments Ferritin (test code = 2276-4) 225.81 21.81-274.66 [facility] [place]fieldDifferential Total Cells Counted 2019-07-13 08:32:00* Test Item Value Reference Range Interpretation Comments Differential Total Cells Counted (test code = Differen tial Total Cells Counted) 100 [facility]fieldNeutrophils % (Manual)2019-07-13 08:32:00 * Test Item Value Reference Range Interpretation Comments Neutrophils % (Manual) (test code = 17592-6) 80 40-74 H [facility] [place]fieldBand Neutrophils %2019-07-13 08:32:00* Test Item Value Reference Range Interpretation Comments Band Neutrophils % (test code = 764-1) 1 [facility]fieldLymphocytes % (Manual)2019-07-13 08:32:00 * Test Item Value Reference Range Interpretation Comments Lymphocytes % (Manual) (test code = 737-7) 12 19-48 L [facility] [place]fieldMonocytes % (Manual)2019-07-13 08:32:00* Test Item Value Reference Range Interpretation Comments Monocytes % (Manual) (test code = 744-3) 5 3.4-9.0 [facility] [place]fieldEosinophils % (Manual)2019-07-13 08:32:00 * Test Item Value Reference Range Interpretation Comments Eosinophils % (Manual) (test code = 714-6) 2 0-7 [facility] MansfieldPlatelet Clhrwrjr9320-80-78 08:32:00* Test Item Value Reference Range Interpretation Comments Platelet Estimate (test code = 02514-1) MODERATELY DECREASED [facility] MansfieldPlatelet Morphology Gqdkezo8045-00-85 08:32:00* Test Item Value Reference Range Interpretation Comments Platelet Morphology Comment (test code = 08084-1) NORMAL [facility] MansfieldRed Cell Morphology Ssidbfm7685-96-67 08:32:00* Test Item Value Reference Range Interpretation Comments Red Cell Morphology Comment (test code = 6742-1) NORMAL [facility]fieldBand Neutrophils %2019-07-13 08:32:00* Test Item Value Reference Range Interpretation Comments Band Neutrophils % (test code = 764-1) 1 [facility] [place]fieldIron Kkfgw2953-21-58 06:35:00* Test Item Value Reference Range Interpretation Comments Iron Level (test code = 2498-4) 37 65-175 L [facility] [place]fieldTotal Iron Binding Jlffcnyk0460-64-35 06:35:00* Test Item Value Reference Range Interpretation Comments Total Iron Binding Capacity (test code = 2500-7) 246 261-4 78 L [facility] MansfieldPercent Iron Uzkzjhfqyo1055-84-08 06:35:00* Test Item Value Reference Range Interpretation Comments Percent Iron Saturation (test code = 2502-3) 15 15-50 [facility] MansfieldTransferrin2019-12-14 06:35:00* Test Item Value Reference Range Interpretation Comments Transferrin (test code = 3034-6) 176 174-364 [facility]fieldHemoglobin A1c Qubpyyu8415-29-81 06:33:00 * Test Item Value Reference Range Interpretation Comments Hemoglobin A1c Percent (test code = Hemoglobin A1c Percent) 6.7 4.0-7.0 [facility] MansfieldHemoglobin A1c Ovfiirh8399-11-08 06:33:00 * Test Item Value Reference Range Interpretation Comments Hemoglobin A1c Percent (test code = Hemoglobin A1c Percent) 6.7 4.0-7.0 [facility] MansfieldManual blood band neutrophils form/100 rbleezzoxj2566-30-06 04:15:00* Test Item Value Reference Range Interpretation Comments Band Neutrophils % (test code = 764-1) 1 [facility] MansfieldFluoroscopic procedure less than one hour qgmtxbvi6311-83-06 04:15:00* Test Item Value Reference Range Interpretation Comments Hemoglobin A1c Percent (test code = Hemoglobin A1c Percent) 6.7 4.0-7.0 [facility] MansfieldManual blood band neutrophils form/100 ajyjsxyudk1031-47-93 04:15:00* Test Item Value Reference Range Interpretation Comments Band Neutrophils % (test code = 764-1) 1 [facility] MansfieldFluoroscopic procedure less than one hour qxovtjzf9445-38-11 04:15:00* Test Item Value Reference Range Interpretation Comments Hemoglobin A1c Percent (test code = Hemoglobin A1c Percent) 6.7 4.0-7.0 [facility] MansfieldManual blood band neutrophils form/100 dmnxsmndqs7443-40-36 04:15:00* Test Item Value Reference Range Interpretation Comments Band Neutrophils % (test code = 764-1) 1 [facility] MansfieldFluoroscopic procedure less than one hour ttyaqgku7489-58-52 04:15:00* Test Item Value Reference Range Interpretation Comments Hemoglobin A1c Percent (test code = Hemoglobin A1c Percent) 6.7 4.0-7.0 [facility] [place]fieldManual blood band neutrophils form/100 jcbdobgrtc4067-72-84 04:15:00* Test Item Value Reference Range Interpretation Comments Band Neutrophils % (test code = 764-1) 1 [facility] MansfieldFluoroscopic procedure less than one hour fhzziuud3038-58-18 04:15:00* Test Item Value Reference Range Interpretation Comments Hemoglobin A1c Percent (test code = Hemoglobin A1c Percent) 6.7 4.0-7.0 [facility] [place]fieldManual blood band neutrophils form/100 ppeoetowvh9559-49-85 04:15:00* Test Item Value Reference Range Interpretation Comments Band Neutrophils % (test code = 764-1) 1 [facility] MansfieldFluoroscopic procedure less than one hour dehexjoi6024-35-22 04:15:00* Test Item Value Reference Range Interpretation Comments Hemoglobin A1c Percent (test code = Hemoglobin A1c Percent) 6.7 4.0-7.0 [facility] [place]fieldCT ABDOMEN/PELVIS YN9023-21-58 15:37:00 [facility] [address] [place] [address] Patient Name: DIGNA LAMB MR #: [id number] : 1965 Age/Sex: 54/M Req #: [id number] Adm Physician: CINDY ALVAREZ MD Ordered by: CINDY ALVAREZ MD Report #: [id number] Location: [facility]/SURG3 Room/Bed: [facility] Procedure: 1213-[address]/CT ABDOMEN/PELVIS WO Exam [...] PM D ictated By: CORY CAPUTO MD 4232 COPY TO: CINDY ALVAREZ MD CT CHEST OU3688-88-12 15:37:00 [facility] [place] [address] Patient Name: VIOLETTE LAMB MR #: [id number] : 1965 Age/Sex: 54/M Req #: [id number] Adm Physician: CINDY ALVAREZ MD Ordered by: CINDY ALVAREZ MD Report #: [id number] Location: MED/SURG3 Room/Bed: [facility] Procedure: 1213-[address]/CT CHEST WO Exam [...] COPY TO: CINDY ALVAREZ MD Vitamin B12 Fhvcw4213-82-39 10:47:00* Test Item Value Reference Range Interpretation Comments Vitamin B12 Level (test code = 82309-8) 710 213-816 [facility] MansfieldThyroid Stimulating Hormone (TSH) 2019-07-12 10:29:00* Test Item Value Reference Range Interpretation Comments Thyroid Stimulating Hormone (TSH) (test code = 64980-8) 1.875 0.350-4.940 [facility] MansfieldThyroid Stimulating Hormone (TSH) 2019-07-12 10:29:00* Test Item Value Reference Range Interpretation Comments Thyroid Stimulating Hormone (TSH) (test code = 89083-4) 1.875 0.350-4.940 [facility]villeerum or plasma thyrotropin measurement by detection limit <= 0.005 miu/l (units/volume)2019-07-12 04:15:00* Test Item Value Reference Range Interpretation Comments Thyroid Stimulating Hormone (TSH) (test code = 66437-6) 1.875 0.350-4.940 [facility]villeerum or plasma thyrotropin measurement by detection limit <= 0.005 miu/l (units/volume)2019-07-12 04:15:00* Test Item Value Reference Range Interpretation Comments Thyroid Stimulating Hormone (TSH) (test code = 63909-1) 1.875 0.350-4.940 [facility]villeerum or plasma thyrotropin measurement by detection limit <= 0.005 miu/l (units/volume)2019-07-12 04:15:00* Test Item Value Reference Range Interpretation Comments Thyroid Stimulating Hormone (TSH) (test code = 51278-1) 1.875 0.350-4.940 [facility]villeerum or plasma thyrotropin measurement by detection limit <= 0.005 miu/l (units/volume)2019-07-12 04:15:00* Test Item Value Reference Range Interpretation Comments Thyroid Stimulating Hormone (TSH) (test code = 14694-9) 1.875 0.350-4.940 [facility]villeerum or plasma thyrotropin measurement by detection limit <= 0.005 miu/l (units/volume)2019-07-12 04:15:00* Test Item Value Reference Range Interpretation Comments Thyroid Stimulating Hormone (TSH) (test code = 51187-0) 1.875 0.350-4.940 [facility]fieldTotal Gjpojjkfb3644-56-59 21:11:00* Test Item Value Reference Range Interpretation Comments Total Bilirubin (test code = 1975-2) 1.7 0.2-1.2 H [facility] [place]fieldDirect Xkdnyfhfv6101-27-62 21:11:00* Test Item Value Reference Range Interpretation Comments Direct Bilirubin (test code = 15554-9) 1.4 0.0-0.5 H [facility] MansfieldAspartate Amino Transf (AST/SGOT) 2019-07-11 21:11:00* Test Item Value Reference Range Interpretation Comments Aspartate Amino Transf (AST/SGOT) (test code = Aspartate Amino Transf (AST/SGOT)) 28 5-34 [facility] MansfieldAlanine Aminotransferase (ALT/SGPT) 2019-07-11 21:11:00* Test Item Value Reference Range Interpretation Comments Alanine Aminotransferase (ALT/SGPT) (test code = 1742-6) 50 0-55 [facility]fieldTotal Iuyodfm2651-80-81 21:11:00* Test Item Value Reference Range Interpretation Comments Total Protein (test code = 2885-2) 6.5 6.5-8.1 [facility] MansfieldAlbumin2019-12-12 21:11:00* Test Item Value Reference Range Interpretation Comments Albumin (test code = 1751-7) 2.7 3.5-5.0 L [facility] MansfieldAlkaline Bwzyozceqbw8519-34-41 21:11:00* Test Item Value Reference Range Interpretation Comments Alkaline Phosphatase (test code = 6768-6) 714 40-150 H [facility] hepatitis B virus surface antibody assay by radioimmunoassay (units/volume)2019-07-11 19:36:00* Test Item Value Reference Range Interpretation Comments Hepatitis B Surface Antibody, Quant (test code = 5194-6) <3.0 Reference Range: Immunity>9.9 mIU/mLStatus of Immunity Anti-HBs Level Inconsistent with Immunity 0.0 - 9.9Consistent with Immunity >9.9[facility] hepatitis B virus e antigen detection by enzyme immunoassay 2019-07-11 19:36:00* Test Item Value Reference Range Interpretation Comments Hepatitis Be Antigen (test code = 62253-1) Negative [facility] hepatitis B virus surface antibody assay by radioimmunoassay (units/volume)2019-07-11 19:36:00* Test Item Value Reference Range Interpretation Comments Hepatitis B Surface Antibody, Quant (test code = 5194-6) <3.0 Reference Range: Immunity>9.9 mIU/mLStatus of Immunity Anti-HBs Level Inconsistent with Immunity 0.0 - 9.9Consistent with Immunity >9.9[facility] hepatitis B virus e antigen detection by enzyme immunoassay 2019-07-11 19:36:00* Test Item Value Reference Range Interpretation Comments Hepatitis Be Antigen (test code = 00289-5) Negative [facility] hepatitis B virus surface antibody assay by radioimmunoassay (units/volume)2019-07-11 19:36:00* Test Item Value Reference Range Interpretation Comments Hepatitis B Surface Antibody, Quant (test code = 5194-6) <3.0 Reference Range: Immunity>9.9 mIU/mLStatus of Immunity Anti-HBs Level Inconsistent with Immunity 0.0 - 9.9Consistent with Immunity >9.9[facility] hepatitis B virus e antigen detection by enzyme immunoassay 2019-07-11 19:36:00* Test Item Value Reference Range Interpretation Comments Hepatitis Be Antigen (test code = 58518-1) Negative [facility] hepatitis B virus surface antibody assay by radioimmunoassay (units/volume)2019-07-11 19:36:00* Test Item Value Reference Range Interpretation Comments Hepatitis B Surface Antibody, Quant (test code = 5194-6) <3.0 Reference Range: Immunity>9.9 mIU/mLStatus of Immunity Anti-HBs Level Inconsistent with Immunity 0.0 - 9.9Consistent with Immunity >9.9[facility] hepatitis B virus e antigen detection by enzyme immunoassay 2019-07-11 19:36:00* Test Item Value Reference Range Interpretation Comments Hepatitis Be Antigen (test code = 74225-1) Negative [facility] hepatitis B virus surface antibody assay by radioimmunoassay (units/volume)2019-07-11 19:36:00* Test Item Value Reference Range Interpretation Comments Hepatitis B Surface Antibody, Quant (test code = 5194-6) <3.0 Reference Range: Immunity>9.9 mIU/mLStatus of Immunity Anti-HBs Level Inconsistent with Immunity 0.0 - 9.9Consistent with Immunity >9.9[facility] e antigen detection by enzyme immunoassay 2019-07-11 19:36:00* Test Item Value Reference Range Interpretation Comments Hepatitis Be Antigen (test code = 11271-0) Negative [facility]fieldCreatine Kinase DM6927-82-26 12:55:00* Test Item Value Reference Range Interpretation Comments Creatine Kinase MB (test code = 79758-1) 4.00 0-5.0 [facility]fieldTroponin Z2303-57-64 12:55:00* Test Item Value Reference Range Interpretation Comments Troponin I (test code = QOR6051) 0.032 0-0.300 [facility]fieldB-Type Natriuretic Vngggep8697-51-16 12:48:00* Test Item Value Reference Range Interpretation Comments B-Type Natriuretic Peptide (test code = 92967-3) 3663.2 0-100 H [facility]fieldB-Type Natriuretic Ulsntlj1785-00-54 12:48:00* Test Item Value Reference Range Interpretation Comments B-Type Natriuretic Peptide (test code = 00337-6) 3663.2 0-100 H [facility]fieldUrine JXY6399-77-19 12:46:00* Test Item Value Reference Range Interpretation Comments Urine WBC (test code = 5821-4) 6-10 0-5 H [facility]fieldUrine TLG1216-56-40 12:46:00* Test Item Value Reference Range Interpretation Comments Urine RBC (test code = 04911-7) 0-5 0-5 [facility]fieldUrine Jdalehhv4708-43-54 12:46:00* Test Item Value Reference Range Interpretation Comments Urine Bacteria (test code = 00405-9) FEW NONE [facility]fieldUrine Epithelial Cfmti4485-17-05 12:46:00 * Test Item Value Reference Range Interpretation Comments Urine Epithelial Cells (test code = 91688-5) FEW NONE [facility] MansfieldUrine MRW1699-32-29 12:46:00* Test Item Value Reference Range Interpretation Comments Urine WBC (test code = 5821-4) 6-10 0-5 H [facility]fieldUrine QQE4497-99-35 12:46:00* Test Item Value Reference Range Interpretation Comments Urine RBC (test code = 77099-5) 0-5 0-5 [facility]fieldUrine Roirsrtb7353-22-15 12:46:00* Test Item Value Reference Range Interpretation Comments Urine Bacteria (test code = 96914-4) FEW NONE [facility]fieldUrine Epithelial Lgwls1692-90-45 12:46:00 * Test Item Value Reference Range Interpretation Comments Urine Epithelial Cells (test code = 87652-6) FEW NONE [facility]fieldUrine Bywio4363-93-36 12:43:00* Test Item Value Reference Range Interpretation Comments Urine Color (test code = 5778-6) YELLOW YELLOW [facility]fieldUrine Wzleqkj6263-71-25 12:43:00* Test Item Value Reference Range Interpretation Comments Urine Clarity (test code = 65713-8) SL CLOUDY CLEAR H [facility] MansfieldUrine Specific Abuitsh9447-60-42 12:43:00 * Test Item Value Reference Range Interpretation Comments Urine Specific [place] (test code = 5811-5) 1.025 1.010-1.02 5 [facility]fieldUrine yZ6152-33-66 12:43:00* Test Item Value Reference Range Interpretation Comments Urine pH (test code = 82106-8) 6 5-7 [facility]fieldUrine Leukocyte Erghcaoa7270-23-04 12:43:00* Test Item Value Reference Range Interpretation Comments Urine Leukocyte Esterase (test code = 5799-2) MODERATE NEGATIVE [facility]fieldUrine Yfmafnl2504-59-43 12:43:00* Test Item Value Reference Range Interpretation Comments Urine Nitrite (test code = 91336-0) NEGATIVE NEGATIVE [facility] Gsroohi2831-77-11 12:43:00* Test Item Value Reference Range Interpretation Comments Urine Protein (test code = 5804-0) 2+ NEGATIVE H [facility] Glucose (UA)2019-07-11 12:43:00* Test Item Value Reference Range Interpretation Comments Urine Glucose (UA) (test code = 2349-9) 1+ NEGATIVE H [facility] Kmvvlew5610-69-42 12:43:00* Test Item Value Reference Range Interpretation Comments Urine Ketones (test code = 58977-7) NEGATIVE NEGATIVE [facility] Futudukphrsi2695-47-57 12:43:00* Test Item Value Reference Range Interpretation Comments Urine Urobilinogen (test code = 85679-8) 0.2 0.2-1 [facility] Ryfwujulm7779-00-91 12:43:00* Test Item Value Reference Range Interpretation Comments Urine Bilirubin (test code = 1978-6) SMALL NEGATIVE [facility] Kvuat1042-26-85 12:43:00* Test Item Value Reference Range Interpretation Comments Urine Blood (test code = 15554-7) MODERATE NEGATIVE [facility] Airrd4134-92-88 12:43:00* Test Item Value Reference Range Interpretation Comments Urine Color (test code = 5778-6) YELLOW YELLOW [facility] Npcdfya6522-25-19 12:43:00* Test Item Value Reference Range Interpretation Comments Urine Clarity (test code = 13765-7) SL CLOUDY CLEAR H [facility]fieldUrine Specific Ednnhro7709-20-91 12:43:00 * Test Item Value Reference Range Interpretation Comments Urine Specific [place] (test code = 5811-5) 1.025 1.010-1.02 5 [facility]fieldUrine jZ0124-90-20 12:43:00* Test Item Value Reference Range Interpretation Comments Urine pH (test code = 63205-3) 6 5-7 [facility] Leukocyte Srmaunhz2427-98-49 12:43:00* Test Item Value Reference Range Interpretation Comments Urine Leukocyte Esterase (test code = 5799-2) MODERATE NEGATIVE [facility]fieldUrine Rqgpbwh6336-82-42 12:43:00* Test Item Value Reference Range Interpretation Comments Urine Nitrite (test code = 31513-5) NEGATIVE NEGATIVE [facility] MansfieldUrine Fwcwwkn0519-70-53 12:43:00* Test Item Value Reference Range Interpretation Comments Urine Protein (test code = 5804-0) 2+ NEGATIVE H [facility]fieldUrine Glucose (UA)2019-07-11 12:43:00* Test Item Value Reference Range Interpretation Comments Urine Glucose (UA) (test code = 2349-9) 1+ NEGATIVE H [facility] Ezwzqgi7003-33-47 12:43:00* Test Item Value Reference Range Interpretation Comments Urine Ketones (test code = 17068-3) NEGATIVE NEGATIVE [facility] Qtlvrvuswxgo9976-36-32 12:43:00* Test Item Value Reference Range Interpretation Comments Urine Urobilinogen (test code = 97854-6) 0.2 0.2-1 [facility]fieldUrine Umittbswy5600-07-46 12:43:00* Test Item Value Reference Range Interpretation Comments Urine Bilirubin (test code = 1978-6) SMALL NEGATIVE [facility]fieldUrine Wprii5203-90-03 12:43:00* Test Item Value Reference Range Interpretation Comments Urine Blood (test code = 26737-7) MODERATE NEGATIVE [facility] MansfieldInfluenza Virus Types A,B Antigen 2019-07-11 12:41:00* Test Item Value Reference Range Interpretation Comments Influenza Virus Types A,B Antigen (test code = 49935-7) NEGATIVE NEGATIVE [facility] MansfieldMagnesium Rpvhh1206-25-94 12:41:00* Test Item Value Reference Range Interpretation Comments Magnesium Level (test code = 28597-1) 2.0 1.3-2.1 [facility]fieldGlobulin2019-12-12 12:41:00* Test Item Value Reference Range Interpretation Comments Globulin (test code = 95105-4) 3.9 2.3-3.5 H [facility]fieldAlbumin/Globulin Ggdhe0649-42-26 12:41:00 * Test Item Value Reference Range Interpretation Comments Albumin/Globulin Ratio (test code = 1759-0) 0.7 0.8-2.0 L [facility] MansfieldCreatine Cqatwv5612-14-82 12:41:00* Test Item Value Reference Range Interpretation Comments Creatine Kinase (test code = 2157-6) 97 30-200 [facility] MansfieldGroup A Streptococcus Ldlrmd0663-94-69 12:41:00* Test Item Value Reference Range Interpretation Comments Group A Streptococcus Screen (test code = 69574-0) NEGATIVE NEG ATIVE [facility] MansfieldMagnesium Pwgqt6523-06-46 12:41:00* Test Item Value Reference Range Interpretation Comments Magnesium Level (test code = 41265-6) 2.0 1.3-2.1 [facility] MansfieldGroup A Streptococcus Phlvnf4775-99-10 12:41:00* Test Item Value Reference Range Interpretation Comments Group A Streptococcus Screen (test code = 08179-0) NEGATIVE NEG ATIVE [facility] MansfieldProthrombin Oiin1392-26-40 12:22:00* Test Item Value Reference Range Interpretation Comments Prothrombin Time (test code = 5902-2) 14.6 11.9-14.5 H [facility] MansfieldProthromb Time International Ratio 2019-07-11 12:22:00* Test Item Value Reference Range Interpretation Comments Prothromb Time International Ratio (test code = 6301-6) 1.09 Oral Anticoagulant Therapy INR Values:1. Low Intensity Therapy 1.5 - 2.02 . Moderate Intensity Therapy 2.0 - 3.03. High Intensity Therapy(1) 2.5 - 3. 54. High Intensity Therapy(2) 3.0 - 4.05. Panic Value INR > 5.0 [facility] MansfieldActivated Partial Thromboplast Time 2019-07-11 12:22:00* Test Item Value Reference Range Interpretation Comments Activated Partial Thromboplast Time (test code = 50111-0) 28.9 23.8-35.5 [facility] MansfieldCHEST SINGLE (PORTABLE)2019-07-11 11:31:00 [facility] [address] [place] [address] Patient Name: VIOLETTE LAMB MR #: [id number] : 1965 Age/Sex: 54/M Req #: [id number] Adm Physician: Ordered by: GERALDINE GIRON NP Report #: [id number] Location: ER Room/Bed: Procedure: DX/CHEST SINGLE (PORTABLE) [...] Interpretation Comments Magnesium Level (test code = 51517-2) 2.0 1.3-2.1 [facility] Bgg-vWax6020-23-12 11:00:00* Test Item Value Reference Range Interpretation Comments B-Type Natriuretic Peptide (test code = 12518-5) 3663.2 0-100 [facility] Brownsvilletreptococcus pyogenes antigen detection in rcmeiu9511-37-41 11:00:00* Test Item Value Reference Range Interpretation Comments Group A Streptococcus Screen (test code = 48954-6) NEGATIVE NEG ATIVE [facility] Brownsvilleerum or plasma magnesium measurement (mass/volume)2019-07-11 11:00:00* Test Item Value Reference Range Interpretation Comments Magnesium Level (test code = 80125-6) 2.0 1.3-2.1 [facility]2019-12-12 11:00:00* Test Item Value Reference Range Interpretation Comments B-Type Natriuretic Peptide (test code = 40409-0) 3663.2 0-100 [facility] Brownsvilletreptococcus pyogenes antigen detection in lqwgpp5021-15-14 11:00:00* Test Item Value Reference Range Interpretation Comments Group A Streptococcus Screen (test code = 92309-7) NEGATIVE NEG ATIVE [facility] Brownsvilleerum or plasma magnesium measurement (mass/volume)2019-07-11 11:00:00* Test Item Value Reference Range Interpretation Comments Magnesium Level (test code = 63738-4) 2.0 1.3-2.1 [facility]2019-12-12 11:00:00* Test Item Value Reference Range Interpretation Comments B-Type Natriuretic Peptide (test code = 61012-1) 3663.2 0-100 [facility] pyogenes antigen detection in bgyhsw3754-60-65 11:00:00* Test Item Value Reference Range Interpretation Comments Group A Streptococcus Screen (test code = 59262-0) NEGATIVE NEG ATIVE [facility] [place] or plasma magnesium measurement (mass/volume)2019-07-11 11:00:00* Test Item Value Reference Range Interpretation Comments Magnesium Level (test code = 83923-5) 2.0 1.3-2.1 [facility]2019-12-12 11:00:00* Test Item Value Reference Range Interpretation Comments B-Type Natriuretic Peptide (test code = 53433-6) 3663.2 0-100 [facility] [place] pyogenes antigen detection in fwghvx8114-66-14 11:00:00* Test Item Value Reference Range Interpretation Comments Group A Streptococcus Screen (test code = 16998-6) NEGATIVE NEG ATIVE [facility] plasma magnesium measurement (mass/volume)2019-07-11 11:00:00* Test Item Value Reference Range Interpretation Comments Magnesium Level (test code = 29929-4) 2.0 1.3-2.1 [facility] Ygo-gWba1286-80-12 11:00:00* Test Item Value Reference Range Interpretation Comments B-Type Natriuretic Peptide (test code = 20354-4) 3663.2 0-100 [facility] [place] pyogenes antigen detection in dvvsot4858-69-70 11:00:00* Test Item Value Reference Range Interpretation Comments Group A Streptococcus Screen (test code = 46662-1) NEGATIVE NEG ATIVE [facility] color ylzkwrgzsfqom6156-93-90 10:51:00* Test Item Value Reference Range Interpretation Comments Urine Color (test code = 5778-6) YELLOW YELLOW [facility] xgdecoc9073-83-33 10:51:00* Test Item Value Reference Range Interpretation Comments Urine Clarity (test code = 02631-0) SL CLOUDY CLEAR [facility] [place]pecific gravity of Urine by Test strip 2019-07-11 10:51:00* Test Item Value Reference Range Interpretation Comments Urine Specific [place] (test code = 5811-5) 1.025 1.010-1.02 5 [facility] pH measurement by automated test yfivl3758-33-50 10:51:00* Test Item Value Reference Range Interpretation Comments Urine pH (test code = 34811-1) 6 5-7 [facility] leukocyte esterase detection by kamlrlim0861-37-67 10:51:00* Test Item Value Reference Range Interpretation Comments Urine Leukocyte Esterase (test code = 5799-2) MODERATE NEGATIVE [facility] nitrite qpvlhzuwg1314-88-68 10:51:00* Test Item Value Reference Range Interpretation Comments Urine Nitrite (test code = 23959-4) NEGATIVE NEGATIVE [facility] protein measurement by test strip (mass/volume)2019-07-11 10:51:00* Test Item Value Reference Range Interpretation Comments Urine Protein (test code = 5804-0) 2+ NEGATIVE [facility] glucose qpqpcvzek7844-94-12 10:51:00* Test Item Value Reference Range Interpretation Comments Urine Glucose (UA) (test code = 2349-9) 1+ NEGATIVE [facility]field[facility] ketones detection by automated test pdado9649-09-48 10:51:00* Test Item Value Reference Range Interpretation Comments Urine Ketones (test code = 12061-6) NEGATIVE NEGATIVE [facility]fieldU[facility] urobilinogen measurement by test strip (mass/volume)2019-07-11 10:51:00* Test Item Value Reference Range Interpretation Comments Urine Urobilinogen (test code = 53182-0) 0.2 0.2-1 [facility] total bilirubin measurement (mass/volume)2019-07-11 10:51:00* Test Item Value Reference Range Interpretation Comments Urine Bilirubin (test code = 1978-6) SMALL NEGATIVE [facility]field[facility] erythrocytes losrzncqt7957-60-87 10:51:00* Test Item Value Reference Range Interpretation Comments Urine Blood (test code = 75540-9) MODERATE NEGATIVE [facility]fieldAutom[facility] urine sediment leukocyte count by microscopy (number/high power field)2019-07-11 10:51:00* Test Item Value Reference Range Interpretation Comments Urine WBC (test code = 5821-4) 6-10 0-5 [facility]fieldErythrocytes detection in urine sediment by light ssylukxddd9688-19-64 10:51:00* Test Item Value Reference Range Interpretation Comments Urine RBC (test code = 21824-3) 0-5 0-5 [facility]fieldBacteria detection in urine sediment by light tcdzthbusj6854-52-21 10:51:00* Test Item Value Reference Range Interpretation Comments Urine Bacteria (test code = 42059-4) FEW NONE [facility]fieldEpithelial cells detection in urine sediment by light lynvtkmlxz9827-86-96 10:51:00* Test Item Value Reference Range Interpretation Comments Urine Epithelial Cells (test code = 76165-5) FEW NONE [facility]fieldU[facility] color tjrmbczqrhvky2820-97-16 10:51:00* Test Item Value Reference Range Interpretation Comments Urine Color (test code = 5778-6) YELLOW YELLOW [facility]fieldU[facility] qdgudus2189-75-87 10:51:00* Test Item Value Reference Range Interpretation Comments Urine Clarity (test code = 88800-3) SL CLOUDY CLEAR [facility] [place]pecific gravity of Urine by Test strip 2019-07-11 10:51:00* Test Item Value Reference Range Interpretation Comments Urine Specific [place] (test code = 5811-5) 1.025 1.010-1.02 5 [facility] pH measurement by automated test pdjev0325-22-73 10:51:00* Test Item Value Reference Range Interpretation Comments Urine pH (test code = 19444-1) 6 5-7 [facility] leukocyte esterase detection by tretzdel1838-87-85 10:51:00* Test Item Value Reference Range Interpretation Comments Urine Leukocyte Esterase (test code = 5799-2) MODERATE NEGATIVE [facility] nitrite fuoatwvly0628-15-72 10:51:00* Test Item Value Reference Range Interpretation Comments Urine Nitrite (test code = 09750-0) NEGATIVE NEGATIVE [facility] protein measurement by test strip (mass/volume)2019-07-11 10:51:00* Test Item Value Reference Range Interpretation Comments Urine Protein (test code = 5804-0) 2+ NEGATIVE [facility] glucose vmnmsyxkm1087-78-67 10:51:00* Test Item Value Reference Range Interpretation Comments Urine Glucose (UA) (test code = 2349-9) 1+ NEGATIVE [facility] ketones detection by automated test spamj1589-05-04 10:51:00* Test Item Value Reference Range Interpretation Comments Urine Ketones (test code = 93652-6) NEGATIVE NEGATIVE [facility] urobilinogen measurement by test strip (mass/volume)2019-07-11 10:51:00* Test Item Value Reference Range Interpretation Comments Urine Urobilinogen (test code = 57607-0) 0.2 0.2-1 [facility] total bilirubin measurement (mass/volume)2019-07-11 10:51:00* Test Item Value Reference Range Interpretation Comments Urine Bilirubin (test code = 1978-6) SMALL NEGATIVE [facility]fieldU[facility] erythrocytes qoqsiipym3684-25-43 10:51:00* Test Item Value Reference Range Interpretation Comments Urine Blood (test code = 98701-7) MODERATE NEGATIVE [facility]fieldAutomated urine sediment leukocyte count by microscopy (number/high power field)2019-07-11 10:51:00* Test Item Value Reference Range Interpretation Comments Urine WBC (test code = 5821-4) 6-10 0-5 [facility]fieldErythrocytes detection in urine sediment by light dvwfyjocud4259-03-76 10:51:00* Test Item Value Reference Range Interpretation Comments Urine RBC (test code = 03589-9) 0-5 0-5 [facility]fieldBacteria detection in urine sediment by light beeaamiqkf4214-21-45 10:51:00* Test Item Value Reference Range Interpretation Comments Urine Bacteria (test code = 70361-1) FEW NONE [facility]fieldEpithelial cells detection in urine sediment by light qvywdlkjms2097-77-75 10:51:00* Test Item Value Reference Range Interpretation Comments Urine Epithelial Cells (test code = 47181-5) FEW NONE [facility]fieldU[facility] color pmvepvvxfzxax3394-66-71 10:51:00* Test Item Value Reference Range Interpretation Comments Urine Color (test code = 5778-6) YELLOW YELLOW [facility]fieldU[facility] lvavoxv7212-46-11 10:51:00* Test Item Value Reference Range Interpretation Comments Urine Clarity (test code = 47405-5) SL CLOUDY CLEAR [facility] [place]pecific gravity of Urine by Test strip 2019-07-11 10:51:00* Test Item Value Reference Range Interpretation Comments Urine Specific [place] (test code = 5811-5) 1.025 1.010-1.02 5 [facility] pH measurement by automated test dlkig1373-94-38 10:51:00* Test Item Value Reference Range Interpretation Comments Urine pH (test code = 60135-9) 6 5-7 [facility]fieldU[facility] leukocyte esterase detection by wwzcgyak0970-37-99 10:51:00* Test Item Value Reference Range Interpretation Comments Urine Leukocyte Esterase (test code = 5799-2) MODERATE NEGATIVE [facility]field[facility] nitrite bqikhteqk0305-96-01 10:51:00* Test Item Value Reference Range Interpretation Comments Urine Nitrite (test code = 03570-8) NEGATIVE NEGATIVE [facility]field[facility] protein measurement by test strip (mass/volume)2019-07-11 10:51:00* Test Item Value Reference Range Interpretation Comments Urine Protein (test code = 5804-0) 2+ NEGATIVE [facility]fieldU[facility] glucose tanedayyr8813-24-49 10:51:00* Test Item Value Reference Range Interpretation Comments Urine Glucose (UA) (test code = 2349-9) 1+ NEGATIVE [facility]fieldU[facility] ketones detection by automated test tdaal6136-78-68 10:51:00* Test Item Value Reference Range Interpretation Comments Urine Ketones (test code = 78228-7) NEGATIVE NEGATIVE [facility]fieldU[facility] urobilinogen measurement by test strip (mass/volume)2019-07-11 10:51:00* Test Item Value Reference Range Interpretation Comments Urine Urobilinogen (test code = 68968-2) 0.2 0.2-1 [facility] total bilirubin measurement (mass/volume)2019-07-11 10:51:00* Test Item Value Reference Range Interpretation Comments Urine Bilirubin (test code = 1978-6) SMALL NEGATIVE [facility]fieldU[facility] erythrocytes fpquajlpi6838-67-79 10:51:00* Test Item Value Reference Range Interpretation Comments Urine Blood (test code = 78839-3) MODERATE NEGATIVE [facility]fieldAutomated urine sediment leukocyte count by microscopy (number/high power field)2019-07-11 10:51:00* Test Item Value Reference Range Interpretation Comments Urine WBC (test code = 5821-4) 6-10 0-5 [facility]fieldErythrocytes detection in urine sediment by light uludlqkvzw8312-06-16 10:51:00* Test Item Value Reference Range Interpretation Comments Urine RBC (test code = 62693-8) 0-5 0-5 [facility]fieldBacteria detection in urine sediment by light nsqutqmvox3449-72-75 10:51:00* Test Item Value Reference Range Interpretation Comments Urine Bacteria (test code = 62857-6) FEW NONE [facility]fieldEpithelial cells detection in urine sediment by light atmgbdqztp9800-72-91 10:51:00* Test Item Value Reference Range Interpretation Comments Urine Epithelial Cells (test code = 27731-5) FEW NONE [facility]fieldU[facility] color ijsisorlukfej9252-00-39 10:51:00* Test Item Value Reference Range Interpretation Comments Urine Color (test code = 5778-6) YELLOW YELLOW [facility]fieldU[facility] rutnvto4788-07-50 10:51:00* Test Item Value Reference Range Interpretation Comments Urine Clarity (test code = 28841-4) SL CLOUDY CLEAR [facility] [place] gravity of Urine by Test strip 2019-07-11 10:51:00* Test Item Value Reference Range Interpretation Comments Urine Specific [place] (test code = 5811-5) 1.025 1.010-1.02 5 [facility] pH measurement by automated test hirae2184-93-26 10:51:00* Test Item Value Reference Range Interpretation Comments Urine pH (test code = 90189-7) 6 5-7 [facility]fieldU[facility] leukocyte esterase detection by rgkesolr7538-73-26 10:51:00* Test Item Value Reference Range Interpretation Comments Urine Leukocyte Esterase (test code = 5799-2) MODERATE NEGATIVE [facility]fieldU[facility] nitrite cqtzqnvyd4039-14-52 10:51:00* Test Item Value Reference Range Interpretation Comments Urine Nitrite (test code = 56009-3) NEGATIVE NEGATIVE [facility]fieldU[facility] protein measurement by test strip (mass/volume)2019-07-11 10:51:00* Test Item Value Reference Range Interpretation Comments Urine Protein (test code = 5804-0) 2+ NEGATIVE [facility]fieldU[facility] glucose tbmxirdxy6972-85-12 10:51:00* Test Item Value Reference Range Interpretation Comments Urine Glucose (UA) (test code = 2349-9) 1+ NEGATIVE [facility]fieldU[facility] ketones detection by automated test ogmrt2613-92-78 10:51:00* Test Item Value Reference Range Interpretation Comments Urine Ketones (test code = 93126-0) NEGATIVE NEGATIVE [facility]fieldU[facility] urobilinogen measurement by test strip (mass/volume)2019-07-11 10:51:00* Test Item Value Reference Range Interpretation Comments Urine Urobilinogen (test code = 70160-8) 0.2 0.2-1 [facility]fieldU[facility] total bilirubin measurement (mass/volume)2019-07-11 10:51:00* Test Item Value Reference Range Interpretation Comments Urine Bilirubin (test code = 1978-6) SMALL NEGATIVE [facility]fieldU[facility] erythrocytes dfddmheei8266-40-31 10:51:00* Test Item Value Reference Range Interpretation Comments Urine Blood (test code = 02600-8) MODERATE NEGATIVE [facility]fieldAutom[facility] urine sediment leukocyte count by microscopy (number/high power field)2019-07-11 10:51:00* Test Item Value Reference Range Interpretation Comments Urine WBC (test code = 5821-4) 6-10 0-5 [facility]fieldErythrocytes detection in urine sediment by light ptxxzaqbog4912-30-03 10:51:00* Test Item Value Reference Range Interpretation Comments Urine RBC (test code = 55568-8) 0-5 0-5 [facility]fieldBacteria detection in urine sediment by light qvxtllvgve3080-95-10 10:51:00* Test Item Value Reference Range Interpretation Comments Urine Bacteria (test code = 97048-4) FEW NONE [facility]fieldEpithelial cells detection in urine sediment by light azhfdvghkt0693-87-20 10:51:00* Test Item Value Reference Range Interpretation Comments Urine Epithelial Cells (test code = 44694-0) FEW NONE [facility]fieldU[facility] color avsceccavfnsf2083-10-54 10:51:00* Test Item Value Reference Range Interpretation Comments Urine Color (test code = 5778-6) YELLOW YELLOW [facility]fieldU[facility] xgyijct3328-65-83 10:51:00* Test Item Value Reference Range Interpretation Comments Urine Clarity (test code = 78502-7) SL CLOUDY CLEAR [facility] [place] gravity of Urine by Test strip 2019-07-11 10:51:00* Test Item Value Reference Range Interpretation Comments Urine Specific [place] (test code = 5811-5) 1.025 1.010-1.02 5 [facility] pH measurement by automated test sgxxm1882-57-47 10:51:00* Test Item Value Reference Range Interpretation Comments Urine pH (test code = 72878-7) 6 5-7 [facility]fieldU[facility] leukocyte esterase detection by nccbzawb4610-89-10 10:51:00* Test Item Value Reference Range Interpretation Comments Urine Leukocyte Esterase (test code = 5799-2) MODERATE NEGATIVE [facility]fieldUrine nitrite wcoilzwya7080-66-53 10:51:00* Test Item Value Reference Range Interpretation Comments Urine Nitrite (test code = 83628-1) NEGATIVE NEGATIVE [facility]fieldU[facility] protein measurement by test strip (mass/volume)2019-07-11 10:51:00* Test Item Value Reference Range Interpretation Comments Urine Protein (test code = 5804-0) 2+ NEGATIVE [facility]fieldU[facility] glucose dunkeknjh0731-92-77 10:51:00* Test Item Value Reference Range Interpretation Comments Urine Glucose (UA) (test code = 2349-9) 1+ NEGATIVE [facility]fieldU[facility] ketones detection by automated test hotkx0150-48-10 10:51:00* Test Item Value Reference Range Interpretation Comments Urine Ketones (test code = 11453-5) NEGATIVE NEGATIVE [facility]fieldUrine urobilinogen measurement by test strip (mass/volume)2019-07-11 10:51:00* Test Item Value Reference Range Interpretation Comments Urine Urobilinogen (test code = 29706-5) 0.2 0.2-1 [facility]fieldU[facility] total bilirubin measurement (mass/volume)2019-07-11 10:51:00* Test Item Value Reference Range Interpretation Comments Urine Bilirubin (test code = 1978-6) SMALL NEGATIVE [facility]fieldU[facility] erythrocytes vmuzhcnmr9297-54-46 10:51:00* Test Item Value Reference Range Interpretation Comments Urine Blood (test code = 01757-8) MODERATE NEGATIVE [facility]fieldAutomated urine sediment leukocyte count by microscopy (number/high power field)2019-07-11 10:51:00* Test Item Value Reference Range Interpretation Comments Urine WBC (test code = 5821-4) 6-10 0-5 [facility]fieldErythrocytes detection in urine sediment by light lymmhfgoxz8638-32-42 10:51:00* Test Item Value Reference Range Interpretation Comments Urine RBC (test code = 68078-6) 0-5 0-5 [facility]fieldBacteria detection in urine sediment by light kfvhhxablw4376-57-37 10:51:00* Test Item Value Reference Range Interpretation Comments Urine Bacteria (test code = 12528-9) FEW NONE [facility]fieldEpithelial cells detection in urine sediment by light gpoupfoejn5042-10-83 10:51:00* Test Item Value Reference Range Interpretation Comments Urine Epithelial Cells (test code = 03377-3) FEW NONE [facility]villeodium Xszlm1450-56-66 15:21:00* Test Item Value Reference Range Interpretation Comments Sodium Level (test code = 2951-2) 137 136-145 [facility]fieldPotassium Vtefz8964-39-03 15:21:00* Test Item Value Reference Range Interpretation Comments Potassium Level (test code = 2823-3) 3.8 3.5-5.1 [facility]fieldChloride Uwjfs3758-03-93 15:21:00* Test Item Value Reference Range Interpretation Comments Chloride Level (test code = 2075-0) 97 98-107 L [facility]fieldCarbon Dioxide Xnnff9172-13-88 15:21:00* Test Item Value Reference Range Interpretation Comments Carbon Dioxide Level (test code = 2028-9) 29 22-29 [facility]fieldAnion Pma5697-08-53 15:21:00* Test Item Value Reference Range Interpretation Comments Anion Gap (test code = 12998-6) 14.8 8-16 [facility]fieldBlood Urea Sizyeghb1364-38-47 15:21:00* Test Item Value Reference Range Interpretation Comments Blood Urea Nitrogen (test code = 3094-0) 28 7-26 H [facility]fieldCreatinine2019-11-18 15:21:00* Test Item Value Reference Range Interpretation Comments Creatinine (test code = 2160-0) 4.43 0.72-1.25 H [facility]fieldBUN/Creatinine Xzkab6571-58-28 15:21:00* Test Item Value Reference Range Interpretation Comments BUN/Creatinine Ratio (test code = 3097-3) 6 6-25 [facility] MansfieldEstimat Glomerular Filtration Rate 2019-06-17 15:21:00* Test Item Value Reference Range Interpretation Comments Estimat Glomerular Filtration Rate (test code = 401118539) 14 >60 L Ranges were taken from the National Kidney Disease Education Program and the [facility] [employer] literature.Reference ranges:60 or greater: Wdcpwt57-18 ( for 3 consecutive months): Chronic kidney disease 15 or less: Kidney failureTexas Health Hospital MansfieldGlucose Iderm8883-96-03 15:21:00* Test Item Value Reference Range Interpretation Comments Glucose Level (test code = AXE1438) 125 74-118 H [facility]fieldCalcium Ywqta4114-98-56 15:21:00* Test Item Value Reference Range Interpretation Comments Calcium Level (test code = 95413-0) 9.2 8.4-10.2 [facility]
[2020-01-05 16:50] LABS: BASOPHILS % 0.4 % (0.0-1.0); EOSINOPHILS # (AUTO) 0.1 (0.0-0.4); EOSINOPHILS % 0.9 % (0.0-6.0); HEMOGLOBIN 7.7 g/dL (14.0-18.0); LYMPHOCYTES # (AUTO) 0.4 (1.0-3.2); LYMPHOCYTES % 5.2 % (18.0-39.1); MEAN CORPUSCULAR HEMOGLOBIN 30.9 pg (28-32); MEAN CORPUSCULAR HGB CONC 32.1 g/dL (31-35); MEAN CORPUSCULAR VOLUME 96.4 fL (81-99); MONOCYTES # (AUTO) 0.7 (0.2-0.8); MONOCYTES % 8.3 % (4.4-11.3); NEUTROPHILS # (AUTO) 6.6 (2.1-6.9); NEUTROPHILS % 84.7 % (38.7-80.0); PLATELET COUNT 214 x10e3/uL (140-360); RED BLOOD COUNT 2.49 x10e6/uL (4.3-5.7); RED CELL DISTRIBUTION WIDTH 16.1 % (11.7-14.4)
[2020-01-05 17:02] LABS: ALBUMIN 2.5 g/dL (3.5-5.0); ALBUMIN/GLOBULIN RATIO 0.6 (0.8-2.0); ANION GAP 13.5 mmol/L (8-16); CALCIUM 8.3 mg/dL (8.4-10.2); CREATININE, SERUM 3.45 mg/dL (0.72-1.25); POTASSIUM 4.5 mmol/L (3.5-5.1)
[2020-01-05 17:34] LABS: INR 1.05; PROTHROMBIN TIME 14.4 seconds (11.9-14.5)
[2020-01-05 17:35] LABS: PARTIAL THROMBOPLASTIN TIME 32.2 seconds (23.8-35.5)
--- NOTE | 2020-01-05 18:02 | Emergency Department Note ---
History of Present Illnes History of Present Illness Chief Complaint: General Medicine Complaints History of Present Illness This is a 54 year old male PATIENT IN FROM HOME WITH COMPLAINTS OF NOSE BLEED OFF AND ON SINCE 0400; PATIENT ALERT AND ORIENTED, RESP EVEN AND NONLABORED. NO BLEEDING AT THIS TIME. PATIENT HAS BEEN SEEN 5 OTHER TIMES FOR THE SAME; PATIENT IS SEEN BY DR CONDON. Historian: Patient, Family Member Arrival Mode: Car Clinical Specialist Vascular Required: Yes Onset (how long ago): hour(s) (12) Location: RIGHT NARE Quality: BLEEDING Radiation: non-radiation Severity: moderate Onset quality: sudden Timing of current episode: intermittent Progression: waxing and waning Chronicity: recurrent Context: recent illness Relieving factors: other (PT USES AFRIN NS BUT LEANS BACK AND DOESN'T HOLD PRESSURE PROPERLY) Exacerbating factors: none Treatments prior to arrival: none Past Medical/Family History Physician Review I have reviewed the patient's past medical and family history. Any updates have been documented here. Past Medical History Recent Fever: No Clinical Suspicion of Infectio: No New/Unexplained Change in Ment: No Past Medical History: Hypertension, Diabetes, ESRD, Chronic Kidney Disease Other Medical History: Legally blind Other Surgery: Cardiac stents x2 Social History Smoking Cessation: Never Smoker Counseling Performed: No Alcohol Use: None Any Illegal Drug Use: No TB Exposure/Symptoms: No Physically hurt or threatened: No Family History Family history of heart diseas: No Other Last Tetanus: UTD Any Pre-Existing Lines (PICC,: No Is patient up to date on immun: Yes Last Flu: UTD Last Pneumovax: NA Review of Systems Review of Systems Constitutional: no symptoms EENTM: as per HPI (NOSE BLEED) Cardiovascular: no symptoms Respiratory: no symptoms Gastrointestinal: no symptoms Genitourinary: no symptoms Musculoskeletal: no symptoms Neurological: no symptoms Psychological: no symptoms Endocrine: no symptoms Hematological/Lymphatic: no symptoms Review of other systems All other systems reviewed and negative. Physical Exam Related Data Allergies: Coded Allergies: No Known Allergies (Unverified , 06/17/19) Triage Vital Signs Vital Signs Date Time Temp Pulse Resp B/P (MAP) Pulse Ox O2 Delivery O2 Flow Rate FiO2 01/05/20 15:52 99.0 70 16 147/73 96 Physical Exam CONSTITUTIONAL Constitutional: well-developed, well-nourished HENT HENT: other (RIGHT NARE WITH MINIMAL CLOTTED BLOOD, NO ACTIVE BLEEDING) HENT L/R: left ext ear normal, right ext ear normal EYES Eyes: PERRL, conjunctivae normal NECK Neck: ROM normal PULMONARY Pulmonary: effort normal, breath sounds normal CARDIOVASCULAR Cardiovascular: regular rhythm, heart sounds normal, capillary refill normal, normal rate GASTROINTESTINAL Abdominal: soft, nontender, bowel sounds normal GENITOURINARY Genitourinary: exam deferred SKIN Skin: warm, dry MUSCULOSKELETAL Musculoskeletal: ROM normal NEUROLOGICAL Neurological: alert, oriented x 3, no gross motor or sensory deficits PSYCHOLOGICAL Psychological: mood/affect normal, judgement normal Results Laboratory Result Diagram: 01/05/20 1617 01/05/20 1617 Laboratory Laboratory Tests Test 01/05/20 16:17 White Blood Count 7.84 x10e3/uL (4.8-10.8) Red Blood Count 2.49 x10e6/uL (4.3-5.7) Hemoglobin 7.7 g/dL (14.0-18.0) Hematocrit 24.0 % (38.2-49.6) Mean Corpuscular Volume 96.4 fL (81-99) Mean Corpuscular Hemoglobin 30.9 pg (28-32) Mean Corpuscular Hemoglobin Concent 32.1 g/dL (31-35) Red Cell Distribution Width 16.1 % (11.7-14.4) Platelet Count 214 x10e3/uL (140-360) Neutrophils (%) (Auto) 84.7 % (38.7-80.0) Lymphocytes (%) (Auto) 5.2 % (18.0-39.1) Monocytes (%) (Auto) 8.3 % (4.4-11.3) Eosinophils (%) (Auto) 0.9 % (0.0-6.0) Basophils (%) (Auto) 0.4 % (0.0-1.0) Neutrophils # (Auto) 6.6 (2.1-6.9) Lymphocytes # (Auto) 0.4 (1.0-3.2) Monocytes # (Auto) 0.7 (0.2-0.8) Eosinophils # (Auto) 0.1 (0.0-0.4) Basophils # (Auto) 0.0 (0.0-0.1) Absolute Immature Granulocyte (auto 0.04 x10e3/uL (0-0.1) Prothrombin Time 14.4 seconds (11.9-14.5) Prothromb Time International Ratio 1.05 Activated Partial Thromboplast Time 32.2 seconds (23.8-35.5) Sodium Level 137 mmol/L (136-145) Potassium Level 4.5 mmol/L (3.5-5.1) Chloride Level 101 mmol/L (98-107) Carbon Dioxide Level 27 mmol/L (22-29) Anion Gap 13.5 mmol/L (8-16) Blood Urea Nitrogen 30 mg/dL (7-26) Creatinine 3.45 mg/dL (0.72-1.25) Estimat Glomerular Filtration Rate 19 ML/MIN (60-) BUN/Creatinine Ratio 9 (6-25) Glucose Level 171 mg/dL (74-118) Calcium Level 8.3 mg/dL (8.4-10.2) Total Bilirubin 1.0 mg/dL (0.2-1.2) Aspartate Amino Transf (AST/SGOT) 15 IU/L (5-34) Alanine Aminotransferase (ALT/SGPT) 14 IU/L (0-55) Alkaline Phosphatase 542 IU/L (40-150) Total Protein 6.5 g/dL (6.5-8.1) Albumin 2.5 g/dL (3.5-5.0) Globulin 4.0 g/dL (2.3-3.5) Albumin/Globulin Ratio 0.6 (0.8-2.0) Lab results reviewed: Yes Laboratory comments CHRONIC ANEMIA AND RENAL INSUFF Critical Care Time Subsequent provider I assumed direction of critical care for this patient from another provider of my specialty. Assessment & Plan Reassessment Reassessment CHECK CBC, CHEM, PT/PTT - R/O ACUTE ON CHRONIC ANEMIA, COAGULOPATHY Assessment & Plan Final Impression: (1) Epistaxis Assessment & Plan DC HOME, F/U DR CONDON TOMORROW, EDUCATED HIM REGARDING PROPER PRESSURE AFTER USING AFRIN AND SITTING FORWARD Depart Disposition: HOME, SELF-CARE Last Vital Signs Date Time Temp Pulse Resp B/P (MAP) Pulse Ox O2 Delivery O2 Flow Rate FiO2 01/05/20 15:52 99.0 70 16 147/73 96 Home Meds Reported Medications Cefdinir (OMNICEF) 300 Mg Capsule, 300 MG PO Q12H, CAP 01/03/20 Nifedipine (NIFEDIPINE ER) 30 Mg Tablet.er, 30 MG PO DAILY 01/03/20 Furosemide (FUROSEMIDE) 40 Mg Tablet, 40 MG PO Daily, #30 TAB 01/03/20 Atorvastatin Calcium (ATORVASTATIN CALCIUM) 20 Mg Tablet, 20 MG PO HS, #30 TAB 01/03/20 Lisinopril (LISINOPRIL) 10 Mg Tablet, 20 MG PO DAILY, #30 TAB 07/11/19 Tamsulosin Hcl* (FLOMAX*) 0.4 Mg Cap, 0.4 MG PO DAILY@1700, #30 CAP 07/11/19 Carvedilol (CARVEDILOL) 12.5 Mg Tablet, 12.5 MG PO BID, #60 TAB 07/11/19 Metformin Hcl (METFORMIN HCL) 500 Mg Tablet, 1000 MG PO HS, #60 TAB 07/11/19 EMETERIO BRYANT MD Jan 05, 2020 18:01
== END 2020-01-05 18:13 | disposition home or self-care (01) ==
LOC: ER 15:47
DX: R04.0 Epistaxis (principal); I12.0 Hypertensive chronic kidney disease with stage 5 chronic kidney disease or end stage renal disease; E11.22 Type 2 diabetes mellitus with diabetic chronic kidney disease; N18.6 End stage renal disease; Z79.84 Long term (current) use of oral hypoglycemic drugs; H54.8 Legal blindness, as defined in USA; Z95.5 Presence of coronary angioplasty implant and graft
CPT/HCPCS: 36415; 80053; 85025; 85610; 85730; 86850; 86900; 99283

== ENCOUNTER 2020-01-17 21:54 | Emergency (ER) | payer MEDICARE, OTHER ==
[~2020-01-17] VITALS: Ht 177.8 cm; Wt 87.5 kg
--- NOTE | 2020-01-17 22:27 | Emergency Department Note ---
History of Present Illnes History of Present Illness Chief Complaint: General Medicine Complaints History of Present Illness This is a 54 year old male with H/O ESRD presents to the ED for gen weakness. Previous h/o Anemia. Severity: moderate Onset quality: gradual Duration (how long): day(s) Timing of current episode: constant Progression: worsening Relieving factors: none Exacerbating factors: none Associated symptoms: Reports weakness Treatments prior to arrival: none Previous service: tests performed, observation, one or more referrals, re- evaluation Past Medical/Family History Physician Review I have reviewed the patient's past medical and family history. Any updates have been documented here. Past Medical History Recent Fever: No Clinical Suspicion of Infectio: No New/Unexplained Change in Ment: No Past Medical History: Hypertension, Diabetes, ESRD, Chronic Kidney Disease Other Medical History: Legally blind Other Surgery: Cardiac stents x2 Social History Smoking Cessation: Never Smoker Alcohol Use: None Any Illegal Drug Use: No Other Last Tetanus: UTD Review of Systems Review of Systems Constitutional: Reports weakness EENTM: Reports no symptoms Cardiovascular: Reports no symptoms Respiratory: Reports no symptoms Gastrointestinal: Reports no symptoms Genitourinary: Reports no symptoms Musculoskeletal: Reports no symptoms Integumentary: Reports no symptoms Neurological: Reports no symptoms Psychological: Reports no symptoms Endocrine: Reports no symptoms Hematological/Lymphatic: Reports no symptoms Physical Exam Related Data Allergies: Coded Allergies: No Known Allergies (Unverified , 06/17/19) Triage Vital Signs Vital Signs Date Time Temp Pulse Resp B/P (MAP) Pulse Ox O2 Delivery O2 Flow Rate FiO2 01/17/20 22:02 97.9 74 17 152/76 100 Vital signs reviewed: Yes Physical Exam CONSTITUTIONAL Constitutional: Present well-developed, Present well-nourished HENT HENT: Present normocephalic, Present atraumatic, Present oropharynx clear/moist, Present nose normal HENT L/R: Present left ext ear normal, Present right ext ear normal EYES Eyes: Reports PERRL, Reports conjunctivae normal NECK Neck: Present ROM normal PULMONARY Pulmonary: Present effort normal, Present breath sounds normal CARDIOVASCULAR Cardiovascular: Present regular rhythm, Present heart sounds normal, Present capillary refill normal, Present normal rate GASTROINTESTINAL Abdominal: Present soft, Present nontender, Present bowel sounds normal GENITOURINARY Genitourinary: Present exam deferred SKIN Skin: Present warm, Present dry MUSCULOSKELETAL Musculoskeletal: Present ROM normal NEUROLOGICAL Neurological: Present alert, Present oriented x 3, Present no gross motor or sensory deficits PSYCHOLOGICAL Psychological: Present mood/affect normal, Present judgement normal Results Laboratory Lab results reviewed: Yes Laboratory comments CBC : HgB 6.6 CMP : Cr elevated Assessment & Plan Medical Decision Making MDM 54 yom with recurrent h/o of anemia. Previously worked up for GIB. Patient given 2 units of packed RBC's . Patient does not wish to be admitted to the hospital. Discharged to home hemodynamically stable. Assessment & Plan Final Impression: (1) Weakness (2) ANEMIA, UNSPECIFIED (3) End stage renal disease (4) HYP CHR KIDNEY DISEASE W STAGE 5 CHR KIDNEY DISEASE OR ESRD Depart Disposition: HOME, SELF-snf Meds Reported Medications Cefdinir (OMNICEF) 300 Mg Capsule, 300 MG PO Q12H, CAP 01/03/20 Nifedipine (NIFEDIPINE ER) 30 Mg Tablet.er, 30 MG PO DAILY 01/03/20 Furosemide (FUROSEMIDE) 40 Mg Tablet, 40 MG PO Daily, #30 TAB 01/03/20 Atorvastatin Calcium (ATORVASTATIN CALCIUM) 20 Mg Tablet, 20 MG PO HS, #30 TAB 01/03/20 Lisinopril (LISINOPRIL) 10 Mg Tablet, 20 MG PO DAILY, #30 TAB 07/11/19 Tamsulosin Hcl* (FLOMAX*) 0.4 Mg Cap, 0.4 MG PO DAILY@1700, #30 CAP 07/11/19 Carvedilol (CARVEDILOL) 12.5 Mg Tablet, 12.5 MG PO BID, #60 TAB 07/11/19 Metformin Hcl (METFORMIN HCL) 500 Mg Tablet, 1000 MG PO HS, #60 TAB 07/11/19 RAKEL ALVAREZ DO Jan 17, 2020 22:27
[2020-01-17 22:56] LABS: BASOPHILS % 0.6 % (0.0-1.0); EOSINOPHILS # (AUTO) 0.1 (0.0-0.4); EOSINOPHILS % 1.3 % (0.0-6.0); HEMATOCRIT 20.5 % (38.2-49.6); LYMPHOCYTES # (AUTO) 0.4 (1.0-3.2); LYMPHOCYTES % 7.9 % (18.0-39.1); MEAN CORPUSCULAR HGB CONC 32.2 g/dL (31-35); MEAN CORPUSCULAR VOLUME 96.2 fL (81-99); MONOCYTES # (AUTO) 0.5 (0.2-0.8); MONOCYTES % 9.4 % (4.4-11.3); NEUTROPHILS # (AUTO) 4.4 (2.1-6.9); NEUTROPHILS % 80.4 % (38.7-80.0); PLATELET COUNT 188 x10e3/uL (140-360); RED BLOOD COUNT 2.13 x10e6/uL (4.3-5.7); RED CELL DISTRIBUTION WIDTH 14.8 % (11.7-14.4)
[2020-01-17 22:58] LABS: HEMOGLOBIN 6.6 g/dL (14.0-18.0)
[2020-01-17 23:08] LABS: ALBUMIN 2.8 g/dL (3.5-5.0); ALBUMIN/GLOBULIN RATIO 0.6 (0.8-2.0); CALCIUM 8.5 mg/dL (8.4-10.2); CREATININE, SERUM 2.9 mg/dL (0.72-1.25)
[2020-01-17] MEDS ORDERED: SODIUM CHLORIDE 0.9% 250ML 250 ML IV ONE (23:15)
--- NOTE | 2020-01-18 00:11 | NUR ---
OBTAINED SIGNATURES FROM PT BROTHER PT IS LEGALLY BLIND, PT VERBALIZES APPROVAL OF BROTHER DOING SUCH AND OF ACCEPTANCE OF BLOOD TRANSFUSION, WITNESSED SIGNATURE AND PLACED ON PT CHART.
[2020-01-18] MEDS ORDERED: SODIUM CHLORIDE 0.9% 250ML 250 ML ONE (02:15)
--- NOTE | 2020-01-18 02:25 | NUR ---
BLOOD TRANSFUSION BEDSIDE VERIFICATION COMPLETED WITH SHARMIN STARR AT THIS TIME; PT V/S/S, WILL REMAIN AT BEDSIDE FOR 15 MINUTES FOR CONTINUED ASSESSMENT AND PT SAFETY; WILL CONTINUE TO MONITOR DURING INFUSION; PT HAS HX OF TRANSFUSIONS AND AWARE OF POSSIBLE ADVERSE REACTIONS TO NOTIFY OF, CALL LIGHT IN REACH.
--- NOTE | 2020-01-18 04:55 | NUR ---
BLOOD TRANSFUSION BEDSIDE VERIFICATION COMPLETED WITH SHARMIN STARR AT THIS TIME; PT V/S/S, WILL REMAIN AT BEDSIDE FOR 15 MINUTES FOR CONTINUED ASSESSMENT AND PT SAFETY; WILL CONTINUE TO MONITOR DURING INFUSION; DURING THIS VISIT PT HAD ONE UNIT GIVEN, THIS IS THE SECOND UNIT, PT AWARE TO CALL IF NEEDED TO REPORT CHANGES IN CONDITION, CALL LIGHT IN REACH.
--- NOTE | 2020-01-18 06:30 | NUR ---
BLOOD TRANSFUSION COMPLETE AT THIS TIME, NO S/S OF ADVERSE REACTION AT THIS TIME, V/S/S.
--- NOTE | 2020-01-18 06:36 | NUR ---
LVM TO BROTHER TONY TO INFORM PT IS READY TO BE TAKEN HOME.
--- NOTE | 2020-01-18 06:55 | NUR ---
CALLED BROTHER AGAIN, STATES EN ROUTE.
== END 2020-01-18 07:14 | disposition home or self-care (01) ==
LOC: ER 21:54
DX: R53.1 Weakness (principal); D64.9 Anemia, unspecified; I12.0 Hypertensive chronic kidney disease with stage 5 chronic kidney disease or end stage renal disease; E11.22 Type 2 diabetes mellitus with diabetic chronic kidney disease; N18.6 End stage renal disease; Z99.2 Dependence on renal dialysis; Z79.84 Long term (current) use of oral hypoglycemic drugs
CPT/HCPCS: 36415; 80053; 85025; 86850; 86900; 86920; 99284; J7050; P9016

== ENCOUNTER → 2020-05-26 | Outpatient (CLI) | payer MEDICARE ==
[2020-05-26 13:42] LABS: INR 0.99; PARTIAL THROMBOPLASTIN TIME 30.2 seconds (23.8-35.5); PROTHROMBIN TIME 13.6 seconds (11.9-14.5)
== END ==
LOC: US 12:59
PROVIDERS: ATTEND Internal Medicine Gastroenterology
DX: K74.69 Other cirrhosis of liver (principal); E11.9 Type 2 diabetes mellitus without complications; I10 Essential (primary) hypertension; Z71.3 Dietary counseling and surveillance; E66.9 Obesity, unspecified
CPT/HCPCS: 36415; 49083; 85014; 85049; 85610; 85730; 87070; 87205

== ENCOUNTER → 2020-09-08 | Outpatient (CLI) | payer MEDICARE ==
[~2020-09-08] MED LIST changes: +FAMOTIDINE20 MG PO; +METFORMIN HCL1000 MG PO; +METFORMIN HCL850 MG PO; +NIFEDIPINE ER30 M1 PO; +OMEPRAZOLE40 MG PO
== END ==
LOC: LAB 06:23
PROVIDERS: ATTEND Anesthesiology
DX: Z01.818 Encounter for other preprocedural examination (principal)
CPT/HCPCS: 36415; 84132

== ENCOUNTER → 2020-09-24 | Outpatient (CLI) | payer MEDICARE | LOC: CT 13:55 | PROVIDERS: ATTEND Family Medicine | DX: R44.3 Hallucinations, unspecified (principal); R41.0 Disorientation, unspecified | CPT/HCPCS: 70450 ==

== ENCOUNTER → 2020-12-01 | Outpatient (CLI) | payer MEDICARE | LOC: LAB 06:13 | PROVIDERS: ATTEND Anesthesiology | DX: Z01.812 Encounter for preprocedural laboratory examination (principal) | CPT/HCPCS: 36415; 84132 ==